=== PATIENT | male | born 1940 | race Caucasian/White ===

== ENCOUNTER 2017-11-07 04:51 | Inpatient (IN) | payer OTHER ==
[~2017-11-07] VITALS: Ht 180.3 cm; Wt 105.3 kg
[~2017-11-07 04:51] MED LIST: AMLO-110 PO; ASPEC325 PO; ASTN; ATV/1 PO; ATV1 PO; CETI10TA84 PO; CRS10 PO; FINA5TAB PO; FLV400 PO; METO25TA4 PO; NTRGSL/4 UT; PANT40TA PO
[2017-11-07] MEDS ORDERED: LORAZEPAM 2 MG/ML 1 ML VIAL IV STA (04:56)
[2017-11-07] MEDS ORDERED: SODIUM CHLORIDE 0.9% 250ML 250 ML IV STA (04:56)
[2017-11-07] MEDS ORDERED: ASPI-113 PO (05:10)
[2017-11-07] MEDS ORDERED: ROSU20TA PO (05:10)
[2017-11-07] MEDS ORDERED: LOSA1TAB38 PO (05:10)
[2017-11-07] MEDS ORDERED: FLV1 PO (05:10)
--- NOTE | 2017-11-07 05:17 | EMERGENCY ROOM VISIT NOTE ---
History First contact with patient: 04:56 Chief Complaint: SYNCOPE Stated Complaint: SYNCOPE Nursing Triage Summary: Patient arrived via EMS. EMS reports patient was sitting on toilet and stood up. Patient states he does not remember what happened after that but woke up laying supine on the floor with EMS around him. Patient reports that he had diarhea today and when he woke up he was very diaphoretic. Patient reports history of 3 FL and multiple stents. History of Present Illness The patient is a 77 year old male who presents to the Emergency Room for evaluation post syncope. Patient notes he awoke this evening with abdominal discomfort which relieved itself with diarrhea when he went to bathroom. Shortly there-after he must have passed out as found him laying on floor after hearing a noise in the bathroom. Per he was unconscious for almost 10 minutes and was just waking up as EMS arrived. EMS notes he was pale, diaphoretic, hypotensive, bradycardic and unwell on arrival. With IV, 750ml IV fluid and Zofran 4mg IV x 2 he has vastly improved. Patient notes he vaguely remembers EMS arriving but nothing prior to that. He notes associated right frontal headache, nausea continues, and fatigue. Denies neck pain, vision changes, vomiting, back pain, chest pain, abdominal pain, shortness of breath nor other symptoms. He has had no recent leg swelling, rashes, fevers, bruising , urinary symptoms nor other symptoms. He does not know if any black or bloody stools but hasn't noticed any. No medications taken extra this evening. Takes Asa 325mg PO daily but denies other blood thinner usage. Notes CAD history with multiple stents. He has previously been on Coumadin due to MIs but notes off this due to large thigh hematoma many years ago. He denies history of PE, DVT, Stroke, Seizures. Denies syncope issues in past. No recent reason to suspect dehydration other than single episode diarrhea this evening. Review of Systems See HPI for pertinent positives & negatives. A total of 10 systems reviewed and were otherwise negative. Past Medical/Surgical History Medical Problems: (1) CVA (cerebral vascular accident) HTN, Prostate enlargement, CAD, Anxiety, Hyperlipidemia Social History Smoking Status: Never Smoker Marital Status: Occupation Status: retired Current/Historical Medications Scheduled Amlodipine (Norvasc), 5 MG PO QPM Aspirin Enteric Coated (Ecotrin Or Generic), 325 MG PO QAM Azelastine Hcl (Astelin Nasal [place]), 200 SPRAYS NA PRN Cetirizine (Zyrtec), 10 MG PO QAM Finasteride (Proscar), 5 MG PO QPM Folic Acid (Folic Acid), 1 MG PO QAM Losartan Potassium (Cozaar), Unknown Dose PO BID Metoprolol Succinate (Toprol Xl), 25 MG PO QAM Nitroglycerin (Nitrostat), 0.4 MG UT PRN Pantoprazole (Protonix), 40 MG PO QAM Rosuvastatin Calcium (Crestor), 20 MG PO QPM Scheduled PRN Lorazepam (Ativan), 1 MG PO BID PRN for Anxiety/Agitation Physical Exam Vital Signs Date Time Temp Pulse Resp B/P (MAP) Pulse Ox O2 Delivery O2 Flow Rate FiO2 11/07/17 06:20 51 14 107/53 96 Room Air 11/07/17 05:08 49 11/07/17 05:01 36.8 52 16 124/72 95 Room Air 11/07/17 05:01 95 Room Air 11/07/17 05:01 52 16 124/72 95 Room Air 51 129/71 53 125/73 Physical Exam GENERAL: Patient is tired appearing and in mild distress. EYES: No scleral icterus, unremarkable pupils. ENT: Mucous membranes moist, no nasal congestion. NECK: No masses appreciated, no meningismus, trachea is midline. RESPIRATORY: No dyspnea. Clear to auscultation and equal bilaterally. No wheeze , no rhonchi. CARDIOVASCULAR: Bradycardic. No murmurs, rubs, gallops appreciated. GASTROINTESTINAL: Abdomen soft, nontender, no peritonitis. Bowel sounds positive. No masses appreciated. BACK: No midline tenderness, no CVA tenderness EXTREMITIES: Normal motion all extremities, no cyanosis, no edema. NEUROLOGIC: Alert and oriented, no acute motor or sensory deficits, no focal weakness, cranial nerves grossly intact. SKIN: No rash, no jaundice, no diaphoresis. Medical Decision & Procedures ER Provider Diagnostic Interpretation: X ray results are stated below per my interpretation: Chest: 1 view: No infiltrate, no effusion, normal cardiac border. KUB: 2 view: non specific bowel gas pattern without obstruction appreciated. Radiology results stated below per my review and radiologist interpretation: CT HEAD: Comparison: CT head 12/24/2008. A 1.7 cm region of hypodensity in the right occipital lobe (series 2, image 15) could represent a recent infarct or volume averaging with a sulcus. Further evaluation with MRI may be performed as clinically indicated. Mild chronic small vessel ischemic changes in the cerebral white matter. No ICH or mass effect. No skull fracture. Visualized sinuses and mastoid air cells are clear. Radiologist: Lakshmi Nava M.D. Laboratory Results 11/07/17 04:29 Red Blood Count 4.78, Mean Corpuscular Volume 92.9, Mean Corpuscular Hemoglobin 31.8, Mean Corpuscular Hemoglobin Concent 34.2, Mean Platelet Volume 9.9, Neutrophils (%) (Auto) 42.5, Lymphocytes (%) (Auto) 44.4, Monocytes (%) (Auto) 9.2, Eosinophils (%) (Auto) 3.0, Basophils (%) (Auto) 0.3, Neutrophils # (Auto) 3.28, Lymphocytes # (Auto) 3.43, Monocytes # (Auto) 0.71, Eosinophils # (Auto) 0.23, Basophils # (Auto) 0.02 11/07/17 04:29 Test 11/07/17 04:29 11/07/17 06:33 White Blood Count 7.72 K/uL (4.8-10.8) Red Blood Count 4.78 M/uL (4.7-6.1) Hemoglobin 15.2 g/dL (14.0-18.0) Hematocrit 44.4 % (42-52) Mean Corpuscular Volume 92.9 fL (80-100) Mean Corpuscular Hemoglobin 31.8 pg (25-34) Mean Corpuscular Hemoglobin Concent 34.2 g/dl (32-36) Platelet Count 195 K/uL (130-400) Mean Platelet Volume 9.9 fL (7.4-10.4) Neutrophils (%) (Auto) 42.5 % Lymphocytes (%) (Auto) 44.4 % Monocytes (%) (Auto) 9.2 % Eosinophils (%) (Auto) 3.0 % Basophils (%) (Auto) 0.3 % Neutrophils # (Auto) 3.28 K/uL (1.4-6.5) Lymphocytes # (Auto) 3.43 K/uL (1.2-3.4) Monocytes # (Auto) 0.71 K/uL (0.11-0.59) Eosinophils # (Auto) 0.23 K/uL (0-0.5) Basophils # (Auto) 0.02 K/uL (0-0.2) RDW Standard Deviation 44.0 fL (36.4-46.3) RDW Coefficient of Variation 13.0 % (11.5-14.5) Immature Granulocyte % (Auto) 0.6 % Immature Granulocyte # (Auto) 0.05 K/uL (0.00-0.02) Prothrombin Time 10.2 SECONDS (9.0-12.0) Prothromb Time International Ratio 1.0 (0.9-1.1) Activated Partial Thromboplast Time 21.9 SECONDS (21.0-31.0) Partial Thromboplastin Ratio 0.8 Anion Gap 5.0 mmol/L (3-11) Est Creatinine Clear Calc Drug Dose 68.6 ml/min Estimated GFR () 74.1 Estimated GFR (Non- 63.9 BUN/Creatinine Ratio 20.0 (10-20) Calcium Level 8.5 mg/dl (8.5-10.1) Phosphorus Level 3.5 mg/dl (2.5-4.9) Magnesium Level 2.2 mg/dl (1.8-2.4) Total Bilirubin 0.7 mg/dl (0.2-1) Direct Bilirubin 0.2 mg/dl (0-0.2) Aspartate Amino Transf (AST/SGOT) 19 U/L (15-37) Alanine Aminotransferase (ALT/SGPT) 26 U/L (12-78) Alkaline Phosphatase 71 U/L (45-117) Total Creatine Kinase 84 U/L (39-308) Creatine Kinase MB 1.6 ng/ml (0.5-3.6) Creatine Kinase MB Ratio 1.9 (0-3.0) Troponin I < 0.015 ng/ml (0-0.045) Total Protein 6.2 gm/dl (6.4-8.2) Albumin 3.4 gm/dl (3.4-5.0) Lipase 84 U/L (73-393) Medications Administered Medications (Trade) Dose Ordered Sig/Francesco Route Start Time Stop Time Status Last Admin Dose Admin Sodium Chloride 250 ml @ 999 mls/hr Q16M STAT IV 11/07/17 04:56 11/07/17 05:11 DC 11/07/17 04:56 999 MLS/HR Lorazepam (Ativan Inj) 0.5 mg NOW STAT IV 11/07/17 04:56 11/07/17 05:03 DC 11/07/17 05:16 0.5 MG Medical Decision Differential: Vaso-vagal, Intracerebral Event, Neurologic, Infectious, Volume Deficiency, Hypoglycemia, Electrolyte Abnormality, Cardiac Source, Toxicologic, amongst other pathologies entertained. 77 yr old male arrives for evaluation following syncopal event. Other than some residual nausea and mild right frontal headache he has no other symptoms and looks well. Chronically bradycardic with prolonged [place] which is unchanged from previous EKG. He has no evidence acute stroke by examination. He has no cp, sob, nor hypoxia to suggest PE. Symptoms not consistent with dissections. No fevers, no wbc elevation and no infectious findings. With getting up in middle of night and having diarrhea seems likely vagal, however felt with his history work-up necessary. CT reveals possible subacute infarct right occipital area. He is not TPA candidate given minimal symptoms and findings on CT, nor does he require Stroke Alert. Work-up otherwise is benign at this time. Will need further work up by hospitalist for MRI, cardiac rule out, etc. Patient stable and feeling improved with fluids and small dose IV ativan for nausea. Discussed with Dr Coughlin who will evaluate patient further. Head Trauma GCS Score: 15 Medication Reconcilliation Current Medication List: was personally reviewed by me Blood Pressure Screening Patient's blood pressure: Normal blood pressure Impression Primary Impression: Syncope Additional Impression: Abnormal CT scan of head Departure Information Referrals Randy Bemrudez D.O. (PCP) Patient Instructions My [facility] Problem Qualifiers
[2017-11-07 05:22] LABS: BASO % 0.3 %; BASO ABS # 0.02 K/uL (0-0.2); EOS ABS # 0.23 K/uL (0-0.5); HEMATOCRIT 44.4 % (42-52); HEMOGLOBIN 15.2 g/dL (14.0-18.0); IG# 0.05 K/uL (0.00-0.02); LYMPH % 44.4 %; LYMPH ABS # 3.43 K/uL (1.2-3.4); MEAN CELL VOLUME 92.9 fL (80-100); MEAN CORPUSCULAR HEMOGLOBIN 31.8 pg (25-34); MEAN CORPUSCULAR HGB CONC 34.2 g/dl (32-36); MEAN PLATELET VOLUME 9.9 fL (7.4-10.4); MONO % 9.2 %; MONO ABS # 0.71 K/uL (0.11-0.59); NEUT % 42.5 %; NEUT ABS # 3.28 K/uL (1.4-6.5); PLATELET COUNT 195 K/uL (130-400); WHITE BLOOD COUNT 7.72 K/uL (4.8-10.8)
[2017-11-07 05:28] LABS: PTT PATIENT 21.9 SECONDS (21.0-31.0)
[2017-11-07 05:39] LABS: ALBUMIN 3.4 gm/dl (3.4-5.0); ALT/SGPT 26 U/L (12-78); AST/SGOT 19 U/L (15-37); BLOOD UREA NITROGEN 22 mg/dl (7-18); CALCIUM 8.5 mg/dl (8.5-10.1); CARBON DIOXIDE 27 mmol/L (21-32); CREATININE 1.12 mg/dl (0.60-1.40); GLUCOSE 170 mg/dl (70-99); LIPASE 84 U/L (73-393); POTASSIUM 3.8 mmol/L (3.5-5.1); SODIUM 138 mmol/L (136-145)
[2017-11-07 05:42] LABS: ALKALINE PHOSPHATASE 71 U/L (45-117); CKMB 1.6 ng/ml (0.5-3.6); PHOSPHORUS 3.5 mg/dl (2.5-4.9); TOTAL PROTEIN 6.2 gm/dl (6.4-8.2)
--- NOTE | 2017-11-07 06:18 | DIAGNOSTIC IMAGING REPORT ---
CHEST ONE VIEW PORTABLE CLINICAL HISTORY: Generalized Weakness dyspnea COMPARISON STUDY: 06/01/2010 FINDINGS: The bones soft tissues and hemidiaphragms are normal. The cardiomediastinal silhouette is normal. The lungs are clear. The pulmonary vasculature is normal. IMPRESSION: Negative chest. The above report was generated using voice recognition software. It may contain grammatical, syntax or spelling errors. Electronically signed by: Perico Smith M.D. 11/07/2017 6:17 AM Dictated Date/Time: 11/07/2017 6:17 AM
--- NOTE | 2017-11-07 06:29 | DIAGNOSTIC IMAGING REPORT ---
KUB CLINICAL HISTORY: persistent vomiting COMPARISON STUDY: No previous studies for comparison. FINDINGS: The soft tissues, psoas shadows, renal outlines and intestinal gas pattern appear normal. There is no evidence for bowel obstruction. No abnormal abdominal calcifications are seen. IMPRESSION: Normal study. The above report was generated using voice recognition software. It may contain grammatical, syntax or spelling errors. Electronically signed by: Perico Smith M.D. 11/07/2017 6:28 AM Dictated Date/Time: 11/07/2017 6:28 AM
--- NOTE | 2017-11-07 06:57 | DIAGNOSTIC IMAGING REPORT ---
CT SCAN OF THE BRAIN WITHOUT IV CONTRAST CLINICAL HISTORY: Generalized weakness. COMPARISON STUDY: CT of the brain dated 12/24/2008. TECHNIQUE: Unenhanced axial CT scan of the brain is performed from the vertex to the skull base. A dose lowering technique was utilized adhering to the principles of ALARA. CT DOSE: 614.27 mGy.cm FINDINGS: Brain parenchyma: There are age-related involutional changes noting mild subcortical and periventricular microangiopathic change. There is no hemorrhage, mass effect, or evidence of acute territorial ischemia by CT criteria. Parks-white matter is preserved. No extra-axial fluid collection is seen. Ventricles, sulci, cisterns: Prominent secondary to involutional change. Intracranial vasculature: There is atherosclerotic calcification of the cavernous carotid and vertebral arteries. Calvarium: Unremarkable. Sinuses and mastoids: The visualized paranasal sinuses are clear. The mastoid air cells are well pneumatized. Orbits: The bony orbits are grossly intact. IMPRESSION: There is no hemorrhage, mass effect, or evidence of acute territorial ischemia by CT criteria. Electronically signed by: Tex Serrano M.D. 11/07/2017 6:56 AM Dictated Date/Time: 11/07/2017 6:55 AM
[2017-11-07] MEDS ORDERED: ATROPINE SO4 1 MG/ML 1ML VIAL IV PRN (07:30)
[2017-11-07] MEDS ORDERED: PROCHLORPERAZINE INJ 5 MG in SYRINGE 4 ML IV PRN (07:30)
[2017-11-07] MEDS ORDERED: TRAMADOL HCL 50 MG TAB PO PRN (07:30)
[2017-11-07] MEDS ORDERED: MoRPHine SULFATE 4 MG/ML 1 ML CARP\\VIAL IV PRN (07:30)
[2017-11-07] MEDS ORDERED: NITROGLYCERIN 0.4 MG SL PER TAB CHARGE SL PRN (07:30)
[2017-11-07] MEDS ORDERED: NITROGLYCERIN 0.4 MG SL PER TAB CHARGE UT SCH (07:30)
[2017-11-07] MEDS ORDERED: LORAZEPAM 1 MG TAB PO PRN (07:30)
[2017-11-07] MEDS ORDERED: POTASSIUM CHLORIDE 10 MEQ TABCR PO STA (07:48)
[2017-11-07 08:15] LABS: HEMOGLOBIN A1C 6.1 % (4.5-5.6)
[2017-11-07] MEDS ORDERED: IV FLUIDS COMPLETED PRN (08:15)
[2017-11-07 08:30] VITALS: BP 136/71; PULSE 54; TEMP 37; O2SAT 96; Ht 180.3 cm; Wt 105.3 kg
[2017-11-07] MEDS ORDERED: NSS + 20MEQ KCL 1000ML 1,000 ML IV ONE (09:00)
--- NOTE | 2017-11-07 09:06 | HISTORY & PHYSICAL EXAMINATION ---
DATE OF ADMISSION: 11/07/2017 PRIMARY CARE DOCTOR: Dr. Bermudez CHIEF COMPLAINT: Syncope. HISTORY OF PRESENT ILLNESS: History obtained from the patient, , and records. Medical history significant for CAD intervention, hypertension, hyperlipidemia, PVD (thoracic aortic aneurysm), hx PE status post Coumadin, sleep apnea, BPH, chronic back pain. Rcent confinement last in November 2011 under Orthopedic service for back surgery. Last few days, the patient not feeling well,. Two days ago, the patient had blurred vision, transient, bilateral. Yesterday abdominal cramping, loose stools, nonbloody. This morning had the urge to go to the bathroom, was feeling lightheaded as he tried to get up from the commode. Subsequently passed out. Patient was out for about 10 minutes on the commode as per . Patient denies chest pain or shortness of breath. MEDICAL HISTORY: As above. Colonoscopy a few weeks ago. 2D echo from February 2017 showed aortic root enlargement, EF 55%, small-sized basal inferior posterior wall motion abnormality. diastolic dysfunction. SURGERIES: He has had back surgery, TURP HOME MEDICATIONS: Include Ativan, Cozaar, Toprol, Nitrostat, Protonix, Crestor, aspirin, Astelin, Norvasc, Zyrtec, Proscar, folic acid. ALLERGIES: OMEPRAZOLE. FAMILY HISTORY: There is a family history of heart disease. PERSONAL AND SOCIAL HISTORY: Nonsmoker, no ETOH intake. 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 REVIEW OF SYSTEMS: As per HPI, all 10 systems reviewed, all other ROS negative. PHYSICAL EXAMINATION: VITAL SIGNS: Blood pressure was noted to be 124/72, pulse rate 52, later 49, RR 16, temperature 36.6, sats 94 on room air. Orthostatic vitals were negative. GENERAL: Obese. Comfortable, no respiratory distress. SKIN: Warm. Normal color. HEENT: Alopecia. Garza-[place] Ii palpebral conjunctivae. No ptosis. rhinophyma. Dry buccal mucosa. NECK: Short neck, supple. CHEST: Decreased effort. No tenderness. HEART: Bradycardic. No murmur. ABDOMEN: Some distention, no tender. EXTREMITIES: No edema, no bruising noted, no tenderness. NEUROLOGIC EXAMINATION: Coherent. No gross focality. LABORATORY DATA: hemoglobin 15.2, hematocrit 35.2, white blood cells 7.7, platelets 195. Sodium 138, potassium 3.8, chloride 106, CO2 27, BUN 30, creatinine 1.2, glucose 170. Troponin negative at 0.015. CT head showed no hemorrhage or mass effect, no ischemia. KUB x-ray, normal study. Chest x-ray showed negative pathology. EKG as per my interpretation, rate 50, first-degree AV block, Q-waves, some flattening in inferior leads. PRWP ASSESSMENT: 1. Syncope possible orthostasis 2 to diarrheal illness, rule out cdiff, recent colonoscopy (orthostatic VS were negative at the ER however) ? symptomatic bradycardia 2. HTN, patient's BP on the lower side 3. CAD, status post intervention 4. PVD 5. hx PE sp Coumadin 6. hyperglycemia, rule out diabetes. PLAN: Observation in PCU 2D echo RE syncope IVF Stool C. difficile hold beta singh for now for bradycardia. Cardio consult RE bradycardia. (Patient known to [facility]). Check Hemoglobin A1c DVT prophylaxis, Lovenox subcutaneously. FULL CODE. MTDD
[2017-11-07] MEDS: PANTOprazole SOD 40 MG TAB PO SCH (09:54)
[2017-11-07] MEDS: LOSARTAN POTASSIUM 50 MG TAB PO SCH ×2 (09:54→20:29)
[2017-11-07] MEDS: CETIRIZINE HCL 10 MG TAB PO SCH (09:54)
[2017-11-07] MEDS: ASPIRIN 325 MG ECTAB PO SCH (09:55)
[2017-11-07] MEDS: ENOXAPARIN 40 MG/0.4 ML SYR SC SCH (09:56)
--- NOTE | 2017-11-07 11:02 | Cardiology Consultation ---
Cardiology Consultation Date of Consultation: Nov 07, 2017 Requesting Physician: Dr. Waqar Coppola re: syncope Attending Financial Services Associate: Dr. Javier Nelson History of Present Illness Patient is a 77 year old male presents to the emergency department after syncopal episode. Patient reports diarrheal illness beginning yesterday afternoon. He woke in the middle night with abdominal discomfort and a significant urge to defecate. He sat on the commode, after he moved his bowels patient apparently lost consciousness. His came in and witnessed him slumped against the wall. There were no tonic-clonic movements. No tongue biting. reports unconscious episode lasted nearly 10 minutes. No post ictal state. Patient reports history of syncope on at least 2 occasions during his adult life. Telemetry reveals sinus bradycardia. Baseline ECG also reveals sinus bradycardia. Beta-singh has been placed on hold. Patient reports some intermittent visual changes he associates with complex migraine headaches. Notes some intermittent flashing which occurred yesterday. Denies focal weakness, slurred speech, dysphagia, falls, or paresthesias. No evidence of acute CVA per CT of the head. Past Medical/Surgical History Problem List: Medical Problems: (1) CVA (cerebral vascular accident) Family History Denies family history of premature coronary artery disease or sudden cardiac . Social History Smoking Status: Never Smoker Marital Status: Housing Status: lives with family Occupation: retired Review Of Systems General: The patient denies weight change, night sweats, fever, chills. Head: The patient denies headache and prior head trauma. Cardiovascular: The patient denies chest pain or chest discomfort, dyspnea on exertion, palpitations, PND, orthopnea, edema, spontaneous shortness of breath, syncope and near syncope. Pulmonary: The patient denies cough, wheeze, pleurisy, hemoptysis, sputum, and excessive snoring. Gastrointestinal: The patient denies nausea, vomiting, diarrhea, constipation, bloating, hematemesis, hematochezia, and abdominal pain. Skin: The patient denies diaphoresis and rash. Musculoskeletal: The patient denies joint pain, joint swelling, myalgia, back pain, neck pain and prior injuries. Neurological: The patient denies prior stroke and seizures Allergies Coded Allergies: Omeprazole (Verified Allergy, Unknown, "SENSITIVITY", 11/07/17) Propoxyphene (Verified Allergy, Unknown, "SENSITIVITY", 11/07/17) Medications Reported Home Medications Medications Dose Route/Sig Max Daily Dose Days Date Category Cozaar (Losartan Potassium) Unknown Strength Tab Unknown Dose PO BID 11/07/17 Reported Folic Acid 1 Mg Tab 1 Mg PO QAM 11/07/17 Reported Ecotrin Or Generic (Aspirin) 325 Mg Ectab 325 Mg PO QAM 11/07/17 Reported Crestor (Rosuvastatin Calcium) 20 Mg Tab 20 Mg PO QPM 11/07/17 Reported Toprol Xl (Metoprolol Succinate) 25 Mg Tabcr 25 Mg PO QAM 11/21/11 Reported Astelin Nasal [place] (Azelastine Hcl) 200 Sprays/30 Ml [place] 200 Sprays NA PRN 11/21/11 Reported Ativan (Lorazepam) 1 Mg Tab 1 Mg PO BID PRN 11/21/11 Reported Zyrtec (Cetirizine HCl) 10 Mg Tab 10 Mg PO QAM 05/27/10 Reported Proscar (Finasteride) 5 Mg Tab 5 Mg PO QPM 05/27/10 Reported Norvasc (Amlodipine Besylate) 5 Mg Tab 5 Mg PO QPM 05/27/10 Reported Protonix (Pantoprazole Sodium) 40 Mg Tab 40 Mg PO QAM 12/24/08 Reported Nitrostat (Nitroglycerin) 0.4 Mg Tab 0.4 Mg UT PRN 12/24/08 Reported Physical Exam Vital Signs (Last 8hrs): Last 8 Hrs Date Time Temp Pulse Resp B/P (MAP) Pulse Ox O2 Delivery O2 Flow Rate FiO2 11/07/17 08:30 37.0 54 16 136/71 96 Room Air 11/07/17 08:15 60 16 117/57 95 11/07/17 06:20 51 14 107/53 96 Room Air 11/07/17 05:08 49 11/07/17 05:01 36.8 52 16 124/72 95 Room Air 11/07/17 05:01 95 Room Air 11/07/17 05:01 52 16 124/72 95 Room Air 51 129/71 53 125/73 General Appearance: Alert and Oriented x3. NAD. Head: Normocephalic Atraumatic. Eyes: PERRLA, EOMI, conjunctiva and sclera clear Neck: Supple. No carotid bruits noted. No JVD. No HJD. Respiratory: Breath sounds clear to auscultation bilaterally. No w/r/r. Cardiovascular: Reg rate and rhythm. S1 and S2 noted. No murmurs, rubs, gallops. PMI non displace. Abdomen: Normal bowel sounds, soft nontender. no abdominal bruits. Extremities: No edema, no clubbing or cyanosis. distal pulses 2/4 bilaterally. Neuro: No focal deficits. Psychiatric: Normal affect. Data Last 24 Hours Test 11/07/17 04:29 11/07/17 09:45 White Blood Count 7.72 K/uL Red Blood Count 4.78 M/uL Hemoglobin 15.2 g/dL Hematocrit 44.4 % Mean Corpuscular Volume 92.9 fL Mean Corpuscular Hemoglobin 31.8 pg Mean Corpuscular Hemoglobin Concent 34.2 g/dl Platelet Count 195 K/uL Mean Platelet Volume 9.9 fL Neutrophils (%) (Auto) 42.5 % Lymphocytes (%) (Auto) 44.4 % Monocytes (%) (Auto) 9.2 % Eosinophils (%) (Auto) 3.0 % Basophils (%) (Auto) 0.3 % Neutrophils # (Auto) 3.28 K/uL Lymphocytes # (Auto) 3.43 K/uL Monocytes # (Auto) 0.71 K/uL Eosinophils # (Auto) 0.23 K/uL Basophils # (Auto) 0.02 K/uL RDW Standard Deviation 44.0 fL RDW Coefficient of Variation 13.0 % Immature Granulocyte % (Auto) 0.6 % Immature Granulocyte # (Auto) 0.05 K/uL Prothrombin Time 10.2 SECONDS Prothromb Time International Ratio 1.0 Activated Partial Thromboplast Time 21.9 SECONDS Partial Thromboplastin Ratio 0.8 Sodium Level 138 mmol/L Potassium Level 3.8 mmol/L Chloride Level 106 mmol/L Carbon Dioxide Level 27 mmol/L Anion Gap 5.0 mmol/L Blood Urea Nitrogen 22 mg/dl Creatinine 1.12 mg/dl Est Creatinine Clear Calc Drug Dose 68.6 ml/min Estimated GFR () 74.1 Estimated GFR (Non- 63.9 BUN/Creatinine Ratio 20.0 Random Glucose 170 mg/dl Estimated Average Glucose 128 mg/dl Hemoglobin A1c 6.1 % Calcium Level 8.5 mg/dl Phosphorus Level 3.5 mg/dl Magnesium Level 2.2 mg/dl Total Bilirubin 0.7 mg/dl Direct Bilirubin 0.2 mg/dl Aspartate Amino Transf (AST/SGOT) 19 U/L Alanine Aminotransferase (ALT/SGPT) 26 U/L Alkaline Phosphatase 71 U/L Total Creatine Kinase 84 U/L Creatine Kinase MB 1.6 ng/ml Creatine Kinase MB Ratio 1.9 Troponin I < 0.015 ng/ml Total Protein 6.2 gm/dl Albumin 3.4 gm/dl Lipase 84 U/L Thyroid Stimulating Hormone (TSH) 4.090 uIu/ml Lyme Disease IgG Antibody NEG Lyme Disease IgM Antibody NEG Urine Color YELLOW Urine Appearance CLEAR Urine pH 5.0 Urine Specific [place] 1.022 Urine Protein NEG Urine Glucose (UA) NEG Urine Ketones NEG Urine Occult Blood NEG Urine Nitrite NEG Urine Bilirubin NEG Urine Urobilinogen NEG Urine Leukocyte Esterase NEG Urine WBC (Auto) 1-5 /hpf Urine RBC (Auto) 0-4 /hpf Urine Hyaline Casts (Auto) 1-5 /lpf Urine Epithelial Cells (Auto) 5-10 /lpf Urine Bacteria (Auto) NEG Imaging: CT of the head negative for acute ischemia EKG: Sinus bradycardia Telemetry reviewed: Sinus rhythm and sinus bradycardia Assessment & Plan Final impression: 1. 77-year-old male admitted with acute syncope - symptoms consistent with vasovagal etiology. History of prior syncope on at least 2 occasions during adult life. Chronic bradycardia in the setting of beta-singh use noted. 2. Chronic CAD with history of remote RCA interventions ultimately leading to RCA occlusion and stable class I-II angina pectoris 3. 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 History of pulmonary embolus previously treated with anticoagulation 5. Transient visual changes previously associated with complex migraine Plan/recommendations: Discontinue Toprol-XL. Recommend 14 days ZIO monitor in the outpatient setting and follow-up with Dr. Poole as scheduled November 22, 2017. Other cardiovascular medications will be continued as listed above which I reviewed and updated today. Consider further ophthalmologic evaluation of 'flashing' reported by patient. Continue to monitor telemetry during hospitalization. Thank you for allowing me to participate in the care of your patient.
[2017-11-07 11:41] VITALS: BP 136/86; PULSE 65; TEMP 36.6; O2SAT 96
[2017-11-07 15:00] VITALS: BP 147/81; PULSE 59; TEMP 36.3; TEMP 36.6; O2SAT 93
--- NOTE | 2017-11-07 16:30 | ECHOCARDIOGRAM REPORT ---
*NOTICE TO RECEIVING [employer]ENCY This information is strictly Confidential and protected under [place] law. [place] law prohibits you from making any further disclosure of this information unless further disclosure is expressly permitted by the written consent of the person to whom it pertains or is authorized by law. A general authorization for the release of medical or other information is not sufficient for this purpose. Hospital accepts no responsibility if the information is made available to any other person, INCLUDING THE PATIENT. Interpretation Summary * Name: JUANY MALONE Study Date: 11/07/2017 08:52 AM BP: 107/53 mmHg * Patient Location: [facility] HR: 51 * : 1940 (M/d/yyyy) Gender: Male Height: 70 in * Age: 77 yrs Ethnicity: [place] Weight: 220 lb * Ordering Physician: Ernesto Webb * Referring Physician: Self, Referred * Performed By: Millie Pierre RDCS * * Reason For Study: Syncope * BSA: 2.2 m2 * The study was technically adequate. * There is no comparison study available. * -- Conclusions -- * Ejection Fraction = 55-60%. * There is mild concentric left ventricular hypertrophy. * There is a small wall motion abnormality involving the base posterior, and base inferior garcia with hypokinesis of the segments. * Mild aortic regurgitation. * The aortic root is severely enlarged, 5.0 cm. * The ascending aorta is moderately enlarged, 4.5 cm. * Grade I diastolic dysfunction, (abnormal relaxation pattern). Procedure Details * A complete two-dimensional transthoracic echocardiogram was performed (2D, M-mode, Doppler and color flow Doppler). Left Ventricle * The left ventricle is normal in size. * There is mild concentric left ventricular hypertrophy. * Ejection Fraction = 55-60%. * Left ventricular systolic function is normal. * There is a small wall motion abnormality involving the base posterior, and base inferior garcia with hypokinesis of the segments. Right Ventricle * The right ventricle is normal size. * The right ventricular systolic function is normal as assessed by tricuspid annular plane systolic excursion (TAPSE) (normal >1.5 cm). Atria * The left atrial size is normal. * Right atrial size is normal. * There is no evidence of atrial septal defect, but resolution does not allow assessment for a patent foramen ovale. Mitral Valve * The mitral valve is normal. * There is no mitral valve stenosis. * There is trace mitral regurgitation. Tricuspid Valve * The tricuspid valve is normal. * There is no tricuspid stenosis. * There is mild tricuspid regurgitation. * Doppler findings do not suggest pulmonary hypertension. Aortic Valve * The aortic valve is trileaflet. * Aortic stenosis is absent. * Mild aortic regurgitation. Pulmonic Valve * The pulmonary valve is inadequately visualized, but the Doppler data is adequate for interpretation. * There is no pulmonic valvular stenosis. * Trace pulmonic valvular regurgitation. Great Vessels * The aortic root is severely enlarged, 5.0 cm. The ascending aorta is moderately enlarged, 4.5 cm. Pericardium/Pleural * There is no pericardial effusion. Great Vessels * Normal inferior vena cava diameter and respiratory variation suggests normal central venous pressure. Left Ventricular Diastolic Function * Grade I diastolic dysfunction, (abnormal relaxation pattern). MMode 2D Measurements and Calculations IVSd 1.4 cm IVSs 1.7 cm LVIDd 3.4 cm LVIDs 2.3 cm LVPWd 0.88 cm LVPWs 1.6 cm IVS/LVPW 1.6 FS 31.1 % EDV(Teich) 46.5 ml ESV(Teich) 18.6 ml EF(Teich) 60.1 % EDV(cubed) 38.4 ml ESV(cubed) 12.5 ml EF(cubed) 67.3 % % IVS thick 16.5 % % LVPW thick 76.5 % LV mass(C)d 121.1 grams LV mass(C)dI 55.7 grams/m\S\2 LV mass(C)s 131.5 grams LV mass(C)sI 60.5 grams/m\S\2 SV(Teich) 28.0 ml SI(Teich) 12.9 ml/m\S\2 SV(cubed) 25.8 ml SI(cubed) 11.9 ml/m\S\2 Ao root diam 4.8 cm Ao root area 17.9 cm\S\2 ACS 3.2 cm LA dimension 3.3 cm LA/Ao 0.68 LVAd ap4 40.8 cm\S\2 LVLd ap4 8.8 cm EDV(MOD-sp4) 156.8 ml EDV(sp4-el) 160.6 ml LVAs ap4 23.4 cm\S\2 LVLs ap4 7.1 cm ESV(MOD-sp4) 65.8 ml ESV(sp4-el) 65.5 ml EF(MOD-sp4) 58.0 % EF(sp4-el) 59.2 % LVAd ap2 39.1 cm\S\2 LVLd ap2 9.5 cm EDV(MOD-sp2) 138.2 ml EDV(sp2-el) 136.8 ml LVAs ap2 22.5 cm\S\2 LVLs ap2 8.6 cm ESV(MOD-sp2) 56.2 ml ESV(sp2-el) 50.3 ml EF(MOD-sp2) 59.3 % EF(sp2-el) 63.2 % LVLd %diff 7.3 % EDV(MOD-bp) 151.9 ml LVLs %diff 16.8 % ESV(MOD-bp) 64.3 ml EF(MOD-bp) 57.7 % SV(MOD-sp4) 91.0 ml SI(MOD-sp4) 41.9 ml/m\S\2 SV(MOD-sp2) 82.0 ml SI(MOD-sp2) 37.7 ml/m\S\2 SV(MOD-bp) 87.6 ml SI(MOD-bp) 40.3 ml/m\S\2 SV(sp4-el) 95.1 ml SI(sp4-el) 43.8 ml/m\S\2 SV(sp2-el) 86.4 ml SI(sp2-el) 39.8 ml/m\S\2 Doppler Measurements and Calculations MV E max deloris 56.6 cm/sec MV A max deloris 99.2 cm/sec MV E/A 0.57 MV dec time 0.24 sec Ao V2 max 111.7 cm/sec Ao max PG 5.0 mmHg Ao max PG (full) 1.3 mmHg AI max deloris 331.5 cm/sec AI max PG 44.0 mmHg AI dec slope 95.1 cm/sec\S\2 AI P1/2t 1021.2 msec LV V1 max PG 3.6 mmHg LV V1 max 95.5 cm/sec PA V2 max 105.3 cm/sec PA max PG 4.4 mmHg PI max deloris 160.5 cm/sec PI max PG 10.3 mmHg PI dec slope 62.1 cm/sec\S\2 PI P1/2t 756.6 msec TR max deloris 214.6 cm/sec
[2017-11-07 19:31] VITALS: BP 153/91; PULSE 76; TEMP 37; O2SAT 91
[2017-11-07] MEDS: AMLODIPINE BESYLATE 5 MG TAB PO SCH (20:30)
[2017-11-07] MEDS: ROSUVASTATIN CALCIUM 20 MG TAB PO SCH (20:30)
[2017-11-07] MEDS: FINASTERIDE 5 MG TAB PO SCH (20:30)
[2017-11-08] VITALS (8 sets, daily range): BP systolic 105–158; BP diastolic 62–90; PULSE 57–71; TEMP 36.6–37.1; O2SAT 93–98
[2017-11-08 07:22] LABS: BASO % 0.1 %; BASO ABS # 0.01 K/uL (0-0.2); EOS % 1.2 %; EOS ABS # 0.08 K/uL (0-0.5); HEMATOCRIT 43.6 % (42-52); IG# 0.02 K/uL (0.00-0.02); LYMPH % 18.5 %; LYMPH ABS # 1.24 K/uL (1.2-3.4); MEAN CELL VOLUME 92.4 fL (80-100); MEAN CORPUSCULAR HEMOGLOBIN 31.8 pg (25-34); MEAN CORPUSCULAR HGB CONC 34.4 g/dl (32-36); MEAN PLATELET VOLUME 9.7 fL (7.4-10.4); MONO % 6.4 %; MONO ABS # 0.43 K/uL (0.11-0.59); NEUT % 73.5 %; NEUT ABS # 4.91 K/uL (1.4-6.5); PLATELET COUNT 170 K/uL (130-400); RED CELL DISTRIBUTION WIDTH CV 12.9 % (11.5-14.5); RED CELL DISTRIBUTION WIDTH SD 43.6 fL (36.4-46.3); WHITE BLOOD COUNT 6.69 K/uL (4.8-10.8)
[2017-11-08] MEDS: CETIRIZINE HCL 10 MG TAB PO SCH (07:49)
[2017-11-08] MEDS: ASPIRIN 325 MG ECTAB PO SCH (07:49)
[2017-11-08] MEDS: PANTOprazole SOD 40 MG TAB PO SCH (07:49)
[2017-11-08] MEDS: LOSARTAN POTASSIUM 50 MG TAB PO SCH ×2 (07:49→20:38)
[2017-11-08] MEDS: ENOXAPARIN 40 MG/0.4 ML SYR SC SCH (07:50)
[2017-11-08 10:47] LABS: CALCIUM 8.4 mg/dl (8.5-10.1); CREATININE 0.96 mg/dl (0.60-1.40); POTASSIUM 3.9 mmol/L (3.5-5.1)
[2017-11-08] MEDS: ACETAMINOPHEN 325 MG TAB PO PRN ×2 (12:33→23:28)
[2017-11-08] MEDS: ROSUVASTATIN CALCIUM 20 MG TAB PO SCH (20:37)
[2017-11-08] MEDS: AMLODIPINE BESYLATE 5 MG TAB PO SCH (20:38)
[2017-11-08] MEDS: FINASTERIDE 5 MG TAB PO SCH (20:38)
--- NOTE | 2017-11-08 20:55 | Progress Note ---
Medicine Progress Note Date & Time of Visit: Nov 08, 2017 at 15:30 . Subjective CC: Follow-up visit for syncope and other problems. HPI: Feels better. No further episodes of syncope or near syncope. No chest pain, palpitations, dyspnea. No headaches. Visual changes improved, but still has some visual distortion. ROS: General- no fever, no chills Resp- no cough; no shortness of breath Cardiac- as noted above in HPI GI- no nausea, no vomiting, no diarrhea, no constipation - no dysuria, no difficulty voiding . Objective Last 8 Hrs Date Time Temp Pulse Resp B/P (MAP) Pulse Ox O2 Delivery O2 Flow Rate FiO2 11/08/17 20:37 137/82 (100) 11/08/17 19:40 Room Air 11/08/17 16:00 Room Air 11/08/17 15:42 36.7 65 18 133/75 (94) 95 Room Air Physical Exam: General- no distress Lungs- clear to auscultation; no respiratory distress Cardiovascular- RRR; no murmur or gallop appreciated; no JVD; no pretibial edema Abdomen- + bowel sounds, soft, nontender Extremities- no cyanosis; no calf tenderness Neuro- alert, oriented; PERRL, EOMI; visual avitia grossly intact; no facial palsy; no dysarthria; no aphasia; motor strength upper and lower extremities 5/5 Skin- warm & dry . Laboratory Results: Last 24 Hours Test 11/08/17 07:01 White Blood Count 6.69 K/uL Red Blood Count 4.72 M/uL Hemoglobin 15.0 g/dL Hematocrit 43.6 % Mean Corpuscular Volume 92.4 fL Mean Corpuscular Hemoglobin 31.8 pg Mean Corpuscular Hemoglobin Concent 34.4 g/dl Platelet Count 170 K/uL Mean Platelet Volume 9.7 fL Neutrophils (%) (Auto) 73.5 % Lymphocytes (%) (Auto) 18.5 % Monocytes (%) (Auto) 6.4 % Eosinophils (%) (Auto) 1.2 % Basophils (%) (Auto) 0.1 % Neutrophils # (Auto) 4.91 K/uL Lymphocytes # (Auto) 1.24 K/uL Monocytes # (Auto) 0.43 K/uL Eosinophils # (Auto) 0.08 K/uL Basophils # (Auto) 0.01 K/uL RDW Standard Deviation 43.6 fL RDW Coefficient of Variation 12.9 % Immature Granulocyte % (Auto) 0.3 % Immature Granulocyte # (Auto) 0.02 K/uL Sodium Level 140 mmol/L Potassium Level 3.9 mmol/L Chloride Level 110 mmol/L Carbon Dioxide Level 29 mmol/L Anion Gap 1.0 mmol/L Blood Urea Nitrogen 11 mg/dl Creatinine 0.96 mg/dl Est Creatinine Clear Calc Drug Dose 82.8 ml/min Estimated GFR () 89.3 Estimated GFR (Non- 77.0 BUN/Creatinine Ratio 11.7 Random Glucose 103 mg/dl Calcium Level 8.4 mg/dl Assessment & Plan SYNCOPE Episode of syncope while sitting on the toilet moving his bowels. Syncope probably combination of vasovagal episode and dehydration. No further symptoms. VISUAL CHANGES Patient describes visual changes the day prior to admission with left homonymous superior quadrantanopia. Field cut has improved, but patient still describes distorted vision. Head CT negative. Check MRI to rule out occipital event. CORONARY ARTERY DISEASE No anginal symptoms. Continue aspirin, metoprolol, statin. HYPERTENSION Follow titrate therapy. ANEURYSM THORACIC AORTA Aortic root measured 5.0 cm and ascending aorta 4.5 cm by echo. Measurements are comparable to CT performed 09/07/15. Ongoing management of hypertension and dyslipidemia. Follow. DYSLIPIDEMIA Continue rosuvastatin. VTE PROPHYLAXIS SQ enoxaparin. Ambulate. DISPOSITION Expected discharge to home. Internal Medicine follow-up with Dr. Bermudez. Cardiology follow-up with Dr. Poole. ADDENDUM: MRI performed this evening demonstrated subacute infarct right occipital lobe. Not candidate for TPA due to onset of symptoms day prior to admission. Already receiving aspirin; add clopidogrel. Initiate stroke protocol. Consult Neurology. . Current Inpatient Medications: Current Inpatient Medications Medications (Trade) Dose Ordered Sig/Francesco Route Start Time Stop Time Status Last Admin Dose Admin Enoxaparin Sodium (Lovenox Inj) 40 mg Q24H SC 11/07/17 09:00 12/07/17 08:59 11/08/17 07:50 40 MG Acetaminophen (Tylenol Tab) 650 mg Q4H PRN PO 11/07/17 07:30 12/07/17 07:29 11/08/17 12:33 650 MG Nitroglycerin (Nitrostat Tab) 0.4 mg UD PRN SL 11/07/17 07:30 12/07/17 07:29 Tramadol HCl (Ultram Tab) 25 mg Q6H PRN PO 11/07/17 07:30 12/07/17 07:29 Morphine Sulfate (MoRPHine SULFATE INJ) 4 mg Q3H PRN IV 11/07/17 07:30 11/21/17 07:29 Amlodipine Besylate (Norvasc Tab) 5 mg QPM PO 11/07/17 21:00 12/07/17 20:59 11/08/17 20:38 5 MG Aspirin (Ecotrin Tab) 325 mg QAM PO 11/07/17 09:00 12/07/17 08:59 11/08/17 07:49 325 MG Cetirizine HCl (zyrTEC TAB) 10 mg QAM PO 11/07/17 09:00 12/07/17 08:59 11/08/17 07:49 10 MG Finasteride (Proscar Tab) 5 mg QPM PO 11/07/17 21:00 12/07/17 20:59 11/08/17 20:38 5 MG Folic Acid (Folvite Tab) 1 mg QAM PO 11/07/17 09:00 12/07/17 08:59 11/08/17 07:49 1 MG Lorazepam (Ativan Tab) 1 mg BID PRN PO 11/07/17 07:30 12/07/17 07:29 Pantoprazole Sodium (Protonix Tab) 40 mg QAM PO 11/07/17 09:00 12/07/17 08:59 11/08/17 07:49 40 MG Rosuvastatin Calcium (Crestor Tab) 20 mg QPM PO 11/07/17 21:00 12/07/17 20:59 11/08/17 20:37 20 MG Miscellaneous Information (Order Awaiting Action) 1 ea QS N/A 11/07/17 16:00 12/07/17 15:59 Losartan Potassium (coZAAR TAB) 50 mg BID PO 11/07/17 09:00 12/07/17 08:59 11/08/17 20:38 50 MG Prochlorperazine Edisylate 5 mg/ Syringe 5 ml @ 5 mls/min Q6H PRN IV 11/07/17 07:30 12/07/17 07:29 Atropine Sulfate (Atropine Sulfate 1MG/Ml Inj) 0.5 mg UD PRN IV 11/07/17 07:30 12/07/17 07:29 Miscellaneous (Iv Fluids Completed) 1 ea PRN PRN N/A 11/07/17 08:15 11/07/18 08:14
--- NOTE | 2017-11-08 20:57 | DIAGNOSTIC IMAGING REPORT ---
BRAIN WITHOUT CONTRAST HISTORY: Mental status change visual changes, r/o stroke TECHNIQUE: Multiplanar multisequence MRI of the brain was performed without the use of contrast. COMPARISON STUDY: None FINDINGS: Acute infarct medial aspect right occipital lobe. Findings of mild to moderate cerebellar as well as cerebral atrophy. Moderate chronic small vessel change. Ventricular system is midline. Globes are symmetric. Moderate chronic small vessel change throughout both cerebral hemispheres. Increased signal within the right occipital region indicates that this is most likely a subacute infarct. IMPRESSION: 1. Subacute infarct right occipital lobe. 2. Atrophy. 3. Moderate chronic small vessel change The above report was generated using voice recognition software. It may contain grammatical, syntax or spelling errors. Electronically signed by: Perico Smith M.D. 11/08/2017 8:56 PM Dictated Date/Time: 11/08/2017 8:44 PM
[2017-11-08] MEDS ORDERED: PHARMACIST DISCHARGE MED REC CONSULT PRN (21:30)
[2017-11-09] VITALS (7 sets, daily range): BP systolic 107–170; BP diastolic 61–92; PULSE 56–73; TEMP 36.5–37.3; O2SAT 93–95
--- NOTE | 2017-11-09 06:50 | DIAGNOSTIC IMAGING REPORT ---
CAROTID DOPPLER NECK ART CLINICAL HISTORY: 77 years-old Male with Stroke. Acute strokelike symptoms COMPARISON: Brain MRI 11/08/2017 TECHNIQUE: Multiple real time sonographic images of the carotid bifurcations were obtained assessing espinoza scale, color Doppler and spectral wave form appearance FINDINGS: RIGHT CAROTID: The peak systolic velocity of the mid internal carotid artery measured 51 cm/sec. The end diastolic velocity measured 19.6 cm/sec. The ICA to CCA ratio measured 1.1 which correlates with a stenosis of 0-50%. Peak systolic velocity of the distal aspect right common carotid artery measured 59 cm/s. Blood pressure on the right measured 153/83. No significant atherosclerotic plaquing on the right. LEFT CAROTID: The peak systolic velocity of the mid internal carotid artery measured 53.5 cm/sec. The end diastolic velocity measured 19.5 cm/sec. The ICA to CCA ratio measured 1.6 which correlates with a stenosis of 0-50%. Peak systolic velocity of the distal left common carotid artery measured 45 cm/s. Blood pressure on the left measured 158/82. No significant atherosclerotic plaquing on the left. There is normal antegrade vertebral flow bilaterally. IMPRESSION: 1. No hemodynamically significant stenosis or significant atherosclerotic plaquing. 2. Normal antegrade vertebral flow bilaterally. The above report was generated using voice recognition software. It may contain grammatical, syntax or spelling errors. Electronically signed by: Abundio Drake M.D. 11/09/2017 6:49 AM Dictated Date/Time: 11/09/2017 6:45 AM
[2017-11-09] MEDS: ASPIRIN 81 MG ECTAB PO SCH (07:39)
[2017-11-09] MEDS: PANTOprazole SOD 40 MG TAB PO SCH (07:40)
[2017-11-09] MEDS: CETIRIZINE HCL 10 MG TAB PO SCH (07:40)
[2017-11-09] MEDS: CLOPIDOGREL BISULFATE 75 MG TAB PO SCH (07:40)
[2017-11-09] MEDS: ENOXAPARIN 40 MG/0.4 ML SYR SC SCH (07:41)
[2017-11-09] MEDS: METOPROLOL SUCC 25MG EXT REL TAB PO SCH (07:43)
--- NOTE | 2017-11-09 13:30 | Neurology Consultation ---
Neurology Consultation Date of Consultation: Nov 09, 2017. Attending Physician: Waqar Coppola M.D. Primary Care Physician: Randy Bermudez D.O. Reason for Consultation: stroke History of Present Illness Source: patient, spouse Arnulfo is a 77 year old male with PMH DC x 3 with 5 stents, hypertension, DL, PVD (thoracic aortic aneurysm), hx PE status post Coumadin, sleep apnea, BPH, chronic back pain. He states several days ago he had a headache with some blurring out of vision which was transient. He states he went fishing and stopped afterward for soda and was having some difficulty with seeing the CC at the self check out and had to have some assistance. He drove home and when sitting at the light he noticed the car traveling in front of him was faded out and then returned to his vision. He woke at 4am with some cramping in his stomach which he thought was going to be a bowel movement. He went to the bathroom was lightheaded with standing and passes out. His called the EMS. He was out for about 10 minutes was not confused after the episode. He was brought to the hospital and had a CT head that was negative. conclusion was he had a vasovagal episode but when he mentioned the graying out of vision Dr Coppola decided to order a MRI and there was a stroke on imaging. He is followed with Dr Poole who wanted to keep him on coumadin for a lifetime but he developed a large hematoma in his right arm. He was then switched to aspirin 325 mg daily. denies CP, SOB, abdominal pain, one sided weakness, numbness tingling, N, V, slurred speech, swallowing issues. Past Medical/Surgical History Medical Problems: (1) Abnormal CT scan of head Status: Acute (2) Syncope Status: Acute Social History Smoking Status: Never smoker Smokeless Tobacco Use: No Alcohol Use: socially Marital Status: Occupation Status: retired Allergies Coded Allergies: Omeprazole (Verified Allergy, Unknown, "SENSITIVITY", 11/07/17) Propoxyphene (Verified Allergy, Unknown, "SENSITIVITY", 11/07/17) Current Inpatient Medications Current Inpatient Medications Medications (Trade) Dose Ordered Sig/Francesco Route Start Time Stop Time Status Last Admin Dose Admin Enoxaparin Sodium (Lovenox Inj) 40 mg Q24H SC 11/07/17 09:00 12/07/17 08:59 11/09/17 07:41 40 MG Acetaminophen (Tylenol Tab) 650 mg Q4H PRN PO 11/07/17 07:30 12/07/17 07:29 11/08/17 23:28 650 MG Nitroglycerin (Nitrostat Tab) 0.4 mg UD PRN SL 11/07/17 07:30 12/07/17 07:29 Tramadol HCl (Ultram Tab) 25 mg Q6H PRN PO 11/07/17 07:30 12/07/17 07:29 Morphine Sulfate (MoRPHine SULFATE INJ) 4 mg Q3H PRN IV 11/07/17 07:30 11/21/17 07:29 Amlodipine Besylate (Norvasc Tab) 5 mg QPM PO 11/07/17 21:00 12/07/17 20:59 11/08/17 20:38 5 MG Cetirizine HCl (zyrTEC TAB) 10 mg QAM PO 11/07/17 09:00 12/07/17 08:59 11/09/17 07:40 10 MG Finasteride (Proscar Tab) 5 mg QPM PO 11/07/17 21:00 12/07/17 20:59 11/08/17 20:38 5 MG Folic Acid (Folvite Tab) 1 mg QAM PO 11/07/17 09:00 12/07/17 08:59 11/09/17 07:40 1 MG Lorazepam (Ativan Tab) 1 mg BID PRN PO 11/07/17 07:30 12/07/17 07:29 Pantoprazole Sodium (Protonix Tab) 40 mg QAM PO 11/07/17 09:00 12/07/17 08:59 11/09/17 07:40 40 MG Rosuvastatin Calcium (Crestor Tab) 20 mg QPM PO 11/07/17 21:00 12/07/17 20:59 11/08/17 20:37 20 MG Miscellaneous Information (Order Awaiting Action) 1 ea QS N/A 11/07/17 16:00 12/07/17 15:59 Prochlorperazine Edisylate 5 mg/ Syringe 5 ml @ 5 mls/min Q6H PRN IV 11/07/17 07:30 12/07/17 07:29 Atropine Sulfate (Atropine Sulfate 1MG/Ml Inj) 0.5 mg UD PRN IV 11/07/17 07:30 12/07/17 07:29 Miscellaneous (Iv Fluids Completed) 1 ea PRN PRN N/A 11/07/17 08:15 11/07/18 08:14 Metoprolol Succinate (Toprol Xl Tab) 25 mg QAM PO 11/09/17 09:00 12/09/17 08:59 11/09/17 07:43 25 MG Aspirin (Ecotrin Tab) 81 mg QAM PO 11/09/17 09:00 12/09/17 08:59 11/09/17 07:39 81 MG Clopidogrel Bisulfate (plAVix TAB) 75 mg QAM PO 11/09/17 09:00 12/09/17 08:59 11/09/17 07:40 75 MG Miscellaneous Information (Pharmacist Discharge Med Rec Consult) 1 ea UD PRN N/A 11/08/17 21:30 12/08/17 21:29 Physical Exam Vital Signs (Past 24 Hrs): Date Time Temp Pulse Resp B/P (MAP) Pulse Ox O2 Delivery O2 Flow Rate FiO2 11/09/17 12:00 Room Air 11/09/17 11:28 37.3 59 18 146/83 (104) 94 Room Air 11/09/17 08:00 Room Air 11/09/17 07:39 36.9 73 18 128/81 (97) 94 Room Air 11/09/17 04:00 Room Air 11/09/17 04:00 36.7 57 18 107/61 (76) 95 Room Air 11/09/17 00:00 Room Air 11/08/17 23:31 36.8 59 20 150/85 (106) 95 Room Air 11/08/17 20:49 36.6 57 20 158/90 (112) 95 Room Air 11/08/17 20:37 137/82 (100) 11/08/17 19:40 Room Air 11/08/17 16:00 Room Air 11/08/17 15:42 36.7 65 18 133/75 (94) 95 Room Air Physical Exam: Constitutional: appearance nourished, healthy and normal Ears, Nose, Mouth and Throat: mucous membranes moist, no injection and skin normal, eyes normal Cardiovascular: normal S-1 and S-2 and regular rate and rhythm Respiratory: clear to auscultation (CTA) and no rales, rhonchi or wheeze Musculoskeletal: no peripheral edema and good distal pulses Skin: no stigmata of neurocutaneous disease noted and normal and intact Eyes: extraocular muscles intact (EOMI) and pupils equal, round and reactive to light (PERRL), no gross field cut. has some type of gold aura with looking down and to the right NEUROLOGIC EXAMINATION: Mental status: Alert and interactive Oriented to full date and location Oriented to person Speech fluent with no evidence of aphasia Cranial Nerves smile eye brow raise symmetric, tongue midline Reflexes: Deep tendon reflexes were symmetrical and graded 2/5. Plantar responses were flexor. Sensory: slight hypersensitive with vibration on right. cool and light touch intact Coordination: Romberg absent, slight but adjusts easily with eyes closed Gait/Stance: Posture normal. Gait normal: with steady with steps, base, turning, tandem gait. Motor: Negative for pronator drift of out stretched arms with eyes closed. Strength: biceps triceps hand boiler attendant intrinsics 5/5 bilaterally, hip flex patellar, plantar flex ext 5/5 bilaterally Laboratory Results Past 24 Hours: Test 11/09/17 07:02 Triglycerides Level 140 mg/dl (0-150) Cholesterol Level 110 mg/dl (0-200) HDL Cholesterol 48 mg/dl LDL Cholesterol, Calculated 34 mg/dl VLDL Cholesterol, Calculated 28 mg/dl Cholesterol/HDL Ratio 2.3 Imaging TTE- There is mild concentric left ventricular hypertrophy. There is a small wall motion abnormality involving the base posterior, and base inferior garcia with hypokinesis of the segments. Mild aortic regurgitation. The aortic root is severely enlarged, 5.0 cm. The ascending aorta is moderately enlarged, 4.5 cm. Grade I diastolic dysfunction, (abnormal relaxation pattern). no ASD Carotid doppler- No hemodynamically significant stenosis or significant atherosclerotic plaquing. Normal antegrade vertebral flow bilaterally. CXR- Negative chest. CT head- : There is no hemorrhage, mass effect, or evidence of acute territorial ischemia by CT criteria. MRI brain with and without- Subacute infarct right occipital lobe. Atrophy. Moderate chronic small vessel change Impression 77 year old with extensive coronary history subacute right occipital lobe ischemia Plan 1. TTE with no ASD 2. MRI - right occipital lobe ischemia 3. carotid doppler- no significant stenosis 4. optimize HTN, DL LDL<70 5. ophthalmology exam as outpatient to clear for driving 6. continue aspirin 81 mg and add plavix 75 mg x 3 months 7. follow up scheduled with Dr Poole as outpatient for heart monitor to r/o irregular heart beat 8. PT/OT/speech-appears to be no needs at this time 9. CTA head and neck 10. bubble study should be complete is not done neurology 2-[address] Eugenia Matos, Eugenia Schumacher PAC schedule I have seen and discussed above patient with Dr Eugenia Matos, neurology Pt seen and examined, no field but at present, query mild clumsiness of L hand. Rec CTA head neck r/o vb stenosis and cardionet as outpt to r/o afib. Asa and Plavix at present, assess and tx risk factors, echo with bubble.
[2017-11-09] MEDS ORDERED: OPTIRAY 320 IV PRN (16:30)
--- NOTE | 2017-11-09 16:54 | DIAGNOSTIC IMAGING REPORT ---
ANGIOGRAPHY HEAD COMBO HISTORY: Mental status change infarct TECHNIQUE: Multiaxial CT images of the head were performed both before and after the intravenous administration of contrast to evaluate the major cerebral vessels. Maximum intensity projection images were also obtained. A dose lowering technique was utilized adhering to the principles of ALARA. COMPARISON: 11/07/2017. MRI brain 11/07/2017 FINDINGS: Subacute right occipital infarct. No acute intracranial hemorrhagic component. Visualized intracranial internal carotid arteries, distal vertebral arteries, and basilar artery are widely patent. There is no significant stenosis, occlusion, or aneurysm seen within the bilateral ACAs, MCAs, or operations administrative assistant. IMPRESSION: No significant stenosis, occlusion, or aneurysm within the [place]. Subacute infarct right occipital lobe. No evidence for acute intracranial hemorrhage. The above report was generated using voice recognition software. It may contain grammatical, syntax or spelling errors. Electronically signed by: Perico Smith M.D. 11/09/2017 4:53 PM Dictated Date/Time: 11/09/2017 4:50 PM
--- NOTE | 2017-11-09 16:58 | DIAGNOSTIC IMAGING REPORT ---
CT ANGIOGRAM OF THE NECK CLINICAL HISTORY: Right occipital infarct. COMPARISON STUDY: Carotid artery ultrasound dated 11/09/2017. CT scan of the cervical spine dated 11/09/2007. TECHNIQUE: Following the IV administration of 94 of Optiray 320, CT angiogram of the neck was performed from the aortic arch to the skull base. Images are reviewed in the axial, sagittal, and coronal planes. 3-D MIPS images are created and assessed. IV contrast was administered without complication. All measurements were calculated based on NASCET criteria. A dose lowering technique was utilized adhering to the principles of ALARA. FINDINGS: Thoracic aorta: Visualized portions of the thoracic aorta are normal in caliber. The aortic arch demonstrates standard 3-vessel anatomy. Right carotid arterial system: The right common carotid artery is widely patent, as are the right internal and external carotid arteries. Minimal atherosclerotic calcification is seen in the carotid bulb. Left carotid arterial system: The left common carotid artery is widely patent, as are the left internal and external carotid arteries. Mild atherosclerotic calcification is seen in the carotid bulb. Vertebral arteries: Patent bilaterally and codominant. Intracranial vasculature: The partially visualized intracranial vessels at the skull base are normal as imaged. Subclavian arteries: Widely patent bilaterally. Jugular veins: Nonopacified. Brain parenchyma: The visualized brain parenchyma the skull base is within normal limits. Lung apices: Partially visualized upper lobe lung parenchyma appears clear. Soft tissues: The visualized pharyngeal soft tissues are normal in appearance noting angiographic phase technique. The oropharyngeal airway appears widely patent. The salivary glands are normal in appearance. A 9 mm low-attenuation nodule is seen in the left thyroid lobe. No cervical lymphadenopathy is seen. Skeletal structures: The skeletal structures are osteopenic. The cervical spine appears intact noting spondylotic change. The visualized calvarium at the skull base is normal in appearance. IMPRESSION: Unremarkable CT angiogram of the neck. Electronically signed by: Tex Serrano M.D. 11/09/2017 4:57 PM Dictated Date/Time: 11/09/2017 4:50 PM
[2017-11-09] MEDS: AMLODIPINE BESYLATE 5 MG TAB PO SCH (21:13)
[2017-11-09] MEDS: FINASTERIDE 5 MG TAB PO SCH (21:13)
[2017-11-09] MEDS: ROSUVASTATIN CALCIUM 20 MG TAB PO SCH (21:13)
[2017-11-09] MEDS: ACETAMINOPHEN 325 MG TAB PO PRN (21:14)
--- NOTE | 2017-11-09 21:16 | Progress Note ---
Medicine Progress Note Date & Time of Visit: Nov 09, 2017 at 11:00 . Subjective CC: Follow-up visit for stroke, syncope and other problems. HPI: Feels better. No new visual changes. No further episodes of syncope or near syncope. No chest pain, palpitations, dyspnea. No headaches. ROS: General- no fever, no chills Resp- no cough; no shortness of breath Cardiac-no chest pain, palpitations GI- no nausea, no vomiting, no diarrhea, no constipation - no dysuria, no difficulty voiding . Objective Last 8 Hrs Date Time Temp Pulse Resp B/P (MAP) Pulse Ox O2 Delivery O2 Flow Rate FiO2 11/09/17 20:00 Room Air 11/09/17 19:32 36.5 60 20 162/92 (115) 95 Room Air 11/09/17 16:07 36.6 56 20 170/77 (108) 94 Room Air 11/09/17 16:00 94 Room Air Physical Exam: General- no distress Lungs- clear to auscultation; no respiratory distress Cardiovascular- RRR; no murmur or gallop appreciated; no JVD; no pretibial edema Abdomen- + bowel sounds, soft, nontender Extremities- no cyanosis; no calf tenderness Neuro- alert, oriented; PERRL, EOMI; visual avitia grossly intact; no facial palsy; no dysarthria; no aphasia; motor strength upper and lower extremities 5/5 Skin- warm & dry . Laboratory Results: Last 24 Hours Test 11/09/17 07:02 Triglycerides Level 140 mg/dl Cholesterol Level 110 mg/dl HDL Cholesterol 48 mg/dl LDL Cholesterol, Calculated 34 mg/dl VLDL Cholesterol, Calculated 28 mg/dl Cholesterol/HDL Ratio 2.3 Assessment & Plan RIGHT OCCIPITAL NONHEMORRHAGIC STROKE Patient describes visual changes the day prior to admission with left homonymous superior quadrantanopia. Field cut has improved, but patient still describes distorted vision. Head CT negative. MRI right occipital nonhemorrhagic infarct. Clopidogrel added to aspirin. LDL-c = 34. 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 SYNCOPE Episode of syncope while sitting on the toilet moving his bowels. Syncope probably combination of vasovagal episode and dehydration. No further symptoms. CORONARY ARTERY DISEASE No anginal symptoms. Continue aspirin, metoprolol, statin. HYPERTENSION Best to allow relatively higher blood pressures in the short-term in light of acute ischemic stroke. Losartan on hold. Continue metoprolol. ANEURYSM THORACIC AORTA Aortic root measured 5.0 cm and ascending aorta 4.5 cm by echo. Measurements are comparable to CT performed 09/07/15. Ongoing management of hypertension and dyslipidemia. Follow. DYSLIPIDEMIA Continue rosuvastatin. VTE PROPHYLAXIS SQ enoxaparin. Ambulate. DISPOSITION Expected discharge to home. Internal Medicine follow-up with Dr. Bermudez. Cardiology follow-up with Dr. Poole. . Current Inpatient Medications: Current Inpatient Medications Medications (Trade) Dose Ordered Sig/Francesco Route Start Time Stop Time Status Last Admin Dose Admin Enoxaparin Sodium (Lovenox Inj) 40 mg Q24H SC 11/07/17 09:00 12/07/17 08:59 11/09/17 07:41 40 MG Acetaminophen (Tylenol Tab) 650 mg Q4H PRN PO 11/07/17 07:30 12/07/17 07:29 11/09/17 21:14 650 MG Nitroglycerin (Nitrostat Tab) 0.4 mg UD PRN SL 11/07/17 07:30 12/07/17 07:29 Tramadol HCl (Ultram Tab) 25 mg Q6H PRN PO 11/07/17 07:30 12/07/17 07:29 Morphine Sulfate (MoRPHine SULFATE INJ) 4 mg Q3H PRN IV 11/07/17 07:30 11/21/17 07:29 Amlodipine Besylate (Norvasc Tab) 5 mg QPM PO 11/07/17 21:00 12/07/17 20:59 11/09/17 21:13 5 MG Cetirizine HCl (zyrTEC TAB) 10 mg QAM PO 11/07/17 09:00 12/07/17 08:59 11/09/17 07:40 10 MG Finasteride (Proscar Tab) 5 mg QPM PO 11/07/17 21:00 12/07/17 20:59 11/09/17 21:13 5 MG Folic Acid (Folvite Tab) 1 mg QAM PO 11/07/17 09:00 12/07/17 08:59 11/09/17 07:40 1 MG Lorazepam (Ativan Tab) 1 mg BID PRN PO 11/07/17 07:30 12/07/17 07:29 Pantoprazole Sodium (Protonix Tab) 40 mg QAM PO 11/07/17 09:00 12/07/17 08:59 11/09/17 07:40 40 MG Rosuvastatin Calcium (Crestor Tab) 20 mg QPM PO 11/07/17 21:00 12/07/17 20:59 11/09/17 21:13 20 MG Miscellaneous Information (Order Awaiting Action) 1 ea QS N/A 11/07/17 16:00 12/07/17 15:59 Prochlorperazine Edisylate 5 mg/ Syringe 5 ml @ 5 mls/min Q6H PRN IV 11/07/17 07:30 12/07/17 07:29 Atropine Sulfate (Atropine Sulfate 1MG/Ml Inj) 0.5 mg UD PRN IV 11/07/17 07:30 12/07/17 07:29 Miscellaneous (Iv Fluids Completed) 1 ea PRN PRN N/A 11/07/17 08:15 11/07/18 08:14 Metoprolol Succinate (Toprol Xl Tab) 25 mg QAM PO 11/09/17 09:00 12/09/17 08:59 11/09/17 07:43 25 MG Aspirin (Ecotrin Tab) 81 mg QAM PO 11/09/17 09:00 12/09/17 08:59 11/09/17 07:39 81 MG Clopidogrel Bisulfate (plAVix TAB) 75 mg QAM PO 11/09/17 09:00 12/09/17 08:59 11/09/17 07:40 75 MG Miscellaneous Information (Pharmacist Discharge Med Rec Consult) 1 ea UD PRN N/A 11/08/17 21:30 12/08/17 21:29 Ioversol (Optiray 320) 100 ml UD PRN IV 11/09/17 16:30 11/13/17 16:29
[2017-11-10 03:33] VITALS: BP 113/69; PULSE 60; TEMP 36.6; O2SAT 94
[2017-11-10 07:04] LABS: CREATININE 0.94 mg/dl (0.60-1.40)
[2017-11-10] MEDS: ASPIRIN 81 MG ECTAB PO SCH (07:45)
[2017-11-10] MEDS: METOPROLOL SUCC 25MG EXT REL TAB PO SCH (07:45)
[2017-11-10] MEDS: CETIRIZINE HCL 10 MG TAB PO SCH (07:45)
[2017-11-10] MEDS: CLOPIDOGREL BISULFATE 75 MG TAB PO SCH (07:45)
[2017-11-10] MEDS: PANTOprazole SOD 40 MG TAB PO SCH (07:45)
[2017-11-10] MEDS: ENOXAPARIN 40 MG/0.4 ML SYR SC SCH (07:46)
[2017-11-10 08:07] VITALS: BP 144/89; PULSE 69; O2SAT 93
--- NOTE | 2017-11-10 11:51 | PROGRESS NOTE ---
DATE: 11/10/2017 I am seeing Mr. 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 A CTA of the head and neck show no significant stenosis in the [place] or in the cervical spine. He has not had any recurrent events, although occasionally will see some flashing in his left visual field. No significant dysrhythmia has been noted. His echo showed a dilated aortic root and a bubble study was not performed. PHYSICAL EXAMINATION: NEUROLOGIC: He is awake and alert. He has no field cut. No visual extinction. Face is symmetric. Strength is symmetric. There is no drift and gait is unremarkable. IMPRESSION: Right posterior cerebral artery infarct in the setting of no significant vascular stenosis. It is very suggestive of an embolic source, although we did not find a clot, left atrial enlargement. I have ordered the addition of a bubble study. The patient and I have discussed empiric anticoagulation with Coumadin. The patient previously took Coumadin after multiple MRIs; I am not entirely sure of the indication, but the patient did eventually go off of it because of a large hematoma in the right upper extremity requiring hospitalization, but not evacuation. The patient elects to see Dr. 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 I think this is reasonable. The patient certainly will need outpatient protracted monitoring to rule out atrial dysrhythmia. I think the risk of the recurrent stroke in the short term while elevated compared to baseline is relatively low and I have no objection to the patient being discharged today on Plavix and aspirin. ZENIA
[2017-11-10 12:29] VITALS: BP 129/68; PULSE 74; TEMP 36.6; O2SAT 96
--- NOTE | 2017-11-10 13:11 | Progress Note ---
Medicine Progress Note Date & Time of Visit: Nov 10, 2017 at 13:11 . Subjective CC: Follow-up visit for stroke, syncope and other problems. HPI: Feels better. Vision field cut resolved. No further episodes of syncope or near syncope. No chest pain, palpitations, dyspnea. No headaches. Ambulating. Would like to go home. ROS: General- no fever, no chills Resp- no cough; no shortness of breath Cardiac- no chest pain, palpitations GI- no nausea, no vomiting, no diarrhea, no constipation - no dysuria, no difficulty voiding . Objective Last 8 Hrs Date Time Temp Pulse Resp B/P (MAP) Pulse Ox O2 Delivery O2 Flow Rate FiO2 11/10/17 12:29 36.6 74 18 129/68 (88) 96 11/10/17 12:00 Room Air 11/10/17 08:07 69 18 144/89 (107) 93 11/10/17 08:00 Room Air Physical Exam: General- no distress Lungs- clear to auscultation; no respiratory distress Cardiovascular- RRR; no murmur or gallop appreciated; no JVD; no pretibial edema Abdomen- + bowel sounds, soft, nontender Extremities- no cyanosis; no calf tenderness Neuro- alert, oriented; PERRL, EOMI; visual avitia grossly intact; no facial palsy; no dysarthria; no aphasia; motor strength upper and lower extremities 5/5 Skin- warm & dry . Laboratory Results: Last 24 Hours Test 11/10/17 06:03 Creatinine 0.94 mg/dl Est Creatinine Clear Calc Drug Dose 83.8 ml/min Estimated GFR () 91.6 Estimated GFR (Non- 79.0 Assessment & Plan RIGHT OCCIPITAL NONHEMORRHAGIC STROKE Patient describes visual changes the day prior to admission with left homonymous superior quadrantanopia. Field cut has improved, but patient still described distorted vision. Head CT negative. MRI right occipital nonhemorrhagic infarct. Carotid duplex did not show any significant stenoses. EKG- NSR. Echo- no thrombi. PT & OT evals requested; no deficits requiring therapies. Neurology consulted. CTA head & neck did not show any stenoses, thromboses, aneurysms. Echo with agitated saline contrast- no interatrial shunt. LDL-c = 34. Rosuvastatin continued. Clopidogrel added to aspirin. Continue aspirin / clopidogrel combination for at least 3 months, then consider antiplatelet monotherapy with clopidogrel. Check outpatient cardiac event monitor. Will need to anticoagulate if event monitor shows any evidence of atrial fib / flutter. Patient to arrange for outpatient optometry appt to assess his visual avitia and driving safety. SYNCOPE Episode of syncope while sitting on the toilet moving his bowels. Syncope probably combination of vasovagal episode and dehydration. No further symptoms. CORONARY ARTERY DISEASE No anginal symptoms. Continue aspirin, metoprolol, statin. HYPERTENSION Best to allow relatively higher blood pressures in the short-term in light of acute ischemic stroke. Losartan held for 24 hours. Discharge on losartan 50 mg daily for 1 week, then resume 50 mg BID. Continue metoprolol. ANEURYSM THORACIC AORTA Aortic root measured 5.0 cm and ascending aorta 4.5 cm by echo. Measurements are comparable to CT performed 09/07/15. Ongoing management of hypertension and dyslipidemia. Follow. DYSLIPIDEMIA LDL-c = 34. Continue rosuvastatin. VTE PROPHYLAXIS SQ enoxaparin. Ambulate. DISPOSITION Discharge to home. Internal Medicine follow-up with Dr. Bermudez. Cardiology follow-up with Dr. Poole. . Current Inpatient Medications: Current Inpatient Medications Medications (Trade) Dose Ordered Sig/Francesco Route Start Time Stop Time Status Last Admin Dose Admin Enoxaparin Sodium (Lovenox Inj) 40 mg Q24H SC 11/07/17 09:00 12/07/17 08:59 11/10/17 07:46 40 MG Acetaminophen (Tylenol Tab) 650 mg Q4H PRN PO 11/07/17 07:30 12/07/17 07:29 11/09/17 21:14 650 MG Nitroglycerin (Nitrostat Tab) 0.4 mg UD PRN SL 11/07/17 07:30 12/07/17 07:29 Tramadol HCl (Ultram Tab) 25 mg Q6H PRN PO 11/07/17 07:30 12/07/17 07:29 Morphine Sulfate (MoRPHine SULFATE INJ) 4 mg Q3H PRN IV 11/07/17 07:30 11/21/17 07:29 Amlodipine Besylate (Norvasc Tab) 5 mg QPM PO 11/07/17 21:00 12/07/17 20:59 11/09/17 21:13 5 MG Cetirizine HCl (zyrTEC TAB) 10 mg QAM PO 11/07/17 09:00 12/07/17 08:59 11/10/17 07:45 10 MG Finasteride (Proscar Tab) 5 mg QPM PO 11/07/17 21:00 12/07/17 20:59 11/09/17 21:13 5 MG Folic Acid (Folvite Tab) 1 mg QAM PO 11/07/17 09:00 12/07/17 08:59 11/10/17 07:45 1 MG Lorazepam (Ativan Tab) 1 mg BID PRN PO 11/07/17 07:30 12/07/17 07:29 Pantoprazole Sodium (Protonix Tab) 40 mg QAM PO 11/07/17 09:00 12/07/17 08:59 11/10/17 07:45 40 MG Rosuvastatin Calcium (Crestor Tab) 20 mg QPM PO 11/07/17 21:00 12/07/17 20:59 11/09/17 21:13 20 MG Miscellaneous Information (Order Awaiting Action) 1 ea QS N/A 11/07/17 16:00 12/07/17 15:59 Prochlorperazine Edisylate 5 mg/ Syringe 5 ml @ 5 mls/min Q6H PRN IV 11/07/17 07:30 12/07/17 07:29 Atropine Sulfate (Atropine Sulfate 1MG/Ml Inj) 0.5 mg UD PRN IV 11/07/17 07:30 12/07/17 07:29 Miscellaneous (Iv Fluids Completed) 1 ea PRN PRN N/A 11/07/17 08:15 11/07/18 08:14 Metoprolol Succinate (Toprol Xl Tab) 25 mg QAM PO 11/09/17 09:00 12/09/17 08:59 11/10/17 07:45 25 MG Aspirin (Ecotrin Tab) 81 mg QAM PO 11/09/17 09:00 12/09/17 08:59 11/10/17 07:45 81 MG Clopidogrel Bisulfate (plAVix TAB) 75 mg QAM PO 11/09/17 09:00 12/09/17 08:59 11/10/17 07:45 75 MG Miscellaneous Information (Pharmacist Discharge Med Rec Consult) 1 ea UD PRN N/A 11/08/17 21:30 12/08/17 21:29 Ioversol (Optiray 320) 100 ml UD PRN IV 11/09/17 16:30 11/13/17 16:29
[2017-11-10] MEDS ORDERED: CZR50 PO (13:17)
[2017-11-10] MEDS ORDERED: PLV75 PO ×2 (13:17→13:18)
--- NOTE | 2017-11-10 13:34 | Discharge Instructions ---
Discharge Instructions Date of Service Nov 10, 2017. Admission Reason for Admission: passed out, visual changes . Discharge Discharge Diagnosis / Problem: stroke Discharge Goals Goal(s): Improve function, Improve disease control Activity Recommendations Activity Limitations: as noted below Lifting Limitations: gradually increase as tolerated Exercise/Sports Limitations: gradually increase as tolerated Shower/Bathe: no limitations Driving or Machine Use: no driving until your gas attendant says "OK" . Instructions / Follow-Up Instructions / Follow-Up APPOINTMENTS: INTERNAL MEDICINE 11/12/2017 11:00 AM Anurag Mora MD (covering for Dr. Bermudez) CARDIOLOGY 11/22/2017 9:30 AM Jagdeep Poole MD OTHER INSTRUCTIONS: You suffered a stroke that affected your vision, but you seem to be recovering. Continue aspirin once a day. Start clopidogrel (Plavix) 75 mg daily, tentatively for at least 3 months. Best to let your blood pressure run a bit high for the next week. Continue metoprolol (Toprol) once a day as before. Take losartan (Cozaar) once daily for 7 days, then resume taking it twice a day. Episode of loosing consciousness may have been related to straining to move your bowels and/or dehydration. Drink plenty of fluids. Don't strain to move your bowels. Consider taking fiber supplement like Metamucil to keep your bowel habits regular. Please ask Dr. Mora or Dr. Poole to schedule the following tests for you: echocardiogram with bubble study heart monitor (ZIO patch) Seek medical attention if you have: * temperature above 101 * chest pain or trouble breathing * abdominal pain, nausea, vomiting * diarrhea, dark stools or bloody stools * severe headache, visual changes, trouble speaking, trouble swallowing, weakness in arms or legs, trouble walking * any unanswered questions or concerns Call 911 if symptoms are severe. Call if you have any questions or problems. My cell # is [phone]. You can also reach a [facility] hospitalist on duty at [facility] 24 hours a day by calling [phone]. Please take good care of yourself. Waqar Coppola Risk Factors for Stroke: You can reduce your chances of stroke by working with your medical provider to adopt a healthy lifestyle. Some specific ways to lower your chance of stroke are: * If you are a smoker, now is the time to stop smoking cigarettes * If you are diabetic, improve the control of your blood sugars * Avoid excessive amounts of alcohol * Control high blood pressure * Lose weight if you are overweight * Be sure to lead an active lifestyle * Eat a healthy diet low in salt, cholesterol and fat You should know about other risk factors for stroke that you are unable to control. These include: * Age 55 years or older * Male gender * Certain racial groups: , or / * Family History of Stroke, Mini stroke or Heart Attack * Sickle Cell Disease Follow Up: It is important for you to keep your follow up appointments with your medical provider. Current Hospital Diet Patient's current hospital diet: AHA Diet (Heart Healthy) Discharge Diet Recommended Diet: AHA Diet (Heart Healthy) Procedures Procedures Performed: CT brain- no apparent stroke MRI brain- stroke in back of brain ultrasound carotid arteries- no blockage in carotid arteries CT angiogram- no blockage in arteries echocardiogram- enlargement of aorta, stable Pending Studies Studies pending at discharge: no Laboratory Results Hemoglobin A1c Test 11/07/17 04:29 Range/Units Estimated Average Glucose 128 mg/dl Hemoglobin A1c 6.1 H 4.5-5.6 % Lipid Panel Test 11/09/17 07:02 Range/Units Triglycerides Level 140 0-150 mg/dl Cholesterol Level 110 0-200 mg/dl HDL Cholesterol 48 mg/dl Cholesterol/HDL Ratio 2.3 LDL Cholesterol, Calculated 34 mg/dl Medical Emergencies . Who to Call and When: Medical Emergencies: Call 911 immediately if you experience any of the following warning signs and symptoms of Stroke: * Sudden numbness or weakness of the face, arm or leg, especially on one side of the body * Sudden confusion, trouble speaking or understanding * Sudden trouble seeing in one or both eyes * Sudden trouble walking, dizziness, loss of balance or coordination * Sudden severe headache with no cause Do not delay calling 911 if you experience any warning signs or symptoms of a stroke. Delay in seeking medical attention may affect what treatments can be given to you. . Non-Emergent Contact Non-Emergency issues call your: Primary Care Provider, Car Dropper . . "Provider Documentation" section prepared by Waqar Coppola. . Stroke Core Measures Reason no t-PA for Stroke: Treatment not indicated Reason no antithrom by day 2: Treatment provided - N/A Reason no antithrom at D/C: Treatment provided - N/A Reason no statin at D/C: Treatment provided - N/A Reason no anticoag w/a fib: Treatment not indicated
[2017-11-10 13:37] VITALS: BP 129/68; PULSE 74; TEMP 36.6; O2SAT 96
--- NOTE | 2017-11-10 16:11 | Pharmacy Progress Note ---
Pharmacist Stroke Counseling Date of Service Nov 10, 2017. Scope Pharmacy has been consulted to provide medication discharge counseling for this patient admitted with ischemic stroke/hemorrhagic stroke/ transient ischemic attack as per the Pharmacist Discharge Counseling for Stroke Patients Protocol. Medications on Discharge New Medications: Clopidogrel Bisulfate (Clopidogrel) 75 Mg Tab 75 MG PO DAILY, #30 TAB 2 Refills Continued Medications: Amlodipine (Norvasc) 5 Mg Tab 5 MG PO QPM, 0 Refills Aspirin Enteric Coated (Ecotrin Or Generic) 325 Mg Ectab 325 MG PO QAM, TAB Azelastine Hcl (Astelin Nasal [place]) 200 Sprays/30 Ml [place] 200 SPRAYS NA PRN, 0 Refills Cetirizine (Zyrtec) 10 Mg Tab 10 MG PO QAM, 0 Refills Finasteride (Proscar) 5 Mg Tab 5 MG PO QPM, 0 Refills Folic Acid (Folic Acid) 1 Mg Tab 1 MG PO QAM Lorazepam (Ativan) 1 Mg Tab 1 MG PO BID PRN for Anxiety/Agitation, 0 Refills Losartan Potassium (Losartan Potassium) 50 Mg Tab 50 MG PO BID Adjustment 11/10/17: take 1 pill daily for 7 days, then resume 1 pill twice a day Metoprolol Succinate (Toprol Xl) 25 Mg Tabcr 25 MG PO QAM, #30 Nitroglycerin (Nitrostat) 0.4 Mg Tab 0.4 MG UT PRN Pantoprazole (Protonix) 40 Mg Tab 40 MG PO QAM Rosuvastatin Calcium (Crestor) 20 Mg Tab 20 MG PO QPM, TAB NOTE: Aspirin dose is actually 81mg daily, NOT 325mg as listed above. New order obtained from Dr. Coppola after discharge orders were finalized. Action The above medications, specifically ones for stroke treatment/prophylaxis, have been reviewed in detail with the patient and/or patient bank representative(s) prior to discharge. This includes indication, common adverse reactions, drug interactions, and medication administration. Medication counseling has been employed using the teach-back method to ensure understanding. Outcome The patient and/or patient bank representative(s) have demonstrated understanding of the medications. Please note, they are aware that the pharmacist will call them within 72 hours post-discharge to confirm that the appropriate medications are being taken and answer any further medication related questions the patient might have at that time. Contact information Individual to be contacted: Arnulfo Morfin (patient) Relationship to patient (if applicable): Self Phone number: [phone] Best time to call: After Sunday afternoon (has appointment in the AM) Additional comments: - Discussed discharge medication list/orders with Dr. Coppola prior to discharge counseling today. He had already finalized the orders and wanted to continue aspirin at the home dose of 325mg daily. Patient was receiving 81mg daily during admission. He has history of large hematoma on warfarin. Discussed lack of incr' efficacy of aspirin 325mg vs. 81mg and incr' risk for bleeding/ bruising. Furthermore, patient now on dual anti-platelet therapy with Plavix and seems to be a higher risk for bleeding with his prior experience on warfarin. Dr. Coppola was in agreement and verbal order given to advise patient to decr' aspirin to [address] Coppola was going to update his documentation/records post-discharge. - Met with patient and prior to discharge today. Advised him of the above. He actually already has aspirin 81mg tablets at home (his takes ASA 81mg). He understands need to decrease dose to decr' bleeding risk. He is aware to monitor for s/sx bleeding/bruising. He reports he was actually on Plavix in the past. - He will discuss with Cardiology, Dr. Poole, need for anticoagulation as stroke possibly embolic. He was on warfarin in the past for unknown indication and D/C'd due to large hematoma. Aware need for Cardiology, Neurology, and PCP f/u. - There was some confusion with his Losartan. Unclear if miscommunication occurred. Patient thought he was supposed to take losartan 50mg BID *today* and then start 50mg once daily *tomorrow* x 7 days. Of note, discharge med list had handwritten instructions with arrow that patient should take losartan "today". Dr. Coppola intended for him to take 50mg once daily x 7 days, then resume his 50mg BID dosing thereafter. Want adequate perfusion, do not want BP too low. Advised home BP monitoring. Clarified dosing. - He reports taking multiple doses of Advil every day for back pain. Advised incr' risk for bleeding with chronic daily NSAID use, especially on DAPT. Advised to discuss with PCP alternatives to pain management. He will do so. - He reports using a weekly pillbox. Seems to be knowledgeable about medications and reports good adherence. Thank you for allowing pharmacy to be involved in the care of this patient. Please call [phone] or [phone] with any additional questions
--- NOTE | 2017-11-11 09:40 | ECHOCARDIOGRAM REPORT ---
*NOTICE TO RECEIVING [employer] This information is strictly Confidential and protected under [place] law. [place] law prohibits you from making any further disclosure of this information unless further disclosure is expressly permitted by the written consent of the person to whom it pertains or is authorized by law. A general authorization for the release of medical or other information is not sufficient for this purpose. Hospital accepts no responsibility if the information is made available to any other person, INCLUDING THE PATIENT. Interpretation Summary * Name: JUANY MALONE Study Date: 11/10/2017 12:43 PM BP: 129/68 mmHg * Patient Location: C.2T\[id number]\S238\S\2 HR: 60 * : 1940 (M/d/yyyy) Gender: Male Height: 70 in * Age: 77 yrs Ethnicity: [place] Weight: 232 lb * Ordering Physician: Eugenia Matos * Referring Physician: Self, Referred * Performed By: Maru Palma RDCS * * Reason For Study: FUP BUBBLE STUDY * BSA: 2.2 m2 * -- Conclusions -- * Injection of contrast documented no interatrial shunt. * Unlikely to have a PFO. Procedure Details * A saline contrast injection was performed to assess for cardiac shunting. * The injection was performed through an intravenous line in the left arm. * The attending nurse who injected the saline contrast was TYRONE LAWRENCE. * A total of 20 cc of agitated saline was given. Atria * Injection of contrast documented no interatrial shunt.
--- NOTE | 2017-11-12 01:46 | Discharge Summary ---
Discharge Summary Date of Service Nov 12, 2017. Discharge Summary Admission Date: Nov 09, 2017 at 05:45 Discharge Date: Nov 10, 2017 Discharge Disposition: Home Principal Diagnosis: right occipital ischemic stroke . Secondary Diagnoses/Problems: Chronic and Resolved Medical Problems: (1) BPH (benign prostatic hyperplasia) Status: Chronic (2) Coronary artery disease Status: Chronic (3) Dyslipidemia Status: Chronic (4) History of pulmonary embolism Status: Chronic (5) Hypertension Status: Chronic (6) Migraine headache Status: Chronic (7) Sleep apnea Status: Chronic (8) Thoracic aortic aneurysm Status: Chronic Surgical Problems: (1) Status post lumbar laminectomy Status: Chronic (2) Status post recent transurethral resection of prostate Status: Chronic . Procedures: CT head MRI brain carotid duplex echo CTA head CTA neck echo with contrast . Consultations: Neurology Pending Studies/Follow-Up: Please arrange for outpatient cardiac event monitor. . Medication Reconciliation New Medications: Clopidogrel Bisulfate (Clopidogrel) 75 Mg Tab 75 MG PO DAILY, #30 TAB 2 Refills Continued Medications: Amlodipine (Norvasc) 5 Mg Tab 5 MG PO QPM, 0 Refills Aspirin Enteric Coated (Ecotrin Or Generic) 325 Mg Ectab 325 MG PO QAM, TAB Azelastine Hcl (Astelin Nasal [place]) 200 Sprays/30 Ml [place] 200 SPRAYS NA PRN, 0 Refills Cetirizine (Zyrtec) 10 Mg Tab 10 MG PO QAM, 0 Refills Finasteride (Proscar) 5 Mg Tab 5 MG PO QPM, 0 Refills Folic Acid (Folic Acid) 1 Mg Tab 1 MG PO QAM Lorazepam (Ativan) 1 Mg Tab 1 MG PO BID PRN for Anxiety/Agitation, 0 Refills Losartan Potassium (Losartan Potassium) 50 Mg Tab 50 MG PO BID Adjustment 11/10/17: take 1 pill daily for 7 days, then resume 1 pill twice a day Metoprolol Succinate (Toprol Xl) 25 Mg Tabcr 25 MG PO QAM, #30 Nitroglycerin (Nitrostat) 0.4 Mg Tab 0.4 MG UT PRN Pantoprazole (Protonix) 40 Mg Tab 40 MG PO QAM Rosuvastatin Calcium (Crestor) 20 Mg Tab 20 MG PO QPM, TAB Admission Information HPI (per Admitting provider): History obtained from the patient, , and records. Medical history significant for CAD intervention, hypertension, hyperlipidemia, PVD (thoracic aortic aneurysm), hx PE status post Coumadin, sleep apnea, BPH, chronic back pain. Rcent confinement last in November 2011 under Orthopedic service for back surgery. Last few days, the patient not feeling well,. Two days ago, the patient had blurred vision, transient, bilateral. Yesterday abdominal cramping, loose stools, nonbloody. This morning had the urge to go to the bathroom, was feeling lightheaded as he tried to get up from the commode. Subsequently passed out. Patient was out for about 10 minutes on the commode as per . Patient denies chest pain or shortness of breath. . Physical Exam (per Admitting): VITAL SIGNS: Blood pressure was noted to be 124/72, pulse rate 52, later 49, RR 16, temperature 36.6, sats 94 on room air. Orthostatic vitals were negative. GENERAL: Obese. Comfortable, no respiratory distress. SKIN: Warm. Normal color. HEENT: Alopecia. [place] palpebral conjunctivae. No ptosis. rhinophyma. Dry buccal mucosa. NECK: Short neck, supple. CHEST: Decreased effort. No tenderness. HEART: Bradycardic. No murmur. ABDOMEN: Some distention, no tender. EXTREMITIES: No edema, no bruising noted, no tenderness. NEUROLOGIC EXAMINATION: Coherent. No gross focality. . Hospital Course RIGHT OCCIPITAL NONHEMORRHAGIC STROKE Patient describes visual changes the day prior to admission with left homonymous superior quadrantanopia. Field cut has improved, but patient still described distorted vision. Head CT negative. MRI right occipital nonhemorrhagic infarct. Carotid duplex did not show any significant stenoses. EKG- NSR. Echo- no thrombi. PT & OT evals requested; no deficits requiring therapies. Neurology consulted. CTA head & neck did not show any stenoses, thromboses, aneurysms. Echo with agitated saline contrast- no interatrial shunt. LDL-c = 34. Rosuvastatin continued. Clopidogrel added to aspirin. Continue aspirin / clopidogrel combination for at least 3 months, then consider antiplatelet monotherapy with clopidogrel. Check outpatient cardiac event monitor. Will need to anticoagulate if event monitor shows any evidence of atrial fib / flutter. Patient to arrange for outpatient optometry appt to assess his visual avitia and driving safety. SYNCOPE Episode of syncope while sitting on the toilet moving his bowels. Syncope probably combination of vasovagal episode and dehydration. No further symptoms. CORONARY ARTERY DISEASE No anginal symptoms. Continue aspirin, metoprolol, statin. HYPERTENSION Best to allow relatively higher blood pressures in the short-term in light of acute ischemic stroke. Losartan held for 24 hours. Discharge on losartan 50 mg daily for 1 week, then resume 50 mg BID. Continue metoprolol. ANEURYSM THORACIC AORTA Aortic root measured 5.0 cm and ascending aorta 4.5 cm by echo. Measurements are comparable to CT performed 09/07/15. Ongoing management of hypertension and dyslipidemia. Follow. DYSLIPIDEMIA LDL-c = 34. Continue rosuvastatin. VTE PROPHYLAXIS SQ enoxaparin. Ambulate. DISPOSITION Discharge to home. Internal Medicine follow-up with Dr. Bermudez. Cardiology follow-up with Dr. Poole. . Total time spent on discharge = 40 min. This includes examination of the patient, discharge planning, medication reconciliation, and communication with other providers. . Discharge Instructions Date of Service Nov 10, 2017. Admission Reason for Admission: passed out, visual changes . Discharge Discharge Diagnosis / Problem: stroke Discharge Goals Goal(s): Improve function, Improve disease control Activity Recommendations Activity Limitations: as noted below Lifting Limitations: gradually increase as tolerated Exercise/Sports Limitations: gradually increase as tolerated Shower/Bathe: no limitations Driving or Machine Use: no driving until your medical claims assistant says "OK" . Instructions / Follow-Up Instructions / Follow-Up APPOINTMENTS: INTERNAL MEDICINE 11/12/2017 11:00 AM Anurag Mora MD (covering for Dr. Bermudez) CARDIOLOGY 11/22/2017 9:30 AM Jagdeep Poole MD OTHER INSTRUCTIONS: You suffered a stroke that affected your vision, but you seem to be recovering. Continue aspirin once a day. Start clopidogrel (Plavix) 75 mg daily, tentatively for at least 3 months. Best to let your blood pressure run a bit high for the next week. Continue metoprolol (Toprol) once a day as before. Take losartan (Cozaar) once daily for 7 days, then resume taking it twice a day. Episode of loosing consciousness may have been related to straining to move your bowels and/or dehydration. Drink plenty of fluids. Don't strain to move your bowels. Consider taking fiber supplement like Metamucil to keep your bowel habits regular. Please ask Dr. Mora or Dr. Poole to schedule the following tests for you: echocardiogram with bubble study heart monitor (ZIO patch) Seek medical attention if you have: * temperature above 101 * chest pain or trouble breathing * abdominal pain, nausea, vomiting * diarrhea, dark stools or bloody stools * severe headache, visual changes, trouble speaking, trouble swallowing, weakness in arms or legs, trouble walking * any unanswered questions or concerns Call 911 if symptoms are severe. Call if you have any questions or problems. My cell # is [phone]. You can also reach a [facility] hospitalist on duty at [facility] 24 hours a day by calling [phone]. Please take good care of yourself. Waqar Coppola Risk Factors for Stroke: You can reduce your chances of stroke by working with your medical provider to adopt a healthy lifestyle. Some specific ways to lower your chance of stroke are: * If you are a smoker, now is the time to stop smoking cigarettes * If you are diabetic, improve the control of your blood sugars * Avoid excessive amounts of alcohol * Control high blood pressure * Lose weight if you are overweight * Be sure to lead an active lifestyle * Eat a healthy diet low in salt, cholesterol and fat You should know about other risk factors for stroke that you are unable to control. These include: * Age 55 years or older * Male gender * Certain racial groups: , or / * Family History of Stroke, Mini stroke or Heart Attack * Sickle Cell Disease Follow Up: It is important for you to keep your follow up appointments with your medical provider. Current Hospital Diet Patient's current hospital diet: AHA Diet (Heart Healthy) Discharge Diet Recommended Diet: AHA Diet (Heart Healthy) Procedures Procedures Performed: CT brain- no apparent stroke MRI brain- stroke in back of brain ultrasound carotid arteries- no blockage in carotid arteries CT angiogram- no blockage in arteries echocardiogram- enlargement of aorta, stable Pending Studies Studies pending at discharge: no Laboratory Results Hemoglobin A1c Test 11/07/17 04:29 Range/Units Estimated Average Glucose 128 mg/dl Hemoglobin A1c 6.1 H 4.5-5.6 % Lipid Panel Test 11/09/17 07:02 Range/Units Triglycerides Level 140 0-150 mg/dl Cholesterol Level 110 0-200 mg/dl HDL Cholesterol 48 mg/dl Cholesterol/HDL Ratio 2.3 LDL Cholesterol, Calculated 34 mg/dl Medical Emergencies . Who to Call and When: Medical Emergencies: Call 911 immediately if you experience any of the following warning signs and symptoms of Stroke: * Sudden numbness or weakness of the face, arm or leg, especially on one side of the body * Sudden confusion, trouble speaking or understanding * Sudden trouble seeing in one or both eyes * Sudden trouble walking, dizziness, loss of balance or coordination * Sudden severe headache with no cause Do not delay calling 911 if you experience any warning signs or symptoms of a stroke. Delay in seeking medical attention may affect what treatments can be given to you. . Non-Emergent Contact Non-Emergency issues call your: Primary Care Provider, Staffing Executive . . "Provider Documentation" section prepared by Waqar Coppola. . Stroke Core Measures Reason no t-PA for Stroke: Treatment not indicated Reason no antithrom by day 2: Treatment provided - N/A Reason no antithrom at D/C: Treatment provided - N/A Reason no statin at D/C: Treatment provided - N/A Reason no anticoag w/a fib: Treatment not indicated . Additional Copies To Jagdeep Poole M.D.; Randy Bermudez D.O.
--- NOTE | 2017-11-12 13:16 | Pharmacy Progress Note ---
Pharmacist Post D/C Phone Note Date of phone call: Nov 12, 2017. Individual with whom pharmacist spoke to: Arnulfo Morfin The following questions were reviewed during the phone call with responses listed below each: Can you tell me the medications that you are currently taking as well as when and how you take each medication? Medications Dose Route/Sig Max Daily Dose Days Date Category Dose Instructions Clopidogrel (Clopidogrel Bisulfate) 75 Mg Tab 75 Mg PO DAILY 11/10/17 Rx Losartan Potassium 50 Mg Tab 50 Mg PO BID 11/10/17 Reported Adjustment 11/10/17: take 1 pill daily for 7 days, then resume 1 pill twice a day Folic Acid 1 Mg Tab 1 Mg PO QAM 11/07/17 Reported Ecotrin Or Generic (Aspirin) 325 Mg Ectab 325 Mg PO QAM 11/07/17 Reported note -> dose decreased to 81 mg Crestor (Rosuvastatin Calcium) 20 Mg Tab 20 Mg PO QPM 11/07/17 Reported Toprol Xl (Metoprolol Succinate) 25 Mg Tabcr 25 Mg PO QAM 11/21/11 Reported Astelin Nasal [place] (Azelastine Hcl) 200 Sprays/30 Ml [place] 200 Sprays NA PRN 11/21/11 Reported Ativan (Lorazepam) 1 Mg Tab 1 Mg PO BID PRN 11/21/11 Reported Zyrtec (Cetirizine HCl) 10 Mg Tab 10 Mg PO QAM 05/27/10 Reported Proscar (Finasteride) 5 Mg Tab 5 Mg PO QPM 05/27/10 Reported Norvasc (Amlodipine Besylate) 5 Mg Tab 5 Mg PO QPM 05/27/10 Reported Protonix (Pantoprazole Sodium) 40 Mg Tab 40 Mg PO QAM 12/24/08 Reported Nitrostat (Nitroglycerin) 0.4 Mg Tab 0.4 Mg UT PRN 12/24/08 Reported When have you missed any doses of your medications? - denies missed doses What side effects are you having from your medications? - denies side effects, no signs/symptoms of bleeding What questions do you have about your medications? - none What problems are you having obtaining your medications? - none When is your next appointment with your primary care doctor? - Arnulfo reports that he had f/u with PCP since discharge. He has appointments set up with ophthalmology (11/12), Cardiology (5/10), and Neurology Additional comments: - I confirmed that Arnulfo remembered to decrease his dose of losartan to once daily. He is aware to increase to BID after 7 days. - He also confirms reducing ASA from 325 mg to 81 mg since starting Plavix . As per the Pharmacist Discharge Counseling for Stroke Patients Protocol, this phone call has been completed within 72 hours of discharge. Thank you for allowing us to be involved in the care of this patient.
== END 2017-11-10 14:43 | disposition home or self-care (01) | DRG 66 ==
LOC: EDBD 04:51 → C.EDB 04:52 → ENRESERV 07:01 → C.2T 07:16 → OBSVTOIN 11-09 05:45
PROVIDERS: ADMIT Hospitalist; ATTEND Hospitalist
DX: I63.8 Other cerebral infarction (principal); R55 Syncope and collapse; H53.462 Homonymous bilateral field defects, left side; R00.1 Bradycardia, unspecified; R19.7 Diarrhea, unspecified; R73.9 Hyperglycemia, unspecified; I25.10 Atherosclerotic heart disease of native coronary artery without angina pectoris; I10 Essential (primary) hypertension; I71.2 Thoracic aortic aneurysm, without rupture; E78.5 Hyperlipidemia, unspecified; I73.9 Peripheral vascular disease, unspecified; N40.0 Benign prostatic hyperplasia without lower urinary tract symptoms; Z86.711 Personal history of pulmonary embolism; I25.2 Old myocardial infarction; Z95.5 Presence of coronary angioplasty implant and graft; Z79.899 Other long term (current) drug therapy; Z88.8 Allergy status to other drugs, medicaments and biological substances; Z90.79 Acquired absence of other genital organ(s); Z98.890 Other specified postprocedural states; Z82.49 Family history of ischemic heart disease and other diseases of the circulatory system

== ENCOUNTER 2020-10-18 07:09 | Inpatient (IN) ==
--- NOTE | 2020-10-18 07:59 | Emergency Department Note ---
Impression & Plan Gross hematuria, Elevated INR, Hematoma of right psoas region to anticoagulant therapy ED Provider Note Provider: Thiago Leonard MD DATE OF SERVICE: 10/18/2020 CHIEF COMPLAINT: Hematuria, right hip and leg pain HISTORY OF PRESENT ILLNESS: Patient is a 80-year-old gentleman past medical history of BPH Ayo retention occasionally self caths with a history of CVA, CAD, atrial fibrillation on Coumadin presenting here today with 2 complaints. States that he noticed approximately 36 hours ago on Sunday evening he began to have hematuria. States he has not self catheterized at home since sometime before this and has noted some bright red blood in his urine. Reports some clots at times. Denies significant feeling of swelling or retention feeling. Denies fever or chills. Denies any trauma. States his INR was slightly elevated 2 weeks ago and he is not due for another recheck until later this week. States the hematuria seems to have worsened some is more bright red now. States he took his blood pressure lying at home and it was in the 90 systolic and thus came here for further evaluation. Denies chest pain or palpitations. No shortness of breath. Denies syncope. Patient denies significant testicular discomfort. Patient reports that he has had issues with neuropathy for some time. Following with his primary doctor and has been started on duloxetine which has helped some with some neuropathic pain in his feet and legs. Reports however he said worsening pain in his right thigh and into his right hip and inguinal area. States is a sharp electric type pain. Denies significant swelling here or new trauma since June when he fell hunting. Patient states when he moves certain ways it hurts and has pain in this hip area prickly when he stands on it. Patient states Tylenol at home does not do very much for the pain. Patient denies significant mid upper back pain at this point however does state the pain does wrap rate down into the lower right SI area. Patient denies any new bulges or masses in the lower abdomen. REVIEW OF SYSTEMS: A total of 10 review of systems was obtained and negative except as stated above in the HPI. PAST MEDICAL HISTORY: As noted above MEDICATIONS: Reviewed home medications which includes Coumadin SOCIAL HISTORY: Lives at home with PHYSICAL EXAM: GENERAL: alert and oriented in no acute distress on stretcher Head: normocephalic and atraumatic EYES: No injection, discharge or icterus. NECK: Trachea midline. LUNGS: Airway patent. No retractions. Breath sounds clear HEART: Regular rate and rhythm. No chest wall tenderness ABDOMEN: Soft and non-tender, without guarding or rebound. SKIN: Acyanotic, warm, dry, without rashes EXTREMITIES: Without swelling, tenderness or deformity except for some pain on flexion of the right hip and inguinal area. NEUROLOGICAL: No aphasia. No facial droop or slurred speech. Able to move all extremities to command. EK bpm sinus rhythm first-degree AV block with PACs. No acute ST segment elevation or depression appreciated with a QTC of 462. Left axis noted with a QRS duration of 142 ms. CONTINUOUS CARDIAC MONITORING: was ordered and showed a heart rate of 98 bpm in normal sinus rhythm with occasional PAC Patient's laboratory studies and imaging reviewed. Differential includes Testicular torsion, mass, infection, hernia, hydrocele, epididymitis, STI, trauma, intra-abdominal process, as well as other pathologies. IMPRESSION/MEDICAL DECISION MAKING: Patient presents onset 30 X hours ago of hematuria he states atraumatic. Does have a history of cathing. Is significantly on Coumadin as well as aspirin for cardiac history. Denies significant abdominal discomfort some pain in the right hip. Gross hematuria noted on urine sample. Laboratory studies show white blood cell count of 10 with a hemoglobin drop of 10.7 today from a baseline of around 15-16. INR is elevated at 4.2 today likely contributing to his hematuria. Given a small IV dose of vitamin K. No signs of significant renal dysfunction. No evidence of cardiac injury and appears to be in a sinus rhythm today. Patient has been following closely with outpatient urology. Does report feeling somewhat weakened and having some hypotension at home but not hypotensive here initially. The leg discomfort and right hip pain seem likely to be more related to underlying neuropathy issues given the chronicity and lack of significant trauma. Low suspicion at this time for acute cauda equina or spinal cord injury. X-rays obtained of the pelvis and hip with arthritic changes. Because mom on fentanyl for pain control. Given his increased INR and pain a CT abdomen pelvis to complete look for other acute intra-abdominal pathology in particular to exclude intrapelvic bleeding of any kind from his elevated INR. CT scan shows blood clots in the bladder with prostamegaly. There is some findings concerning for right iliopsoas hematoma. Given his significant hemoglobin drop and continued gross hematuria while working to reverse the anticoagulation feel that further observation would be prudent for this patient given his symptomatic at home. The patient is in agreement. Rapid Covid testing was ordered and the hospitalist contacted. DIAGNOSIS: Gross hematuria, iliopsoas hematoma, elevated INR DISPOSITION: Hospitalist will evaluate Patient was agreeable with this plan. Past Med/Surg History Medical History Actinic keratosis BPH (benign prostatic hyperplasia) Cataract Coronary artery disease CVA (cerebral vascular accident) Dyslipidemia Eyebrow laceration History of basal cell carcinoma History of pulmonary embolism History of SCC (squamous cell carcinoma) of skin Hypertension Sleep apnea T2DM (type 2 diabetes mellitus) Thoracic aortic aneurysm Surgical History H/O right heart catheterization Hx of tonsillectomy Status post lumbar laminectomy Status post recent transurethral resection of prostate Family History Father Prostate cancer Diabetes Hypertension Heart disease Social History Smoking Status: Never smoker Hx Alcohol Use: Yes Preferred Language: Serbian marital status: current occupational status: retired Feels Safe at Home: Yes Allergies Allergies Allergy/AdvReac Type Severity Reaction Status Date / Time omeprazole Allergy Unknown "SENSITIVIT Verified 10/18/20 08:21 Y" propoxyphene Allergy Unknown "SENSITIVIT Verified 10/18/20 08:21 Y" acetaminophen Allergy Verified 10/18/20 08:21 [From [facility]] Home Meds Home Medications Medication Instructions Recorded Confirmed amlodipine 5 mg PO DAILY 08/14/19 10/18/20 aspirin 81 mg PO DAILY 08/14/19 10/18/20 cetirizine [Zyrtec] 10 mg PO DAILY 08/14/19 10/18/20 folic acid 1 mg PO DAILY 08/14/19 10/18/20 losartan 50 mg PO BID 08/14/19 10/18/20 metoprolol succinate 25 mg PO DAILY 08/14/19 10/18/20 nitroglycerin 0.4 mg SUBLINGUAL UD PRN 08/14/19 10/18/20 pantoprazole 40 mg PO DAILY 08/14/19 10/18/20 polyethylene glycol 3350 [Miralax] 17 g PO DAILY 08/14/19 10/18/20 rosuvastatin 20 mg PO DAILY 08/14/19 10/18/20 tamsulosin 0.4 mg PO DAILY 08/14/19 10/18/20 warfarin 2.5 mg PO QPM 08/14/19 10/18/20 cholecalciferol (vitamin D3) 25 mcg PO DAILY 05/22/20 10/18/20 [Vitamin D3] lorazepam 0.5 mg PO PM PRN 05/22/20 10/18/20 duloxetine 30 mg PO DAILY 10/18/20 10/18/20 methylcellulose (laxative) 500 mg PO DAILY PRN 10/18/20 10/18/20 Previous Rx's Medication Instructions Recorded methenamine hippurate 1 gram tablet 1 gm PO Q12H #60 tab 01/21/20 dutasteride 0.5 mg capsule 0.5 mg PO DAILY #90 cap 09/30/20 Results & Data (ED) Vital Signs Vital Signs - 24 hr 10/18/20 07:21 10/18/20 07:39 10/18/20 08:23 Temperature 36.6 C Temperature Source Oral Pulse Rate 111 H 87 Pulse Rate from SpO2 Sensor 88 Respiratory Rate 18 15 Blood Pressure 139/87 125/76 Blood Pressure Mean 104 92 Pulse Oximetry 98 96 95 Oxygen Delivery Method Room Air Room Air Sepsis Recent Fever Within 48 Hours No Sepsis New/Unexplained Change in Mental Status N/A Sepsis Action Taken by Nursing No Action Required 10/18/20 09:19 10/18/20 10:09 10/18/20 11:20 Temperature Temperature Source Pulse Rate 89 85 Pulse Rate from SpO2 Sensor 89 85 Respiratory Rate 20 18 Blood Pressure 136/77 127/88 139/81 Blood Pressure Mean 96 101 100 Pulse Oximetry 94 96 95 Oxygen Delivery Method Sepsis Recent Fever Within 48 Hours Sepsis New/Unexplained Change in Mental Status Sepsis Action Taken by Nursing 10/18/20 11:30 Temperature Temperature Source Pulse Rate 87 Pulse Rate from SpO2 Sensor 87 Respiratory Rate 17 Blood Pressure 118/73 Blood Pressure Mean 88 Pulse Oximetry 93 Oxygen Delivery Method Sepsis Recent Fever Within 48 Hours Sepsis New/Unexplained Change in Mental Status Sepsis Action Taken by Nursing Laboratory Data Result diagrams: 10/18/20 08:05 10/18/20 08:05 Lab Results 10/18/20 10/18/20 10/18/20 Range/Units 08:05 08:05 08:05 WBC 10.16 (4.8-10.8) K/uL RBC 3.65 L (4.7-6.1) M/uL Hgb 10.7 L (14.0-18.0) g/dL Hct 32.6 L (42-52) % MCV 89.3 (80-100) fL MCH 29.3 (25-34) pg MCHC 32.8 (32-36) g/dL RDW Std Deviation 44.3 (36.4-46.3) fL RDW Coeff of Argelia 13.4 (11.5-14.5) % Plt Count 249 (130-400) K/uL MPV 9.6 (7.4-10.4) fL Immature Gran % (Auto) 0.2 % Neut % (Auto) 81.7 % Lymph % (Auto) 10.7 % Cassia % (Auto) 6.8 % Eos % (Auto) 0.5 % Baso % (Auto) 0.1 % Neut # (Auto) 8.30 H (1.4-6.5) K/uL Lymph # (Auto) 1.09 L (1.2-3.4) K/uL Cassia # (Auto) 0.69 H (0.11-0.59) K/uL Eos # (Auto) 0.05 (0-0.5) K/uL Baso # (Auto) 0.01 (0-0.2) K/uL Immature Gran # (Auto) 0.02 (0.00-0.02) K/uL PT 38.0 H (9.0-12.0) Seconds INR 4.2 H (0.9-1.1) APTT 39.3 H (21.0-31.0) Seconds PTT Ratio 1.5 Sodium 135 L (136-145) mmol/L Potassium 4.1 (3.5-5.1) mmol/L Chloride 104 (98-107) mmol/L Carbon Dioxide 25 (21-32) mmol/L Anion Gap 6.0 (3-11) BUN 17 (7-18) mg/dl Creatinine 1.03 (0.6-1.4) mg/dl Est Cr Clr Drug Dosing 73.6 ml/min Est GFR ( Amer) 80.3 Est GFR (Non-Af Amer) 69.3 BUN/Creatinine Ratio 16.7 (10-20) Glucose 165 H (70-99) mg/dl Calcium 8.2 L (8.5-10.1) mg/dl Total Bilirubin 0.7 (0.2-1) mg/dl AST 16 (15-37) U/L ALT 25 (12-78) U/L Alkaline Phosphatase 68 (45-117) U/L Troponin I < 0.015 (0-0.045) ng/ml Total Protein 5.9 L (6.4-8.2) gm/dl Albumin 3.5 (3.4-5.0) gm/dl Globulin 2.3 L (2.5-4.0) gm/dl Albumin/Globulin Ratio 1.5 (0.9-2) Urine Color Urine Appearance (Clear) Urine pH (4.5-7.5) Ur Specific Gifford (1.000-1.030) Urine Protein (Negative) Urine Glucose (UA) (Negative) Urine Ketones (Negative) Urine Blood (Negative) Urine Nitrite (Negative) Urine Bilirubin (Negative) Urine Urobilinogen (Negative) Ur Leukocyte Esterase (Negative) Urine RBC (0-4) /hpf Urine WBC (0-5) /hpf Ur Epithelial Cells (0-5) /lpf Ur Renal Epithelial Cell (0-5) /lpf Urine Bacteria (Negative) Hyaline Casts (0-5) /lpf Granular Casts (0) /lpf Urine Mucus (None Prsent) COVID-19 Eval Order SARS-CoV-2 (PCR) (Negative) Influenza Type A (PCR) (Neg) Influenza Type B (PCR) (Neg) RSV (RT-PCR) (Neg) Blood Type Antibody Screen Crossmatch 10/18/20 10/18/20 10/18/20 Range/Units 08:20 09:58 09:58 WBC (4.8-10.8) K/uL RBC (4.7-6.1) M/uL Hgb (14.0-18.0) g/dL Hct (42-52) % MCV (80-100) fL MCH (25-34) pg MCHC (32-36) g/dL RDW Std Deviation (36.4-46.3) fL RDW Coeff of Argelia (11.5-14.5) % Plt Count (130-400) K/uL MPV (7.4-10.4) fL Immature Gran % (Auto) % Neut % (Auto) % Lymph % (Auto) % Cassia % (Auto) % Eos % (Auto) % Baso % (Auto) % Neut # (Auto) (1.4-6.5) K/uL Lymph # (Auto) (1.2-3.4) K/uL Cassia # (Auto) (0.11-0.59) K/uL Eos # (Auto) (0-0.5) K/uL Baso # (Auto) (0-0.2) K/uL Immature Gran # (Auto) (0.00-0.02) K/uL PT (9.0-12.0) Seconds INR (0.9-1.1) APTT (21.0-31.0) Seconds PTT Ratio Sodium (136-145) mmol/L Potassium (3.5-5.1) mmol/L Chloride (98-107) mmol/L Carbon Dioxide (21-32) mmol/L Anion Gap (3-11) BUN (7-18) mg/dl Creatinine (0.6-1.4) mg/dl Est Cr Clr Drug Dosing ml/min Est GFR ( Amer) Est GFR (Non-Af Amer) BUN/Creatinine Ratio (10-20) Glucose (70-99) mg/dl Calcium (8.5-10.1) mg/dl Total Bilirubin (0.2-1) mg/dl AST (15-37) U/L ALT (12-78) U/L Alkaline Phosphatase (45-117) U/L Troponin I (0-0.045) ng/ml Total Protein (6.4-8.2) gm/dl Albumin (3.4-5.0) gm/dl Globulin (2.5-4.0) gm/dl Albumin/Globulin Ratio (0.9-2) Urine Color Red Urine Appearance Turbid A (Clear) Urine pH (4.5-7.5) Ur Specific Gifford 1.023 (1.000-1.030) Urine Protein (Negative) Urine Glucose (UA) (Negative) Urine Ketones (Negative) Urine Blood (Negative) Urine Nitrite (Negative) Urine Bilirubin (Negative) Urine Urobilinogen (Negative) Ur Leukocyte Esterase (Negative) Urine RBC >30 H (0-4) /hpf Urine WBC >30 H (0-5) /hpf Ur Epithelial Cells 0-5 (0-5) /lpf Ur Renal Epithelial Cell 0-5 (0-5) /lpf Urine Bacteria 1+ H (Negative) Hyaline Casts 0-5 (0-5) /lpf Granular Casts 1-5 H (0) /lpf Urine Mucus Present A (None Prsent) COVID-19 Eval Order [facility]Rsv at [facility] SARS-CoV-2 (PCR) NEGATIVE (Negative) Influenza Type A (PCR) Negative (Neg) Influenza Type B (PCR) Negative (Neg) RSV (RT-PCR) Negative (Neg) Blood Type Antibody Screen Crossmatch 10/18/20 Range/Units 10:33 WBC (4.8-10.8) K/uL RBC (4.7-6.1) M/uL Hgb (14.0-18.0) g/dL Hct (42-52) % MCV (80-100) fL MCH (25-34) pg MCHC (32-36) g/dL RDW Std Deviation (36.4-46.3) fL RDW Coeff of Argelia (11.5-14.5) % Plt Count (130-400) K/uL MPV (7.4-10.4) fL Immature Gran % (Auto) % Neut % (Auto) % Lymph % (Auto) % Cassia % (Auto) % Eos % (Auto) % Baso % (Auto) % Neut # (Auto) (1.4-6.5) K/uL Lymph # (Auto) (1.2-3.4) K/uL Cassia # (Auto) (0.11-0.59) K/uL Eos # (Auto) (0-0.5) K/uL Baso # (Auto) (0-0.2) K/uL Immature Gran # (Auto) (0.00-0.02) K/uL PT (9.0-12.0) Seconds INR (0.9-1.1) APTT (21.0-31.0) Seconds PTT Ratio Sodium (136-145) mmol/L Potassium (3.5-5.1) mmol/L Chloride (98-107) mmol/L Carbon Dioxide (21-32) mmol/L Anion Gap (3-11) BUN (7-18) mg/dl Creatinine (0.6-1.4) mg/dl Est Cr Clr Drug Dosing ml/min Est GFR ( Amer) Est GFR (Non-Af Amer) BUN/Creatinine Ratio (10-20) Glucose (70-99) mg/dl Calcium (8.5-10.1) mg/dl Total Bilirubin (0.2-1) mg/dl AST (15-37) U/L ALT (12-78) U/L Alkaline Phosphatase (45-117) U/L Troponin I (0-0.045) ng/ml Total Protein (6.4-8.2) gm/dl Albumin (3.4-5.0) gm/dl Globulin (2.5-4.0) gm/dl Albumin/Globulin Ratio (0.9-2) Urine Color Urine Appearance (Clear) Urine pH (4.5-7.5) Ur Specific Gifford (1.000-1.030) Urine Protein (Negative) Urine Glucose (UA) (Negative) Urine Ketones (Negative) Urine Blood (Negative) Urine Nitrite (Negative) Urine Bilirubin (Negative) Urine Urobilinogen (Negative) Ur Leukocyte Esterase (Negative) Urine RBC (0-4) /hpf Urine WBC (0-5) /hpf Ur Epithelial Cells (0-5) /lpf Ur Renal Epithelial Cell (0-5) /lpf Urine Bacteria (Negative) Hyaline Casts (0-5) /lpf Granular Casts (0) /lpf Urine Mucus (None Prsent) COVID-19 Eval Order SARS-CoV-2 (PCR) (Negative) Influenza Type A (PCR) (Neg) Influenza Type B (PCR) (Neg) RSV (RT-PCR) (Neg) Blood Type O Positive Antibody Screen NEGATIVE Crossmatch See Detail Administered Medications Sodium Chloride (Nss 1000ml) 1,000 mls @ 125 mls/hr IV .Q8H MIRANDA Stop: 10/18/20 18:44 Last Admin: 10/18/20 11:26 Dose: 125 mls/hr Documented by: [id number] Discontinued Medications Fentanyl Citrate (Fentanyl Citrate 100 Mcg/2 Ml Vial) 50 mcg IV NOW STA Stop: 10/18/20 09:24 Last Admin: 10/18/20 10:05 Dose: 50 mcg Documented by: [id number] Phytonadione 2.5 mg/ Sodium (Chloride) 50.25 mls @ 100.5 mls/hr IV ONE ONE Stop: 10/18/20 09:53 Last Admin: 10/18/20 10:05 Dose: 100.5 mls/hr Documented by: [id number] Ceftriaxone Sodium (Rocephin) 2,000 mg in 70 mls @ 140 mls/hr IV NOW ONE Stop: 10/18/20 11:14 Last Admin: 10/18/20 11:26 Dose: 140 mls/hr Documented by: [id number] Ioversol (Ioversol 100ml) 93 ml IV ONCE ONE Stop: 10/18/20 11:11 Last Admin: 10/18/20 11:10 Dose: 93 ml Documented by: [id number] Imaging Data Radiologist's Impression: Hip/Pelvis X-Ray 10/18/20 07:47 XR hip RT 2V w pelvis HISTORY: 80 years-old Male pain R hip chronic right hip pain without reported trauma COMPARISON: CT abdomen and pelvis 08/14/2019 TECHNIQUE: AP view of the pelvis with 2 views of the right hip FINDINGS: Mild left with mild to moderate right hip osteoarthritis. No acute fracture, dislocation or avascular necrosis. Vascular calcifications. Surgical clips project over the lumbosacral junction. IMPRESSION: 1. No acute fracture or dislocation. 2. Mild to moderate right hip osteoarthritis. ACT 112: Negative or not required by law. The above report was generated using voice recognition software. It may contain grammatical, syntax or spelling errors. Electronically signed by: Abundio Drake M.D. 10/18/2020 8:55 AM Abdomen/Pelvis CT 10/18/20 09:05 CT SCAN OF THE ABDOMEN AND PELVIS WITH IV CONTRAST CLINICAL HISTORY: Hematuria. Right lower quadrant abdominal pain. COMPARISON STUDY: Abdominal CT dated 08/14/2019. TECHNIQUE: Following the IV administration of 93 cc of Optiray 320, CT scan of the abdomen and pelvis is performed from the lung bases to the proximal femora. Images are reviewed in the axial, sagittal, and coronal planes. IV contrast was administered without complication. A dose lowering technique was utilized adhering to the principles of ALARA. CT DOSE: 932.04 mGy.cm FINDINGS: Lung bases: The heart is enlarged and without pericardial effusion. The coronary arteries are densely calcified. There is aneurysmal dilatation of the ascending thoracic aorta which measures up to 5 cm in diameter. A calcified nodule in the right lower lobe is unchanged. There is mild bibasilar scarring/atelectasis. There is trace right pleural effusion. No airspace consolidation is seen typical for pneumonia. A 7.5 cm lipoma is seen in the left chest wall on image #17. There is a small hiatal hernia. Liver: The contrast-enhanced liver is normal in size, contour, and attenuation. There is no intrahepatic biliary ductal dilatation. The hepatic veins and portal veins are patent. Gallbladder: Unremarkable. Spleen: Normal in size and attenuation. Pancreas: May millimeter IPMN in the pancreatic tail seen on image #159 is un changed. The pancreas is moderately atrophic and otherwise grossly unremarkable. Adrenal glands: A 1.4 cm right adrenal adenoma is unchanged. The left adrenal gland is normal in appearance. Kidneys: The contrast enhanced kidneys demonstrate mild cortical atrophy and are without hydronephrosis. The kidneys enhance symmetrically. A 2 cm cyst is noted in the interpolar left kidney. Additional subcentimeter cortical hypodensities also likely represent cysts but are too small for definitive characterization. Abdominal vasculature: The abdominal aorta is normal in course and caliber noting moderate to advanced atherosclerotic calcification. Bowel: Mild to moderate fecal retention is seen throughout the colon. There is no bowel obstruction. The appendix is well-visualized and normal. Peritoneum: There is no intraperitoneal free air or abdominal ascites. There is a fat-containing umbilical hernia. Lymphadenopathy: None. Pelvic viscera: The prostate gland is enlarged and heterogeneous, measuring 5.2 cm in transverse diameter. There is median lobe hypertrophy. There is hyperdense material within the bladder lumen, likely representing blood clots. The bladder is distended, and the wall appears mildly thickened and trabeculated. There are bilateral fat-containing inguinal hernias, left larger than right. Inflammatory change is identified in the right groin centered around the iliopsoas musculature. There is expansion of the right iliopsoas musculature, greatest anterior to the right hip. Skeletal structures: The skeletal structures are osteopenic. There are chronic compression deformities of T12 and L1. There is advanced multilevel spondylosis with postlumpectomy change throughout the lumbar spine. No lytic or blastic lesions are seen. IMPRESSION: 1. Prostatomegaly with evidence of chronic bladder outlet obstruction. 2. Large blood clots are seen within the bladder lumen. Consider precautionary ultrasound in 1-2 months time to exclude underlying bladder lesion. 3. There is expansion of the right iliopsoas musculature with significant surrounding inflammation. This extends from the bony pelvis into the groin, and likely represents muscular strain with intramuscular hemorrhage. A nonspecific or possibly infectious myositis could appear similar and clinical correlation will be essential. 4. Cardiomegaly and trace right pleural effusion. 5. There is aneurysmal dilatation of the ascending thoracic aorta which measures up to 5 cm. Consider nonemergent vascular surgical follow-up. 6. Additional findings as above. ACT 112: Negative or not required by law. Electronically signed by: Tex Serrano M.D. 10/18/2020 12:19 PM Discharge Plan Visit Data Chief Complaint: Urinary Symptoms Stated Complaint: BLOOD IN URINE,PROBLEM WITH HIPS ED Provider: Thiago Leonard Discharge Problem: Gross hematuria, Elevated INR, Hematoma of right psoas region to anticoagulant therapy Patient Disposition: Admitted As Inpatient Discharge Instructions Interventions: ED Discharge Assessment Last Done: 10/18/20 12:04
[2020-10-18 08:17] LABS: Basophils # (auto) 0.01 K/uL (0-0.2); Basophils % (auto) 0.1 %; Eosinophils # (auto) 0.05 K/uL (0-0.5); Eosinophils % (auto) 0.5 %; Hematocrit (blood only) 32.6 % (42-52); Hemoglobin 10.7 g/dL (14.0-18.0); Immature Granulocytes # (auto) 0.02 K/uL (0.00-0.02); Immature Granulocytes % (auto) 0.2 %; Lymphocytes # (auto) 1.09 K/uL (1.2-3.4); Lymphocytes % (auto) 10.7 %; Mean Corpuscular Hemoglobin 29.3 pg (25-34); Mean Corpuscular Hgb Conc 32.8 g/dL (32-36); Mean Corpuscular Volume 89.3 fL (80-100); Mean Platelet Volume 9.6 fL (7.4-10.4); Monocytes # (auto) 0.69 K/uL (0.11-0.59); Monocytes % (auto) 6.8 %; Neutrophils % (auto) 81.7 %; Platelet Count 249 K/uL (130-400); RDW Coefficient of Variation 13.4 % (11.5-14.5); RDW Standard Deviation 44.3 fL (36.4-46.3); Red Blood Count 3.65 M/uL (4.7-6.1); White Blood Count 10.16 K/uL (4.8-10.8)
[2020-10-18 08:35] LABS: Alanine Aminotransferase 25 U/L (12-78); Albumin Level 3.5 gm/dl (3.4-5.0); Aspartate Aminotransferase 16 U/L (15-37); BUN Creatinine Ratio 16.7 (10-20); Blood Urea Nitrogen 17 mg/dl (7-18); Calcium 8.2 mg/dl (8.5-10.1); Carbon Dioxide 25 mmol/L (21-32); Chloride 104 mmol/L (98-107); Creatinine Clr Calc Pharmacy 73.6 ml/min; Est GFR (African American) 80.3; Est GFR (Non-African American) 69.3; Glucose 165 mg/dl (70-99); Potassium 4.1 mmol/L (3.5-5.1); Sodium 135 mmol/L (136-145)
[2020-10-18 08:38] LABS: INR 4.2 (0.9-1.1); Partial Thromboplastin Ratio 1.5; Partial Thromboplastin Time 39.3 Seconds (21.0-31.0)
[2020-10-18 08:39] LABS: Albumin Globulin Ratio 1.5 (0.9-2); Alkaline Phosphatase 68 U/L (45-117); Bilirubin,Total 0.7 mg/dl (0.2-1); Globulin 2.3 gm/dl (2.5-4.0); Total Protein 5.9 gm/dl (6.4-8.2); Troponin I < 0.015 ng/ml (0-0.045)
--- NOTE | 2020-10-18 08:56 | XRay Report ---
XR hip RT 2V w pelvis HISTORY: 80 years-old Male pain R hip chronic right hip pain without reported trauma COMPARISON: CT abdomen and pelvis 08/14/2019 TECHNIQUE: AP view of the pelvis with 2 views of the right hip FINDINGS: Mild left with mild to moderate right hip osteoarthritis. No acute fracture, dislocation or avascular necrosis. Vascular calcifications. Surgical clips project over the lumbosacral junction. IMPRESSION: 1. No acute fracture or dislocation. 2. Mild to moderate right hip osteoarthritis. ACT 112: Negative or not required by law. The above report was generated using voice recognition software. It may contain grammatical, syntax o r spelling errors. Electronically signed by: Abundio Drake M.D. 10/18/2020 8:55 AM
[2020-10-18 08:57] LABS: Appearance Urine Turbid (Clear); Color Urine Red; Specific Gravity Urine 1.023 (1.000-1.030)
[2020-10-18 09:07] LABS: Bacteria Urine 1+ (Negative); Epithelial Cell Urine 0-5 /lpf (0-5); Hyaline Casts Urine 0-5 /lpf (0-5); Mucus Urine Present (None Prsent); RBC Urine >30 /hpf (0-4); Renal Epithelial Cells Urine 0-5 /lpf (0-5); WBC Urine >30 /hpf (0-5)
[2020-10-18] MEDS ORDERED: fentaNYL citrate 100 MCG/2 ML VIAL IV STA (09:23)
[2020-10-18] MEDS ORDERED: PHYTONADIONE 2.5 MG in SODIUM CHLORIDE 0.9% 50 ML IV ONE (09:24)
--- NOTE | 2020-10-18 09:36 | Electrocardiogram Report ---
Test Reason : Blood Pressure : / mmHG Vent. Rate : 082 BPM Atrial Rate : 082 BPM P-R Int : 226 ms QRS Dur : 142 ms QT Int : 396 ms P-R-T Axes : 014 -47 021 degrees QTc Int : 462 ms Sinus rhythm with 1st degree A-V block with Premature atrial complexes Left anterior fascicular block Non-specific intra-ventricular conduction block Abnormal ECG When compared with ECG of 23-DEC-2017 11:22, Premature atrial complexes are now Present Vent. rate has increased BY 27 BPM T wave inversion no longer evident in Inferior leads Confirmed by Oliver Poole ([id number]) on 10/18/2020 9:36:40 AM Referred By: REFERRED SELF Confirmed By:Oliver Poole
[2020-10-18] MEDS ORDERED: SODIUM CHLORIDE 0.9% 250 ML IV PRN ×2 (10:25→17:24)
--- NOTE | 2020-10-18 10:30 | History & Physical Report ---
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 Pt with gross hematuria in setting of CIC x 2 days. Hgb 16 --> 10.7. INR 4.2. Received 2.5mg IV vit K in ED. Admit to med tele hold warfarin urology consulted, CT a/p pending type/cross and hold 2 units, transfuse hgb < 8 or symptomatic/persistent hematuria in setting of CAD give gentle IVF NPO until ct results repeat INR/H&H @ 1600; then serial h&H q6 Empirically tx with IV rocephin given abn UA, pt with hx of chronic UTI (last culture 10/03 alpha strep, not treated) (4) Chronic urinary tract infection: BPH, Chronic urinary retention, Chronic Intermittent Cath Continue methenamine hippurate, dutasteride, flomax Empirically treat IV Rocephin Await urine culture Urology on board (5) Hematoma of iliopsoas muscle: Ct a/p There is expansion of the right iliopsoas musculature with significant surrounding inflammation. This extends from the bony pelvis into the groin, and likely represents muscular strain with intramuscular hemorrhage. A nonspecific or possibly infectious myositis could appear similar and clinical correlation will be essential. Repeat US in a.m. reverse INR - vit k given monitor and consider ortho eval if worsening (6) Coronary artery disease: (7) Hypertension: Follows [facility] cardiology Continue metoprolol, Crestor hold amlodipine and losartan for now given bp on lower side, resume when able has loop recorder in place (8) CVA (cerebral vascular accident): hx of CVA 07/2017 occipital; 12/2017 L thalamic, embolic on asa, statin, warfarin as outpt hold warfarin in setting of hematuria (9) T2DM (type 2 diabetes mellitus): a1c 6.5 not on any hypoglycemics, BSG 160s in ED a1c in a.m. novolog SS per protocol (10) PAF (paroxysmal atrial fibrillation): continue metoprolol hold warfarin, monitor INR (11) Thoracic aortic aneurysm: follows [facility] cardiology recent echo 08/2020 EF 55%, moderate inferior/posterior wall motion abnormality with hypokinesis, grade 1 diastolic dysfunction, mild AVR, MR and TR, aortic root enlarged 5.0 cm, ascending aorta enlarged 4.8 cm, unchanged from 04/2019 exam (12) Sleep apnea: Cpap at HS Dispo: med tele, will need to stabilize hemoglobin and stop bleeding prior to discharge PCP: Aidan FULL CODE Pt was seen and examined in collaboration with Dr. Tabor, please see addendum History of Present Illness Chief Complaint: Hematuria x2 days. 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 Patient [place] [facility] [place] and was last seen 09/30/20 and intermittently straight caths every evening secondary to BPH with severe urinary urgency and frequency. Of significance in the past he did have elevated PSA of 17 with negative prostate biopsies. He had subsequent greenlight laser prostatectomy but only gave him symptomatic relief of his urinary symptoms. Again follows urology closely. His last straight catheterization was Sunday evening. When he woke up Sunday with urination he developed hematuria. His hematuria has been progressive although did improve slightly yesterday with clearing of urine. When he woke up this morning he was passing bright red blood and clots. He also was lightheaded, dizzy and slightly diaphoretic and therefore presented to ED. He states occasionally he has got hematuria in past secondary to straight catheterization but never lasted this long. He denies any fever, chills, sweats, syncope, change in vision, change in hearing, chest pain, shortness of breath, palpitations, nausea, vomiting, abdominal pain, dysuria, melena or hematochezia. Patient does take Coumadin secondary to history of PAF and history of occipital and left thalamic CVA. He is without residual deficit from CVA. He does have a loop recorder in place. He also has history of ABDULLAHI which he is compliant with CPAP. He has significant history of CAD but is currently without ischemic complaints. He does follow closely with [facility] cardiology. In ED patient remained hemodynamically stable although tachycardic. His hemoglobin was 10.7 today which is significant drop from July 2015 16.3. His INR was 4.2. His WBC was 10.16, sodium 135, K4.1, BUN 17, creatinine 1.03. Urinalysis consistent with red urine with multiple RBCs, WBCs and +1 bacteria. Of significance patient did have urine culture in September which grew alpha strep. CT abdomen pelvis currently pending. He did receive 2.5 mg IV vitamin K. Allergies Allergy/AdvReac Type Severity Reaction Status Date / Time omeprazole Allergy Unknown "SENSITIVIT Verified 10/18/20 08:21 Y" propoxyphene Allergy Unknown "SENSITIVIT Verified 10/18/20 08:21 Y" acetaminophen Allergy Verified 10/18/20 08:21 [From [place]] Home Medications Medication Instructions Recorded Confirmed Type amlodipine 5 mg PO DAILY 08/14/19 10/18/20 History aspirin 81 mg PO DAILY 08/14/19 10/18/20 History cetirizine [Zyrtec] 10 mg PO DAILY 08/14/19 10/18/20 History folic acid 1 mg PO DAILY 08/14/19 10/18/20 History losartan 50 mg PO BID 08/14/19 10/18/20 History metoprolol succinate 25 mg PO DAILY 08/14/19 10/18/20 History nitroglycerin 0.4 mg SUBLINGUAL UD PRN 08/14/19 10/18/20 History pantoprazole 40 mg PO DAILY 08/14/19 10/18/20 History polyethylene glycol 3350 [Miralax] 17 g PO DAILY 08/14/19 10/18/20 History rosuvastatin 20 mg PO DAILY 08/14/19 10/18/20 History tamsulosin 0.4 mg PO DAILY 08/14/19 10/18/20 History warfarin 2.5 mg PO QPM 08/14/19 10/18/20 History methenamine hippurate 1 gram tablet 1 gm PO Q12H #60 tab 01/21/20 10/18/20 Rx cholecalciferol (vitamin D3) 25 mcg PO DAILY 05/22/20 10/18/20 History [Vitamin D3] lorazepam 0.5 mg PO PM PRN 05/22/20 10/18/20 History dutasteride 0.5 mg capsule 0.5 mg PO DAILY #90 cap 09/30/20 10/18/20 Rx duloxetine 30 mg PO DAILY 10/18/20 10/18/20 History methylcellulose (laxative) 500 mg PO DAILY PRN 10/18/20 10/18/20 History Past Med/Surg History Medical History Actinic keratosis BPH (benign prostatic hyperplasia) Cataract Coronary artery disease CVA (cerebral vascular accident) Dyslipidemia Eyebrow laceration History of basal cell carcinoma History of pulmonary embolism History of SCC (squamous cell carcinoma) of skin Hypertension Sleep apnea T2DM (type 2 diabetes mellitus) Thoracic aortic aneurysm Surgical History H/O right heart catheterization Hx of tonsillectomy Status post lumbar laminectomy Status post recent transurethral resection of prostate Family History Father Prostate cancer Diabetes Hypertension Heart disease Social History Smoking Status: Never smoker Hx Alcohol Use: No Hx Substance Use: No Preferred Language: Frisian Communication Ability: Effective Asset Coordinator Required: No Beliefs That Will Affect Care: None marital status: Current Living Situation: Family current occupational status: retired Other Information That Helps Us Care for You: No Feels Safe at Home: Yes Safety Concerns: Feels Safe At This Time Assistive Devices: Glasses Review of Systems Review of Systems: All systems reviewed & are unremarkable except as noted in HPI & below Physical Exam Physical Exam: Constitutional: WD/WN, vitals as above, NAD, sitting up in bed, pleasant, conversing easily, did get lightheaded with leaning forward Head: Normocephalic, Atraumatic Eyes: PERRL, conjunctivae normal, anicteric sclerae ENMT: external ear and nose normal, oropharynx normal Neck: trachea midline, no thyromegaly normal visual inspection Respiratory: normal respiratory effort, lungs clear to auscultation, no wheeze, rales, rhonchi. Normal insp/exp effort, no accessory muscle use Cardiovascular: RRR, no murmur, no edema Vessels: no JVD or carotid bruit Chest: normal inspection of chest Abdomen: normal bowel sounds, soft, nontender, no hepatosplenomegaly Musculoskeletal: no cyanosis or clubbing, extremities motor strength 5/5 Skin: no rashes, warm and dry normal turgor Neurologic: PERRL, EOMI, accommodation nl, no face palsy, no dysarthria CN's II-XI intact bilaterally and moves all extremities Psychiatric: A+Ox3, euthymic affect Lymphatic: no cervical or axillary lymphadenopathy : deferred Results & Data Results & Data ([facility]) Vital Signs (Past 12 Hours) Vital Signs Temp Pulse Resp BP Pulse Ox 10/18/20 08:23 95 10/18/20 07:21 36.6 C 111 H 18 139/87 98 Diagnostic Findings Hip/Pelvis XR: IMPRESSION: 1. No acute fracture or dislocation. 2. Mild to moderate right hip osteoarthritis. Medications Administered Discontinued Medications Fentanyl Citrate (Fentanyl Citrate 100 Mcg/2 Ml Vial) 50 mcg IV NOW STA Stop: 10/18/20 09:24 Last Admin: 10/18/20 10:05 Dose: 50 mcg Documented by: [id number] Phytonadione 2.5 mg/ Sodium (Chloride) 50.25 mls @ 100.5 mls/hr IV ONE ONE Stop: 10/18/20 09:53 Last Admin: 10/18/20 10:05 Dose: 100.5 mls/hr Documented by: [id number] ECG Rate (beats per minute): 82 Rhythm: normal sinus Findings: + 1st degree AV block and + PAC COVID-19 Results Results COVID-19 Adm Lab Results: RBC 3.65 M/uL (4.7-6.1) L 10/18/20 WBC 10.16 K/uL (4.8-10.8) 10/18/20 Hgb 10.0 g/dL (14.0-18.0) L 10/18/20 Hct 30.2 % (42-52) L 10/18/20 Plt Count 249 K/uL (130-400) 10/18/20 Neutrophils (%) (Auto) 81.7 % 10/18/20 Lymphocytes (%) (Auto) 10.7 % 10/18/20 Monocytes # (Auto) 0.69 K/uL (0.11-0.59) H 10/18/20 Eosinophils # (Auto) 0.05 K/uL (0-0.5) 10/18/20 Immature Granulocyte % (Auto) 0.2 % 10/18/20 Neutrophils # (Auto) 8.30 K/uL (1.4-6.5) H 10/18/20 Lymphocytes # (Auto) 1.09 K/uL (1.2-3.4) L 10/18/20 Monocytes # (Auto) 0.69 K/uL (0.11-0.59) H 10/18/20 Eosinophils # (Auto) 0.05 K/uL (0-0.5) 10/18/20 Basophils # (Auto) 0.01 K/uL (0-0.2) 10/18/20 Immature Granulocyte # (Auto) 0.02 K/uL (0.00-0.02) 10/18/20 Na 135 mmol/L (136-145) L 10/18/20 K 4.1 mmol/L (3.5-5.1) 10/18/20 Cl 104 mmol/L (98-107) 10/18/20 CO2 25 mmol/L (21-32) 10/18/20 Anion Gap 6.0 (3-11) 10/18/20 BUN 17 mg/dl (7-18) 10/18/20 Creatinine 1.03 mg/dl (0.6-1.4) 10/18/20 BUN/Creatinine Ratio 16.7 (10-20) 10/18/20 Glucose Level 165 mg/dl (70-99) H 10/18/20 Ca 8.2 mg/dl (8.5-10.1) L 10/18/20 Total Bilirubin 0.7 mg/dl (0.2-1) 10/18/20 AST/SGOT 16 U/L (15-37) 10/18/20 ALT/SGPT 25 U/L (12-78) 10/18/20 Alkaline Phosphatase 68 U/L (45-117) 10/18/20 Total Protein 5.9 gm/dl (6.4-8.2) L 10/18/20 Albumin 3.5 gm/dl (3.4-5.0) 10/18/20 Globulin 2.3 gm/dl (2.5-4.0) L 10/18/20 Albumin/Globulin Ratio 1.5 (0.9-2) 10/18/20 Troponin I < 0.015 ng/ml (0-0.045) 10/18/20 PTT 39.3 Seconds (21.0-31.0) H 10/18/20 INR 4.2 (0.9-1.1) H 10/18/20 COVID-19 PCR NEGATIVE (Negative) 10/18/20 Influenza Virus Type A (PCR) Negative (Neg) 10/18/20 Influenza Virus Type B (PCR) Negative (Neg) 10/18/20 Code Status & VTE Plan Code Status Full Code VTE Prophylaxis Plan VTE Prophylaxis will be ordered: Yes Supervising Physician Co-Signing Physician Notes Patient seen examined by me, care coordinated with Elida Chavarria PA-C, please refer to her note above for further detail. Patient is a 72-year-old male, with history of BPH, urinary retention, self cathing, history of CVA, CAD, A. fib, and other medical problems listed above, who presents with hematuria. In the ED received IV 2.5 mg of vitamin K given his INR was elevated at 4.2. Hemoglobin 10.7, baseline is about 15-16. He also complained of right hip pain/inguinal pain, hip x-ray was obtained and only showed osteoarthritis, however CT was obtained as well later and showed intramuscular psoas inflammation/hematoma. Patient is currently lying in bed, in no acute distress. He denies any chest pain, shortness of breath, dizziness or lightheadedness. He is alert and oriented and answering questions appropriately. Lungs are clear to auscultation bilaterally, without any wheezing rhonchi or crackles noted. Heart sounds regular. Abdomen is soft, obese, mildly distended, nontender to palpation. Patient was extremities spontaneously. There is no erythema or edema of right lower extremity. Skin is warm, dry, well-perfused. Further discussion with urology, Shahid catheter will be placed, for irrigation. Repeat H&H obtained, hemoglobin 10.0 so far stable. Will obtain blood consent. Patient started empirically on IV Rocephin, UA pending. Continue current treatment, and monitor muscle hematoma, follow-up ultrasound to be obtained tomorrow. Randall Tabor MD
--- NOTE | 2020-10-18 10:33 | Urology Consultation ---
Date of Consultation October 18, 2020 Assessment & Plan (1) Gross hematuria: (2) Elevated INR: (3) Acute blood loss anemia: 80 year-old male patient, with multiple comorbidities, admitted with gross hematuria, elevated INR, and anemia. -Plan of care reviewed with Dr. Maxwell. -History of BPH with urinary obstruction, requiring CIC. -Patient afebrile. -Labs reviewed - white count and creatinine stable. Hemoglobin 10.7 (previously 16.3). -Urine culture 09/30 with Alpha Strep not Enterococcus, not treated as outpatient. -Repeat urine culture pending. -CT abd/pelvis reviewed and notable for prostatomegaly with large amount of clot within bladder. -Coumadin on hold per primary team. -Shahid catheter placed, maintain at this time. Irrigate bladder PRN pain/clots/retention. -Continue with supportive care and antibiotic therapy. Continue to monitor H&H closely. -Okay to have diet today. Recommend NPO at midnight. -Will continue to follow closely along with primary team while inpatient. 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 Hematuria started Sunday evening. Does perform chronic CIC, typically once at bedtime. Last performed CIC Sunday evening. Patient reports he did not have any difficulty with catheter insertion at that time. INR noted to be elevated in ER and subsequently admitted for continued observation. Urology consulted for evaluation of gross hematuria. Patient is known to [facility] service, follows with Dr. Al. Does have remote history of Greenlight prostate and chronic retention requiring self-catheterization. Home urinary medications include Dutasteride, Tamsulosin, and Methenamine. Chart review: Afebrile. Blood pressure 139/87, pulse 111 Wbc 10.16 Hgb 10.7 (16.3 in May 2020). Creatinine 1.03 INR 4.2 - Vitamin K given in ED. Urinalysis >30 rbc, >30 wbc, +1 bacteria, +mucus. Urine culture 09/30 with Alpha strep not enterococcus - no treatment at that time. Repeat urine culture pending. IV Ceftriaxone ordered by primary team. Imaging - CT abd/pelvis with IV contrast: IMPRESSION: 1. Prostatomegaly with evidence of chronic bladder outlet obstruction. 2. Large blood clots are seen within the bladder lumen. Consider precautionary ultrasound in 1-2 months time to exclude underlying bladder lesion. 3. There is expansion of the right iliopsoas musculature with significant surrounding inflammation. This extends from the bony pelvis into the groin, and likely represents muscular strain with intramuscular hemorrhage. A nonspecific or possibly infectious myositis could appear similar and clinical correlation will be essential. 4. Cardiomegaly and trace right pleural effusion. 5. There is aneurysmal dilatation of the ascending thoracic aorta which measures up to 5 cm. Consider nonemergent vascular surgical follow-up. Patient examined at bedside. He is alert, awake, and comfortable. Non-toxic in appearance. He reports overall, he does not feel ill. As above, reports gross hematuria that started initially Sunday evening. Sunday into Sunday, hematuria varied in severity. Sunday he noted clots with urination. He denies dysuria. Denies urinary frequency/urgency. He is unsure if he fully empties his bladder but denies bladder pain or pressure. Chart review notes bladder scan of 294 cc around 8:15 this morning. The last time he performed CIC was Sunday evening. No prior history of difficulty with CIC. Denies fevers or chills. Denies nausea or vomiting. Feels weaker than his baseline. Denies significant dizziness but does note feeling "woozy" at times. Does report constipation - last BM was Sunday. He reports he last ate around 4:30 am, ate cereal. Denies additional urologic concerns today. Allergies Allergy/AdvReac Type Severity Reaction Status Date / Time omeprazole Allergy Unknown "SENSITIVIT Verified 10/18/20 08:21 Y" propoxyphene Allergy Unknown "SENSITIVIT Verified 10/18/20 08:21 Y" acetaminophen Allergy Verified 10/18/20 08:21 [From Darvocet-N] Home Medications Medication Instructions Recorded Confirmed Type amlodipine 5 mg PO DAILY 08/14/19 10/18/20 History aspirin 81 mg PO DAILY 08/14/19 10/18/20 History cetirizine [Zyrtec] 10 mg PO DAILY 08/14/19 10/18/20 History folic acid 1 mg PO DAILY 08/14/19 10/18/20 History losartan 50 mg PO BID 08/14/19 10/18/20 History metoprolol succinate 25 mg PO DAILY 08/14/19 10/18/20 History nitroglycerin 0.4 mg SUBLINGUAL UD PRN 08/14/19 10/18/20 History pantoprazole 40 mg PO DAILY 08/14/19 10/18/20 History polyethylene glycol 3350 [Miralax] 17 g PO DAILY 08/14/19 10/18/20 History rosuvastatin 20 mg PO DAILY 08/14/19 10/18/20 History tamsulosin 0.4 mg PO DAILY 08/14/19 10/18/20 History warfarin 2.5 mg PO QPM 08/14/19 10/18/20 History methenamine hippurate 1 gram tablet 1 gm PO Q12H #60 tab 01/21/20 10/18/20 Rx cholecalciferol (vitamin D3) 25 mcg PO DAILY 05/22/20 10/18/20 History [Vitamin D3] lorazepam 0.5 mg PO PM PRN 05/22/20 10/18/20 History dutasteride 0.5 mg capsule 0.5 mg PO DAILY #90 cap 09/30/20 10/18/20 Rx duloxetine 30 mg PO DAILY 10/18/20 10/18/20 History methylcellulose (laxative) 500 mg PO DAILY PRN 10/18/20 10/18/20 History Patient History Medical History Actinic keratosis BPH (benign prostatic hyperplasia) Cataract Coronary artery disease CVA (cerebral vascular accident) Dyslipidemia Eyebrow laceration History of basal cell carcinoma History of pulmonary embolism History of SCC (squamous cell carcinoma) of skin Hypertension Sleep apnea T2DM (type 2 diabetes mellitus) Thoracic aortic aneurysm Surgical History H/O right heart catheterization Hx of tonsillectomy Status post lumbar laminectomy Status post recent transurethral resection of prostate Family History Father Prostate cancer Diabetes Hypertension Heart disease Social History Smoking Status: Never smoker Hx Alcohol Use: No Hx Substance Use: No Preferred Language: Citizen Of [place] Communication Ability: Effective Form Drafter Required: No Beliefs That Will Affect Care: None marital status: Current Living Situation: Family current occupational status: retired Other Information That Helps Us Care for You: No Feels Safe at Home: Yes Safety Concerns: Feels Safe At This Time Assistive Devices: Glasses Review of Systems Constitutional: as per Subjective / HPI; no fever and no chills Eyes: no problem reported Ear, Nose, Mouth, Throat: no hearing loss Respiratory: no cough and no dyspnea Cardiovascular: no chest pain and no edema Gastrointestinal: as per Subjective / HPI Genitourinary: + as per Subjective / HPI Musculoskeletal: as per Subjective / HPI Right hip/right leg pain Neurologic: as per Subjective / HPI Endocrine: as per Subjective / HPI and + fatigue Hematologic / Lymphatic: as per Subjective / HPI Physical Exam Constitutional: well developed and well nourished; no acute distress and not ill appearing ENMT: Ears: no external ear abnormality Neck: normal visual inspection and trachea midline Respiratory: normal respiratory effort and able to speak in complete sentences; no respiratory distress and no audible wheezes Cardiovascular: Extremities: no calf tenderness and no edema Gastrointestinal (Abdomen): Inspection/Auscultation: abdomen normal to inspection and + abdomen distended (Obese) Percussion/Palpation: abdomen soft; abdomen nontender and no guarding Musculoskeletal: Moves all extremities without difficulty. Skin: No visible rashes, lesions, or wounds noted. Neurologic: moves all extremities and awake Psychiatric: Orientation: alert, oriented x 3 and cooperative Affect: euthymic affect Genitourinary: no CVA tenderness 22 F Coude Shahid catheter placed by nursing without difficulty. Urine dark maroon in color. Shahid catheter hand- irrigated with several small clots in return. Patient tolerated well without discomfort. Shahid intact and draining. Results & Data ([facility]) Vital Signs (Past 12 Hours) Vital Signs Temp Pulse Resp BP Pulse Ox 10/18/20 08:23 95 10/18/20 07:21 36.6 C 111 H 18 139/87 98 PG Care Time/CCT Total # of Minutes Spent Total Time Spent with Patient: Total time spent is greater than 50% in coordination of care (as documented) at patient's floor/unit and/or counseling patient: Coding Level of Care Code 47513 Initial Inpt Care Lvl 3 Diagnoses Gross hematuria R31.0 Elevated INR R79.1 Acute blood loss anemia D62
[2020-10-18] MEDS ORDERED: cefTRIAXone SODIUM 2,000 MG/70 ML BAG IV ONE (10:45)
[2020-10-18] MEDS ORDERED: SODIUM CHLORIDE 0.9% 1000ML 1,000 ML IV SCH (10:45)
[2020-10-18 11:00] LABS: Influenza A virus by PCR Negative (Neg); Influenza B virus by PCR Negative (Neg); RSV by PCR Negative (Neg); SARS CoV2 RNA(COVID-19) InHosp NEGATIVE (Negative)
[2020-10-18] MEDS ORDERED: OPTIRAY 320 100ml IV ONE (11:10)
--- NOTE | 2020-10-18 12:20 | CT Scan Report ---
CT SCAN OF THE ABDOMEN AND PELVIS WITH IV CONTRAST CLINICAL HISTORY: Hematuria. Right lower quadrant abdominal pain. COMPARISON STUDY: Abdominal CT dated 08/14/2019. TECHNIQUE: Following the IV administration of 93 cc of Optiray 320, CT scan of the abdomen and pelvi s is performed from the lung bases to the proximal femora. Images are reviewed in the axial, sagittal , and coronal planes. IV contrast was administered without complication. A dose lowering technique wa s utilized adhering to the principles of ALARA. CT DOSE: 932.04 mGy.cm FINDINGS: Lung bases: The heart is enlarged and without pericardial effusion. The coronary arteries are densely calcified. There is aneurysmal dilatation of the ascending thoracic aorta which measures up to 5 cm in diameter. A calcified nodule in the right lower lobe is unchanged. There is mild bibasilar scarrin g/atelectasis. There is trace right pleural effusion. No airspace consolidation is seen typical for p neumonia. A 7.5 cm lipoma is seen in the left chest wall on image #17. There is a small hiatal hernia . Liver: The contrast-enhanced liver is normal in size, contour, and attenuation. There is no intrahepa tic biliary ductal dilatation. The hepatic veins and portal veins are patent. Gallbladder: Unremarkable. Spleen: Normal in size and attenuation. 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 The pancreas is moderately atrophic and otherwise grossly unremarkable. Adrenal glands: A 1.4 cm right adrenal adenoma is unchanged. The left adrenal gland is normal in appe arance. Kidneys: The contrast enhanced kidneys demonstrate mild cortical atrophy and are without hydronephros is. The kidneys enhance symmetrically. A 2 cm cyst is noted in the interpolar left kidney. Additional subcentimeter cortical hypodensities also likely represent cysts but are too small for definitive ch aracterization. Abdominal vasculature: The abdominal aorta is normal in course and caliber noting moderate to advance d atherosclerotic calcification. Bowel: Mild to moderate fecal retention is seen throughout the colon. There is no bowel obstruction. The appendix is well-visualized and normal. Peritoneum: There is no intraperitoneal free air or abdominal ascites. There is a fat-containing umbi lical hernia. Lymphadenopathy: None. Pelvic viscera: The prostate gland is enlarged and heterogeneous, measuring 5.2 cm in transverse diam eter. There is median lobe hypertrophy. There is hyperdense material within the bladder lumen, likely representing blood clots. The bladder is distended, and the wall appears mildly thickened and trabec ulated. There are bilateral fat-containing inguinal hernias, left larger than right. Inflammatory isabel nge is identified in the right groin centered around the iliopsoas musculature. There is expansion of the right iliopsoas musculature, greatest anterior to the right hip. Skeletal structures: The skeletal structures are osteopenic. There are chronic compression deformitie s of T12 and L1. There is advanced multilevel spondylosis with postlumpectomy change throughout the l umbar spine. No lytic or blastic lesions are seen. IMPRESSION: 1. Prostatomegaly with evidence of chronic bladder outlet obstruction. 2. Large blood clots are seen within the bladder lumen. Consider precautionary ultrasound in 1-2 heena hs time to exclude underlying bladder lesion. 3. There is expansion of the right iliopsoas musculature with significant surrounding inflammation. T his extends from the bony pelvis into the groin, and likely represents muscular strain with intramusc ular hemorrhage. A nonspecific or possibly infectious myositis could appear similar and clinical rena elation will be essential. 4. Cardiomegaly and trace right pleural effusion. 5. There is aneurysmal dilatation of the ascending thoracic aorta which measures up to 5 cm. Consider nonemergent vascular surgical follow-up. 6. Additional findings as above. ACT 112: Negative or not required by law. Electronically signed by: Tex Serrano M.D. 10/18/2020 12:19 PM
[2020-10-18] MEDS ORDERED: NITROGLYCERIN SL 0.4 MG/TAB TAB SL PRN (13:08)
[2020-10-18] MEDS ORDERED: POLYETHYLENE (MIRALAX) 17 GM PACK PO PRN (13:08)
[2020-10-18] MEDS ORDERED: DEXTROSE 50% 50 ML SYRINGE IV PRN (13:08)
[2020-10-18] MEDS ORDERED: GLUCOSE 40% GEL 15 GM TUBE PO PRN (13:08)
[2020-10-18] MEDS ORDERED: GLUCOSE 10 TABS/TUBE PO PRN (13:08)
[2020-10-18] MEDS ORDERED: ONDANSETRON INJ 2 MG/ML 2 ML VIAL IV PRN (13:08)
[2020-10-18] MEDS ORDERED: CARBOHYDRATES FOR HYPOGLYCEMIA PO PRN (13:08)
[2020-10-18] MEDS ORDERED: LORazepam 0.5 MG TAB PO PRN (13:08)
[2020-10-18] MEDS ORDERED: ACETAMINOPHEN 325 MG TAB PO PRN (13:08)
[2020-10-18] MEDS ORDERED: GLUCAGON FOR INJ 1 MG VIAL SQ PRN (13:08)
[2020-10-18] MEDS ORDERED: ALUMINUM/MAGNESIUM SUSP 30 ML UDC PO PRN (13:08)
[2020-10-18] MEDS ORDERED: MAGNESIUM HYDROXIDE SUSP 30 ML UDC PO PRN (13:08)
[2020-10-18] MEDS ORDERED: METHYLCELLULOSE 500 MG PO PRN (13:08)
[2020-10-18 13:49] LABS: Hematocrit (blood only) 30.2 % (42-52)
[2020-10-18] MEDS: INSULIN ASPART 100 UNITS/ML 3 ML PEN SC SCH ×3 (13:59→20:17)
[2020-10-18] MEDS: METHENAMINE HIPPURATE 1 GM TAB PO SCH ×2 (14:25→20:35)
[2020-10-18 16:11] LABS: INR 1.9 (0.9-1.1); Prothrombin Time 18.1 Seconds (9.0-12.0)
[2020-10-18] MEDS: DUTASTERIDE: ORDER AWAITING ACTION SCH ×2 (17:06→22:42)
[2020-10-18 17:38] LABS: Hematocrit (blood only) 30.1 % (42-52)
[2020-10-18 19:53] LABS: Hematocrit (blood only) 32.7 % (42-52); Hemoglobin 10.7 g/dL (14.0-18.0)
[2020-10-18 22:36] LABS: Hematocrit (blood only) 28.5 % (42-52); Hemoglobin 9.6 g/dL (14.0-18.0)
[2020-10-19 04:37] LABS: Basophils # (auto) 0.01 K/uL (0-0.2); Basophils % (auto) 0.1 %; Eosinophils # (auto) 0.09 K/uL (0-0.5); Hematocrit (blood only) 28.8 % (42-52); Hemoglobin 9.6 g/dL (14.0-18.0); Immature Granulocytes # (auto) 0.03 K/uL (0.00-0.02); Immature Granulocytes % (auto) 0.3 %; Lymphocytes # (auto) 1.29 K/uL (1.2-3.4); Lymphocytes % (auto) 13.9 %; Mean Corpuscular Hemoglobin 29.6 pg (25-34); Mean Corpuscular Hgb Conc 33.3 g/dL (32-36); Mean Corpuscular Volume 88.9 fL (80-100); Mean Platelet Volume 9.4 fL (7.4-10.4); Monocytes # (auto) 0.98 K/uL (0.11-0.59); Monocytes % (auto) 10.5 %; Neutrophils % (auto) 74.2 %; Platelet Count 215 K/uL (130-400); RDW Coefficient of Variation 13.6 % (11.5-14.5); RDW Standard Deviation 44.1 fL (36.4-46.3); Red Blood Count 3.24 M/uL (4.7-6.1)
[2020-10-19 04:52] LABS: INR 1.2 (0.9-1.1)
[2020-10-19 04:58] LABS: BUN Creatinine Ratio 18.5 (10-20); Creatinine Clr Calc Pharmacy 82.4 ml/min; Est GFR (Non-African American) 79.4; Magnesium 2.2 mg/dl (1.8-2.4); Potassium 4.1 mmol/L (3.5-5.1)
--- NOTE | 2020-10-19 06:52 | Hospitalist Progress Note ---
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 Pt with gross hematuria in setting of CIC x 2 days. Hgb 16 --> 10.7. INR 4.2 on admission, now 1.2 Received 2.5mg IV vit K in ED. Admit to med tele hold warfarin urology on board 22 caude zuniga placed, bladder irrigated with improvement, urine color improving Urology on board, no need for procedure this a.m. and will continue to monitor - spoke with SALUD Hayes this morning Hgb 9.6 at lowest, actually trending up to 10.3 this morning 2 units on hold, transfuse hgb < 8 or symptomatic/persistent hematuria in setting of CAD Continue Empiric tx with IV rocephin, await culture, pt with hx of chronic UTI (last culture 10/03 alpha strep, not treated) Generalized weakness consult PT/OT to prevent deconditioning (4) Chronic urinary tract infection: BPH, Chronic urinary retention, Chronic Intermittent Cath Continue methenamine hippurate, dutasteride, flomax Empirically treat IV Rocephin Await urine culture Urology on board (5) Hematoma of iliopsoas muscle: Ct a/p There is expansion of the right iliopsoas musculature with significant surrounding inflammation. This extends from the bony pelvis into the groin, and likely represents muscular strain with intramuscular hemorrhage. A nonspecific or possibly infectious myositis could appear similar and clinical correlation will be essential. Repeat US in today shows no fluid collection, leg is improving - consult PT INR reversed (6) Coronary artery disease: (7) Hypertension: Follows [facility] cardiology Continue metoprolol, Crestor hold amlodipine and losartan for now given bp on lower side, resume when able has loop recorder in place (8) CVA (cerebral vascular accident): hx of CVA 07/2017 occipital; 12/2017 L thalamic, embolic on asa, statin, warfarin as outpt hold warfarin in setting of hematuria (9) T2DM (type 2 diabetes mellitus): a1c 6.4 not on any hypoglycemics, BSG 128 novolog SS per protocol If BSG remains stable today will d/c novolog and reduce freq of accuchecks (10) PAF (paroxysmal atrial fibrillation): continue metoprolol hold warfarin, monitor INR (11) Thoracic aortic aneurysm: follows [facility] cardiology recent echo 08/2020 EF 55%, moderate inferior/posterior wall motion abnormality with hypokinesis, grade 1 diastolic dysfunction, mild AVR, MR and TR, aortic root enlarged 5.0 cm, ascending aorta enlarged 4.8 cm, unchanged from 04/2019 exam (12) Sleep apnea: Cpap at HS Dvt ppx: SCD/TEDS, no chemical prophylaxis in setting of bleeding Dispo: med tele, will need to stabilize hemoglobin and stop bleeding prior to discharge PCP: Aidan FULL CODE Pt was seen and examined in collaboration with Dr. Tabor, please see addendum Admission and Anticipated Discharge Date Admission Date: October 18, 2020 Supervising Physician Co-Signing Physician Notes Patient seen and examined by me, care coordinated with Elida Chavarria PA-C. I edited the note above. Subjective Patient was seen and examined in room 288-2. Follow up gross hematuria and elevated INR. He feels tired this morning from, "laying around." Reports constipation. No BM i n 4 days, normal for him is 2 days. Nurse gave him miralax this morning. He feels like his urine is clearing up. Also RLE pain is improving, but wishes to move around more. He denies f/c/s, dizziness, lightheaded, chest pain, n/v/d or abd pain. INR normalized today, 1.2. Hemoglobin stable. Review of Systems Review of Systems: All systems reviewed & are unremarkable except as noted in HPI & below Constitutional: no fever and no chills Respiratory: no cough and no dyspnea Cardiovascular: no chest pain and no palpitations Gastrointestinal: no abdominal pain, no nausea and no vomiting Physical Exam Physical Exam: Gen: WD/WN, M, lying in bed, NAD, A&O x3 HEENT: Normocephalic, atraumatic, EOMI, conjunctivae moist, sclerae anicteric, mucous membranes moist. Lung: Clear to Auscultation bilaterally, no wheezes/rales/rhonchi Heart: Regular rate, regular rhythm, no murmurs, rubs, or gallops Abdomen: Soft, NT, ND +BS x 4 Extremities: No edema Skin: Warm, no rash, negative turgor. : loren colored urine in zuniga bag, clear urine draining in cath tube Results & Data Results & Data ([facility]) Vital Signs (Past 12 Hours) Vital Signs Temp Pulse Pulse Resp BP Pulse Ox 10/19/20 03:34 37.1 C 83 18 105/55 L 96 10/19/20 00:38 81 10/18/20 23:43 37.1 C 80 18 124/70 94 10/18/20 21:00 77 16 94 Laboratory Results Short CBC 10/18/20 10/18/20 10/18/20 Range/Units 13:25 15:45 17:29 WBC (4.8-10.8) K/uL Hgb 10.0 L 10.7 L 10.0 L (14.0-18.0) g/dL Hct 30.2 L 32.7 L 30.1 L (42-52) % Plt Count (130-400) K/uL 10/18/20 10/19/20 10/19/20 Range/Units 22:20 04:25 09:52 WBC 9.30 (4.8-10.8) K/uL Hgb 9.6 L 9.6 L 10.3 L (14.0-18.0) g/dL Hct 28.5 L 28.8 L 30.8 L (42-52) % Plt Count 215 (130-400) K/uL BMP 10/19/20 04:25 Sodium 139 Potassium 4.1 Chloride 107 Carbon Dioxide 29 BUN 17 Creatinine 0.92 Glucose 118 H Calcium 8.0 L Diagnostic Findings non vascular RLE US: COMPARISON STUDY: Pelvic CT dated 10/18/2020. FINDINGS: Real-time grayscale sonography of the right groin is performed. The inflammatory stranding and presumed intramuscular hemorrhage in the right iliopsoas muscle seen by CT is not apparent by ultrasound. No organized fluid collection/hematoma is identified. IMPRESSION: There is no organized fluid collection/hematoma identified in the right groin by ultrasound. See above. Medications Administered Current Inpatient Medications Acetaminophen (Acetaminophen 325 Mg Tab) 650 mg PO Q4H PRN PRN Reason: Pain or Fever Stop: 11/17/20 13:07 Al Hydrox/Mg Hydrox/Simethicone (Aluminum/Magnesium Susp 30 Ml Udc) 15 ml PO Q4H PRN PRN Reason: Dyspepsia Stop: 11/17/20 13:07 Aspirin (Aspirin 81 Mg Ectab) 81 mg PO DAILY MIRANDA Stop: 11/18/20 08:59 Last Admin: 10/19/20 08:11 Dose: 81 mg Documented by: Cetirizine HCl (Cetirizine Hcl 10 Mg Tablet) 10 mg PO DAILY MIRANDA Stop: 11/18/20 08:59 Last Admin: 10/19/20 08:11 Dose: 10 mg Documented by: Dextrose (Dextrose 50% 50 Ml Syringe) 25 - 50 ml IV UD PRN; Protocol PRN Reason: Hypoglycemia Protocol Stop: 11/17/20 13:07 Duloxetine HCl (Duloxetine Hcl 30 Mg Cap) 30 mg PO DAILY MIRANDA Stop: 11/18/20 08:59 Last Admin: 10/19/20 08:11 Dose: 30 mg Documented by: Folic Acid (Folic Acid 1 Mg Tab) 1 mg PO DAILY MIRANDA Stop: 11/18/20 08:59 Last Admin: 10/19/20 08:10 Dose: 1 mg Documented by: Glucagon (Glucagon For Inj 1 Mg Vial) 1 mg SQ UD PRN; Protocol PRN Reason: Hypoglycemia Protocol Stop: 11/17/20 13:07 Glucose (Glucose 10 Tabs/Tube) 4 - 8 tabs PO UD PRN; Protocol PRN Reason: Hypoglycemia Protocol Stop: 11/17/20 13:07 Glucose (Glucose 40% Gel 15 Gm Tube) 15 - 30 gm PO UD PRN; Protocol PRN Reason: Hypoglycemia Protocol Stop: 11/17/20 13:07 Ceftriaxone Sodium 2,000 mg/ (Dextrose) 70 mls @ 100 mls/hr IV Q24H MIRANDA; Protocol Stop: 10/20/20 11:59 Insulin Aspart (Insulin Aspart 100 Units/Ml 3 Ml Pen) 0 units SC ACHS MIRANDA Stop: 11/17/20 13:07 Last Admin: 10/19/20 08:25 Dose: Not Given Documented by: Lorazepam (Lorazepam 0.5 Mg Tab) 0.5 mg PO PM PRN PRN Reason: Insomnia Stop: 11/17/20 13:07 Magnesium Hydroxide (Magnesium Hydroxide Susp 30 Ml Udc) 30 ml PO Q12H PRN PRN Reason: Constipation Stop: 11/17/20 13:07 Methenamine Hippurate (Methenamine Hippurate 1 Gm Tab) 1 gm PO Q12 MIRANDA Stop: 11/17/20 13:07 Last Admin: 10/19/20 08:12 Dose: 1 gm Documented by: Metoprolol Succinate (Metoprolol Succ 25mg Ext Rel Tab) 25 mg PO DAILY MIRANDA Stop: 11/18/20 08:59 Last Admin: 10/19/20 08:11 Dose: 25 mg Documented by: Miscellaneous (Carbohydrates For Hypoglycemia ) 15 - 30 gm PO UD PRN PRN Reason: Hypoglycemia Protocol Stop: 11/17/20 13:07 Miscellaneous (Dutasteride: Order Awaiting Action) 1 ea N/A QS [facility] Stop: 11/17/20 15:59 Last Admin: 10/19/20 08:12 Dose: Not Given Documented by: Nitroglycerin (Nitroglycerin Sl 0.4 Mg/Tab Tab) 0.4 mg SL UD PRN PRN Reason: Chest Pain Stop: 11/17/20 13:07 Ondansetron HCl (Ondansetron Inj 2 Mg/Ml 2 Ml Vial) 4 mg IV Q6H PRN PRN Reason: Nausea Stop: 11/17/20 13:07 Pantoprazole Sodium (Pantoprazole 40 Mg Tab) 40 mg PO DAILY [facility] Stop: 11/18/20 08:59 Last Admin: 10/19/20 08:11 Dose: 40 mg Documented by: Polyethylene Glycol (Polyethylene (Miralax) 17 Gm Pack) 17 gm PO DAILY PRN PRN Reason: Constipation Stop: 11/17/20 13:07 Polyethylene Glycol (Polyethylene (Miralax) 17 Gm Pack) 17 gm PO DAILY [facility] Stop: 11/18/20 08:59 Last Admin: 10/19/20 08:11 Dose: 17 gm Documented by: Rosuvastatin Calcium (Rosuvastatin Calcium 20 Mg Tab) 20 mg PO DAILY [facility] Stop: 11/18/20 08:59 Last Admin: 10/19/20 08:11 Dose: 20 mg Documented by: Tamsulosin HCl (Tamsulosin Hcl 0.4 Mg Cap) 0.4 mg PO DAILY MIRANDA Stop: 11/18/20 08:59 Last Admin: 10/19/20 08:12 Dose: 0.4 mg Documented by: Vitamin D (Cholecalciferol 1,000 Units 25 Mcg Tab) 1,000 units PO DAILY MIRANDA Stop: 11/18/20 08:59 Last Admin: 10/19/20 08:12 Dose: 1,000 units Documented by:
[2020-10-19 06:53] LABS: Estimated Average Glucose 137 mg/dl; Hemoglobin A1C 6.4 % (4.5-5.6)
[2020-10-19] MEDS: FOLIC ACID 1 MG TAB PO SCH (08:10)
[2020-10-19] MEDS: DULoxetine HCL 30 MG CAP PO SCH (08:11)
[2020-10-19] MEDS: METOPROLOL SUCC 25MG EXT REL TAB PO SCH (08:11)
[2020-10-19] MEDS: ASPIRIN 81 MG ECTAB PO SCH (08:11)
[2020-10-19] MEDS: ROSUVASTATIN CALCIUM 20 MG TAB PO SCH (08:11)
[2020-10-19] MEDS: PANTOprazole 40 MG TAB PO SCH (08:11)
[2020-10-19] MEDS: POLYETHYLENE (MIRALAX) 17 GM PACK PO SCH (08:11)
[2020-10-19] MEDS: CETIRIZINE HCL 10 MG TABLET PO SCH (08:11)
[2020-10-19] MEDS: METHENAMINE HIPPURATE 1 GM TAB PO SCH ×2 (08:12→20:29)
[2020-10-19] MEDS: CHOLECALCIFEROL 1,000 UNITS 25 MCG TAB PO SCH (08:12)
[2020-10-19] MEDS: TAMSULOSIN HCL 0.4 MG CAP PO SCH (08:12)
[2020-10-19] MEDS: DUTASTERIDE: ORDER AWAITING ACTION SCH ×3 (08:12→23:05)
[2020-10-19] MEDS: INSULIN ASPART 100 UNITS/ML 3 ML PEN SC SCH ×4 (08:25→20:36)
[2020-10-19] MEDS ORDERED: ASPIRIN 81 MG ECTAB PO SCH (09:00)
--- NOTE | 2020-10-19 09:56 | Ultrasound Report ---
ULTRASOUND RIGHT GROIN NONVASCULAR CLINICAL HISTORY: Right iliopsoas hemorrhage. COMPARISON STUDY: Pelvic CT dated 10/18/2020. FINDINGS: Real-time grayscale sonography of the right groin is performed. The inflammatory stranding and presumed intramuscular hemorrhage in the right iliopsoas muscle seen by CT is not apparent by ult rasound. No organized fluid collection/hematoma is identified. IMPRESSION: There is no organized fluid collection/hematoma identified in the right groin by ultrasou nd. See above. Electronically signed by: Tex Serrano M.D. 10/19/2020 9:55 AM
[2020-10-19 10:06] LABS: Hematocrit (blood only) 30.8 % (42-52); Hemoglobin 10.3 g/dL (14.0-18.0)
[2020-10-19] MEDS ORDERED: DOCUSATE SODIUM/SENNA 50/8.6MG TAB PO STA (10:43)
--- NOTE | 2020-10-19 10:46 | Urology Progress Note ---
Date of Service October 19, 2020 Assessment & Plan (1) Gross hematuria: 80 year-old male patient, with multiple comorbidities, admitted with gross hematuria, elevated INR, and anemia. -History of BPH with urinary obstruction, requiring CIC. -Patient afebrile. -Labs reviewed - white count and creatinine stable. Hemoglobin 10.3 (previous 9.6 ). -Hematuria has improved - Clear, yellow urine noted in tubing this morning -Urine culture pending -Plan of care reviewed with Dr. Haywood. -No acute intervention warranted at this time -Maintain Shahid catheter, can irrigate bladder PRN pain/clots/retention. -Continue with supportive care and antibiotic therapy. Continue to monitor H&H closely. -Okay to have diet today. -Will continue to follow Admission and Anticipated Discharge Date Admission Date: October 19, 2020 Subjective Pt examined at bedside this AM. Awake, resting comfortably in bed on arrival. He denies back, flank, and suprapubic pain at this time. Shahid catheter intact/patent, draining clear, yellow urine in tubing. No fevers or chills. No nausea or vomiting. Denies dysuria. Has been OOB without dizziness/lightheadedness. He does report constipation, LBM was Sunday. NPO since midnight. Chart review: Afebrile Wbc 9.30 Hgb 10.3 (previous 9.6) Cr 0.92 Urine culture pending On IV Ceftriaxone Shahid catheter irrigated overnight with x 2 large clots removed Review of Systems Constitutional: as per Subjective / HPI Gastrointestinal: as per Subjective / HPI Genitourinary: + as per Subjective / HPI Physical Exam Constitutional: well developed and well nourished; no acute distress Respiratory: no respiratory distress and no labored breathing Cardiovascular: Extremities: no calf tenderness Gastrointestinal (Abdomen): Percussion/Palpation: abdomen soft; abdomen nontender and no guarding Musculoskeletal: Head/Neck/Chest: normocephalic Skin: Warm and dry. No visible rashes or lesions. Neurologic: awake Psychiatric: A+Ox3, euthymic affect Genitourinary: no CVA tenderness Shahid catheter intact, draining clear, yellow urine in tubing Results & Data ([facility]) Vital Signs (Past 12 Hours) Vital Signs Temp Pulse Pulse Resp BP Pulse Ox 10/19/20 07:02 36.9 C 75 18 110/61 97 04/06/21 03:34 37.1 C 83 18 105/55 L 96 10/19/20 00:38 81 10/18/20 23:43 37.1 C 80 18 124/70 94 PG Care Time/CCT Total # of Minutes Spent Total Time Spent with Patient: Total time spent is greater than 50% in coordination of care (as documented) at patient's floor/unit and/or counseling patient: Coding Level of Care Code 18961 Subseq Hosp Care Lvl 2 Diagnoses Gross hematuria R31.0
[2020-10-19] MEDS ORDERED: cefTRIAXone SODIUM 2,000 MG in DEXTROSE 5% 50 ML IV SCH (12:00)
[2020-10-20 06:27] LABS: Basophils # (auto) 0.01 K/uL (0-0.2); Basophils % (auto) 0.1 %; Eosinophils # (auto) 0.16 K/uL (0-0.5); Eosinophils % (auto) 2.1 %; Hematocrit (blood only) 28.8 % (42-52); Hemoglobin 9.4 g/dL (14.0-18.0); Immature Granulocytes # (auto) 0.02 K/uL (0.00-0.02); Immature Granulocytes % (auto) 0.3 %; Lymphocytes # (auto) 1.28 K/uL (1.2-3.4); Lymphocytes % (auto) 16.4 %; Mean Corpuscular Hemoglobin 29.4 pg (25-34); Mean Corpuscular Hgb Conc 32.6 g/dL (32-36); Mean Platelet Volume 9.6 fL (7.4-10.4); Monocytes # (auto) 0.82 K/uL (0.11-0.59); Monocytes % (auto) 10.5 %; Neutrophils % (auto) 70.6 %; Platelet Count 232 K/uL (130-400); RDW Coefficient of Variation 13.7 % (11.5-14.5); RDW Standard Deviation 45.1 fL (36.4-46.3); White Blood Count 7.79 K/uL (4.8-10.8)
[2020-10-20 06:47] LABS: Prothrombin Time 10.6 Seconds (9.0-12.0)
[2020-10-20 06:59] LABS: BUN Creatinine Ratio 20.8 (10-20); Calcium 8.4 mg/dl (8.5-10.1); Creatinine Clr Calc Pharmacy 78.4 ml/min; Est GFR (African American) 87.4; Est GFR (Non-African American) 75.4; Potassium 4.1 mmol/L (3.5-5.1)
--- NOTE | 2020-10-20 07:55 | Urology Progress Note ---
Date of Service October 20, 2020 Assessment & Plan (1) Gross hematuria: 80 year-old male patient, with multiple comorbidities, admitted with gross hematuria, elevated INR, and anemia. -History of BPH with urinary obstruction, requiring CIC. -Plan of care reviewed with Dr. Ken. -Patient remains afebrile. -Labs reviewed - white count normal, hemoglobin this morning 9.4 (previously 10.3). -Shahid catheter intact, now draining clear yellow urine. -Urine culture pin-point growth, re-incubating, await final. -Maintain Shahid catheter for now, can irrigate bladder PRN pain/clots/retention. -Continue with supportive care and antibiotic therapy. Continue to monitor H&H closely. -Presuming his urine remains clear, okay to offer voiding trial prior to discharge. Resume home CIC once catheter removed as previously directed. -Will continue to follow while inpatient. Admission and Anticipated Discharge Date Admission Date: October 19, 2020 Subjective Pt examined at bedside. He is awake, alert, and comfortable. Reports he did not sleep well overnight due to room distractions. Currently denies pain. Denies bladder pain/pressure. Shahid catheter intact/patent, draining clear, yellow urine. Shahid did not require irrigation yesterday or overnight. No fevers or chills. No nausea or vomiting. Has been OOB without dizziness/lightheadedness. He does report continued constipation, LBM was Sunday. Chart review: Afebrile Wbc 7.79 Hgb 9.4 (previously 10.3) Creatinine 0.96 Urine culture with pin-point growth, re-incubating. On IV Ceftriaxone Denies additional urologic concerns today. Review of Systems Constitutional: as per Subjective / HPI; no fever and no chills Gastrointestinal: as per Subjective / HPI; no nausea and no vomiting Genitourinary: + as per Subjective / HPI Physical Exam Constitutional: well developed and well nourished; no acute distress and not ill appearing Respiratory: normal respiratory effort and able to speak in complete sentences; no respiratory distress and no audible wheezes Gastrointestinal (Abdomen): Inspection/Auscultation: abdomen normal to inspection; abdomen not distended Percussion/Palpation: abdomen soft; abdomen nontender and no guarding Psychiatric: Orientation: alert, oriented x 3 and cooperative Affect: euthymic affect Genitourinary: no CVA tenderness Shahid catheter patent/intact, draining clear yellow urine without clots. Results & Data ([facility]) Vital Signs (Past 12 Hours) Vital Signs Temp Pulse Pulse Resp BP Pulse Ox 10/20/20 04:33 36.8 C 70 18 119/71 94 10/20/20 03:52 70 18 93 10/20/20 00:23 80 10/20/20 00:06 77 20 110/63 96 10/19/20 23:03 76 95 PG Care Time/CCT Total # of Minutes Spent Total Time Spent with Patient: Total time spent is greater than 50% in coordination of care (as documented) at patient's floor/unit and/or counseling patient: Coding Level of Care Code 59445 Subseq Hosp Care Lvl 2 Diagnoses Gross hematuria R31.0
[2020-10-20] MEDS: DULoxetine HCL 30 MG CAP PO SCH (08:21)
[2020-10-20] MEDS: PANTOprazole 40 MG TAB PO SCH (08:22)
[2020-10-20] MEDS: CHOLECALCIFEROL 1,000 UNITS 25 MCG TAB PO SCH (08:22)
[2020-10-20] MEDS: METOPROLOL SUCC 25MG EXT REL TAB PO SCH (08:22)
[2020-10-20] MEDS: ASPIRIN 81 MG ECTAB PO SCH (08:22)
[2020-10-20] MEDS: POLYETHYLENE (MIRALAX) 17 GM PACK PO SCH (08:22)
[2020-10-20] MEDS: FOLIC ACID 1 MG TAB PO SCH (08:23)
[2020-10-20] MEDS: CETIRIZINE HCL 10 MG TABLET PO SCH (08:23)
[2020-10-20] MEDS: ROSUVASTATIN CALCIUM 20 MG TAB PO SCH (08:23)
[2020-10-20] MEDS: DUTASTERIDE: ORDER AWAITING ACTION SCH ×3 (08:23→23:31)
[2020-10-20] MEDS: TAMSULOSIN HCL 0.4 MG CAP PO SCH (08:23)
[2020-10-20] MEDS: INSULIN ASPART 100 UNITS/ML 3 ML PEN SC SCH ×4 (08:26→20:54)
[2020-10-20] MEDS: METHENAMINE HIPPURATE 1 GM TAB PO SCH ×2 (08:29→21:09)
[2020-10-20] MEDS ORDERED: WARFARIN SOD 2.5 MG TAB PO ONE (17:15)
--- NOTE | 2020-10-20 17:18 | Hospitalist Progress Note ---
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 Hematuria and chronic UTI due to Chronic Intermittent Straight Catheterizations in the setting of elevated INR Hgb 16 --> 10.7. INR 4.2 on admission Received 2.5mg IV vit K in ED. urology on board 22 caude zuniga placed, bladder irrigated with improvement, urine color improving Case discussed with urology, No plan for any surgical intervention Hgb stable at 9.4 Urine cx grew multiple organisms mostly contamination Rocephin was discontinued Generalized weakness Continue PT/OT Fall precaution (3) Elevated INR: INR 4.2 on admission Received 2.5mg IV vit K in ED. Hematuria resolved Will resume Coumadin today Follow up with the Coumadin clinic (4) Chronic urinary tract infection: BPH, Chronic urinary retention, Chronic Intermittent Cath Urine cx grew multiple organisms mostly contamination Rocephin was discontinued (5) Hematoma of iliopsoas muscle: CT abd/pelvis showed expansion of the right iliopsoas musculature with significant surrounding inflammation. This extends from the bony pelvis into the groin, and likely represents muscular strain with intramuscular hemorrhage. A nonspecific or possibly infectious myositis could appear similar and clinical correlation will be essential. Repeat US in today shows no fluid collection, leg is improving - consult PT Hgb stable (6) Coronary artery disease: Continue metoprolol, Crestor Stable (7) Hypertension: Continue metoprolol Amlodipine and Losartan have been on hold due to low BP Continue monitor BP (8) CVA (cerebral vascular accident): hx of CVA 07/2017 occipital; 12/2017 L thalamic, embolic An asa, statin Will resume coumadin today (9) T2DM (type 2 diabetes mellitus): a1c 6.4 not on any hypoglycemics, BSG 128 novolog SS per protocol If BSG remains stable today will d/c novolog and reduce freq of accuchecks (10) PAF (paroxysmal atrial fibrillation): continue metoprolol resume warfarin, monitor INR (11) Thoracic aortic aneurysm: follows [facility] cardiology recent echo 08/2020 EF 55%, moderate inferior/posterior wall motion abnormality with hypokinesis, grade 1 diastolic dysfunction, mild AVR, MR and TR, aortic root enlarged 5.0 cm, ascending aorta enlarged 4.8 cm, unchanged from 04/2019 exam (12) Sleep apnea: Cpap at HS Dvt ppx: SCD/TEDS, no chemical prophylaxis in setting of hematuria Dispo: Possible discharge tomorrow PCP: Aidan FULL CODE Admission and Anticipated Discharge Date Admission Date: October 19, 2020 Subjective Pt was seen and examined for follow up of hematuria Lying in bed with no distress Pt said that he feels much better He said that his urine is cleared He said that the pain in his right thigh improves Pt said that he hopes that he does not have to go home with the zuniga catheter Denies any chest pain, palpitation, dizziness and SOB Review of Systems Review of Systems: All systems reviewed & are unremarkable except as noted in Subjective Physical Exam Physical Exam: General- No acute distress Head- atraumatic Eyes- PERRL, EOMI, ENT- oropharynx clear Neck- supple, no JVD Lungs- clear to auscultation Heart- regular rhythm; no murmur Abdomen- normal bowel sounds, soft, nontender Extremities- no calf tenderness Neuro- alert, oriented x 3; PERRL, EOMI; no facial palsy; no dysarthria Skin- warm & dry Results & Data Results & Data ([facility]) Vital Signs (Past 12 Hours) Vital Signs Temp Pulse Resp BP Pulse Ox 10/20/20 15:51 36.9 C 86 18 123/70 92 10/20/20 11:49 36.7 C 82 18 133/79 93 10/20/20 07:55 36.9 C 71 18 94/56 L 93
[2020-10-21 07:40] LABS: Basophils # (auto) 0.01 K/uL (0-0.2); Basophils % (auto) 0.1 %; Eosinophils # (auto) 0.22 K/uL (0-0.5); Eosinophils % (auto) 2.8 %; Hematocrit (blood only) 30.3 % (42-52); Hemoglobin 9.9 g/dL (14.0-18.0); Immature Granulocytes # (auto) 0.03 K/uL (0.00-0.02); Immature Granulocytes % (auto) 0.4 %; Lymphocytes # (auto) 1.17 K/uL (1.2-3.4); Lymphocytes % (auto) 14.7 %; Mean Corpuscular Hemoglobin 29.6 pg (25-34); Mean Corpuscular Hgb Conc 32.7 g/dL (32-36); Mean Corpuscular Volume 90.7 fL (80-100); Mean Platelet Volume 9.8 fL (7.4-10.4); Monocytes # (auto) 0.66 K/uL (0.11-0.59); Monocytes % (auto) 8.3 %; Neutrophils # (auto) 5.89 K/uL (1.4-6.5); Neutrophils % (auto) 73.7 %; Platelet Count 258 K/uL (130-400); RDW Coefficient of Variation 13.8 % (11.5-14.5); RDW Standard Deviation 45.4 fL (36.4-46.3); Red Blood Count 3.34 M/uL (4.7-6.1); White Blood Count 7.98 K/uL (4.8-10.8)
[2020-10-21 07:54] LABS: Prothrombin Time 10.3 Seconds (9.0-12.0)
[2020-10-21 08:12] LABS: BUN Creatinine Ratio 21.9 (10-20); Calcium 8.3 mg/dl (8.5-10.1); Creatinine Clr Calc Pharmacy 83.3 ml/min; Est GFR (African American) 94.5; Est GFR (Non-African American) 81.5
--- NOTE | 2020-10-21 08:58 | Urology Progress Note ---
Date of Service October 21, 2020 Assessment & Plan (1) Gross hematuria: 80 year-old male patient, with multiple comorbidities, admitted with gross hematuria, elevated INR, and anemia. -History of BPH with urinary obstruction, requiring CIC. -Plan of care reviewed with Dr. Haywood. -Patient remains afebrile. -Labs reviewed - white count normal, hemoglobin this morning 9.9 (previously 9.4). -Zuniga catheter intact, draining clear yellow urine. -Urine culture with low counts mixed probable skin roro -Maintain Zuniga catheter, can irrigate bladder PRN pain/clots/retention. -Recommend continue zuniga catheter on discharge until follow-up with urology -Will arrange outpatient follow-up with urology for possible voiding trial next week presuming urine remains clear -Continue with supportive care and antibiotic therapy. Continue to monitor H&H closely. -Thank you for allowing us to participate in the acute care of Mr. Morfin. Please reconsult us with additional questions, concerns or changes in patient status. Admission and Anticipated Discharge Date Admission Date: October 19, 2020 Subjective Pt examined at bedside. He is awake, alert, and comfortable. Currently denies pain. Denies bladder pain/pressure. Zuniga catheter intact/patent, draining clear, yellow urine. No fevers or chills. No nausea or vomiting. Has been OOB without dizziness/lightheadedness. Chart review: Afebrile Wbc 7.98 Hgb 9.9 (previously 9.4 ) Creatinine 0.90 Urine culture with low counts mixed probable skin roro Denies additional urologic concerns today. Review of Systems Constitutional: as per Subjective / HPI Gastrointestinal: as per Subjective / HPI Genitourinary: + as per Subjective / HPI Physical Exam Constitutional: well developed and well nourished; no acute distress and not ill appearing Respiratory: no respiratory distress and no labored breathing Cardiovascular: Extremities: no calf tenderness Gastrointestinal (Abdomen): Percussion/Palpation: abdomen soft; abdomen nontender and no guarding Neurologic: awake Psychiatric: A+Ox3, euthymic affect Orientation: cooperative Genitourinary: no CVA tenderness Zuniga catheter patent/intact, draining clear yellow urine. Results & Data ([facility]) Vital Signs (Past 12 Hours) Vital Signs Temp Pulse Pulse Resp BP Pulse Ox 10/21/20 08:00 36.8 C 73 18 123/74 93 10/21/20 03:21 36.9 C 88 18 106/62 93 10/21/20 01:55 75 18 91 10/21/20 00:04 69 10/20/20 23:51 37.1 C 69 18 125/73 95 10/20/20 22:44 71 18 90 PG Care Time/CCT Total # of Minutes Spent Total Time Spent with Patient: Total time spent is greater than 50% in coordination of care (as documented) at patient's floor/unit and/or counseling patient: Coding Level of Care Code 49817 Subseq Hosp Care Lvl 2 Diagnoses Gross hematuria R31.0
[2020-10-21] MEDS: METHENAMINE HIPPURATE 1 GM TAB PO SCH (09:17)
[2020-10-21] MEDS: DUTASTERIDE: ORDER AWAITING ACTION SCH (09:17)
[2020-10-21] MEDS: ROSUVASTATIN CALCIUM 20 MG TAB PO SCH (09:17)
[2020-10-21] MEDS: METOPROLOL SUCC 25MG EXT REL TAB PO SCH (09:19)
[2020-10-21] MEDS: FOLIC ACID 1 MG TAB PO SCH (09:20)
[2020-10-21] MEDS: PANTOprazole 40 MG TAB PO SCH (09:20)
[2020-10-21] MEDS: TAMSULOSIN HCL 0.4 MG CAP PO SCH (09:20)
[2020-10-21] MEDS: ASPIRIN 81 MG ECTAB PO SCH (09:20)
[2020-10-21] MEDS: CETIRIZINE HCL 10 MG TABLET PO SCH (09:20)
[2020-10-21] MEDS: CHOLECALCIFEROL 1,000 UNITS 25 MCG TAB PO SCH (09:21)
[2020-10-21] MEDS: DULoxetine HCL 30 MG CAP PO SCH (09:22)
[2020-10-21] MEDS: POLYETHYLENE (MIRALAX) 17 GM PACK PO SCH (09:24)
[2020-10-21] MEDS: INSULIN ASPART 100 UNITS/ML 3 ML PEN SC SCH ×2 (09:26→14:26)
--- NOTE | 2020-10-21 14:06 | Hospitalist Progress Note ---
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 Hematuria and chronic UTI due to Chronic Intermittent Straight Catheterizations in the setting of elevated INR Hgb 16 --> 10.7. INR 4.2 on admission Received 2.5mg IV vit K in ED. urology on board 22 caude zuniga placed, bladder irrigated with improvement Case discussed with urology, No plan for any surgical intervention urine color has been cleared Hgb stable at 9.9 Pt does not want to go home with the zuniga cath, will do voiding trial If fails will place zuniga cath and discharge home with it Urology will arrange outpatient follow-up with urology for possible voiding trial next week presuming urine remains clear If pt discharge without the zuniga cath, will recommended to seek medical help in the ER if develops any urinary retention (ER can place a zuniga, then discharge him) Urine cx grew multiple organisms mostly contamination Rocephin was discontinued Generalized weakness Continue PT/OT Fall precaution (3) Elevated INR: INR 4.2 on admission Received 2.5mg IV vit K in ED. Hematuria resolved Continue Coumadin daily Follow up with the [facility] (4) Chronic urinary tract infection: BPH, Chronic urinary retention, Chronic Intermittent Cath Urine cx grew multiple organisms mostly contamination Rocephin was discontinued (5) Hematoma of iliopsoas muscle: CT abd/pelvis showed expansion of the right iliopsoas musculature with significant surrounding inflammation. This extends from the bony pelvis into the groin, and likely represents muscular strain with intramuscular hemorrhage. A nonspecific or possibly infectious myositis could appear similar and clinical correlation will be essential. Repeat US in today shows no fluid collection, leg is improving - consult PT Hgb stable (6) Coronary artery disease: Continue metoprolol, Crestor Stable (7) Hypertension: Continue metoprolol Amlodipine and Losartan have been on hold due to low BP Continue monitor BP (8) CVA (cerebral vascular accident): hx of CVA 07/2017 occipital; 12/2017 L thalamic, embolic An asa, statin Will resume coumadin today (9) T2DM (type 2 diabetes mellitus): a1c 6.4 not on any hypoglycemics, BSG 128 novolog SS per protocol If BSG remains stable today will d/c novolog and reduce freq of accuchecks (10) PAF (paroxysmal atrial fibrillation): continue metoprolol Continue warfarin, monitor INR (11) Thoracic aortic aneurysm: follows [facility] cardiology recent echo 08/2020 EF 55%, moderate inferior/posterior wall motion abnormality with hypokinesis, grade 1 diastolic dysfunction, mild AVR, MR and TR, aortic root enlarged 5.0 cm, ascending aorta enlarged 4.8 cm, unchanged from 04/2019 exam (12) Sleep apnea: Cpap at HS Dvt ppx: SCD/TEDS, no chemical prophylaxis in setting of hematuria Dispo: Possible discharge today PCP: Aidan FULL CODE Admission and Anticipated Discharge Date Admission Date: October 19, 2020 Subjective Pt was was seen and examined for follow up of hematuria Lying in bed with no distress Urine is clear through the zuniga cath Pt said that he feels fine He does not want to go home with zuniga Zuniga removed and will do a void trial Pt would like to go home today Denies any chest pain, palpitation, dizziness and SOB Review of Systems Review of Systems: All systems reviewed & are unremarkable except as noted in Subjective Physical Exam Physical Exam: General- No acute distress Head- atraumatic Eyes- PERRL, EOMI, ENT- oropharynx clear Neck- supple, no JVD Lungs- clear to auscultation Heart- regular rhythm; no murmur Abdomen- normal bowel sounds, soft, nontender Extremities- no calf tenderness Neuro- alert, oriented x 3; PERRL, EOMI; no facial palsy; no dysarthria Skin- warm & dry Results & Data Results & Data ([facility]) Vital Signs (Past 12 Hours) Vital Signs Temp Pulse Resp BP Pulse Ox 10/21/20 11:16 36.7 C 73 18 143/84 H 96 10/21/20 08:00 36.8 C 73 18 123/74 93 10/21/20 03:21 36.9 C 88 18 106/62 93
[2020-10-21] MEDS ORDERED: WARFARIN SOD 2.5 MG TAB PO SCH (16:00)
--- NOTE | 2020-10-25 00:50 | Discharge Summary ---
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 Patient follows with [facility] urology and was last seen 09/30/20 and intermittently straight caths every evening secondary to BPH with severe urinary urgency and frequency. Of significance in the past he did have elevated PSA of 17 with negative prostate biopsies. He had subsequent greenlight laser prostatectomy but only gave him symptomatic relief of his urinary symptoms. Again follows urology closely. His last straight catheterization was Sunday evening. When he woke up Sunday with urination he developed hematuria. His hematuria has been progressive although did improve slightly yesterday with clearing of urine. When he woke up this morning he was passing bright red blood and clots. He also was lightheaded, dizzy and slightly diaphoretic and therefore presented to ED. He states occasionally he has got hematuria in past secondary to straight catheterization but never lasted this long. He denies any fever, chills, sweats, syncope, change in vision, change in hearing, chest pain, shortness of breath, palpitations, nausea, vomiting, abdominal pain, dysuria, melena or he matochezia. Patient does take Coumadin secondary to history of PAF and history of occipital and left thalamic CVA. He is without residual deficit from CVA. He does have a loop recorder in place. He also has history of ABDULLAHI which he is compliant with CPAP. He has significant history of CAD but is currently without ischemic complaints. He does follow closely with [facility] cardiology. In ED patient remained hemodynamically stable although tachycardic. His hemoglobin was 10.7 today which is significant drop from July 2015 16.3. His INR was 4.2. His WBC was 10.16, sodium 135, K4.1, BUN 17, creatinine 1.03. Urinalysis consistent with red urine with multiple RBCs, WBCs and +1 bacteria. Of significance patient did have urine culture in September which grew alpha strep. CT abdomen pelvis currently pending. He did receive 2.5 mg IV vitamin K. Admission Exam Per Admitting Provider Constitutional: WD/WN, vitals as above, NAD, sitting up in bed, pleasant, conversing easily, did get lightheaded with leaning forward Head: Normocephalic, Atraumatic Eyes: PERRL, conjunctivae normal, anicteric sclerae ENMT: external ear and nose normal, oropharynx normal Neck: trachea midline, no thyromegaly normal visual inspection Respiratory: normal respiratory effort, lungs clear to auscultation, no wheeze, rales, rhonchi. Normal insp/exp effort, no accessory muscle use Cardiovascular: RRR, no murmur, no edema Vessels: no JVD or carotid bruit Chest: normal inspection of chest Abdomen: normal bowel sounds, soft, nontender, no hepatosplenomegaly Musculoskeletal: no cyanosis or clubbing, extremities motor strength 5/5 Skin: no rashes, warm and dry normal turgor Neurologic: PERRL, EOMI, accommodation nl, no face palsy, no dysarthria CN's II-XI intact bilaterally and moves all extremities Psychiatric: A+Ox3, euthymic affect Lymphatic: no cervical or axillary lymphadenopathy : deferred Principal Diagnosis Gross hematuria Acute blood loss anemia Generalized weakness Elevated INR: Chronic urinary tract infection: Chronic urinary retention Coronary artery disease: Hypertension: CVA (cerebral vascular accident): T2DM (type 2 diabetes mellitus): PAF (paroxysmal atrial fibrillation): Thoracic aortic aneurysm: Sleep apnea: Discharge Exam Gross hematuria Acute blood loss anemia Generalized weakness Elevated INR: Chronic urinary tract infection: Chronic urinary retention Coronary artery disease: Hypertension: CVA (cerebral vascular accident): T2DM (type 2 diabetes mellitus): PAF (paroxysmal atrial fibrillation): Thoracic aortic aneurysm: Sleep apnea: Discharge Data Allergies Allergy/AdvReac Type Severity Reaction Status Date / Time omeprazole Allergy Unknown "SENSITIVIT Verified 10/18/20 08:21 Y" propoxyphene Allergy Unknown "SENSITIVIT Verified 10/18/20 08:21 Y" acetaminophen Allergy Verified 10/18/20 08:21 [From Joni] Consultations 10/18/20 09:37 ED Decision to Admit Stat 10/18/20 09:51 Consult Urology Routine Ordered Studies 10/18/20 09:05 CT abd pelvis IV con only Stat 10/19/20 09:30 US soft tissue groin Routine ULTRASOUND RIGHT GROIN NONVASCULAR CLINICAL HISTORY: Right iliopsoas hemorrhage. COMPARISON STUDY: Pelvic CT dated 10/18/2020. FINDINGS: Real-time grayscale sonography of the right groin is performed. The inflammatory stranding and presumed intramuscular hemorrhage in the right iliopsoas muscle seen by CT is not apparent by ultrasound. No organized fluid collection/hematoma is identified. IMPRESSION: There is no organized fluid collection/hematoma identified in the right groin by ultrasound. See above. Electronically signed by: Tex Serrano M.D. 10/19/2020 9:55 AM Dictated: 10/19/20952Transcribed: 10/19/20952 CT SCAN OF THE ABDOMEN AND PELVIS WITH IV CONTRAST CLINICAL HISTORY: Hematuria. Right lower quadrant abdominal pain. COMPARISON STUDY: Abdominal CT dated 08/14/2019. TECHNIQUE: Following the IV administration of 93 cc of Optiray 320, CT scan of the abdomen and pelvis is performed from the lung bases to the proximal femora. Images are reviewed in the axial, sagittal, and coronal planes. IV contrast was administered without complication. A dose lowering technique was utilized adh ering to the principles of ALARA. CT DOSE: 932.04 mGy.cm FINDINGS: Lung bases: The heart is enlarged and without pericardial effusion. The coronary arteries are densely calcified. There is aneurysmal dilatation of the ascending thoracic aorta which measures up to 5 cm in diameter. A calcified nodule in the right lower lobe is unchanged. There is mild bibasilar scarring/atelectasis. There is trace right pleural effusion. No airspace consolidation is seen typical for pneumonia. A 7.5 cm lipoma is seen in the left chest wall on image #17. There is a small hiatal hernia. Liver: The contrast-enhanced liver is normal in size, contour, and attenuation. There is no intrahepatic biliary ductal dilatation. The hepatic veins and portal veins are patent. Gallbladder: Unremarkable. Spleen: Normal in size and attenuation. 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 The pancreas is moderately atrophic and otherwise grossly unremarkable. Adrenal glands: A 1.4 cm right adrenal adenoma is unchanged. The left adrenal gland is normal in appearance. Kidneys: The contrast enhanced kidneys demonstrate mild cortical atrophy and are without hydronephrosis. The kidneys enhance symmetrically. A 2 cm cyst is noted in the interpolar left kidney. Additional subcentimeter cortical hypodensities also likely represent cysts but are too small for definitive characterization. Abdominal vasculature: The abdominal aorta is normal in course and caliber noting moderate to advanced atherosclerotic calcification. Bowel: Mild to moderate fecal retention is seen throughout the colon. There is no bowel obstruction. The appendix is well-visualized and normal. Peritoneum: There is no intraperitoneal free air or abdominal ascites. There is a fat-containing umbilical hernia. Lymphadenopathy: None. Pelvic viscera: The prostate gland is enlarged and heterogeneous, measuring 5.2 cm in transverse diameter. There is median lobe hypertrophy. There is hyperdense material within the bladder lumen, likely representing blood clots. The bladder is distended, and the wall appears mildly thickened and trabeculated. There are bilateral fat-containing inguinal hernias, left larger than right. Inflammatory change is identified in the right groin centered around the iliopsoas musculature. There is expansion of the right iliopsoas musculature, greatest anterior to the right hip. Skeletal structures: The skeletal structures are osteopenic. There are chronic compression deformities of T12 and L1. There is advanced multilevel spondylosis with postlumpectomy change throughout the lumbar spine. No lytic or blastic lesions are seen. IMPRESSION: 1. Prostatomegaly with evidence of chronic bladder outlet obstruction. 2. Large blood clots are seen within the bladder lumen. Consider precautionary ultrasound in 1-2 months time to exclude underlying bladder lesion. 3. There is expansion of the right iliopsoas musculature with significant surrounding inflammation. This extends from the bony pelvis into the groin, and likely represents muscular strain with intramuscular hemorrhage. A nonspecific or possibly infectious myositis could appear similar and clinical correlation will be essential. 4. Cardiomegaly and trace right pleural effusion. 5. There is aneurysmal dilatation of the ascending thoracic aorta which measures up to 5 cm. Consider nonemergent vascular surgical follow-up. 6. Additional findings as above. ACT 112: Negative or not required by law. Electronically signed by: Tex Serrano M.D. 10/18/2020 12:19 PM Dictated: 10/18/20 1205Transcribed: 10/18/20 1205 XR hip RT 2V w pelvis HISTORY: 80 years-old Male pain R hip chronic right hip pain without reported trauma COMPARISON: CT abdomen and pelvis 08/14/2019 TECHNIQUE: AP view of the pelvis with 2 views of the right hip FINDINGS: Mild left with mild to moderate right hip osteoarthritis. No acute fracture, dislocation or avascular necrosis. Vascular calcifications. Surgical clips project over the lumbosacral junction. IMPRESSION: 1. No acute fracture or dislocation. 2. Mild to moderate right hip osteoarthritis. ACT 112: Negative or not required by law. The above report was generated using voice recognition software. It may contain grammatical, syntax or spelling errors. Electronically signed by: Abundio Drake M.D. 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 Hematuria and chronic UTI due to Chronic Intermittent Straight Catheterizations in the setting of elevated INR Hgb 16 --> 10.7. INR 4.2 on admission Received 2.5mg IV vit K in ED. urology on board 22 caude zuniga placed, bladder irrigated with improvement Case discussed with urology, No plan for any surgical intervention urine color has been cleared Hgb stable at 9.9 Pt does not want to go home with the zuniga cath, will do voiding trial If fails will place zuniga cath and discharge home with it Urology will arrange outpatient follow-up with urology for possible voiding trial next week presuming urine remains clear If pt discharge without the zuniga cath, will recommended to seek medical help in the ER if develops any urinary retention (ER can place a zuniga, then discharge him) Urine cx grew multiple organisms mostly contamination Rocephin was discontinued Generalized weakness Continue PT/OT Fall precaution (3) Elevated INR: INR 4.2 on admission Received 2.5mg IV vit K in ED. Hematuria resolved Continue Coumadin daily Follow up with the [facility] (4) Chronic urinary tract infection: BPH, Chronic urinary retention, Chronic Intermittent Cath Urine cx grew multiple organisms mostly contamination Rocephin was discontinued (5) Hematoma of iliopsoas muscle: CT abd/pelvis showed expansion of the right iliopsoas musculature with significant surrounding inflammation. This extends from the bony pelvis into the groin, and likely represents muscular strain with intramuscular hemorrhage. A nonspecific or possibly infectious myositis could appear similar and clinical correlation will be essential. Repeat US in today shows no fluid collection, leg is improving - consult PT Hgb stable (6) Coronary artery disease: Continue metoprolol, Crestor Stable (7) Hypertension: Continue metoprolol Amlodipine and Losartan have been on hold due to low BP Continue monitor BP (8) CVA (cerebral vascular accident): hx of CVA 07/2017 occipital; 12/2017 L thalamic, embolic An asa, statin Will resume coumadin today (9) T2DM (type 2 diabetes mellitus): a1c 6.4 not on any hypoglycemics, BSG 128 novolog SS per protocol If BSG remains stable today will d/c novolog and reduce freq of accuchecks (10) PAF (paroxysmal atrial fibrillation): continue metoprolol Continue warfarin, monitor INR (11) Thoracic aortic aneurysm: follows [facility] cardiology recent echo 08/2020 EF 55%, moderate inferior/posterior wall motion abnormality with hypokinesis, grade 1 diastolic dysfunction, mild AVR, MR and TR, aortic root enlarged 5.0 cm, ascending aorta enlarged 4.8 cm, unchanged from 04/2019 exam (12) Sleep apnea: Cpap at HS Dvt ppx: SCD/TEDS, no chemical prophylaxis in setting of hematuria Dispo: Possible discharge today PCP: Aidan FULL CODE Total Time Total Time Spent Total Time Spent (In Minutes): 50 minutes Total Time Includes: Examination of the Patient, Discharge Planning, Medication Reconciliation, Communication With Other Providers and Other Discharge Plan Discharge Items Patient Disposition: Home - Self-Care Reason For Visit: GROSS HEMATURIA,ANEMIA,SUPRATHERAPEUTIC INR Discharge Diagnosis: Gross hematuria Acute blood loss anemia Generalized weakness Elevated INR: Chronic urinary tract infection: Chronic urinary retention Coronary artery disease: Hypertension: CVA (cerebral vascular accident): T2DM (type 2 diabetes mellitus): PAF (paroxysmal atrial fibrillation): Thoracic aortic aneurysm: Sleep apnea: Activity: Resume your previous activity Non-emergency contact: Primary Care Provider and Urologist Call non-emergency contact if: you have any medication questions and your temperature is above 101 Follow-up/Referrals: Randy Bermudez DO [Primary Care Provider] - (Date & Time 10/25/2020 3:00 PM Provider Randy Bermudez DO Department General Internal Medicine [facility] ) Diet: Heart Healthy Addtl Attending Provider Instructions: Follow up with your primary care provider Dr. Bermudez on 10/25/2020 at3:00 PM Follow up with your urology next week (please call for the appointment) Follow up with the coumadin clinic Advised to seek medical attention if develops any urinary retention ( ER can place a zuniga if he has urinary retention, then discharge him) Pending Studies at Discharge: No Stand-Alone Forms: My [employer], Smoking Cessation Medications and DC Order Prescriptions: Continued dutasteride 0.5 mg capsule 0.5 mg PO DAILY Qty: 90 RF: 3 methenamine hippurate 1 gram tablet 1 gm PO Q12H Qty: 60 RF: 8 amlodipine 5 mg tablet 5 mg PO DAILY RF: 0 losartan 50 mg tablet 50 mg PO BID RF: 0 pantoprazole 40 mg tablet,delayed release (DR/EC) 40 mg PO DAILY RF: 0 metoprolol succinate 25 mg tablet extended release 24 hr 25 mg PO DAILY RF: 0 rosuvastatin 20 mg tablet 20 mg PO DAILY RF: 0 warfarin 2.5 mg tablet 2.5 mg PO QPM RF: 0 tamsulosin 0.4 mg capsule 0.4 mg PO DAILY RF: 0 nitroglycerin 0.4 mg Tablet, Sublingual 0.4 mg sublingual UD PRN (Reason: Chest Pain) RF: 0 cetirizine [Zyrtec] 10 mg Tablet 10 mg PO DAILY RF: 0 aspirin 81 mg Tablet,Delayed Release (Dr/Ec) 81 mg PO DAILY RF: 0 folic acid 1 mg Tablet 1 mg PO DAILY RF: 0 polyethylene glycol 3350 [Miralax] 17 gram/dose Powder 17 g PO DAILY RF: 0 lorazepam 1 mg tablet 0.5 mg PO PM PRN (Reason: Insomnia) RF: 0 cholecalciferol (vitamin D3) [Vitamin D3] 25 mcg (1,000 unit) Tablet 25 mcg PO DAILY RF: 0 methylcellulose (laxative) 500 mg Tablet 500 mg PO DAILY PRN (Reason: Constipation) RF: 0 duloxetine 30 mg Capsule,Delayed Release(Dr/Ec) 30 mg PO DAILY RF: 0 Discharge Orders: Discharge Order (Routine); Ordered 10/21/20 Ordered By: Silvio Griggs/Other Patient Handouts: High Blood Sugar (Hyperglycemia), Hypoglycemia (Low Blood Sugar), Managing Type 2 Diabetes, Managing Diabetes: The A1C Test Admission Data Admit Date/Time: 10/19/20 07:26 Attending Provider: Silvio Strauss Admit Provider: Chriss Tabor Primary Care Provider: Randy Bermudez Other Providers: Sandro Maxwell ; Chriss Tabor Other Interventions: Discharge Summary Assessment (RN) Last Done: 10/21/20 14:51
--- NOTE | 2020-10-28 08:03 | Coding Query ---
CODING QUERY To promote full compliance with coding requirements relating to patient care, provider participation is requested in all cases of cardroom supervisor uncertainty. Please assist us with the question(s) below: Coding Question(s): This patient was admitted with gross hematuria, CIC, and supratherapeutic INR on coumadin. Please indicate below in your clinical opinion the etiology of the patient's gross hematura. Thank you. Physician's Response(s): Possible related to intermittent cath in the seeting of elevated INR Thank you Tawnya Watkins Principal Diagnosis: "that condition established after study, to be chiefly responsible for occasioning the admission of the patient to the hospital for care." Co-Existing Principal Diagnosis: "when two or more diagnoses equally meet the criteria for principal diagnosis as determined by the circumstances of admission, diagnostic work up, and/or therapy provided, and the Alphabetic Index, Tabular List, or another coding guideline does not provide sequencing direction, any one of the diagnoses may be sequenced first." "When the physician has documented what appears to be a current diagnosis in the body of the record, but has not included the diagnosis in the final diagnostic statement, the physician should be asked whether the diagnosis should be added." (Source Coding [facility] 2 QTR90. p3-4) ZENIA
== END 2020-10-21 18:09 | disposition home or self-care (01) | DRG 813 ==
LOC: 2N 07:09 → ED 07:09 → 2N 12:04 → SUATTDRO 10-19 07:26

== ENCOUNTER 2022-04-07 19:54 | Inpatient (IN) ==
[2022-04-07 22:15] LABS: Basophils # (auto) 0.03 K/uL (0-0.2); Basophils % (auto) 0.4 %; Eosinophils # (auto) 0.12 K/uL (0-0.50); Eosinophils % (auto) 1.7 %; Hematocrit (blood only) 37.5 % (40.1-51.0); Hemoglobin 12.7 g/dl (14.0-18.0); Immature Granulocytes # (auto) 0.04 K/uL (0.00-0.02); Immature Granulocytes % (auto) 0.6 %; Lymphocytes # (auto) 0.97 K/uL (1.2-3.4); Lymphocytes % (auto) 13.5 %; Mean Corpuscular Hemoglobin 31.7 pg (25.0-34.0); Mean Corpuscular Hgb Conc 33.9 g/dL (32.0-36.0); Mean Corpuscular Volume 93.5 fL (80.0-100.0); Monocytes # (auto) 0.57 K/uL (0.24-0.82); Monocytes % (auto) 7.9 %; Neutrophils # (auto) 5.48 K/uL (1.4-6.5); Neutrophils % (auto) 75.9 %; Platelet Count 202 K/uL (130-400); RDW Coefficient of Variation 13.6 % (11.5-14.5); RDW Standard Deviation 46.7 fL (36.4-46.3); Red Blood Count 4.01 M/uL (4.63-6.08); White Blood Count 7.21 K/ul (4.8-10.8)
[2022-04-07 22:34] LABS: INR 2.6 (0.9-1.1); Partial Thromboplastin Ratio 1.4; Partial Thromboplastin Time 38.5 Seconds (21.0-31.0); Prothrombin Time 26.5 Seconds (9.0-12.0)
[2022-04-07 22:42] LABS: Albumin Globulin Ratio 2.1 (0.9-2); BUN Creatinine Ratio 33.3 (10-20); Bilirubin,Total 1.4 mg/dl (0.2-1.0); Calcium 8.9 mg/dl (8.5-10.1); Creatinine Clr Calc Pharmacy 97.4 ml/min; Est GFR (African American) 102.8 ml/min; Est GFR (Non-African American) 88.7 ml/min; Globulin 1.9 gm/dl (2.5-4.0); Total Protein 5.9 gm/dl (6.0-8.3)
--- NOTE | 2022-04-07 23:04 | Ultrasound Report ---
ULTRASOUND LEFT THIGH NONVASCULAR CLINICAL HISTORY: Contusion. Hematoma. COMPARISON STUDY: No priors. FINDINGS: Real-time grayscale and color flow sonography of the soft tissues of the left thigh is perf ormed. There is a complex fluid collection in the left groin which measures 12.3 x 4.6 x 5.4 cm in di mension. There is minimal internal flow on color imaging. No additional fluid collection or lesion is seen within the left thigh. IMPRESSION: 1. There is a 12.3 cm complex fluid collection in the left thigh as above. There is a small amount of internal flow which could represent active extravasation. Underlying mass lesion is considered much less likely. Clinical follow-up to resolution is recommended. 2. No additional fluid collection is identified throughout the left thigh. Electronically signed by: Tex Serrano M.D. 04/07/2022 11:00 PM
--- NOTE | 2022-04-07 23:31 | Emergency Department Note ---
History of Present Illness General Chief complaint: Leg Injury/Pain Stated complaint: left leg pain Time Seen by Provider: 04/07/22 21:28 History of Present Illness Maximum Pain Intensity: 3 This 81 yo on coumadin for PE presents to the ER complaining of left thigh hematoma Location: left thigh Quality: bruised Severity: moderate Duration: the other day Timing: Patient twisted the wrong way while cutting the grass and felt a tearing sensation Context: Patient was concerned of the large hematoma and came in. Modifying factors: better with rest; worse with activity Patient denies chest pain, dyspnea, numbness, tingling, localized weakness, hip pain. Home Medications Medication Instructions Recorded Confirmed Type aspirin 81 mg tablet,delayed 81 mg PO QAM 08/14/19 12/09/21 History release cetirizine 10 mg tablet (Zyrtec) 10 mg PO PM 08/14/19 12/09/21 History folic acid 1 mg tablet 1 mg PO QAM 08/14/19 12/09/21 History losartan 50 mg tablet 50 mg PO PM 08/14/19 12/09/21 History metoprolol succinate 25 mg 25 mg PO QAM 08/14/19 12/09/21 History tablet,extended release 24 hr nitroglycerin 0.4 mg sublingual 0.4 mg sublingual UD PRN Chest Pain 08/14/19 12/08/21 History tablet pantoprazole 40 mg tablet,delayed 40 mg PO QAM 08/14/19 12/09/21 History release polyethylene glycol 3350 17 17 g PO DAILY PRN Constipation 08/14/19 12/09/21 History gram/dose oral powder (Miralax) rosuvastatin 20 mg tablet 20 mg PO PM 08/14/19 12/09/21 History tamsulosin 0.4 mg capsule 0.4 mg PO QAM 08/14/19 12/09/21 History warfarin 2.5 mg tablet 2.5 mg PO 6XWK 08/14/19 12/09/21 History cholecalciferol (vitamin D3) 25 25 mcg PO PM 05/22/20 12/09/21 History mcg (1,000 unit) tablet (Vitamin D3) lorazepam 1 mg tablet 0.5 mg PO PM PRN Insomnia 05/22/20 12/08/21 History duloxetine 30 mg capsule,delayed 30 mg PO PM 10/18/20 12/09/21 History release ropinirole 0.25 mg tablet 0.25 mg PO HS 03/11/21 12/09/21 History dutasteride 0.5 mg capsule 0.5 mg PO PM #90 caps 04/20/21 12/09/21 Rx methenamine hippurate 1 gram tablet 1 g PO BID #180 tabs 04/20/21 12/09/21 Rx ferrous sulfate 325 mg (65 mg 325 mg PO QPM 12/05/21 12/09/21 History iron) tablet (Iron (ferrous sulfate)) psyllium husk 3.4 gram/5.4 gram 1 tsp PO DAILY PRN Constipation 12/05/21 12/09/21 History oral powder (Metamucil) warfarin 2.5 mg tablet 5 mg PO WK 12/05/21 12/09/21 History metformin 1,000 mg tablet 1,000 mg PO BID 04/08/22 04/08/22 History Allergies Allergy/AdvReac Type Severity Reaction Status Date / Time propoxyphene Allergy Intermediate Hallucinati Verified 12/09/21 13:33 ng omeprazole Allergy Unknown Unknown Verified 12/09/21 13:33 Past Med/Surg History Medical History Actinic keratosis BPH (benign prostatic hyperplasia) Coronary artery disease follows with Dyslipidemia Hard of hearing History of basal cell carcinoma removed History of pulmonary embolism early , post op complication > Warfarin 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 Poole with [employer]> last checked around October 2020 > unsure of size Urinary retention on occasion, meds help per pt Surgical History History of cardiac cath several > late 1989's early 1999's, last one 2007> no stents any time History of cataract surgery right History of colonoscopy History of esophagogastroduodenoscopy (EGD) last 03/23/21 @ [facility] History of tooth extraction Hx of tonsillectomy Status post lumbar laminectomy Status post recent transurethral resection of prostate Family History Father Prostate cancer Diabetes Heart disease Hypertension Other No family history of adverse response to anesthesia Social History Smoking Status: Never smoker Second Hand Exposure: No; Hx Alcohol Use: No Hx Substance Use: No Preferred Language: Lithuanian Communication Ability: Effective Soil Technologist Required: No Beliefs That Will Affect Care: None marital status: Current Living Situation: Spouse and Family Current Living Situation Comment: Lives with and son current occupational status: retired Feels Safe at Home: Yes Assistive Devices: CPAP and Glasses Review of Systems A total of 10 systems reviewed and were otherwise negative Physical Exam Vital Signs Vital Signs - 24 hr 04/07/22 19:57 04/07/22 21:32 04/08/22 00:41 Temperature 36.7 C Temperature Source Oral Pulse Rate 94 H Pulse Rate [Finger] 66 Pulse Rhythm [Finger] Regular Pulse Strength [Finger] Normal Respiratory Rate 18 18 Respiratory Effort / Characteristics Non-Labored Non-Labored Spontaneous Respiratory Depth Normal Normal Respiratory Pattern Regular Regular Blood Pressure 179/95 H Blood Pressure [Right Arm] 150/88 H Blood Pressure Mean 123 Blood Pressure Mean [Right Arm] 108 Blood Pressure Position [Right Arm] Lying Pulse Oximetry 98 96 Oxygen Delivery Method Room Air Room Air Sepsis Recent Fever Within 48 Hours No Sepsis New/Unexplained Change in Mental Status N/A Sepsis Action Taken by Nursing No Action Required VITALS: Vitals are noted on the nurse's note and reviewed by myself. Vital signs stable. GENERAL: Pleasant gentleman, in no acute distress, nondiaphoretic, well- developed well-nourished. SKIN: Left thigh with very large hematoma, the rest of the skin was without rashes, erythema, edema, or bruising. There is no tenting of the skin. Capil shawn reflex less than 2 seconds. HEAD: Normocephalic atraumatic. EARS: External auditory canals clear, EYES: Pupils equal round and reactive to light and accommodation. Conjunctivae without injection, sclerae without icterus. Extraocular movements intact. NOSE: Patent, turbinates without inflammation or discharge. MOUTH: Mucous membranes moist. Pharynx without erythema or exudate. Uvula midline. Airway patent. Tongue does not deviate. NECK: Supple without nuchal rigidity. No lymphadenopathy. No thyromegaly. Cervical spine is nontender. No JVD. HEART: Regular rate and rhythm LUNGS: Clear to auscultation bilaterally without wheezes, rales or rhonchi. No retractions or accessory muscle use. ABDOMEN: Positive bowel sounds x 4. Normal tympanic percussion. Soft, nontende r, without masses or organomegaly. Villa sign negative. No guarding or rebound tenderness. No CVA tenderness MUSCULOSKELETAL: No muscle atrophy noted. Left thigh tender to palpation, pelvis stable, femur and knee nontender to palpation. Pedal pulses +2 equal present bilateral. NEURO: Patient was alert and oriented to person place and time. Normal sensation to light and sharp touch. No focal neurological deficits. Course Administered Medications Discontinued Medications Phytonadione 10 mg/ Sodium (Chloride) 51 mls @ 102 mls/hr IV ONE STA Stop: 04/08/22 00:36 Last Infusion: 04/08/22 01:10 Dose: 0 mls/hr Documented By: Admin: 04/08/22 00:40 Dose: 102 mls/hr Documented By: DELGADO Losartan Potassium (Losartan Potassium 50 Mg Tab) 50 mg PO NOW STA Stop: 04/08/22 00:01 Last Admin: 04/08/22 00:40 Dose: 50 mg Documented By: DELGADO Phytonadione (Phytonadione 5 Mg Tab) 5 mg PO NOW STA Stop: 04/07/22 23:49 Last Admin: 04/08/22 00:37 Dose: Not Given Documented By: DELGADO Medical Decision Making Medical Records Attestation: I reviewed the patient's medical records. Home Medications Current Medication List: was personally reviewed by me Laboratory Data Attestation: I reviewed the patient's lab results. Result diagrams: 04/07/22 21:55 04/07/22 21:55 Lab Results 04/07/22 04/07/22 04/07/22 Range/Units 21:55 21:55 21:55 WBC 7.21 (4.8-10.8) K/ul RBC 4.01 L (4.63-6.08) M/uL Hgb 12.7 L (14.0-18.0) g/dl Hct 37.5 L (40.1-51.0) % MCV 93.5 (80.0-100.0) fL MCH 31.7 (25.0-34.0) pg MCHC 33.9 (32.0-36.0) g/dL RDW Std Deviation 46.7 H (36.4-46.3) fL RDW Coeff of Argelia 13.6 (11.5-14.5) % Plt Count 202 (130-400) K/uL MPV 10.0 (9.4-12.4) fL Immature Gran % (Auto) 0.6 % Neut % (Auto) 75.9 % Lymph % (Auto) 13.5 % [place] % (Auto) 7.9 % Eos % (Auto) 1.7 % Baso % (Auto) 0.4 % Neut # (Auto) 5.48 (1.4-6.5) K/uL Lymph # (Auto) 0.97 L (1.2-3.4) K/uL [place] # (Auto) 0.57 (0.24-0.82) K/uL Eos # (Auto) 0.12 (0-0.50) K/uL Baso # (Auto) 0.03 (0-0.2) K/uL Immature Gran # (Auto) 0.04 H (0.00-0.02) K/uL PT 26.5 H (9.0-12.0) Seconds INR 2.6 H (0.9-1.1) APTT 38.5 H (21.0-31.0) Seconds PTT Ratio 1.4 Sodium 136 (136-145) mmol/L Potassium 4.0 (3.5-5.1) mmol/L Chloride 104 (98-107) mmol/L Carbon Dioxide 25 (21-32) mmol/L Anion Gap 7 (3-11) BUN 24 H (6-23) mg/dl Creatinine 0.72 (0.6-1.4) mg/dl Est Cr Clr Drug Dosing 97.4 ml/min Est GFR ( Amer) 102.8 ml/min Est GFR (Non-Af Amer) 88.7 ml/min BUN/Creatinine Ratio 33.3 H (10-20) Glucose 104 H (70-99(Fasting)) mg/dl Calcium 8.9 (8.5-10.1) mg/dl Total Bilirubin 1.4 H (0.2-1.0) mg/dl AST 17 (13-39) U/L ALT 16 (7-52) U/L Alkaline Phosphatase 52 (34-104) U/L Total Protein 5.9 L (6.0-8.3) gm/dl Albumin 4.0 (3.4-5.0) gm/dl Globulin 1.9 L (2.5-4.0) gm/dl Albumin/Globulin Ratio 2.1 H (0.9-2) SARS-CoV-2, RNA, NAAT (NEGATIVE) 04/07/22 Range/Units 23:36 WBC (4.8-10.8) K/ul RBC (4.63-6.08) M/uL Hgb (14.0-18.0) g/dl Hct (40.1-51.0) % MCV (80.0-100.0) fL MCH (25.0-34.0) pg MCHC (32.0-36.0) g/dL RDW Std Deviation (36.4-46.3) fL RDW Coeff of Argelia (11.5-14.5) % Plt Count (130-400) K/uL MPV (9.4-12.4) fL Immature Gran % (Auto) % Neut % (Auto) % Lymph % (Auto) % [place] % (Auto) % Eos % (Auto) % Baso % (Auto) % Neut # (Auto) (1.4-6.5) K/uL Lymph # (Auto) (1.2-3.4) K/uL [place] # (Auto) (0.24-0.82) K/uL Eos # (Auto) (0-0.50) K/uL Baso # (Auto) (0-0.2) K/uL Immature Gran # (Auto) (0.00-0.02) K/uL PT (9.0-12.0) Seconds INR (0.9-1.1) APTT (21.0-31.0) Seconds PTT Ratio Sodium (136-145) mmol/L Potassium (3.5-5.1) mmol/L Chloride (98-107) mmol/L Carbon Dioxide (21-32) mmol/L Anion Gap (3-11) BUN (6-23) mg/dl Creatinine (0.6-1.4) mg/dl Est Cr Clr Drug Dosing ml/min Est GFR ( Amer) ml/min Est GFR (Non-Af Amer) ml/min BUN/Creatinine Ratio (10-20) Glucose (70-99(Fasting)) mg/dl Calcium (8.5-10.1) mg/dl Total Bilirubin (0.2-1.0) mg/dl AST (13-39) U/L ALT (7-52) U/L Alkaline Phosphatase (34-104) U/L Total Protein (6.0-8.3) gm/dl Albumin (3.4-5.0) gm/dl Globulin (2.5-4.0) gm/dl Albumin/Globulin Ratio (0.9-2) SARS-CoV-2, RNA, NAAT NEGATIVE (NEGATIVE) Imaging Data Attestation: I personally reviewed and interpreted this imaging study as follows: Radiologist's Impression: Extremity Ultrasound 04/07/22 21:51 ULTRASOUND LEFT THIGH NONVASCULAR CLINICAL HISTORY: Contusion. Hematoma. COMPARISON STUDY: No priors. FINDINGS: Real-time grayscale and color flow sonography of the soft tissues of the left thigh is performed. There is a complex fluid collection in the left groin which measures 12.3 x 4.6 x 5.4 cm in dimension. There is minimal internal flow on color imaging. No additional fluid collection or lesion is seen within the left thigh. IMPRESSION: 1. There is a 12.3 cm complex fluid collection in the left thigh as above. There is a small amount of internal flow which could represent active extravasation. Underlying mass lesion is considered much less likely. Clinical follow-up to resolution is recommended. 2. No additional fluid collection is identified throughout the left thigh. Electronically signed by: Tex Serrano M.D. 04/07/2022 11:00 PM [facility] Narrative Prior records/ancillary studies reviewed. Triage Nursing notes reviewed. Additional history obtained from family. The patient's history was concerning for 5 pain. Differential diagnosis: Etiologies such as musculoskeletal, hematoma, tear, active bleed, dislocation as well as others were entertained. Physical findings: As above. No focal neurologic findings noted. ER treatment provided: Vitamin K On reassessment the patient felt better. Diagnostics interpreted by me: The labs revealed therapeutic INR Mild stable anemia Imaging studies: As above Consultation: A consultation was placed with hospitalist. The case was discussed and diagnostics were reviewed. Patient was admitted to their service. This appears to be consistent with large right thigh hematoma that was still bleeding possibly. Deandre wrap was placed and neurovascular status was checked after placement as intact. Patient is given vitamin K. Medicine is consulted and they will evaluate for admission. By the evaluation outlined above emergent etiologies such as fracture, dislocation, tear, bleed, hematoma, as well as others were deemed relatively unlikely. The pt informed about the findings as listed above. All questions were answered and pleased with the treatment. The chart was completed utilizing Global Active Speech voice recognition software. Grammatical errors, random word insertions, pronoun errors, and incomplete sentences are an occassional consequence of this system due to software limitat ions, ambient noise, and hardware issues. Any formal questions or concerns about the content, text, or information contained within the body of this dictation should be directly addressed to the physician engineering assistant for clarification. Impression & Plan Hematoma of left thigh, Anemia Discharge Plan Visit Data Chief Complaint: Leg Injury/Pain Stated Complaint: left leg pain ED Provider: Norm Cavanaugh ED Midlevel Provider: Alina Cohen Discharge Problem: Hematoma of left thigh, Anemia Patient Disposition: Admitted As Inpatient Condition: Good Forms Stand Alone Forms: My [facility] [place] [employer] Prescriptions Prescriptions: No Action amoxicillin 875 mg tablet 875 mg PO BID 10 Days Qty: 20 0RF methenamine hippurate 1 gram tablet 1 g PO BID Qty: 180 3RF dutasteride 0.5 mg capsule 0.5 mg PO PM Qty: 90 3RF losartan 50 mg tablet 50 mg PO PM pantoprazole 40 mg tablet,delayed release (DR/EC) 40 mg PO QAM metoprolol succinate 25 mg tablet extended release 24 hr 25 mg PO QAM rosuvastatin 20 mg tablet 20 mg PO PM warfarin 2.5 mg tablet 2.5 mg PO 6XWK Label Comments: takes in the am tamsulosin 0.4 mg capsule 0.4 mg PO QAM nitroglycerin 0.4 mg Tablet, Sublingual 0.4 mg sublingual UD PRN (Reason: Chest Pain) cetirizine [Zyrtec] 10 mg Tablet 10 mg PO PM aspirin 81 mg Tablet,Delayed Release (Dr/Ec) 81 mg PO QAM folic acid 1 mg Tablet 1 mg PO QAM polyethylene glycol 3350 [Miralax] 17 gram/dose Powder 17 g PO DAILY PRN (Reason: Constipation) lorazepam 1 mg tablet 0.5 mg PO PM PRN (Reason: Insomnia) cholecalciferol (vitamin D3) [Vitamin D3] 25 mcg (1,000 unit) Tablet 25 mcg PO PM duloxetine 30 mg Capsule,Delayed Release(Dr/Ec) 30 mg PO PM ropinirole 0.25 mg Tablet 0.25 mg PO HS warfarin 2.5 mg Tablet 5 mg PO WK Label Comments: on am ferrous sulfate [Iron (ferrous sulfate)] 325 mg (65 mg iron) Tablet 325 mg PO QPM Metamucil 3.4 gram/5.4 gram Powder 1 tsp PO DAILY PRN (Reason: Constipation) Referrals Referrals: Anurag Mora MD [Primary Care Provider] -
[2022-04-07] MEDS ORDERED: PHYTONADIONE 5 MG TAB PO STA (23:48)
[2022-04-08] MEDS ORDERED: LOSARTAN POTASSIUM 50 MG TAB PO STA
[2022-04-08] MEDS ORDERED: PHYTONADIONE 10 MG in SODIUM CHLORIDE 0.9% 50 ML IV STA (00:07)
--- NOTE | 2022-04-08 02:17 | Emergency Department Note ---
ED Visit Note I have personally evaluated this patient examined him and reviewed the pertinent labs and data. I have discussed the case with Linsey Cohen, the physician assistant store leader and agree with the plan. Please refer to the PA note. This patoient Injured his right leg. On my exam, he has a large hematoma on the calf on ultrasound there is a hematoma there is a small active extravasation. he is on anticoagulation with Coumadin, he was given vitamin K. He is neurologically intact. He will be admitted for observation. . : Hematoma of left thigh Qualifiers: Encounter type: initial encounter Qualified Code(s): S70.12XA - Contusion of left thigh, initial encounter
--- NOTE | 2022-04-08 02:23 | History & Physical Report ---
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 until patient seen by Orthopedics in anticipation of procedural intervention ISS BG goal 1 10-1 40 DVT prophylaxis. SCDs if INR less than 2 while Coumadin on hold Full code Text document was generated using [employer] voice recognition software. It may contain grammatical or spelling errors. Kindly contact undersigned for clarification of any documentation item in question. History of Present Illness Chief Complaint: Left thigh swelling Primary Care Provider: Anurag Mora MD History obtained from the patient, and records. Medical history significant for CAD status post stent, hypertension, hyperlipidemia, hx PAF/hx PE/recurrent CVA/cryptogenic stroke on Coumadin, PVD (thoracic aortic aneurysm),ABDULLAHI on CPAP, BPH/chronic UTI on chronic methenamine Rx, DM2 on oral medications, chronic back pain. Last confinement October 2020 for hematuria. 4 days ago, patient noted left leg discomfort worse on walking after cutting grass the other day. Painful left thigh swelling noted 2 days ago. No recollection of trauma. Usual back pain. Patient denies chest pain, SOB, lightheadedness. Patient consulted ER for evaluation. MEDICAL HISTORY: As above. SURGERIES: back surgery, TURP, cataract surgery FAMILY HISTORY:Dementia, breast cancer, colon cancer, DM, heart disease, skin cancer PERSONAL AND SOCIAL HISTORY: Nonsmoker, no ETOH intake. 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 Allergies Allergy/AdvReac Type Severity Reaction Status Date / Time propoxyphene Allergy Intermediate Hallucinati Verified 12/09/21 13:33 ng omeprazole Allergy Unknown Unknown Verified 12/09/21 13:33 ELINOR Inhibitors AdvReac Cough Verified 04/08/22 02:03 gabapentin AdvReac Nausea Verified 04/08/22 02:03 Home Medications Medication Instructions Recorded Confirmed Type aspirin 81 mg tablet,delayed 81 mg PO QAM 08/14/19 04/08/22 History release cetirizine 10 mg tablet (Zyrtec) 10 mg PO PM 08/14/19 04/08/22 History folic acid 1 mg tablet 1 mg PO QAM 08/14/19 04/08/22 History losartan 50 mg tablet 50 mg PO PM 08/14/19 04/08/22 History metoprolol succinate 25 mg 25 mg PO QAM 08/14/19 04/08/22 History tablet,extended release 24 hr nitroglycerin 0.4 mg sublingual 0.4 mg sublingual UD PRN Chest Pain 08/14/19 04/08/22 History tablet pantoprazole 40 mg tablet,delayed 40 mg PO QAM 08/14/19 04/08/22 History release polyethylene glycol 3350 17 17 g PO DAILY PRN Constipation 08/14/19 04/08/22 History gram/dose oral powder (Miralax) rosuvastatin 20 mg tablet 20 mg PO PM 08/14/19 04/08/22 History tamsulosin 0.4 mg capsule 0.4 mg PO QAM 08/14/19 04/08/22 History warfarin 2.5 mg tablet 2.5 mg PO 6XWK 08/14/19 04/08/22 History cholecalciferol (vitamin D3) 25 25 mcg PO PM 05/22/20 04/08/22 History mcg (1,000 unit) tablet (Vitamin D3) lorazepam 1 mg tablet 0.5 mg PO PM PRN Insomnia 05/22/20 04/08/22 History duloxetine 30 mg capsule,delayed 30 mg PO PM 10/18/20 04/08/22 History release ropinirole 0.25 mg tablet 0.25 mg PO HS 03/11/21 04/08/22 History dutasteride 0.5 mg capsule 0.5 mg PO PM #90 caps 04/20/21 04/08/22 Rx methenamine hippurate 1 gram tablet 1 g PO BID #180 tabs 04/20/21 04/08/22 Rx ferrous sulfate 325 mg (65 mg 325 mg PO QPM 12/05/21 04/08/22 History iron) tablet (Iron (ferrous sulfate)) psyllium husk 3.4 gram/5.4 gram 1 tsp PO DAILY PRN Constipation 12/05/21 04/08/22 History oral powder (Metamucil) warfarin 2.5 mg tablet 5 mg PO WK 12/05/21 04/08/22 History metformin 1,000 mg tablet 1,000 mg PO BID 04/08/22 04/08/22 History Past Med/Surg History Medical History Actinic keratosis BPH (benign prostatic hyperplasia) Coronary artery disease follows with Dyslipidemia Hard of hearing History of basal cell carcinoma removed History of pulmonary embolism early , post op complication > Warfarin History of SCC (squamous cell carcinoma) of skin removed Hypertension Myocardial Infarction early On anticoagulant therapy warfarin daily Pancreatic cyst just monitoring Peripheral neuropathy bilat legs Restless leg syndrome Sleep apnea cpap Stroke 2017 > no residual effects > [facility] > was in therapy for reading for a while, all better now > doesn't see neuro anymore Thoracic aortic aneurysm follows with Dr. Poole with [facility]> last checked around October 2020 > unsure of size Urinary retention on occasion, meds help per pt Surgical History History of cardiac cath several > late 1989's early s, last one 2007> no stents any time History of cataract surgery right History of colonoscopy History of esophagogastroduodenoscopy (EGD) last 03/23/21 @ [facility] History of tooth extraction Hx of tonsillectomy Status post lumbar laminectomy Status post recent transurethral resection of prostate Family History Father Prostate cancer Diabetes Heart disease Hypertension Other No family history of adverse response to anesthesia Social History Smoking Status: Never smoker Second Hand Exposure: No; Hx Alcohol Use: Yes Hx Substance Use: No Preferred Language: Libyan Communication Ability: Effective Multi Punch Operator Required: No Beliefs That Will Affect Care: None marital status: Current Living Situation: Spouse Current Living Situation Comment: Lives with and son current occupational status: retired Feels Safe at Home: Yes Safety Concerns: Feels Safe At This Time Assistive Devices: None Review of Systems Review of Systems: As per HPI, all other systems reviewed and negative Physical Exam Physical Exam: GENERAL: Comfortable, pleasant, slightly hard of hearing, no respiratory distress SKIN: Pallor, warm HEENT: Alopecia, pale palpebral conjunctivae, no ptosis, moist buccal mucosa NECK : Supple, no tenderness CHEST : CTA, no tenderness HEART : RRR, no obvious murmurs ABDOMEN: Some distention, nontender EXTREMITIES : Tender left thigh ecchymotic swelling with surrounding bandage wrap, no other conspicuous deformities noted NEUROLOGIC : Coherent, no facial asymmetry, slightly hard of hearing, gait and stance not assessed Results & Data Results & Data ([facility]) Vital Signs (Past 12 Hours) Vital Signs Temp Pulse Pulse Resp BP BP Pulse Ox 04/08/22 00:41 66 18 150/88 H 96 04/07/22 19:57 36.7 C 94 H 18 179/95 H 98 O2 Del Method 04/08/22 00:41 Room Air 04/07/22 19:57 Room Air Laboratory Results Laboratory Results WBC 7.21 K/ul (4.8-10.8) 04/07/22 21:55 RBC 4.01 M/uL (4.63-6.08) L 04/07/22 21:55 Hgb 12.7 g/dl (14.0-18.0) L 04/07/22 21:55 Hct 37.5 % (40.1-51.0) L 04/07/22 21:55 MCV 93.5 fL (80.0-100.0) 04/07/22 21:55 MCH 31.7 pg (25.0-34.0) 04/07/22 21:55 MCHC 33.9 g/dL (32.0-36.0) 04/07/22 21:55 RDW Std Deviation 46.7 fL (36.4-46.3) H 04/07/22 21:55 RDW Coeff of Argelia 13.6 % (11.5-14.5) 04/07/22 21:55 Plt Count 202 K/uL (130-400) 04/07/22 21:55 MPV 10.0 fL (9.4-12.4) 04/07/22 21:55 Immature Gran % (Auto) 0.6 % 04/07/22 21:55 Neut % (Auto) 75.9 % 04/07/22 21:55 Lymph % (Auto) 13.5 % 04/07/22 21:55 [place] % (Auto) 7.9 % 04/07/22 21:55 Eos % (Auto) 1.7 % 04/07/22 21:55 Baso % (Auto) 0.4 % 04/07/22 21:55 Neut # (Auto) 5.48 K/uL (1.4-6.5) 04/07/22 21:55 Lymph # (Auto) 0.97 K/uL (1.2-3.4) L 04/07/22 21:55 [place] # (Auto) 0.57 K/uL (0.24-0.82) 04/07/22 21:55 Eos # (Auto) 0.12 K/uL (0-0.50) 04/07/22 21:55 Baso # (Auto) 0.03 K/uL (0-0.2) 04/07/22 21:55 Immature Gran # (Auto) 0.04 K/uL (0.00-0.02) H 04/07/22 21:55 PT 26.5 Seconds (9.0-12.0) H 04/07/22 21:55 INR 2.6 (0.9-1.1) H 04/07/22 21:55 APTT 38.5 Seconds (21.0-31.0) H 04/07/22 21:55 PTT Ratio 1.4 04/07/22 21:55 Sodium 136 mmol/L (136-145) 04/07/22 21:55 Potassium 4.0 mmol/L (3.5-5.1) 04/07/22 21:55 Chloride 104 mmol/L (98-107) 04/07/22 21:55 Carbon Dioxide 25 mmol/L (21-32) 04/07/22 21:55 Anion Gap 7 (3-11) 04/07/22 21:55 BUN 24 mg/dl (6-23) H 04/07/22 21:55 Creatinine 0.72 mg/dl (0.6-1.4) 04/07/22 21:55 Est Cr Clr Drug Dosing 97.4 ml/min 04/07/22 21:55 Est GFR ( Amer) 102.8 ml/min 04/07/22 21:55 Est GFR (Non-Af Amer) 88.7 ml/min 04/07/22 21:55 BUN/Creatinine Ratio 33.3 (10-20) H 04/07/22 21:55 Glucose 104 mg/dl (70-99(Fasting)) H 04/07/22 21:55 Calcium 8.9 mg/dl (8.5-10.1) 04/07/22 21:55 Total Bilirubin 1.4 mg/dl (0.2-1.0) H 04/07/22 21:55 AST 17 U/L (13-39) 04/07/22 21:55 ALT 16 U/L (7-52) 04/07/22 21:55 Alkaline Phosphatase 52 U/L (34-104) 04/07/22 21:55 Total Protein 5.9 gm/dl (6.0-8.3) L 04/07/22 21:55 Albumin 4.0 gm/dl (3.4-5.0) 04/07/22 21:55 Globulin 1.9 gm/dl (2.5-4.0) L 04/07/22 21:55 Albumin/Globulin Ratio 2.1 (0.9-2) H 04/07/22 21:55 SARS-CoV-2, RNA, NAAT NEGATIVE (NEGATIVE) 04/07/22 23:36 Impressions Extremity Ultrasound 04/07/22 21:51 ULTRASOUND LEFT THIGH NONVASCULAR CLINICAL HISTORY: Contusion. Hematoma. COMPARISON STUDY: No priors. FINDINGS: Real-time grayscale and color flow sonography of the soft tissues of the left thigh is performed. There is a complex fluid collection in the left groin which measures 12.3 x 4.6 x 5.4 cm in dimension. There is minimal internal flow on color imaging. No additional fluid collection or lesion is seen within the left thigh. IMPRESSION: 1. There is a 12.3 cm complex fluid collection in the left thigh as above. There is a small amount of internal flow which could represent active extravasation. Underlying mass lesion is considered much less likely. Clinical follow-up to resolution is recommended. 2. No additional fluid collection is identified throughout the left thigh. Electronically signed by: Tex Serrano M.D. 04/07/2022 11:00 PM
[2022-04-08] MEDS ORDERED: PROMETHAZINE HCL 12.5 MG in SODIUM CHLORIDE 0.9% 50 ML IV PRN (02:56)
[2022-04-08] MEDS ORDERED: MoRPHine SULFATE 2 MG/ML CARP IV PRN (02:56)
[2022-04-08] MEDS ORDERED: traMADol HCL 50 MG TABLET PO PRN (02:56)
[2022-04-08] MEDS ORDERED: DEXTROSE 50% 50 ML SYRINGE IV PRN (04:15)
[2022-04-08] MEDS ORDERED: POLYETHYLENE (MIRALAX) 17 GM PACK PO PRN (04:15)
[2022-04-08] MEDS ORDERED: GLUCAGON FOR INJ 1 MG VIAL SQ PRN (04:15)
[2022-04-08] MEDS ORDERED: INSULIN ASPART PER UNIT SC SCH (04:15)
[2022-04-08] MEDS ORDERED: CARBOHYDRATES FOR HYPOGLYCEMIA PO PRN (04:15)
[2022-04-08] MEDS ORDERED: GLUCOSE 40% GEL 15 GM TUBE PO PRN (04:15)
[2022-04-08] MEDS ORDERED: GLUCOSE 10 TAB/TUBE PO PRN (04:15)
[2022-04-08] MEDS ORDERED: LORazepam 0.5 MG TAB PO PRN (04:15)
[2022-04-08] MEDS ORDERED: ACETAMINOPHEN 325 MG TAB PO PRN (04:15)
[2022-04-08] MEDS: rOPINIRole HCL 0.25 MG TABLET PO SCH ×2 (05:06→21:29)
[2022-04-08] MEDS ORDERED: SODIUM CHLORIDE 0.9% 500 ML IV ONE (05:48)
[2022-04-08] MEDS ORDERED: Nursing to Pharmacy Communication SCH ×2 (06:15→08:00)
[2022-04-08 06:42] LABS: Basophils # (auto) 0.02 K/uL (0-0.2); Basophils % (auto) 0.3 %; Eosinophils # (auto) 0.12 K/uL (0-0.50); Eosinophils % (auto) 2.1 %; Hematocrit (blood only) 37.7 % (40.1-51.0); Hemoglobin 12.6 g/dl (14.0-18.0); Immature Granulocytes # (auto) 0.02 K/uL (0.00-0.02); Immature Granulocytes % (auto) 0.3 %; Lymphocytes # (auto) 1.05 K/uL (1.2-3.4); Lymphocytes % (auto) 18.2 %; Mean Corpuscular Hemoglobin 31.5 pg (25.0-34.0); Mean Corpuscular Hgb Conc 33.4 g/dL (32.0-36.0); Mean Corpuscular Volume 94.3 fL (80.0-100.0); Mean Platelet Volume 9.8 fL (9.4-12.4); Monocytes # (auto) 0.49 K/uL (0.24-0.82); Monocytes % (auto) 8.5 %; Neutrophils # (auto) 4.07 K/uL (1.4-6.5); Neutrophils % (auto) 70.6 %; Platelet Count 202 K/uL (130-400); RDW Coefficient of Variation 13.7 % (11.5-14.5); RDW Standard Deviation 47.7 fL (36.4-46.3); White Blood Count 5.77 K/ul (4.8-10.8)
[2022-04-08 06:55] LABS: INR 1.6 (0.9-1.1); Prothrombin Time 17.1 Seconds (9.0-12.0)
[2022-04-08 07:20] LABS: Calcium 8.7 mg/dl (8.5-10.1); Creatinine Clr Calc Pharmacy 99.4 ml/min; Est GFR (Non-African American) 89.8 ml/min; Potassium 3.8 mmol/L (3.5-5.1)
[2022-04-08] MEDS: METHENAMINE HIPPURATE 1 GM TAB PO SCH ×2 (08:00→21:29)
[2022-04-08] MEDS: PANTOprazole 40 MG TAB PO SCH (08:01)
[2022-04-08] MEDS: FOLIC ACID 1 MG TAB PO SCH (08:01)
[2022-04-08] MEDS: METOPROLOL SUCC 25MG EXT REL TAB PO SCH (08:01)
[2022-04-08] MEDS: TAMSULOSIN HCL 0.4 MG CAP PO SCH (08:01)
[2022-04-08] MEDS: INSULIN ASPART PER UNIT SC SCH ×4 (08:25→20:35)
[2022-04-08] MEDS ORDERED: PNEUMOCOCCAL Polysaccharide Vaccine 25mcg/0.5mL vial/Syr IM ONE (09:00)
--- NOTE | 2022-04-08 09:05 | Orthopedic Consultation ---
Date of Consultation April 08, 2022 Assessment & Plan (1) Hematoma of left thigh: The patient is to continue the Deandre bandage for approximately 24 to 48 hours. He may weight-bear as tolerated on the left lower extremity. We discussed the improvement in his INR after vitamin K which in turn should help stop any worsening of the hematoma of the left thigh. At this time, surgical intervention will not be necessary. Orthopedics will sign off at this time. You may reconsult if there is a change in his exam. Thank you for the opportunity for the consultation. History of Present Illness Reason for Consultation: Left thigh hematoma Attending Physician: Dustin Velazquez MD History of Present Illness This is a patient who was mowing his lawn approximately 2 to 3 days ago. He states he did not have any injury to the left leg. However, the following day he had weakness within his left leg and inability to bear weight. The day after that, the bruising started to show up and he continued to have difficulty bearing weight. He came to [facility] ER where an ultrasound was performed and he was noted to have a hematoma at the medial aspect of the proximal thigh and his INR was 2.6. He has not had any worsening of the hematoma since his admission. Overall, he feels he is doing well. Allergies Allergy/AdvReac Type Severity Reaction Status Date / Time propoxyphene Allergy Intermediate Hallucinati Verified 12/09/21 13:33 ng omeprazole Allergy Unknown Unknown Verified 12/09/21 13:33 DEANDRE Inhibitors AdvReac Cough Verified 04/08/22 02:03 gabapentin AdvReac Nausea Verified 04/08/22 02:03 Home Medications Medication Instructions Recorded Confirmed Type aspirin 81 mg tablet,delayed 81 mg PO QAM 08/14/19 04/08/22 History release cetirizine 10 mg tablet (Zyrtec) 10 mg PO PM 08/14/19 04/08/22 History folic acid 1 mg tablet 1 mg PO QAM 08/14/19 04/08/22 History losartan 50 mg tablet 50 mg PO PM 08/14/19 04/08/22 History metoprolol succinate 25 mg 25 mg PO QAM 08/14/19 04/08/22 History tablet,extended release 24 hr nitroglycerin 0.4 mg sublingual 0.4 mg sublingual UD PRN Chest Pain 08/14/19 04/08/22 History tablet pantoprazole 40 mg tablet,delayed 40 mg PO QAM 08/14/19 04/08/22 History release polyethylene glycol 3350 17 17 g PO DAILY PRN Constipation 08/14/19 04/08/22 History gram/dose oral powder (Miralax) rosuvastatin 20 mg tablet 20 mg PO PM 08/14/19 04/08/22 History tamsulosin 0.4 mg capsule 0.4 mg PO QAM 08/14/19 04/08/22 History warfarin 2.5 mg tablet 2.5 mg PO 6XWK 08/14/19 04/08/22 History cholecalciferol (vitamin D3) 25 25 mcg PO PM 05/22/20 04/08/22 History mcg (1,000 unit) tablet (Vitamin D3) lorazepam 1 mg tablet 0.5 mg PO PM PRN Insomnia 05/22/20 04/08/22 History duloxetine 30 mg capsule,delayed 30 mg PO PM 10/18/20 04/08/22 History release ropinirole 0.25 mg tablet 0.25 mg PO HS 03/11/21 04/08/22 History dutasteride 0.5 mg capsule 0.5 mg PO PM #90 caps 04/20/21 04/08/22 Rx methenamine hippurate 1 gram tablet 1 g PO BID #180 tabs 04/20/21 04/08/22 Rx ferrous sulfate 325 mg (65 mg 325 mg PO QPM 12/05/21 04/08/22 History iron) tablet (Iron (ferrous sulfate)) psyllium husk 3.4 gram/5.4 gram 1 tsp PO DAILY PRN Constipation 12/05/21 04/08/22 History oral powder (Metamucil) warfarin 2.5 mg tablet 5 mg PO WK 12/05/21 04/08/22 History metformin 1,000 mg tablet 1,000 mg PO BID 04/08/22 04/08/22 History Patient History Medical History Actinic keratosis BPH (benign prostatic hyperplasia) Coronary artery disease follows with Dyslipidemia Hard of hearing History of basal cell carcinoma removed History of pulmonary embolism early , post op complication > Warfarin History of SCC (squamous cell carcinoma) of skin removed Hypertension Myocardial Infarction early On anticoagulant therapy warfarin daily Pancreatic cyst just monitoring Peripheral neuropathy bilat legs Restless leg syndrome Sleep apnea cpap Stroke 2018 > no residual effects > [facility] > was in therapy for reading for a while, all better now > doesn't see neuro anymore Thoracic aortic aneurysm follows [facility]> last checked around October 2020 > unsure of size Urinary retention on occasion, meds help per pt Surgical History History of cardiac cath several > late 1989's early , last one 2007> no stents any time History of cataract surgery right History of colonoscopy History of esophagogastroduodenoscopy (EGD) last 03/23/21 @ [facility] History of tooth extraction Hx of tonsillectomy Status post lumbar laminectomy Status post recent transurethral resection of prostate Family History Father Prostate cancer Diabetes Heart disease Hypertension Other No family history of adverse response to anesthesia Social History Smoking Status: Never smoker Second Hand Exposure: No; Hx Alcohol Use: Yes Hx Substance Use: No Preferred Language: Lao Communication Ability: Effective Loader Operator/Ground Leader Required: No Beliefs That Will Affect Care: None marital status: Current Living Situation: Spouse Current Living Situation Comment: Lives with and son current occupational status: retired Feels Safe at Home: Yes Safety Concerns: Feels Safe At This Time Assistive Devices: None Physical Exam Constitutional: WD/WN, vitals as above no acute distress Neck: trachea midline Musculoskeletal: Hip: + ecchymosis (Moderate medial left thigh); no skin erythema Left thigh: There is moderate ecchymosis extending from the groin to the distal one third of the medial thigh. The thigh is soft. There are no open areas. No erythema. Some tenderness along the ecchymotic areas. Left lower extremity is neurovascularly intact. Dorsiflexion and plantarflexion are intact of the left ankle. Sensation to light touch is intact of the left lower extremity. Skin: no rashes, warm and dry Neurologic: normal touch/pain/proprioception Psychiatric: A+Ox3, euthymic affect Speech: normal rate/rhythm/volume of speech Results & Data ([facility]) Vital Signs (Past 12 Hours) Vital Signs Temp Pulse Pulse Resp BP Pulse Ox O2 Del Method 04/08/22 07:28 37 C 69 18 134/80 98 Room Air 04/08/22 04:35 64 04/08/22 04:04 36.4 C L 72 17 163/82 H 98 Room Air 04/08/22 02:34 70 19 147/91 H 97 Room Air 04/08/22 00:41 66 18 150/88 H 96 Room Air Diagnostic Findings Ultrasound of the left thigh demonstrates a 12.3 cm x 4.6 cm x 5.4 cm hematoma. (1) Hematoma of left thigh Encounter type: initial encounter Qualified Code(s): S70.12XA - Contusion of left thigh, initial encounter
[2022-04-08 11:55] LABS: Hematocrit (blood only) 38.4 % (40.1-51.0); Hemoglobin 12.9 g/dl (14.0-18.0)
--- NOTE | 2022-04-08 13:24 | Hospitalist Progress Note ---
Date of Service April 08, 2022 Assessment & Plan (1) Hematoma of left thigh: (2) Anemia: Plan 81-year-old gentleman with PMH of [place] x3/CAD status post stents x5, HTN, CVA x2, PAF, PE, PVD [thoracic aortic aneurysm], ABDULLAHI on CPAP, BPH/chronic UTI on chronic methenamine treatment, DM2, chronic back pain presented to our ED 04/07 with LLE pain with weightbearing 6 days HEAD TRIMMER and progressive dark reddish discoloration of left thigh since 4 days HEAD TRIMMER. Patient denies any trauma to the thigh or any fall, patient states that he had mowed his lawn the day prior to LLE pain started. Of note, patient had hematuria in October 2020. He is being managed for the following: Acute blood loss anemia in the setting of Coumadin coagulopathy: Hemoglobin of 15 in October 2021 as outpatient, presenting hemoglobin of 12.7, anemia secondary to blood loss from left thigh hematoma [see below], Coumadin on hold/monitor H&H. Patient denies chest pain/shortness of breath/lightheadedness. Continue telemetry monitoring. Transfuse for H&H less than 7 or symptomatic anemia. Fall precaution. Left thigh hematoma: Progressive since 4 days HEAD TRIMMER, no history of trauma or fall per patient. Patient is on Coumadin and was therapeutic at 2.6 at presentation. Coumadin held and is status post 10 Mg IV vitamin K in ED, INR trending down. Admitting left thigh ultrasound with 12.3 cm complex fluid collection in the left thigh with small amount of internal flow suggestive of active extravasation . Continue to monitor hematoma. Ortho evaluated/weightbearing on LLE as tolerated/no acute intervention indicated. History of PAF/PE/stroke/TN/CAD: Patient states that he had 3 heart attack and 5 stents and was put on Coumadin 18 years ago, and then at some point he developed left upper extremity hematoma and was off of Coumadin for 5-year. He then had 2 stroke in short span of time, thought to be due to A. fib, was put on loop recorder which detected PAF, patient was started on Coumadin again after the stroke event. He had hematuria last year in October 2020. Coumadin again was resumed. Now he presents with left thigh hematoma on the background of no trauma or fall. We will continue to monitor off of Coumadin due to active hematoma. Patient will likely need outpatient hematological evaluation. Other chronic medical conditions: HTN, DM2 [A1c of 5.22 October 2021] -->> continue with/resume home meds as and when able. DVT prophylaxis: SCDs Full code Admission and Anticipated Discharge Date Admission Date: April 08, 2022 Subjective Patient seen and examined at bedside as a follow-up of acute blood loss anemia and left thigh hematoma. Patient was lying in bed, on room air, NAD, denies any new acute events overnight, reports eating okay and moving bowels okay, reports pain in the left lower extremity with ambulation, denies fever/headache/chills/blood loss from anywhere else in the body [no hemoptysis/no blood in the stool/no blood in urine/no hematemesis/no skin wounds]. Physical Exam Physical Exam: GENERAL: Alert and oriented x3. NAD, on RA. HEENT: No pallor, no icterus. Pupils equal, round and reactive to light. Oral mucosa moist. NECK: No JVD, no neck masses. HEART: S1 and S2 heard. Regular rate and rhythm. No murmur, no gallop. RESPIRATORY SYSTEM: Normal AP diameter. No accessory muscle use. No wheezing, no crackles. ABDOMEN: Soft, bowel sounds present, nontender, no distention. CENTRAL NERVOUS SYSTEM: No facial droop. Speech is clear. Obeys simple commands. Moves extremities. EXTREMITIES: No edema, left thigh with anteromedial hematoma throughout, mild tenderness. Results & Data Results & Data ([facility]) Vital Signs (Past 12 Hours) Vital Signs Temp Pulse Pulse Resp BP Pulse Ox O2 Del Method 04/08/22 12:48 56 L 04/08/22 12:08 37.0 C 58 L 20 161/80 H 96 Room Air 04/08/22 07:28 37 C 69 18 134/80 98 Room Air 04/08/22 04:35 64 04/08/22 04:04 36.4 C L 72 17 163/82 H 98 Room Air 04/08/22 02:34 70 19 147/91 H 97 Room Air (1) Hematoma of left thigh Encounter type: initial encounter Qualified Code(s): S70.12XA - Contusion of left thigh, initial encounter
--- NOTE | 2022-04-08 14:59 | Orthopedic Progress Note ---
Date of Service April 08, 2022 Assessment & Plan (1) Hematoma of left thigh: Plan: At this point in time there are no surgical indications. We will recommend continued medical management of anticoagulation status. Orthopedics will sign off. Please call if any questions No outpatient follow-up needed. However if he does have issues, he can follow- up with [facility] in 10 to 14 days Admission and Anticipated Discharge Date Admission Date: April 08, 2022 Subjective Doing well has complaints of minimal pain Physical Exam Musculoskeletal: Left thigh shows diffuse ecchymosis. No focal hematoma. Compartments are very soft he is grossly neurovascularly intact. No evidence of infection Results & Data ([facility]) Vital Signs (Past 12 Hours) Vital Signs Temp Pulse Pulse Resp BP Pulse Ox O2 Del Method 04/08/22 12:48 56 L 04/08/22 12:08 37.0 C 58 L 20 161/80 H 96 Room Air 04/08/22 07:28 37 C 69 18 134/80 98 Room Air 04/08/22 04:35 64 04/08/22 04:04 36.4 C L 72 17 163/82 H 98 Room Air (1) Hematoma of left thigh Encounter type: initial encounter Qualified Code(s): S70.12XA - Contusion of left thigh, initial encounter
[2022-04-08] MEDS: FERROUS SULFATE 325 MG TAB PO SCH (21:28)
[2022-04-08] MEDS: DULoxetine HCL 30 MG CAP PO SCH (21:28)
[2022-04-08] MEDS: CETIRIZINE HCL 10 MG TABLET PO SCH (21:28)
[2022-04-08] MEDS: LOSARTAN POTASSIUM 50 MG TAB PO SCH (21:29)
[2022-04-08] MEDS: ROSUVASTATIN CALCIUM 20 MG TAB PO SCH (21:30)
[2022-04-09 06:10] LABS: Hematocrit (blood only) 38.5 % (40.1-51.0); Hemoglobin 12.9 g/dl (14.0-18.0); Mean Corpuscular Hemoglobin 31.7 pg (25.0-34.0); Mean Corpuscular Hgb Conc 33.5 g/dL (32.0-36.0); Mean Corpuscular Volume 94.6 fL (80.0-100.0); Mean Platelet Volume 9.9 fL (9.4-12.4); Platelet Count 207 K/uL (130-400); RDW Coefficient of Variation 13.9 % (11.5-14.5); RDW Standard Deviation 47.8 fL (36.4-46.3); Red Blood Count 4.07 M/uL (4.63-6.08)
[2022-04-09 06:28] LABS: INR 1.1 (0.9-1.1); Prothrombin Time 11.7 Seconds (9.0-12.0)
[2022-04-09 07:02] LABS: BUN Creatinine Ratio 21.7 (10-20); Calcium 8.8 mg/dl (8.5-10.1); Creatinine Clr Calc Pharmacy 83.4 ml/min; Est GFR (Non-African American) 83.7 ml/min; Magnesium 1.9 mg/dl (1.7-2.4); Phosphorus 3.3 mg/dl (2.5-4.9); Potassium 3.8 mmol/L (3.5-5.1)
[2022-04-09] MEDS: INSULIN ASPART PER UNIT SC SCH ×4 (08:22→21:20)
[2022-04-09] MEDS: PANTOprazole 40 MG TAB PO SCH (09:05)
[2022-04-09] MEDS: METHENAMINE HIPPURATE 1 GM TAB PO SCH ×2 (09:05→21:17)
[2022-04-09] MEDS: METOPROLOL SUCC 25MG EXT REL TAB PO SCH (09:05)
[2022-04-09] MEDS: FOLIC ACID 1 MG TAB PO SCH (09:05)
[2022-04-09] MEDS: TAMSULOSIN HCL 0.4 MG CAP PO SCH (09:05)
--- NOTE | 2022-04-09 16:45 | Hospitalist Progress Note ---
Date of Service April 09, 2022 Assessment & Plan (1) Hematoma of left thigh: (2) Anemia: Plan 81-year-old gentleman with PMH of [place] x3/CAD status post stents x5, HTN, CVA x2, PAF, PE, PVD [thoracic aortic aneurysm], ABDULLAHI on CPAP, BPH/chronic UTI on chronic methenamine treatment, DM2, chronic back pain presented to our ED 04/07 with LLE pain with weightbearing 6 days [employer] and progressive dark reddish discoloration of left thigh since 4 days [employer]. Patient denies any trauma to the thigh or any fall, patient states that he had mowed his lawn the day prior to LLE pain started. Of note, patient had hematuria in October 2020. He is being managed for the following: Acute blood loss anemia in the setting of Coumadin coagulopathy: Hemoglobin of 15 in October 2021 as outpatient, presenting hemoglobin of 12.7, anemia secondary to blood loss from left thigh hematoma [see below], Coumadin on hold/monitor H&H. Patient denies chest pain/shortness of breath/lightheadedness. Continue telemetry monitoring. Transfuse for H&H less than 7 or symptomatic anemia. Fall precaution. PT/OT. Left thigh hematoma: Progressive since 4 days [employer], no history of trauma or fall per patient. Patient is on Coumadin and was therapeutic at 2.6 at presentation. Coumadin held and is status post 10 Mg IV vitamin K in ED, INR trended down. Admitting left thigh ultrasound with 12.3 cm complex fluid collection in the left thigh with small amount of internal flow suggestive of active extravasation . Continue to monitor hematoma. Ortho evaluated/weightbearing on LLE as tolerated/no acute intervention indicated/continue with Deandre bandage for approximately 24 to 48 hours. Hematoma appears to stable, patient reports improvement in pain with LLE weightbearing, minimal tenderness on palpation. History of PAF/PE/stroke/MO/CAD: Patient states that he had 3 heart attack and 5 stents and was put on Coumadin around 18 years ago, and then at some point he developed left upper extremity hematoma and was off of Coumadin for 5-year with no issues. He then had 2 stroke in short span of time, thought to be due to A. fib, was put on loop recorder which detected PAF, patient was started on Coumadin again after the stroke event. He had hematuria last year in October 2020. Coumadin again was resumed. Now he presents with left thigh hematoma on the background of no trauma or fall. We will continue to monitor off of Coumadin due to active hematoma. Patient will likely need outpatient hematological evaluation. We will likely stop his Coumadin upon discharge until seen by PCP and/or hematology. Other chronic medical conditions: HTN, DM2 [A1c of 5.22 October 2021] -->> continue with/resume home meds as and when able. DVT prophylaxis: SCDs Full code Disposition: Likely DC tomorrow with PT/OT recommendation, if hemoglobin stays stable and no expansion of hematoma and no other issues. Patient will have to see his PCP within a week time upon discharge. Patient will need to establish hematology. Admission and Anticipated Discharge Date Admission Date: April 08, 2022 Subjective Patient seen and examined at bedside as a follow-up of acute blood loss anemia and left thigh hematoma. Patient was lying in bed, on room air, NAD, denies any new acute events overnight, reports eating okay and moving bowels okay, reports pain in the left lower extremity with ambulation is getting better, tenderness remains with palpation on exam, denies fever/headache/chills/blood loss from anywhere else in the body [no hemoptysis/no blood in the stool/no blood in urine/no hematemesis/no skin wounds]. Physical Exam Physical Exam: GENERAL: Alert and oriented x3. NAD, on RA. HEENT: No pallor, no icterus. Pupils equal, round and reactive to light. Oral mucosa moist. NECK: No JVD, no neck masses. HEART: S1 and S2 heard. Regular rate and rhythm. No murmur, no gallop. RESPIRATORY SYSTEM: Normal AP diameter. No accessory muscle use. No wheezing, no crackles. ABDOMEN: Soft, bowel sounds present, nontender, no distention. CENTRAL NERVOUS SYSTEM: No facial droop. Speech is clear. Obeys simple commands. Moves extremities. EXTREMITIES: No edema, left thigh with anteromedial hematoma throughout, mild tenderness. Appears stable in size. Results & Data Results & Data ([facility]) Vital Signs (Past 12 Hours) Vital Signs Temp Pulse Pulse Resp BP Pulse Ox O2 Del Method 04/09/22 15:24 37.2 C 56 L 17 126/70 95 Room Air 04/09/22 15:08 55 L 04/09/22 11:24 36.7 C 64 17 139/83 99 Room Air 04/09/22 07:16 36.9 C 66 18 151/82 H 95 Room Air (1) Hematoma of left thigh Encounter type: initial encounter Qualified Code(s): S70.12XA - Contusion of left thigh, initial encounter
[2022-04-09] MEDS: DULoxetine HCL 30 MG CAP PO SCH (21:16)
[2022-04-09] MEDS: CETIRIZINE HCL 10 MG TABLET PO SCH (21:16)
[2022-04-09] MEDS: ROSUVASTATIN CALCIUM 20 MG TAB PO SCH (21:17)
[2022-04-09] MEDS: LOSARTAN POTASSIUM 50 MG TAB PO SCH (21:17)
[2022-04-09] MEDS: FERROUS SULFATE 325 MG TAB PO SCH (21:17)
[2022-04-09] MEDS: rOPINIRole HCL 0.25 MG TABLET PO SCH (21:17)
[2022-04-10 06:25] LABS: Hematocrit (blood only) 37.3 % (40.1-51.0); Hemoglobin 12.7 g/dl (14.0-18.0); Mean Corpuscular Hemoglobin 31.6 pg (25.0-34.0); Mean Corpuscular Volume 92.8 fL (80.0-100.0); Mean Platelet Volume 10.2 fL (9.4-12.4); Platelet Count 222 K/uL (130-400); RDW Coefficient of Variation 13.9 % (11.5-14.5); Red Blood Count 4.02 M/uL (4.63-6.08); White Blood Count 6.41 K/ul (4.8-10.8)
[2022-04-10] MEDS: INSULIN ASPART PER UNIT SC SCH (08:56)
[2022-04-10] MEDS: METHENAMINE HIPPURATE 1 GM TAB PO SCH (09:18)
[2022-04-10] MEDS: TAMSULOSIN HCL 0.4 MG CAP PO SCH (09:18)
[2022-04-10] MEDS: FOLIC ACID 1 MG TAB PO SCH (09:18)
[2022-04-10] MEDS: METOPROLOL SUCC 25MG EXT REL TAB PO SCH (09:19)
[2022-04-10] MEDS: PANTOprazole 40 MG TAB PO SCH (09:19)
--- NOTE | 2022-04-10 15:10 | Discharge Summary ---
Date of Service April 10, 2022 Admission HPI Per Admitting Provider History obtained from the patient, and records. Medical history significant for CAD status post stent, hypertension, hyperlipidemia, hx PAF/hx PE/recurrent CVA/cryptogenic stroke on Coumadin, PVD (thoracic aortic aneurysm),ABDULLAHI on CPAP, BPH/chronic UTI on chronic methenamine Rx, DM2 on oral medications, chronic back pain. Last confinement October 2020 for hematuria. 4 days ago, patient noted left leg discomfort worse on walking after cutting grass the other day. Painful left thigh swelling noted 2 days ago. No recollection of trauma. Usual back pain. Patient denies chest pain, SOB, lightheadedness. Patient consulted ER for evaluation. MEDICAL HISTORY: As above. SURGERIES: back surgery, TURP, cataract surgery FAMILY HISTORY:Dementia, breast cancer, colon cancer, DM, heart disease, skin cancer PERSONAL AND SOCIAL HISTORY: Nonsmoker, no ETOH intake. 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 Admission Exam Per Admitting Provider GENERAL: Comfortable, pleasant, slightly hard of hearing, no respiratory distress SKIN: Pallor, warm HEENT: Alopecia, pale palpebral conjunctivae, no ptosis, moist buccal mucosa NECK : Supple, no tenderness CHEST : CTA, no tenderness HEART : RRR, no obvious murmurs ABDOMEN: Some distention, nontender EXTREMITIES : Tender left thigh ecchymotic swelling with surrounding bandage wrap, no other conspicuous deformities noted NEUROLOGIC : Coherent, no facial asymmetry, slightly hard of hearing, gait and stance not assessed Principal Diagnosis Left thigh hematoma on warfarin Discharge Exam GENERAL: Alert and oriented x3. NAD, on RA. HEENT: No pallor, no icterus. Pupils equal, round and reactive to light. Oral mucosa moist. NECK: No JVD, no neck masses. HEART: S1 and S2 heard. Regular rate and rhythm. No murmur, no gallop. RESPIRATORY SYSTEM: Normal AP diameter. No accessory muscle use. No wheezing, no crackles. ABDOMEN: Soft, bowel sounds present, nontender, no distention. CENTRAL NERVOUS SYSTEM: No facial droop. Speech is clear. Obeys simple commands. Moves extremities. EXTREMITIES: No edema, bluish discoloration on anterior medial thigh extending down to the calf. Mild tenderness. Appears stable in size. Discharge Data Allergies Allergy/AdvReac Type Severity Reaction Status Date / Time propoxyphene Allergy Intermediate Hallucinati Verified 12/09/21 13:33 ng omeprazole Allergy Unknown Unknown Verified 12/09/21 13:33 ELINOR Inhibitors AdvReac Cough Verified 04/08/22 02:03 gabapentin AdvReac Nausea Verified 04/08/22 02:03 Consultations 04/07/22 23:35 ED Decision to Admit Stat 04/08/22 02:56 Consult Orthopedic Surgery Routine Ordered Studies 04/07/22 21:51 soft tissue ext ltd Stat Hospital Course (1) Hematoma of left thigh: (2) Anemia: Plan 81-year-old gentleman with PMH of [place] x3/CAD status post stents x5, HTN, CVA x2, PAF, PE, PVD [thoracic aortic aneurysm], ABDULLAHI on CPAP, BPH/chronic UTI on chronic methenamine treatment, DM2, chronic back pain presented to our ED 04/07 with LLE pain with weightbearing 6 days [employer]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 Patient denies any trauma to the thigh or any fall, patient states that he had mowed his lawn the day prior to LLE pain started. Of note, patient had hematuria in October 2020. Patient underwent left thigh ultrasound which revealed 12.3 cm complex fluid collection with a small amount of internal flow which could represent active extravasation. Patient was given 10 mg of IV vitamin K in ED. INR trended down and patient was monitored in telemetry floor. His hemoglobin was in the range of 12.7 which is lower from his baseline of 15 in October. His hemoglobin remained stable throughout the hospitalization. Clinically, patient's hematoma remained stable. He was instructed to follow up with his PCP to discuss regarding resumption of warfarin in future. Total Time Total Time Spent Total Time Spent (In Minutes): 35 Total Time Includes: Examination of the Patient, Discharge Planning, Medication Reconciliation, Communication With Other Providers and Other Discharge Plan Discharge Items Patient Disposition: Home - Self-Care Reason For Visit: ANEMIA, L THIGH HEMATOMA Discharge Diagnosis: Left thigh hematoma on Coumadin Condition on Discharge: Good Activity: Resume your previous activity Non-emergency contact: Primary Care Provider Call non-emergency contact if: you have any medication questions and your symptoms worsen Follow-up/Referrals: Anurag Mora MD [Primary Care Provider] - Diet: Regular Addtl Attending Provider Instructions: You were admitted to the hospital with blood collection in your left thigh. Your hemoglobin was stable throughout the hospitalization in the range of 12.5- 12.9g/dl. Please continue to hold warfarin for now. Follow-up with your primary care doctor within a week. Please discuss with your primary care doctor regarding the timing of resumption of warfarin. Please continue to take all your other medication as before. Pending Studies at Discharge: No Stand-Alone Forms: My [facility] [employer], Smoking Cessation Medications and DC Order Prescriptions: Continued methenamine hippurate 1 gram tablet 1 g PO BID Qty: 180 3RF dutasteride 0.5 mg capsule 0.5 mg PO PM Qty: 90 3RF losartan 50 mg tablet 50 mg PO PM Rx Instructions: Patient states this dose pantoprazole 40 mg tablet,delayed release (DR/EC) 40 mg PO QAM metoprolol succinate 25 mg tablet extended release 24 hr 25 mg PO QAM rosuvastatin 20 mg tablet 20 mg PO PM tamsulosin 0.4 mg capsule 0.4 mg PO QAM nitroglycerin 0.4 mg Tablet, Sublingual 0.4 mg sublingual UD PRN (Reason: Chest Pain) cetirizine [Zyrtec] 10 mg Tablet 10 mg PO PM aspirin 81 mg Tablet,Delayed Release (Dr/Ec) 81 mg PO QAM folic acid 1 mg Tablet 1 mg PO QAM polyethylene glycol 3350 [Miralax] 17 gram/dose Powder 17 g PO DAILY PRN (Reason: Constipation) lorazepam 1 mg tablet 0.5 mg PO PM PRN (Reason: Insomnia) cholecalciferol (vitamin D3) [Vitamin D3] 25 mcg (1,000 unit) Tablet 25 mcg PO PM duloxetine 30 mg Capsule,Delayed Release(Dr/Ec) 30 mg PO PM ropinirole 0.25 mg Tablet 0.25 mg PO HS ferrous sulfate [Iron (ferrous sulfate)] 325 mg (65 mg iron) Tablet 325 mg PO QPM Metamucil 3.4 gram/5.4 gram Powder 1 tsp PO DAILY PRN (Reason: Constipation) metformin 1,000 mg tablet 1,000 mg PO BID Discontinued warfarin 2.5 mg tablet 2.5 mg PO [id number] Label Comments: takes in the am warfarin 2.5 mg Tablet 5 mg PO WK Label Comments: on am Discharge Orders: Discharge Order (Routine); Ordered 04/10/22 Ordered By: Rashaun Montana Admission Data Admit Date/Time: 04/08/22 02:54 Attending Provider: Rashaun Montana Admit Provider: Ernesto Webb Primary Care Provider: Anurag Mora Other Providers: Ernesto Webb ; Will Bro ; Franki Campbell ; Can Robison ; Morena Moore ; Juancho Cobb ; Kaitlyn Nair ; Rip Alcaraz ; Antony Burns ; Perico Pearce Andrew J. ; Antony Simeon ; Irwin Faulkner ; Jesse Naht ; Krishna Pulido ; Kaitlyn Mcwilliams ; Randy Hartman ; Ayesha Reece ; Waqar Bishop ; Abigail Kelly ; Juan Gutiérrez Other Interventions: Discharge Summary Assessment (RN) Last Done: 04/10/22 10:47
== END 2022-04-10 12:12 | disposition home or self-care (01) | DRG 556 ==
LOC: ED 19:54 → SUATTDRO 04-08 02:54 → 2E 04-08 02:54

== ENCOUNTER 2024-01-26 19:51 | Inpatient (IN) ==
--- OUTSIDE RECORDS SUMMARY | 2024-01-26 19:58 | External Medical Summary | Summary of Care ---
Author Name Unknown Organization [facility] Address [address] [place] [address] Phone [phone] Care Team Providers Care Strategic Account Manager Name Role Phone Anurag Mora MD Primary Care Provider + Reason for Visit * Reason Comments Return Neuro Encounter Details Date Type Department Care Team (Late st Contact Info) Description 01/10/2024 1:30 PM EDT Office Visit Neurology [facility] [address] [place] [address] Evelyn Mcgill PA-C [address] [facility] [place] [address] Diabetic peripheral neuropathy (HCC)*; Cord compression (HCC) Allergies Active Allergy Reactions Criticality Noted Date Comments Deandre Inhibitors Cough Medium 05/25/2008 Propoxyphene N-Acetaminophen Nausea/vomiting Low 04/26/2010 Gabapentin Nausea/vomiting Low 04/10/2011 Omeprazole 12/05/2002 bad side effects documented as of this encounter (statuses as of 01/10/2024) Medications Medication Sig Dispensed Refills Start Date End Date Status FOLIC ACID TABS 1 MG ORIndications:Acute IA, anterior wall (HCC) 1 TABLET DAILY 30 0 10/17/2000 Active ZYRTEC 10 MG PO TABSIndications:Nikko rgic rhinitis due to other allergen One pill by mouth once a day for allergies 90 3 05/10/2009 Active Polyethylene Glycol 3350 17 GM/SCOOP Oral PowderIndications:as needed Take 17 g by mouth daily as needed for Constipation. Dissolve one heaping tablespoon in 8 ounces of water or juice. 1 Bottle 2 03/05/2019 Active dutasteride (AVODART) 0.5 MG Capsule Take 1 Capsule by mouth in the morning. Active Cholecalciferol (VITAMIN D3) 25 MCG (1000 UT) CAPS Take 1 Capsule by mouth at bedtime. Active Methenamine Hippurate 1 g TABS Take 1 Tablet by mouth in the morning and 1 Tablet before bedtime. 02/28/2020 Active CPAP 10 cm every night at bedtime. Active OneTouch Verio Flex System w/Device KitIndications:High blood sugar,Type 2 diabetes mellitus with hemoglobin A1c goal of less than 7.0% ([facility]) Use as directed. Use to test blood glucose once daily. DX: E11.9 1 Kit 05/30/2021 Active Iron 325 (65 Fe) MG Oral Tablet Take 1 Tablet by mouth in the morning. 11/28/2021 Active Nitroglycerin 0.4 MG Sublingual Tablet Sublingual (Nitrostat) Place 1 Tablet under the tongue every 5 minutes as needed for Pain, Chest. Active LORazepam 1 MG Oral Tablet (Ativan) TAKE 1 TABLET BY MOUTH NEEDED BEFORE BEDTIME FOR SLEEP 90 Tablet 05/18/2022 Active Tamsulosin HCl 0.4 MG Oral Capsule (Flomax)Indications: BPH without obstruction/lower urinary tract symptoms TAKE 1 CAPSULE BY MOUTH DAILY 90 Capsule 3 05/18/2022 Active Zoster Vac Recomb Adjuvanted 50 MCG/0.5ML Intramuscular Suspension Reconstituted (Shingrix)Indication s:Need for shingles vaccine Inject 0.5 mL into a large muscle now and repeat dose in 60 to 180 days 1 Each 1 05/26/2022 Active Additional Information Patient not taking.Reported on 02/02/2023 Fluorouracil 5 % External Cream (Efudex) Apply topically to affected area 2 times a day. apply to affected area scalp, ears, temples, nose as directed 40 g 10/18/2022 Active Calcipotriene 0.005 % External Cream (Calcitrene) Apply topically to affected area 2 times a day. Apply to scalp, ears, temples and nose as directed (mix with 5% 5-fluorouracil cream) 60 g 10/18/2022 Active amLODIPine Besylate 2.5 MG Oral Tablet (Norvasc)Indications :HTN, goal below 140/90 TAKE 1 TABLET BY MOUTH DAILY 90 Tablet 3 05/02/2023 Active rOPINIRole HCl 0.25 MG Oral Tablet (Requip)Indications: Restless legs syndrome TAKE 1 TABLET BY MOUTH AT BEDTIME WITH FOOD 90 Tablet 3 06/20/2023 Active DULoxetine HCl 60 MG Oral Capsule Delayed Release Particles (Cymbalta) TAKE 1 CAPSULE BY MOUTH AT NIGHT 90 Capsule 2 07/10/2023 Active Vitamin B-12 1000 MCG Oral Tablet (Cyanocobalamin) Take 1 Tablet by mouth in the morning. Active OneTouch Delica Plus [id number] :Type 2 diabetes mellitus with hemoglobin A1c goal of less than 7.0% ([facility]),High blood sugar USE TO CHECK GLUCOSE ONCE DAILY 100 Each 3 08/22/2023 Active OneTouch Verio In Vitro Strip (Glucose Blood)Indications:Ty pe 2 diabetes mellitus with hemoglobin A1c goal of less than 7.0% ([facility]),High blood sugar USE 1 STRIP TO CHECK GLUCOSE ONCE DAILY 100 Strip 3 08/22/2023 Active Pantoprazole Sodium 40 MG Oral Tablet Delayed Release (Protonix)Indication s:Gastroesophageal reflux disease without esophagitis TAKE 1 TABLET BY MOUTH DAILY 90 Tablet 3 09/05/2023 Active Rosuvastatin Calcium 20 MG Oral Tablet (Crestor)Indications :Dyslipidemia, goal LDL below 100 TAKE 1 TABLET BY MOUTH DAILY 90 Tablet 3 09/05/2023 Active Metoprolol Succinate ER 25 MG Oral Tablet Extended Release 24 Hour (toPROL XL)Indications:Old myocardial infarct,HTN, goal below 140/90 TAKE 1 TABLET BY MOUTH ONCE DAILY 90 Tablet 3 09/05/2023 Active Warfarin Sodium 2.5 MG Oral Tablet (Coumadin)Indication s:PAF (paroxysmal atrial fibrillation) ([facility]) TAKE 2 TABLETS BY MOUTH ON SUNDAY AND 1 TABLET ON OTHER DAYS OF THE WEEK OR DIRECTED BY COAG CLINIC 104 Tablet 2 11/22/2023 Active metFORMIN HCl 1000 MG Oral Tablet (Glucophage)Indicati ons:High blood sugar,Type 2 diabetes mellitus with hemoglobin A1c goal of less than 7.0% ([facility]) TAKE 1 TABLET BY MOUTH WITH BREAKFAST AND DINNER 180 Tablet 2 11/22/2023 Active Losartan Potassium 50 MG Oral Tablet (Cozaar)Indications: HTN, goal below 140/90,ASCVD (arteriosclerotic cardiovascular disease) TAKE 1 TABLET BY MOUTH TWICE DAILY 180 Tablet 3 11/22/2023 Active Additional Information Patient taking differently: QHS, Reported on 11/29/2023 documented as of this encounter (statuses as of 01/10/2024) Active Problems Problem Noted Date Diagnosed Date Myelopathy 07/26/2022 Ascending aorta enlargement 07/26/2022 Type 2 diabetes mellitus with diabetic polyneuro rosie 07/26/2022 Restless legs syndrome (RLS) 08/05/2021 Type 2 diabetes mellitus wit h hemoglobin A1c goal of less than 7.0% 05/30/2021 HTN, goal below 140/90 01/25/2021 Pancreatic cyst 04/16/2020 PAF (paroxysmal atrial fibrillation) 10/16/2018 Bradycardia, sinus 07/26/2018 1st degree AV block 07/26/2018 History of DVT (deep vein thrombosis) 01/21/2018 Obesity, Class I, BMI 30.0-34.9 (see actual BMI) 01/21/2018 S/P coronary artery stent placement 01/21/2018 H/O ischemic multifocal posterior circulation [facility] 12/17/2017 Dermatochalasis, bilateral 09/20/2015 ABDULLAHI (obstructive sleep apnea) 09/29/2014 History of elevated PSA 02/08/2014 S/P lumbar spinal fusion 09/07/2011 Hereditary and idiopathic peripheral neuropathy 05/04/2011 Dyslipidemia, goal LDL below 70 06/24/2009 Overview: Per Lipid Taxonomy. Thoracic aortic aneurysm 08/24/2008 Spinal stenosis of lumbar re gion without neurogenic claudication 08/23/2007 Old myocardial infarct 05/02/2007 Overview: inferior/posterior wall motion abnormalities on ECHO BPH without obstruction/lower urinary tract symp toms 05/14/2006 Other allergic rhinitis 10/15/2002 Overview: ICD-10 update of inactive term GERD (gastroesophageal reflux disease) Overview: 08/20 EGD: - Hiatus hernia. - Intraesophageal pH probe attached to mucosa. - Non-bleeding erythematous gastropathy. - Papulous gastropathy. - Normal examined duodenum. Anticoagulation management encounter 05/30/2002 ATHEROSCLEROTIC CORONARY DISEASE Overview: angioplasties -stent multiple Cath 03/19:1. 100% mid RCA stenosis, in the middle of an extraordinarily long stented section. The distal RCA fills faintly by antegrade collaterals and collaterals from the left system. 2. No other severe coronary lesions. 3. Wall motion suggests myocardial infraction or hibernating myocardium in the inferior Displacement of lumbar inter vertebral disc without myelopathy Overview: MRI lumbar spine 01/14/07 --Central canal narrowing at T12-L1 --Posterior and leftward eccentric disc protrusion at L5-S1 --Multiple old compression deformities at the thoracolumbar junction --Moderately severe spondylosis in the lumbar spine --Severe faxcet osteoarthropathy in the mid and lower lumbar spine with osteophytic narrowing of multiple neural foramina. This is most severe at L4-L5 and on the left at L5-S1 History of pulmonary embolism Overview: 2002 secondary to DVT L S/p anticoagulation >12 months documented as of this encounter (statuses as of 01/10/2024) Resolved Problems Problem Noted Date Diagnosed Date Resolved Date Sinus pause 07/26/2018 10/16/2018 History of malignant neoplasm of skin 05/02/2018 04/08/2019 History of migraine 05/02/2018 04/08/20 Cryptogenic stroke 01/21/2018 04 9 Anticoagulated on warfarin 01/21/2018 0 08/05/2021 Prediabetes 08/28/2017 06/30/2021 Overview: Per Prediabetes protocol #1 RLL 1.4 cm nodule 05/04/2011 12/01/2017 Overview: 08/2009 CT -- [id number] 11/2012 CT -- 11x8mm, f/u in 18 months OSTEOARTHRITIS HIP- RIGHT 02/03/2011 ADVANCE DIRECTIVE INFORMATION 11/30/2009 08/05/2021 Overview: No, Advance Directive brochure given to patient at prior appointment. RLL 1.4 cm nodule 09/03/2009 05/04/2011 Chronic pharyngitis 02/02/2008 03/30/20 17 FAMILY HX-GI MALIGNANCY 05/14/200607/17 Overview: Mother colon ca Colonoscopy:06/20 Impression: - One 2 mm polyp in the proximal ascending colon. Resected and retrieved. - Circumscribed focal area of erythematous mucosa in the cecum. - Internal, non bleeding, small hemorrhoids were found. - The exam was otherwise normal to the cecum. Recommendation: - Repeat colonoscopy in 5 years for surveillance.- tubular adenoma Migraine without aura 05/15/20052017 retirement current use of ant icoagulant therapy 07/08/2003 03/12/2012 Overview: ICD-10 update of inactive term HYPERTENSIVE HRT DIS NOS 10/15/200202/2008 CRESCENDO ANGINA 06/09/2002 03/23/2010 Mixed dyslipidemia 06/09/2002 9 Overview: Per Lipid Taxonomy. Rosacea 04/11/2002 03/30/2017 Malignant neoplasm of skin of parts of face 01/07/2002 05/02/2018 Overview: ICD-10 update of inactive term HTN, goal below 130/80 01/25 Esophagitis 03/30/2017 Overview: ICD-10 update of inactive term Allergic rhinitis 08/23/2007 documented as of this encounter (statuses as of 01/10/2024) Immunizations Name Administration Dates Next Due COVID-19 mRNA, LNP-s, No Pre serve, 2-Dose Series (Light Harmonic) 04/13/2021,09/11/2020,08/21/2020 COVID-19, LNP-s, No Preserve , [place]-sucrose, Ages 12+ (Pfizer) 10/20/2021 Covid-19, Mrna, Lnp-s, Pf, B ivalent, 30 Mcg, IM, 12 yrs and above (Light Harmonic) 03/29/2022 H1N1 2009 Influenza, IM 07/02/2009 Pneumococcal Conjugate Vacc, 13 Valent (Prevnar) 10/06/2015 Pneumococcal Polysaccharide PPV23 (Pneumovax) 06/08/2008 Season Influenza, Quad, PF, Adjuvanted, 65+ Yrs, IM (FLUAD) 03/19/2020 Seasonal Influenza, PF, 6 M & above, IM , (FluLaval or Fluzone) 04/17/2018 Seasonal Influenza, Quadriva lent Hd (Fluzone Hd) 04/11/2023,03/23/2022 Seasonal Influenza, Quadriva lent Hd, 65+ Yrs 03/15/2021 Seasonal Influenza, Quadriva lent, No Preserve, IM 03/30/2017,03/28/2016 Seasonal Influenza, Split, I IV3, With Preserve, Inj 04/01/2015,03/18/2014,03/29/2013,03/16,05/04/2011,05/05/2010,05/10/20,05/25/2008,05/09/2007,05/14/2006 03/18/2015 Seasonal Influenza, Trivalen t, Adjuvanted, 65+ yrs 04/08/2019 TD, Preservative Free 05/25/2008 TDAP (age 10 and older)(Boostrix) 03/28/2016 Varicella Zoster Vaccine (Adult) 05/04/2011 documented as of this encounter Social History Tobacco Use Types Packs/Day Years Used Date Smoking Tobacco: Never Smokeless Tobacco: Never Alcohol Use Standard Drinks/Week Comments Not Currently 0 (1 standard drink = 0.6 oz pur e alcohol) PHQ-2 Answer Date Recorded PHQ Adult Total Score 1 05/26/2022 Hunger Vital Sign Answer Date Recorded Within the past 12 months, y ou worried that your food would run out before you got the money to buy more. Never true 05/26/20 22 Within the past 12 months, t he food you bought just didn't last and you didn't have money to get more. Never true 05/26/2022 Utilities Answer Date Recorded Do you have trouble paying y our heating, water, or electric bill? (Adult - for ages 18 years and over) Not on file 01/01/2024 Is your family able to pay t he heat, water, or electric bill? (Household - for ages 0-17 years) Not on file 01/01/2024 Does your family have access to good internet? (Household - for ages 0-17 years) Not on file 01/01/2024 Social Connections Answer Date Recorded How often do you feel lonely or isolated from those around you? (Adult - for ages 18 years and over) Not on file 01/01/2024 Sex and Gender Information Value Date Recorded Sex Assigned at Male 12/13/2018 11:49 AM EDT Gender Identity Male 12/13/2018 11:49 AM EDT Sexual Orientation Straight 12/13/2018 11 :49 AM EDT Job Start Date Occupation Industry Not on file Not on file Not on file documented as of this encounter Last Filed Vital Signs Vital Sign Reading Time Taken Comments Blood Pressure 136/82 01/10/2024 1:29 PM EDT Pulse 84 01/10/2024 1:29 PM EDT Temperature 36.2 C (97.2 F) 01/10/2024 1:29 PM ED T Respiratory Rate - - Oxygen Saturation 96% 01/10/2024 1:29 PM EDT Inhaled Oxygen Concentration - - Weight 98.5 kg (217 lb 1.6 oz) 01/10/2024 1:29 P M EDT Height - - Body Mass Index 31.15 08/15/2023 3:02 PM EST documented in this encounter Functional Status Functional Status Response Date of Assess ment Are you deaf or do you have serious difficulty h earing? No 01/21/2018 Are you blind or do you have serious difficulty seeing, even when wearing glasses? No 01/21/2018 Do you have serious difficul ty walking or climbing stairs? (5 years old or older) No 01/21/2018 Do you have difficulty dress ing or bathing? (5 years old or older) No 01/21/2018 Because of a physical, menta l, or emotional condition, do you have difficulty doing errands alone such as visiting a doctor s office or shopping? (15 years old or older) No 01/22/20 Cognitive Status Response Date of Assessm ent Because of a physical, menta l, or emotional condition, do you have serious difficulty concentrating, remembering, or making decisions? 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 Previously evaluated by [facility] and determined to be a high risk candidate for surgical intervention due to Coumadin. He was offered conservative treatment and referral to [facility] which hedeclined. He was last seen on 07/10/23. Declined referral to [facility] or [facility]. Today states he is overall well. He is interested in finding more supportive shoes. Finishing an antibiotic today for UTI. Pain is well managed. Denies bowel/bladder incontinence, recent falls, new onset weakness. 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 There is a superimposedsevere chronic right L5 radiculopathy and a mild right L4 radiculopathy. There is a right median neuropathy at the level the wrist causing mild chronic denervation and poorly localize right ulnar neuropathy. There is additionally a right C6 and right C7 radiculopathy MRI cervical spine: IMPRESSION 1. Multilevel spondylotic changes of cervical spine, including moderate spinal canal stenosis at C5-C6, severe left neural foraminal narrowing from C3-C4 through C5-C6, and moderate to severe right neural foraminal narrowing at C3-C4 and C5-C6. See above for detailed level by level assessment. MRI Thoracic Spine IMPRESSION: 1. Transitional thoracolumbar anatomy with 13 rib-bearing thoracic-type vertebral bodies. 2. Multilevel degenerative changes superimposed with congenital pedicle foreshortening, most pronounced at T11-T12 with severe spinal canal stenosis and impingement of the cord at this level associated with cord myelomalacia. MRI lumbar spine: IMPRESSION 1. Transitional thoracolumbar anatomy with 13 rib-bearing thoracic-type vertebral bodies. Correlation of this numbering scheme with radiographs is recommended prior to any surgical intervention. 2. Postsurgical changes of L2-L5 laminectomies, L1-L3 instrumented posterior spinal fusion, and placement of interbody spacers/interbody fusion L2-L3, L3-L4, and L5-S1. 3. Multilevel spondylotic changes of the lumbar spine, including moderate to severe degrees of bilateral neural foraminal narrowing from L2-L3 through L5-S1. See above for detailed level by level assessment. 4. Mild chronic compression fractures of T13 and L1. Allergies: Deandre inhibitors, Omeprazole, Darvocet [propoxyphene n-acetaminophen], and Neurontin [gabapentin] Problem list: Patient Active Problem List Diagnosis Anticoagulation management encounter GERD (gastroesophageal reflux disease) Other allergic rhinitis ATHEROSCLEROTIC CORONARY DISEASE Displacement of lumbar intervertebral disc without myelopathy History of pulmonary embolism BPH without obstruction/lower urinary tract symptoms Old myocardial infarct Spinal stenosis of lumbar region without neurogenic claudication Thoracic aortic aneurysm (HCC) Dyslipidemia, goal LDL below 70 Hereditary and idiopathic peripheral neuropathy S/P lumbar spinal fusion History of elevated PSA ABDULLAHI (obstructive sleep apnea) Dermatochalasis, bilateral H/O ischemic multifocal posterior circulation stroke History of DVT (deep vein thrombosis) Obesity, Class I, BMI 30.0-34.9 (see actual BMI) S/P coronary artery stent placement Bradycardia, sinus 1st degree AV block PAF (paroxysmal atrial fibrillation) (HCC) Pancreatic cyst HTN, goal below 140/90 Type 2 diabetes mellitus with hemoglobin A1c goal of less than 7.0% (HCC) Restless legs syndrome (RLS) Myelopathy (HCC) Ascending aorta enlargement (HCC) Type 2 diabetes mellitus with diabetic polyneuropathy (HCC) Past Medical History: Past Medical History: Diagnosis Date ASCVD (arteriosclerotic cardiovascular disease) INF IA , PTCA + STENT RCA Benign neoplasm of colon 06/13/11 hamartomatous polyp--rpt c-scope 1 yr Benign neoplasm of colon 07/2012 adenomatous polyp f/u in 5 yrs Displacement of lumbar intervertebral disc without myelopathy Herniated Nucleus Pulposis, HNP Displacement of lumbar intervertebral disc without myelopathy Dyslipidemia, goal to be determined Esophagitis, unspecified Family history of malignant neoplasm MOTHER COLON CA FAMILY HX-GI MALIGNANCY 05/14/2006 Mother colon ca Colonoscopy:06/20 Impression: - One 2 mm polyp in the proximal ascending colon. Resected and retrieved. - Circumscribed focal area of erythematous mucosa in the cecum. - Internal, non bleeding, small hemorrhoids were found. - The exam was otherwise normal to the cecum. Recommendation: - Repeat colo Gastroparesis 07/20 mildly delayed gastric emptying on nuclear medicine scan. H/O ischemic multifocal posterior circulation stroke 12/17/2017 HTN, goal below 140/90 Hyperplasia of prostate Pancreatic cyst 04/16/2020 Current Outpatient Medications: Current Outpatient Medications Medication Sig Dispense Refill FOLIC ACID TABS 1 MG OR 1 TABLET DAILY 30 0 ZYRTEC 10 MG PO TABS One pill by mouth once a day for allergies 90 3 Polyethylene Glycol 3350 17 GM/SCOOP Oral Powder Take 17 g by mouth daily as needed for Constipation. Dissolve one heaping tablespoon in 8 ounces of water or juice. 1 Bottle 2 dutasteride (AVODART) 0.5 MG Capsule Take 1 Capsule by mouth in the morning. Cholecalciferol (VITAMIN D3) 25 MCG (1000 UT) CAPS Take 1 Capsule by mouth at bedtime. Methenamine Hippurate 1 g TABS Take 1 Tablet by mouth in the morning and 1 Tablet before bedtime. CPAP 10 cm every night at bedtime. NPTV Flex System w/Device Kit Use as directed. Use to test blood glucose once daily. DX: E11.9 1 Kit 0 Iron 325 (65 Fe) MG Oral Tablet Take 1 Tablet by mouth in the morning. Nitroglycerin 0.4 MG Sublingual Tablet Sublingual (Nitrostat) Place 1 Tablet under the tongue every5 minutes as needed for Pain, Chest. LORazepam 1 MG Oral Tablet (Ativan) TAKE 1 TABLET BY MOUTH NEEDED BEFORE BEDTIME FOR SLEEP 90 Tablet 0 Tamsulosin HCl 0.4 MG Oral Capsule (Flomax) TAKE 1 CAPSULE BY MOUTH DAILY 90 Capsule 3 Fluorouracil 5 % External Cream (Efudex) Apply topically to affected area 2 times a day. apply to affected area scalp, ears, temples, nose as directed 40 g 0 Calcipotriene 0.005 % External Cream (Calcitrene) Apply topically to affected area 2 times a day. Apply to scalp, ears, temples and nose as directed (mix with 5% 5-fluorouracil cream) 60 g 0 amLODIPine Besylate 2.5 MG Oral Tablet (Norvasc) TAKE 1 TABLET BY MOUTH DAILY 90 Tablet 3 rOPINIRole HCl 0.25 MG Oral Tablet (Requip) TAKE 1 TABLET BY MOUTH AT BEDTIME WITH FOOD 90 Tablet 3 DULoxetine HCl 60 MG Oral Capsule Delayed Release Particles (Cymbalta) TAKE 1 CAPSULE BY MOUTH AT NIGHT 90 Capsule 2 Vitamin B-12 1000 MCG Oral Tablet (Cyanocobalamin) Take 1 Tablet by mouth in the morning. [employer] Delica Plus [id number] USE TO CHECK GLUCOSE ONCE DAILY 100 Each 3 OneTouch Verio In Vitro Strip (Glucose Blood) USE 1 STRIP TO CHECK GLUCOSE ONCE DAILY 100 Strip 3 Pantoprazole Sodium 40 MG Oral Tablet Delayed Release (Protonix) TAKE 1 TABLET BY MOUTH DAILY 90 Tablet 3 Rosuvastatin Calcium 20 MG Oral Tablet (Crestor) TAKE 1 TABLET BY MOUTH DAILY 90 Tablet 3 Metoprolol Succinate ER 25 MG Oral Tablet Extended Release 24 Hour (toPROL XL) TAKE 1 TABLET BY MOUTH ONCE DAILY 90 Tablet 3 Warfarin Sodium 2.5 MG Oral Tablet (Coumadin) TAKE 2 TABLETS BY MOUTH ON SUNDAY AND 1 TABLET ON OTHER DAYS OF THE WEEK OR DIRECTED BY COAG CLINIC 104 Tablet 2 metFORMIN HCl 1000 MG Oral Tablet (Glucophage) TAKE 1 TABLET BY MOUTH WITH BREAKFAST AND DINNER 180Tablet 2 Losartan Potassium 50 MG Oral Tablet (Cozaar) TAKE 1 TABLET BY MOUTH TWICE DAILY (Patient taking differently: every night at bedtime.) 180 Tablet 3 Zoster Vac Recomb Adjuvanted 50 MCG/0.5ML Intramuscular Suspension Reconstituted (Shingrix) Inject 0.5 mL into a large muscle now and repeat dose in 60 to 180 days (Patient not taking: Reported on 02/02/2023) 1 Each 1 No current facility-administered medications for this visit. Family History: Family History Problem Relation Name Age of Onset Breast Cancer Mother Colon cancer Mother Heart attack Father 65 Diabetes Father Alzheimer's disease Father Skin cancer Father Other (OK) Sister Heart Disorder Brother Heart attack Brother Other (OA) Brother Other (OK) Brother SOCIAL HISTORY: Social History Tobacco Use Smoking status: Never Smokeless tobacco: Never Vaping Use Vaping status: Never Used Substance Use Topics Alcohol use: Not Currently Drug use: No REVIEW OF SYSTEMS: As above OBJECTIVE: Physical Examination: BP 136/82 (BP Site: Right Arm, BP Position: Sitting, BP Cuff Size: Regular) | Pulse 84 | Temp 36.2 C (97.2 F) (Tympanic) | Wt 98.5 kg (217 lb 1.6 oz) | SpO2 96% | BMI 31.15 kg/m | BSA 2.21 m General appearance: healthy, alert, no distress Physical Exam: Constitutional: Appearance normally developed,well nourished,no deformities,well groomed Head and face: normocephalic,atraumatic Respiratory: normal effort,clear to auscultation Cardiovascular: normal heart sounds and regular rhythm Psychiatric: normal judgement and insight,normal mood,normal affect NEUROLOGIC EXAMINATION: Mental Status Exam: alert,oriented to time, place, person,normal recent memory,normal remote memory,normal attention span,normal concentration,normal language,normal fund of knowledge Cranial Nerves: CN 5 - Facial sensation intact and equal bilaterally CN 7 - no facial assymetry CN 8 - hearing grossly intact Gait/station: Wide based orthopedic gait Muscle exam: Arm Right Left Leg Right Left Deltoid 5/5 5/5 Iliopsoas 5/5 5/5 Biceps 5/5 5/5 Triceps 5/5 5/5 Reflexes: Biceps BR Patellar Achilles Plantars Right 2+ 2+ 3 2+ Flexor Left 2+ 2+ 3 2+ Flexor LABORATORY: Results for orders placed or performed in visit on 08/17/23 CBC Result Value Ref Range WBC 6.17 4.00 - 10.80 K/uL RBC 5.21 4.50 - 5.25 M/uL HGB 16.2 14.0 - 16.8 g/dL HCT 48.8 (H) 40.0 - 48.4 % MCV 93.7 82.0 - 99.5 fL MCH 31.1 27.0 - 34.0 pg MCHC 33.2 32.0 - 36.0 g/dL RDW 14.1 11.5 - 15.5 % PLT 201 140 - 400 K/uL MPV 9.8 6.6 - 11.1 fL Results for orders placed or performed in visit on 04/13/22 BASIC METABOLIC PANEL Result Value Ref Range BUN 21 (H) 6 - 20 mg/dL Creatinine 0.8 0.6 - 1.2 mg/dL Estimated Glomerular Filtration Rate 89 >=60 mL/min Sodium 141 135 - 146 mmol/L Potassium 4.8 3.5 - 5.1 mmol/L Chloride 102 98 - 107 mmol/L CO2 30 22 - 32 mmol/L Anion Gap 9 7 - 15 mmol/L Glucose 99 70 - 120 mg/dL Calcium 9.5 8.4 - 10.2 mg/dL Results for orders placed or performed in visit on 08/17/23 LIPID PANEL WITH DIRECT LDL IF TG IS HIGH Result Value Ref Range Triglycerides 128 <=174 mg/dL Cholesterol 117 <200 mg/dL HDL Cholesterol 64 >39 mg/dL Non-HDL Cholesterol 53 <=159 mg/dL LDL Cholesterol 27 <=129 mg/dL Lab Results Component Value Date/Time HEMOGLOBIN A1C - [facility] 6.2 (H) 08/17/2023 09:05 AM HEMOGLOBIN A1C - [facility] 6.1 (H) 07/27/2022 08:41 AM HEMOGLOBIN A1C - [facility] 6.0 (H) 04/13/2022 03:07 PM HEMOGLOBIN A1C - [facility] 6.5 (H) 07/27/2020 01:20 PM HEMOGLOBIN A1C - [facility] 6.5 (H) 08/11/2019 12:44 PM HEMOGLOBIN A1C - [facility] 6.3 (H) 04/15/2019 08:43 AM HEMOGLOBIN A1C POCT - [facility] 5.7 (H) 02/01/2023 08:40 AM HEMOGLOBIN A1C POCT - [facility] 5.9 (H) 11/09/2021 08:23 AM Lab Results Component Value Date/Time TSH - [facility] 1.89 07/27/2020 01:20 PM TSH - [facility] 1.44 08/11/2019 12:44 PM TSH - [facility] 1.28 09/28/2016 08:44 AM DREW CELIO SCREEN Date Value Ref Range Status 02/02/2009 NEGATIVE Final Results for orders placed or performed in visit on 08/17/23 VITAMIN B12 Result Value Ref Range Vitamin B12 300 232 - 1,245 pg/mL Results for orders placed or performed in visit on 11/21/21 FOLIC ACID Result Value Ref Range Folic Acid >20.0 >4.5 ng/mL No results found for: "[id number]" No results found for: "[id number]" No results found for: "[id number]" 25-Hydroxy Vitamin D (ng/mL) Date Value 07/27/2022 41 08/17/2021 38 Vitamin D Level Interpretation deficient: <20 ng/ml insufficient: 20-30 ng/ml normal: 31-100 ng/ml Review of prior Studies: ASSESSMENT/PLAN: Arnulfo Morfin is a 83 year old male who returns today for follow up of 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 Indications to present to ED reviewed including bowel/bladder incontinence, new weakness/numbness, and severe back pain. Continue Cymbalta. Follow up in 12 months or sooner if needed. I spent a total of 30 minutes on the date of service inpreparation, delivery, and documentation of the care provided to Arnulfo Morfin. Eugenia Matos MD available for direct consultation. Evelyn Mcgill PA-C, Neurology [facility] [place] [address] [place] [address] 01/10/2024 2:02 PM documented in this encounter Nursing Notes * Supriya Ruiz LPN - 01/10/2024 1:29 PM EDT Chief Complaint Patient presents with Return Neuro documented in this encounter Plan of Treatment Upcoming Encounters Date Type Department Care Team (Late st Contact Info) Description 01/30/2024 9:40 AM EDT Anticoagulation Pharmacy, [facility] [place] [address] [place] [address] Pharmacist1, [facility] [address] [place] [address] 02/13/2024 3:30 PM EDT Cardiac Studies Cardiac Studies, [facility] [place] [address] [facility] [place] [address] 02/19/2024 2:40 PM EDT Office Visit General Internal Medicine [facility] [address] [place] [address] Anurag Mora MD [address] [facility] [place] [address] 03/04/2024 9:30 AM EDT Office Visit [facility] [address] [facility] [place] [phone] Elena Cuevas CRNP [address] [facility] [address] 05/27/2024 8:15 AM EST Office Visit MOHS Surgery [facility] [address] [place] [address] Jewell Pastor MD [address] [facility] [address] 06/23/2024 2:30 PM EST Office Visit Cardiology, [facility] [address] [facility] [place] [address] [facility]ancho Nelson, [facility] [place] [address] 01/15/2025 1:30 PM EDT Office Visit [facility] [address] [facility] [address] Evelyn Mcgill PA-C [address] [place] [address] Scheduled Procedures Name Priority Associated Diagnoses Date/Ti me COLONOSCOPY FLEXIBLE PROXIMA L DIAGNOSTIC Recall History of colonic polyps Health Maintenance Due Date Last Done Comments Zoster Vaccines (2 of 3) 06/29/2011 05/04/2011 Depression Screening 05/26/2023 05/26/2022 Albumin/Creatinine Ratio 07/27/2023 07/27/2022, 08/2021 COVID-19 Vaccine ( season) 2023 04/30/2023, 03/29/2022, 10/20/2021, Additional history exists HbA1c 02/15/2024 08/17/2023, 01/14, 07/27/2022, Additional history exists Diabetic Foot Exam 08/15/2024 08/15/2023, 0 07/26/2022, 08/05/2021 GFR 08/17/2024 08/17/2023, 07/16, 04/13/2022, Additional history exists Diabetic Eye Exam 12/17/2024 12/18/2023, , 08/29/2021, Additional history exists DTaP,Tdap,and Td Vaccines (2 - Td or Tdap) 03/28/2026 03/28/2016, 05/25/2008, 02/04/1996 Colonoscopy 12/15/2027 12/14/2022, 11/14, 12/09/2021, Additional history exists Pneumococcal Vaccine: 65+ Years Completed 10/06/2015, 06/08/2008, 08/06/1998 RETIRED - COLONOSCOPY-EVERY 5 YRS AGES 18-100 Discontinued 12/14/2022, 12/09/2021, 12/09/2021, Additional history exists Influenza Vaccine (FLU shot) Completed 04/11/2023, 03/23/2022, 03/15/2021, Additional history exists GARDASIL-HPV IMMUNIZATION SERIES Aged Out No longer eligible based on patient's age to complete this topic Hepatitis B Aged Out No longer eligi ble based on patient's age to complete this topic MENINGOCOCCAL (MENACTRA/MENVEO) Aged Out No longer eligible based on patient's age to complete this topic documented as of this encounter Medical Devices Implanted Type Area Rn Anesthesiology Device Identifier Shelf Expiration Date Model / Serial / Lot Lens Intraoc 18.0 - [id number] - [id number] Implanted:Qty: 1 on 12/11/2017 by Bryan Alfaro MD at OR [facility] Right: Eye [employer] 07/15/2021 [id number] / [id number] / [id number] Clip Quick 2.8mm 230cm - [id number] Implanted:Qty: 1 on 08/11/2020 by Anaid Powell DO at ENDOSCOPY [facility] [employer] 09/15/2022 HX-202UR.A / / [id number] Clip Quick 2.8mm 230cm - [id number] Implanted:Qty: 1 on 08/11/2020 by Anaid Powell, DO at ENDOSCOPY [facility] [employer] 09/15/2022 HX-202UR.A / / [id number] Clip Quick 2.8mm 230cm - [id number] Implanted:Qty: 1 on 08/11/2020 by Anaid Powell, DO at ENDOSCOPY [facility] [employer] 09/15/2022 HX-202UR.A / / [id number] Clip Quick 2.8mm 230cm - [id number] Implanted:Qty: 1 on 08/11/2020 by Anaid Powell, DO at ENDOSCOPY [facility] [employer] 09/15/2022 HX-202UR.A / / [id number] documented as of this encounter Visit Diagnoses Diagnosis Diabetic peripheral neuropathy (HCC)- Primary Type II or unspecified type diabetes mellitus with neurological manifestations, not stated as uncontrolled Cord compression (HCC) Unspecified disease of spinal cord documented in this encounter Advance Directives * Full Code (Latest Code Status on File) Date Activated Date Inactivated Comments 12/11/2017 12:38 PM 12/11/2017 7:16 PM This order reflects the patients wishes and were consensually agreed upon. Care Teams Strategic Account Manager Relationship Specialty Start Date End Date Anurag Mora MD [address] [place] [address] PCP - General Internal Medicine 05/06/21 documented as of this encounter
--- NOTE | 2024-01-26 20:14 | Emergency Department Note ---
Impression & Plan Supratherapeutic INR, Contusion of leg, right, Hematuria ED Provider Note Provider: Thiago Leonard MD DATE OF SERVICE: 01/26/2024 CHIEF COMPLAINT: Hematuria, bruising on leg, incomplete urinary emptying HISTORY OF PRESENT ILLNESS: Patient is a 83-year-old gentleman significant past medical history including VTE on Coumadin as well as paroxysmal atrial fibrillation, stroke, recurrent UTIs and incomplete bladder emptying occasionally straight caths and follows with urology presenting here today with family reporting over the past 2 days has noted a small area of bruising on the right upper thigh that is expanded and become larger. Some slight tenderness area and states he started to use his leg some. Denies extreme pain. Denies any significant trauma to this. Denies headache or head injury or loss of consciousness. Denies any significant chest pain or shortness of breath. Denies significant abdominal pain but states he feels like is not emptying his bladder as well. Follows with urology and has a history of recurrent UTIs in the past. On Cipro last month. Has not had an INR checked since before then. Has noted some hematuria prickly with a straight cath that he did this afternoon as he like he was not urinating so much and there was blood in this. Normally to straight caths at night. States he has not really felt weak and got down to the floor but did not really fall. PAST MEDICAL HISTORY: As noted above MEDICATIONS: Reviewed home medications includes Coumadin and aspirin SOCIAL HISTORY: Non-smoker PHYSICAL EXAM: GENERAL: alert and oriented in no acute distress on stretcher Head: normocephalic and atraumatic EYES: No injection, discharge or icterus. EOMI NECK: Trachea midline. ENT: Mucous membranes pink and moist. LUNGS: Airway patent. No retractions. Breath sounds clear HEART: Regular rate and rhythm. No chest wall tenderness ABDOMEN: Soft and non-tender, without guarding or rebound. SKIN: Acyanotic, warm, dry, without rashes EXTREMITIES: Without swelling, tenderness or deformity except for a large approximately 15 x 22 cm area of ecchymosis and contusion without fluctuance or firmness to the right proximal anterior thigh. 1+ bilateral DP pulses NEUROLOGICAL: No focal deficits. No aphasia. No facial droop or slurred speech. Normal strength and tone in the extremities. Sensation to gross touch normal. EK bpm sinus rhythm first-degree AV block with PVC noted. Left axis. Some LVH changes without clear acute ST segment elevation and QTc of 472. CONTINUOUS CARDIAC MONITORING: was ordered and showed a heart rate of 70s to 90s bpm in sinus and first-degree heart block occasional PVCs Patient's laboratory studies and imaging reviewed. Differential includes hematoma, supratherapeutic INR, UTI, kidney stone, urinary retention, intracranial bleeding, abdominal bleeding, compartment syndrome, vascular occlusion, DVT, sepsis, among others were considered. IMPRESSION/MEDICAL DECISION MAKING: Patient well-appearing in no distress. Blood pressure slightly low from triage. Patient on anticoagulation was recently on Cipro. May have affected his underlying INR she does note some immaturity as well as more significantly a large hematoma to the right anterior thigh. No evidence of compartment syndrome. No significant trauma reported. Seems neurovascular intact distally. Benign abdomen. Does occasionally straight cath but had due to some retention concerns this afternoon blood in this. Will check for UTI as well given history of this. Basic blood work obtained including blood counts. Will want to exclude significant anemia as well as any signs of renal dysfunction or again supratherapeutic INR. No believe this represents DVT no bleeding ultrasound of the area. No head injury or syncope or headache reported and no believe any head imaging. Benign abdomen. Blood work here without significant leukocytosis although the high end of normal at 10.2. Stable hemoglobin 12. Normal platelet count. No severe electrolyte abnormalities creatinine 1.25 from baseline around 0.8. Normal LFTs. INR is elevated at 5.5 today likely explaining the increased hematuria as well as some of the bruising to the right anterior leg. Doubt acute intracranial head bleed, internal bleeding or retroperitoneal hemorrhage given lack of symptoms for this or trauma. Given a dose of IV vitamin K. Will hold off antibiotics as the urine does not appear infected at this time. Shahid placement without complication and illness. Blood returned without clots notable but not a large amount. Given the status of a blue dysfunction due to the bruising of his legs with the elevated INR and hematuria with Shahid placement at this time we will is not obstructed, will in shared decision-making of the hospitalist observe. Hospitalist was contacted. DIAGNOSIS: Hematuria, supratherapeutic INR, leg contusion DISPOSITION: Hospitalist will evaluate Patient was agreeable with this plan. Past Med/Surg History Problem List (Updated 01/26/24 @ 21:40 by Thiago Leonard M.D.) Hematuria (Acute) Contusion of leg, right (Acute) Supratherapeutic INR (Acute) Recurrent UTI (urinary tract infection) Heme positive stool Stroke Migraine headache (Chronic) Urinary retention Incomplete emptying of bladder Elevated prostate specific antigen (PSA) Gastric polyp Encounter for pre-operative examination Encounter for pre-operative examination Colon polyp Anemia Anemia (Acute) Anemia Encounter for pre-operative examination Status post recent transurethral resection of prostate (Chronic) Status post lumbar laminectomy (Chronic) BPH (benign prostatic hyperplasia) (Chronic) History of pulmonary embolism (Chronic) early , post op complication > Warfarin Dyslipidemia (Chronic) Medical History Actinic keratosis BPH (benign prostatic hyperplasia) Chronic urinary tract infection Coronary artery disease follows with CVA (cerebral vascular accident) Diabetes mellitus, type 2 Dyslipidemia Elevated INR Hard of hearing History of basal cell carcinoma removed History of pulmonary embolism early , post op complication > Warfarin History of SCC (squamous cell carcinoma) of skin removed Hypertension Myocardial Infarction early On anticoagulant therapy warfarin daily PAF (paroxysmal atrial fibrillation) Pancreatic cyst just monitoring Peripheral neuropathy bilat legs Restless leg syndrome Sleep apnea cpap Stroke 2017 > no residual effects > [facility] > was in therapy for reading for a while, all better now > doesn't see neuro anymore T2DM (type 2 diabetes mellitus) Thoracic aortic aneurysm follows with Dr. Poole with [email or web address]> last checked around October 2020 > unsure of size Urinary retention on occasion, meds help per pt Surgical History History of cardiac cath several > late 1989's early s, last one 2007> no stents any time History of cataract surgery right History of colonoscopy last 12/09/21 @ [facility] History of esophagogastroduodenoscopy (EGD) History of tooth extraction Hx of tonsillectomy Status post lumbar laminectomy Status post recent transurethral resection of prostate Family History Father Prostate cancer Diabetes Heart disease Hypertension Other No family history of adverse response to anesthesia Social History Smoking Status: Never smoker Second Hand Exposure: No; Do You Dip or Chew Tobacco: No; Hx Alcohol Use: No Hx Substance Use: No Preferred Language: Latvian Communication Ability: Effective Hand Bander Required: No Beliefs That Will Affect Care: None marital status: Current Living Situation: Spouse and Family Current Living Situation Comment: Lives with and son current occupational status: retired Feels Safe at Home: Yes Diet: regular Assistive Devices: Cane, CPAP, Glasses and Hearing Aid - Bilateral Allergies Allergies Allergy/AdvReac Type Severity Reaction Status Date / Time propoxyphene Allergy Intermediate Hallucinati Verified 12/26/23 10:53 ng omeprazole Allergy Unknown Unknown Verified 12/26/23 10:53 ELINOR Inhibitors AdvReac Mild Cough Verified 12/26/23 10:53 gabapentin AdvReac Mild Nausea Verified 12/26/23 10:53 Home Meds Home Medications Medication Instructions Recorded Confirmed cetirizine 10 mg tablet (Zyrtec) 10 mg PO PM 08/14/19 01/26/24 folic acid 1 mg tablet 1 mg PO QAM 08/14/19 01/26/24 losartan 50 mg tablet 50 mg PO PM 08/14/19 01/26/24 metoprolol succinate 25 mg 25 mg PO QAM 08/14/19 01/26/24 tablet,extended release 24 hr nitroglycerin 0.4 mg sublingual 0.4 mg sublingual UD PRN Chest Pain 08/14/19 01/26/24 tablet pantoprazole 40 mg tablet,delayed 40 mg PO QAM 08/14/19 01/26/24 release polyethylene glycol 3350 17 17 g PO DAILY PRN Constipation 08/14/19 01/26/24 gram/dose oral powder (Miralax) rosuvastatin 20 mg tablet 20 mg PO PM 08/14/19 01/26/24 cholecalciferol (vitamin D3) 25 25 mcg PO PM 05/22/20 01/26/24 mcg (1,000 unit) tablet (Vitamin D3) lorazepam 1 mg tablet 0.5 mg PO PM PRN Insomnia 05/22/20 01/26/24 ropinirole 0.25 mg tablet 0.25 mg PO HS 03/11/21 01/26/24 ferrous sulfate 325 mg (65 mg 325 mg PO QPM 12/05/21 01/26/24 iron) tablet (Iron (ferrous sulfate)) psyllium husk 3.4 gram/5.4 gram 1 tsp PO DAILY PRN Constipation 12/05/21 01/26/24 oral powder (Metamucil) metformin 1,000 mg tablet 1,000 mg PO BID 04/08/22 01/26/24 warfarin 2.5 mg tablet 2.5 mg PO UD 06/21/22 01/26/24 amlodipine 2.5 mg tablet 2.5 mg PO QAM 01/26/24 01/26/24 calcipotriene 0.005 % topical cream 1 applic topical .BID UD 01/26/24 01/26/24 cyanocobalamin (vitamin B-12) 1,000 mcg PO DAILY 01/26/24 01/26/24 1,000 mcg tablet (Vitamin B-12) duloxetine 60 mg capsule,delayed 60 mg PO QPM 01/26/24 01/26/24 release dutasteride 0.5 mg capsule 0.5 mg PO HS 01/26/24 01/26/24 Previous Rx's Medication Instructions Recorded methenamine hippurate 1 gram tablet 1 g PO BID #180 tabs 12/20/22 tamsulosin 0.4 mg capsule See Rx Instructions .Route 11/21/23 .COMPLEX #90 caps Results & Data (ED) Vital Signs Vital Signs - 24 hr 01/26/24 19:56 01/26/24 20:20 01/26/24 20:36 Temperature 36.9 C Temperature Source Temporal Artery Scan Pulse Rate 55 L 98 H 93 H Pulse Rate from SpO2 Sensor 89 Respiratory Rate 18 20 Blood Pressure 92/50 L 97/61 L Blood Pressure Mean 64 73 Pulse Oximetry 95 90 Oxygen Delivery Method Room Air Room Air Sepsis Recent Fever Within 48 Hours No Sepsis New/Unexplained Change in Mental Status N/A Sepsis Action Taken by Nursing No Action Required 01/26/24 20:36 01/26/24 20:36 01/26/24 20:45 Temperature Temperature Source Pulse Rate 90 Pulse Rate from SpO2 Sensor 91 H Respiratory Rate 21 Blood Pressure 97/61 L 97/61 L Blood Pressure Mean 68 68 Pulse Oximetry 91 Oxygen Delivery Method Sepsis Recent Fever Within 48 Hours Sepsis New/Unexplained Change in Mental Status Sepsis Action Taken by Nursing 01/26/24 21:00 01/26/24 21:06 01/26/24 21:30 Temperature Temperature Source Pulse Rate 88 84 Pulse Rate from SpO2 Sensor 88 83 Respiratory Rate 25 H 16 Blood Pressure 115/69 122/65 Blood Pressure Mean 86 76 Pulse Oximetry 92 92 Oxygen Delivery Method Sepsis Recent Fever Within 48 Hours Sepsis New/Unexplained Change in Mental Status Sepsis Action Taken by Nursing 01/26/24 22:00 01/26/24 22:00 01/26/24 22:27 Temperature Temperature Source Pulse Rate 90 88 Pulse Rate from SpO2 Sensor 89 89 Respiratory Rate 24 16 Blood Pressure 133/82 133/82 Blood Pressure Mean 98 98 Pulse Oximetry 99 95 Oxygen Delivery Method Sepsis Recent Fever Within 48 Hours Sepsis New/Unexplained Change in Mental Status Sepsis Action Taken by Nursing Laboratory Data 01/26/24 22:28 01/26/24 20:22 Lab Results 01/26/24 01/26/24 01/26/24 Range/Units 20:22 20:40 22:28 WBC 10.29 (4.8-10.8) K/ul RBC 3.89 L (4.70-6.10) M/uL Hgb 12.0 L 11.1 L (14.0-18.0) g/dl Hct 36.0 L 34.5 L (42.0-52.0) % MCV 92.5 (80.0-100.0) fL MCH 30.8 (25.0-34.0) pg MCHC 33.3 (32.0-36.0) g/dL RDW Std Deviation 48.1 H (36.4-46.3) fL RDW Coeff of Argelia 14.1 (11.5-14.5) % Plt Count 208 (130-400) K/uL MPV 10.1 (9.4-12.4) fL Immature Gran % (Auto) 0.4 % Neut % (Auto) 75.9 % Lymph % (Auto) 13.6 % [place] % (Auto) 9.1 % Eos % (Auto) 0.8 % Baso % (Auto) 0.2 % Neut # (Auto) 7.81 H (1.40-6.50) K/uL Lymph # (Auto) 1.40 (1.20-3.40) K/uL [place] # (Auto) 0.94 H (0.11-0.59) K/uL Eos # (Auto) 0.08 (0.00-0.50) K/uL Baso # (Auto) 0.02 (0.00-0.20) K/uL Immature Gran # (Auto) 0.04 (0.01-0.20) K/uL PT 51.3 H (9.0-12.0) Seconds INR 5.5 H (0.9-1.1) APTT 46 H (21-31) Seconds PTT Ratio 1.7 Sodium 137 (136-145) mmol/L Potassium 3.9 (3.5-5.1) mmol/L Chloride 104 (98-107) mmol/L Carbon Dioxide 22 (21-32) mmol/L Anion Gap 11 (3-11) BUN 44 H (6-23) mg/dl Creatinine 1.25 (0.6-1.4) mg/dl Est Cr Clr Drug Dosing 55.9 ml/min Est GFR ( Amer) 62.2 ml/min Est GFR (Non-Af Amer) 53.7 ml/min BUN/Creatinine Ratio 35.2 H (10-20) Glucose 164 H (70-99(Fasting)) mg/dl Lactate 1.8 (0.4-2.0) mmol/L Calcium 9.6 (8.6-10.3) mg/dl Magnesium 1.8 (1.7-2.4) mg/dl Total Bilirubin 1.3 H (0.2-1.0) mg/dl AST 19 (13-39) U/L ALT 10 (7-52) U/L Alkaline Phosphatase 46 (34-104) U/L Total Creatine Kinase 309 H (30-223) U/L Troponin I High Sens 17.6 (0-20) pg/ml Total Protein 6.2 (6.0-8.3) gm/dl Albumin 4.0 (3.4-5.0) gm/dl Globulin 2.2 L (2.5-4.0) gm/dl Albumin/Globulin Ratio 1.8 (0.9-2) TSH 4.513 H (0.300-4.500) uIu/ml Free T4 0.82 (0.61-1.60) ng/dl Urine Color See Comment Urine Appearance Turbid A (Clear) Urine pH Not Reportable Ur Specific [place] 1.025 (1.000-1.030) Urine Protein Not Reportable Urine Glucose (UA) Not Reportable Urine Ketones Not Reportable Urine Blood Not Reportable Urine Nitrite Not Reportable Urine Bilirubin Not Reportable Urine Urobilinogen Not Reportable Ur Leukocyte Esterase Not Reportable Urine RBC >20 H (0-2) /hpf Urine WBC 0-5 (0-5) /hpf Ur Epithelial Cells 0-2 (0-2) /hpf Urine Bacteria None Seen (None Seen) Blood Type O Positive Antibody Screen NEGATIVE Administered Medications Sodium Chloride (Nss) 1,000 mls @ 80 mls/hr IV .[id number] ONE Stop: 01/27/24 11:08 Last Admin: 01/26/24 23:04 Dose: 80 mls/hr Documented By: JOSE Insulin Aspart (Insulin Aspart Per Unit Charge) 0 units SC ACHS MIRANDA Stop: 02/26/24 00:18 Last Admin: 01/27/24 00:32 Dose: Not Given Documented By: OSEI Discontinued Medications Sodium Chloride (Nss) 500 mls @ 999 mls/hr IV .Q31M MIRANDA Stop: 01/26/24 20:45 Last Infusion: 01/26/24 21:38 Dose: Infused Documented By: Admin: 01/26/24 20:22 Dose: 999 mls/hr Documented By: DELGADO Phytonadione 2.5 mg/ Dextrose 50.25 mls @ 100.5 mls/hr IV ONE ONE Stop: 01/26/24 21:49 Last Admin: 01/26/24 22:24 Dose: Not Given Documented By: DELGADO Sodium Chloride (Nss) 500 mls @ 999 mls/hr IV .Q31M ONE Stop: 01/26/24 21:59 Last Infusion: 01/26/24 22:22 Dose: Infused Documented By: Admin: 01/26/24 21:34 Dose: 999 mls/hr Documented By: JOSE Magnesium Sulfate/Dextrose (Magnesium Sulfate / D5w) 1 gm in 100 mls @ 50 mls/hr IV ONE ONE Stop: 01/26/24 23:42 Last Admin: 01/26/24 23:03 Dose: 50 mls/hr Documented By: JOSE Phytonadione 10 mg/ Dextrose 51 mls @ 102 mls/hr IV ONE ONE Stop: 01/26/24 22:21 Last Infusion: 01/26/24 22:53 Dose: Infused Documented By: Admin: 01/26/24 22:13 Dose: 102 mls/hr Documented By: JOSE Discharge Plan Visit Data Chief Complaint: Urinary Symptoms Stated Complaint: URINARY TRACT SYMPTOMS, HEMATOMA ON LEG ED Provider: Thiago Leonard Discharge Problem: Supratherapeutic INR, Contusion of leg, right, Hematuria Patient Disposition: Admitted As Inpatient Discharge Instructions Interventions: ED Discharge Assessment Last Done: 01/26/24 23:48 Discharge Problem: Contusion of leg, right Qualifiers: Encounter type: initial encounter Qualified Code(s): S80.11XA - Contusion of right lower leg, initial encounter Hematuria Qualifiers: Hematuria type: gross Qualified Code(s): R31.0 - Gross hematuria
[2024-01-26] MEDS: SODIUM CHLORIDE 0.9% 500 ML IV SCH (20:22)
[2024-01-26 20:37] LABS: Basophils # (auto) 0.02 K/uL (0.00-0.20); Basophils % (auto) 0.2 %; Eosinophils # (auto) 0.08 K/uL (0.00-0.50); Eosinophils % (auto) 0.8 %; Immature Granulocytes # (auto) 0.04 K/uL (0.01-0.20); Immature Granulocytes % (auto) 0.4 %; Lymphocytes % (auto) 13.6 %; Mean Corpuscular Hemoglobin 30.8 pg (25.0-34.0); Mean Corpuscular Hgb Conc 33.3 g/dL (32.0-36.0); Mean Corpuscular Volume 92.5 fL (80.0-100.0); Mean Platelet Volume 10.1 fL (9.4-12.4); Monocytes # (auto) 0.94 K/uL (0.11-0.59); Monocytes % (auto) 9.1 %; Neutrophils # (auto) 7.81 K/uL (1.40-6.50); Neutrophils % (auto) 75.9 %; Platelet Count 208 K/uL (130-400); RDW Coefficient of Variation 14.1 % (11.5-14.5); RDW Standard Deviation 48.1 fL (36.4-46.3); Red Blood Count 3.89 M/uL (4.70-6.10); White Blood Count 10.29 K/ul (4.8-10.8)
[2024-01-26 20:53] LABS: Albumin Globulin Ratio 1.8 (0.9-2); BUN Creatinine Ratio 35.2 (10-20); Bilirubin,Total 1.3 mg/dl (0.2-1.0); Calcium 9.6 mg/dl (8.6-10.3); Creatinine Clr Calc Pharmacy 55.9 ml/min; Est GFR (African American) 62.2 ml/min; Est GFR (Non-African American) 53.7 ml/min; Globulin 2.2 gm/dl (2.5-4.0); Magnesium 1.8 mg/dl (1.7-2.4); Potassium 3.9 mmol/L (3.5-5.1); Total Protein 6.2 gm/dl (6.0-8.3)
[2024-01-26 21:00] LABS: Troponin I High Sensitivity 17.6 pg/ml (0-20)
[2024-01-26 21:02] LABS: INR 5.5 (0.9-1.1); Partial Thromboplastin Ratio 1.7; Partial Thromboplastin Time 46 Seconds (21-31); Prothrombin Time 51.3 Seconds (9.0-12.0)
[2024-01-26 21:08] LABS: Appearance Urine Turbid (Clear); Specific Gravity Urine 1.025 (1.000-1.030)
[2024-01-26 21:09] LABS: Thyroid Stimulating Hormone 4.513 uIu/ml (0.300-4.500)
[2024-01-26 21:11] LABS: Epithelial Cell Urine 0-2 /hpf (0-2); RBC Urine >20 /hpf (0-2)
[2024-01-26 21:12] LABS: Bacteria Urine None Seen (None Seen); WBC Urine 0-5 /hpf (0-5)
[2024-01-26] MEDS: SODIUM CHLORIDE 0.9% 500 ML IV ONE (21:34)
[2024-01-26 21:44] LABS: T4 Free Thyroxine 0.82 ng/dl (0.61-1.60)
[2024-01-26] MEDS: PHYTONADIONE 10 MG in DEXTROSE 5% 50 ML IV ONE (22:13)
[2024-01-26] MEDS: PHYTONADIONE 2.5 MG in DEXTROSE 5% 50 ML IV ONE (22:24)
--- NOTE | 2024-01-26 22:27 | History & Physical Report ---
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 DM2 on oral medications, well-controlled as of recent hemoglobin A1c of 6.2 last August 2023 Medical telemetry IVF, appropriate to hold home BP meds for now Appropriate to hold home aspirin and Coumadin for now Consider inpatient Hematology input RE NOAC Rx in place of Coumadin prior to discharge given recurrent episodes of bleeding from Coumadin coagulopathy Vitamin K to reverse coagulopathy given significant hemoglobin drop Follow H&H, transfuse PRBC to maintain hemoglobin above 8 and or for symptomatic anemia CT right femur re: ecchymosis rule out muscular bleed Monitor CPK response to IVF, hold statin for now given mild rhabdomyolysis ISS BG goal 1 10-1 40, carb count coverage DVT prophylaxis. SCDs if INR less than 2 while Coumadin on hold Full code Patient requesting updates providers. Ms. Hoa Morfin, contact #[phone]. Text document was generated using [employer] voice recognition software. It may contain grammatical or spelling errors. Kindly contact undersigned for clarification of any documentation item in question. ADDENDUM 01/26 CT R femur result noted Retroperitoneal hematoma incompletely evaluated on this exam. Hemorrhage extends into the right thigh. Retroperitoneal bleed Case discussed with Dr. Stephens of General Surgery. She recommends CT angio abdomen pelvis study for further evaluation of retroperitoneal bleed. History of Present Illness Chief Complaint: Right thigh bruising Primary Care Provider: Anurag Mora MD History obtained from the patient,, family, and records. 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 Last confinement March 2022 for left thigh hematoma secondary to Coumadin coagulopathy. No operative intervention. 1 day history of bruising right thigh with progression. No unusual back pain. No headache, no chest pain, no SOB. Unable to move right leg because of pain. Recent outpatient Cipro course for UTI prescribed by urologist. Patient brought by son to ER for evaluation. SBP 90s upon arrival at the ER. MEDICAL HISTORY: As above. SURGERIES: back surgery, TURP, cataract surgery FAMILY HISTORY:Dementia, breast cancer, colon cancer, DM, heart disease, skin cancer PERSONAL AND SOCIAL HISTORY: Nonsmoker, no ETOH intake. 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 Allergies Allergy/AdvReac Type Severity Reaction Status Date / Time propoxyphene Allergy Intermediate Hallucinati Verified 12/26/23 10:53 ng omeprazole Allergy Unknown Unknown Verified 12/26/23 10:53 ELINOR Inhibitors AdvReac Mild Cough Verified 12/26/23 10:53 gabapentin AdvReac Mild Nausea Verified 12/26/23 10:53 Home Medications Medication Instructions Recorded Confirmed Type cetirizine 10 mg tablet (Zyrtec) 10 mg PO PM 08/14/19 01/26/24 History folic acid 1 mg tablet 1 mg PO QAM 08/14/19 01/26/24 History losartan 50 mg tablet 50 mg PO PM 08/14/19 01/26/24 History metoprolol succinate 25 mg 25 mg PO QAM 08/14/19 01/26/24 History tablet,extended release 24 hr nitroglycerin 0.4 mg sublingual 0.4 mg sublingual UD PRN Chest Pain 08/14/19 01/26/24 History tablet pantoprazole 40 mg tablet,delayed 40 mg PO QAM 08/14/19 01/26/24 History release polyethylene glycol 3350 17 17 g PO DAILY PRN Constipation 08/14/19 01/26/24 History gram/dose oral powder (Miralax) rosuvastatin 20 mg tablet 20 mg PO PM 08/14/19 01/26/24 History cholecalciferol (vitamin D3) 25 25 mcg PO PM 05/22/20 01/26/24 History mcg (1,000 unit) tablet (Vitamin D3) lorazepam 1 mg tablet 0.5 mg PO PM PRN Insomnia 05/22/20 01/26/24 History ropinirole 0.25 mg tablet 0.25 mg PO HS 03/11/21 01/26/24 History ferrous sulfate 325 mg (65 mg 325 mg PO QPM 12/05/21 01/26/24 History iron) tablet (Iron (ferrous sulfate)) psyllium husk 3.4 gram/5.4 gram 1 tsp PO DAILY PRN Constipation 12/05/21 01/26/24 History oral powder (Metamucil) metformin 1,000 mg tablet 1,000 mg PO BID 04/08/22 01/26/24 History warfarin 2.5 mg tablet 2.5 mg PO UD 06/21/22 01/26/24 History methenamine hippurate 1 gram tablet 1 g PO BID #180 tabs 12/20/22 01/26/24 Rx tamsulosin 0.4 mg capsule See Rx Instructions .Route 11/21/23 01/26/24 Rx .COMPLEX #90 caps amlodipine 2.5 mg tablet 2.5 mg PO QAM 01/26/24 01/26/24 History calcipotriene 0.005 % topical cream 1 applic topical .BID UD 01/26/24 01/26/24 History cyanocobalamin (vitamin B-12) 1,000 mcg PO DAILY 01/26/24 01/26/24 History 1,000 mcg tablet (Vitamin B-12) duloxetine 60 mg capsule,delayed 60 mg PO QPM 01/26/24 01/26/24 History release dutasteride 0.5 mg capsule 0.5 mg PO HS 01/26/24 01/26/24 History Past Med/Surg History Problem List (Updated 01/27/24 @ 11:12 by Yumiko Abbott DO) Hematoma Hypotension Hematuria (Acute) Contusion of leg, right (Acute) Supratherapeutic INR (Acute) Recurrent UTI (urinary tract infection) Heme positive stool Stroke Migraine headache (Chronic) Urinary retention Incomplete emptying of bladder Elevated prostate specific antigen (PSA) Gastric polyp Encounter for pre-operative examination Encounter for pre-operative examination Colon polyp Anemia Anemia (Acute) Anemia Encounter for pre-operative examination Status post recent transurethral resection of prostate (Chronic) Status post lumbar laminectomy (Chronic) BPH (benign prostatic hyperplasia) (Chronic) History of pulmonary embolism (Chronic) early , post op complication > Warfarin Dyslipidemia (Chronic) Medical History Actinic keratosis BPH (benign prostatic hyperplasia) Chronic urinary tract infection Coronary artery disease follows with CVA (cerebral vascular accident) Diabetes mellitus, type 2 Dyslipidemia Elevated INR Hard of hearing History of basal cell carcinoma removed History of pulmonary embolism early , post op complication > Warfarin History of SCC (squamous cell carcinoma) of skin removed Hypertension Myocardial Infarction early On anticoagulant therapy warfarin daily PAF (paroxysmal atrial fibrillation) Pancreatic cyst just monitoring Peripheral neuropathy bilat legs Restless leg syndrome Sleep apnea cpap Stroke 2017 > no residual effects > [facility] > was in therapy for reading for a while, all better now > doesn't see neuro anymore T2DM (type 2 diabetes mellitus) Thoracic aortic aneurysm follows with Dr. Poole with [facility]> last checked around October 2020 > unsure of size Urinary retention on occasion, meds help per pt Surgical History History of cardiac cath several > late 1989's early , last one 2007> no stents any time History of cataract surgery right History of colonoscopy last 12/09/21 @ [facility] History of esophagogastroduodenoscopy (EGD) History of tooth extraction Hx of tonsillectomy Status post lumbar laminectomy Status post recent transurethral resection of prostate Family History Father Prostate cancer Diabetes Heart disease Hypertension Other No family history of adverse response to anesthesia Social History Smoking Status: Never smoker Second Hand Exposure: No; Do You Dip or Chew Tobacco: No; Hx Alcohol Use: No Hx Substance Use: No Preferred Language: Chinese Communication Ability: Effective Airport Operations Supervisor Required: No Beliefs That Will Affect Care: None marital status: Current Living Situation: Spouse Current Living Situation Comment: Lives with and son current occupational status: retired Other Information That Helps Us Care for You: No Feels Safe at Home: Yes Safety Concerns: Feels Safe At This Time Diet: regular Assistive Devices: CPAP, Denture - Upper, Glasses, Hearing Aid - Bilateral and Walker Review of Systems Review of Systems: As per HPI, all other systems reviewed and negative Physical Exam Physical Exam: GENERAL: Comfortable, pleasant, slightly hard of hearing, no respiratory distress SKIN: Pallor, warm HEENT: Alopecia, pale palpebral conjunctivae, no ptosis, moist buccal mucosa NECK : Supple, no tenderness CHEST : CTA, no tenderness HEART : RRR, no obvious murmurs ABDOMEN: Some distention, nontender BACK : Mid back tenderness EXTREMITIES : Tender right thigh ecchymotic swelling, no other conspicuous deformities noted NEUROLOGIC : Coherent, no facial asymmetry, slightly hard of hearing, gait and stance not assessed Results & Data Results & Data Vital Signs (Past 12 Hours) Vital Signs Temp Pulse Resp BP Pulse Ox O2 Del Method 01/26/24 22:00 90 24 133/82 99 01/26/24 21:30 84 16 122/65 92 01/26/24 21:06 88 25 H 92 01/26/24 21:00 115/69 01/26/24 20:45 90 21 91 01/26/24 20:36 97/61 L 01/26/24 20:36 97/61 L 01/26/24 20:36 93 H 20 97/61 L 90 Room Air 01/26/24 20:20 98 H 01/26/24 19:56 36.9 C 55 L 18 92/50 L 95 Room Air Laboratory Results Laboratory Results WBC 10.29 K/ul (4.8-10.8) 01/26/24 20:22 RBC 3.89 M/uL (4.70-6.10) L 01/26/24 20:22 Hgb 12.0 g/dl (14.0-18.0) L 01/26/24 20:22 Hct 36.0 % (42.0-52.0) L 01/26/24 20:22 MCV 92.5 fL (80.0-100.0) 01/26/24 20:22 MCH 30.8 pg (25.0-34.0) 01/26/24 20:22 MCHC 33.3 g/dL (32.0-36.0) 01/26/24 20:22 RDW Std Deviation 48.1 fL (36.4-46.3) H 01/26/24 20:22 RDW Coeff of Argelia 14.1 % (11.5-14.5) 01/26/24 20:22 Plt Count 208 K/uL (130-400) 01/26/24 20:22 MPV 10.1 fL (9.4-12.4) 01/26/24 20:22 Immature Gran % (Auto) 0.4 % 01/26/24 20:22 Neut % (Auto) 75.9 % 01/26/24 20:22 Lymph % (Auto) 13.6 % 01/26/24 20:22 Duchesne % (Auto) 9.1 % 01/26/24 20:22 Eos % (Auto) 0.8 % 01/26/24 20:22 Baso % (Auto) 0.2 % 01/26/24 20:22 Neut # (Auto) 7.81 K/uL (1.40-6.50) H 01/26/24 20:22 Lymph # (Auto) 1.40 K/uL (1.20-3.40) 01/26/24 20:22 Duchesne # (Auto) 0.94 K/uL (0.11-0.59) H 01/26/24 20:22 Eos # (Auto) 0.08 K/uL (0.00-0.50) 01/26/24 20:22 Baso # (Auto) 0.02 K/uL (0.00-0.20) 01/26/24 20:22 Immature Gran # (Auto) 0.04 K/uL (0.01-0.20) 01/26/24 20:22 PT 51.3 Seconds (9.0-12.0) H 01/26/24 20:22 INR 5.5 (0.9-1.1) H 01/26/24 20:22 APTT 46 Seconds (21-31) H 01/26/24 20:22 PTT Ratio 1.7 01/26/24 20:22 Sodium 137 mmol/L (136-145) 01/26/24 20:22 Potassium 3.9 mmol/L (3.5-5.1) 01/26/24 20:22 Chloride 104 mmol/L (98-107) 01/26/24 20:22 Carbon Dioxide 22 mmol/L (21-32) 01/26/24 20:22 Anion Gap 11 (3-11) 01/26/24 20:22 BUN 44 mg/dl (6-23) H 01/26/24 20:22 Creatinine 1.25 mg/dl (0.6-1.4) 01/26/24 20:22 Est Cr Clr Drug Dosing 55.9 ml/min 01/26/24 20:22 Est GFR ( Amer) 62.2 ml/min 01/26/24 20:22 Est GFR (Non-Af Amer) 53.7 ml/min 01/26/24 20:22 BUN/Creatinine Ratio 35.2 (10-20) H 01/26/24 20:22 Glucose 164 mg/dl (70-99(Fasting)) H 01/26/24 20:22 Calcium 9.6 mg/dl (8.6-10.3) 01/26/24 20:22 Magnesium 1.8 mg/dl (1.7-2.4) 01/26/24 20:22 Total Bilirubin 1.3 mg/dl (0.2-1.0) H 01/26/24 20:22 AST 19 U/L (13-39) 01/26/24 20:22 ALT 10 U/L (7-52) 01/26/24 20:22 Alkaline Phosphatase 46 U/L (34-104) 01/26/24 20:22 Total Creatine Kinase 309 U/L (30-223) H 01/26/24 20:22 Troponin I High Sens 17.6 pg/ml (0-20) 01/26/24 20:22 Total Protein 6.2 gm/dl (6.0-8.3) 01/26/24 20:22 Albumin 4.0 gm/dl (3.4-5.0) 01/26/24 20:22 Globulin 2.2 gm/dl (2.5-4.0) L 01/26/24 20:22 Albumin/Globulin Ratio 1.8 (0.9-2) 01/26/24 20:22 TSH 4.513 uIu/ml (0.300-4.500) H 01/26/24 20:22 Free T4 0.82 ng/dl (0.61-1.60) 01/26/24 20:22 Urine Color See Comment 01/26/24 20:40 Urine Appearance Turbid (Clear) A 01/26/24 20:40 Urine pH Not Reportable 01/26/24 20:40 Ur Specific [place] 1.025 (1.000-1.030) 01/26/24 20:40 Urine Protein Not Reportable 01/26/24 20:40 Urine Glucose (UA) Not Reportable 01/26/24 20:40 Urine Ketones Not Reportable 01/26/24 20:40 Urine Blood Not Reportable 01/26/24 20:40 Urine Nitrite Not Reportable 01/26/24 20:40 Urine Bilirubin Not Reportable 01/26/24 20:40 Urine Urobilinogen Not Reportable 01/26/24 20:40 Ur Leukocyte Esterase Not Reportable 01/26/24 20:40 Urine RBC >20 /hpf (0-2) H 01/26/24 20:40 Urine WBC 0-5 /hpf (0-5) 01/26/24 20:40 Ur Epithelial Cells 0-2 /hpf (0-2) 01/26/24 20:40 Urine Bacteria None Seen (None Seen) 01/26/24 20:40 Blood Type O Positive 01/26/24 20:22 Antibody Screen NEGATIVE 01/26/24 20:22 Diagnostic Findings EKG as per my interpretation : Rate 95, NSR, LAD, LAFB, LVH, T wave abnormalities lateral leads, PVCs
[2024-01-26] MEDS ORDERED: PROMETHAZINE HCL 6.25 MG in SODIUM CHLORIDE 0.9% 50 ML IV PRN (22:35)
[2024-01-26] MEDS ORDERED: ACETAMINOPHEN 325 MG TAB PO PRN (22:35)
[2024-01-26 22:58] LABS: Hematocrit (blood only) 34.5 % (42.0-52.0); Hemoglobin 11.1 g/dl (14.0-18.0)
[2024-01-26] MEDS: MAGNESIUM SULFATE / D5W 1 GM/100 ML BAG IV ONE (23:03)
[2024-01-26] MEDS: SODIUM CHLORIDE 0.9% 1,000 ML IV ONE (23:04)
[2024-01-27] MEDS ORDERED: DEXTROSE 50% 50 ML SYRINGE IV PRN (00:19)
[2024-01-27] MEDS ORDERED: GLUCAGON FOR INJ 1 MG VIAL SQ PRN (00:19)
[2024-01-27] MEDS ORDERED: GLUCOSE 40% GEL 15 GM TUBE PO PRN (00:19)
[2024-01-27] MEDS ORDERED: GLUCOSE 10 TAB/TUBE PO PRN (00:19)
[2024-01-27] MEDS ORDERED: CARBOHYDRATES FOR HYPOGLYCEMIA PO PRN (00:19)
[2024-01-27] MEDS: INSULIN ASPART PER UNIT CHARGE SC SCH (00:32)
[2024-01-27] MEDS: LORazepam 0.5 MG TAB PO PRN (00:53)
--- NOTE | 2024-01-27 02:58 | CT Scan Report ---
Exam(s): CT EXTREMITY RIGHT LOWER Without Contrast EXAM: CT Right Lower Extremity Without Intravenous Contrast CLINICAL HISTORY: Reason for exam: pain/swelling. TECHNIQUE: Axial computed tomography images of the right lower extremity without intravenous contrast. CTDI is 24.91 mGy and DLP is 1536.83 mGy-cm. Automated exposure control was utilized for the study. A dose lowering technique was utilized adhering to the principles of ALARA. COMPARISON: No relevant prior studies available. FINDINGS: Bones/joints: Incidental note is made of a large exostosis projecting off of the proximal femoral diaphysis. No acute fracture. No dislocation. Soft tissues: Unremarkable. Vasculature: Laboratory changes about the common femoral artery with a moderate size retroperitoneal hematoma. Hemorrhage is also seen extending into the right thigh musculature. IMPRESSION: Retroperitoneal hematoma incompletely evaluated on this exam. Hemorrhage extends into the right thigh. Electronically signed by: Alex Warner MD 01/27/24 02:57 AM
[2024-01-27 05:25] LABS: Basophils # (auto) 0.03 K/uL (0.00-0.20); Basophils % (auto) 0.4 %; Eosinophils # (auto) 0.13 K/uL (0.00-0.50); Eosinophils % (auto) 1.6 %; Hematocrit (blood only) 32.2 % (42.0-52.0); Hemoglobin 10.7 g/dl (14.0-18.0); Immature Granulocytes # (auto) 0.04 K/uL (0.01-0.20); Immature Granulocytes % (auto) 0.5 %; Lymphocytes # (auto) 1.13 K/uL (1.20-3.40); Lymphocytes % (auto) 13.5 %; Mean Corpuscular Hemoglobin 31.2 pg (25.0-34.0); Mean Corpuscular Hgb Conc 33.2 g/dL (32.0-36.0); Mean Corpuscular Volume 93.9 fL (80.0-100.0); Mean Platelet Volume 10.7 fL (9.4-12.4); Monocytes # (auto) 0.85 K/uL (0.11-0.59); Monocytes % (auto) 10.1 %; Neutrophils % (auto) 73.9 %; Platelet Count 176 K/uL (130-400); RDW Coefficient of Variation 14.1 % (11.5-14.5); RDW Standard Deviation 48.6 fL (36.4-46.3); Red Blood Count 3.43 M/uL (4.70-6.10); White Blood Count 8.38 K/ul (4.8-10.8)
[2024-01-27 05:44] LABS: Calcium 8.1 mg/dl (8.6-10.3); Creatinine Clr Calc Pharmacy 75.9 ml/min; Est GFR (African American) 90.1 ml/min; Est GFR (Non-African American) 77.7 ml/min; Potassium 3.8 mmol/L (3.5-5.1)
[2024-01-27 05:52] LABS: INR 1.6 (0.9-1.1); Prothrombin Time 16.8 Seconds (9.0-12.0)
[2024-01-27] MEDS: oxyCODONE HCL IR 5 MG TAB (IMMEDIATE RELEASE) PO PRN (06:29)
[2024-01-27] MEDS: LACTATED RINGER'S 1,000 ML IV SCH (06:42)
--- NOTE | 2024-01-27 07:51 | Hospitalist Progress Note ---
Date of Service January 27, 2024 Assessment & Plan (1) Hypotension: Plan Pt is an 83yoM with PMHx significant for CAD status post stent, hypertension, hyperlipidemia, hx PAF/hx PE/recurrent CVA/cryptogenic stroke on Coumadin, PVD (thoracic aortic aneurysm),ABDULLAHI on CPAP, BPH/chronic UTI on chronic methenamine Rx, DM2 on oral medications, chronic back pain presenting with hematuria and expanding thigh hematoma. R iliopsoas Hematoma Retroperitoneal Bleed Supratherapeutic INR Chronic Anemia Pt presenting with bruising and expanding thigh hematoma, hematuria INR 5.5 on admission, s/p Vit K, INR now 1.6 hgb of 12 on admission, down to 10.7 Hemoglobin drop from outpatient baseline of [address] femur noting "Retroperitoneal hematoma incompletely evaluated on this exam. Hemorrhage extends into the right thigh." CTA abd/pelvis noting "Right iliopsoas intramuscular hematoma with extension of hemorrhage into the right retroperitoneal space. Overall, there is a moderate amount of intramuscular/retroperitoneal hemorrhage.No evidence for active arterial extravasation." Admitting provider discussed with General Surgery, appreciate recs -cta abd/pelvis -q6h h/h checks Hold home warfarin and aspirin at this time Follow H&H, transfuse PRBC to maintain hemoglobin above 8 and or for symptomatic anemia Consider inpatient Hematology input RE NOAC Rx in place of Coumadin prior to discharge given recurrent episodes of bleeding from Coumadin coagulopathy Vitamin K to reverse coagulopathy given significant hemoglobin drop AM anemia panel Continue home folate, iron and b12 supplements Pt currently hemodynamically stable Continue to monitor Hypotension Secondary to hypovolemia secondary to RLE bleed secondary to Coumadin coagulopathy Receive IV fluids Holding home antihypertensive meds Continue to monitor, resume as able UTI Pt with indwelling cath recent Cipro Rx for UTI repeat urine Cx pending Continue to follow Cx Rhabdomyolysis CK elevated on admission at 309- 341 Mild rhabdomyolysis possibly from R thigh bleed IV fluids Hold home statin Continue to monitor with AM labs hx PAF hx PE recurrent CVA cryptogenic stroke on Coumadin INR 5.5 on admission, s/p Vit K, INR now 1.6 hx CAD status post stent/PVD Stable hyperlipidemia on statin Rx, holding as above BPH/chronic UTI on chronic methenamine Rx 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 Diet: HH/DMII DVT prophylaxis: warfarin on hold, INR reversed with Vit K. SCDs if INR less than 2 while Coumadin on hold Dispo: PT/OT for further recs once medically stable Admission and Anticipated Discharge Date Admission Date: January 26, 2024 Subjective pt was seen laying in bed. Hard of hearing. States right thigh without pain. Denies dizziness, SOB Review of Systems Review of Systems: All systems reviewed & are unremarkable except as noted in Subjective Physical Exam Physical Exam: General: Alert, orientedx3. No acute distress Skin: bruising over right thigh and hip noted Psych: Appropriate mood and affect Neuro: hard of hearing HEENT: NC/AT CV: RRR Resp: Breath sounds clear bilaterally, no increased effort of breathing. Abdomen: Soft, nontender, nondistended : zuniga in place Extremities: bruising over right thigh and hip noted Results & Data Results & Data Vital Signs (Past 12 Hours) Vital Signs Temp Pulse Pulse Pulse Resp BP BP 01/27/24 07:35 66 01/27/24 06:26 91 H 121/73 01/27/24 02:35 36.9 C 85 16 92/53 L 01/27/24 00:36 01/27/24 00:36 36.9 C 90 18 129/80 01/27/24 00:19 36.9 C 90 18 129/80 01/27/24 00:19 01/27/24 00:15 93 H 01/26/24 23:48 01/26/24 23:33 95 H 21 129/98 01/26/24 23:15 83 19 105/78 01/26/24 22:39 95 H 23 01/26/24 22:30 88 16 150/92 H 01/26/24 22:27 88 16 01/26/24 22:00 133/82 01/26/24 22:00 90 24 133/82 01/26/24 21:30 84 16 122/65 01/26/24 21:06 88 25 H 01/26/24 21:00 115/69 01/26/24 20:45 90 21 01/26/24 20:36 97/61 L 01/26/24 20:36 97/61 L 01/26/24 20:36 93 H 20 97/61 L 01/26/24 20:20 98 H 01/26/24 19:56 36.9 C 55 L 18 92/50 L Pulse Ox Pulse Ox O2 Del Method O2 Del Method 01/27/24 07:35 01/27/24 06:26 01/27/24 02:35 95 Room Air 01/27/24 00:36 Room Air 01/27/24 00:36 94 Room Air 01/27/24 00:19 94 Room Air 01/27/24 00:19 94 Room Air 01/27/24 00:15 01/26/24 23:48 Room Air 01/26/24 23:33 95 Room Air 01/26/24 23:15 94 01/26/24 22:39 96 01/26/24 22:30 95 Room Air 01/26/24 22:27 95 01/26/24 22:00 01/26/24 22:00 99 01/26/24 21:30 92 01/26/24 21:06 92 01/26/24 21:00 01/26/24 20:45 91 01/26/24 20:36 01/26/24 20:36 01/26/24 20:36 90 Room Air 01/26/24 20:20 01/26/24 19:56 95 Room Air Diagnostic Findings Femur CT 01/26/24 22:34 Exam(s): CT EXTREMITY RIGHT LOWER Without Contrast EXAM: CT Right Lower Extremity Without Intravenous Contrast CLINICAL HISTORY: Reason for exam: pain/swelling. TECHNIQUE: Axial computed tomography images of the right lower extremity without intravenous contrast. CTDI is 24.91 mGy and DLP is 1536.83 mGy-cm. Automated exposure control was utilized for the study. A dose lowering technique was utilized adhering to the principles of ALARA. COMPARISON: No relevant prior studies available. FINDINGS: Bones/joints: Incidental note is made of a large exostosis projecting off of the proximal femoral diaphysis. No acute fracture. No dislocation. Soft tissues: Unremarkable. Vasculature: Laboratory changes about the common femoral artery with a moderate size retroperitoneal hematoma. Hemorrhage is also seen extending into the right thigh musculature. IMPRESSION: Retroperitoneal hematoma incompletely evaluated on this exam. Hemorrhage extends into the right thigh. Electronically signed by: Alex Warner MD 01/27/24 02:57 AM Abdomen/Pelvis CTA 01/27/24 06:57 CT angio abdomen pelvis w con CT DOSE: 1491.32 mGy.cm CLINICAL HISTORY: Follow-up retroperitoneal bleed. TECHNIQUE: Multiaxial CT images of the abdomen and pelvis were performed following the intravenous administration of contrast. 3-D/maximum intensity proj ection images in the sagittal and coronal planes were also obtained for the CTA portion of the examination. A dose lowering technique was utilized adhering to the principles of ALARA. COMPARISON STUDY: Right femur CT 01/28/2024. Abdomen and pelvis CT 10/18/2020. FINDINGS: Small right and trace left pleural effusions. Small amount of consolidation within the right lower lobe posteriorly. The aortic root measures approximately 4.9 cm in diameter. Ascending thoracic aorta measures up to 4.6 cm in diameter. This is similar to the prior study. There is a calcified granuloma within the right lower lobe. No pneumoperitoneum. No pneumatosis. Posterior decompression fusion within the lumbar spine. No acute fractures. Cholelithiasis. No gallbladder wall thickening. The liver, spleen, and adrenal glands unremarkable. There are are a few subcentimeter hypodense lesions within the pancreas. 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 There are few left renal cysts. No hydronephrosis. Moderate calcified plaque within the normal caliber abdominal aorta. 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 Mild aneurysmal dilatation of the distal right common iliac artery measuring 1.9 cm. This remains unchanged. There is a Zuniga catheter within the bladder. The prostate gland is enlarged. Moderate fecal retention. No bowel wall thickening or obstruction. Normal appendix. There is a small left inguinal hernia containing a knuckle small bowel. There is also a small fat-containing right inguinal hernia. There is a right iliopsoas intramuscular hematoma with extension of the hemorrhage into the right retroperitoneal space. Overall, there is a moderate amount of intramuscular/retroperitoneal hemorrhage. Subcutaneous edema within the right p roximal thigh. Mild presacral edema/hemorrhage is noted. No evidence for active arterial extravasation. IMPRESSION: 1. Right iliopsoas intramuscular hematoma with extension of hemorrhage into the right retroperitoneal space. Overall, there is a moderate amount of intramuscular/retroperitoneal hemorrhage. 2. No evidence for active arterial extravasation. 3. Small right and trace left pleural effusions. 4. Cholelithiasis. 5. No bowel wall thickening or obstruction. 6. Small left inguinal hernia containing a knuckle small bowel. 7. Additional findings as described above. ACT 112: Negative or not required by law. Electronically signed by: Tonio Underwood M.D. 01/27/2024 9:52 AM
[2024-01-27] MEDS: PANTOprazole 40 MG TAB PO SCH (08:30)
[2024-01-27] MEDS: TAMSULOSIN HCL 0.4 MG CAP PO SCH (08:30)
[2024-01-27] MEDS: CYANOCOBALAMIN (B-12) 500 MCG TABLET PO SCH (08:30)
[2024-01-27] MEDS: FOLIC ACID 1 MG TAB PO SCH (08:31)
[2024-01-27] MEDS: OPTIRAY 320 125ml IV ONE (08:59)
--- NOTE | 2024-01-27 09:55 | CT Scan Report ---
CT angio abdomen pelvis w con CT DOSE: 1491.32 mGy.cm CLINICAL HISTORY: Follow-up retroperitoneal bleed. TECHNIQUE: Multiaxial CT images of the abdomen and pelvis were performed following the intravenous ad ministration of contrast. 3-D/maximum intensity projection images in the sagittal and coronal planes were also obtained for the CTA portion of the examination. A dose lowering technique was utilized ad loly to the principles of ALARA. COMPARISON STUDY: Right femur CT 01/28/2024. Abdomen and pelvis CT 10/18/2020. FINDINGS: Small right and trace left pleural effusions. Small amount of consolidation within the righ t lower lobe posteriorly. The aortic root measures approximately 4.9 cm in diameter. Ascending thorac ic aorta measures up to 4.6 cm in diameter. This is similar to the prior study. There is a calcified granuloma within the right lower lobe. No pneumoperitoneum. No pneumatosis. Posterior decompression f usion within the lumbar spine. No acute fractures. Cholelithiasis. No gallbladder wall thickening. Th e liver, spleen, and adrenal glands unremarkable. There are are a few subcentimeter hypodense lesions within the pancreas. 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 There are f ew left renal cysts. No hydronephrosis. Moderate calcified plaque within the normal caliber abdominal aorta. 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 This remains unchanged. There is a Shahid catheter within the bladder. The prostate gland is enlarged. Moderate fecal retention. No bow el wall thickening or obstruction. Normal appendix. There is a small left inguinal hernia containing a knuckle small bowel. There is also a small fat-containing right inguinal hernia. There is a right i liopsoas intramuscular hematoma with extension of the hemorrhage into the right retroperitoneal space . Overall, there is a moderate amount of intramuscular/retroperitoneal hemorrhage. Subcutaneous edema within the right proximal thigh. Mild presacral edema/hemorrhage is noted. No evidence for active ar terial extravasation. IMPRESSION: 1. Right iliopsoas intramuscular hematoma with extension of hemorrhage into the right retroperitoneal space. Overall, there is a moderate amount of intramuscular/retroperitoneal hemorrhage. 2. No evidence for active arterial extravasation. 3. Small right and trace left pleural effusions. 4. Cholelithiasis. 5. No bowel wall thickening or obstruction. 6. Small left inguinal hernia containing a knuckle small bowel. 7. Additional findings as described above. ACT 112: Negative or not required by law. Electronically signed by: Tonio Underwood M.D. 01/27/2024 9:52 AM
[2024-01-27 10:23] LABS: Hematocrit (blood only) 29.6 % (42.0-52.0); Hemoglobin 9.9 g/dl (14.0-18.0)
--- NOTE | 2024-01-27 10:58 | Surgery Consultation ---
Date of Consultation January 27, 2024 Assessment & Plan (1) Hematoma: Iliopsoas hematoma without evidence for active extravasation. H/H drifted from 12 to 9.9, on q6 hour checks. BP is stable from hypotension at admission. HR WNL. Recommend to continue q6 H/H. From a cardiac standpoint, patient will become a ppropriate for transfusion if his H/H decreases to below 8. Transfuse as needed. If his H/H does not stablize and the patient begins to require multiple transfusions, may need to repeat the CTA and if active bleeding, consideration for transfer to a center with IR capability for vessel embolization. Will follow up in the am. Other medical management per the medicine team. History of Present Illness Reason for Consultation: Hematoma Attending Physician: Armida Walters MD History of Present Illness Mr. 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 INR was elevated over [address] at [address] and a CT performed at that time revealed an incompletely evaluated retroperitoneal hematoma with extension into the right thigh. The patient's Coumadin was reversed and he was admitted to medicine, surgery was consulted. CTA A/P was suggested that was completed this am revealing an iliopsoas hematoma extending into the retroperitoneum with right thigh extension and no evidence for active extravasation. This am he continues to c/o right thigh pain. He denies abdominal pain. Allergies Allergy/AdvReac Type Severity Reaction Status Date / Time propoxyphene Allergy Intermediate Hallucinati Verified 12/26/23 10:53 ng omeprazole Allergy Unknown Unknown Verified 12/26/23 10:53 ELINOR Inhibitors AdvReac Mild Cough Verified 12/26/23 10:53 gabapentin AdvReac Mild Nausea Verified 12/26/23 10:53 Home Medications Medication Instructions Recorded Confirmed Type cetirizine 10 mg tablet (Zyrtec) 10 mg PO PM 08/14/19 01/26/24 History folic acid 1 mg tablet 1 mg PO QAM 08/14/19 01/26/24 History losartan 50 mg tablet 50 mg PO PM 08/14/19 01/26/24 History metoprolol succinate 25 mg 25 mg PO QAM 08/14/19 01/26/24 History tablet,extended release 24 hr nitroglycerin 0.4 mg sublingual 0.4 mg sublingual UD PRN Chest Pain 08/14/19 01/26/24 History tablet pantoprazole 40 mg tablet,delayed 40 mg PO QAM 08/14/19 01/26/24 History release polyethylene glycol 3350 17 17 g PO DAILY PRN Constipation 08/14/19 01/26/24 History gram/dose oral powder (Miralax) rosuvastatin 20 mg tablet 20 mg PO PM 08/14/19 01/26/24 History cholecalciferol (vitamin D3) 25 25 mcg PO PM 05/22/20 01/26/24 History mcg (1,000 unit) tablet (Vitamin D3) lorazepam 1 mg tablet 0.5 mg PO PM PRN Insomnia 05/22/20 01/26/24 History ropinirole 0.25 mg tablet 0.25 mg PO HS 03/11/21 01/26/24 History ferrous sulfate 325 mg (65 mg 325 mg PO QPM 12/05/21 01/26/24 History iron) tablet (Iron (ferrous sulfate)) psyllium husk 3.4 gram/5.4 gram 1 tsp PO DAILY PRN Constipation 12/05/21 01/26/24 History oral powder (Metamucil) metformin 1,000 mg tablet 1,000 mg PO BID 04/08/22 01/26/24 History warfarin 2.5 mg tablet 2.5 mg PO UD 06/21/22 01/26/24 History methenamine hippurate 1 gram tablet 1 g PO BID #180 tabs 12/20/22 01/26/24 Rx tamsulosin 0.4 mg capsule See Rx Instructions .Route 11/21/23 01/26/24 Rx .COMPLEX #90 caps amlodipine 2.5 mg tablet 2.5 mg PO QAM 01/26/24 01/26/24 History calcipotriene 0.005 % topical cream 1 applic topical .BID UD 01/26/24 01/26/24 History cyanocobalamin (vitamin B-12) 1,000 mcg PO DAILY 01/26/24 01/26/24 History 1,000 mcg tablet (Vitamin B-12) duloxetine 60 mg capsule,delayed 60 mg PO QPM 01/26/24 01/26/24 History release dutasteride 0.5 mg capsule 0.5 mg PO HS 01/26/24 01/26/24 History Patient History Medical History Actinic keratosis BPH (benign prostatic hyperplasia) Chronic urinary tract infection Coronary artery disease follows with CVA (cerebral vascular accident) Diabetes mellitus, type 2 Dyslipidemia Elevated INR Hard of hearing History of basal cell carcinoma removed History of pulmonary embolism early , post op complication > Warfarin History of SCC (squamous cell carcinoma) of skin removed Hypertension Myocardial Infarction early On anticoagulant therapy warfarin daily PAF (paroxysmal atrial fibrillation) Pancreatic cyst just monitoring Peripheral neuropathy bilat legs Restless leg syndrome Sleep apnea cpap Stroke 2017 > no residual effects > [facility] > was in therapy for reading for a while, all better now > doesn't see neuro anymore T2DM (type 2 diabetes mellitus) Thoracic aortic aneurysm follows with Dr. Poole with [facility]> last checked around October 2020 > unsure of size Urinary retention on occasion, meds help per pt Surgical History History of cardiac cath several > late 1989's early , last one 2007> no stents any time History of cataract surgery right History of colonoscopy last 12/09/21 @ [facility] History of esophagogastroduodenoscopy (EGD) History of tooth extraction Hx of tonsillectomy Status post lumbar laminectomy Status post recent transurethral resection of prostate Family History Father Prostate cancer Diabetes Heart disease Hypertension Other No family history of adverse response to anesthesia Social History Smoking Status: Never smoker Second Hand Exposure: No; Do You Dip or Chew Tobacco: No; Hx Alcohol Use: No Hx Substance Use: No Preferred Language: Trinidadian Communication Ability: Effective Reception Manager Required: No Beliefs That Will Affect Care: None marital status: Current Living Situation: Spouse Current Living Situation Comment: Lives with and son current occupational status: retired Other Information That Helps Us Care for You: No Feels Safe at Home: Yes Safety Concerns: Feels Safe At This Time Diet: regular Assistive Devices: CPAP, Denture - Upper, Glasses, Hearing Aid - Bilateral and Walker Review of Systems Constitutional: no fever, no chills and no sweats Respiratory: no cough, no chest congestion, no pain on inspiration and no wheezing Cardiovascular: no chest pain, no dyspnea and no syncope Gastrointestinal: no abdominal pain, no bloating, no nausea and no vomiting Physical Exam Constitutional: average body habitus; not ill appearing, not in distress and not diaphoretic Respiratory: + abnormal respiratory effort, no respir atory distress, no labored breathing and does not use accessory muscles Gastrointestinal (Abdomen): Inspection/Auscultation: abdomen normal to inspection; abdomen not distended Percussion/Palpation: abdomen soft; abdomen nontender, no guarding and abdomen not rigid Skin: Moderate purple blue bruising at the right upper thigh Results & Data Vital Signs (Past 12 Hours) Vital Signs Temp Pulse Pulse Pulse Resp BP BP 01/27/24 07:45 36.8 C 64 16 120/71 01/27/24 07:35 66 01/27/24 06:26 91 H 121/73 01/27/24 02:35 36.9 C 85 16 92/53 L 01/27/24 00:36 01/27/24 00:36 36.9 C 90 18 129/80 01/27/24 00:19 36.9 C 90 18 129/80 01/27/24 00:19 01/27/24 00:15 93 H 01/26/24 23:48 01/26/24 23:33 95 H 21 129/98 01/26/24 23:15 83 19 105/78 Pulse Ox Pulse Ox O2 Del Method O2 Del Method 01/27/24 07:45 94 Room Air 01/27/24 07:35 01/27/24 06:26 01/27/24 02:35 95 Room Air 01/27/24 00:36 Room Air 01/27/24 00:36 94 Room Air 01/27/24 00:19 94 Room Air 01/27/24 00:19 94 Room Air 01/27/24 00:15 01/26/24 23:48 Room Air 01/26/24 23:33 95 Room Air 01/26/24 23:15 94 Diagnostic Findings CTA AP this am: IMPRESSION: 1. Right iliopsoas intramuscular hematoma with extension of hemorrhage into the right retroperitoneal space. Overall, there is a moderate amount of intramuscular/retroperitoneal hemorrhage. 2. No evidence for active arterial extravasation. 3. Small right and trace left pleural effusions. 4. Cholelithiasis. 5. No bowel wall thickening or obstruction. 6. Small left inguinal hernia containing a knuckle small bowel. 7. Additional findings as described above. PG Care Time/CCT Total # of Minutes Spent Total Time Spent with Patient: Total time spent is greater than 50% in coordination of care (as documented) at patient's floor/unit and/or counseling patient: Coding Level of Care Code 99975 INT INP/OBS CARE 1/40MIN Diagnoses Hematoma T14.8XXA
[2024-01-27] MEDS: METHENAMINE HIPPURATE 1 GM TAB PO SCH (12:41)
--- NOTE | 2024-01-27 12:54 | Electrocardiogram Report ---
Test Reason : Blood Pressure : / mmHG Vent. Rate : 095 BPM Atrial Rate : 095 BPM P-R Int : 232 ms QRS Dur : 154 ms QT Int : 376 ms P-R-T Axes : 001 -47 080 degrees QTc Int : 472 ms Sinus rhythm with 1st degree A-V block with occasional , and consecutive Premature ventricular comple xes Left axis deviation Left ventricular hypertrophy with QRS widening ( R in aVL ) Abnormal ECG When compared with ECG of 18-OCT-2020 07:57, Premature ventricular complexes are now Present Premature atrial complexes are no longer Present Inverted T waves have replaced nonspecific T wave abnormality in Lateral leads Confirmed by Jairo Rubin ([id number]) on 01/27/2024 12:54:14 PM Referred By: REFERRED SELF Confirmed By:Jairo Rubin
[2024-01-27 15:47] LABS: Hematocrit (blood only) 31.1 % (42.0-52.0); Hemoglobin 10.2 g/dl (14.0-18.0)
[2024-01-27] MEDS: POLYETHYLENE (MIRALAX) 17 GM PACK PO PRN (20:38)
[2024-01-27] MEDS: CETIRIZINE HCL 10 MG TABLET PO SCH (20:41)
[2024-01-27] MEDS: FINASTERIDE 5 MG TAB PO SCH (20:41)
[2024-01-27] MEDS: FERROUS SULFATE 325 MG TAB PO SCH (20:41)
[2024-01-27] MEDS: DULoxetine HCL 60 MG CAP PO SCH (20:41)
[2024-01-27] MEDS: rOPINIRole HCL 0.25 MG TABLET PO SCH (20:41)
[2024-01-27 23:47] LABS: Hematocrit (blood only) 30.9 % (42.0-52.0); Hemoglobin 10.3 g/dl (14.0-18.0)
[2024-01-28 07:36] LABS: Basophils # (auto) 0.03 K/uL (0.00-0.20); Basophils % (auto) 0.4 %; Eosinophils % (auto) 2.9 %; Hemoglobin 10.4 g/dl (14.0-18.0); Immature Granulocytes # (auto) 0.04 K/uL (0.01-0.20); Immature Granulocytes % (auto) 0.6 %; Lymphocytes # (auto) 1.14 K/uL (1.20-3.40); Lymphocytes % (auto) 16.7 %; Mean Corpuscular Hemoglobin 30.6 pg (25.0-34.0); Mean Corpuscular Hgb Conc 32.5 g/dL (32.0-36.0); Mean Corpuscular Volume 94.1 fL (80.0-100.0); Monocytes # (auto) 0.63 K/uL (0.11-0.59); Monocytes % (auto) 9.2 %; Neutrophils # (auto) 4.79 K/uL (1.40-6.50); Neutrophils % (auto) 70.2 %; Platelet Count 164 K/uL (130-400); RDW Coefficient of Variation 13.8 % (11.5-14.5); RDW Standard Deviation 47.3 fL (36.4-46.3); White Blood Count 6.83 K/ul (4.8-10.8)
[2024-01-28 07:45] LABS: Albumin Globulin Ratio 1.7 (0.9-2); Albumin Level 3.2 gm/dl (3.4-5.0); BUN Creatinine Ratio 24.1 (10-20); Bilirubin,Total 1.3 mg/dl (0.2-1.0); Calcium 8.5 mg/dl (8.6-10.3); Creatinine Clr Calc Pharmacy 79.9 ml/min; Est GFR (African American) 93.8 ml/min; Est GFR (Non-African American) 80.9 ml/min; Globulin 1.9 gm/dl (2.5-4.0); Magnesium 1.8 mg/dl (1.7-2.4); Phosphorus 3.1 mg/dl (2.5-4.9); Potassium 4.3 mmol/L (3.5-5.1); Total Protein 5.1 gm/dl (6.0-8.3)
[2024-01-28 07:49] LABS: INR 1.1 (0.9-1.1); Prothrombin Time 11.4 Seconds (9.0-12.0)
[2024-01-28 08:04] LABS: Ferritin 95.5 ng/ml (8-388)
[2024-01-28 08:09] LABS: Folate (Folic Acid),Ser orPlas 16.15 ng/ml (>5.38)
--- NOTE | 2024-01-28 10:06 | Surgery Progress Note ---
Date of Service January 28, 2024 Assessment & Plan (1) Retroperitoneal bleed: Plan: Pt here w/ retroperitoneal & intramuscular hematoma extending into the R thigh No concern for active extravasation on CTA yesterday Hbg stable at 10.4. Vitals stable Pt reports feeling a bit better. he denies any abdominal discomfort recommend warm compresses to R lateral thigh at dependant aspect where there is the interval development of edema and skin thickening can consider resuming blood thinners, start with hep gtt to ensure stability in hbg prior to resuming coumadin if any issues with ongoing bleeding would need to be transferred to tertiary center with IR capabilities for embolization No indication for surgical intervention reports + constipation. continue daily miralax until BMs. Had one dose yesterday. Admission and Anticipated Discharge Date Admission Date: January 26, 2024 Supervising Physician Co-Signing Physician Notes I have seen and examined this patient with the surgical PA, I agree with this plan. Subjective Pt reports feeling a bit better. was able to ambulate today with improved hip/leg pain with which he can now ambulate. Still with no abdominal discomfort. Physical Exam Physical Exam: awake/alert, no distress Respiratory: normal respiratory effort Gastrointestinal (Abdomen): Inspection/Auscultation: abdomen not distended Percussion/Palpation: abdomen soft; abdomen nontender Musculoskeletal: R anterior thigh bruising and swelling Results & Data Vital Signs (Past 12 Hours) Vital Signs Temp Pulse Resp BP Pulse Ox O2 Del Method O2 Del Method 01/28/24 07:20 98.6 F 73 16 151/72 H 94 Room Air 01/28/24 03:34 98.4 F 82 16 111/67 95 Room Air 01/28/24 00:12 Room Air 01/28/24 00:12 Room Air 01/27/24 23:28 98.6 F 90 16 108/67 96 Room Air PG Care Time/CCT Total # of Minutes Spent Total Time Spent with Patient: Total time spent is greater than 50% in coordination of care (as documented) at patient's floor/unit and/or counseling patient: Coding Level of Care Code 49115 SUB INP/OBS CARE 1/25MIN Diagnoses Retroperitoneal bleed R58
[2024-01-28] MEDS ORDERED: Heparin IV Adult Wt-Based Low-Dose *NO* INITIAL Bolus Protocol IV SCH (11:00)
[2024-01-28] MEDS: CYANOCOBALAMIN (B-12) 500 MCG TABLET PO SCH (13:03)
[2024-01-28] MEDS: POLYETHYLENE (MIRALAX) 17 GM PACK PO SCH (13:04)
[2024-01-28] MEDS: HEPARIN SODIUM/DEXTROSE 25,000 UNITS/500 ML BAG IV SCH (13:05)
--- NOTE | 2024-01-28 13:41 | Hospitalist Progress Note ---
Date of Service January 28, 2024 Assessment & Plan (1) Hypotension: Plan Pt is an 83yoM with PMHx significant for CAD status post stent, hypertension, hyperlipidemia, hx PAF/hx PE/recurrent CVA/cryptogenic stroke on Coumadin, PVD (thoracic aortic aneurysm),ABDULLAHI on CPAP, BPH/chronic UTI on chronic methenamine Rx, DM2 on oral medications, chronic back pain presenting with hematuria and expanding thigh hematoma. R iliopsoas Hematoma Retroperitoneal Bleed Supratherapeutic INR Chronic Anemia b12 deficiency Pt presenting with bruising and expanding thigh hematoma, hematuria INR 5.5 on admission, s/p Vit K, INR now 1.6 hgb of 12 on admission, went down to 10.7 Hemoglobin drop from outpatient baseline of [address] femur noting "Retroperitoneal hematoma incompletely evaluated on this exam. Hemorrhage extends into the right thigh." CTA abd/pelvis noting "Right iliopsoas intramuscular hematoma with extension of hemorrhage into the right retroperitoneal space. Overall, there is a moderate amount of intramuscular/retroperitoneal hemorrhage.No evidence for active arterial extravasation." General Surgery consulted, appreciate recs -recommend warm compresses to R lateral thigh at dependant aspect where there is the interval development of edema and skin thickening -can consider resuming blood thinners, start with hep gtt to ensure stability in hbg prior to resuming coumadin -if any issues with ongoing bleeding would need to be transferred to tertiary center with IR capabilities for embolization -No indication for surgical intervention -reports + constipation. continue daily miralax until BMs. Had one dose yesterday. Held home warfarin and aspirin Follow H&H, transfuse PRBC to maintain hemoglobin above 8 and or for symptomatic anemia Hematology consulted RE NOAC Rx in place of Coumadin given recurrent episodes of bleeding from Coumadin coagulopathy Vitamin K to reverse coagulopathy given significant hemoglobin drop AM anemia panel noting b12 deficiency Continue home folate, iron and b12 supplements- b2 supplement increased to 2000mcg daily Pt currently hemodynamically stable H/H stable IV heparin started per Gen Surg recs Continue to monitor Hypotension Secondary to hypovolemia secondary to RLE bleed secondary to Coumadin coagulopathy Received IV fluids Holding home antihypertensive meds Continue to monitor, resume as able Stable UTI Pt with indwelling cath recent Cipro Rx for UTI repeat urine Cx with growth of gram positive cocci, small amt Likely contaminant Rhabdomyolysis CK elevated on admission at 309- 341 Mild rhabdomyolysis possibly from R thigh bleed IV fluids Hold home statin Continue to monitor with AM labs hx PAF hx PE recurrent CVA cryptogenic stroke on Coumadin INR 5.5 on admission, s/p Vit K, INR now 1.6 hx CAD status post stent/PVD Stable hyperlipidemia on statin Rx, holding as above BPH/chronic UTI on chronic methenamine Rx 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 Diet: HH/DMII DVT prophylaxis: warfarin on hold, INR reversed with Vit K. SCDs if INR less than 2 while Coumadin on hold Dispo: PT/OT recommending return home Admission and Anticipated Discharge Date Admission Date: January 26, 2024 Subjective pt was seen laying in bed. Hard of hearing, no hearing aids in. Denies acute concerns. Review of Systems Review of Systems: All systems reviewed & are unremarkable except as noted in Subjective Physical Exam Physical Exam: General: Alert, orientedx3. No acute distress Skin: bruising over right thigh and hip noted Psych: Appropriate mood and affect Neuro: hard of hearing HEENT: NC/AT CV: RRR Resp: Breath sounds clear bilaterally, no increased effort of breathing. Abdomen: Soft, nontender, nondistended : zuniga in place Extremities: bruising over right thigh and hip noted Results & Data Results & Data Vital Signs (Past 12 Hours) Vital Signs Temp Pulse Pulse Resp BP BP Pulse Ox 01/28/24 11:17 36.7 C 100 H 16 162/80 H 94 01/28/24 10:23 88 01/28/24 07:20 37.0 C 73 16 151/72 H 94 01/28/24 03:34 36.9 C 82 16 111/67 95 O2 Del Method 01/28/24 11:17 Room Air 01/28/24 10:23 01/28/24 07:20 Room Air 01/28/24 03:34 Room Air
[2024-01-28 21:11] LABS: ANTI-Xa, UFH(UnfractionatedHep 0.19 IU/ml (0.3-0.7)
[2024-01-28] MEDS: HEPARIN SOD (PORCINE) 1000 UNIT/ML IV ONE (22:09)
[2024-01-29 04:24] LABS: Basophils # (auto) 0.03 K/uL (0.00-0.20); Basophils % (auto) 0.4 %; Eosinophils # (auto) 0.23 K/uL (0.00-0.50); Eosinophils % (auto) 3.3 %; Hematocrit (blood only) 30.8 % (42.0-52.0); Hemoglobin 10.4 g/dl (14.0-18.0); Immature Granulocytes # (auto) 0.04 K/uL (0.01-0.20); Immature Granulocytes % (auto) 0.6 %; Lymphocytes # (auto) 1.14 K/uL (1.20-3.40); Lymphocytes % (auto) 16.3 %; Mean Corpuscular Hemoglobin 31.2 pg (25.0-34.0); Mean Corpuscular Hgb Conc 33.8 g/dL (32.0-36.0); Mean Corpuscular Volume 92.5 fL (80.0-100.0); Mean Platelet Volume 10.2 fL (9.4-12.4); Monocytes # (auto) 0.64 K/uL (0.11-0.59); Monocytes % (auto) 9.2 %; Neutrophils # (auto) 4.91 K/uL (1.40-6.50); Neutrophils % (auto) 70.2 %; Platelet Count 180 K/uL (130-400); RDW Coefficient of Variation 13.7 % (11.5-14.5); RDW Standard Deviation 46.5 fL (36.4-46.3); Red Blood Count 3.33 M/uL (4.70-6.10); White Blood Count 6.99 K/ul (4.8-10.8)
[2024-01-29 04:33] LABS: Albumin Globulin Ratio 1.6 (0.9-2); Albumin Level 3.2 gm/dl (3.4-5.0); BUN Creatinine Ratio 23.7 (10-20); Bilirubin,Total 1.5 mg/dl (0.2-1.0); Calcium 8.5 mg/dl (8.6-10.3); Creatinine Clr Calc Pharmacy 91.5 ml/min; Est GFR (African American) 99.2 ml/min; Est GFR (Non-African American) 85.6 ml/min; Magnesium 1.7 mg/dl (1.7-2.4); Potassium 3.9 mmol/L (3.5-5.1); Total Protein 5.2 gm/dl (6.0-8.3)
[2024-01-29 04:39] LABS: ANTI-Xa, UFH(UnfractionatedHep 0.42 IU/ml (0.3-0.7)
[2024-01-29 04:42] LABS: Prothrombin Time 11.3 Seconds (9.0-12.0)
--- NOTE | 2024-01-29 06:57 | Oncology Consultation ---
Date of Consultation January 29, 2024 Assessment & Plan (1) Retroperitoneal bleed: (2) Supratherapeutic INR: Plan Patient high risk for recurrent VTE/cryptogenic CVA admitted with retroperitoneal bleeding due to supratherapeutic INR. Bleeding appears to have subsided with stable hemoglobin/hematocrit. Currently on heparin. -Since patient indicates that he has recurrent UTIs for which he requires antibiotics regularly, he would benefit from switching to a DOAC such as Eliquis which usually does not have any major interactions with antibiotics.Patient reluctant to switch to DOAC until his distribution systems serviceperson agrees with this. I will reach out to his outpatient distribution systems serviceperson to see if he is okay with patient switching to DOAC. If patient's declines DOAC, would need close monitoring of INR whenever he is on antibiotics. Thank you for this consult. Hematology follow peripherally while patient is in the hospital. Please feel free to call if you have any further questions. History of Present Illness Reason for Consultation: Anticoagulation recommendations in the setting of recurrent bleeding. 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 Patient presented to [facility] with bruising involving the right thigh. CT femur on 01/26/2024 revealed retroperitoneal hematoma extending to the right thigh. CTA abdomen and pelvis on 01/27/2024 revealed right iliopsoas intramuscular hematoma with extension of hemorrhage into the right retroperitoneal space with moderate amount of intramuscular/retroperitoneal hemorrhage and no evidence of active arterial extravasation. CTA chest on 01/29/2024 revealed no PE. Labs obtained on admission revealed INR of 5.5 for which he received vitamin K. Of note, he states that he had been recently started on ciprofloxacin for recurrent UTI. Of note, patient was admitted in March, for left thigh hematoma with INR that time was 2.6. He was admitted to [facility] in October, for gross hematuria with INR at the time of 4.2. He is currently on therapeutic unfractionated heparin with stable hemoglobin and hematocrit. Allergies Allergy/AdvReac Type Severity Reaction Status Date / Time propoxyphene Allergy Intermediate Hallucinati Verified 12/26/23 10:53 ng omeprazole Allergy Unknown Unknown Verified 12/26/23 10:53 ELINOR Inhibitors AdvReac Mild Cough Verified 12/26/23 10:53 gabapentin AdvReac Mild Nausea Verified 12/26/23 10:53 Home Medications Medication Instructions Recorded Confirmed Type cetirizine 10 mg tablet (Zyrtec) 10 mg PO PM 08/14/19 01/26/24 History folic acid 1 mg tablet 1 mg PO QAM 08/14/19 01/26/24 History losartan 50 mg tablet 50 mg PO PM 08/14/19 01/26/24 History metoprolol succinate 25 mg 25 mg PO QAM 08/14/19 01/26/24 History tablet,extended release 24 hr nitroglycerin 0.4 mg sublingual 0.4 mg sublingual UD PRN Chest Pain 08/14/19 01/26/24 History tablet pantoprazole 40 mg tablet,delayed 40 mg PO QAM 08/14/19 01/26/24 History release polyethylene glycol 3350 17 17 g PO DAILY PRN Constipation 08/14/19 01/26/24 History gram/dose oral powder (Miralax) rosuvastatin 20 mg tablet 20 mg PO PM 08/14/19 01/26/24 History cholecalciferol (vitamin D3) 25 25 mcg PO PM 05/22/20 01/26/24 History mcg (1,000 unit) tablet (Vitamin D3) lorazepam 1 mg tablet 0.5 mg PO PM PRN Insomnia 05/22/20 01/26/24 History ropinirole 0.25 mg tablet 0.25 mg PO HS 03/11/21 01/26/24 History ferrous sulfate 325 mg (65 mg 325 mg PO QPM 12/05/21 01/26/24 History iron) tablet (Iron (ferrous sulfate)) psyllium husk 3.4 gram/5.4 gram 1 tsp PO DAILY PRN Constipation 12/05/21 01/26/24 History oral powder (Metamucil) metformin 1,000 mg tablet 1,000 mg PO BID 04/08/22 01/26/24 History warfarin 2.5 mg tablet 2.5 mg PO UD 06/21/22 01/26/24 History methenamine hippurate 1 gram tablet 1 g PO BID #180 tabs 12/20/22 01/26/24 Rx tamsulosin 0.4 mg capsule See Rx Instructions .Route 11/21/23 01/26/24 Rx .COMPLEX #90 caps amlodipine 2.5 mg tablet 2.5 mg PO QAM 01/26/24 01/26/24 History calcipotriene 0.005 % topical cream 1 applic topical .BID UD 01/26/24 01/26/24 History cyanocobalamin (vitamin B-12) 1,000 mcg PO DAILY 01/26/24 01/26/24 History 1,000 mcg tablet (Vitamin B-12) duloxetine 60 mg capsule,delayed 60 mg PO QPM 01/26/24 01/26/24 History release dutasteride 0.5 mg capsule 0.5 mg PO HS 01/26/24 01/26/24 History apixaban 5 mg tablet (Eliquis) 5 mg PO BID #60 tabs 01/30/24 Rx Patient History Medical History Diabetes mellitus, type 2 On anticoagulant therapy warfarin daily Hard of hearing Peripheral neuropathy bilat legs Restless leg syndrome Urinary retention on occasion, meds help per pt Stroke 2017 > no residual effects > [facility] > was in therapy for reading for a while, all better now > doesn't see neuro anymore Myocardial Infarction early Pancreatic cyst just monitoring PAF (paroxysmal atrial fibrillation) Elevated INR T2DM (type 2 diabetes mellitus) Actinic keratosis 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 Poole [facility]> last checked around October 2020 > unsure of size Hypertension Coronary artery disease follows with CVA (cerebral vascular accident) Surgical History History of cardiac cath several > late 1989's early 1999's, last one 2007> no stents any time History of tooth extraction History of esophagogastroduodenoscopy (EGD) History of colonoscopy last 12/09/21 @ [facility] History of cataract surgery right Hx of tonsillectomy Family History Father Prostate cancer Diabetes Heart disease Hypertension Other No family history of adverse response to anesthesia Social History Smoking Status: Never smoker Second Hand Exposure: No; Do You Dip or Chew Tobacco: No; Hx Alcohol Use: No Hx Substance Use: No Preferred Language: Grenadian Communication Ability: Effective Nurse Transition Required: No Beliefs That Will Affect Care: None marital status: Current Living Situation: Spouse Current Living Situation Comment: Lives with and son current occupational status: retired Other Information That Helps Us Care for You: No Feels Safe at Home: Yes Safety Concerns: Feels Safe At This Time Diet: regular Assistive Devices: Cane, CPAP, Denture - Upper, Glasses and Hearing Aid - Bilateral Results & Data Vital Signs (Past 12 Hours) Vital Signs Temp Pulse Pulse Resp BP BP Pulse Ox 01/29/24 02:01 36.7 C 84 18 150/65 H 96 01/28/24 23:50 01/28/24 23:49 01/28/24 22:48 36.9 C 91 H 18 126/79 94 01/28/24 22:00 97 H 01/28/24 20:03 36.9 C 86 18 141/83 H 94 O2 Del Method O2 Del Method 01/29/24 02:01 Room Air 01/28/24 23:50 Room Air 01/28/24 23:49 Room Air 01/28/24 22:48 Room Air 01/28/24 22:00 01/28/24 20:03 Room Air
--- NOTE | 2024-01-29 08:07 | Surgery Progress Note ---
Date of Service January 29, 2024 Assessment & Plan (1) Retroperitoneal bleed: Plan: No concern for active extravasation on imaging yest. Hbg 10.4 (10.4) VSS Continue warm compresses to R lateral thigh On heparin GTT currently, may resume coumadin per hospitalist recs if any issues with ongoing bleeding would need to be transferred to tertiary center with IR capabilities for embolization reports constipation continue daily miralax until bm Admission and Anticipated Discharge Date Admission Date: January 26, 2024 Subjective Denies n/v , f/c discomfort to right thigh Review of Systems Constitutional: no fever and no chills Respiratory: no dyspnea Cardiovascular: no chest pain Gastrointestinal: no nausea and no vomiting Physical Exam Physical Exam: alert oriented Constitutional: cooperative and comfortable; no acute distress Respiratory: normal respiratory effort and able to speak in complete sentences; no respiratory distress Cardiovascular: Rate/Rhythm: regular rate Gastrointestinal (Abdomen): Percussion/Palpation: abdomen soft; no guarding Skin: + ecchymosis (right upper thigh) Results & Data Vital Signs (Past 12 Hours) Vital Signs Temp Pulse Pulse Resp BP BP Pulse Ox 01/29/24 02:01 98.1 F 84 18 150/65 H 96 01/28/24 23:50 01/28/24 23:49 01/28/24 22:48 98.4 F 91 H 18 126/79 94 01/28/24 22:00 97 H 01/28/24 20:03 98.4 F 86 18 141/83 H 94 O2 Del Method O2 Del Method 01/29/24 02:01 Room Air 01/28/24 23:50 Room Air 01/28/24 23:49 Room Air 01/28/24 22:48 Room Air 01/28/24 22:00 01/28/24 20:03 Room Air Results CBC w Diff Results: RBC 3.33 M/uL (4.70-6.10) L 01/29/24 WBC 6.99 K/ul (4.8-10.8) 01/29/24 Hgb 10.4 g/dl (14.0-18.0) L 01/29/24 Hct 30.8 % (42.0-52.0) L 01/29/24 MCV 92.5 fL (80.0-100.0) 01/29/24 MCH 31.2 pg (25.0-34.0) 01/29/24 MCHC 33.8 g/dL (32.0-36.0) 01/29/24 RDW Standard Deviation 46.5 fL (36.4-46.3) H 01/29/24 RDW Coefficient of Variation 13.7 % (11.5-14.5) 01/29/24 Plt Count 180 K/uL (130-400) 01/29/24 MPV 10.2 fL (9.4-12.4) 01/29/24 Neutrophils (%) (Auto) 70.2 % 01/29/24 Lymphocytes (%) (Auto) 16.3 % 01/29/24 Monocytes # (Auto) 0.64 K/uL (0.11-0.59) H 01/29/24 Eosinophils # (Auto) 0.23 K/uL (0.00-0.50) 01/29/24 Immature Granulocyte % (Auto) 0.6 % 01/29/24 Neutrophils # (Auto) 4.91 K/uL (1.40-6.50) 01/29/24 Lymphocytes # (Auto) 1.14 K/uL (1.20-3.40) L 01/29/24 Monocytes # (Auto) 0.64 K/uL (0.11-0.59) H 01/29/24 Eosinophils # (Auto) 0.23 K/uL (0.00-0.50) 01/29/24 Basophils # (Auto) 0.03 K/uL (0.00-0.20) 01/29/24 Immature Granulocyte # (Auto) 0.04 K/uL (0.01-0.20) 4 PG Care Time/CCT Total # of Minutes Spent Total Time Spent with Patient: Total time spent is greater than 50% in coordination of care (as documented) at patient's floor/unit and/or counseling patient: Coding Level of Care Code 08312 SUB INP/OBS CARE 08/09MIN Diagnoses Retroperitoneal bleed R58
--- NOTE | 2024-01-29 17:53 | Hospitalist Progress Note ---
Date of Service January 29, 2024 Assessment & Plan (1) Hypotension: Plan Pt is an 83yoM with PMHx significant for CAD status post stent, hypertension, hyperlipidemia, hx PAF/hx PE/recurrent CVA/cryptogenic stroke on Coumadin, PVD (thoracic aortic aneurysm),ABDULLAHI on CPAP, BPH/chronic UTI on chronic methenamine Rx, DM2 on oral medications, chronic back pain presenting with hematuria and expanding thigh hematoma. R iliopsoas Hematoma Retroperitoneal Bleed Supratherapeutic INR Chronic Anemia b12 deficiency Pt presenting with bruising and expanding thigh hematoma, hematuria INR 5.5 on admission, s/p Vit K, INR now 1.6 hgb of 12 on admission, went down to 10.7 Hemoglobin drop from outpatient baseline of [address] femur noting "Retroperitoneal hematoma incompletely evaluated on this exam. Hemorrhage extends into the right thigh." CTA abd/pelvis noting "Right iliopsoas intramuscular hematoma with extension of hemorrhage into the right retroperitoneal space. Overall, there is a moderate amount of intramuscular/retroperitoneal hemorrhage.No evidence for active arterial extravasation." General Surgery consulted, appreciate recs -recommend warm compresses to R lateral thigh at dependant aspect where there is the interval development of edema and skin thickening -can consider resuming blood thinners, start with hep gtt to ensure stability in hbg prior to resuming coumadin -if any issues with ongoing bleeding would need to be transferred to tertiary center with IR capabilities for embolization -No indication for surgical intervention -reports + constipation. continue daily miralax until BMs. Had one dose yesterday. Held home warfarin and aspirin Follow H&H, transfuse PRBC to maintain hemoglobin above 8 and or for symptomatic anemia Hematology consulted RE NOAC Rx in place of Coumadin given recurrent episodes of bleeding from Coumadin coagulopathy Vitamin K to reverse coagulopathy given significant hemoglobin drop AM anemia panel noting b12 deficiency Continue home folate, iron and b12 supplements- b2 supplement increased to 2000mcg daily Pt currently hemodynamically stable H/H stable IV heparin started per Gen Surg recs Continue to monitor Sinus Tachycardia Pt with occasional spikes of HR into 130s and 140s on 01/28 EKG sinus with first degree AV block CTA chest ordered to rule out PE- follow Echo routine ordered Cardiology consulted, appreciate recs -IV metoprolol with initiation of pi metoprolol Continue to monitor on telemetry Hypotension Secondary to hypovolemia secondary to RLE bleed secondary to Coumadin coagulopathy Received IV fluids Holding home antihypertensive meds Continue to monitor, resume as able Resolved UTI Pt with indwelling cath recent Cipro Rx for UTI repeat urine Cx with growth of gram positive cocci, small amt Likely contaminant Rhabdomyolysis CK elevated on admission at [phone] Mild rhabdomyolysis possibly from R thigh bleed IV fluids Hold home statin Continue to monitor with AM labs hx PAF hx PE recurrent CVA cryptogenic stroke on Coumadin INR 5.5 on admission, s/p Vit K Currently on IV heparin hx CAD status post stent/PVD Stable hyperlipidemia on statin Rx, holding as above BPH/chronic UTI on chronic methenamine Rx 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 Diet: HH/DMII DVT prophylaxis: warfarin on hold, INR reversed with Vit K. SCDs if INR less than 2 while Coumadin on hold Dispo: PT/OT recommending return home Admission and Anticipated Discharge Date Admission Date: January 26, 2024 Subjective pt seen multiple times during the day. In the AM denied SOB, chest pain, N/V, palps. Later notified by nursing pt with occasional spikes of HR to 130s-140s Review of Systems Review of Systems: All systems reviewed & are unremarkable except as noted in Subjective Physical Exam Physical Exam: General: Alert, orientedx3. No acute distress Skin: bruising over right thigh and hip noted Psych: Appropriate mood and affect Neuro: hard of hearing HEENT: NC/AT CV: RRR Resp: Breath sounds clear bilaterally, no increased effort of breathing. Abdomen: Soft, nontender, nondistended Extremities: bruising over right thigh and hip Results & Data Results & Data Vital Signs (Past 12 Hours) Vital Signs Temp Pulse Pulse Resp BP Pulse Ox O2 Del Method 01/29/24 16:04 36.8 C 88 18 156/94 H 94 Room Air 01/29/24 16:00 96 H 01/29/24 11:19 37.0 C 100 H 18 157/100 H 92 Room Air 01/29/24 10:13 76 01/29/24 08:08 36.8 C 94 H 20 144/95 H 94 Room Air
[2024-01-29] MEDS: OPTIRAY 320 125ml IV ONE (18:19)
--- NOTE | 2024-01-29 18:27 | Cardiology Consultation ---
Date of Consultation January 29, 2024 Assessment & Plan (1) Sinus tachycardia: (2) First degree AV block: (3) Retroperitoneal bleed: Plan 83-year-old male with a history of coronary heart disease, recurrent stroke, pulmonary embolism. He is on chronic treatment with aspirin 81 mg daily (confirmed per my conversation with patient ) and coumadin, goal INR 2-3. The patient presented with a spontaneous right thigh and retroperitoneal hematoma in the setting of coagulopathy, INR 5.5, with recent UTI and antibiotic treatment. Has history of past labile INR measurements. At time presentation the emergency room he was hypotensive, systolic blood pressures in the 90s, and therefore his home antihypertensive medications including amlodipine, losartan, and metoprolol succinate 25 mg oral held. Blood pressure has improved, most recent measurement up to 154/84. Progressive tachycardia noted. Question if this is just related to his blood pressure normalizing and having been off of his chronic metoprolol for 3 days at this point. Per review of telemetry, a brief episode of atrial fibrillation with rates up to 130 bpm cannot be excluded. A CT angiogram has been performed to exclude pulmonary embolism with patient having been off of anticoagulation for about 2 days and having received reversal which I think is reasonable. Hemoglobin was stable this morning and at this point given lack of hypotension I think it is reasonable to maintain plan of repeating his next hemoglobin in the morning. --Proceed with metoprolol 5 mg IV x 1 now, to be followed by metoprolol tartrate 25 mg twice daily. --Outpatient chart reviewed. He has been on anticoagulation with Coumadin plus aspirin due to back to 2018 after having had multiple stroke episodes including a recurrent stroke while on dual antiplatelet therapy with aspirin and clopidogrel. He has had a longstanding history of complications with Coumadin. Given this event, transitioning To a direct oral anticoagulant such as Eliquis may be prudent. History of Present Illness Attending Physician: Armida Walters MD History of Present Illness Mr Morfin is an 83-year-old male seen in cardiology consultation per the request of Dr Walters For the evaluation of tachycardia. The patient is on chronic anticoagulation due to his history of paroxysmal atrial fibrillation, recurrent stroke, and pulmonary embolism. The patient presented to the emergency department on 01/26/2024 with bruising of the right hip and thigh and hematuria. He had recently been on a course of ciprofloxacin as an outpatient for urinary tract infection. INR on presentation, 01/26/2024 was 5.5.Hemoglobin on presentation at the time was 12 and subsequently has trended down to 9.9 as of 01/27/2024 and was 10.4 today. Systolic blood pressures were in the 90s on presentation. Coumadin and aspirin were held and the patient received IV vitamin K. CT of the abdomen pelvis performed 01/27/2024 revealed a right iliopsoas intramuscular hematoma with extension of hemorrhage into the right retroperitoneal space. Small right and trace left pleural effusions noted. Heparin infusion reinitiated as of 01/28/2024. Patient noted to have sinus tachycardia, rate for the most part around 100 bpm at around 3 PM today. Had just after 5:00, an abrupt increase in heart rate was noted. Repeat EKG performed at the bedside while I was seeing the patient at 1758 today reveals sinus tachycardia at 110 bpm with first-degree AV block, NH interval 248 ms, and frequent PVCs. Patient denies any acute complaints. Denies chest discomfort, shortness of breath, worsening thigh or abdominal pain. Outpatient Problem list: 1. Atherosclerotic coronary disease with prior remote coronary interventions to the right coronary, ultimately resulting in right coronary occlusion, 2003. 2. Class II angina pectoris. 3. Dilated aortic root and thoracic aorta , (5.1/4.9 cm) 4. History of past pulmonary embolus. 5. Obstructive sleep apnea. 6. Labile hypertension. 7. Hyperlipidemia. 8. Occipital stroke in October 2017. 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 9. Paroxysmal atrial fibrillation, on chronic anticoagulation 10. Chronic back pain. 11. Chronic urinary retention, intermittent straight catheterization Allergies Allergy/AdvReac Type Severity Reaction Status Date / Time propoxyphene Allergy Intermediate Hallucinati Verified 12/26/23 10:53 ng omeprazole Allergy Unknown Unknown Verified 12/26/23 10:53 ELINOR Inhibitors AdvReac Mild Cough Verified 12/26/23 10:53 gabapentin AdvReac Mild Nausea Verified 12/26/23 10:53 Home Medications Medication Instructions Recorded Confirmed Type cetirizine 10 mg tablet (Zyrtec) 10 mg PO PM 08/14/19 01/26/24 History folic acid 1 mg tablet 1 mg PO QAM 08/14/19 01/26/24 History losartan 50 mg tablet 50 mg PO PM 08/14/19 01/26/24 History metoprolol succinate 25 mg 25 mg PO QAM 08/14/19 01/26/24 History tablet,extended release 24 hr nitroglycerin 0.4 mg sublingual 0.4 mg sublingual UD PRN Chest Pain 08/14/19 01/26/24 History tablet pantoprazole 40 mg tablet,delayed 40 mg PO QAM 08/14/19 01/26/24 History release polyethylene glycol 3350 17 17 g PO DAILY PRN Constipation 08/14/19 01/26/24 History gram/dose oral powder (Miralax) rosuvastatin 20 mg tablet 20 mg PO PM 08/14/19 01/26/24 History cholecalciferol (vitamin D3) 25 25 mcg PO PM 05/22/20 01/26/24 History mcg (1,000 unit) tablet (Vitamin D3) lorazepam 1 mg tablet 0.5 mg PO PM PRN Insomnia 05/22/20 01/26/24 History ropinirole 0.25 mg tablet 0.25 mg PO HS 03/11/21 01/26/24 History ferrous sulfate 325 mg (65 mg 325 mg PO QPM 12/05/21 01/26/24 History iron) tablet (Iron (ferrous sulfate)) psyllium husk 3.4 gram/5.4 gram 1 tsp PO DAILY PRN Constipation 12/05/21 01/26/24 History oral powder (Metamucil) metformin 1,000 mg tablet 1,000 mg PO BID 04/08/22 01/26/24 History warfarin 2.5 mg tablet 2.5 mg PO UD 06/21/22 01/26/24 History methenamine hippurate 1 gram tablet 1 g PO BID #180 tabs 12/20/22 01/26/24 Rx tamsulosin 0.4 mg capsule See Rx Instructions .Route 11/21/23 01/26/24 Rx .COMPLEX #90 caps amlodipine 2.5 mg tablet 2.5 mg PO QAM 01/26/24 01/26/24 History calcipotriene 0.005 % topical cream 1 applic topical .BID UD 01/26/24 01/26/24 History cyanocobalamin (vitamin B-12) 1,000 mcg PO DAILY 01/26/24 01/26/24 History 1,000 mcg tablet (Vitamin B-12) duloxetine 60 mg capsule,delayed 60 mg PO QPM 01/26/24 01/26/24 History release dutasteride 0.5 mg capsule 0.5 mg PO HS 01/26/24 01/26/24 History Patient History Medical History Diabetes mellitus, type 2 On anticoagulant therapy warfarin daily Hard of hearing Peripheral neuropathy bilat legs Restless leg syndrome Urinary retention on occasion, meds help per pt Stroke 2017 > no residual effects > [facility] > was in therapy for reading for a while, all better now > doesn't see neuro anymore Myocardial Infarction early Pancreatic cyst just monitoring PAF (paroxysmal atrial fibrillation) Elevated INR T2DM (type 2 diabetes mellitus) Actinic keratosis 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 Poole with [facility]> last checked around October 2020 > unsure of size Hypertension Coronary artery disease follows with CVA (cerebral vascular accident) Surgical History History of cardiac cath several > late 1989's early , last one 2007> no stents any time History of tooth extraction History of esophagogastroduodenoscopy (EGD) History of colonoscopy last 12/09/21 @ [facility] History of cataract surgery right Hx of tonsillectomy Family History Father Prostate cancer Diabetes Heart disease Hypertension Other No family history of adverse response to anesthesia Social History Smoking Status: Never smoker Second Hand Exposure: No; Do You Dip or Chew Tobacco: No; Hx Alcohol Use: No Hx Substance Use: No Preferred Language: Albanian Communication Ability: Effective Cost Reduction Engineer Required: No Beliefs That Will Affect Care: None marital status: Current Living Situation: Spouse Current Living Situation Comment: Lives with and son current occupational status: retired Other Information That Helps Us Care for You: No Feels Safe at Home: Yes Safety Concerns: Feels Safe At This Time Diet: regular Assistive Devices: Cane, CPAP, Denture - Upper, Glasses and Hearing Aid - Bilateral Review of Systems Review of Systems: All systems reviewed & are unremarkable except as noted in HPI & below Physical Exam Physical Exam: General: no acute distress and stated age Eyes: conjunctiva are pink and non-injected, sclera clear Neck: normal jugular venous pulse, no hepatojugular reflux Chest: normal shape and normal respiratory effort Lungs: clear to auscultation and percussion Cardiac Exam: - regular heart sounds, no murmurs, rubs, or gallops, no jugular venous distention Abdomen: abdomen soft, non-tender, no abnormal masses and no hepatosplenomegaly Musculoskeletal: no gait disturbance, no weakness Extremities: Ecchymosis noted over right thigh Neuro:awake, conversant, follows commands, no focal motor deficits Psych: appropriate affect and insight. Results & Data Vital Signs (Past 12 Hours) Vital Signs Temp Pulse Pulse Resp BP Pulse Ox O2 Del Method 01/29/24 16:04 36.8 C 88 18 156/94 H 94 Room Air 01/29/24 16:00 96 H 01/29/24 11:19 37.0 C 100 H 18 157/100 H 92 Room Air 01/29/24 10:13 76 01/29/24 08:08 36.8 C 94 H 20 144/95 H 94 Room Air Laboratory Results Cardiac Enzymes 01/29/24 Range/Units 03:54 AST 20 (13-39) U/L Coagulation 01/29/24 Range/Units 03:54 PT 11.3 (9.0-12.0) Seconds CBC 01/29/24 Range/Units 03:54 WBC 6.99 (4.8-10.8) K/ul RBC 3.33 L (4.70-6.10) M/uL Hgb 10.4 L (14.0-18.0) g/dl Hct 30.8 L (42.0-52.0) % Plt Count 180 (130-400) K/uL Neut # (Auto) 4.91 (1.40-6.50) K/uL Lymph # (Auto) 1.14 L (1.20-3.40) K/uL [place] # (Auto) 0.64 H (0.11-0.59) K/uL Eos # (Auto) 0.23 (0.00-0.50) K/uL Baso # (Auto) 0.03 (0.00-0.20) K/uL Comprehensive Metabolic Panel 07/16/24 Range/Units 03:54 Sodium 137 (136-145) mmol/L Potassium 3.9 (3.5-5.1) mmol/L Chloride 104 (98-107) mmol/L Carbon Dioxide 28 (21-32) mmol/L BUN 18 (6-23) mg/dl Creatinine 0.76 (0.6-1.4) mg/dl Glucose 117 H (70-99(Fasting)) mg/dl Calcium 8.5 L (8.6-10.3) mg/dl AST 20 (13-39) U/L ALT 10 (7-52) U/L Alkaline Phosphatase 40 (34-104) U/L Total Protein 5.2 L (6.0-8.3) gm/dl Albumin 3.2 L (3.4-5.0) gm/dl Intake and Output 01/29/24 01/29/24 01/29/24 06:59 14:59 22:59 Intake Total 200 / 2440.000 293.633 / 1133.633 840 / 1133.633 Output Total 600 / 2300 1600 / 1600 Balance -400 / 140.000 293.633 / -466.367 -760 / -466.367 Intake: IV 293.633 / 293.633 Heparin Sodium/Dextrose 25,000 293.633 / 293.633 units In 500 ml @ 1,150 UNITS/ HR 23 mls/hr IV .[id number] [facility] Rx #:[id number] Oral 200 / 1270 840 / 840 Output: Urine Amount (Catheter) 600 / 2300 1600 / 1600 Shahid/Indwelling 600 / 2300 1600 / 1600 Other: Weight 98.6 kg
[2024-01-29] MEDS: METOPROLOL TARTRATE 1 MG/ML VIAL IV STA (18:31)
--- NOTE | 2024-01-29 19:07 | CT Scan Report ---
CT angio chest PE protocol CLINICAL HISTORY: PE TECHNIQUE: Multidetector row helical CT of the chest was performed with angiographic protocol. Orta l and sagittal reformations were obtained. Coronal and sagittal MIPS were obtained from the axial davion a set and were submitted for review. Automated dose lowering techniques and/or adjustment according to patient size were utilized for this exam. CT DOSE: 869.53 mGy.cm Comparison: Comparison is made to chest radiograph 11/07/2017 FINDINGS: Lungs and pleura: Trace bilateral pleural effusions are seen with underlying atelectasis. A few calci fied granulomata are seen. Heart and pericardium: Heart size is normal. No pericardial effusion. Vessels: No evidence of pulmonary embolism. Moderate atherosclerosis is seen. Mediastinum and nai: Unremarkable. Chest wall and lower neck: Unremarkable. Abdomen: Unremarkable. Bones: Degenerative changes in the thoracic spine. IMPRESSION: 1. No pulmonary embolus. 2. Trace bilateral pleural effusions with underlying atelectasis. ACT 112: Negative or not required by law. Electronically signed by: Sarmad Calloway M.D. 01/29/2024 7:05 PM
[2024-01-29] MEDS: METOPROLOL TARTRATE 25 MG TAB PO SCH (20:23)
[2024-01-30 06:29] LABS: Basophils # (auto) 0.02 K/uL (0.00-0.20); Basophils % (auto) 0.3 %; Eosinophils # (auto) 0.28 K/uL (0.00-0.50); Hematocrit (blood only) 33.3 % (42.0-52.0); Hemoglobin 11.1 g/dl (14.0-18.0); Immature Granulocytes # (auto) 0.05 K/uL (0.01-0.20); Immature Granulocytes % (auto) 0.7 %; Lymphocytes # (auto) 1.25 K/uL (1.20-3.40); Lymphocytes % (auto) 17.9 %; Mean Corpuscular Hgb Conc 33.3 g/dL (32.0-36.0); Mean Platelet Volume 10.4 fL (9.4-12.4); Monocytes # (auto) 0.53 K/uL (0.11-0.59); Monocytes % (auto) 7.6 %; Neutrophils # (auto) 4.84 K/uL (1.40-6.50); Neutrophils % (auto) 69.5 %; Platelet Count 214 K/uL (130-400); RDW Coefficient of Variation 13.9 % (11.5-14.5); RDW Standard Deviation 47.2 fL (36.4-46.3); Red Blood Count 3.58 M/uL (4.70-6.10); White Blood Count 6.97 K/ul (4.8-10.8)
[2024-01-30 06:50] LABS: ANTI-Xa, UFH(UnfractionatedHep 0.28 IU/ml (0.3-0.7); Prothrombin Time 11.1 Seconds (9.0-12.0)
[2024-01-30 07:05] LABS: Albumin Level 3.3 gm/dl (3.4-5.0); Bilirubin,Total 1.6 mg/dl (0.2-1.0); Calcium 8.7 mg/dl (8.6-10.3); Potassium 4.2 mmol/L (3.5-5.1)
[2024-01-30 07:11] LABS: Est GFR (African American) 95.6 ml/min; Est GFR (Non-African American) 82.5 ml/min
[2024-01-30] MEDS: FUROSEMIDE INJ 20 MG/2 ML VIAL IV ONE (08:26)
[2024-01-30] MEDS: POTASSIUM CHLORIDE 10 MEQ TABCR PO STA (08:26)
[2024-01-30 08:55] LABS: Albumin Globulin Ratio 1.5 (0.9-2); BUN Creatinine Ratio 24.1 (10-20); Globulin 2.2 gm/dl (2.5-4.0); Total Protein 5.5 gm/dl (6.0-8.3)
--- NOTE | 2024-01-30 11:10 | Electrocardiogram Report ---
Test Reason : Blood Pressure : / mmHG Vent. Rate : 089 BPM Atrial Rate : 089 BPM P-R Int : 240 ms QRS Dur : 154 ms QT Int : 390 ms P-R-T Axes : 030 -46 114 degrees QTc Int : 474 ms Poor data quality, interpretation may be adversely affected Sinus rhythm with 1st degree A-V block with occasional Premature ventricular complexes Left axis deviation Non-specific intra-ventricular conduction block Abnormal ECG When compared with ECG of 26-JAN-2024 20:11, No significant change was found Confirmed by Jairo Rubin ([id number]) on 01/30/2024 11:10:07 AM Referred By: REFERRED SELF Confirmed By:Jairo Rubin
--- NOTE | 2024-01-30 11:14 | Cardiology Progress Note ---
Date of Service January 30, 2024 Assessment & Plan (1) Sinus tachycardia: (2) First degree AV block: (3) Retroperitoneal bleed: Plan 83-year-old male with a history of coronary heart disease, recurrent stroke, pulmonary embolism. He is on chronic treatment with aspirin 81 mg daily (confirmed per my conversation with patient ) and coumadin, goal INR 2-3. The patient presented with a spontaneous right thigh and retroperitoneal hematoma in the setting of coagulopathy, INR 5.5, with recent UTI and antibiotic treatment. Has history of past labile INR measurements. At time presentation the emergency room he was hypotensive, systolic blood pressures in the 90s, and therefore his home antihypertensive medications including amlodipine, losartan, and metoprolol succinate 25 mg oral held. Blood pressure has improved, now trending toward hypertension. A CT angiogram has been performed to exclude pulmonary embolism on 01/29/24 which was negative for pulmonary embolism. Trace bilateral pleural effusions noted. --Heart rate much improved after receiving 5 mg of IV metoprolol on 01/29/2024, followed by metoprolol tartrate 25 mg twice daily. Will resume prior to hospital treatment with metoprolol succinate 25 mg daily on 01/31/2024. Resume prior to hospital treatment with amlodipine 2.5 mg in a.m. and losartan 50 mg at bedtime. --Outpatient chart reviewed. He has been on anticoagulation with Coumadin, goal INR 23, plus aspirin due to back to 2017 after having had multiple stroke episodes including a recurrent stroke while on dual antiplatelet therapy with aspirin and clopidogrel. He has had a longstanding history of complications with Coumadin. Discussed options of transitioning to a direct oral anticoagulant or remaining on Coumadin with patient. At present, patient favors Coumadin. Admission and Anticipated Discharge Date Admission Date: January 26, 2024 Subjective Patient seen in cardiology follow-up. Subjectively feeling well. Denies any chest discomfort or shortness of breath. Denies back pain, denies right hip/thigh pain. Telemetry reveals sinus rhythm in the 80s with first-degree AV block. Heart rate trend has improved significantly over the last 24 hours since addition of metoprolol. Review of Systems Review of Systems: All systems reviewed & are unremarkable except as noted in HPI & below Physical Exam Physical Exam: General: no acute distress and stated age Eyes: conjunctiva are pink and non-injected, sclera clear Neck: normal jugular venous pulse, no hepatojugular reflux Chest: normal shape and normal respiratory effort Lungs: clear to auscultation and percussion Cardiac Exam: - regular heart sounds, no murmurs, rubs, or gallops, no jugular venous distention Abdomen: abdomen soft, non-tender, no abnormal masses and no hepatosplenomegaly Musculoskeletal: no gait disturbance, no weakness Extremities: Ecchymosis noted over right thigh Neuro:awake, conversant, follows commands, no focal motor deficits Psych: appropriate affect and insight. Results & Data Vital Signs (Past 12 Hours) Vital Signs Temp Pulse Pulse Resp BP Pulse Ox O2 Del Method 01/30/24 07:38 36.8 C 84 18 160/83 H 95 Room Air 01/30/24 07:25 67 01/30/24 04:21 36.8 C 70 18 132/81 93 Room Air 01/30/24 01:33 Room Air 01/30/24 00:00 O2 Del Method 01/30/24 07:38 01/30/24 07:25 01/30/24 04:21 01/30/24 01:33 01/30/24 00:00 Room Air Laboratory Results Cardiac Enzymes 01/30/24 Range/Units 05:50 AST 15 (13-39) U/L Coagulation 01/30/24 Range/Units 05:50 PT 11.1 (9.0-12.0) Seconds CBC 01/30/24 Range/Units 05:50 WBC 6.97 (4.8-10.8) K/ul RBC 3.58 L (4.70-6.10) M/uL Hgb 11.1 L (14.0-18.0) g/dl Hct 33.3 L (42.0-52.0) % Plt Count 214 (130-400) K/uL Neut # (Auto) 4.84 (1.40-6.50) K/uL Lymph # (Auto) 1.25 (1.20-3.40) K/uL [place] # (Auto) 0.53 (0.11-0.59) K/uL Eos # (Auto) 0.28 (0.00-0.50) K/uL Baso # (Auto) 0.02 (0.00-0.20) K/uL Comprehensive Metabolic Panel 01/30/24 Range/Units 05:50 Sodium 139 (136-145) mmol/L Potassium 4.2 (3.5-5.1) mmol/L Chloride 105 (98-107) mmol/L Carbon Dioxide 28 (21-32) mmol/L BUN 20 (6-23) mg/dl Creatinine 0.83 (0.6-1.4) mg/dl Glucose 103 H (70-99(Fasting)) mg/dl Calcium 8.7 (8.6-10.3) mg/dl AST 15 (13-39) U/L ALT 10 (7-52) U/L Alkaline Phosphatase 42 (34-104) U/L Total Protein 5.5 L (6.0-8.3) gm/dl Albumin 3.3 L (3.4-5.0) gm/dl Intake and Output 01/29/24 01/30/24 01/30/24 22:59 06:59 14:59 Intake Total 1090 / 1483.633 100 / 1483.633 511.167 / 511.167 Output Total 2450 / 2950 500 / 2950 Balance -1360 / -1466.367 -400 / -1466.367 511.167 / 511.167 Intake: IV 511.167 / 511.167 Heparin Sodium/Dextrose 25,000 511.167 / 511.167 units In 500 ml @ 1,150 UNITS/ HR 23 mls/hr IV .[id number] [facility] Rx #:[id number] Oral 1090 / 1190 100 / 1190 Output: Urine Amount (Catheter) 2450 / 2950 500 / 2950 Shahid/Indwelling 2450 / 2950 500 / 2950 Other: Weight 99.7 kg Weight Measurement Method [facility]
--- NOTE | 2024-01-30 11:17 | Electrocardiogram Report ---
Test Reason : Blood Pressure : / mmHG Vent. Rate : 110 BPM Atrial Rate : 110 BPM P-R Int : 248 ms QRS Dur : 140 ms QT Int : 324 ms P-R-T Axes : 007 -47 090 degrees QTc Int : 438 ms Sinus tachycardia with 1st degree A-V block with frequent Premature ventricular complexes Left axis deviation Non-specific intra-ventricular conduction block Abnormal ECG When compared with ECG of 29-JAN-2024 16:07, (unconfirmed) No significant change was found Confirmed by Jairo Rubin ([id number]) on 01/30/2024 11:17:50 AM Referred By: REFERRED SELF Confirmed By:Jairo Rubin
[2024-01-30] MEDS: amLODIPine BESYLATE 5 MG TAB PO ONE (12:19)
[2024-01-30 14:58] LABS: ANTI-Xa, UFH(UnfractionatedHep 0.28 IU/ml (0.3-0.7)
--- NOTE | 2024-01-30 16:53 | Hospitalist Progress Note ---
Date of Service January 30, 2024 Assessment & Plan (1) Hypotension: Plan Mr. 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 Patient high risk for recurrent VTE/cryptogenic CVA admitted with retroperitoneal bleeding due to supratherapeutic INR. Bleeding appears to have subsided with stable hemoglobin/hematocrit. Currently on heparin and with stable hgb. Evaluated by Heme/once: "Since patient indicates that he has recurrent UTIs for which he requires antibiotics regularly, he would benefit from switching to a DOAC such as Eliquis which usually does not have any major interactions with antibiotics. Patient reluctant to switch to DOAC until his mobile lounge driver or operator agrees with this. I will reach out to his outpatient mobile lounge driver or operator to see if he is okay with patient switching to DOAC. If patient's declines DOAC, would need close monitoring of INR whenever he is on antibiotics." #Retroperitoneal Bleed c/b R iliopsoas Hematoma #Supratherapeutic INR #Acute on Chronic Anemia, iso RPB #b12 deficiency Pt presenting with bruising and expanding thigh hematoma, hematuria INR 5.5 on admission, s/p Vit K, INR now 1.6 Hemoglobin drop from outpatient baseline of [address] femur noting "Retroperitoneal hematoma incompletely evaluated on this exam. Hemorrhage extends into the right thigh." CTA abd/pelvis noting "Right iliopsoas intramuscular hematoma with extension of hemorrhage into the right retroperitoneal space. Overall, there is a moderate amount of intramuscular/retroperitoneal hemorrhage.No evidence for active arterial extravasation." General Surgery consulted, appreciate recs -recommend warm compresses to R lateral thigh at dependant aspect where there is the interval development of edema and skin thickening -can consider resuming blood thinners, start with hep gtt to ensure stability in hbg prior to resuming coumadin -if any issues with ongoing bleeding would need to be transferred to tertiary center with IR capabilities for embolization -No indication for surgical intervention Follow H&H, transfuse PRBC to maintain hemoglobin above 8 and or for symptomatic anemia Hematology consulted Recommends DOAC, eliquis with Cop[employer] 244$ (unclear if deductible or not) Vitamin K to reverse coagulopathy given significant hemoglobin drop Continue home folate, iron and b12 supplements- b2 supplement increased to 2000mcg daily Pt currently hemodynamically stable IV heparin for now -Will discuss DOAC v warfarin given persistent issues #Sinus Tachycardia Pt with occasional spikes of HR into 130s and 140s on 01/28 EKG sinus with first degree AV block CTA chest ordered to rule out PE- follow Echo routine ordered Cardiology consulted, appreciate recs -s/p IV metoprolol -Continue po home metoprolol Continue to monitor on telemetry #Hypotension Secondary to hypovolemia secondary to RLE bleed secondary to Coumadin coagulopathy Received IV fluids Holding home antihypertensive meds Continue to monitor, resume as able Resolved #Recent UTI POA #CIC recent Cipro Rx for UTI repeat urine Cx with growth of gram positive cocci, small amt No symptoms, encouraged removal of zuniga -D/C tomorrow #Rhabdomyolysis resolved * CK elevated on admission at 309- 341 Mild rhabdomyolysis possibly from R thigh bleed Repeat in am Resume Statin # PAF #hx PE #recurrent CVA #cryptogenic stroke on Coumadin INR 5.5 on admission, s/p Vit K Currently on IV heparin Pending decision of DOAC v coumadin #hx CAD status post stent/PVD Stable #hyperlipidemia on statin Rx, holding as above #BPH/chronic UTI on chronic methenamine Rx #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 Diet: HH/DMII DVT prophylaxis: warfarin on hold, INR reversed with Vit K. SCDs if INR less than 2 while Coumadin on hold Dispo: PT/OT recommending return home Admission and Anticipated Discharge Date Admission Date: January 26, 2024 Subjective NAEO Reports concerns over transitioning to DOAC unless Dr Poole agrees Denies any new concerns, including chest pain, palpitations or other acute concerns Physical Exam Constitutional: WD/WN, vitals as above Respiratory: normal respiratory effort, lungs clear to auscultation Cardiovascular: regular, tachycardic Results & Data Results & Data Vital Signs (Past 12 Hours) Vital Signs Temp Pulse Pulse Resp BP Pulse Ox O2 Del Method 01/30/24 15:07 95 H 01/30/24 11:14 36.5 C 59 L 18 142/71 H 94 Room Air 01/30/24 07:38 36.8 C 84 18 160/83 H 95 Room Air 01/30/24 07:25 67 Laboratory Results Short CBC 01/30/24 Range/Units 05:50 WBC 6.97 (4.8-10.8) K/ul Hgb 11.1 L (14.0-18.0) g/dl Hct 33.3 L (42.0-52.0) % Plt Count 214 (130-400) K/uL BMP 01/30/24 05:50 Sodium 139 Potassium 4.2 Chloride 105 Carbon Dioxide 28 BUN 20 Creatinine 0.83 Glucose 103 H Calcium 8.7 Liver Function 01/30/24 Range/Units 05:50 Total Bilirubin 1.6 H (0.2-1.0) mg/dl AST 15 (13-39) U/L ALT 10 (7-52) U/L Alkaline Phosphatase 42 (34-104) U/L Albumin 3.3 L (3.4-5.0) gm/dl Medications Administered Home Medications Medication Instructions Recorded Confirmed Last Taken cetirizine 10 mg tablet (Zyrtec) 10 mg PO PM 08/14/19 01/26/24 12/13/22 folic acid 1 mg tablet 1 mg PO [facility] 08/14/19 01/26/24 12/14/22 06:00 losartan 50 mg tablet 50 mg PO PM 08/14/19 01/26/24 12/13/22 metoprolol succinate 25 mg 25 mg PO [facility] 08/14/19 01/26/24 12/14/22 06:00 tablet,extended release 24 hr nitroglycerin 0.4 mg sublingual 0.4 mg sublingual UD PRN Chest Pain 08/14/19 01/26/24 Unknown tablet pantoprazole 40 mg tablet,delayed 40 mg PO [facility] 08/14/19 01/26/24 12/14/22 06:00 release polyethylene glycol 3350 17 17 g PO DAILY PRN Constipation 08/14/19 01/26/24 12/09/21 gram/dose oral powder (Miralax) rosuvastatin 20 mg tablet 20 mg PO PM 08/14/19 01/26/24 12/13/22 cholecalciferol (vitamin D3) 25 25 mcg PO PM 05/22/20 01/26/24 12/13/22 mcg (1,000 unit) tablet (Vitamin D3) lorazepam 1 mg tablet 0.5 mg PO PM PRN Insomnia 05/22/20 01/26/24 03/21/21 ropinirole 0.25 mg tablet 0.25 mg PO HS 03/11/21 01/26/24 12/13/22 ferrous sulfate 325 mg (65 mg 325 mg PO QPM 12/05/21 01/26/24 12/11/22 iron) tablet (Iron (ferrous sulfate)) psyllium husk 3.4 gram/5.4 gram 1 tsp PO DAILY PRN Constipation 12/05/21 01/26/24 12/01/21 oral powder (Metamucil) metformin 1,000 mg tablet 1,000 mg PO BID 04/08/22 01/26/24 12/14/22 06:00 warfarin 2.5 mg tablet 2.5 mg PO UD 06/21/22 01/26/24 12/08/22 methenamine hippurate 1 gram tablet 1 g PO BID #180 tabs 12/20/22 01/26/24 Unknown tamsulosin 0.4 mg capsule See Rx Instructions .Route 11/21/23 01/26/24 Unknown .COMPLEX #90 caps amlodipine 2.5 mg tablet 2.5 mg PO QAM 01/26/24 01/26/24 Unknown calcipotriene 0.005 % topical cream 1 applic topical .BID UD 01/26/24 01/26/24 Unknown cyanocobalamin (vitamin B-12) 1,000 mcg PO DAILY 01/26/24 01/26/24 Unknown 1,000 mcg tablet (Vitamin B-12) duloxetine 60 mg capsule,delayed 60 mg PO QPM 01/26/24 01/26/24 Unknown release dutasteride 0.5 mg capsule 0.5 mg PO HS 01/26/24 01/26/24 Unknown apixaban 5 mg tablet (Eliquis) 5 mg PO BID #60 tabs 01/30/24 Unknown Active Medications Generic Name Dose Route Start Last Admin Trade Name Freq PRN Reason Stop Dose Admin Cetirizine HCl 10 mg 01/27/24 21:00 07/16/24 20:23 Cetirizine Hcl 10 Mg Tablet PO 02/26/24 20:59 10 mg PM MIRANDA Administration Cyanocobalamin 2,000 mcg 01/28/24 09:00 01/30/24 08:27 Cyanocobalamin (B-12) 500 Mcg Tablet PO 02/27/24 08:59 2,000 mcg DAILY MIRANDA Administration Duloxetine HCl 60 mg 01/27/24 21:00 01/29/24 20:22 Duloxetine Hcl 60 Mg Cap PO 02/26/24 20:59 60 mg QPM MIRANDA Administration Ferrous Sulfate 325 mg 01/27/24 21:00 01/29/24 20:22 Ferrous Sulfate 325 Mg Tab PO 02/26/24 20:59 325 mg QPM MIRANDA Administration Finasteride 5 mg 01/27/24 21:00 01/29/24 20:24 Finasteride 5 Mg Tab PO 02/26/24 20:59 5 mg HS MIRANDA Administration Folic Acid 1 mg 01/27/24 09:00 01/30/24 08:27 Folic Acid 1 Mg Tab PO 02/26/24 08:59 1 mg QAM MIRANDA Administration Heparin Sodium/Dextrose 25,000 units in 500 mls @ 27 mls/hr 01/28/24 11:15 01/30/24 16:07 Heparin Sodium/Dextrose IV 02/27/24 11:14 1,350 units/hr .[id number] MIRANDA 27 mls/hr Administration Protocol 1,350 UNITS/HR Insulin Aspart 0 units 01/27/24 00:19 01/30/24 17:55 Insulin Aspart Per Unit Charge SC 02/26/24 00:18 4 units ACHS MIRANDA Administration Lorazepam 0.5 mg 01/27/24 00:19 01/29/24 20:22 Lorazepam 0.5 Mg Tab PO 02/26/24 00:18 0.5 mg PM PRN Administration Insomnia Methenamine Hippurate 1 gm 01/27/24 09:00 01/30/24 08:26 Methenamine Hippurate 1 Gm Tab PO 02/26/24 08:59 1 gm BID MIRANDA Administration Metoprolol Tartrate 25 mg 01/29/24 21:00 01/30/24 08:26 Metoprolol Tartrate 25 Mg Tab PO 01/30/24 23:59 25 mg BID MIRANDA Administration Oxycodone HCl 5 mg 01/26/24 22:35 01/29/24 20:22 Oxycodone Hcl Ir 5 Mg Tab (Immediate Release) PO 02/09/24 22:34 5 mg Q4H PRN Administration Pain Pantoprazole Sodium 40 mg 01/27/24 09:00 01/30/24 08:26 Pantoprazole 40 Mg Tab PO 02/26/24 08:59 40 mg QAM MIRANDA Administration Polyethylene Glycol 17 gm 01/28/24 11:00 01/30/24 08:26 Polyethylene (Miralax) 17 Gm Pack PO 02/27/24 10:59 17 gm DAILY MIRANDA Administration Ropinirole HCl 0.25 mg 01/27/24 21:00 01/29/24 20:22 Ropinirole Hcl 0.25 Mg Tablet PO 02/26/24 20:59 0.25 mg HS MIRANDA Administration Tamsulosin HCl 0.4 mg 01/27/24 09:00 01/30/24 08:26 Tamsulosin Hcl 0.4 Mg Cap PO 02/26/24 08:59 0.4 mg QAM MIRANDA Administration
[2024-01-30] MEDS: LOSARTAN POTASSIUM 50 MG TAB PO SCH (20:21)
[2024-01-30 20:58] LABS: ANTI-Xa, UFH(UnfractionatedHep 0.32 IU/ml (0.3-0.7)
[2024-01-31 07:03] LABS: Hematocrit (blood only) 34.3 % (42.0-52.0); Hemoglobin 11.4 g/dl (14.0-18.0); Mean Corpuscular Hemoglobin 30.8 pg (25.0-34.0); Mean Corpuscular Hgb Conc 33.2 g/dL (32.0-36.0); Mean Corpuscular Volume 92.7 fL (80.0-100.0); Mean Platelet Volume 10.2 fL (9.4-12.4); Platelet Count 234 K/uL (130-400); RDW Coefficient of Variation 14.3 % (11.5-14.5); RDW Standard Deviation 47.5 fL (36.4-46.3)
[2024-01-31 07:15] LABS: BUN Creatinine Ratio 30.1 (10-20); Calcium 8.8 mg/dl (8.6-10.3); Creatinine Clr Calc Pharmacy 83.3 ml/min; Est GFR (African American) 95.6 ml/min; Est GFR (Non-African American) 82.5 ml/min; Magnesium 1.8 mg/dl (1.7-2.4); Phosphorus 3.5 mg/dl (2.5-4.9); Potassium 3.9 mmol/L (3.5-5.1)
[2024-01-31] MEDS: METOPROLOL SUCC 25MG EXT REL TAB PO SCH (08:20)
[2024-01-31] MEDS: amLODIPine BESYLATE 5 MG TAB PO SCH (08:20)
[2024-01-31] MEDS: ASPIRIN 81 MG ECTAB PO SCH (08:22)
[2024-01-31] MEDS ORDERED: ENOXAPARIN 1 MG/KG SQ SCH (10:45)
[2024-01-31] MEDS: ENOXAPARIN 100 MG/1ML SYR SQ SCH (12:49)
--- NOTE | 2024-01-31 13:44 | Cardiology Progress Note ---
Date of Service January 31, 2024 Assessment & Plan (1) Sinus tachycardia: (2) First degree AV block: (3) Retroperitoneal bleed: Plan 83-year-old male with a history of coronary heart disease, recurrent stroke, pulmonary embolism. He is on chronic treatment with aspirin 81 mg daily (confirmed per my conversation with patient ) and coumadin, goal INR 2-3. * Overall heart rate trend improved, and patient had 1 prior to hospital cardiac dose of Toprol succinate 25 mg daily. * HypertensionContinue metoprolol, amlodipine, losartan, prehospital doses * Prior to hospital treatment aspirin 81 mg daily already started. * Agree with transitioning back to Coumadin, with plans for vigilant anticoagulation clinic follow-up if patient has a change in his medication such as going on a course of antibiotics. * As noted, patient with multiple recurrent stroke episodes in 2018, with recent current events on varying antiplatelet regimens and was therefore treated with Coumadin. * Irregular anticoagulant would be reasonable alternative however cost has been found to be prohibitively high and per my discussion with the patient before we looked into the co-pay for Eliquis, his preference was to remain on Coumadin. * Heparin discontinued today and patient has been started on a Lovenox bridge. This is a complex situation, certainly an approach of avoiding bridge therapy and allowing INR on Coumadin to come up slowly as an outpatient without bridge would be reasonable albeit with increased risk of thrombotic complication (I would be more worried about stroke than DVT PE). Lovenox bridge in setting of recent thigh and retroperitoneal hematoma does of course. Increased risk of b leeding with noted findings that his spontaneous bleeding problem took place in the setting of an elevated INR, 5.5. Admission and Anticipated Discharge Date Admission Date: January 26, 2024 Subjective Patient seen in cardiology follow up. Denies chest pain or shortness of breath. Telemetry reveals sinus rhythm in the 80s. Brief episode of sinus tachycardia. Review of Systems Review of Systems: All systems reviewed & are unremarkable except as noted in HPI & below Physical Exam Physical Exam: General: no acute distress and stated age Eyes: conjunctiva are pink and non-injected, sclera clear Neck: normal jugular venous pulse, no hepatojugular reflux Chest: normal shape and normal respiratory effort Lungs: clear to auscultation and percussion Cardiac Exam: - regular heart sounds, no murmurs, rubs, or gallops, no jugular venous distention Abdomen: abdomen soft, non-tender, no abnormal masses and no hepatosplenomegaly Musculoskeletal: no gait disturbance, no weakness Extremities: Ecchymosis noted over right thigh Neuro:awake, conversant, follows commands, no focal motor deficits Psych: appropriate affect and insight. Results & Data Vital Signs (Past 12 Hours) Vital Signs Temp Pulse Pulse Resp BP Pulse Ox O2 Del Method 01/31/24 11:24 36.7 C 57 L 18 118/70 91 Room Air 01/31/24 07:34 36.8 C 106 H 18 135/85 93 Room Air 01/31/24 07:17 100 H 01/31/24 03:16 36.6 C 85 18 119/68 92 Room Air Laboratory Results Coagulation 01/31/24 Range/Units 07:37 PT 11.0 (9.0-12.0) Seconds CBC 01/31/24 Range/Units 06:36 WBC 8.00 (4.8-10.8) K/ul RBC 3.70 L (4.70-6.10) M/uL Hgb 11.4 L (14.0-18.0) g/dl Hct 34.3 L (42.0-52.0) % Plt Count 234 (130-400) K/uL Comprehensive Metabolic Panel 01/31/24 Range/Units 06:36 Sodium 137 (136-145) mmol/L Potassium 3.9 (3.5-5.1) mmol/L Chloride 103 (98-107) mmol/L Carbon Dioxide 25 (21-32) mmol/L BUN 25 H (6-23) mg/dl Creatinine 0.83 (0.6-1.4) mg/dl Glucose 131 H (70-99(Fasting)) mg/dl Calcium 8.8 (8.6-10.3) mg/dl Intake and Output 01/30/24 01/31/24 01/31/24 22:59 06:59 14:59 Intake Total 973.183 / 1634.350 150 / 1634.350 Output Total 2150 / 2550 400 / 2550 Balance -1176.817 / -915.650 -250 / -915.650 Intake: IV 313.183 / 824.350 Heparin Sodium/Dextrose 25,000 313.183 / 824.350 units In 500 ml @ 1,250 UNITS/ HR 25 mls/hr IV .Q20H [facility] Rx#: [id number] Oral 660 / 810 150 / 810 Output: Urine Amount (Catheter) 2150 / 2550 400 / 2550 Shahid/Indwelling 2150 / 2550 400 / 2550 Other: Weight 98.1 kg Weight Measurement Method [facility]
--- NOTE | 2024-01-31 14:53 | Hospitalist Progress Note ---
Date of Service January 31, 2024 Assessment & Plan (1) Hypotension: Plan Mr. 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 Patient high risk for recurrent VTE/cryptogenic CVA admitted with retroperitoneal bleeding due to supratherapeutic INR. Bleeding appears to have subsided with stable hemoglobin/hematocrit. Currently on heparin and with stable hgb. Evaluated by Heme/once: "Since patient indicates that he has recurrent UTIs for which he requires antibiotics regularly, he would benefit from switching to a DOAC such as Eliquis which usually does not have any major interactions with antibiotics. Patient reluctant to switch to DOAC until his online marketing analyst agrees with this. I will reach out to his outpatient online marketing analyst to see if he is okay with patient switching to DOAC. If patient's declines DOAC, would need close monitoring of INR whenever he is on antibiotics." Discussion today revealed that eliquis copay would cause financial strain, therefore warfarin will be resumed with close follow up as an outpatient and communication with Urology and AC clinic if started on antibiotics. Patient notable weak and rehab recommended with PT. Discussed with patient, who agrees that he would feel safer at rehab given some unsteadiness with ambulation and stairs. Plan for placement #Retroperitoneal Bleed c/b R iliopsoas Hematoma #Supratherapeutic INR #Acute on Chronic Anemia, iso RPB #b12 deficiency Pt presenting with bruising and expanding thigh hematoma, hematuria INR 5.5 on admission, s/p Vit K, INR now 1.6 Hemoglobin drop from outpatient baseline of [address] femur noting "Retroperitoneal hematoma incompletely evaluated on this exam. Hemorrhage extends into the right thigh." CTA abd/pelvis noting "Right iliopsoas intramuscular hematoma with extension of hemorrhage into the right retroperitoneal space. Overall, there is a moderate amount of intramuscular/retroperitoneal hemorrhage.No evidence for active arterial extravasation." General Surgery consulted, appreciate recs -recommend warm compresses to R lateral thigh at dependant aspect where there is the interval development of edema and skin thickening -can consider resuming blood thinners, start with hep gtt to ensure stability in hbg prior to resuming coumadin -if any issues with ongoing bleeding would need to be transferred to tertiary center with IR capabilities for embolization -No indication for surgical intervention Follow H&H, transfuse PRBC to maintain hemoglobin above 8 and or for symptomatic anemia Hematology consulted Recommends DOAC, eliquis with Copay 244$ (unclear if deductible or not) Vitamin K to reverse coagulopathy given significant hemoglobin drop Continue home folate, iron and b12 supplements- b2 supplement increased to 2000mcg daily Pt currently hemodynamically stable Discontinue heparin Out of pocket cost too expensive for eliquis Start lovenox bridge, warfarin 2.5mg #Sinus Tachycardia Pt with occasional spikes of HR into 130s and 140s on 01/28 EKG sinus with first degree AV block CTA chest ordered to rule out PE- follow Echo routine ordered Cardiology consulted, appreciate recs -s/p IV metoprolol -Continue po home metoprolol Continue to monitor on telemetry #Hypotension Secondary to hypovolemia secondary to RLE bleed secondary to Coumadin coagulopathy Received IV fluids Holding home antihypertensive meds Continue to monitor, resume as able Resolved #Recent UTI POA #CIC recent Cipro Rx for UTI repeat urine Cx with growth of gram positive cocci, small amt Accidental removal of zuniga--encouraged to straight cath -reports only utilizing at bedtime -Will continue to monitor #Rhabdomyolysis resolved * CK elevated on admission at [phone] 341 Mild rhabdomyolysis possibly from R thigh bleed Repeat 116 Resume Statin #hx PE #recurrent CVA #cryptogenic stroke No history of a fib noted on Coumadin INR 5.5 on admission, s/p Vit K INR 1.0 thius am Transition to Lovenox BID with warfarin 2.5mg to start this afternoon INR in am #hx CAD status post stent/PVD Stable #hyperlipidemia on statin Rx, holding as above #BPH/chronic UTI on chronic methenamine Rx #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 Diet: HH/DMII DVT prophylaxis: lovenox, warfarin Dispo: PT/OT:rehab Admission and Anticipated Discharge Date Admission Date: January 26, 2024 Subjective Episode of disorientation in the evening with accidental removal of zuniga Patient reports feeling weak and not safe to go home He states he overall feels better, but is concerned about stability on his feet. He notes that the straight cath here does not work for him, and is attempting to get his son to bring the supply from home to help cath himself If he is unable to he will agree to replacement of zuniga Physical Exam Constitutional: WD/WN, vitals as above Respiratory: normal respiratory effort, lungs clear to auscultation Cardiovascular: RRR, no murmur, no edema Gastrointestinal (Abdomen): normal bowel sounds, soft, nontender, no hepatosplenomegaly Musculoskeletal: no cyanosis or clubbing, extremities motor strength 5/5 Results & Data Results & Data Vital Signs (Past 12 Hours) Vital Signs Temp Pulse Pulse Resp BP Pulse Ox O2 Del Method 01/31/24 11:24 36.7 C 57 L 18 118/70 91 Room Air 01/31/24 07:34 36.8 C 106 H 18 135/85 93 Room Air 01/31/24 07:17 100 H 01/31/24 03:16 36.6 C 85 18 119/68 92 Room Air Laboratory Results Short CBC 01/31/24 Range/Units 06:36 WBC 8.00 (4.8-10.8) K/ul Hgb 11.4 L (14.0-18.0) g/dl Hct 34.3 L (42.0-52.0) % Plt Count 234 (130-400) K/uL BMP 01/31/24 06:36 Sodium 137 Potassium 3.9 Chloride 103 Carbon Dioxide 25 BUN 25 H Creatinine 0.83 Glucose 131 H Calcium 8.8 Cardiac Enzymes 01/31/24 Range/Units 06:36 Total Creatine Kinase 116 (30-223) U/L Medications Administered Home Medications Medication Instructions Recorded Confirmed Last Taken cetirizine 10 mg tablet (Zyrtec) 10 mg PO PM 08/14/19 01/26/24 12/13/22 folic acid 1 mg tablet 1 mg PO QAM 08/14/19 01/26/24 12/14/22 06:00 losartan 50 mg tablet 50 mg PO PM 08/14/19 01/26/24 12/13/22 metoprolol succinate 25 mg 25 mg PO QAM 08/14/19 01/26/24 12/14/22 06:00 tablet,extended release 24 hr nitroglycerin 0.4 mg sublingual 0.4 mg sublingual UD PRN Chest Pain 08/14/19 01/26/24 Unknown tablet pantoprazole 40 mg tablet,delayed 40 mg PO QAM 08/14/19 01/26/24 12/14/22 06:00 release polyethylene glycol 3350 17 17 g PO DAILY PRN Constipation 08/14/19 01/26/24 12/09/21 gram/dose oral powder (Miralax) rosuvastatin 20 mg tablet 20 mg PO PM 08/14/19 01/26/24 12/13/22 cholecalciferol (vitamin D3) 25 25 mcg PO PM 05/22/20 01/26/24 12/13/22 mcg (1,000 unit) tablet (Vitamin D3) lorazepam 1 mg tablet 0.5 mg PO PM PRN Insomnia 05/22/20 01/26/24 03/21/21 ropinirole 0.25 mg tablet 0.25 mg PO HS 03/11/21 01/26/24 12/13/22 ferrous sulfate 325 mg (65 mg 325 mg PO QPM 12/05/21 01/26/24 12/11/22 iron) tablet (Iron (ferrous sulfate)) psyllium husk 3.4 gram/5.4 gram 1 tsp PO DAILY PRN Constipation 12/05/21 01/26/24 12/01/21 oral powder (Metamucil) metformin 1,000 mg tablet 1,000 mg PO BID 04/08/22 01/26/24 12/14/22 06:00 warfarin 2.5 mg tablet 2.5 mg PO UD 06/21/22 01/26/24 12/08/22 methenamine hippurate 1 gram tablet 1 g PO BID #180 tabs 12/20/22 01/26/24 Unknown tamsulosin 0.4 mg capsule See Rx Instructions .Route 11/21/23 01/26/24 Unknown .COMPLEX #90 caps amlodipine 2.5 mg tablet 2.5 mg PO QAM 01/26/24 01/26/24 Unknown calcipotriene 0.005 % topical cream 1 applic topical .BID UD 01/26/24 01/26/24 Unknown cyanocobalamin (vitamin B-12) 1,000 mcg PO DAILY 01/26/24 01/26/24 Unknown 1,000 mcg tablet (Vitamin B-12) duloxetine 60 mg capsule,delayed 60 mg PO QPM 01/26/24 01/26/24 Unknown release dutasteride 0.5 mg capsule 0.5 mg PO HS 01/26/24 01/26/24 Unknown enoxaparin 100 mg/mL subcutaneous 100 mg subcut Q12H 5 days #10 mL 01/31/24 Unknown syringe Active Medications Generic Name Dose Route Start Last Admin Trade Name Martin PRN Reason Stop Dose Admin Amlodipine Besylate 2.5 mg 01/31/24 09:00 01/31/24 08:20 Amlodipine Besylate 5 Mg Tab PO 03/01/24 08:59 2.5 mg QAM MIRANDA Administration Aspirin 81 mg 01/31/24 09:00 01/31/24 08:22 Aspirin 81 Mg Ectab PO 03/01/24 08:59 81 mg QAM MIRANDA Administration Cetirizine HCl 10 mg 01/27/24 21:00 01/30/24 20:21 Cetirizine Hcl 10 Mg Tablet PO 02/26/24 20:59 10 mg PM MIRANDA Administration Cyanocobalamin 2,000 mcg 01/28/24 09:00 01/31/24 08:20 Cyanocobalamin (B-12) 500 Mcg Tablet PO 02/27/24 08:59 2,000 mcg DAILY MIRANDA Administration Duloxetine HCl 60 mg 01/27/24 21:00 01/30/24 20:22 Duloxetine Hcl 60 Mg Cap PO 02/26/24 20:59 60 mg QPM MIRANDA Administration Enoxaparin Sodium 100 mg 01/31/24 11:30 01/31/24 12:49 Enoxaparin 100 Mg/1ml Syr SQ 03/01/24 11:29 100 mg Q12H MIRANDA Administration Ferrous Sulfate 325 mg 01/27/24 21:00 01/30/24 20:22 Ferrous Sulfate 325 Mg Tab PO 02/26/24 20:59 325 mg QPM MIRANDA Administration Finasteride 5 mg 01/27/24 21:00 01/30/24 20:21 Finasteride 5 Mg Tab PO 02/26/24 20:59 5 mg HS MIRANDA Administration Folic Acid 1 mg 01/27/24 09:00 01/31/24 08:20 Folic Acid 1 Mg Tab PO 02/26/24 08:59 1 mg QAM MIRANDA Administration Heparin Sodium/Dextrose 25,000 units in 500 mls @ 0 mls/hr 01/28/24 11:15 01/30/24 20:36 Heparin Sodium/Dextrose IV 02/27/24 11:14 0 units/hr .Q0M MIRANDA 0 mls/hr Titration Protocol 0 UNITS/HR Insulin Aspart 0 units 01/27/24 00:19 01/31/24 12:50 Insulin Aspart Per Unit Charge SC 02/26/24 00:18 2 units ACHS MIRANDA Administration Lorazepam 0.5 mg 01/27/24 00:19 01/29/24 20:22 Lorazepam 0.5 Mg Tab PO 02/26/24 00:18 0.5 mg PM PRN Administration Insomnia Losartan Potassium 50 mg 01/30/24 21:00 01/30/24 20:21 Losartan Potassium 50 Mg Tab PO 02/29/24 20:59 50 mg PM MIRANDA Administration Methenamine Hippurate 1 gm 01/27/24 09:00 01/31/24 08:22 Methenamine Hippurate 1 Gm Tab PO 02/26/24 08:59 1 gm BID MIRANDA Administration Metoprolol Succinate 25 mg 01/31/24 09:00 01/31/24 08:20 Metoprolol Succ 25mg Ext Rel Tab PO 03/01/24 08:59 25 mg QAM MIRANDA Administration Oxycodone HCl 5 mg 01/26/24 22:35 01/30/24 22:38 Oxycodone Hcl Ir 5 Mg Tab (Immediate Release) PO 02/09/24 22:34 5 mg Q4H PRN Administration Pain Pantoprazole Sodium 40 mg 01/27/24 09:00 01/31/24 08:21 Pantoprazole 40 Mg Tab PO 02/26/24 08:59 40 mg QAM MIRANDA Administration Polyethylene Glycol 17 gm 01/28/24 11:00 01/31/24 08:19 Polyethylene (Miralax) 17 Gm Pack PO 02/27/24 10:59 17 gm DAILY MIRANDA Administration Ropinirole HCl 0.25 mg 01/27/24 21:00 01/30/24 20:22 Ropinirole Hcl 0.25 Mg Tablet PO 02/26/24 20:59 0.25 mg HS MIRANDA Administration Tamsulosin HCl 0.4 mg 01/27/24 09:00 01/31/24 08:20 Tamsulosin Hcl 0.4 Mg Cap PO 02/26/24 08:59 0.4 mg QAM MIRANDA Administration
[2024-01-31] MEDS: WARFARIN SOD 2.5 MG TAB PO SCH (17:45)
[2024-01-31] MEDS: ROSUVASTATIN CALCIUM 20 MG TAB PO SCH (20:06)
[2024-01-31] MEDS: CHOLECALCIFEROL 25 MCG (1000 UNITS) TAB PO SCH (20:06)
[2024-02-01 16:48] LABS: INR 1.1 (0.9-1.1); Prothrombin Time 11.4 Seconds (9.0-12.0)
[2024-02-01 23:34] LABS: Hematocrit (blood only) 32.7 % (42.0-52.0); Hemoglobin 10.7 g/dl (14.0-18.0); Mean Corpuscular Hemoglobin 31.1 pg (25.0-34.0); Mean Corpuscular Hgb Conc 32.7 g/dL (32.0-36.0); Mean Corpuscular Volume 95.1 fL (80.0-100.0); Mean Platelet Volume 10.1 fL (9.4-12.4); Platelet Count 259 K/uL (130-400); RDW Coefficient of Variation 14.8 % (11.5-14.5); Red Blood Count 3.44 M/uL (4.70-6.10); White Blood Count 7.11 K/ul (4.8-10.8)
== END 2024-02-01 15:41 | DRG 813 ==
LOC: ED 19:51 → 2W 22:30 → SUATTDRO 22:30 → 2W 23:48

== ENCOUNTER 2024-02-27 20:18 | Observation (INO) ==
[2024-02-27 21:25] LABS: Calcium 9.6 mg/dl (8.6-10.3); Potassium 4.1 mmol/L (3.5-5.1)
[2024-02-27 21:29] LABS: Basophils # (auto) 0.03 K/uL (0.00-0.20); Basophils % (auto) 0.4 %; Eosinophils # (auto) 0.19 K/uL (0.00-0.50); Eosinophils % (auto) 2.4 %; Hematocrit (blood only) 42.2 % (42.0-52.0); Immature Granulocytes # (auto) 0.02 K/uL (0.01-0.20); Immature Granulocytes % (auto) 0.3 %; Lymphocytes # (auto) 0.93 K/uL (1.20-3.40); Lymphocytes % (auto) 11.8 %; Mean Corpuscular Hgb Conc 33.2 g/dL (32.0-36.0); Mean Corpuscular Volume 93.4 fL (80.0-100.0); Mean Platelet Volume 10.5 fL (9.4-12.4); Monocytes # (auto) 0.66 K/uL (0.11-0.59); Monocytes % (auto) 8.4 %; Neutrophils # (auto) 6.05 K/uL (1.40-6.50); Neutrophils % (auto) 76.7 %; Platelet Count 221 K/uL (130-400); RDW Coefficient of Variation 14.4 % (11.5-14.5); RDW Standard Deviation 49.7 fL (36.4-46.3); Red Blood Count 4.52 M/uL (4.70-6.10); White Blood Count 7.88 K/ul (4.8-10.8)
[2024-02-27 21:30] LABS: Creatinine Clr Calc Pharmacy 91.4 ml/min; Est GFR (African American) 99.7 ml/min
[2024-02-27 21:31] LABS: INR 2.1 (0.9-1.1); Prothrombin Time 20.9 Seconds (9.0-12.0)
--- NOTE | 2024-02-27 22:14 | Emergency Department Note ---
Impression & Plan Acute hip pain ED Provider Note NAME: JUANY MALONE AGE: 83 SEX: M : 1940 ARRIVES VIA: Ambulance INFORMANT: Patient, ED PROVIDER(S): Duane Mendez MD CHIEF COMPLAINT: Fall, hip pain HPI: This is an 83-year-old male presenting after a fall. Patient made a trauma alert on arrival due to his warfarin use. Patient had a fall onto his right hip. He notes pain to his right hip. He notes no pain to the rest of the body including abdomen, chest, head, neck. He did not hit his head or have LOC. ROS: See above HPI for pertinent positives & negatives. A total of 10 systems reviewed and were otherwise negative. PAST MEDICAL HISTORY: See Below PAST SURGICAL HISTORY: See Below FAMILY HISTORY: See Below SOCIAL HISTORY: See Below HOME MEDICATIONS: See Below ALLERGIES: See Below VITALS: See Below PHYSICAL EXAMINATION: General: resting comfortably in no acute distress Head: Normocephalic and atraumatic Eyes: Normal inspection, extraocular muscles intact Ear, nose, throat: Normal external exam Neck: Normal range of motion Respiratory: lungs clear to auscultation bilaterally Cardiovascular: Regular rate/rhythm, no murmur GI: soft, nontender, no guarding or rebound Extremities: 2+ pulses bilateral extremities, pain to right hip with movement Neuro: The patient awake and alert, appropriately conversive, no focal deficits, symmetric faces Skin: Warm, dry, and intact MEDICAL DECISION MAKING: This is a an 83-year-old male presenting after a fall. Patient is a trauma alert based on mechanism and warfarin. - blood work is reviewed showing no leukocytosis or anemia. INR 2.1. Lipase within normal limits. -X-ray of the right hip does not reveal acute osseous fracture or dislocation upon independent interpretation, does show possible right sided osteophyte -Chest Xray independently interpreted by me showing no pneumothorax, focal opacity, or pleural effusions. -Patient cannot walk at this time due to pain. Will admission due to persistent pain. Differential diagnosis: Hip fracture, pubic rami fracture, open book fracture, ER treatment provided: See below Independent History obtained from: Son/ Diagnostics interpreted by me Cardiac Monitoring: An order was placed for continuous cardiac monitoring. The monitor shows a rate of 62 with sinus rhythm. Laboratory studies: As stated above and show below. Imaging studies: See below. Past Med/Surg History Problem List (Updated 02/27/24 @ 23:57 by Duane Mendez MD) Acute hip pain (Acute) First degree AV block Sinus tachycardia Retroperitoneal bleed Hematoma Hypotension Hematuria (Acute) Contusion of leg, right (Acute) Supratherapeutic INR (Acute) Recurrent UTI (urinary tract infection) Heme positive stool Stroke Migraine headache (Chronic) Urinary retention Incomplete emptying of bladder Elevated prostate specific antigen (PSA) Gastric polyp Encounter for pre-operative examination Encounter for pre-operative examination Colon polyp Anemia Anemia (Acute) Anemia Encounter for pre-operative examination Status post recent transurethral resection of prostate (Chronic) Status post lumbar laminectomy (Chronic) BPH (benign prostatic hyperplasia) (Chronic) History of pulmonary embolism (Chronic) early , post op complication > Warfarin Dyslipidemia (Chronic) Medical History Diabetes mellitus, type 2 On anticoagulant therapy warfarin daily Hard of hearing Peripheral neuropathy bilat legs Restless leg syndrome Urinary retention on occasion, meds help per pt Stroke 2018 > no residual effects > [facility] > was in therapy for reading for a while, all better now > doesn't see neuro anymore Myocardial Infarction early Pancreatic cyst just monitoring PAF (paroxysmal atrial fibrillation) Elevated INR T2DM (type 2 diabetes mellitus) Actinic keratosis 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 Poole with [facility]> last checked around October 2020 > unsure of size Hypertension Coronary artery disease follows with CVA (cerebral vascular accident) Surgical History History of cardiac cath several > late 1989's early , last one 2007> no stents any time History of tooth extraction History of esophagogastroduodenoscopy (EGD) History of colonoscopy last 12/09/21 @ [facility] History of cataract surgery right Hx of tonsillectomy Family History Father Prostate cancer Diabetes Heart disease Hypertension Other No family history of adverse response to anesthesia Social History Smoking Status: Never smoker Second Hand Exposure: No; Do You Dip or Chew Tobacco: No; Hx Alcohol Use: No Hx Substance Use: No Preferred Language: Chinese Communication Ability: Effective Materials And Processes Manager Required: No Beliefs That Will Affect Care: None marital status: Current Living Situation: Spouse Current Living Situation Comment: Lives with and son current occupational status: retired Feels Safe at Home: Yes Diet: regular Assistive Devices: Cane, CPAP, Denture - Upper, Glasses and Hearing Aid - Bilateral Allergies Allergies Allergy/AdvReac Type Severity Reaction Status Date / Time propoxyphene Allergy Intermediate Hallucinati Verified 02/27/24 23:05 ng omeprazole Allergy Unknown Unknown Verified 02/27/24 23:05 ELINOR Inhibitors AdvReac Mild Cough Verified 02/27/24 23:05 gabapentin AdvReac Mild Nausea Verified 02/27/24 23:05 Home Meds Home Medications Medication Instructions Recorded Confirmed cetirizine 10 mg tablet (Zyrtec) 10 mg PO PM 08/14/19 02/27/24 folic acid 1 mg tablet 1 mg PO QAM 08/14/19 02/27/24 losartan 50 mg tablet 50 mg PO PM 08/14/19 02/27/24 metoprolol succinate 25 mg 25 mg PO QAM 08/14/19 02/27/24 tablet,extended release 24 hr nitroglycerin 0.4 mg sublingual 0.4 mg sublingual UD PRN Chest Pain 08/14/19 02/27/24 tablet pantoprazole 40 mg tablet,delayed 40 mg PO QAM 08/14/19 02/27/24 release polyethylene glycol 3350 17 17 g PO DAILY PRN Constipation 08/14/19 02/27/24 gram/dose oral powder (Miralax) rosuvastatin 20 mg tablet 20 mg PO PM 08/14/19 02/27/24 cholecalciferol (vitamin D3) 25 25 mcg PO PM 05/22/20 02/27/24 mcg (1,000 unit) tablet (Vitamin D3) lorazepam 1 mg tablet 0.5 mg PO ONCE HS PRN Insomnia 05/22/20 02/27/24 ropinirole 0.25 mg tablet 0.25 mg PO HS 03/11/21 02/27/24 ferrous sulfate 325 mg (65 mg 325 mg PO QPM 12/05/21 02/27/24 iron) tablet (Iron (ferrous sulfate)) psyllium husk 3.4 gram/5.4 gram 1 tsp PO DAILY PRN Constipation 12/05/21 02/27/24 oral powder (Metamucil) metformin 1,000 mg tablet 1,000 mg PO BID 04/08/22 02/27/24 warfarin 2.5 mg tablet 5 mg PO 2XWK 06/21/22 02/27/24 amlodipine 2.5 mg tablet 2.5 mg PO QAM 01/26/24 02/27/24 calcipotriene 0.005 % topical cream 1 applic topical .BID UD 01/26/24 02/27/24 cyanocobalamin (vitamin B-12) 1,000 mcg PO DAILY 01/26/24 02/27/24 1,000 mcg tablet (Vitamin B-12) duloxetine 60 mg capsule,delayed 60 mg PO QPM 01/26/24 02/27/24 release dutasteride 0.5 mg capsule 0.5 mg PO HS 01/26/24 02/27/24 tamsulosin 0.4 mg capsule 0.4 mg PO DAILY 02/27/24 02/27/24 warfarin 2.5 mg tablet 2.5 mg PO [id number] 02/27/24 02/27/24 Previous Rx's Medication Instructions Recorded methenamine hippurate 1 gram tablet 1 g PO BID #180 tabs 12/20/22 Results & Data (ED) Vital Signs Vital Signs - 24 hr 02/27/24 20:21 02/27/24 20:26 02/27/24 20:40 Temperature 36.6 C Temperature Source Oral Pulse Rate 76 80 Pulse Rate [Apical] Pulse Rhythm Regular Pulse Strength Normal Pulse Strength [Bilateral] Normal Respiratory Rate 18 Respiratory Effort / Characteristics Non-Labored Spontaneous Respiratory Depth Normal Respiratory Pattern Regular Blood Pressure 160/89 H Blood Pressure [Right Arm] Blood Pressure Mean 112 Blood Pressure Mean [Right Arm] Pulse Oximetry 97 Oxygen Delivery Method Room Air Room Air Oxygen Flow Rate 97 Sepsis Recent Fever Within 48 Hours No Sepsis New/Unexplained Change in Mental Status No Sepsis Action Taken by Nursing No Action Required 02/27/24 21:00 02/27/24 22:00 Temperature Temperature Source Pulse Rate Pulse Rate [Apical] 72 75 Pulse Rhythm Pulse Strength Pulse Strength [Bilateral] Respiratory Rate 18 18 Respiratory Effort / Characteristics Non-Labored Spontaneous Non-Labored Spontaneous Respiratory Depth Normal Normal Respiratory Pattern Regular Regular Blood Pressure Blood Pressure [Right Arm] 166/94 H 149/70 H Blood Pressure Mean Blood Pressure Mean [Right Arm] 118 96 Pulse Oximetry 97 96 Oxygen Delivery Method Room Air Room Air Oxygen Flow Rate Sepsis Recent Fever Within 48 Hours Sepsis New/Unexplained Change in Mental Status Sepsis Action Taken by Nursing Laboratory Data 02/27/24 20:24 02/27/24 20:24 Lab Results 02/27/24 Range/Units 20:24 WBC 7.88 (4.8-10.8) K/ul RBC 4.52 L (4.70-6.10) M/uL Hgb 14.0 (14.0-18.0) g/dl Hct 42.2 (42.0-52.0) % MCV 93.4 (80.0-100.0) fL MCH 31.0 (25.0-34.0) pg MCHC 33.2 (32.0-36.0) g/dL RDW Std Deviation 49.7 H (36.4-46.3) fL RDW Coeff of Argelia 14.4 (11.5-14.5) % Plt Count 221 (130-400) K/uL MPV 10.5 (9.4-12.4) fL Immature Gran % (Auto) 0.3 % Neut % (Auto) 76.7 % Lymph % (Auto) 11.8 % Clark % (Auto) 8.4 % Eos % (Auto) 2.4 % Baso % (Auto) 0.4 % Neut # (Auto) 6.05 (1.40-6.50) K/uL Lymph # (Auto) 0.93 L (1.20-3.40) K/uL Clark # (Auto) 0.66 H (0.11-0.59) K/uL Eos # (Auto) 0.19 (0.00-0.50) K/uL Baso # (Auto) 0.03 (0.00-0.20) K/uL Immature Gran # (Auto) 0.02 (0.01-0.20) K/uL PT 20.9 H (9.0-12.0) Seconds INR 2.1 H (0.9-1.1) Sodium 137 (136-145) mmol/L Potassium 4.1 (3.5-5.1) mmol/L Chloride 102 (98-107) mmol/L Carbon Dioxide 27 (21-32) mmol/L Anion Gap 8 (3-11) BUN 12 (6-23) mg/dl Creatinine 0.75 (0.6-1.4) mg/dl Est Cr Clr Drug Dosing 91.4 ml/min Est GFR ( Amer) 99.7 ml/min Est GFR (Non-Af Amer) 86.0 ml/min BUN/Creatinine Ratio 16.0 (10-20) Glucose 106 H (70-99(Fasting)) mg/dl Calcium 9.6 (8.6-10.3) mg/dl Total Creatine Kinase 38 (30-223) U/L Discharge Plan Visit Data Chief Complaint: Trauma Stated Complaint: GLF, HIP PAIN ED Provider: Duane Mendez Discharge Problem: Acute hip pain Patient Disposition: Admitted As Inpatient Discharge Instructions Interventions: ED Discharge Assessment Last Done: 02/27/24 23:14
--- NOTE | 2024-02-27 22:33 | History & Physical Report ---
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 DM2 on oral medications, well-controlled as of recent hemoglobin A1c of 6.2 last August 2023 History of retroperitoneal bleed History of ambulatory dysfunction/recurrent falls OBS GMF CT right femur/right hip re: traumatic pain in the setting of Coumadin Rx Hold Coumadin for now until CT results available Analgesia, extra amlodipine 1 dose now ISS BG goal 1 10-1 40, carb count coverage PT OT eval contingent on CT results DVT prophylaxis. SCDs if INR less than 2 while Coumadin on hold Full code Patient requesting updates providers. Hoa Morfin, contact #[phone]. Text document was generated using [employer] voice recognition software. It may contain grammatical or spelling errors. Kindly contact undersigned for clarification of any documentation item in question. History of Present Illness Chief Complaint: Right hip pain, fall Primary Care Provider: Anurag Mora MD History obtained from the patient and records. 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 Patient Coumadin resumed on discharge due to history of cryptogenic strokes. Hematology recommended DOAC Rx (over Coumadin) given absence of interaction with antibiotics. Patient declined recommendation due to prohibitive cost of DOAC Rx. Hemoglobin 10.7 at time of discharge. Patient leg gave out while walking in his garage this afternoon. No head trauma, no chest pain, no SOB, no LOC. Able to get up despite achy right hip pain. Worsening right hip pain after fall. MEDICAL HISTORY: As above. SURGERIES: back surgery, TURP, cataract surgery FAMILY HISTORY:Dementia, breast cancer, colon cancer, DM, heart disease, skin cancer PERSONAL AND SOCIAL HISTORY: Nonsmoker, no ETOH intake. 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 Allergies Allergy/AdvReac Type Severity Reaction Status Date / Time propoxyphene Allergy Intermediate Hallucinati Verified 02/27/24 23:05 ng omeprazole Allergy Unknown Unknown Verified 02/27/24 23:05 ELINOR Inhibitors AdvReac Mild Cough Verified 02/27/24 23:05 gabapentin AdvReac Mild Nausea Verified 02/27/24 23:05 Home Medications Medication Instructions Recorded Confirmed Type cetirizine 10 mg tablet (Zyrtec) 10 mg PO PM 08/14/19 02/27/24 History folic acid 1 mg tablet 1 mg PO QAM 08/14/19 02/27/24 History losartan 50 mg tablet 50 mg PO PM 08/14/19 02/27/24 History metoprolol succinate 25 mg 25 mg PO QAM 08/14/19 02/27/24 History tablet,extended release 24 hr nitroglycerin 0.4 mg sublingual 0.4 mg sublingual UD PRN Chest Pain 08/14/19 02/27/24 History tablet pantoprazole 40 mg tablet,delayed 40 mg PO QAM 08/14/19 02/27/24 History release polyethylene glycol 3350 17 17 g PO DAILY PRN Constipation 08/14/19 02/27/24 History gram/dose oral powder (Miralax) rosuvastatin 20 mg tablet 20 mg PO PM 08/14/19 02/27/24 History cholecalciferol (vitamin D3) 25 25 mcg PO PM 05/22/20 02/27/24 History mcg (1,000 unit) tablet (Vitamin D3) lorazepam 1 mg tablet 0.5 mg PO ONCE HS PRN Insomnia 05/22/20 02/27/24 History ropinirole 0.25 mg tablet 0.25 mg PO HS 03/11/21 02/27/24 History ferrous sulfate 325 mg (65 mg 325 mg PO QPM 12/05/21 02/27/24 History iron) tablet (Iron (ferrous sulfate)) psyllium husk 3.4 gram/5.4 gram 1 tsp PO DAILY PRN Constipation 12/05/21 02/27/24 History oral powder (Metamucil) metformin 1,000 mg tablet 1,000 mg PO BID 04/08/22 02/27/24 History warfarin 2.5 mg tablet 5 mg PO 2XWK 06/21/22 02/27/24 History methenamine hippurate 1 gram tablet 1 g PO BID #180 tabs 12/20/22 02/27/24 Rx amlodipine 2.5 mg tablet 2.5 mg PO QAM 01/26/24 02/27/24 History calcipotriene 0.005 % topical cream 1 applic topical .BID UD 01/26/24 02/27/24 History cyanocobalamin (vitamin B-12) 1,000 mcg PO DAILY 01/26/24 02/27/24 History 1,000 mcg tablet (Vitamin B-12) duloxetine 60 mg capsule,delayed 60 mg PO QPM 01/26/24 02/27/24 History release dutasteride 0.5 mg capsule 0.5 mg PO HS 01/26/24 02/27/24 History tamsulosin 0.4 mg capsule 0.4 mg PO DAILY 02/27/24 02/27/24 History warfarin 2.5 mg tablet 2.5 mg PO 5XWK 02/27/24 02/27/24 History Past Med/Surg History Problem List Acute hip pain (Acute) First degree AV block Sinus tachycardia Retroperitoneal bleed Hematoma Hypotension Hematuria (Acute) Contusion of leg, right (Acute) Supratherapeutic INR (Acute) Recurrent UTI (urinary tract infection) Heme positive stool Stroke Migraine headache (Chronic) Urinary retention Incomplete emptying of bladder Elevated prostate specific antigen (PSA) Gastric polyp Encounter for pre-operative examination Encounter for pre-operative examination Colon polyp Anemia Anemia (Acute) Anemia Encounter for pre-operative examination Status post recent transurethral resection of prostate (Chronic) Status post lumbar laminectomy (Chronic) BPH (benign prostatic hyperplasia) (Chronic) History of pulmonary embolism (Chronic) early s, post op complication > Warfarin Dyslipidemia (Chronic) Medical History Diabetes mellitus, type 2 On anticoagulant therapy warfarin daily Hard of hearing Peripheral neuropathy bilat legs Restless leg syndrome Urinary retention on occasion, meds help per pt Stroke 2018 > no residual effects > [facility] > was in therapy for reading for a while, all better now > doesn't see neuro anymore Myocardial Infarction early Pancreatic cyst just monitoring PAF (paroxysmal atrial fibrillation) Elevated INR T2DM (type 2 diabetes mellitus) Actinic keratosis 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 Poole with [facility]> last checked around October 2020 > unsure of size Hypertension Coronary artery disease follows with CVA (cerebral vascular accident) Surgical History History of cardiac cath several > late 1989's early , last one 2007> no stents any time History of tooth extraction History of esophagogastroduodenoscopy (EGD) History of colonoscopy last 12/09/21 @ [facility] History of cataract surgery right Hx of tonsillectomy Family History Father Prostate cancer Diabetes Heart disease Hypertension Other No family history of adverse response to anesthesia Social History Smoking Status: Never smoker Second Hand Exposure: No; Do You Dip or Chew Tobacco: No; Hx Alcohol Use: No Hx Substance Use: No Preferred Language: Austrian Communication Ability: Effective Hospice Massage Therapist Required: No Beliefs That Will Affect Care: None marital status: Current Living Situation: Spouse Current Living Situation Comment: Lives with and son current occupational status: retired Other Information That Helps Us Care for You: No Feels Safe at Home: Yes Safety Concerns: Feels Safe At This Time Diet: regular Assistive Devices: CPAP, Denture - Upper, Glasses and Hearing Aid - Bilateral Review of Systems Review of Systems: As per HPI, all other systems reviewed and negative Physical Exam Physical Exam: GENERAL: Comfortable, pleasant, slightly hard of hearing, no respiratory distress SKIN: Pallor, warm HEENT: Alopecia, pale palpebral conjunctivae, no ptosis, moist buccal mucosa NECK : Supple, no tenderness CHEST : CTA, no tenderness HEART : RRR, no obvious murmurs ABDOMEN: Some distention, nontender EXTREMITIES : Right hip/right thigh tenderness, no other conspicuous deformities noted NEUROLOGIC : Coherent, no facial asymmetry, slightly hard of hearing, gait and stance not assessed Results & Data Results & Data Vital Signs (Past 12 Hours) Vital Signs Temp Pulse Pulse Resp BP BP Pulse Ox 02/27/24 21:00 72 18 166/94 H 97 02/27/24 20:40 80 02/27/24 20:26 02/27/24 20:21 36.6 C 76 18 160/89 H 97 O2 Del Method O2 Flow Rate 02/27/24 21:00 Room Air 02/27/24 20:40 02/27/24 20:26 Room Air 97 02/27/24 20:21 Room Air Laboratory Results Laboratory Results WBC 7.88 K/ul (4.8-10.8) 02/27/24 20: RBC 4.52 M/uL (4.70-6.10) L 02/27/24 20:24 Hgb 14.0 g/dl (14.0-18.0) 02/27/24 20:24 Hct 42.2 % (42.0-52.0) 02/27/24 20:24 MCV 93.4 fL (80.0-100.0) 02/27/24 20:24 MCH 31.0 pg (25.0-34.0) 02/27/24 20:24 MCHC 33.2 g/dL (32.0-36.0) 02/27/24 20:24 RDW Std Deviation 49.7 fL (36.4-46.3) H 02/27/24 20:24 RDW Coeff of Argelia 14.4 % (11.5-14.5) 02/27/24 20: Plt Count 221 K/uL (130-400) 02/27/24 20:24 MPV 10.5 fL (9.4-12.4) 02/27/24 20:24 Immature Gran % (Auto) 0.3 % 02/27/24 20:24 Neut % (Auto) 76.7 % 02/27/24 20:24 Lymph % (Auto) 11.8 % 02/27/24 20:24 [place] % (Auto) 8.4 % 02/27/24 20:24 Eos % (Auto) 2.4 % 02/27/24 20:24 Baso % (Auto) 0.4 % 02/27/24 20:24 Neut # (Auto) 6.05 K/uL (1.40-6.50) 02/27/24 20:24 Lymph # (Auto) 0.93 K/uL (1.20-3.40) L 02/27/24 20:24 [place] # (Auto) 0.66 K/uL (0.11-0.59) H 02/27/24 20:24 Eos # (Auto) 0.19 K/uL (0.00-0.50) 02/27/24 20:24 Baso # (Auto) 0.03 K/uL (0.00-0.20) 02/27/24 20:24 Immature Gran # (Auto) 0.02 K/uL (0.01-0.20) 02/27/24 20:24 PT 20.9 Seconds (9.0-12.0) H 02/27/24 20:24 INR 2.1 (0.9-1.1) H 02/27/24 20:24 Sodium 137 mmol/L (136-145) 02/27/24 20:24 Potassium 4.1 mmol/L (3.5-5.1) 02/27/24 20:24 Chloride 102 mmol/L (98-107) 02/27/24 20:24 Carbon Dioxide 27 mmol/L (21-32) 02/27/24 20:24 Anion Gap 8 (3-11) 02/27/24 20:24 BUN 12 mg/dl (6-23) 02/27/24 20:24 Creatinine 0.75 mg/dl (0.6-1.4) 02/27/24 20:24 Est Cr Clr Drug Dosing 91.4 ml/min 02/27/24 20:24 Est GFR ( Amer) 99.7 ml/min 02/27/24 20:24 Est GFR (Non-Af Amer) 86.0 ml/min 02/27/24 20:24 BUN/Creatinine Ratio 16.0 (10-20) 02/27/24 20:24 Glucose 106 mg/dl (70-99(Fasting)) H 02/27/24 20:24 Calcium 9.6 mg/dl (8.6-10.3) 02/27/24 20:24 Diagnostic Findings Chest x-ray as per my interpretation cardiomegaly
[2024-02-27] MEDS ORDERED: PROMETHAZINE 6.25 MG/50.25 ML BAG IV PRN (22:35)
[2024-02-27] MEDS ORDERED: CARBOHYDRATES FOR HYPOGLYCEMIA PO PRN (22:36)
[2024-02-27] MEDS ORDERED: ACETAMINOPHEN 325 MG TAB PO PRN (22:36)
[2024-02-27] MEDS ORDERED: DEXTROSE 50% 50 ML SYRINGE IV PRN (22:36)
[2024-02-27] MEDS ORDERED: GLUCOSE 10 TAB/TUBE PO PRN (22:36)
[2024-02-27] MEDS ORDERED: GLUCAGON FOR INJ 1 MG VIAL SQ PRN (22:36)
[2024-02-27] MEDS ORDERED: GLUCOSE 40% GEL 15 GM TUBE PO PRN (22:36)
[2024-02-28] MEDS: INSULIN ASPART PER UNIT CHARGE SC SCH (00:10)
[2024-02-28] MEDS: ACETAMINOPHEN 325 MG TAB PO STA (00:15)
[2024-02-28] MEDS: amLODIPine BESYLATE 5 MG TAB PO ONE (00:57)
[2024-02-28] MEDS ORDERED: POLYETHYLENE (MIRALAX) 17 GM PACK PO PRN (01:37)
[2024-02-28] MEDS ORDERED: LORazepam 0.5 MG TAB PO PRN (01:37)
[2024-02-28] MEDS: LOSARTAN POTASSIUM 50 MG TAB PO STA (02:10)
[2024-02-28] MEDS: traMADol HCL 50 MG TABLET PO PRN (02:16)
--- NOTE | 2024-02-28 02:30 | CT Scan Report ---
Exam(s): CT EXTREMITY RIGHT LOWER Without Contrast EXAM: CT Right Lower Extremity Without Intravenous Contrast CLINICAL HISTORY: Reason for exam: pain, coumadin. TECHNIQUE: Axial computed tomography images of the right lower extremity without intravenous contrast. CTDI is 16.49 mGy and DLP is 1324.74 mGy-cm. Automated exposure control was utilized for the study. A dose lowering technique was utilized adhering to the principles of ALARA. COMPARISON: No relevant prior studies available. FINDINGS: Bones/joints: Unremarkable. No acute fracture. No dislocation. Soft tissues: Unremarkable. IMPRESSION: No femur fracture. Refer to the concomitant hip CT scan, where additional findings are described. Electronically signed by: Ranjith Lara MD 02/28/24 02:30 AM
--- NOTE | 2024-02-28 02:36 | CT Scan Report ---
Exam(s): CT RIGHT HIP Without Contrast EXAM: CT Right Lower Extremity Without Intravenous Contrast, Hip CLINICAL HISTORY: Reason for exam: pain, coumadin. TECHNIQUE: Axial computed tomography images of the right hip without intravenous contrast. CTDI is 16.49 mGy and DLP is 1324.74 mGy-cm. Automated exposure control was utilized for the study. A dose lowering technique was utilized adhering to the principles of ALARA. COMPARISON: No relevant prior studies available. FINDINGS: Bones/joints: Diffuse osseous demineralization. No acute fracture or subluxation. Soft tissues: Masslike calcification throughout the iliopsoas, concerning for severe, chronic iliopsoas bursitis. Heterotopic ossification at the lesser trochanter. IMPRESSION: 1. No acute fracture or subluxation. 2. 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 Recommend MRI for further evaluation. Electronically signed by: Ranjith Lara MD 02/28/24 02:34 AM
--- OUTSIDE RECORDS SUMMARY | 2024-02-28 04:39 | External Medical Summary | Summary of Care ---
Author Name Unknown Organization [facility] Address [address] [place] [address] Phone [phone] Care Team Providers Care Climatology Professor Name Role Phone Anurag Mora MD Primary Care Provider + Reason for Visit * Reason Comments Appointment Encounter Details Date Type Department Care Team (Late st Contact Info) Description 02/08/2024 6:10 PM EDT Pharmacy Pharmacy, [facility] [address] [address] Pharmacist1, [facility] [address] [facility] [place] [address] H/O ischemic multifocal posterior circulation stroke*; History of pulmonary embolism Allergies Active Allergy Reactions Criticality Noted Date Comments Deandre Inhibitors Cough Medium 05/25/2008 Propoxyphene N-Acetaminophen Nausea/vomiting Low 04/26/2010 Gabapentin Nausea/vomiting Low 04/10/2011 Omeprazole 12/05/2002 bad side effects documented as of this encounter (statuses as of 02/14/2024) Medications Medication Sig Dispensed Refills Start Date End Date Status FOLIC ACID TABS 1 MG ORIndications:Acute NE, anterior wall (HCC) 1 TABLET DAILY 30 [...] 10 cm every night at bedtime. Active WiserTogetherTouch Verio Flex System w/Device KitIndications:High blood sugar,Type 2 diabetes mellitus with hemoglobin A1c goal of less than 7.0% ([facility]) Use as directed. Use to test blood [...] 5% 5-fluorouracil cream) 60 g 10/18/2022 Active rOPINIRole HCl 0.25 MG Oral Tablet (Requip)Indications: Restless legs syndrome TAKE 1 TABLET BY MOUTH AT BEDTIME WITH FOOD 90 Tablet 3 06/20/2023 Active Vitamin B-12 1000 MCG Oral Tablet (Cyanocobalamin) Take 1 Tablet by mouth in the morning. Active OneTouch Delica Plus [id number] :Type 2 diabetes mellitus with hemoglobin A1c goal of less than 7.0% ([facility]),High blood sugar USE TO CHECK GLUCOSE ONCE DAILY 100 Each 3 08/22/2023 Active OneTouch Verio In Vitro Strip (Glucose Blood)Indications:Ty pe 2 diabetes mellitus with hemoglobin A1c goal of less than 7.0% ([facility]),High blood sugar USE 1 STRIP TO CHECK [...] Oral Tablet (Coumadin)Indication s:PAF (paroxysmal atrial fibrillation) ([facility]) TAKE 2 TABLETS BY MOUTH ON SUNDAY AND 1 TABLET ON OTHER DAYS OF THE WEEK OR DIRECTED BY COAG CLINIC 104 Tablet 2 11/22/2023 Active metFORMIN HCl 1000 MG Oral Tablet (Glucophage)Indicati ons:High blood sugar,Type 2 diabetes mellitus with hemoglobin A1c goal of less than 7.0% ([facility]) TAKE 1 TABLET BY MOUTH WITH BREAKFAST AND DINNER 180 Tablet 2 11/22/2023 Active Losartan Potassium 50 MG Oral Tablet (Cozaar)Indications: HTN, goal below 140/90,ASCVD (arteriosclerotic cardiovascular disease) TAKE 1 TABLET BY MOUTH TWICE DAILY 180 Tablet 3 11/22/2023 Active Additional Information Patient taking differently: QHS, Reported on 11/29/2023 amLODIPine Besylate 2.5 MG Oral Tablet (Norvasc)Indications :HTN, goal below 140/90 TAKE 1 TABLET BY MOUTH DAILY 90 Tablet 3 02/06/2024 Active documented as of this encounter (statuses as of 02/14/2024) Active Problems Problem Noted Date Diagnosed Date [...] of inactive term GERD (gastroesophageal reflux disease) 2 Overview: 08/20 EGD: - Hiatus hernia. - [...] as of this encounter (statuses as of 02/14/2024) Resolved Problems Problem Noted Date Diagnosed Date Resolved Date Sinus pause 07/26/2018 10/16/2018 History of malignant neoplasm of skin 05/02/2018 04/08/2019 History of migraine 05/02/2018 04/08/20 19 Cryptogenic stroke 01/21/2018 9 Anticoagulated on warfarin 01/21/2018 0 08/05/2021 Prediabetes 08/28/2017 06/30/2021 Overview: Per Prediabetes protocol #1 RLL 1.4 cm nodule 05/04/2011 12/01/2017 Overview: 08/2009 CT -- 34p05za 11/2012 CT -- 11x8mm, f/u in 18 months OSTEOARTHRITIS HIP- RIGHT 02/03/2011 ADVANCE DIRECTIVE INFORMATION 11/30/2009 08/05/2021 Overview: No, Advance Directive brochure given to patient at prior appointment. RLL 1.4 cm nodule 09/03/2009 05/04/2011 Chronic pharyngitis 02/02/2008 03/30/20 17 FAMILY HX-GI MALIGNANCY 05/14/200607/17 Overview: Mother colon ca Colonoscopy:12/06 Impression: - One 2 mm polyp in the proximal ascending colon. Resected and retrieved. - Circumscribed focal area of erythematous mucosa in the cecum. - Internal, non bleeding, small hemorrhoids were found. - The exam was otherwise normal to the cecum. Recommendation: - Repeat colonoscopy in 5 years for surveillance.- tubular adenoma Migraine without aura 05/15/20052017 FDC current use of ant icoagulant therapy 07/08/2003 03/12/2012 Overview: ICD-10 update of inactive term HYPERTENSIVE HRT DIS NOS 10/15/200202/2008 CRESCENDO ANGINA 06/09/2002 03/23/2010 Mixed dyslipidemia 06/09/2002 Overview: Per Lipid Taxonomy. Rosacea 04/11/2002 03/30/2017 Malignant neoplasm of skin of parts of face 01/07/2002 05/02/2018 Overview: ICD-10 update of inactive term HTN, goal below 130/80 01/25 Esophagitis 03/30/2017 Overview: ICD-10 update of inactive term Allergic rhinitis 08/23/2007 documented as of this encounter (statuses as of 02/14/2024) Immunizations Name Administration Dates Next Due COVID-19 mRNA, LNP-s, No Pre serve, 2-Dose Series ([employer] 04/13/2021,09/11/2020,08/21/2020 COVID-19, LNP-s, No Preserve , Cholo-sucrose, Ages 12+ ([employer]izer) 10/20/2021 Covid-19, Mrna, Lnp-s, Pf, B ivalent, 30 Mcg, IM, 12 yrs and above (Pfizer) 03/29/2022 H1N1 2009 Influenza, IM 07/02/2009 Pneumococcal [...] Influenza, Split, I IV3, With Preserve, Inj 04/01/2015,03/18/2014,03/29/2013,03/16,05/04/2011,05/05/2010,05/10/20 09,05/25/2008,05/09/2007,05/14/2006 03/18/2015 Seasonal Influenza, Trivalen t, Adjuvanted, 65+ [...] on file documented as of this encounter Functional Status Functional Status Response [...] (15 years old or older) No 01/22/20 18 Cognitive Status Response Date of Assessm ent Because of a physical, menta l, or emotional condition, do you have serious difficulty concentrating, remembering, or making decisions? (5 years old or older) No 01/21/2018 documented as of this encounter Progress Notes * Antony Nelson RPh - 02/14/2024 2:50 PM EDT Warfarin was managed in facility by provider when this inr was drawn. Pt now dischaged with [facility]. MTDM assisting in mangement currently. Antony Nelson PharmD, BCACP, [facility] Clinical Pharmacist 02/14/2024, 2:50 PM * Phoebe Pandya handbag operator - 02/08/2024 8:29 AM EDT Looks like pt is currently in a mcc. INR was drawn today, please advise. Thank you, Phoebe Pandya It Systems Analyst Consultant [facility] [phone] 02/08/2024,8:30 AM documented in this encounter Plan of Treatment Upcoming Encounters Date Type Department Care Team (Late st Contact Info) Description 02/18/2024 5:30 PM EDT Anticoagulation Pharmacy, [facility] [address] [facility] [facility] [place] [address] Pharmacist1, [facility] [address] [facility] [place] [address] 02/19/2024 2:40 PM EDT Office Visit General Internal Medicine [facility] [address] [facility] [facility] [place] [address] Anurag Mora MD [address] [facility] [place] [address] 03/04/2024 9:30 AM EDT Office Visit Sleep Disorders Ctr [facility] [address] [facility] [place] [id number] Elena Cuevas CRNP [address] [place] [address] 05/27/2024 8:15 AM EST Office Visit MO[facility] Surgery [facility] [address] [facility] [address] Jewell Pastor MD [address] [facility] [place] [address] 06/23/2024 2:30 PM EST Office Visit Cardiology, [facility] [address] [place] [address] Juancho Nelson, [address] [place] [address] 01/15/2025 1:30 PM EDT Office Visit Neurology [facility] [address] [facility] [address] [place] [address] Evelyn Mcgill PA-C [address] [facility] [place] [address] Scheduled Procedures Name Priority Associated Diagnoses Date/Ti me COLONOSCOPY FLEXIBLE PROXIMA L DIAGNOSTIC Recall History of colonic polyps Health Maintenance Due Date Last Done Comments Zoster Vaccines (2 of 3) 06/29/2011 05/04/2011 Depression Screening 05/26/2023 05/26/2022 Albumin/Creatinine Ratio 07/27/2023 07/27/2022, 02/0 08/2021 COVID-19 Vaccine ( season) 2023 04/30/2023, 03/29/2022, 10/20/2021, Additional history exists HbA1c 02/15/2024 08/17/2023, 01/14, 07/27/2022, Additional history exists Influenza Vaccine (FLU shot) (#1) 2024 04/11/2023, 03/23/2022, 03/15/2021, Additional history exists Diabetic Foot Exam 08/15/2024 08/15/2023, 0 07/26/2022, 08/05/2021 Diabetic Eye Exam 12/17/2024 12/18/2023, , 08/29/2021, Additional history exists GFR 02/07/2025 02/08/2024, 01/14, 08/17/2023, Additional history exists DTaP,Tdap,and Td Vaccines (2 - Td or Tdap) 03/28/2026 03/28/2016, 05/25/2008, 02/04/1996 Colonoscopy 12/15/2027 12/14/2022, 11/14, 12/09/2021, Additional history exists Pneumococcal Vaccine: 65+ Years Completed 10/06/2015, 06/08/2008, 08/06/1998 RETIRED - COLONOSCOPY-EVERY 5 YRS AGES 18-100 Discontinued 12/14/2022, 12/09/2021, 12/09/2021, Additional history exists HPV (Gardasil) Vaccine Aged Out No lo nger eligible based on patient's age to complete this topic Hepatitis B Vaccine Aged Out No longe r eligible based on patient's age to complete this topic MENINGOCOCCAL (MENACTRA/MENVEO) Aged Out No longer eligible based on patient's age to complete this topic documented as of this encounter Medical Devices Implanted Type Area Wool Washing Machine Operator Device Identifier Shelf Expiration Date Model / Serial / Lot Lens Intraoc 18.0 - [id number] - [id number] Implanted:Qty: 1 on 12/11/2017 by Bryan Alfaro MD at OR [facility] Right: Eye [employer] 07/15/2021 [id number] / [id number] / [id number] Clip Quick 2.8mm 230cm - [id number] Implanted:Qty: 1 on 08/11/2020 by Anaid Powell, DO at ENDOSCOPY [facility] [employer] 09/15/2022 [id number]-202UR.A / / [id number] Clip Quick 2.8mm 230cm - [id number] Implanted:Qty: 1 on 08/11/2020 by Anaid Powell, DO at ENDOSCOPY [facility] [employer] 09/15/2022 [id number]-202UR.A / / [id number] Clip Quick 2.8mm 230cm - [id number] Implanted:Qty: 1 on 08/11/2020 by Anaid Powell, DO at ENDOSCOPY [facility] [employer] 09/15/2022 [id number]-202UR.A / / [id number] Clip Quick 2.8mm 230cm - [id number] Implanted:Qty: 1 on 08/11/2020 by Anaid Powell, DO at ENDOSCOPY [facility] [employer] 09/15/2022 [id number]-[id number].A / / [id number] documented as of this encounter Visit Diagnoses Diagnosis H/O ischemic multifocal posterior circulation stroke- Primary Transient ischemic attack (TIA), and cerebral infarction without residual deficits History of pulmonary embolism Personal history of pulmonary embolism documented in this encounter Advance Directives * Full Code (Latest Code Status on File) Date Activated Date Inactivated Comments 12/11/2017 12:38 PM 12/11/2017 7:16 PM This order reflects the patients wishes and were consensually agreed upon. Care Teams Climatology Professor Relationship Specialty Start Date End Date Anurag Mora MD [address] [facility] [place], [place] [address] PCP - General Internal Medicine 05/06/21 documented as of this encounter
--- OUTSIDE RECORDS SUMMARY | 2024-02-28 04:39 | External Medical Summary | Summary of Care ---
Author Name Unknown Organization [facility] Address [address] [facility] [address] Phone [phone] Care Team Providers Care Civil Engineering Design Draftsperson Name Role Phone Anurag Mora MD Primary Care Provider + Reason for Referral * Precert (Within 10 days (routine)) - Authorized Specialty Diagnoses / Procedures Referred By Contac t Referred To Contact Radiology Diagnoses Aortic root enlargement (HCC) Procedures CTA CHEST NON-CORONARY W CONTRAST Juancho Nelson DO [address] [place] [address] Referral ID Status Reason Start Date Expiration Date V isits Requested Visits Authorized [id number] Authorized 02/19/2024 999 999 Reason for Visit * Reason Onset Date Comments Test Results 02/18/2024 Encounter Details Date Type Department Care Team (Late st Contact Info) Description 02/18/2024 Telephone Cardiology, [facility] [address] [place] [id number] Juancho Nelson DO [address] [place] [id number] Test Results Allergies Active Allergy Reactions Criticality Noted Date Comments Deandre Inhibitors Cough Medium 05/25/2008 Propoxyphene N-Acetaminophen Nausea/vomiting Low 04/26/2010 Gabapentin Nausea/vomiting Low 04/10/2011 Omeprazole 12/05/2002 bad side effects documented as of this encounter (statuses as of 02/20/2024) Medications Medication Sig Dispensed Refills Start Date [...] hemoglobin A1c goal of less than 7.0% ([facility]) Use as directed. Use to test blood [...] in the morning. Active OneTouch Delica Plus [id number] :Type 2 diabetes mellitus with hemoglobin A1c goal of less than 7.0% ([facility]),High blood sugar USE TO CHECK GLUCOSE ONCE DAILY 100 Each 3 08/22/2023 Active OneTouch Verio In Vitro Strip (Glucose Blood)Indications:Ty pe 2 diabetes mellitus with hemoglobin A1c goal of less than 7.0% ([facility]),High blood sugar USE 1 STRIP TO CHECK [...] Oral Tablet (Coumadin)Indication s:PAF (paroxysmal atrial fibrillation) ([facility]) TAKE 2 TABLETS BY MOUTH ON SUNDAY AND 1 TABLET ON OTHER DAYS OF THE WEEK OR DIRECTED BY [facility] 104 Tablet 2 11/22/2023 Active metFORMIN HCl 1000 MG Oral Tablet (Glucophage)Indicati ons:High blood sugar,Type 2 diabetes mellitus with hemoglobin A1c goal of less than 7.0% ([facility]) TAKE 1 TABLET BY MOUTH WITH BREAKFAST [...] MOUTH DAILY 90 Tablet 3 02/06/2024 Active DULoxetine HCl 60 MG Oral Capsule Delayed Release Particles (Cymbalta) TAKE 1 CAPSULE BY MOUTH AT NIGHT 90 Capsule 3 02/14/2024 Active documented as of this encounter (statuses as of 02/20/2024) Active Problems Problem Noted Date Diagnosed Date [...] at L5-S1 History of pulmonary embolism Overview: 2001 secondary to DVT L S/p anticoagulation >12 months documented as of this encounter (statuses as of 02/20/2024) Resolved Problems Problem Noted Date Diagnosed Date Resolved Date Sinus pause 07/26/2018 10/16/2018 History of malignant neoplasm of skin 05/02/2018 04/08/2019 History of migraine 05/02/2018 04/08/20 19 Cryptogenic stroke 01/21/2018 9 Anticoagulated on warfarin 01/21/2018 0 08/05/2021 Prediabetes 08/28/2017 06/30/2021 Overview: Per Prediabetes protocol #1 RLL 1.4 cm nodule 05/04/2011 12/01/2017 Overview: 08/2009 CT -- [id number] 11/2012 CT -- 11x8mm, f/u in 18 [...] surveillance.- tubular adenoma Migraine without aura 05/15/20052017 long term care pharmacist current use of ant icoagulant therapy 07/08/2003 [...] as of this encounter (statuses as of 02/20/2024) Immunizations Name Administration Dates Next Due COVID-19 mRNA, LNP-s, No Pre serve, 2-Dose Series (Learnerator) 04/13/2021,09/11/2020,08/21/2020 COVID-19, LNP-s, No Preserve , Cholo-sucrose, [...] No 01/21/2018 documented as of this encounter Miscellaneous Notes * Telephone Encounter - Juancho Nelson DO - 02/18/2024 4:10 PM EDT CTA chest with contrast. * Telephone Encounter - Radha Ashby LPN - 02/18/2024 12:54 PM EDT Called pt, sleeping. Spoke to , she will give pt message. * Telephone Encounter - Radha Ashby LPN - 02/18/2024 12:50 PM EDT ----- Message from Juancho Nelson DO sent at 02/15/2024 1:53 PM EDT ----- Echocardiogram appears similar to prior study with minimal increase in aortic root diameter measuring 5.3 cm on the current study. Previously measuring 5.[address] of the chest for further evaluation. documented in this encounter Plan of Treatment Upcoming Encounters Date Type Department Care Team (Late st Contact Info) Description 02/25/2024 5:40 PM EDT Anticoagulation Pharmacy, [facility] [address] [facility] [place] [address] Pharmacist1, [facility] [address] [facility] [place] [address] 03/04/2024 9:30 AM EDT Office Visit Sleep Disorders Ctr [facility] [address] [facility] [place] [phone] Elena Cuevas CRNP [address] [place] [address] 05/27/2024 8:15 AM EST Office Visit [facility] Surgery [facility] [address] [place], [place] [address] Jewell Patsor MD [address] [facility] [place] [address] 06/23/2024 2:30 PM EST Office Visit Cardiology, [facility] [address] [place] [address] Juancho Nelson DO [address] [place] [address] 01/15/2025 1:30 PM EDT Office Visit Neurology [facility] [address] [place] [address] Evelyn Mcgill PA-C [address] [facility] [place] [address] Scheduled Orders Name Type Priority Associated Diagnoses Orde r Schedule CTA CHEST NON-CORONARY W CONTRAST Medical Imaging Routine Aortic root enlargement (HCC) Expected: 02/19/2024 (Approximate), Expires: 03/20/2025 Scheduled Procedures Name Priority Associated Diagnoses Date/Ti me COLONOSCOPY FLEXIBLE PROXIMA L DIAGNOSTIC Recall History of colonic polyps Health Maintenance Due Date Last Done Comments Zoster Vaccines (2 of 3) 06/29/2011 05/04/2011 Adult Wellness Visit 05/26/2023 05/26/2022 Depression Screening 05/26/2023 05/26/2022 Albumin/Creatinine Ratio 07/27/2023 07/27/2022, 08/2021 COVID-19 Vaccine ( season) 2023 04/30/2023, 03/29/2022, 10/20/2021, Additional history exists HbA1c 02/15/2024 08/17/2023, 01/14, 07/27/2022, Additional history exists Influenza Vaccine (FLU shot) (#1) 2024 04/11/2023, 03/23/2022, 03/15/2021, Additional history exists Diabetic Foot Exam 08/15/2024 08/15/2023, 0 07/26/2022, 08/05/2021 Diabetic Eye Exam 12/17/2024 12/18/2023, , 12/18/2023, Additional history exists GFR 02/07/2025 02/08/2024, 01/14, [...] this encounter Medical Devices Implanted Type Area Ranch Hand Supervisor Device Identifier Shelf Expiration Date Model / Serial / Lot Lens Intraoc 18.0 - [id number] - [id number] Implanted:Qty: 1 on 12/11/2017 by Bryan Alfaro MD at OR [facility] Right: Eye [employer] 07/15/2021 [id number] / [id number] / [id number] Clip Quick 2.8mm 230cm - [id number] Implanted:Qty: 1 on 08/11/2020 by Anaid Powell DO at ENDOSCOPY [facility] [employer] 09/15/2022 HX-202UR.A / / [id number] Clip Quick 2.8mm 230cm - [id number] Implanted:Qty: 1 on 08/11/2020 by Anaid Powell DO at ENDOSCOPY [facility] [employer] 09/15/2022 HX-202UR.A / / [id number] Clip Quick 2.8mm 230cm - [id number] Implanted:Qty: 1 on 08/11/2020 by Anaid Powell DO at ENDOSCOPY [facility] [employer] 09/15/2022 HX-202UR.A / / [id number] Clip Quick 2.8mm 230cm - [id number] Implanted:Qty: 1 on 08/11/2020 by Anaid Powell DO at ENDOSCOPY [facility] [employer] 09/15/2022 HX-202UR.A / / [id number] documented as of this encounter Visit Diagnoses Diagnosis Aortic root enlargement (HCC)- Primary Other specified disorders of arteries and arterioles documented in this encounter Advance Directives * Full Code (Latest Code Status on File) Date Activated Date Inactivated Comments 12/11/2017 12:38 PM 12/11/2017 7:16 PM This order reflects the patients wishes and were consensually agreed upon. Care Teams Civil Engineering Design Draftsperson Relationship Specialty Start Date End Date Anurag Mora MD [address] [place] [address] PCP - General Internal Medicine 05/06/21 documented as of this encounter
--- OUTSIDE RECORDS SUMMARY | 2024-02-28 04:39 | External Medical Summary | Summary of Care ---
Author Name Unknown Organization [facility] Address [address] [place] [address] Phone [phone] Care Team Providers Care Cook Camp Name Role Phone Anurag Mora MD Primary Care Provider + Reason for Visit * Reason Onset Date Comments Hospital Follow-Up Patient disch arged from [facility] rehab on 02/11. [facility] has been coming to his home since then. Patient reports he is still working on getting balance back and has a dull ache on right side of groin. 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); Type 2 diabetes mellitus with hemoglobin A1c goal of less than 7.0% ([facility]); HTN, goal below 140/90; Dyslipidemia, goal LDL below 70; Need for vaccination for zoster Allergies Active Allergy Reactions Criticality Noted Date Comments Deandre Inhibitors Cough Medium 05/25/2008 Propoxyphene N-Acetaminophen Nausea/vomiting Low 04/26/2010 Gabapentin Nausea/vomiting Low 04/10/2011 Omeprazole 12/05/2002 bad side effects documented as of this encounter (statuses as of 02/26/2024) Medications Medication Sig Dispensed Refills Start Date End Date Status FOLIC ACID TABS 1 MG ORIndications:Acut e PA, anterior wall (HCC) 1 TABLET DAILY 30 0 1 Active ZYRTEC 10 MG PO TABSIndications:Al lergic rhinitis due to other allergen One pill by mouth once a day for allergies 90 3 9 Active Polyethylene Glycol 3350 17 GM/SCOOP Oral PowderIndications: as needed Take 17 g by mouth daily as needed for Constipation. Dissolve one heaping tablespoon in 8 ounces of water or juice. 1 Bottle 2 9 Active dutasteride (AVODART) 0.5 MG Capsule Take 1 Capsule by mouth in the morning. Active Cholecalciferol (VITAMIN D3) 25 MCG (1000 UT) CAPS Take 1 Capsule by mouth at bedtime. Active Methenamine Hippurate 1 g TABS Take 1 Tablet by mouth in the morning and 1 Tablet before bedtime. 0 Active CPAP 10 cm every night at bedtime. Active OneTouch Verio Flex System w/Device KitIndications:Hig h blood sugar,Type 2 diabetes mellitus with hemoglobin A1c goal of less than 7.0% ([facility]) Use as directed. Use to test blood glucose once daily. DX: E11.9 1 Kit 1 Active Iron 325 (65 Fe) MG Oral Tablet Take 1 Tablet by mouth in the morning. 2 Active Nitroglycerin 0.4 MG Sublingual Tablet Sublingual (Nitrostat) Place 1 Tablet under the tongue every 5 minutes as needed for Pain, Chest. Active LORazepam 1 MG Oral Tablet (Ativan) TAKE 1 TABLET BY MOUTH NEEDED BEFORE BEDTIME FOR SLEEP 90 Tablet 2 Active Tamsulosin HCl 0.4 MG Oral Capsule (Flomax)Indication s:BPH without obstruction/lower urinary tract symptoms TAKE 1 CAPSULE BY MOUTH DAILY 90 Capsule 3 2 Active Calcipotriene 0.005 % External Cream (Calcitrene) Apply topically to affected area 2 times a day. Apply to scalp, ears, temples and nose as directed (mix with 5% 5-fluorouracil cream) 60 g 3 Active rOPINIRole HCl 0.25 MG Oral Tablet (Requip)Indication s:Restless legs syndrome TAKE 1 TABLET BY MOUTH AT BEDTIME WITH FOOD 90 Tablet 3 3 Active Vitamin B-12 1000 MCG Oral Tablet (Cyanocobalamin) Take 1 Tablet by mouth in the morning. Active OneTouch Delica Plus [id number] ns:Type 2 diabetes mellitus with hemoglobin A1c goal of less than 7.0% ([facility]),High blood sugar USE TO CHECK GLUCOSE ONCE DAILY 100 Each 3 4 Active OneTouch Verio In Vitro Strip (Glucose Blood)Indications: Type 2 diabetes mellitus with hemoglobin A1c goal of less than 7.0% ([facility]),High blood sugar USE 1 STRIP TO CHECK GLUCOSE ONCE DAILY 100 Strip 3 4 Active Pantoprazole Sodium 40 MG Oral Tablet Delayed Release (Protonix)Indicati ons:Gastroesophage al reflux disease without esophagitis TAKE 1 TABLET BY MOUTH DAILY 90 Tablet 3 4 Active Rosuvastatin Calcium 20 MG Oral Tablet (Crestor)Indicatio ns:Dyslipidemia, goal LDL below 100 TAKE 1 TABLET BY MOUTH DAILY 90 Tablet 3 4 Active Metoprolol Succinate ER 25 MG Oral Tablet Extended Release 24 Hour (toPROL XL)Indications:Old myocardial infarct,HTN, goal below 140/90 TAKE 1 TABLET BY MOUTH ONCE DAILY 90 Tablet 3 4 Active Warfarin Sodium 2.5 MG Oral Tablet (Coumadin)Indicati ons:PAF (paroxysmal atrial fibrillation) ([facility]) TAKE 2 TABLETS BY MOUTH ON SUNDAY AND 1 TABLET ON OTHER DAYS OF THE WEEK OR DIRECTED BY COAG CLINIC 104 Tablet 2 4 Active metFORMIN HCl 1000 MG Oral Tablet (Glucophage)Indica tions:High blood sugar,Type 2 diabetes mellitus with hemoglobin A1c goal of less than 7.0% ([facility]) TAKE 1 TABLET BY MOUTH WITH BREAKFAST AND DINNER 180 Tablet 2 4 Active Losartan Potassium 50 MG Oral Tablet (Cozaar)Indication s:HTN, goal below 140/90,ASCVD (arteriosclerotic cardiovascular disease) TAKE 1 TABLET BY MOUTH TWICE DAILY 180 Tablet 3 4 Active Additional Information Patient taking differently: QHS, Reported on 11/29/2023 amLODIPine Besylate 2.5 MG Oral Tablet (Norvasc)Indicatio ns:HTN, goal below 140/90 TAKE 1 TABLET BY MOUTH DAILY 90 Tablet 3 4 Active DULoxetine HCl 60 MG Oral Capsule Delayed Release Particles (Cymbalta) TAKE 1 CAPSULE BY MOUTH AT NIGHT 90 Capsule 3 4 Active Zoster Vac Recomb Adjuvanted 50 MCG/0.5ML Intramuscular Suspension Reconstituted (Shingrix)Indicati ons:Need for vaccination for zoster Inject 0.5 mL into a large muscle now and repeat dose in 60 to 180 days 1 Each 4 Active Zoster Vac Recomb Adjuvanted 50 MCG/0.5ML Intramuscular Suspension Reconstituted (Shingrix)Indicati ons:Need for shingles vaccine Inject 0.5 mL into a large muscle now and repeat dose in 60 to 180 days 1 Each 1 2 024 Discontinued Fluorouracil 5 % External Cream (Efudex) Apply topically to affected area 2 times a day. apply to affected area scalp, ears, temples, nose as directed 40 g 3 024 Discontinued(Sc dication List Clean Up) documented as of this encounter (statuses as of 02/26/2024) Active Problems Problem Noted Date Diagnosed Date [...] as of this encounter (statuses as of 02/26/2024) Resolved Problems Problem Noted Date Diagnosed Date Resolved Date Sinus pause 07/26/2018 10/16/2018 History of malignant neoplasm of skin 05/02/2018 04/08/2019 History of migraine 05/02/2018 04/08/20 19 Cryptogenic stroke 01/21/2018 9 Anticoagulated on warfarin 01/21/2018 0 08/05/2021 Prediabetes 08/28/2017 06/30/2021 Overview: Per Prediabetes protocol #1 RLL 1.4 cm nodule 05/04/2011 12/01/2017 Overview: 08/2009 CT -- [id number] 11/2012 CT -- 11x8mm, f/u in 18 [...] surveillance.- tubular adenoma Migraine without aura 05/15/20052017 group home current use of ant icoagulant therapy 07/08/2003 [...] as of this encounter (statuses as of 02/26/2024) Immunizations Name Administration Dates Next Due COVID-19 mRNA, LNP-s, No Pre serve, 2-Dose Series (Pfizer) 04/13/2021,09/11/2020,08/21/2020 COVID-19, LNP-s, No Preserve , Cholo-sucrose, [...] older)(Boostrix) 03/28/2016 Varicella Zoster Vaccine (Adult) 05/04/2011 Zoster Vaccine Recombinant (Shingrix) 02/26/2024 documented as of this encounter Social History [...] Sign Reading Time Taken Comments Blood Pressure 124/66 02/26/2024 3:39 PM EDT Pulse 77 02/26/2024 3:39 PM EDT Temperature 36.3 C (97.4 F) 02/26/2024 3:39 PM ED T Respiratory Rate 16 02/26/2024 3:39 PM EDT Oxygen Saturation 97% 02/26/2024 3:39 PM EDT Inhaled Oxygen Concentration - - Weight 97 kg (213 lb 12.8 oz) 02/26/2024 3:39 PM EDT Height - - Body Mass Index 30.68 08/15/2023 3:02 PM EST documented in this [...] No 01/21/2018 documented as of this encounter Patient Instructions * Patient Instructions* Sveta Lopez MED ASSIST - 02/26/2024 3:45 PM EDT ~~PATIENT INSTRUCTIONS FOR SHINGRIX VACCINE~~ Possible side effects of Shingrix vaccine, (shingles), are usually mild and can include: 1. Soreness or redness at injection site 2. Low grade fever 3. Body aches You may use a fever / pain reducing medication as needed for these symptoms. LET YOUR DOCTOR KNOW IMMEDIATELY IF YOU HAVE DIFFICULTY BREATHING OR SWALLOWING, EXPERIENCE ITCHINGOF FEET OR HANDS, HAVE SWELLING OF EYES, FACE OR INSIDE OF NOSE. documented in this encounter Progress Notes * Marbella Rubio PA-C - 02/26/2024 3:47 PM EDT SUBJECTIVE: Arnulfo Morfin is a 83 year old male. Chief Complaint Patient presents with Hospital Follow-Up Patient discharged from [facility] rehab on 02/11. [facility] has been coming to his home since then. Patient reports he is still working on getting balance back and has a dull ache on right side of groin. Immunizations Shingrix Hospital Follow-Up Recent Admission: Patient was recently admitted to [facility]. The date of discharge was 02/01/24. Discharge report receivedand reviewed. HPI: Pt presented to the ER on 01/25 with progressive bruising of right thigh. Pt is chronically on Coumadin due to hx of PAF, PE, recurrent CVA. Was taking Cipro the week prior to the hematoma forming for a UTI. Pt with hx of recurrent UTIs due to chronic urinary retention which requires self-cathing. INR was over 5 on initial presentation and required Coumadin reversal. Pt with acute anemia due to hematoma formation and blood loss. No transfusion was required. Hgb stabilized and Coumadin was restarted prior to discharge. Pt then went to [facility] for rehab from 01/31-02/11. Stay there was relatively unremarkable. He is now back at home with [facility]. Patient Active Problem List Diagnosis Anticoagulation management [...] degree AV block PAF (paroxysmal atrial fibrillation) ([facility]) Pancreatic cyst HTN, goal below 140/90 Type 2 diabetes mellitus with hemoglobin A1c goal of less than 7.0% ([facility]) Restless legs syndrome (RLS) Myelopathy ([facility]) Ascending aorta enlargement ([facility]) Type 2 diabetes mellitus with diabetic polyneuropathy ([facility]) Current Outpatient Medications Medication Sig Dispense Refill [...] CPAP 10 cm every night at bedtime. Innometrix Incio Flex System w/Device Kit Use as directed. Use to test blood glucose once daily. DX: E11.9 1 Kit 0 Iron 325 (65 Fe) MG Oral Tablet Take 1 Tablet by mouth in the morning. LORazepam 1 MG Oral Tablet (Ativan) TAKE 1 TABLET BY MOUTH NEEDED BEFORE BEDTIME FOR SLEEP 90 Tablet 0 Tamsulosin HCl 0.4 MG Oral Capsule (Flomax) TAKE 1 CAPSULE BY MOUTH DAILY 90 Capsule 3 Calcipotriene 0.005 % External Cream (Calcitrene) Apply topically to affected area 2 times a day. Apply to scalp, ears, temples and nose as directed (mix with 5% 5-fluorouracil cream) 60 g 0 rOPINIRole HCl 0.25 MG Oral Tablet (Requip) TAKE 1 TABLET BY MOUTH AT BEDTIME WITH FOOD 90 Tablet 3 Vitamin B-12 1000 MCG Oral Tablet (Cyanocobalamin) Take 1 Tablet by mouth in the morning. [employer] Delica Plus [id number] USE TO CHECK GLUCOSE ONCE DAILY 100 Each 3 Innometrix Incio In Vitro Strip (Glucose Blood) USE 1 [...] every night at bedtime.) 180 Tablet 3 amLODIPine Besylate 2.5 MG Oral Tablet (Norvasc) TAKE 1 TABLET BY MOUTH DAILY 90 Tablet 3 DULoxetine HCl 60 MG Oral Capsule Delayed Release Particles (Cymbalta) TAKE 1 CAPSULE BY MOUTH AT NIGHT 90 Capsule 3 Zoster Vac Recomb Adjuvanted 50 MCG/0.5ML Intramuscular Suspension Reconstituted (Shingrix) Inject 0.5 mL into a large muscle now and repeat dose in 60 to 180 days 1 Each 0 Nitroglycerin 0.4 MG Sublingual Tablet Sublingual (Nitrostat) Place 1 Tablet under the tongue every5 minutes as needed for Pain, Chest. (Patient not taking: Reported on 02/26/2024) No current facility-administered medications for this visit. Current and discharge medications have been reconciled. Review of patient's allergies indicates: Allergen Reactions Deandre Inhibitors Cough Omeprazole bad side effects Darvocet [Propoxyphene N-Acetaminophen] Nausea/vomiting Neurontin [Gabapentin] Nausea/vomiting OBJECTIVE: BP 124/66 | Pulse 77 | Temp 36.3 C (97.4 F) (Tympanic) | Resp 16 | Wt 97 kg (213 lb 12.8 oz) | SpO2 97% | BMI 30.68 kg/m | BSA 2.19 m REVIEW OF SYSTEMS: Review of Systems Constitutional: Negative for chills and fever. Respiratory: Negative for shortness of breath. Cardiovascular: Negative for chest pain. Gastrointestinal: Negative for constipation and diarrhea. Genitourinary: Negative for hematuria. Neurological: Negative for dizziness and headaches. PHYSICAL EXAM: BP 124/66 | Pulse 77 | Temp 36.3 C (97.4 F) (Tympanic) | Resp 16 | Wt 97 kg (213 lb 12.8 oz) | SpO2 97% | BMI 30.68 kg/m | BSA 2.19 m Physical Exam Constitutional: General: He is not in acute distress. Appearance: He is not diaphoretic. HENT: Right Ear: Tympanic membrane, ear canal and external ear normal. Left Ear: Tympanic membrane, ear canal and external ear normal. Mouth/Throat: Mouth: Mucous membranes are moist. Pharynx: Oropharynx is clear. Cardiovascular: Rate and Rhythm: Normal rate and regular rhythm. Pulmonary: Effort: Pulmonary effort is normal. Breath sounds: Normal breath sounds. Abdominal: General: Bowel sounds are normal. Palpations: Abdomen is soft. Musculoskeletal: Cervical back: Normal range of motion and neck supple. Skin: General: Skin is warm and dry. Neurological: General: No focal deficit present. Mental Status: He is alert. Mental status is at baseline. 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) Type 2 diabetes mellitus with hemoglobin A1c goal of less than 7.0% ([facility]) - BASIC METABOLIC PANEL; Future; Expected date: 02/26/2024 HTN, goal below 140/90 Dyslipidemia, goal LDL below 70 Need for vaccination for zoster - ZOSTER VACCINE RECOMB, 2 DOSE, IM (SHINGRIX) - ZOSTER VACCINE RECOMB, 2 DOSE, IM (SHINGRIX); Future; Expected date: 04/27/2024 - Zoster Vac Recomb Adjuvanted 50 MCG/0.5ML Intramuscular Suspension Reconstituted (Shingrix); Inject 0.5 mL into a large muscle now and repeat dose in 60 to 180 days Follow Up: Return in about 2 months (around 04/27/2024) for Return with Physician. | For: Return with Physician | Check-out note: F/up with Dr. Mora in the fall for routine. PLAN: Continue present medication(s): Immunization(s) ordered: Shingrix vac given today Schedule labs: BMP and CBC today. Follow up in 2 month(s). I spent a total of Greater than 55 mins (exact time 50 mins) minutes on the date of service in preparation, delivery, and documentation of the care provided to Arnulfo Morfin excluding any time spent inperformance of separately billed services. Marbella Rubio PA-C * Sveta Lopez, MED ASSIST - 02/26/2024 3:43 PM EDT Does the patient have active shingles? No If, yes, patient must wait to receive vaccine till after rash is gone. Does the patient have an illness today with a fever more than 101?F? No Has the patient ever had a serious allergic reaction after receiving a vaccination? No Has the patient had a blood test showing they are not immune to Chicken Pox (rare)? No If yes, should get Chicken pox vaccine instead of shingrix. Verified patient has prescription/drug coverage. Patient has been informed that [employer] copays are close to $0. In most cases copays will be around $10. The maximum co-pay patients may get could as high as $200. yes Shingrix Vaccine Information Sheet has been provided. JENNIFER Mcghee 02/26/2024 3:43 PM IMMUNIZATION ADMINISTRATION DOCUMENTATION Time Out Procedure Performed: Yes Patient Identified (Ask Name/Date of ): Yes Patient allergic to latex?No VFC Stock? No Immunization(s) verified: Yes, Immunization Name: Shingrix, VIS Sheet(s) given: Yes Verified Side and Site: Yes Verified Shot(s) with Parent(s)/Patient: Yes Shingrix was administered per clinic protocol. Patient received the Shingrix VIS (Vaccine Information Sheet). JENNIFER Mcghee, 02/26/2024, 3:43 PM documented in this encounter Nursing Notes * Sveta Lopez MED ASSIST - 02/26/2024 3:41 PM EDT Chief Complaint Patient presents with Hospital Follow-Up Patient discharged from [facility] rehab on 02/11. [facility] has been coming to his home since then. Patient reports he is still working on getting balance back and has a dull ache on right side of groin. documented in this encounter Plan of Treatment Upcoming Encounters Date Type Department Care Team (Late st Contact Info) Description 03/03/2024 3:30 PM EDT Imaging Radiology [facility] [facility] [address] [place] [address] 03/03/2024 5:40 PM EDT Anticoagulation Pharmacy, [facility] [place] [address] [place] [address] Pharmacist1, [facility] [address] [facility] [place] [address] 03/04/2024 9:30 AM EDT Office Visit Sleep Disorders Ctr [facility] [address] [place] [phone] Elena Cuevas CRNP [address] [place] [address] 05/27/2024 8:15 AM EST Office Visit [facility] [address] [address] Jewell Pastor MD [address] [facility] [place] [address] 06/23/2024 2:30 PM EST Office Visit Cardiology, [facility] [address] [facility] [place] [address] Juancho Nelson DO [address] [place] [address] 10/28/2024 2:40 PM EDT Office Visit General Internal Medicine [facility] [address] [facility] [place] [address] Anurag Mora MD [address] [facility] [place] [address] 01/15/2025 1:30 PM EDT Office Visit Neurology [facility] [address] [facility] [place] [address] Evelyn Mcgill PA-C [address] [place] [address] Pending Results Name Type Priority Associated Diagnoses Date /Time CBC Lab Routine Acute blood loss anemia 02/26/2024 4:33 PM EDT BASIC METABOLIC PANEL Lab Routine Type 2 diabetes mellitus with hemoglobin A1c goal of less than 7.0% (HCC) 02/26/2024 4:33 PM EDT Scheduled Orders Name Type Priority Associated Diagnoses Orde r Schedule CBC Lab Routine Acute blood loss anemia Expected: 02/26/2024 (Approximate), Expires: 02/25/2025 BASIC METABOLIC PANEL Lab Routine Type 2 diabetes mellitus with hemoglobin A1c goal of less than 7.0% (HCC) Expected: 02/26/2024 (Approximate), Expires: 02/25/2025 Scheduled Procedures Name Priority Associated Diagnoses Date/Ti me COLONOSCOPY FLEXIBLE PROXIMA L DIAGNOSTIC Recall History of colonic polyps Health Maintenance Due Date Last Done Comments Adult Wellness Visit 05/26/2023 05/26/2022, 05/25/20 21 Depression Screening 05/26/2023 05/26/2022 Albumin/Creatinine Ratio 07/27/2023 07/27/2022, 0208/2021 COVID-19 Vaccine ( season) 2023 04/30/2023, 03/29/2022, 10/20/2021, Additional history exists HbA1c 02/15/2024 08/17/2023, 01/14, 07/27/2022, Additional history exists Influenza Vaccine (FLU shot) (#1) 2024 04/11/2023, 03/23/2022, 03/15/2021, Additional history exists Zoster Vaccines (3 of 3) 04/22/2024 02/26/2024, 04/16 Diabetic Foot Exam 08/15/2024 08/15/2023, 0 07/26/2022, [...] this encounter Medical Devices Implanted Type Area Mold Cutting Machine Operator Device Identifier Shelf Expiration Date Model / Serial / Lot Lens Intraoc 18.0 - [id number] - [id number] Implanted:Qty: 1 on 12/11/2017 by Bryan Alfaro MD at OR [facility] Right: Eye [employer] 07/15/2021 [id number] / [id number] / [id number] Clip Quick 2.8mm 230cm - [id number] Implanted:Qty: 1 on 08/11/2020 by Anaid Powell DO at ENDOSCOPY [facility] [employer] 09/15/2022 HX-202UR.A / / [id number] Clip Quick 2.8mm 230cm - [id number] Implanted:Qty: 1 on 08/11/2020 by Anaid Powell DO at ENDOSCOPY [facility] [employer] 09/15/2022 HX-202UR.A / / [id number] Clip Quick 2.8mm 230cm - [id number] Implanted:Qty: 1 on 08/11/2020 by Anaid Powell DO at ENDOSCOPY [facility] [employer] 09/15/2022 HX-202UR.A / / [id number] Clip Quick 2.8mm 230cm - [id number] Implanted:Qty: 1 on 08/11/2020 by Anaid Powell DO at ENDOSCOPY [facility] [employer] 09/15/2022 [id number]-202UR.A / / [id number] documented as of this encounter Visit Diagnoses Diagnosis Hospital discharge follow-up- Primary Other follow-up examination Retroperitoneal hematoma Hemorrhage, unspecified Acute blood loss anemia Acute posthemorrhagic anemia 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 Urinary retention Retention of urine, unspecified History of CVA (cerebrovascular accident) Transient ischemic attack (TIA), and cerebral infarction without residual deficits PAF (paroxysmal atrial fibrillation) (HCC) Atrial fibrillation Type 2 diabetes mellitus with hemoglobin A1c goal of less than 7.0% (HCC) HTN, goal below 140/90 Unspecified essential hypertension Dyslipidemia, goal LDL below 70 Other and unspecified hyperlipidemia Need for vaccination for zoster Need for prophylactic vaccination and inoculation against other viral diseases documented in this encounter Advance Directives * Full Code (Latest Code Status on File) Date Activated Date Inactivated Comments 12/11/2017 12:38 PM 12/11/2017 7:16 PM This order reflects the patients wishes and were consensually agreed upon. Care Teams Cook Camp Relationship Specialty Start Date End Date Anurag Mora MD [address] [place] [address] PCP - General Internal Medicine 05/06/21 documented as of this encounter"
--- OUTSIDE RECORDS SUMMARY | 2024-02-28 04:39 | External Medical Summary | Summary of Care ---
Author Name Unknown Organization [facility] Address [address] [place] [address] Phone [phone] Care Team Providers Care Nurse Discharge Name Role Phone Anurag Mora MD Primary Care Provider + Reason for Visit * Reason Comments Outpatient Testing Encounter Details Date Type Department Care Team (Late st Contact Info) Description 02/21/2024 2:20 PM EDT Laboratory Laboratory Scenery [facility] [address] [place] [phone] [place], Lab Scenery [address] [place] [address] Allergies Active Allergy Reactions Criticality Noted Date Comments Deandre Inhibitors Cough Medium 05/25/2008 Propoxyphene N-Acetaminophen Nausea/vomiting Low 04/26/2010 Gabapentin Nausea/vomiting Low 04/10/2011 Omeprazole 12/05/2002 bad side effects documented as of this encounter (statuses as of 02/21/2024) Medications Medication Sig Dispensed Refills Start Date End Date Status FOLIC ACID TABS 1 MG ORIndications:Acute [place], anterior wall (HCC) 1 TABLET DAILY 30 [...] 10 cm every night at bedtime. Active [email or web address] Verio Flex System w/Device KitIndications:High blood sugar,Type 2 diabetes mellitus with hemoglobin A1c goal of less than 7.0% ([facility]) Use as directed. Use to test [...] in the morning. Active OneTouch Delica Plus [id number] :Type 2 diabetes mellitus with hemoglobin A1c goal of less than 7.0% ([facility]),High blood sugar USE TO CHECK GLUCOSE ONCE DAILY 100 Each 3 08/22/2023 Active OneTouch Verio In Vitro Strip (Glucose Blood)Indications:Ty pe 2 diabetes mellitus with hemoglobin A1c goal of less than 7.0% ([facility]),High blood sugar USE 1 STRIP TO [...] Oral Tablet (Coumadin)Indication s:PAF (paroxysmal atrial fibrillation) ([facility]) TAKE 2 TABLETS BY MOUTH ON SUNDAY AND 1 TABLET ON OTHER DAYS OF THE WEEK OR DIRECTED BY [facility] CLINIC 104 Tablet 2 11/22/2023 Active metFORMIN HCl 1000 MG Oral Tablet (Glucophage)Indicati ons:High blood sugar,Type 2 diabetes mellitus with hemoglobin A1c goal of less than 7.0% ([facility]) TAKE 1 TABLET BY MOUTH WITH [...] as of this encounter (statuses as of 02/21/2024) Active Problems Problem Noted Date Diagnosed Date [...] as of this encounter (statuses as of 02/21/2024) Resolved Problems Problem Noted Date Diagnosed Date Resolved Date Sinus pause 07/26/2018 10/16/2018 History of malignant neoplasm of skin 05/02/2018 04/08/2019 History of migraine 05/02/2018 04/08/20 19 Cryptogenic stroke 01/21/2018 9 Anticoagulated on warfarin 01/21/2018 0 08/05/2021 Prediabetes 08/28/2017 06/30/2021 Overview: Per Prediabetes protocol #1 RLL 1.4 cm nodule 05/04/2011 12/01/2017 Overview: 08/2009 CT -- [id number] 11/2012 CT -- 11x8mm, f/u in 18 months OSTEOARTHRITIS HIP- RIGHT 02/03/2011 ADVANCE DIRECTIVE INFORMATION 11/30/2009 08/05/2021 Overview: No, Advance Directive brochure given to patient at prior appointment. 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 current use of ant icoagulant therapy 07/08/2003 [...] as of this encounter (statuses as of 02/21/2024) Immunizations Name Administration Dates Next Due COVID-19 mRNA, LNP-s, No Pre serve, 2-Dose Series ([employer]) 04/13/2021,09/11/2020,08/21/2020 COVID-19, LNP-s, No Preserve , Cholo-sucrose, Ages 12+ (Pfizer) 10/20/2021 Covid-19, Mrna, Lnp-s, Pf, B ivalent, 30 Mcg, IM, 12 yrs and above ([employer]) 03/29/2022 H1N1 2009 Influenza, IM 07/02/2009 Pneumococcal [...] No 01/21/2018 documented as of this encounter Plan of Treatment Upcoming Encounters Date Type Department Care Team (Late st Contact Info) Description 02/25/2024 5:40 PM EDT Antico[facility] Pharm[place], [facility] [place] [address] [place] [address] Pharmacist1, [facility] [address] [place] [address] 02/26/2024 3:20 PM EDT Office Visit General Internal Medicine [facility] [place] [address] [place] [address] Marbella Rubio PA-C [address] [place] [address] [address] 03/03/2024 3:30 PM EDT Imaging Radiology [address], [address] [place] [address] 03/04/2024 9:30 AM EDT Office Visit Sleep Disorders Ctr [facility] [address] [place] [phone] Elena Cuevas CRNP [address] [place] [address] 05/27/2024 8:15 AM EST Office Visit MOHS Surgery [facility] [address] [place] [address] Jewell Pastor MD [address] [place] [address] 06/23/2024 2:30 PM EST Office Visit Cardiology, [facility] [address] [facility] [place] [address] Juancho Nelson, [address] [place] [address] 01/15/2025 1:30 PM EDT Office Visit Neurology [facility] [address] [place] [address] Evelyn Mcgill PA-C [address] [place] [address] Scheduled Procedures Name Priority Associated Diagnoses Date/Ti me COLONOSCOPY FLEXIBLE PROXIMA L DIAGNOSTIC Recall History of colonic polyps Health Maintenance Due Date Last Done Comments Zoster Vaccines (2 of 3) 06/29/2011 05/04/2011 Adult Wellness Visit 05/26/2023 05/26/2022, 05/25/20 21 [...] this encounter Medical Devices Implanted Type Area Director Financial Analysis Device Identifier Shelf Expiration Date Model / Serial / Lot Lens Intraoc 18.0 - [id number] - [id number] Implanted:Qty: 1 on 12/11/2017 by Bryan Alfaro MD at OR [facility] Right: Eye [employer] 07/15/2021 [id number] / [id number] / [id number] Clip Quick 2.8mm 230cm - [id number] Implanted:Qty: 1 on 08/11/2020 by Anaid [place] DO at ENDOSCOPY [facility] [employer] 09/15/2022 HX-202UR.A / / [id number] Clip Quick 2.8mm 230cm - [id number] Implanted:Qty: 1 on 08/11/2020 by Anaid [place], DO at ENDOSCOPY [facility] [employer] 09/15/2022 HX-UR.A / / [id number] Clip Quick 2.8mm 230cm - [id number] Implanted:Qty: 1 on 08/11/2020 by Anaid [place], DO at ENDOSCOPY [facility] [employer] 09/15/2022 HX-UR.A / / [id number] Clip Quick 2.8mm 230cm - [id number] Implanted:Qty: 1 on 08/11/2020 by Anaid [place], at ENDOSCOPY [facility] [employer] 09/15/2022 HX-UR.A / / [id number] documented as of this encounter Advance Directives * Full Code (Latest Code Status on File) Date Activated Date Inactivated Comments 12/11/2017 12:38 PM 12/11/2017 7:16 PM This order reflects the patients wishes and were consensually agreed upon. Care Teams Nurse Discharge Relationship Specialty Start Date End Date Anurag Mora MD [address] [facility] [address] PCP - General Internal Medicine 05/06/21 documented as of this encounter
--- OUTSIDE RECORDS SUMMARY | 2024-02-28 04:39 | External Medical Summary ---
Author Name Unknown Address Unknown Organization [id number]:LABORATORY [facility] [place] - [facility] [address] [facility] [address] Laboratory Report Ordering Provider Test Date Status RENATA MORA 02/26/2024 16:33:26 Final Observation Date Value Abnormality Reference (Units ) Status WBC, Total 02/26/2024 16:33:26 5.97 4.00-10.80 (K/uL) Final RBC 02/26/2024 16:33:26 4.22 4.50-5.25 (M/uL) Final Hemoglobin 02/26/2024 16:33:26 13.4 Below low normal 14.0-16.8 (g/dL) Final HCT 02/26/2024 16:33:26 41.8 40.0-48.4 (%) Final MCV 02/26/2024 16:33:26 99.1 82.0-99.5 (fL) Final MCH 02/26/2024 16:33:26 31.8 27.0-34.0 (pg) Final MCHC 02/26/2024 16:33:26 32.1 32.0-36.0 (g/dL) Final RDW 02/26/2024 16:33:26 14.7 11.5-15.5 (%) Final Platelets 02/26/2024 16:33:26 210 140-400 (K/uL) Final MPV 02/26/2024 16:33:26 10.6 6.6-11.1 (fL) Final Nucleated erythrocytes/100 leukocytes [Ratio] in Blood by Automated count 02/26/2024 16:33:26 0 <=0 (/100 WBCs) Final Performing Location LABORATORY [facility] [place] - [address] [facility] [address]
--- OUTSIDE RECORDS SUMMARY | 2024-02-28 04:39 | External Medical Summary ---
Author Name Unknown Address Unknown Organization [id number]:LABORATORY [facility] [place] - [address] [facility] [address] Laboratory Report Ordering Provider Test Date Status RENATA MORA 02/26/2024 16:33:26 Final Observation Date Value Abnormality Reference (Units ) Status BUN 02/26/2024 16:33:26 15 6-20 (mg/dL) Final Creatinine 02/26/2024 16:33:26 0.9 0.6-1.2 (mg/dL) Final Glomerular filtration rate/1.73 sq M.predicted [Volume Rate/Area] in Serum, Plasma or Blood by Creatinine-based formula (CKD-EPI) 02/26/2024 16:33:26 86 >=60 (mL/min) Final eGFR is calculated based on the CKD-EPI 2020 equation. Sodium 02/26/2024 16:33:26 139 135-146 (m mol/L) Final Potassium 02/26/2024 16:33:26 4.8 3.5-5.1 (m mol/L) Final Cl 02/26/2024 16:33:26 102 98-107 (mm ol/L) Final CO2 02/26/2024 16:33:26 29 22-32 (mmo l/L) Final Anion gap 02/26/2024 16:33:26 8 7-15 (mmol /L) Final Glucose 02/26/2024 16:33:26 105 70-120 (mg /dL) Final Calcium 02/26/2024 16:33:26 9.3 8.4-10.2 ( mg/dL) Final Performing Location LABORATORY [facility] - [address] [place] [address]
--- OUTSIDE RECORDS SUMMARY | 2024-02-28 04:39 | External Medical Summary | Summary of Care ---
Author Name Unknown Organization [facility] Address [address] [place] [address] Phone [phone] Care Team Providers Care Planetarium Sky Show Technician Name Role Phone Anurag Mora MD Primary Care Provider + Reason for Visit * Reason Comments Dosage Adjustment Via Phone (anticoag Cl inic) Encounter Details Date Type Department Care Team (Latest Contact Info) Description 02/18/2024 5:30 PM EDT Anticoagulation Pharmacy, [facility] [address] [facility] [place] [address] Pharmacist1, [facility] [address] [facility] [address] Anticoagulation management encounter*; H/O ischemic multifocal posterior circulation stroke; History of pulmonary embolism Allergies Active Allergy Reactions Criticality Noted Date Comments Deandre Inhibitors Cough Medium 05/25/2008 Propoxyphene N-Acetaminophen Nausea/vomiting Low 04/26/2010 Gabapentin Nausea/vomiting Low 04/10/2011 Omeprazole 12/05/2002 bad side effects documented as of this encounter (statuses as of 02/18/2024) Medications Medication Sig Dispensed Refills Start Date End Date Status FOLIC ACID TABS [address]:Acute CT, anterior wall (HCC) 1 TABLET DAILY 30 [...] hemoglobin A1c goal of less than 7.0% ([facility]) Use as directed. Use to test blood [...] in the morning. Active OneTouch Delica Plus [id number] :Type 2 diabetes mellitus with hemoglobin A1c goal of less than 7.0% ([facility]),High blood sugar USE TO CHECK GLUCOSE ONCE DAILY 100 Each 3 08/22/2023 Active OneTouch Verio In Vitro Strip (Glucose Blood)Indications:Ty pe 2 diabetes mellitus with hemoglobin A1c goal of less than 7.0% ([facility]),High blood sugar USE 1 STRIP TO CHECK [...] Oral Tablet (Coumadin)Indication s:PAF (paroxysmal atrial fibrillation) ([facility]) TAKE 2 TABLETS BY MOUTH ON SUNDAY AND 1 TABLET ON OTHER DAYS OF THE WEEK OR DIRECTED BY [facility]AG CLINIC 104 Tablet 2 11/22/2023 Active metFORMIN HCl 1000 MG Oral Tablet (Glucophage)Indicati ons:High blood sugar,Type 2 diabetes mellitus with hemoglobin A1c goal of less than 7.0% ([facility]) TAKE 1 TABLET BY MOUTH WITH BREAKFAST [...] as of this encounter (statuses as of 02/18/2024) Active Problems Problem Noted Date Diagnosed Date [...] as of this encounter (statuses as of 02/18/2024) Resolved Problems Problem Noted Date Diagnosed Date Resolved Date Sinus pause 07/26/2018 10/16/2018 History of malignant neoplasm of skin 05/02/2018 04/08/2019 History of migraine 05/02/2018 04/08/20 Cryptogenic stroke 01/21/2018 9 Anticoagulated on warfarin 01/21/2018 0 08/05/2021 Prediabetes 08/28/2017 06/30/2021 Overview: Per Prediabetes protocol #1 RLL 1.4 cm nodule 05/04/2011 12/01/2017 Overview: 08/2009 CT -- [id number] 11/2012 CT -- 11x8mm, f/u in 18 [...] surveillance.- tubular adenoma Migraine without aura 05/15/20052017 [facility] current use of ant icoagulant therapy 07/08/2003 [...] as of this encounter (statuses as of 02/18/2024) Immunizations Name Administration Dates Next Due COVID-19 mRNA, LNP-s, No Pre serve, 2-Dose Series ([employer]) 04/13/2021,09/11/2020,08/21/2020 COVID-19, LNP-s, No Preserve , Cholo-sucrose, Ages 12+ (Pfizer) 10/20/2021 Covid-19, Mrna, Lnp-s, Pf, B ivalent, 30 Mcg, IM, 12 yrs and above ([employer]) 03/29/2022 H1N1 2009 Influenza, IM 07/02/2009 Pneumococcal Conjugate Vacc, 13 Valent (Prevnar) 10/06/2015 Pneumococcal Polysaccharide PPV23 (Pneumovax) 06/08/2008,08/06/1998 Season Influenza, Quad, PF, Adjuvanted, 65+ Yrs, IM (FLUAD) 03/19/2020 Seasonal Influenza, PF, 6 M & above, IM , (FluLaval or Fluzone) 04/17/2018 Seasonal Influenza, Quadriva lent Hd (Fluzone Hd) 04/11/2023,03/23/2022 Seasonal Influenza, Quadriva lent Hd, 65+ Yrs 03/15/2021 Seasonal Influenza, Quadriva lent, No Preserve, IM 03/30/2017,03/28/2016 Seasonal Influenza, Split, I IV3, With Preserve, Inj 04/01/2015,03/18/2014,03/29/2013,03/16,05/04/2011,05/05/2010,05/10/20 09,05/25/2008,05/09/2007,05/14/2006,1 03/18/2015 Seasonal Influenza, Trivalen t, Adjuvanted, 65+ yrs 04/08/2019 TD - Tetanus/Diptheria (ADULT) 02/04/1996 TD, Preservative Free 05/25/2008 TDAP (age 10 [...] as of this encounter Progress Notes * Alina Casey PHARM Tech - 02/18/2024 10:17 AM EDT Caller's name: [facility] call back number(OFFICE NUMBER FOR ): [phone] Reason for call: nursing facility, [facility] , calling with INR results. Result is 2.5 which was drawnon 02/18/24. Patient is not being discharged. Thank you, Alina Casey Billiard Table Repairer [facility] 02/18/2024,10:17 AM documented in this encounter Miscellaneous Notes * Addendum Note - Dunia Barrow RPh - 02/18/2024 1:52 PM EDTAddended by: DUNIA ANTUNEZ V on: 02/18/2024 01:52 PM Modules accepted: Level of Service documented in this encounter Plan of Treatment Upcoming Encounters Date Type Department Care Team (Late st Contact Info) Description 02/19/2024 2:40 PM EDT Office Visit General Internal Medicine [facility] [address] [place] [address] Anurag Mora MD [address] [place] [address] 03/04/2024 9:30 AM EDT Office Visit Sleep Disorders Ctr [facility] [address] [place] [phone] Elena Cuevas CRNP [address] [place] [address] 05/27/2024 8:15 AM EST Office Visit [facility] [address] Jewell Pastor MD [address] [place] [address] [place] [address] 06/23/2024 2:30 PM EST Office Visit Cardiology, [facility] [address] [place] [address] Juancho Nelson DO [address] [place] [address] 01/15/2025 1:30 PM EDT Office Visit Neurology [facility] [address] [place] [address] Evelyn Mcgill PA-C [address] [place] [address] Scheduled Procedures Name Priority Associated Diagnoses Date/Ti me COLONOSCOPY FLEXIBLE PROXIMA L DIAGNOSTIC Recall History of colonic polyps Health Maintenance Due Date Last Done Comments Zoster Vaccines (2 of 3) 06/29/2011 05/04/2011 Depression Screening 05/26/2023 05/26/2022 Albumin/Creatinine Ratio 07/27/2023 07/27/2022, 0208/2021 COVID-19 Vaccine (2022- season) 2023 04/30/2023, 03/29/2022, 10/20/2021, Additional history [...] encounter Medical Devices Implanted Type Area Director Of Enterprise Applications Device Identifier Shelf Expiration Date Model / Serial / Lot Lens Intraoc 18.0 - [id number] - [id number] Implanted:Qty: 1 on 12/11/2017 by Bryan Alfaro MD at OR [facility] Right: Eye [employer] 07/15/2021 [id number] / [id number] / [id number] Clip Quick 2.8mm 230cm - [id number] Implanted:Qty: 1 on 08/11/2020 by Anaid [place], DO at ENDOSCOPY [facility] [employer] [facility] 09/15/2022 HX-202UR.A / / [id number] Clip Quick 2.8mm 230cm - [id number] Implanted:Qty: 1 on 08/11/2020 by Anaid [place], DO at ENDOSCOPY [facility] [employer] [facility] 09/15/2022 HX-202UR.A / / [id number] Clip Quick 2.8mm 230cm - [id number] Implanted:Qty: 1 on 08/11/2020 by Anaid [place], DO at ENDOSCOPY [facility] [employer] [facility] 09/15/2022 HX-202UR.A / / [id number] Clip Quick 2.8mm 230cm - [id number] Implanted:Qty: 1 on 08/11/2020 by Anaid [place], DO at ENDOSCOPY [facility] [employer] 09/15/2022 HX-202UR.A / / [id number] documented as of this encounter Procedures Procedure Name Priority Date/Time Associated Diagnosis Comments OUTSIDE LAB-PT/INR Routine 02/18/2024 documented in this encounter Results * OUTSIDE LAB-PT/INR (02/18/2024) INR-OUTSIDE LAB 2.5 History Per Patient LABORATORY documented in this encounter Visit Diagnoses Diagnosis Anticoagulation management encounter- Primary Encounter for therapeutic drug monitoring H/O ischemic multifocal posterior circulation stroke Transient ischemic attack (TIA), and cerebral infarction without residual deficits History of pulmonary embolism Personal history of pulmonary embolism documented in this encounter Advance Directives * Full Code (Latest Code Status on File) Date Activated Date Inactivated Comments 12/11/2017 12:38 PM 12/11/2017 7:16 PM This order reflects the patients wishes and were consensually agreed upon. Care Teams Planetarium Sky Show Technician Relationship Specialty Start Date End Date Anurag Mora MD [address] [place] [address] PCP - General Internal Medicine 05/06/21 documented as of this encounter
--- OUTSIDE RECORDS SUMMARY | 2024-02-28 04:39 | External Medical Summary | Summary of Care ---
Author Name Unknown Organization [facility] Address [address] [place] [address] Phone [phone] Care Team Providers Care Blockmason Name Role Phone Anurag Mora MD Primary Care Provider + Reason for Visit * Reason Comments Dosage Adjustment Via Phone (anticoag Cl inic) Encounter Details Date Type Department Care Team (Latest Contact Info) Description 02/18/2024 5:30 PM EDT Anticoagulation Pharmacy, [facility] 200 [place] [address] Pharmacist1, [facility] 200 [facility] [address] Anticoagulation management encounter*; H/O ischemic multifocal posterior [...] Status FOLIC ACID TABS 1 MG ORIndications:Acute [place], anterior wall (HCC) 1 TABLET DAILY 30 [...] A1c goal of less than 7.0% ([facility]) Use as directed. Use to test blood [...] in the morning. Active OneTouch Delica Plus [id number] :Type 2 diabetes mellitus with hemoglobin A1c goal of less than 7.0% ([facility]),High blood sugar USE TO CHECK GLUCOSE ONCE DAILY 100 Each 3 08/22/2023 Active OneTouch Verio In Vitro Strip (Glucose Blood)Indications:Ty pe 2 diabetes mellitus with hemoglobin A1c goal of less than 7.0% ([facility]),High blood sugar USE 1 STRIP TO CHECK [...] Tablet (Coumadin)Indication s:PAF (paroxysmal atrial fibrillation) ([facility]) TAKE 2 TABLETS BY MOUTH ON SUNDAY AND 1 TABLET ON OTHER DAYS OF THE WEEK OR DIRECTED BY [facility]AG CLINIC 104 Tablet 2 11/22/2023 Active metFORMIN HCl 1000 MG Oral Tablet (Glucophage)Indicati ons:High blood sugar,Type 2 diabetes mellitus with hemoglobin A1c goal of less than 7.0% ([facility]) TAKE 1 TABLET BY MOUTH WITH BREAKFAST [...] nodule 05/04/2011 12/01/2017 Overview: 08/2009 CT -- [id number] 11/2012 CT -- 11x8mm, f/u in 18 [...] surveillance.- tubular adenoma Migraine without aura 05/15/20052017 USP current use of ant icoagulant therapy 07/08/2003 [...] mRNA, LNP-s, No Pre serve, 2-Dose Series (BA Insight) 04/13/2021,09/11/2020,08/21/2020 COVID-19, LNP-s, No Preserve , Cholo-sucrose, Ages 12+ (Pfizer) 10/20/2021 Covid-19, Mrna, Lnp-s, Pf, B ivalent, 30 Mcg, IM, 12 yrs and above (BA Insight) 03/29/2022 H1N1 2009 Influenza, IM 07/02/2009 Pneumococcal [...] as of this encounter Progress Notes * Florian Light [facility] - 02/18/2024 1:16 PM EDT Medication Therapy Disease Management - Anticoagulation Patient: Arnulfo Cortez Navjot | : 1940 Subjective Contacts Type Contact Phone/Fax 02/18/2024 10:16 AM EDT Phone (Incoming) Donnell MORELOS~Carmel (Other) [phone] 02/18/2024 01:17 PM EDT Phone (Outgoing) Arnulfo Morfin (Self) [phone] (H) Spoke to Patient - Continuing this past week's dosing and will f/u in a week. Patient-Reported Symptoms: Patient Findings Negatives: Signs/symptoms of thrombosis, Signs/symptoms of bleeding, Change in health, Change in alcohol use, Change in activity, Upcoming invasive procedure, Missed doses, Extra doses, Change in medications, Change in diet/appetite, Bruising Objective Current Warfarin Dose As of 02/18/2024 Warfarin maintenance plan: 5 mg (2.5 mg x 2) every Shara; 2.5 mg (2.5 mg x 1) all other days INR Result As of 02/18/2024 INR goal: 2.0-3.0 INR used for dosin.5 (02/18/2024) Assessment & Plan Warfarin Plan As of 02/18/2024 Full warfarin instructions: 5 mg every Shara, Sat; 2.5 mg all other days Next INR check: 02/25/2024 Repeat PT/INR in 1 week(s) Weekly dose: continuing last week's dosing. [facility] (FAXED note). Additional Dosing Information: Description (Takes in AM) 1.25mg MWF, 2.5mg all other days - Bactrim DS I spent a total of 10-19 minutes (exact time 12 mins) on the date of service in preparation, delivery, and documentation of the care provided to Arnulfo Morfin excluding any time spent in the performance of separately billed services or time spent by another provider/QHP. Florian Light PharmD (Tina), [facility] PGY1 Mold Yarn Supervisor Medication Therapy Management Clinic 02/18/2024 1:49 PM * Alina Casey agronomy internship - 02/18/2024 10:17 AM EDT Caller's name: Carmel Estefania call back number(OFFICE NUMBER FOR ): [phone] Reason for call: nursing facility, [facility], calling with INR results. Result is 2.5 which was drawnon 02/18/24. Patient is not being discharged. Thank you, Alina Casey Community Action Worker Centralized Clinical Pharmacy Services 02/18/2024,10:17 AM documented in this encounter Miscellaneous Notes * Addendum Note - Dunia Barrow RPh - 02/18/2024 1:52 PM EDTAddended by: DUNIA NATUNEZ V on: 02/18/2024 01:52 PM Modules accepted: Level of Service documented in this encounter Plan of Treatment Upcoming Encounters Date Type Department Care Team (Late st Contact Info) Description 02/19/2024 2:40 PM EDT Office Visit General Internal Medicine [address] [place] [address] Anurag Mora MD [address] [place], [place] [address] [address] 03/04/2024 9:30 AM EDT Office Visit [facility] Disorders [facility]tr [facility] [address] [facility] [place] [address] Elena Cuevas CRNP [address] [facility] [place] [address] 05/27/2024 8:15 AM EST Office Visit MOHS Surgery [facility] [address] [facility] [place] [address] Jewell Pastor MD [address] [place] [address] [place] [address] 06/23/2024 2:30 PM EST Office Visit Cardiology, [facility] [address] [place] [address] Juancho Nelson DO [address] [place] [address] 01/15/2025 1:30 PM EDT Office Visit Neurology [facility] [address] Evelyn Mcgill PA-C [address] [place] [address] Scheduled Procedures Name Priority Associated Diagnoses Date/Ti me COLONOSCOPY FLEXIBLE PROXIMA L DIAGNOSTIC Recall History of colonic polyps Health Maintenance Due Date Last Done Comments Zoster Vaccines (2 of 3) 06/29/2011 05/04/2011 Depression Screening 05/26/2023 05/26/2022 Albumin/Creatinine Ratio 07/27/2023 07/27/2022, 02/08/2021 COVID-19 Vaccine (2022- season) 2023 04/30/2023, 03/29/2022, [...] this encounter Medical Devices Implanted Type Area Superintendent Pressure Device Identifier Shelf Expiration Date Model / Serial / Lot Lens Intraoc 18.0 - [id number] - [id number] Implanted:Qty: 1 on 12/11/2017 by Bryan Alfaro MD at [facility] Right: Eye [employer] 07/15/2021 [id number] / [id number] / [id number] Clip Quick 2.8mm 230cm - [id number] Implanted:Qty: 1 on 08/11/2020 by Anaid Powell DO at [facility] [employer] 09/15/2022 HX-202UR.A / / [id number] Clip Quick 2.8mm 230cm - [id number] Implanted:Qty: 1 on 08/11/2020 by Anaid Powell DO at [facility] [employer] 09/15/2022 HX-202UR.A / / [id number] Clip Quick 2.8mm 230cm - [id number] Implanted:Qty: 1 on 08/11/2020 by Anaid Powell DO at [facility] [employer] 09/15/2022 HX-202UR.A / / [id number] Clip Quick 2.8mm 230cm - [id number] Implanted:Qty: 1 on 08/11/2020 by Anaid Powell DO at [facility] [employer] 09/15/2022 HX-UR.A / / [id number] documented as of this encounter Procedures Procedure [...] and were consensually agreed upon. Care Teams Blockmason Relationship Specialty Start Date End Date Anurag Mora MD [address] [place] [address] PCP - General Internal Medicine 05/06/21 documented as of this encounter"
--- OUTSIDE RECORDS SUMMARY | 2024-02-28 04:39 | External Medical Summary | Summary of Care ---
Author Name Unknown Organization [facility] Address [address] [place] [address] Phone [phone] Care Team Providers Care Manager College Name Role Phone Anurag Mora MD Primary Care Provider + Reason for Visit * Reason Comments Dosage Adjustment Via Phone (anticoag Cl inic) Encounter Details Date Type Department Care Team (Latest Contact Info) Description 02/18/2024 5:30 PM EDT Anticoagulation Pharmacy, [facility] 200 [place] [address] Pharmacist1, [facility] 200 [facility] [place] [address] Anticoagulation management encounter*; H/O ischemic multifocal posterior [...] goal of less than 7.0% ([facility]) Use as directed. Use to test [...] in the morning. Active OneTouch Delica Plus [id number] :Type 2 diabetes mellitus with hemoglobin A1c goal of less than 7.0% ([facility]),High blood sugar USE TO CHECK GLUCOSE ONCE DAILY 100 Each 3 08/22/2023 Active OneTouch Verio In Vitro Strip (Glucose Blood)Indications:Ty pe 2 diabetes mellitus with hemoglobin A1c goal of less than 7.0% ([facility]),High blood sugar USE 1 STRIP TO [...] (Coumadin)Indication s:PAF (paroxysmal atrial fibrillation) ([facility]) TAKE 2 TABLETS BY MOUTH ON SUNDAY AND 1 TABLET ON OTHER DAYS OF THE WEEK OR DIRECTED BY COAG CLINIC 104 Tablet 2 11/22/2023 Active metFORMIN HCl 1000 MG Oral Tablet (Glucophage)Indicati ons:High blood sugar,Type 2 diabetes mellitus with hemoglobin A1c goal of less than 7.0% ([facility]) TAKE 1 TABLET BY MOUTH WITH [...] nodule 05/04/2011 12/01/2017 Overview: 08/2009 CT -- 75p04hm 11/2012 CT -- 11x8mm, f/u in 18 [...] surveillance.- tubular adenoma Migraine without aura 05/15/20052017 half-way current use of ant icoagulant therapy 07/08/2003 [...] mRNA, LNP-s, No Pre serve, 2-Dose Series (EnGene[employer]) 04/13/2021,09/11/2020,08/21/2020 COVID-19, LNP-s, No Preserve , Cholo-sucrose, Ages 12+ (Pfizer) 10/20/2021 Covid-19, Mrna, Lnp-s, Pf, B ivalent, 30 Mcg, IM, 12 yrs and above (EnGeneIC) 03/29/2022 H1N1 2009 Influenza, IM 07/02/2009 Pneumococcal [...] this encounter Progress Notes * Florian Light [facility] - 02/18/2024 1:16 PM EDT Medication Therapy Disease Management - Anticoagulation Patient: Arnulfo Cortez Navjot | : 1940 Subjective Contacts Type Contact Phone/Fax 02/18/2024 10:16 AM EDT Phone (Incoming) Donnell MORELOS~Carmel (Other) [phone] 02/18/2024 01:17 PM EDT Phone (Outgoing) Arnulfo Morfin (Self) [phone] (H) Spoke to Patient - Continuing this [...] week(s) Weekly dose: continuing last week's dosing. [facility] (FAXED note). Additional Dosing Information: Description (Takes [...] by another provider/QHP. Florian Light PharmD (Tina), [facility] PGY1 Apparel Sales Leader Medication Therapy Management Clinic 02/18/2024 1:49 PM * Alina Casey slubber operator - 02/18/2024 10:17 AM EDT Caller's name: Carmel Estefania call back number(OFFICE NUMBER FOR ): [phone] Reason for call: nursing facility, [facility], calling with INR results. Result is 2.5 which was drawnon 02/18/24. Patient is not being discharged. Thank you, Alina Casey Osha Inspector Centralized Clinical Pharmacy Services 02/18/2024,10:17 AM documented [...] PM EDT Office Visit General Internal Medicine [address] [place] [address] Anurag Mora MD [address] [place], [place] [address] [address] 03/04/2024 9:30 AM EDT Office Visit [facility] Disorders Ctr [facility] [address] [facility] [place] [address] Elena Cuevas CRNP [address] [facility] [place] [address] 05/27/2024 8:15 AM EST Office Visit MOHS Surgery [facility] [address] [facility] [address] [place] [address] Jewell Pastor MD [address] [place] [address] [place] [address] 06/23/2024 2:30 PM EST Office Visit Cardiology, [facility] [address] [place] [address] Juancho Nelson DO [address] [place] [address] 01/15/2025 1:30 PM EDT Office Visit Neurology [facility] [address] Evelyn Mcgill PA-C [address] [place] [address] Scheduled Procedures Name Priority Associated Diagnoses Date/Ti [...] this encounter Medical Devices Implanted Type Area Adjuster And Inspector Device Identifier Shelf Expiration Date Model / Serial / Lot Lens Intraoc 18.0 - [id number] - [id number] Implanted:Qty: 1 on 12/11/2017 by Bryan Alfaro MD at [facility] Right: Eye [employer] 07/15/2021 [id number] / [id number] / [id number] Clip Quick 2.8mm 230cm - [id number] Implanted:Qty: 1 on 08/11/2020 by Anaid Powell DO at [facility] [employer] 09/15/2022 HX-202UR.A / / [id number] Clip Quick 2.8mm 230cm - [id number] Implanted:Qty: 1 on 08/11/2020 by Anaid Powell DO at [facility] [employer] 09/15/2022 HX-202UR.A / / [id number] Clip Quick 2.8mm 230cm - [id number] Implanted:Qty: 1 on 08/11/2020 by Anaid Powell DO at [facility] [employer] 09/15/2022 HX-202UR.A / / [id number] Clip Quick 2.8mm 230cm - [id number] Implanted:Qty: 1 on 08/11/2020 by Anaid Powell DO at [facility] [employer] 09/15/2022 HX-UR.A / / [id number] documented as of this encounter Procedures Procedure [...] and were consensually agreed upon. Care Teams Manager College Relationship Specialty Start Date End Date Anurag Mora MD [address] [place] [address] PCP - General Internal Medicine 05/06/21 documented as of this encounter"
--- OUTSIDE RECORDS SUMMARY | 2024-02-28 04:39 | External Medical Summary | Summary of Care ---
Author Name Unknown Organization [facility] Address [address] [place] [address] Phone [phone] Care Team Providers Care Interviewing Clerk Name Role Phone Anurag Mora MD Primary Care Provider + Reason for Visit * Reason Comments Dosage Adjustment Via Phone (anticoag Cl inic) Encounter Details Date Type Department Care Team (Latest Contact Info) Description 02/25/2024 5:40 PM EDT Anticoagulation Pharmacy, [facility] [address] [facility] [place] [address] Pharmacist1, [facility] 200 [facility] [place] [address] H/O ischemic multifocal posterior circulation stroke*; History of pulmonary embolism Allergies Active Allergy Reactions Criticality Noted Date Comments Deandre Inhibitors Cough Medium 05/25/2008 Propoxyphene N-Acetaminophen Nausea/vomiting Low 04/26/2010 Gabapentin Nausea/vomiting Low 04/10/2011 Omeprazole 12/05/2002 bad side effects documented as of this encounter (statuses as of 02/25/2024) Medications Medication Sig Dispensed Refills Start Date End Date Status FOLIC ACID TABS 1 MG ORIndications:Acute [place], anterior wall (HCC) 1 TABLET DAILY 30 [...] of less than 7.0% ([facility]) Use as directed. Use to test [...] in the morning. Active OneTouch Delica Plus [id number] :Type 2 diabetes mellitus with hemoglobin A1c goal of less than 7.0% ([facility]),High blood sugar USE TO CHECK GLUCOSE ONCE DAILY 100 Each 3 08/22/2023 Active OneTouch Verio In Vitro Strip (Glucose Blood)Indications:Ty pe 2 diabetes mellitus with hemoglobin A1c goal of less than 7.0% ([facility]),High blood sugar USE 1 STRIP TO [...] s:PAF (paroxysmal atrial fibrillation) ([facility]) TAKE 2 TABLETS BY MOUTH ON SUNDAY AND 1 TABLET ON OTHER DAYS OF THE WEEK OR DIRECTED BY COAG CLINIC 104 Tablet 2 11/22/2023 Active metFORMIN HCl 1000 MG Oral Tablet (Glucophage)Indicati ons:High blood sugar,Type 2 diabetes mellitus with hemoglobin A1c goal of less than 7.0% ([facility]) TAKE 1 TABLET BY MOUTH WITH [...] as of this encounter (statuses as of 02/25/2024) Active Problems Problem Noted Date Diagnosed Date [...] as of this encounter (statuses as of 02/25/2024) Resolved Problems Problem Noted Date Diagnosed Date Resolved Date Sinus pause 07/26/2018 10/16/2018 History of malignant neoplasm of skin 05/02/2018 04/08/2019 History of migraine 05/02/2018 04/08/20 19 Cryptogenic stroke 01/21/2018 9 Anticoagulated on warfarin 01/21/2018 0 08/05/2021 Prediabetes 08/28/2017 06/30/2021 Overview: Per Prediabetes protocol #1 RLL 1.4 cm nodule 05/04/2011 12/01/2017 Overview: 08/2009 CT -- 33y19jl 11/2012 CT -- 11x8mm, f/u in 18 [...] surveillance.- tubular adenoma 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 07/08/2003 [...] as of this encounter (statuses as of 02/25/2024) Immunizations Name Administration Dates Next Due COVID-19 mRNA, LNP-s, No Pre serve, 2-Dose Series (Moblication) 04/13/2021,09/11/2020,08/21/2020 COVID-19, LNP-s, No Preserve , Cholo-sucrose, Ages 12+ (Moblication) 10/20/2021 Covid-19, Mrna, Lnp-s, Pf, B ivalent, 30 Mcg, IM, 12 yrs and above (Moblication) 03/29/2022 H1N1 2009 Influenza, IM 07/02/2009 Pneumococcal [...] as of this encounter Progress Notes * Rocky Barrow RPh - 02/25/2024 12:44 PM EDT Patient Phone Numbers [email or web address] [phone] Order faxed to [email or web address] ([phone]) Description (Takes in AM) 1.25mg MWF, 2.5mg all other days - Bactrim DS INR Result As of 02/25/2024 INR goal: 2.0-3.0 INR used for dosin.5 (02/25/2024) Patient Findings Negatives: Signs/symptoms of thrombosis, Signs/symptoms of bleeding, Change in health, Change in alcohol use, Change in activity, Upcoming invasive procedure, Missed doses, Extra doses, Change in medications, Change in diet/appetite, Bruising Warfarin Plan As of 02/25/2024 Full warfarin instructions: 5 mg every Shara, Sat; 2.5 mg all other days No change documented: Rocky Barrow RPh Next INR check: 03/03/2024 Repeat PT/INR in 1 week(s) Weekly dose: not changed Rocky Dawn RPh, CACP, CDE Clinical Pharmacist Medication Therapy Management Clinic 02/25/2024, 12:44 PM * Patrick Guerin CPhT - 02/25/2024 10:48 AM EDT Verbal results from Ad[facility] at [facility]: 2.5/ -- will fax hard copy. documented in this encounter Plan of Treatment Upcoming Encounters Date Type Department Care Team (Late st Contact Info) Description 02/26/2024 3:20 PM EDT Office Visit General Internal Medicine [facility] [address] [place] [address] Marbella Rubio PA-C [address] [place] [address] 03/03/2024 3:30 PM EDT Imaging Radiology [address] 132 [facility] [place] [address] 03/03/2024 5:40 PM EDT Anticoagulation Pharmacy, [facility] [address] [place] [address] Pharmacist1, [facility] [address] [facility] [place] [address] 03/04/2024 9:30 AM EDT Office Visit Sleep Disorders Ctr [facility] [address] [place] [phone] Elena Cuevas CRNP 132 [facility] [place] [address] 05/27/2024 8:15 AM EST Office Visit MOHS Surgery [facility] [address] [place] [address] Jewell Pastor MD [address] [facility] [address] 06/23/2024 2:30 PM EST Office Visit Cardiology, [facility] [address] [place] [address] Juancho Nelson, [address] [place] [address] 01/15/2025 1:30 PM EDT Office Visit Neurology [facility] [address] [place] [address] Evelyn Mcgill PA-C [address] [place] [address] Scheduled Procedures Name Priority Associated Diagnoses Date/Ti me COLONOSCOPY FLEXIBLE PROXIMA L DIAGNOSTIC Recall History of colonic polyps Health Maintenance Due Date Last Done Comments Zoster Vaccines (2 of 3) 06/29/2011 05/04/2011 Adult Wellness Visit 05/26/2023 05/26/2022, 05/25/20 21 Depression Screening 05/26/2023 05/26/2022 Albumin/Creatinine Ratio 07/27/2023 07/27/2022, 02/08/2021 COVID-19 Vaccine ( season) 2023 04/30/2023, 03/29/2022, [...] this encounter Medical Devices Implanted Type Area Lead C Developer Device Identifier Shelf Expiration Date Model / Serial / Lot Lens Intraoc 18.0 - [id number] - [id number] Implanted:Qty: 1 on 12/11/2017 by Bryan Alfaro MD at [facility] Right: Eye [employer] 07/15/2021 [id number] / [id number] / [id number] Clip Quick 2.8mm 230cm - [id number] Implanted:Qty: 1 on 08/11/2020 by Anaid Powell DO at ENDOSCOPY [facility] [employer] 09/15/2022 HX-202UR.A / / [id number] Clip Quick 2.8mm 230cm - [id number] Implanted:Qty: 1 on 08/11/2020 by Anaid Powell DO at ENDOSCOPY [facility] [employer] 09/15/2022 HX-202UR.A / / [id number] Clip Quick 2.8mm 230cm - [id number] Implanted:Qty: 1 on 08/11/2020 by Anaid Powell, DO at [facility] [employer] 09/15/2022 HX-202UR.A / / [id number] Clip Quick 2.8mm 230cm - [id number] Implanted:Qty: 1 on 08/11/2020 by Anaid Powell, DO at [facility]COPY [facility] [employer] 09/15/2022 HX-202UR.A / / [id number] documented as of this encounter Procedures Procedure Name Priority Date/Time Associated Diagnosis Comments OUTSIDE LAB-PT/INR Routine 02/25/2024 documented in this encounter Results * OUTSIDE LAB-PT/INR (02/25/2024) INR-OUTSIDE LAB 2.5 History Per Patient LABORATORY documented in this encounter Visit Diagnoses Diagnosis H/O ischemic [...] and were consensually agreed upon. Care Teams Interviewing Clerk Relationship Specialty Start Date End Date Anurag Mora MD [address] [place] [address] PCP - General Internal Medicine 05/06/21 documented as of this encounter
--- OUTSIDE RECORDS SUMMARY | 2024-02-28 04:39 | External Medical Summary | Summary of Care ---
Author Name Unknown Organization [facility] Address [address] [place] [address] Phone [phone] Care Team Providers Care Breakfast And Room Attendant Name Role Phone Anurag Mora MD Primary Care Provider + Reason for Visit * Reason Comments Outpatient Testing Encounter Details Date Type Department Care Team (Late st Contact Info) Description 02/26/2024 4:30 PM EDT Laboratory Laboratory Scenery [facility] [address] [place] [id number] [place], Lab Scenery [address] [place] [address] Acute blood loss anemia; Type 2 diabetes mellitus with hemoglobin A1c goal of less than 7.0% ([facility]) Allergies Active Allergy Reactions Criticality Noted Date Comments Deandre Inhibitors Cough Medium 05/25/2008 Propoxyphene N-Acetaminophen Nausea/vomiting Low 04/26/2010 Gabapentin Nausea/vomiting Low 04/10/2011 Omeprazole 12/05/2002 bad side effects documented as of this encounter (statuses as of 02/26/2024) Medications Medication Sig Dispensed Refills Start Date End Date Status FOLIC ACID TABS 1 MG ORIndications:Acute PR, anterior wall (HCC) 1 TABLET DAILY 30 [...] 10 cm every night at bedtime. Active [employer] Verio Flex System w/Device KitIndications:High blood sugar,Type 2 diabetes mellitus with hemoglobin A1c goal of less than 7.0% ([facility]) Use as directed. Use to test [...] MOUTH DAILY 90 Capsule 3 05/18/2022 Active Calcipotriene 0.005 % External Cream (Calcitrene) [...] in the morning. Active OneTouch Delica Plus [id number] :Type 2 diabetes mellitus with hemoglobin A1c goal of less than 7.0% (HCC),High blood sugar USE TO CHECK GLUCOSE ONCE DAILY 100 Each 3 08/22/2023 Active [employer] Verio In Vitro Strip (Glucose Blood)Indications:Ty pe 2 diabetes mellitus with hemoglobin A1c goal of less than 7.0% (HCC),High blood sugar USE 1 STRIP TO CHECK [...] (Coumadin)Indication s:PAF (paroxysmal atrial fibrillation) ([facility]) TAKE 2 TABLETS BY MOUTH ON SUNDAY AND 1 TABLET ON OTHER DAYS OF THE WEEK OR DIRECTED BY COAG CLINIC 104 Tablet 2 11/22/2023 Active metFORMIN HCl 1000 MG Oral Tablet (Glucophage)Indicati ons:High blood sugar,Type 2 diabetes mellitus with hemoglobin A1c goal of less than 7.0% ([facility]) TAKE 1 TABLET BY MOUTH WITH BREAKFAST AND DINNER 180 Tablet 2 11/22/2023 Active Losartan Potassium 50 MG Oral Tablet (Cozaar)Indications: HTN, goal below 140/90,ASCVD (arteriosclerotic cardiovascular disease) TAKE 1 TABLET BY MOUTH TWICE DAILY 180 Tablet 3 11/22/2023 Active Additional Information Patient taking differently: Q, Reported on 11/29/2023 amLODIPine Besylate 2.5 MG Oral Tablet (Norvasc)Indications :HTN, goal below 140/90 TAKE 1 TABLET BY MOUTH DAILY 90 Tablet 3 02/06/2024 Active DULoxetine HCl 60 MG Oral Capsule Delayed Release Particles (Cymbalta) TAKE 1 CAPSULE BY MOUTH AT NIGHT 90 Capsule 3 02/14/2024 Active Zoster Vac Recomb Adjuvanted 50 MCG/0.5ML Intramuscular Suspension Reconstituted (Shingrix)Indication s:Need for vaccination for zoster Inject 0.5 mL into a large muscle now and repeat dose in 60 to 180 days 1 Each 02/26/2024 Active documented as of this encounter (statuses [...] nodule 05/04/2011 12/01/2017 Overview: 08/2009 CT -- [id number] 11/2012 CT -- 11x8mm, f/u in 18 [...] surveillance.- tubular adenoma 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 07/08/2003 [...] mRNA, LNP-s, No Pre serve, 2-Dose Series ([employer]) 04/13/2021,09/11/2020,08/21/2020 COVID-19, LNP-s, No Preserve , Cholo-sucrose, [...] Description 03/03/2024 3:30 PM EDT Imaging Radiology [address] 132 [facility] [place] [address] 03/03/2024 5:40 PM EDT Anticoagulation Pharmacy, [facility] [address] [place] [address] Pharmacist1, [facility] [address] [place] [address] 03/04/2024 9:30 AM EDT Office Visit Sleep Disorders Ctr [facility] 132 [facility] [place] [phone] Elena Cuevas CRNP 132 [facility] [place] [address] 05/27/2024 8:15 AM EST Office Visit MOHS Surgery [facility] [address] [place], [place] [address] Jewell Pastor MD 200 [facility] [place] [address] 06/23/2024 2:30 PM EST Office Visit Cardiology, [facility] [address] [facility] [place] [address] Juancho Nelson, [address] [place] [address] 10/28/2024 2:40 PM EDT Office Visit General Internal Medicine [facility] 200 [facility] [place] [address] Anurag Mora MD 200 [facility] [place] [address] 01/15/2025 1:30 PM EDT Office Visit Neurology [address] [place] [address] Evelyn Mcgill PA-C [address] [place] [address] Pending Results Name Type Priority Associated Diagnoses Date /Time CBC Lab Routine Acute blood loss anemia 02/26/2024 4:33 PM EDT BASIC METABOLIC PANEL Lab Routine Type 2 diabetes mellitus with hemoglobin A1c goal of less than 7.0% ([facility]) 02/26/2024 4:33 PM EDT Scheduled Procedures Name Priority Associated Diagnoses Date/Ti [...] this encounter Medical Devices Implanted Type Area Photographer News Device Identifier Shelf Expiration Date Model / Serial / Lot Lens Intraoc 18.0 - [id number] - [id number] Implanted:Qty: 1 on 12/11/2017 by Bryan Alfaro MD at OR [facility] Right: Eye [employer] 07/15/2021 [id number] / [id number] / [id number] Clip Quick 2.8mm 230cm - [id number] Implanted:Qty: 1 on 08/11/2020 by Anaid Powell, DO at ENDOSCOPY [facility] [employer] 09/15/2022 HX-202UR.A / / [id number] Clip Quick 2.8mm 230cm - [id number] Implanted:Qty: 1 on 08/11/2020 by Anaid Powell, DO at ENDOSCOPY [facility] [employer] 09/15/2022 HX-202UR.A / / [id number] Clip Quick 2.8mm 230cm - [id number] Implanted:Qty: 1 on 08/11/2020 by Anaid Powell, DO at [facility]COPY [facility] [employer] 09/15/2022 HX-202UR.A / / [id number] Clip Quick 2.8mm 230cm - [id number] Implanted:Qty: 1 on 08/11/2020 by Anaid Powell, DO at ENDOSCOPY [facility] [employer] 09/15/2022 HX-202UR.A / / [id number] documented as of this encounter Visit Diagnoses Diagnosis Acute blood loss anemia Acute posthemorrhagic anemia Type 2 diabetes mellitus with hemoglobin A1c goal of less than 7.0% (HCC) documented in this encounter Advance Directives * Full Code (Latest Code Status on File) Date Activated Date Inactivated Comments 12/11/2017 12:38 PM 12/11/2017 7:16 PM This order reflects the patients wishes and were consensually agreed upon. Care Teams Breakfast And Room Attendant Relationship Specialty Start Date End Date Anurag Mora MD 200 [place] [address] PCP - General Internal Medicine 05/06/21 documented as of this encounter
--- OUTSIDE RECORDS SUMMARY | 2024-02-28 04:40 | External Medical Summary | Summary of Care ---
Author Name Unknown Organization [facility] Address [address] [place] [address] Phone [phone] Care Team Providers Care Business Support Administrator Name Role Phone Anurag Mora MD Primary Care Provider + Reason for Visit * Reason Comments eRx-Medication Refill Encounter Details Date Type Department Care Team (Late st Contact Info) Description 02/14/2024 Refill Neurology [facility] [address] [facility] [address] [address] [place] [address] Evelyn Mcgill PA-C [facility] [place] [phone] Allergies Active Allergy Reactions Criticality Noted Date Comments Deandre Inhibitors Cough Medium 05/25/2008 Propoxyphene N-Acetaminophen Nausea/vomiting Low 04/26/2010 Gabapentin Nausea/vomiting Low 04/10/2011 Omeprazole 12/05/2002 bad side effects documented as of this encounter (statuses as of 02/14/2024) Medications Medication Sig Dispensed Refills Start Date End Date Status FOLIC ACID TABS 1 MG ORIndications:Acute RI, anterior wall (HCC) 1 TABLET DAILY 30 0 1 Active ZYRTEC 10 MG PO TABSIndications:All ergic rhinitis due to other allergen One pill by mouth once a day for allergies 90 3 9 Active Polyethylene Glycol 3350 17 GM/SCOOP Oral PowderIndications:a s needed Take 17 g by mouth daily [...] goal of less than 7.0% ([facility]) Use as directed. Use to test blood [...] Active Tamsulosin HCl 0.4 MG Oral Capsule (Flomax)Indications :BPH without obstruction/lower urinary tract symptoms TAKE 1 CAPSULE BY MOUTH DAILY 90 Capsule 3 2 Active Zoster Vac Recomb Adjuvanted 50 MCG/0.5ML Intramuscular Suspension Reconstituted (Shingrix)Indicatio ns:Need for shingles vaccine Inject 0.5 mL into a large muscle now and repeat dose in 60 to 180 days 1 Each 1 2 Active Additional Information Patient not taking.Reported on 02/02/2023 Fluorouracil 5 % External Cream (Efudex) Apply topically to affected area 2 times a day. apply to affected area scalp, ears, temples, nose as directed 40 g 3 Active Calcipotriene 0.005 % External Cream (Calcitrene) Apply topically to affected area 2 times a day. Apply to scalp, ears, temples and nose as directed (mix with 5% 5-fluorouracil cream) 60 g 3 Active rOPINIRole HCl 0.25 MG Oral Tablet (Requip)Indications :Restless legs syndrome TAKE 1 TABLET BY MOUTH AT BEDTIME WITH FOOD 90 Tablet 3 3 Active Vitamin B-12 1000 MCG Oral Tablet (Cyanocobalamin) Take 1 Tablet by mouth in the morning. Active OneTouch Delica Plus [id number] s:Type 2 diabetes mellitus with hemoglobin A1c goal of less than 7.0% ([facility]),High blood sugar USE TO CHECK GLUCOSE ONCE DAILY 100 Each 3 4 Active OneTouch Verio In Vitro Strip (Glucose Blood)Indications:T ype 2 diabetes mellitus with hemoglobin A1c goal of less than 7.0% ([facility]),High blood sugar USE 1 STRIP TO CHECK GLUCOSE ONCE DAILY 100 Strip 3 4 Active Pantoprazole Sodium 40 MG Oral Tablet Delayed Release (Protonix)Indicatio ns:Gastroesophageal reflux disease without esophagitis TAKE 1 TABLET BY MOUTH DAILY 90 Tablet 3 4 Active Rosuvastatin Calcium 20 MG Oral Tablet (Crestor)Indication s:Dyslipidemia, goal LDL below 100 TAKE 1 TABLET BY MOUTH DAILY 90 Tablet 3 4 Active Metoprolol Succinate ER 25 MG Oral Tablet Extended Release 24 Hour (toPROL XL)Indications:Old myocardial infarct,HTN, goal below 140/90 TAKE 1 TABLET BY MOUTH ONCE DAILY 90 Tablet 3 4 Active Warfarin Sodium 2.5 MG Oral Tablet (Coumadin)Indicatio ns:PAF (paroxysmal atrial fibrillation) ([facility]) TAKE 2 TABLETS BY MOUTH ON SUNDAY AND 1 TABLET ON OTHER DAYS OF THE WEEK OR DIRECTED BY COAG CLINIC 104 Tablet 2 4 Active metFORMIN HCl 1000 MG Oral Tablet (Glucophage)Indicat ions:High blood sugar,Type 2 diabetes mellitus with hemoglobin A1c goal of less than 7.0% ([facility]) TAKE 1 TABLET BY MOUTH WITH BREAKFAST AND DINNER 180 Tablet 2 4 Active Losartan Potassium 50 MG Oral Tablet (Cozaar)Indications :HTN, goal below 140/90,ASCVD (arteriosclerotic cardiovascular disease) TAKE 1 TABLET BY MOUTH TWICE DAILY 180 Tablet 3 4 Active Additional Information Patient taking differently: [facility], Reported on 11/29/2023 amLODIPine Besylate 2.5 MG Oral Tablet (Norvasc)Indication s:HTN, goal below 140/90 TAKE 1 TABLET BY MOUTH DAILY 90 Tablet 3 4 Active DULoxetine HCl 60 MG Oral Capsule Delayed Release Particles (Cymbalta) TAKE 1 CAPSULE BY MOUTH AT NIGHT 90 Capsule 3 4 Active DULoxetine HCl 60 MG Oral Capsule Delayed Release Particles (Cymbalta) TAKE 1 CAPSULE BY MOUTH AT NIGHT 90 Capsule 2 3 02/14/20 24 Discontinued documented as of this encounter (statuses as [...] nodule 05/04/2011 12/01/2017 Overview: 08/2009 CT -- [id number] 11/2012 CT -- 11x8mm, f/u in 18 [...] surveillance.- tubular adenoma Migraine without aura 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 07/08/2003 [...] mRNA, LNP-s, No Pre serve, 2-Dose Series ([employer]) 04/13/2021,09/11/2020,08/21/2020 COVID-19, LNP-s, No Preserve , Cholo-sucrose, Ages 12+ ([employer]) 10/20/2021 Covid-19, Mrna, Lnp-s, Pf, B ivalent, 30 Mcg, IM, 12 yrs and above ([employer]) 03/29/2022 H1N1 2009 Influenza, IM 07/02/2009 Pneumococcal [...] encounter Miscellaneous Notes * Telephone Encounter - Chente Almonte [facility] - 02/14/2024 12:07 PM EDTSigned Prescriptions: Disp Refills DULoxetine HCl 60 MG Oral Capsule Delayed *90 Cap*3 Sig: TAKE 1 CAPSULE BY MOUTH AT NIGHTAuthorizing Provider: Callie MCGILL User: CHENTE ALMONTE-- documented in this encounter Plan of Treatment Upcoming Encounters Date Type Department Care Team (Late st Contact Info) Description 02/19/2024 2:40 PM EDT Office Visit General Internal Medicine [facility] 200 [facility] [place] [address] Anurag Mora MD [address] [facility] [place] [address] 03/04/2024 9:30 AM EDT Office Visit Sleep Disorders Ctr [facility] [address] [place] [phone] Elena Cuevas CRNP [address] [place] [address] 05/27/2024 8:15 AM EST Office Visit MOHS Surgery [facility] [address] Jewell Pastor MD 200 [facility] [place] [address] 06/23/2024 2:30 PM EST Office Visit Cardiology, [facility] 132 [facility] [place] [address] Juancho Nelson DO [address] [place] [address] 01/15/2025 1:30 PM EDT Office Visit Neurology [facility] [address] [facility] [place] [address] Evelyn Mcgill PA-C [address] [place] [address] Scheduled Procedures Name Priority Associated Diagnoses Date/Ti [...] this encounter Medical Devices Implanted Type Area Sack Department Supervisor Device Identifier Shelf Expiration Date Model / Serial / Lot Lens Intraoc 18.0 - [id number] - [id number] Implanted:Qty: 1 on 12/11/2017 by Bryan Alfaro MD at OR [facility] Right: Eye [employer] 07/15/2021 [id number] / [id number] / [id number] Clip Quick 2.8mm 230cm - [id number] Implanted:Qty: 1 on 08/11/2020 by Anaid Powell, DO at ENDOSCOPY [facility] [employer] 09/15/2022 HX-202UR.A / / [id number] Clip Quick 2.8mm 230cm - [id number] Implanted:Qty: 1 on 08/11/2020 by Anaid Powell, DO at ENDOSCOPY [facility] [employer] 09/15/2022 HX-202UR.A / / [id number] Clip Quick 2.8mm 230cm - [id number] Implanted:Qty: 1 on 08/11/2020 by Anaid Powell, DO at ENDOSCOPY [facility] [employer] 09/15/2022 HX-202UR.A / / [id number] Clip Quick 2.8mm 230cm - [id number] Implanted:Qty: 1 on 08/11/2020 by Anaid Powell, DO at ENDOSCOPY [facility] [employer] 09/15/2022 HX-UR.A / / [id number] documented as of this encounter Advance Directives * Full Code (Latest Code Status on File) Date Activated Date Inactivated Comments 12/11/2017 12:38 PM 12/11/2017 7:16 PM This order reflects the patients wishes and were consensually agreed upon. Care Teams Business Support Administrator Relationship Specialty Start Date End Date Anurag Mora MD [address] [place] [address] PCP - General Internal Medicine 05/06/21 documented as of this encounter
--- OUTSIDE RECORDS SUMMARY | 2024-02-28 04:40 | External Medical Summary | Summary of Care ---
Author Name Unknown Organization [facility] Address [address] [facility] [address] Phone [phone] Care Team Providers Care Electrical Inspector Name Role Phone Anurag Mora MD Primary Care Provider + Reason for Visit * Reason Comments eRx-Medication Refill Encounter Details Date Type Department Care Team (Late st Contact Info) Description 02/06/2024 Refill Cardiology, [facility] [address] [place] [address] Perico Reed PA-C [address] [place] [address] HTN, goal below 140/90 Allergies Active Allergy Reactions Criticality Noted Date Comments Deandre Inhibitors Cough Medium 05/25/2008 Propoxyphene N-Acetaminophen Nausea/vomiting Low 04/26/2010 Gabapentin Nausea/vomiting Low 04/10/2011 Omeprazole 12/05/2002 bad side effects documented as of this encounter (statuses as of 02/06/2024) Medications Medication Sig Dispensed Refills Start Date End Date Status FOLIC ACID TABS 1 MG ORIndications:Acute AL, anterior wall (HCC) 1 TABLET DAILY 30 [...] hemoglobin A1c goal of less than 7.0% ([facility]) Use as directed. Use to [...] WITH FOOD 90 Tablet 3 3 Active DULoxetine HCl 60 MG Oral Capsule Delayed Release Particles (Cymbalta) TAKE 1 CAPSULE BY MOUTH AT NIGHT 90 Capsule 2 3 Active Vitamin B-12 1000 MCG Oral Tablet (Cyanocobalamin) Take 1 Tablet by mouth in the morning. Active OneTouch Delica Plus [id number] s:Type 2 diabetes mellitus with hemoglobin A1c goal of less than 7.0% ([facility]),High blood sugar USE TO CHECK GLUCOSE ONCE DAILY 100 Each 3 4 Active OneTouch Verio In Vitro Strip (Glucose Blood)Indications:T ype 2 diabetes mellitus with hemoglobin A1c goal of less than 7.0% ([facility]),High blood sugar USE 1 STRIP [...] Oral Tablet (Coumadin)Indicatio ns:PAF (paroxysmal atrial fibrillation) ([facility]) TAKE 2 TABLETS BY MOUTH ON SUNDAY AND 1 TABLET ON OTHER DAYS OF THE WEEK OR DIRECTED BY COAG CLINIC 104 Tablet 2 4 Active metFORMIN HCl 1000 MG Oral Tablet (Glucophage)Indicat ions:High blood sugar,Type 2 diabetes mellitus with hemoglobin A1c goal of less than 7.0% ([facility]) TAKE 1 TABLET BY MOUTH [...] MOUTH DAILY 90 Tablet 3 4 Active amLODIPine Besylate 2.5 MG Oral Tablet (Norvasc)Indication s:HTN, goal below 140/90 TAKE 1 TABLET BY MOUTH DAILY 90 Tablet 3 3 02/06/20 24 Discontinued documented as of this encounter (statuses as of 02/06/2024) Active Problems Problem Noted Date Diagnosed Date [...] as of this encounter (statuses as of 02/06/2024) Resolved Problems Problem Noted Date Diagnosed Date Resolved Date Sinus pause 07/26/2018 10/16/2018 History of malignant neoplasm of skin 05/02/2018 04/08/2019 History of migraine 05/02/2018 04/08/20 19 Cryptogenic stroke 01/21/2018 9 Anticoagulated on warfarin 01/21/2018 0 08/05/2021 Prediabetes 08/28/2017 06/30/2021 Overview: Per Prediabetes protocol #1 RLL 1.4 cm nodule 05/04/2011 12/01/2017 Overview: 08/2009 CT -- [id number] 11/2012 CT -- 11x8mm, f/u in 18 [...] surveillance.- tubular adenoma Migraine without aura 05/15/20052017 penitentiary current use of ant icoagulant therapy 07/08/2003 [...] as of this encounter (statuses as of 02/06/2024) Immunizations Name Administration Dates Next Due COVID-19 mRNA, LNP-s, No Pre serve, 2-Dose Series ([facility]) 04/13/2021,09/11/2020,08/21/2020 COVID-19, LNP-s, No Preserve , Cholo-sucrose, Ages 12+ ([facility]) 10/20/2021 Covid-19, Mrna, Lnp-s, Pf, B ivalent, [...] encounter Miscellaneous Notes * Telephone Encounter - Esvin Castro PA-C - 02/06/2024 4:41 PM EDT Signed Prescriptions: Disp Refills amLODIPine Besylate 2.5 MG Oral Tablet (No*90 Tab*3 Sig: TAKE 1 TABLET BY MOUTH DAILY Authorizing Provider: ESVIN CASTRO * Telephone Encounter - Aisha Palm CMA - 02/06/2024 1:52 PM EDTPending Prescriptions: Disp Refills amLODIPine Besylate 2.5 MG Oral Tablet 90 Tab*3 Sig: TAKE 1 TABLET BY MOUTH DAILY * Telephone Encounter - Aisha Palm CMA - 02/06/2024 1:48 PM EDT Did you pend patient's preferred pharmacy and medication before forwarding?yes Pharmacy: [facility] Pending Prescriptions: Disp Refills amLODIPine Besylate 2.5 MG Oral Tablet (N*90 Tab*3 Sig: TAKE 1 TABLET BY MOUTH DAILY Last Visit: 11/29/2023 (in office), 10/22/2019 (telemedicine) Next Visit: 06/23/2024 If no future appointments scheduled, and last appointment is greater than a year ago, please schedule patient for a follow-up appointment Last date the medication was ordered: 05/02/23 Is this request for a controlled substance?No Urine Drug Screen:No results found. However, due to the size of the patient record, not all encounters were searched. Please check Results Review for a complete set of results. Patient Phone Numbers Labs: Lab Results Component Value Date/Time CREAT 1.0 02/02/2024 05:35 AM CREAT 1.1 07/27/2020 01:20 PM POTASSIUM 4.8 02/02/2024 05:35 AM POTASSIUM 4.8 07/27/2020 01:20 PM TSH 1.89 07/27/2020 01:20 PM TSH 2.17 05/21/1996 04:15 PM LDLCALC 27 08/17/2023 09:05 AM LDLCALC 54 10/16/2018 10:05 AM LDLDIRECT 57 07/27/2020 01:20 PM LDLDIRECT 57 2009 09:09 AM ALT 19 08/17/2023 09:05 AM ALT 34 07/27/2020 01:20 PM HGBA1C 6.2 (H) 08/17/2023 09:05 AM HGBA1C 5.7 (H) 02/01/2023 08:40 AM HGBA1C 6.5 (H) 07/27/2020 01:20 PM documented in this encounter Plan of Treatment Upcoming Encounters Date Type Department Care Team (Late st Contact Info) Description 02/08/2024 6:10 PM EDT Pharmacy Pharmacy, [facility] 200 [facility] [place] [address] Pharmacist1, [facility] 200 [facility] [place] [address] 02/13/2024 3:30 PM EDT Cardiac Studies Cardiac Studies, [facility] [address] [place] [address] 02/19/2024 2:40 PM EDT Office Visit General Internal Medicine [facility] 200 [facility] [place] [address] Anurag Mora MD 200 [facility] [place] [address] 03/04/2024 9:30 AM EDT Office Visit Sleep Disorders Ctr [facility] [place] [address] [place] [phone] Elena Cuevas CRNP [address] [place] [address] 05/27/2024 8:15 AM EST Office Visit MOHS Surgery [facility] 200 [facility] [place] [address] Jewell Pastor MD 200 [facility] [place] [address] 06/23/2024 2:30 PM EST Office Visit Cardiology, [facility] [address] [place] [address] Juancho Nelson, [address] [place] [address] 01/15/2025 1:30 PM EDT Office Visit Neurology [facility] 200 [facility] [place] [address] Evelyn Mcgill PA-C [address] [place] [address] Scheduled Procedures Name Priority Associated Diagnoses Date/Ti [...] 12/18/2023, , 08/29/2021, Additional history exists GFR 02/01/2025 02/02/2024, 08/2023, 07/27/2022, Additional history exists DTaP,Tdap,and Td Vaccines (2 [...] this encounter Medical Devices Implanted Type Area Associate Professor Of Education Device Identifier Shelf Expiration Date Model / Serial / Lot Lens Intraoc 18.0 - [id number] - [id number] Implanted:Qty: 1 on 12/11/2017 by Bryan Alfaro MD at OR [facility] Right: Eye [employer] 07/15/2021 [id number] / [id number] / [id number] Clip Quick 2.8mm 230cm - [id number] Implanted:Qty: 1 on 08/11/2020 by Anaid Powell DO at ENDOSCOPY [facility] [employer] 09/15/2022 HX-202UR.A / / [id number] Clip Quick 2.8mm 230cm - [id number] Implanted:Qty: 1 on 08/11/2020 by Anaid Powell DO at ENDOSCOPY [facility] [employer] 09/15/2022 HX-202UR.A / / [id number] Clip Quick 2.8mm 230cm - [id number] Implanted:Qty: 1 on 08/11/2020 by Anaid Powell DO at ENDOSCOPY [facility] [employer] 09/15/2022 HX-202UR.A / / [id number] Clip Quick 2.8mm 230cm - [id number] Implanted:Qty: 1 on 08/11/2020 by Anaid Powell DO at ENDOSCOPY [facility] [employer] 09/15/2022 HX-202UR.A / / [id number] documented as of this encounter Visit Diagnoses Diagnosis HTN, goal below 140/90 Unspecified essential hypertension documented in this encounter Advance Directives * Full Code (Latest Code Status on File) Date Activated Date Inactivated Comments 12/11/2017 12:38 PM 12/11/2017 7:16 PM This order reflects the patients wishes and were consensually agreed upon. Care Teams Electrical Inspector Relationship Specialty Start Date End Date Anurag Mora MD 200 [facility] [place] [place] [address] PCP - General Internal Medicine 05/06/21 documented as of this encounter
--- OUTSIDE RECORDS SUMMARY | 2024-02-28 04:40 | External Medical Summary ---
Author Name Unknown Address Unknown Organization K09:[facility] [place] [address] Laboratory Report Ordering Provider Test Date Status PHILIP SANTILLAN 02/06/2024 05:52:10 Final Warfarin Therapy
INR: 2 .0-3.0 conventional anticoagulation
INR: 2.5- 3.5 high intensity anticoagulation Observation Date Value Abnormality Reference (Units ) Status PT 02/06/2024 05:52:10 19.4 Above high normal 11 .6-15.2 (seconds) Final INR 02/06/2024 05:52:10 1.6 Above high normal 0. 8-1.2 Final Performing Location [facility] [place] [place] [address]
--- OUTSIDE RECORDS SUMMARY | 2024-02-28 04:40 | External Medical Summary ---
Author Name Unknown Address Unknown Organization K0G:[facility] [address] [place] [address] Laboratory Report Ordering Provider Test Date Status PHILIP SANTILLAN 02/03/2024 05:10:00 Final Warfarin Therapy
INR: 2 .0-3.0 conventional anticoagulation
INR: 2.5- 3.5 high intensity anticoagulation Observation Date Value Abnormality Reference (Units ) Status PT 02/03/2024 05:10:00 14.3 11.6-15.2 (seconds) Final INR 02/03/2024 05:10:00 1.1 0.8-1.2 Final Performing Location [facility] [address] [place] [address]
--- OUTSIDE RECORDS SUMMARY | 2024-02-28 04:40 | External Medical Summary ---
Author Name Unknown Address Unknown Organization K0G:LABORATORY [facility] [address] [place] [address] Laboratory Report Ordering Provider Test Date Status PHILIP SANTILLAN 02/09/2024 06:49:33 Final Warfarin Therapy
INR: 2 .0-3.0 conventional anticoagulation
INR: 2.5- 3.5 high intensity anticoagulation Observation Date Value Abnormality Reference (Units ) Status PT 02/09/2024 06:49:33 26.1 Above high normal 11 .6-15.2 (seconds) Final INR 02/09/2024 06:49:33 2.4 Above high normal 0. 8-1.2 Final Performing Location LAB[facility]ATORY [facility] [address] [place] [address]
--- OUTSIDE RECORDS SUMMARY | 2024-02-28 04:40 | External Medical Summary ---
Author Name Unknown Address Unknown Organization K0G:LABORATORY [facility] [address] [place] [address] Laboratory Report Ordering Provider Test Date Status PHILIP SANTILLAN 02/02/2024 05:35:00 Final Observation Date Value Abnormality Reference (Units ) Status WBC, Total 02/02/2024 05:35:00 7.62 4.00-10.8 0 (K/uL) Final RBC 02/02/2024 05:35:00 3.58 4.50-5.25 (M/uL) Final Hemoglobin 02/02/2024 05:35:00 11.2 Below low normal 14 .0-16.8 (g/dL) Final HCT 02/02/2024 05:35:00 35.6 Below low normal 40. 0-48.4 (%) Final MCV 02/02/2024 05:35:00 99.4 82.0-99.5 (fL) Final MCH 02/02/2024 05:35:00 31.3 27.0-34.0 (pg) Final MCHC 02/02/2024 05:35:00 31.5 32.0-36.0 (g/dL) Final RDW 02/02/2024 05:35:00 15.1 11.5-15.5 (%) Final Platelets 02/02/2024 05:35:00 289 140-400 (K /uL) Final MPV 02/02/2024 05:35:00 10.6 6.6-11.1 ( fL) Final Performing Location LABORATORY [facility] [address] [place] [address]
--- OUTSIDE RECORDS SUMMARY | 2024-02-28 04:40 | External Medical Summary ---
Author Name Unknown Address Unknown Organization K09:[facility]ATORY [place] [address] Laboratory Report Ordering Provider Test Date Status PHILIP SANTILLAN 02/08/2024 05:49:11 Final Observation Date Value Abnormality Reference (Units ) Status WBC, Total 02/08/2024 05:49:11 6.40 4.00-10.8 0 (K/uL) Final RBC 02/08/2024 05:49:11 3.64 4.50-5.25 (M/uL) Final Hemoglobin 02/08/2024 05:49:11 11.5 Below low normal 14 .0-16.8 (g/dL) Final HCT 02/08/2024 05:49:11 36.5 Below low normal 40. 0-48.4 (%) Final MCV 02/08/2024 05:49:11 100.3 82.0-99.5 (fL) Final MCH 02/08/2024 05:49:11 31.6 27.0-34.0 (pg) Final MCHC 02/08/2024 05:49:11 31.5 32.0-36.0 (g/dL) Final RDW 02/08/2024 05:49:11 16.3 11.5-15.5 (%) Final Platelets 02/08/2024 05:49:11 324 140-400 (K /uL) Final MPV 02/08/2024 05:49:11 10.2 6.6-11.1 ( fL) Final Performing Location [facility] [place] [address]
--- OUTSIDE RECORDS SUMMARY | 2024-02-28 04:40 | External Medical Summary ---
Author Name Unknown Address Unknown Organization K0G:LABORATORY [facility] [address] [place] [address] Laboratory Report Ordering Provider Test Date Status PHILIP SANTILLAN 02/02/2024 05:35:00 Final Observation Date Value Abnormality Reference (Units ) Status BUN 02/02/2024 05:35:00 28 Above high normal 6-20 (mg/dL) Final Creatinine 02/02/2024 05:35:00 1.0 0.6-1.2 (mg/dL) Final Glomerular filtration rate/1.73 sq M.predicted [Volume Rate/Area] in Serum, Plasma or Blood by Creatinine-based formula (CKD-EPI) 02/02/2024 05:35:00 79 >=60 (mL/min) Final eGFR is calculated based on the CKD-EPI 2020 equation. Sodium 02/02/2024 05:35:00 139 135-146 (m mol/L) Final Potassium 02/02/2024 05:35:00 4.8 3.5-5.1 (m mol/L) Final Cl 02/02/2024 05:35:00 104 98-107 (mm ol/L) Final CO2 02/02/2024 05:35:00 26 22-32 (mmo l/L) Final Anion gap 02/02/2024 05:35:00 9 7-15 (mmol /L) Final Glucose 02/02/2024 05:35:00 107 70-120 (mg /dL) Final Calcium 02/02/2024 05:35:00 9.3 8.4-10.2 ( mg/dL) Final Performing Location LABORATORY [facility] [address] [place] [address]
--- OUTSIDE RECORDS SUMMARY | 2024-02-28 04:40 | External Medical Summary ---
Author Name Unknown Address Unknown Organization K09:[facility] [place] [address] Laboratory Report Ordering Provider Test Date Status PHILIP SANTILLAN 02/04/2024 05:47:01 Final Warfarin Therapy
INR: 2 .0-3.0 conventional anticoagulation
INR: 2.5- 3.5 high intensity anticoagulation Observation Date Value Abnormality Reference (Units ) Status PT 02/04/2024 05:47:01 15.4 Above high normal 11 .6-15.2 (seconds) Final INR 02/04/2024 05:47:01 1.2 0.8-1.2 Final Performing Location [facility] [place] [address]
--- OUTSIDE RECORDS SUMMARY | 2024-02-28 04:40 | External Medical Summary ---
Author Name Unknown Address Unknown Organization K09:[facility] [place] [address] Laboratory Report Ordering Provider Test Date Status PHILIP SANTILLAN 02/07/2024 06:02:51 Final Warfarin Therapy
INR: 2 .0-3.0 conventional anticoagulation
INR: 2.5- 3.5 high intensity anticoagulation Observation Date Value Abnormality Reference (Units ) Status PT 02/07/2024 06:02:51 22.1 Above high normal 11 .6-15.2 (seconds) Final INR 02/07/2024 06:02:51 1.9 Above high normal 0. 8-1.2 Final Performing Location [facility] [place] [address]
--- OUTSIDE RECORDS SUMMARY | 2024-02-28 04:40 | External Medical Summary ---
Author Name Unknown Address Unknown Organization K09:[facility] [place] [address] Laboratory Report Ordering Provider Test Date Status PHILIP SANTILLAN 02/05/2024 05:21:24 Final Warfarin Therapy
INR: 2 .0-3.0 conventional anticoagulation
INR: 2.5- 3.5 high intensity anticoagulation Observation Date Value Abnormality Reference (Units ) Status PT 02/05/2024 05:21:24 16.9 Above high normal 11 .6-15.2 (seconds) Final INR 02/05/2024 05:21:24 1.4 Above high normal 0. 8-1.2 Final Performing Location [facility] [place] [address]
--- OUTSIDE RECORDS SUMMARY | 2024-02-28 04:40 | External Medical Summary | Summary of Care ---
Author Name Unknown Organization [facility] Address [address] [place] [address] Phone [phone] Care Team Providers Care [facility] Tray Service Worker Name Role Phone Anurag Mora MD Primary Care Provider + Reason for Visit * Reason Onset Date Comments Medication Question 02/14/2024 Encounter Details Date Type Department Care Team (Late st Contact Info) Description 02/14/2024 Telephone Centralized Clinical Pharmacy Services, Ney Castañeda [address] [place] [address] [place] [address] Pharmacist1, [facility] [address] [facility] [place] [address] Medication Question Allergies Active Allergy Reactions Criticality Noted Date Comments Deandre Inhibitors Cough Medium 05/25/2008 Propoxyphene N-Acetaminophen Nausea/vomiting Low 04/26/2010 Gabapentin Nausea/vomiting Low 04/10/2011 Omeprazole 12/05/2002 bad side effects documented as of this encounter (statuses as of 02/14/2024) Medications Medication Sig Dispensed Refills Start Date End Date Status FOLIC ACID TABS 1 MG ORIndications:Acute [place], anterior wall (HCC) 1 TABLET DAILY 30 [...] 10 cm every night at bedtime. Active TabTaleTouch Verio Flex System w/Device KitIndications:High blood sugar,Type 2 diabetes mellitus with hemoglobin A1c goal of less than 7.0% ([facility]) Use as directed. Use to test blood [...] in the morning. Active OneTouch Delica Plus [id number] :Type 2 diabetes mellitus with hemoglobin A1c goal of less than 7.0% ([facility]),High blood sugar USE TO CHECK GLUCOSE ONCE DAILY 100 Each 3 08/22/2023 Active OneTouch Verio In Vitro Strip (Glucose Blood)Indications:Ty pe 2 diabetes mellitus with hemoglobin A1c goal of less than 7.0% ([facility]),High blood sugar USE 1 STRIP TO CHECK [...] (Coumadin)Indication s:PAF (paroxysmal atrial fibrillation) ([facility]) TAKE 2 TABLETS BY MOUTH ON SUNDAY AND 1 TABLET ON OTHER DAYS OF THE WEEK OR DIRECTED BY [facility] CLINIC 104 Tablet 2 11/22/2023 Active metFORMIN HCl 1000 MG Oral Tablet (Glucophage)Indicati ons:High blood sugar,Type 2 diabetes mellitus with hemoglobin A1c goal of less than 7.0% ([facility]) TAKE 1 TABLET BY MOUTH WITH BREAKFAST [...] nodule 05/04/2011 12/01/2017 Overview: 08/2009 CT -- [id number] 11/2012 CT -- 11x8mm, f/u in 18 [...] surveillance.- tubular adenoma Migraine without aura 05/15/20052017 [facility] current use of ant icoagulant therapy 07/08/2003 [...] mRNA, LNP-s, No Pre serve, 2-Dose Series (LiveClips) 04/13/2021,09/11/2020,08/21/2020 COVID-19, LNP-s, No Preserve , Cholo-sucrose, [...] encounter Miscellaneous Notes * Telephone Encounter - Antony Nelson, [facility] - 02/14/2024 2:38 PM EDT Images from the original note were not included. Medication Therapy Disease Management - Anticoagulation Patient: Arnulfo Morfin | : 1940 Subjective Contacts Type Contact Phone/Fax 02/14/2024 02:15 PM EDT Phone (Incoming) Sugey Lama [phone] 02/14/2024 02:44 PM EDT Phone (Outgoing) Sugey Lama Spoke to Patient 02/14/2024 02:44 PM EDT Fax (Outgoing) [facility] [phone] Patient-Reported Symptoms: Objective Current Warfarin Dose As of 02/14/2024 Warfarin maintenance plan: 5 mg (2.5 mg x 2) every Shara; 2.5 mg (2.5 mg x 1) all other days INR Result As of 02/14/2024 INR goal: 2.0-3.0 INR used for dosin.6 (02/14/2024) Assessment & Plan Warfarin Plan As of 02/14/2024 Full warfarin instructions: 82: 5 mg; Otherwise 5 mg every Shara; 2.5 mg all other days Next INR check: 02/18/2024 Repeat PT/INR in 4 day(s) Weekly dose: not changed Additional Dosing Information: Description (Takes in AM) 1.25mg MWF, 2.5mg all other days - Bactrim DS Reported pt's dose of warfarin was significantly higher while admitted previously but has since [facility]ni (faxed orders and note) I spent a total of 10-19 minutes (exact time 15 mins) on the date of service in preparation, delivery, and documentation of the care provided to Arnulfo Morfin excluding any time spent in the performance of separately billed services or time spent by another provider/QHP. Antony Nelson [facility] Clinical Pharmacist 02/14/2024, 2:38 PM * Telephone Encounter - Kelly Pollard PHARM Tech - 02/14/2024 2:15 PM EDT Caller's name: Sugey Preferred call back number(OFFICE NUMBER FOR ): [phone] Reason for call: Charles Lama calling with questions in regards to patients dosing instructions for his Coumadin. Would like a call back from [facility] to go over them. Kelly Pollard [employer] Central[facility] Pharm[facility] Services [address] [place] [address] [address] [place] [phone] 02/14/2024,2:15 PM documented in this encounter Plan of Treatment Upcoming Encounters Date Type Department Care Team (Late st Contact Info) Description 02/18/2024 5:30 PM EDT Anticoagulation Pharmacy, [facility] [place] [place] [address] [place] [address] Pharmacist1, [facility] [address] [facility] [place] [address] 02/19/2024 2:40 PM EDT Office Visit General Internal Medicine [facility] [address] [facility] [place] [address] Anurag Mora MD [address] [facility] [place] [address] 03/04/2024 9:30 AM EDT Office Visit Sleep Disorders Ctr [facility] [address] [facility] [place] [phone] Elena Cuevas CRNP [address] [facility] [place] [address] 05/27/2024 8:15 AM EST Office Visit [facility] [address] Jewell Pastor MD [address] [facility] [place] [address] 06/23/2024 2:30 PM EST Office Visit Cardiology, [facility] [address] [facility] [place] [address] Juancho Nelson O, DO [address] [facility] [place] [address] 01/15/2025 1:30 PM EDT Office Visit Neurology [facility] [address] [facility] [place] [address] Evelyn Mcgill PA-C [address] [place] [address] Scheduled Orders Name Type Priority Associated Diagnoses Orde r Schedule PT INR Lab Routine H/O ischemic multifocal posterior circulation stroke Anticoagulation management encounter 26 Occurrences starting 02/14/2024 until 02/13/2025 Scheduled Procedures Name Priority Associated Diagnoses Date/Ti [...] this encounter Medical Devices Implanted Type Area Traffic Manager Device Identifier Shelf Expiration Date Model / Serial / Lot Lens Intraoc 18.0 - [id number] - [id number] Implanted:Qty: 1 on 12/11/2017 by Bryan Alfaro MD at OR [facility] Right: Eye [employer] 07/15/2021 [id number] / [id number] / [id number] Clip Quick 2.8mm 230cm - [id number] Implanted:Qty: 1 on 08/11/2020 by Anaid Powell, DO at ENDOSCOPY [facility] [employer] 09/15/2022 HX-202UR.A / / [id number] Clip Quick 2.8mm 230cm - [id number] Implanted:Qty: 1 on 08/11/2020 by Anaid Powell, DO at ENDOSCOPY [facility] [employer] 09/15/2022 HX-202UR.A / / [id number] Clip Quick 2.8mm 230cm - [id number] Implanted:Qty: 1 on 08/11/2020 by Anaid Powell DO at ENDOSCOPY [facility] [employer] 09/15/2022 HX-202UR.A / / [id number] Clip Quick 2.8mm 230cm - [id number] Implanted:Qty: 1 on 08/11/2020 by Anaid Powell DO at ENDOSCOPY [facility] [employer] 09/15/2022 HX-202UR.A / / [id number] documented as of this encounter Procedures Procedure Name Priority Date/Time Associated Diagnosis Comments OUTSIDE LAB-PT/INR Routine 02/14/2024 documented in this encounter Results * OUTSIDE LAB-PT/INR (02/14/2024) INR-OUTSIDE LAB 1.6 History Per Patient LABORATORY documented in this [...] and were consensually agreed upon. Care Teams Hospital Tray Service Worker Relationship Specialty Start Date End Date Anurag Mora MD [address] [place] [address], [place] [address] PCP - General Internal Medicine 05/06/21 documented as of this encounter"
--- OUTSIDE RECORDS SUMMARY | 2024-02-28 04:40 | External Medical Summary ---
Author Name Unknown Address Unknown Organization K09:[facility]ORY [facility] [place] [address] Laboratory Report Ordering Provider Test Date Status PHILIP SANTILLAN 02/11/2024 05:46:40 Final Warfarin Therapy
INR: 2 .0-3.0 conventional anticoagulation
INR: 2.5- 3.5 high intensity anticoagulation Observation Date Value Abnormality Reference (Units ) Status PT 02/11/2024 05:46:40 28.3 Above high normal 11 .6-15.2 (seconds) Final INR 02/11/2024 05:46:40 2.6 Above high normal 0. 8-1.2 Final Performing Location [facility] [place] [address]
--- OUTSIDE RECORDS SUMMARY | 2024-02-28 04:40 | External Medical Summary ---
Author Name Unknown Address Unknown Organization K09:LABORATORY [place] [address] Laboratory Report Ordering Provider Test Date Status PHILIP SANTILLAN 02/08/2024 05:49:11 Final Observation Date Value Abnormality Reference (Units ) Status BUN 02/08/2024 05:49:11 26 Above high normal 6-20 (mg/dL) Final Creatinine 02/08/2024 05:49:11 1.0 0.6-1.2 (mg/dL) Final Glomerular filtration rate/1.73 sq M.predicted [Volume Rate/Area] in Serum, Plasma or Blood by Creatinine-based formula (CKD-EPI) 02/08/2024 05:49:11 74 >=60 (mL/min) Final eGFR is calculated based on the CKD-EPI 2020 equation. Sodium 02/08/2024 05:49:11 140 135-146 (m mol/L) Final Potassium 02/08/2024 05:49:11 4.6 3.5-5.1 (m mol/L) Final Cl 02/08/2024 05:49:11 104 98-107 (mm ol/L) Final CO2 02/08/2024 05:49:11 27 22-32 (mmo l/L) Final Anion gap 02/08/2024 05:49:11 9 7-15 (mmol /L) Final Glucose 02/08/2024 05:49:11 102 70-120 (mg /dL) Final Calcium 02/08/2024 05:49:11 9.0 8.4-10.2 ( mg/dL) Final Performing Location LAB[facility]ATORY [place] [address]
--- OUTSIDE RECORDS SUMMARY | 2024-02-28 04:40 | External Medical Summary ---
Author Name Unknown Address Unknown Organization K0G:[facility]AT[facility] [address] [place] [address] Laboratory Report Ordering Provider Test Date Status PHILIP SANTILLAN 02/02/2024 05:35:00 Final Warfarin Therapy
INR: 2 .0-3.0 conventional anticoagulation
INR: 2.5- 3.5 high intensity anticoagulation Observation Date Value Abnormality Reference (Units ) Status PT 02/02/2024 05:35:00 14.9 11.6-15.2 (seconds) Final INR 02/02/2024 05:35:00 1.2 0.8-1.2 Final Performing Location LABORATORY [facility] [address] [place] [address]
--- OUTSIDE RECORDS SUMMARY | 2024-02-28 04:40 | External Medical Summary ---
Author Name Unknown Address Unknown Organization K09:[facility]ATORY [place] [address] Laboratory Report Ordering Provider Test Date Status PHILIP SANTILLAN 02/08/2024 05:49:11 Final Warfarin Therapy
INR: 2 .0-3.0 conventional anticoagulation
INR: 2.5- 3.5 high intensity anticoagulation Observation Date Value Abnormality Reference (Units ) Status PT 02/08/2024 05:49:11 25.5 Above high normal 11 .6-15.2 (seconds) Final INR 02/08/2024 05:49:11 2.3 Above high normal 0. 8-1.2 Final Performing Location [facility]ORY [place] [address]
--- OUTSIDE RECORDS SUMMARY | 2024-02-28 04:41 | External Medical Summary | Summary of Care ---
Author Name Unknown Organization [facility] Address [address] [place] [address] Phone [phone] Care Team Providers Care Safety Companion Name Role Phone Anurag Mora MD Primary Care Provider + Reason for Visit * Reason Comments Appointment Encounter Details Date Type Department Care Team (Late st Contact Info) Description 02/01/2024 6:10 PM EDT Pharmacy Pharmacy, [facility] [address] [address] Pharmacist1, [facility] [address] [facility] [place] [address] H/O ischemic multifocal posterior circulation stroke*; History of pulmonary embolism Allergies Active Allergy Reactions Criticality Noted Date Comments Deandre Inhibitors Cough Medium 05/25/2008 Propoxyphene N-Acetaminophen Nausea/vomiting Low 04/26/2010 Gabapentin Nausea/vomiting Low 04/10/2011 Omeprazole 12/05/2002 bad side effects documented as of this encounter (statuses as of 02/01/2024) Medications Medication Sig Dispensed Refills Start Date End Date Status FOLIC ACID TABS 1 MG ORIndications:Acute MA, anterior wall (HCC) 1 TABLET DAILY 30 [...] 10 cm every night at bedtime. Active Wing-Wheel Angel Culture CommunicationTouch Verio Flex System w/Device KitIndications:High blood sugar,Type 2 diabetes mellitus with hemoglobin A1c goal of less than 7.0% ([facility]) Use as directed. Use to test blood [...] in the morning. Active OneTouch Delica Plus [id number] :Type 2 diabetes mellitus with hemoglobin A1c goal of less than 7.0% ([facility]),High blood sugar USE TO CHECK GLUCOSE ONCE DAILY 100 Each 3 08/22/2023 Active OneTouch Verio In Vitro Strip (Glucose Blood)Indications:Ty pe 2 diabetes mellitus with hemoglobin A1c goal of less than 7.0% ([facility]),High blood sugar USE 1 STRIP TO CHECK [...] Oral Tablet (Coumadin)Indication s:PAF (paroxysmal atrial fibrillation) (HCC) TAKE 2 TABLETS BY MOUTH ON SUNDAY AND 1 TABLET ON OTHER DAYS OF THE WEEK OR DIRECTED BY [facility] 104 Tablet 2 11/22/2023 Active metFORMIN HCl 1000 MG Oral Tablet (Glucophage)Indicati ons:High blood sugar,Type 2 diabetes mellitus with hemoglobin A1c goal of less than 7.0% ([facility]) TAKE 1 TABLET BY MOUTH WITH BREAKFAST AND DINNER 180 Tablet 2 11/22/2023 Active Losartan Potassium 50 MG Oral Tablet (Cozaar)Indications: HTN, goal below 140/90,ASCVD (arteriosclerotic cardiovascular disease) TAKE 1 TABLET BY MOUTH TWICE DAILY 180 Tablet 3 11/22/2023 Active Additional Information Patient taking differently: QHS, Reported on 11/29/2023 documented as of this encounter (statuses as of 02/01/2024) Active Problems Problem Noted Date Diagnosed Date [...] as of this encounter (statuses as of 02/01/2024) Resolved Problems Problem Noted Date Diagnosed Date Resolved Date Sinus pause 07/26/2018 10/16/2018 History of malignant neoplasm of skin 05/02/2018 04/08/2019 History of migraine 05/02/2018 04/08/20 19 Cryptogenic stroke 01/21/2018 9 Anticoagulated on warfarin 01/21/2018 0 08/05/2021 Prediabetes 08/28/2017 06/30/2021 Overview: Per Prediabetes protocol #1 RLL 1.4 cm nodule 05/04/2011 12/01/2017 Overview: 08/2009 CT -- [id number] 11/2012 CT -- 11x8mm, f/u in 18 [...] surveillance.- tubular adenoma Migraine without aura 05/15/20052017 longterm current use of ant icoagulant therapy 07/08/2003 [...] as of this encounter (statuses as of 02/01/2024) Immunizations Name Administration Dates Next Due COVID-19 mRNA, LNP-s, No Pre serve, 2-Dose Series (Flooved) 04/13/2021,09/11/2020,08/21/2020 COVID-19, LNP-s, No Preserve , Cholo-sucrose, Ages 12+ (Flooved) 10/20/2021 Covid-19, Mrna, Lnp-s, Pf, B ivalent, 30 Mcg, IM, 12 yrs and above (Flooved) 03/29/2022 H1N1 2009 Influenza, IM 07/02/2009 Pneumococcal [...] as of this encounter Progress Notes * Jennifer Horan CPhT - 02/01/2024 9:59 AM EDT Patient Phone Numbers Left message on patients answering machine to schedule MTDM appointment for anticoagulation management. Clinic will follow up again in 1 week(s). Thank you, Jennifer Horan [place] Records Management Officer [facility] ([facility] 02/01/2024,9:59 AM documented in this encounter Plan of Treatment Upcoming Encounters Date Type Department Care Team (Late st Contact Info) Description 02/04/2024 10:40 AM EDT Office Visit General Internal Medicine [facility] [address] [place], [place] [address] Ernesto Orourke, DO [address] [place] [address] 02/08/2024 6:10 PM EDT Pharmacy Pharmacy, [facility] [address] [place] [address] Pharmacist1, [facility] [address] [facility] [place], [place] [address] 02/13/2024 3:30 PM EDT Cardiac Studies Card[facility] [address] [facility] [address] 02/19/2024 2:40 PM EDT Office Visit General Internal Medicine [facility] [address] [facility] [place] [address] Anurag Mora MD [address] [facility] [place], [place] [address] 03/04/2024 9:30 AM EDT Office Visit [facility] [address] [facility] [phone] Elena Cuevas CRNP [address] [facility] [address] 05/27/2024 8:15 AM EST Office Visit MOHS Surgery [facility] [address] [place], [place] [address] Jewell Pastor MD [address] [facility] [place], [place] [address] 06/23/2024 2:30 PM EST Office Visit Cardiology, [facility] [address] [facility] [place] [address] Juancho Nelson DO [address] [place] [address] 01/15/2025 1:30 PM EDT Office Visit Neurology [facility] [address] [facility] [place] [address] Evelyn Mcgill PA-C [address] [place] [address] Scheduled Procedures Name Priority Associated Diagnoses Date/Ti [...] this encounter Medical Devices Implanted Type Area Wired Music Operator Device Identifier Shelf Expiration Date Model / Serial / Lot Lens Intraoc 18.0 - [id number] - [id number] Implanted:Qty: 1 on 12/11/2017 by Bryan Alfaro MD at OR [facility] Right: Eye [employer] 07/15/2021 [id number] / [id number] / [id number] Clip Quick 2.8mm 230cm - [id number] Implanted:Qty: 1 on 08/11/2020 by Anaid Powell DO at ENDOSCOPY [facility] [employer] 09/15/2022 HX-202UR.A / / [id number] Clip Quick 2.8mm 230cm - [id number] Implanted:Qty: 1 on 08/11/2020 by Anaid Powell DO at ENDOSCOPY [facility] [employer] 09/15/2022 HX-202UR.A / / [id number] Clip Quick 2.8mm 230cm - [id number] Implanted:Qty: 1 on 08/11/2020 by Anaid Powell DO at ENDOSCOPY [facility] [employer] 09/15/2022 HX-202UR.A / / [id number] Clip Quick 2.8mm 230cm - [id number] Implanted:Qty: 1 on 08/11/2020 by Anaid Powell DO at ENDOSCOPY [facility] [employer] 09/15/2022 HX-202UR.A / / [id number] documented as of this encounter Visit Diagnoses [...] and were consensually agreed upon. Care Teams Safety Companion Relationship Specialty Start Date End Date Anurag Mora MD [address] [facility] [place] [address] PCP - General Internal Medicine 05/06/21 documented as of this encounter
[2024-02-28 06:29] LABS: Basophils # (auto) 0.02 K/uL (0.00-0.20); Basophils % (auto) 0.3 %; Eosinophils # (auto) 0.19 K/uL (0.00-0.50); Eosinophils % (auto) 2.9 %; Hematocrit (blood only) 38.6 % (42.0-52.0); Hemoglobin 12.6 g/dl (14.0-18.0); Immature Granulocytes # (auto) 0.02 K/uL (0.01-0.20); Immature Granulocytes % (auto) 0.3 %; Lymphocytes # (auto) 0.99 K/uL (1.20-3.40); Lymphocytes % (auto) 15.2 %; Mean Corpuscular Hemoglobin 30.9 pg (25.0-34.0); Mean Corpuscular Hgb Conc 32.6 g/dL (32.0-36.0); Mean Corpuscular Volume 94.6 fL (80.0-100.0); Mean Platelet Volume 10.3 fL (9.4-12.4); Monocytes % (auto) 10.7 %; Neutrophils % (auto) 70.6 %; Platelet Count 194 K/uL (130-400); RDW Coefficient of Variation 14.5 % (11.5-14.5); RDW Standard Deviation 50.1 fL (36.4-46.3); Red Blood Count 4.08 M/uL (4.70-6.10); White Blood Count 6.52 K/ul (4.8-10.8)
--- NOTE | 2024-02-28 06:44 | XRay Report ---
XR hip RT 2V w pelvis CLINICAL HISTORY: Right hip pain following fall. COMPARISON: Pelvis and right hip radiographs October 18, 2020. CTA of the abdomen and pelvis January 26. FINDINGS: Sacroiliac joints and symphysis pubis are intact. There are no acute fractures within the pelvis or hips. A bony excrescence arising from the lesser trochanter of the right femur indicates ol d avulsion injury. This is unchanged in appearance from CT of January 27, 2024. Moderate vascular calcif ication is incidentally noted. There is moderate right hip joint space narrowing with osteophytosis. IMPRESSION: 1. No acute fractures within the pelvis or hips. 2. Old avulsion injury of the lesser trochanter of the right femur, unchanged appearance since prior CT. 3. Moderate right hip osteoarthritis. ACT 112: Negative or not required by law. Electronically signed by: Osiel Gabriel M.D. 02/28/2024 6:43 AM
[2024-02-28 06:59] LABS: Prothrombin Time 20.4 Seconds (9.0-12.0)
--- NOTE | 2024-02-28 07:27 | XRay Report ---
XR chest 1V portable HISTORY: 83 years-old Male Fall, trauma acute chest pain status post trauma COMPARISON: CTA chest 01/29/2024 TECHNIQUE: AP view of the chest FINDINGS: A loop recorder device is noted. Cardiomegaly. The lungs appear generally clear. No pneumothorax or p leural effusion identified. The bones appear grossly intact. IMPRESSION: No acute process. ACT 112: Negative or not required by law. The above report was generated using voice recognition software. It may contain grammatical, syntax o r spelling errors. Electronically signed by: Juan Drake M.D. 02/28/2024 7:26 AM
[2024-02-28] MEDS: amLODIPine BESYLATE 5 MG TAB PO SCH (08:28)
[2024-02-28] MEDS: TAMSULOSIN HCL 0.4 MG CAP PO SCH (08:28)
[2024-02-28] MEDS: FOLIC ACID 1 MG TAB PO SCH (08:29)
[2024-02-28] MEDS: PANTOprazole 40 MG TAB PO SCH (08:29)
[2024-02-28] MEDS: METOPROLOL SUCC 25MG EXT REL TAB PO SCH (08:29)
[2024-02-28] MEDS: CYANOCOBALAMIN (B-12) 500 MCG TABLET PO SCH (08:29)
[2024-02-28] MEDS: METHENAMINE HIPPURATE 1 GM TAB PO SCH (08:29)
--- NOTE | 2024-02-28 08:43 | Orthopedic Consultation ---
Date of Consultation February 28, 2024 Assessment & Plan (1) Acute hip pain: X-ray and CT scan of the right hip obtained in the emergency department showed no sign of any acute fracture. There is an old fracture of the lesser trochanter. An MRI scan of the right hip is pending due to a mass of the iliops oas seen on CT. 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 He states that this has been an issue for several years. He states that previously he saw a surgeon in [place] but elected not to proceed with intervention. I advised the patient that he may benefit from an ultrasound- guided corticosteroid injection into his right hip joint, that can be done as outpatient at our office. Supervising Physician Co-Signing Physician Notes I, Dr. Mcdonough, saw and examined the patient. I discussed the management with my PA. I reviewed my PAs note and agree with the documented findings and attest to completing the substantive portion of medical decision making and plan of care I developed. Will continue to follow. Awaiting MRI. History of Present Illness Reason for Consultation: Right hip pain Requesting Physician: Wilbert Mcdonough MD Attending Physician: Rosita Moreland MD History of Present Illness This is an 83-year-old male seen in consultation after a fall. Patient states that he lost his balance and fell onto his right hip yesterday. He states that initially he was able to get up and ambulate but after sitting down for a period of time he was unable to bear weight on the right lower extremity. Patient states that a little over a month ago he was admitted for hematoma in the same leg which has since resolved. Patient localizes most of his pain to the groin area with any type of movement of his hip. He denies pain in any other areas of his body. He also denies chest pain, shortness of breath, fever, chills, sweats, numbness or tingling the right lower extremity. He denies nausea, vomiting, diarrhea or difficulty voiding. Patient made a trauma alert on arrival due to his warfarin use. Allergies Allergy/AdvReac Type Severity Reaction Status Date / Time propoxyphene Allergy Intermediate Hallucinati Verified 02/27/24 23:05 ng omeprazole Allergy Unknown Unknown Verified 02/27/24 23:05 ELINOR Inhibitors AdvReac Mild Cough Verified 02/27/24 23:05 gabapentin AdvReac Mild Nausea Verified 02/27/24 23:05 Home Medications Medication Instructions Recorded Confirmed Type cetirizine 10 mg tablet (Zyrtec) 10 mg PO PM 08/14/19 02/27/24 History folic acid 1 mg tablet 1 mg PO QAM 08/14/19 02/27/24 History losartan 50 mg tablet 50 mg PO PM 08/14/19 02/27/24 History metoprolol succinate 25 mg 25 mg PO QAM 08/14/19 02/27/24 History tablet,extended release 24 hr nitroglycerin 0.4 mg sublingual 0.4 mg sublingual UD PRN Chest Pain 08/14/19 02/27/24 History tablet pantoprazole 40 mg tablet,delayed 40 mg PO QAM 08/14/19 02/27/24 History release polyethylene glycol 3350 17 17 g PO DAILY PRN Constipation 08/14/19 02/27/24 History gram/dose oral powder (Miralax) rosuvastatin 20 mg tablet 20 mg PO PM 08/14/19 02/27/24 History cholecalciferol (vitamin D3) 25 25 mcg PO PM 05/22/20 02/27/24 History mcg (1,000 unit) tablet (Vitamin D3) lorazepam 1 mg tablet 0.5 mg PO ONCE HS PRN Insomnia 05/22/20 02/27/24 History ropinirole 0.25 mg tablet 0.25 mg PO HS 03/11/21 02/27/24 History ferrous sulfate 325 mg (65 mg 325 mg PO QPM 12/05/21 02/27/24 History iron) tablet (Iron (ferrous sulfate)) psyllium husk 3.4 gram/5.4 gram 1 tsp PO DAILY PRN Constipation 12/05/21 02/27/24 History oral powder (Metamucil) metformin 1,000 mg tablet 1,000 mg PO BID 04/08/22 02/27/24 History warfarin 2.5 mg tablet 5 mg PO 2XWK 06/21/22 02/27/24 History methenamine hippurate 1 gram tablet 1 g PO BID #180 tabs 12/20/22 02/27/24 Rx amlodipine 2.5 mg tablet 2.5 mg PO QAM 01/26/24 02/27/24 History calcipotriene 0.005 % topical cream 1 applic topical .BID UD 01/26/24 02/27/24 History cyanocobalamin (vitamin B-12) 1,000 mcg PO DAILY 01/26/24 02/27/24 History 1,000 mcg tablet (Vitamin B-12) duloxetine 60 mg capsule,delayed 60 mg PO QPM 01/26/24 02/27/24 History release dutasteride 0.5 mg capsule 0.5 mg PO HS 01/26/24 02/27/24 History tamsulosin 0.4 mg capsule 0.4 mg PO DAILY 02/27/24 02/27/24 History warfarin 2.5 mg tablet 2.5 mg PO 5XWK 02/27/24 02/27/24 History Patient History Medical History Diabetes mellitus, type 2 On anticoagulant therapy warfarin daily Hard of hearing Peripheral neuropathy bilat legs Restless leg syndrome Urinary retention on occasion, meds help per pt Stroke 2017 > no residual effects > [facility] > was in therapy for reading for a while, all better now > doesn't see neuro anymore Myocardial Infarction early Pancreatic cyst just monitoring PAF (paroxysmal atrial fibrillation) Elevated INR T2DM (type 2 diabetes mellitus) Actinic keratosis 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 last checked around October 2020 > unsure of size Hypertension Coronary artery disease follows with CVA (cerebral vascular accident) Surgical History History of cardiac cath several > late 1989's early , last one 2007> no stents any time History of tooth extraction History of esophagogastroduodenoscopy (EGD) History of colonoscopy last 12/09/21 @ [facility] History of cataract surgery right Hx of tonsillectomy Family History Father Prostate cancer Diabetes Heart disease Hypertension Other No family history of adverse response to anesthesia Social History Smoking Status: Never smoker Second Hand Exposure: No; Do You Dip or Chew Tobacco: No; Hx Alcohol Use: No Hx Substance Use: No Preferred Language: Italian Communication Ability: Effective Public Relations Coordinator Required: No Beliefs That Will Affect Care: None marital status: Current Living Situation: Spouse Current Living Situation Comment: Lives with and son current occupational status: retired Other Information That Helps Us Care for You: No Feels Safe at Home: Yes Safety Concerns: Feels Safe At This Time Diet: regular Assistive Devices: Cane and CPAP Review of Systems Review of Systems: All systems reviewed & are unremarkable except as noted in Subjective Physical Exam Physical Exam: Right hip: Patient experiences tenderness to palpation in the groin area. He has referred pain to this area with a log roll testing, flexion to 75 degrees, internal rotation to 0 degrees and external rotation to 30 degrees. Patient is able to perform an active straight leg raise test and actively dorsi and plantarflex his foot with some referred pain to the groin. There is no edema, erythema, ecchymosis or palpable deformity appreciated. Patient's peripheral pulses are 2+. He is neurovascularly intact in the right lower extremity. Results & Data Vital Signs (Past 12 Hours) Vital Signs Temp Pulse Pulse Pulse Resp BP BP 02/28/24 07:15 02/28/24 07:10 37.0 C 56 L 16 120/67 02/27/24 23:40 02/27/24 23:40 36.6 C 62 18 165/79 H 02/27/24 23:37 36.6 C 62 18 165/79 H 02/27/24 23:14 63 18 131/90 02/27/24 23:00 71 18 145/93 H 02/27/24 22:00 75 18 149/70 H 02/27/24 21:00 72 18 166/94 H 02/27/24 20:40 80 Pulse Ox O2 Del Method 02/28/24 07:15 Room Air 02/28/24 07:10 93 Room Air 02/27/24 23:40 Room Air 02/27/24 23:40 98 Room Air 02/27/24 23:37 98 Room Air 02/27/24 23:14 96 Room Air 02/27/24 23:00 96 Room Air 02/27/24 22:00 96 Room Air 02/27/24 21:00 97 Room Air 02/27/24 20:40 Diagnostic Findings Laboratory Results WBC 6.52 K/ul (4.8-10.8) 02/28/24 05:46 RBC 4.08 M/uL (4.70-6.10) L 02/28/24 05:46 Hgb 12.6 g/dl (14.0-18.0) L 02/28/24 05:46 Hct 38.6 % (42.0-52.0) L 02/28/24 05:46 MCV 94.6 fL (80.0-100.0) 02/28/24 05:46 MCH 30.9 pg (25.0-34.0) 02/28/24 05:46 MCHC 32.6 g/dL (32.0-36.0) 02/28/24 05:46 RDW Std Deviation 50.1 fL (36.4-46.3) H 02/28/24 05:46 RDW Coeff of Argelia 14.5 % (11.5-14.5) 02/28/24 05:46 Plt Count 194 K/uL (130-400) 02/28/24 05:46 MPV 10.3 fL (9.4-12.4) 02/28/24 05:46 Immature Gran % (Auto) 0.3 % 02/28/24 05:46 Neut % (Auto) 70.6 % 02/28/24 05:46 Lymph % (Auto) 15.2 % 02/28/24 05:46 [place] % (Auto) 10.7 % 02/28/24 05:46 Eos % (Auto) 2.9 % 02/28/24 05:46 Baso % (Auto) 0.3 % 02/28/24 05:46 Neut # (Auto) 4.60 K/uL (1.40-6.50) 02/28/24 05:46 Lymph # (Auto) 0.99 K/uL (1.20-3.40) L 02/28/24 05:46 [place]y # (Auto) 0.70 K/uL (0.11-0.59) H 02/28/24 05:46 Eos # (Auto) 0.19 K/uL (0.00-0.50) 02/28/24 05:46 Baso # (Auto) 0.02 K/uL (0.00-0.20) 02/28/24 05:46 Immature Gran # (Auto) 0.02 K/uL (0.01-0.20) 02/28/24 05:46 PT 20.4 Seconds (9.0-12.0) H 02/28/24 05:46 INR 2.0 (0.9-1.1) H 02/28/24 05:46 Sodium 137 mmol/L (136-145) 02/27/24 20:24 Potassium 4.1 mmol/L (3.5-5.1) 02/27/24 20:24 Chloride 102 mmol/L (98-107) 02/27/24 20:24 Carbon Dioxide 27 mmol/L (21-32) 02/27/24 20:24 Anion Gap 8 (3-11) 02/27/24 20:24 BUN 12 mg/dl (6-23) 02/27/24 20:24 Creatinine 0.75 mg/dl (0.6-1.4) 02/27/24 20:24 Est Cr Clr Drug Dosing 91.4 ml/min 02/27/24 20:24 Est GFR ( Amer) 99.7 ml/min 02/27/24 20:24 Est GFR (Non-Af Amer) 86.0 ml/min 02/27/24 20:24 BUN/Creatinine Ratio 16.0 (10-20) 02/27/24 20:24 Glucose 106 mg/dl (70-99(Fasting)) H 02/27/24 20:24 POC Glucose 90 mg/dl (70-99) 02/28/24 07:32 Calcium 9.6 mg/dl (8.6-10.3) 02/27/24 20:24 Total Creatine Kinase 38 U/L (30-223) 02/27/24 20:24 Impressions Chest X-Ray 02/27/24 20:34 XR chest 1V portable HISTORY: 83 years-old Male Fall, trauma acute chest pain status post trauma COMPARISON: CTA chest 01/29/2024 TECHNIQUE: AP view of the chest FINDINGS: A loop recorder device is noted. Cardiomegaly. The lungs appear generally clear. No pneumothorax or pleural effusion identified. The bones appear grossly intact. IMPRESSION: No acute process. ACT 112: Negative or not required by law. The above report was generated using voice recognition software. It may contain grammatical, syntax or spelling errors. Electronically signed by: Juan Drake M.D. 02/28/2024 7:26 AM Hip/Pelvis X-Ray 02/27/24 20:34 XR hip RT 2V w pelvis CLINICAL HISTORY: Right hip pain following fall. COMPARISON: Pelvis and right hip radiographs October 18, 2020. CTA of the abdomen and pelvis January 27, 2024. FINDINGS: Sacroiliac joints and symphysis pubis are intact. There are no acute fractures within the pelvis or hips. A bony excrescence arising from the lesser trochanter of the right femur indicates old avulsion injury. This is unchanged in appearance from CT of January 27, 2024. Moderate vascular calcification is incidentally noted. There is moderate right hip joint space narrowing with osteophytosis. IMPRESSION: 1. No acute fractures within the pelvis or hips. 2. Old avulsion injury of the lesser trochanter of the right femur, unchanged appearance since prior CT. 3. Moderate right hip osteoarthritis. ACT 112: Negative or not required by law. Electronically signed by: Osiel Gabriel M.D. 02/28/2024 6:[address] 02/27/24 22:32 Exam(s): CT EXTREMITY RIGHT LOWER Without Contrast EXAM: CT Right Lower Extremity Without Intravenous Contrast CLINICAL HISTORY: Reason for exam: pain, coumadin. TECHNIQUE: Axial computed tomography images of the right lower extremity without intravenous contrast. CTDI is 16.49 mGy and DLP is 1324.74 mGy-cm. Automated exposure control was utilized for the study. A dose lowering technique was utilized adhering to the principles of ALARA. COMPARISON: No relevant prior studies available. FINDINGS: Bones/joints: Unremarkable. No acute fracture. No dislocation. Soft tissues: Unremarkable. IMPRESSION: No femur fracture. Refer to the concomitant hip CT scan, where additional findings are described. Electronically signed by: Ranjith Lara MD 02/28/24 02:[address] 02/27/24 22:32 Exam(s): CT RIGHT HIP Without Contrast EXAM: CT Right Lower Extremity Without Intravenous Contrast, Hip CLINICAL HISTORY: Reason for exam: pain, coumadin. TECHNIQUE: Axial computed tomography images of the right hip without intravenous contrast. CTDI is 16.49 mGy and DLP is 1324.74 mGy-cm. Automated exposure control was utilized for the study. A dose lowering technique was utilized adhering to the principles of ALARA. COMPARISON: No relevant prior studies available. FINDINGS: Bones/joints: Diffuse osseous demineralization. No acute fracture or subluxation. Soft tissues: Masslike calcification throughout the iliopsoas, concerning for severe, chronic iliopsoas bursitis. Heterotopic ossification at the lesser trochanter. IMPRESSION: 1. No acute fracture or subluxation. 2. 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 Recommend MRI for further evaluation. Electronically signed by: Ranjith Lara MD 02/28/24 02:34 AM
--- NOTE | 2024-02-28 14:51 | Hospitalist Progress Note ---
Date of Service February 28, 2024 Assessment & Plan (1) Acute hip pain: Plan: Mr. Morfin is an 83yoM with PMHx significant for CAD status post stent, hypertension, hyperlipidemia, hx PAF/hx PE/recurrent CVA/cryptogenic stroke on Coumadin, PVD (thoracic aortic aneurysm),ABDULLAHI on CPAP, BPH/chronic UTI on chronic methenamine Rx, DM2 on oral medications, chronic back pain and recent retroperitoneal bleed who is now admitted s/p fall on right hip. Patient high risk for recurrent VTE/cryptogenic CVA therefore warfarin was continued last admission (02/02/2024) after hgb stabilized. Patient at rehab when fall sustained. Pain progressed limiting weightbearing ability. Awaiting final PT/OT and ortho recs, will reassess ability to weightbear in am and disucss with Ortho if no improvement. #Mechanical Fall #Acute right hip pain #Abnormal CT hip No fracture noted on imaging, severe pain limiting ambulation CT results reviewed: noed severe chronic iliopsoas burstitis MRI ordered, delayed 2/2 technical issue Ortho consulted: recommended OP follow up for injection PT/OT Pain management #Sinus Tachycardia EKG sinus with first degree AV block -Continue po home metoprolol Continue to monitor on telemetry #HTN #hx CAD status post stent/PVD Stable Continue losartan 40mg qpm #hyperlipidemia on statin Rx #CIC zuniga in place 2/2 pain #Chronic anticoagulation #hx PE #recurrent CVA #cryptogenic stroke continue coumadin INR in am #Chronic normocytic Anemia #History of Retroperitoneal Bleed c/b R iliopsoas Hematoma #b12 deficiency Continue home folate, iron and b12 supplements- b2 supplement increased to 2000mcg daily Pt currently hemodynamically stable #BPH/chronic UTI on chronic methenamine Rx continue tamsulosin/finasteride #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 Diet: HH/DMII DVT prophylaxis: warfarin Dispo: PT/OT:rehab Admission and Anticipated Discharge Date Admission Date: February 27, 2024 Subjective Admitted overnight Report pain limiting ability to bear weight on RLE, in hip/groin Denies any other acute concerns, states fall was an "accident" and denies any precipitating factors No chest pain, nausea, vomiting or other concerns Physical Exam Constitutional: WD/WN, vitals as above Respiratory: normal respiratory effort, lungs clear to auscultation Cardiovascular: RRR, no murmur, no edema Musculoskeletal: pain with PROM on manipulation/movement of right hip joint Results & Data Results & Data Vital Signs (Past 12 Hours) Vital Signs Temp Pulse Resp BP Pulse Ox O2 Del Method 02/28/24 14:48 36.8 C 105 H 16 118/63 96 Room Air 02/28/24 07:15 Room Air 02/28/24 07:10 37.0 C 56 L 16 120/67 93 Room Air Laboratory Results Short CBC 02/27/24 02/28/24 Range/Units 20:24 05:46 WBC 7.88 6.52 (4.8-10.8) K/ul Hgb 14.0 12.6 L (14.0-18.0) g/dl Hct 42.2 38.6 L (42.0-52.0) % Plt Count 221 194 (130-400) K/uL BMP 02/27/24 20:24 Sodium 137 Potassium 4.1 Chloride 102 Carbon Dioxide 27 BUN 12 Creatinine 0.75 Glucose 106 H Calcium 9.6 Cardiac Enzymes 02/27/24 Range/Units 20:24 Total Creatine Kinase 38 (30-223) U/L Medications Administered Home Medications Medication Instructions Recorded Confirmed Last Taken cetirizine 10 mg tablet (Zyrtec) 10 mg PO PM 08/14/19 02/27/24 12/13/22 folic acid 1 mg tablet 1 mg PO QAM 08/14/19 02/27/24 12/14/22 06:00 losartan 50 mg tablet 50 mg PO PM 08/14/19 02/27/24 12/13/22 metoprolol succinate 25 mg 25 mg PO QAM 08/14/19 02/27/24 12/14/22 06:00 tablet,extended release 24 hr nitroglycerin 0.4 mg sublingual 0.4 mg sublingual UD PRN Chest Pain 08/14/19 02/27/24 Unknown tablet pantoprazole 40 mg tablet,delayed 40 mg PO QAM 08/14/19 02/27/24 12/14/22 06:00 release polyethylene glycol 3350 17 17 g PO DAILY PRN Constipation 08/14/19 02/27/24 12/09/21 gram/dose oral powder (Miralax) rosuvastatin 20 mg tablet 20 mg PO PM 08/14/19 02/27/24 12/13/22 cholecalciferol (vitamin D3) 25 25 mcg PO PM 05/22/20 02/27/24 12/13/22 mcg (1,000 unit) tablet (Vitamin D3) lorazepam 1 mg tablet 0.5 mg PO ONCE HS PRN Insomnia 05/22/20 02/27/24 03/21/21 ropinirole 0.25 mg tablet 0.25 mg PO HS 03/11/21 02/27/24 12/13/22 ferrous sulfate 325 mg (65 mg 325 mg PO QPM 12/05/21 02/27/24 12/11/22 iron) tablet (Iron (ferrous sulfate)) psyllium husk 3.4 gram/5.4 gram 1 tsp PO DAILY PRN Constipation 12/05/21 02/27/24 12/01/21 oral powder (Metamucil) metformin 1,000 mg tablet 1,000 mg PO BID 04/08/22 02/27/24 12/14/22 06:00 warfarin 2.5 mg tablet 5 mg PO 2XWK 06/21/22 02/27/24 12/08/22 methenamine hippurate 1 gram tablet 1 g PO BID #180 tabs 12/20/22 02/27/24 Unknown amlodipine 2.5 mg tablet 2.5 mg PO QAM 01/26/24 02/27/24 Unknown calcipotriene 0.005 % topical cream 1 applic topical .BID UD 01/26/24 02/27/24 Unknown cyanocobalamin (vitamin B-12) 1,000 mcg PO DAILY 01/26/24 02/27/24 Unknown 1,000 mcg tablet (Vitamin B-12) duloxetine 60 mg capsule,delayed 60 mg PO QPM 01/26/24 02/27/24 Unknown release dutasteride 0.5 mg capsule 0.5 mg PO HS 01/26/24 02/27/24 Unknown tamsulosin 0.4 mg capsule 0.4 mg PO DAILY 02/27/24 02/27/24 Unknown warfarin 2.5 mg tablet 2.5 mg PO 5XWK 02/27/24 02/27/24 Unknown Active Medications Generic Name Dose Route Start Last Admin Trade Name Martni PRN Reason Stop Dose Admin Amlodipine Besylate 2.5 mg 02/28/24 09:00 02/28/24 08:28 Amlodipine Besylate 5 Mg Tab PO 03/29/24 08:59 2.5 mg QAM MIRANDA Administration Cyanocobalamin 1,000 mcg 02/28/24 09:00 02/28/24 08:29 Cyanocobalamin (B-12) 500 Mcg Tablet PO 03/29/24 08:59 1,000 mcg DAILY MIRANDA Administration Folic Acid 1 mg 02/28/24 09:00 02/28/24 08:29 Folic Acid 1 Mg Tab PO 03/29/24 08:59 1 mg QAM MIRANDA Administration Insulin Aspart 0 units 02/28/24 00:00 02/28/24 12:19 Insulin Aspart Per Unit Charge SC 03/29/24 00:00 2 units ACHS MIRANDA Administration Methenamine Hippurate 1 gm 02/28/24 09:00 02/28/24 08:29 Methenamine Hippurate 1 Gm Tab PO 03/29/24 08:59 1 gm BID MIRANDA Administration Metoprolol Succinate 25 mg 02/28/24 09:00 02/28/24 08:29 Metoprolol Succ 25mg Ext Rel Tab PO 03/29/24 08:59 Not Given QAM MIRANDA Pantoprazole Sodium 40 mg 02/28/24 09:00 02/28/24 08:29 Pantoprazole 40 Mg Tab PO 03/29/24 08:59 40 mg QAM MIRANDA Administration Tamsulosin HCl 0.4 mg 02/28/24 09:00 02/28/24 08:28 Tamsulosin Hcl 0.4 Mg Cap PO 03/29/24 08:59 0.4 mg DAILY MIRANDA Administration Tramadol HCl 25 - 50 mg 02/27/24 22:36 02/28/24 11:31 Tramadol Hcl 50 Mg Tablet PO 03/28/24 22:35 25 mg Q4H PRN Administration Pain
[2024-02-28] MEDS: WARFARIN SOD 5 MG TAB PO SCH (16:43)
[2024-02-28] MEDS: DICLOFENAC SOD 1% GEL 100 GM TUBE EXT SCH (16:44)
[2024-02-28] MEDS: FERROUS SULFATE 325 MG TAB PO SCH (21:19)
[2024-02-28] MEDS: DULoxetine HCL 60 MG CAP PO SCH (21:19)
[2024-02-28] MEDS: LOSARTAN POTASSIUM 50 MG TAB PO SCH (21:19)
[2024-02-28] MEDS: CETIRIZINE HCL 10 MG TABLET PO SCH (21:19)
[2024-02-28] MEDS: rOPINIRole HCL 0.25 MG TABLET PO SCH (21:19)
[2024-02-28] MEDS: ROSUVASTATIN CALCIUM 20 MG TAB PO SCH (21:19)
[2024-02-28] MEDS: FINASTERIDE 5 MG TAB PO SCH (21:20)
[2024-02-29 07:03] LABS: Hematocrit (blood only) 39.6 % (42.0-52.0); Hemoglobin 13.1 g/dl (14.0-18.0); Mean Corpuscular Hemoglobin 31.3 pg (25.0-34.0); Mean Corpuscular Hgb Conc 33.1 g/dL (32.0-36.0); Mean Corpuscular Volume 94.7 fL (80.0-100.0); Mean Platelet Volume 9.8 fL (9.4-12.4); Platelet Count 187 K/uL (130-400); RDW Coefficient of Variation 14.6 % (11.5-14.5); RDW Standard Deviation 51.5 fL (36.4-46.3); Red Blood Count 4.18 M/uL (4.70-6.10)
[2024-02-29 07:31] VITALS: TEMP 98.1
[2024-02-29 07:33] LABS: BUN Creatinine Ratio 22.6 (10-20); Calcium 8.6 mg/dl (8.6-10.3); Creatinine Clr Calc Pharmacy 80.9 ml/min; Est GFR (African American) 95.2 ml/min; Est GFR (Non-African American) 82.1 ml/min
[2024-02-29 07:37] LABS: INR 1.8 (0.9-1.1); Prothrombin Time 18.8 Seconds (9.0-12.0)
--- NOTE | 2024-02-29 10:43 | Orthopedic Progress Note ---
Date of Service February 29, 2024 Assessment & Plan (1) Acute hip pain: Plan: Patient has osteoarthritis of his right hip. This has most likely advanced over the last few years. He states that he has seen Dr. Israel in the past for this. At that time is just mild. He also has iliopsoas bursitis confirmed on a CT scan. No evidence of fractures. He can be out of bed, weight-bear as tolerated with the assistance of a walker if needed. He can also transition to a cane, which ever he is safest with. I explained to him that he will continue to have physical therapy while he is here. They are helpful in determining whether he can go home or would need an inpatient rehab or [facility] facility for short period of time. He states that he would be willing to go home with [facility] and PT is arranged for them to come to his home. He can follow-up as an outpatient with [facility] orthopedics or Dr. Israel. He may benefit from an ultrasound-guided right hip intra-articular injection of cortisone but that would be need to be done as an outpatient. If his symptoms persist we could also have him see Dr. Jackson or Dr. Mckinney to discuss total hip arthroplasty. He is in agreement and understands with the plan. Will sign off for now. Admission and Anticipated Discharge Date Admission Date: February 27, 2024 Supervising Physician Co-Signing Physician Notes I, Dr. Mcdonough, saw and examined the patient. I discussed the management with my PA. I reviewed my PAs note and agree with the documented findings and attest to completing the substantive portion of medical decision making and plan of care I developed. Subjective Patient states that they are talking about sending him home. He is little concerned about being able to do that on his own. Has not been able to walk well here. He is only had a couple sessions with physical therapy. He is using a walker and is able to walk a little bit down the [place]. He states that his hip pain has continued. Most of his pain is in his groin and down into the anterior aspect of his thigh. Physical Exam Musculoskeletal: Exam of his right lower extremity: He has no edema. No erythema. He is nontender the foot, ankle, lower leg or thigh or knee. He has pain with attempting to straight leg raise or even with logrolling of his right hip. Mild ecchymosis on the anterior medial aspect of his thigh which is nontender. No knee effusion. Tolerates full range of motion normal strength of the knee and ankle. Distal pulses are 1+. Sensation is normal throughout the right lower extremity. Results & Data Vital Signs (Past 12 Hours) Vital Signs Temp Pulse Resp BP Pulse Ox O2 Del Method 02/29/24 07:30 Room Air 02/29/24 07:30 36.7 C 73 18 145/89 H 94 Room Air
--- NOTE | 2024-02-29 12:25 | Discharge Summary ---
Discharge Summary Date of Service February 29, 2024 Principal Dx & Hospital Course #1 = Principal Diagnosis (1) Acute hip pain: Mr. Morfin is an 83yoM with PMHx significant for CAD status post stent, hypertension, hyperlipidemia, hx PAF/hx PE/recurrent CVA/cryptogenic stroke on Coumadin, PVD (thoracic aortic aneurysm),ABDULLAHI on CPAP, BPH/chronic UTI on chronic methenamine Rx, DM2 on oral medications, chronic back pain and recent retroperitoneal bleed who is now admitted s/p fall on right hip. Patient high risk for recurrent VTE/cryptogenic CVA therefore warfarin was continued last admission (02/02/2024) after hgb stabilized. Patient at rehab when fall sustained. Pain progressed limiting weightbearing ability. Patient able to finally bear weigh on RLE the evening of 02/27 and able to work with PT. Determined that MRI can await for OP follow up with Ortho. Plan for discharge to rehab. Patient verbalized understanding and eager to establish follow up with Ortho for further hip intervention if necessary as OP. #Mechanical Fall #Acute right hip pain #Abnormal CT hip No fracture noted on imaging, severe pain limiting ambulation CT results reviewed: noed severe chronic iliopsoas burstitis MRI ordered, delayed 2/2 technical issue Ortho consulted: recommended OP follow up for injection PT/OT Pain management: topical voltaren, tylenol and tramadol D/C to Rehab #Sinus Tachycardia EKG sinus with first degree AV block -Continue po home metoprolol #HTN #hx CAD status post stent/PVD Stable Continue losartan 40mg qpm #hyperlipidemia on statin Rx #CIC continue home CIC #Chronic anticoagulation #hx PE #recurrent CVA #cryptogenic stroke continue coumadin #Chronic normocytic Anemia #History of Retroperitoneal Bleed c/b R iliopsoas Hematoma #b12 deficiency Continue home folate, iron and b12 supplements Pt currently hemodynamically stable #BPH/chronic UTI on chronic methenamine Rx continue tamsulosin/finasteride #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 Notes For Next Care Provider Recommend OP MRI of right hip Medication Changes From Visit None Admission HPI Per Admitting Provider History obtained from the patient and records. 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 Patient Coumadin resumed on discharge due to history of cryptogenic strokes. Hematology recommended DOAC Rx (over Coumadin) given absence of interaction with antibiotics. Patient declined recommendation due to prohibitive cost of DOAC Rx. Hemoglobin 10.7 at time of discharge. Patient leg gave out while walking in his garage this afternoon. No head trauma, no chest pain, no SOB, no LOC. Able to get up despite achy right hip pain. Worsening right hip pain after fall. MEDICAL HISTORY: As above. SURGERIES: back surgery, TURP, cataract surgery FAMILY HISTORY:Dementia, breast cancer, colon cancer, DM, heart disease, skin cancer PERSONAL AND SOCIAL HISTORY: Nonsmoker, no ETOH intake. 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 Admission Exam Per Admitting Provider GENERAL: Comfortable, pleasant, slightly hard of hearing, no respiratory distress SKIN: Pallor, warm HEENT: Alopecia, pale palpebral conjunctivae, no ptosis, moist buccal mucosa NECK : Supple, no tenderness CHEST : CTA, no tenderness HEART : RRR, no obvious murmurs ABDOMEN: Some distention, nontender EXTREMITIES : Right hip/right thigh tenderness, no other conspicuous deformities noted NEUROLOGIC : Coherent, no facial asymmetry, slightly hard of hearing, gait and stance not assessed Discharge Exam Constitutional WD/WN, vitals as above Respiratory normal respiratory effort, lungs clear to auscultation Cardiovascular RRR, no murmur, no edema Updated Medication List Medication Instructions Recorded Confirmed Type cetirizine 10 mg tablet (Zyrtec) 10 mg PO PM 08/14/19 02/27/24 History folic acid 1 mg tablet 1 mg PO QAM 08/14/19 02/27/24 History losartan 50 mg tablet 50 mg PO PM 08/14/19 02/27/24 History metoprolol succinate 25 mg 25 mg PO QAM 08/14/19 02/27/24 History tablet,extended release 24 hr nitroglycerin 0.4 mg sublingual 0.4 mg sublingual UD PRN Chest Pain 08/14/19 02/27/24 History tablet pantoprazole 40 mg tablet,delayed 40 mg PO QAM 08/14/19 02/27/24 History release polyethylene glycol 3350 17 17 g PO DAILY PRN Constipation 08/14/19 02/27/24 History gram/dose oral powder (Miralax) rosuvastatin 20 mg tablet 20 mg PO PM 08/14/19 02/27/24 History cholecalciferol (vitamin D3) 25 25 mcg PO PM 05/22/20 02/27/24 History mcg (1,000 unit) tablet (Vitamin D3) lorazepam 1 mg tablet 0.5 mg PO ONCE HS PRN Insomnia 05/22/20 02/27/24 History ropinirole 0.25 mg tablet 0.25 mg PO HS 03/11/21 02/27/24 History ferrous sulfate 325 mg (65 mg 325 mg PO QPM 12/05/21 02/27/24 History iron) tablet (Iron (ferrous sulfate)) psyllium husk 3.4 gram/5.4 gram 1 tsp PO DAILY PRN Constipation 12/05/21 02/27/24 History oral powder (Metamucil) metformin 1,000 mg tablet 1,000 mg PO BID 04/08/22 02/27/24 History warfarin 2.5 mg tablet 5 mg PO 2XWK 06/21/22 02/27/24 History methenamine hippurate 1 gram tablet 1 g PO BID #180 tabs 12/20/22 02/27/24 Rx amlodipine 2.5 mg tablet 2.5 mg PO QAM 01/26/24 02/27/24 History calcipotriene 0.005 % topical cream 1 applic topical .BID UD 01/26/24 02/27/24 History cyanocobalamin (vitamin B-12) 1,000 mcg PO DAILY 01/26/24 02/27/24 History 1,000 mcg tablet (Vitamin B-12) duloxetine 60 mg capsule,delayed 60 mg PO QPM 01/26/24 02/27/24 History release dutasteride 0.5 mg capsule 0.5 mg PO HS 01/26/24 02/27/24 History tamsulosin 0.4 mg capsule 0.4 mg PO DAILY 02/27/24 02/27/24 History warfarin 2.5 mg tablet 2.5 mg PO 5XWK 02/27/24 02/27/24 History acetaminophen 325 mg tablet 650 mg (2 x 325 mg) PO QID PRN 02/29/24 Rx mild pain (scale score 1-4) #0 tabs diclofenac sodium 1 % topical gel 4 g EXT Q8H #0 grams 02/29/24 Rx (Voltaren Arthritis Pain) tramadol 50 mg tablet 25 - 50 mg (0.5 - 1 x 50 mg) PO 02/29/24 Rx Q4H PRN #0 tabs Hospital Stay Data Consultations 02/28/24 07:34 Consult Orthopedic Surgery Routine Diagnostic Imagining Performed 02/27/24 22:32 CT femur RT wo con Stat CT hip RT wo con Stat Discharge Instructions Given to Patient (Per Discharging Provider) You were admitted for fall and noted to have worsening pain. Ortho evaluated you and felt this was likely an exacerbation of severe osetoarthritis. You will need to continue with rehab and follow up as an outpatient with Orthopedics. It is recommended you undergo MRI of hip as an outpatient Please continue the use of the following: Acetaminophen 650mg every 6-8 hours for mild pain Tramadol 25 to 50mg every 4 hours for moderate to severe pain Please use topical Voltaren gel on right hip every 8 hours for additional analgesia Total Time Total Time Spent Total Time Spent (In Minutes): 35
[2024-02-29 12:51] VITALS: BP 146/78; PULSE 72; RESP 20; O2SAT 96
--- NOTE | 2024-02-29 15:20 | Electrocardiogram Report ---
Test Reason : Blood Pressure : */* mmHG Vent. Rate : 69 BPM Atrial Rate : 69 BPM P-R Int : 244 ms QRS Dur : 138 ms QT Int : 402 ms P-R-T Axes : 67 -44 -36 degrees QTcB Int : 430 ms Sinus rhythm with 1st degree A-V block Left axis deviation Non-specific intra-ventricular conduction block Minimal voltage criteria for LVH, may be normal variant Abnormal ECG When compared with ECG of 29-Jan-2024 17:58, Premature ventricular complexes are no longer Present Vent. rate has decreased by 41 bpm T wave inversion now evident in Inferior leads Nonspecific T wave abnormality, improved in Lateral leads Confirmed by Jairo Rubin ([id number]) on 02/29/2024 3:20:23 PM Referred By: REFERRED SELF Confirmed By: Jairo Rubin
[2024-02-29] MEDS ORDERED: WARFARIN SOD 2.5 MG TAB PO SCH (16:00)
== END 2024-02-29 17:06 ==
LOC: 3N 20:18 → ED 20:18 → 3N 23:14

== ENCOUNTER 2024-04-11 11:39 | Inpatient (IN) ==
[2024-04-11 12:27] LABS: Basophils # (auto) 0.02 K/uL (0.00-0.20); Basophils % (auto) 0.3 %; Eosinophils # (auto) 0.09 K/uL (0.00-0.50); Eosinophils % (auto) 1.2 %; Hematocrit (blood only) 41.9 % (42.0-52.0); Hemoglobin 13.8 g/dl (14.0-18.0); Immature Granulocytes # (auto) 0.05 K/uL (0.01-0.20); Immature Granulocytes % (auto) 0.7 %; Lymphocytes # (auto) 0.97 K/uL (1.20-3.40); Lymphocytes % (auto) 12.8 %; Mean Corpuscular Hemoglobin 30.3 pg (25.0-34.0); Mean Corpuscular Hgb Conc 32.9 g/dL (32.0-36.0); Mean Corpuscular Volume 91.9 fL (80.0-100.0); Mean Platelet Volume 9.6 fL (9.4-12.4); Monocytes # (auto) 0.56 K/uL (0.11-0.59); Monocytes % (auto) 7.4 %; Neutrophils % (auto) 77.6 %; Platelet Count 247 K/uL (130-400); RDW Coefficient of Variation 13.8 % (11.5-14.5); Red Blood Count 4.56 M/uL (4.70-6.10); White Blood Count 7.59 K/ul (4.8-10.8)
--- NOTE | 2024-04-11 12:44 | Emergency Department Note ---
Impression & Plan Gross hematuria, Acute UTI (urinary tract infection), Supratherapeutic INR, Intramuscular hematoma ED Provider Note HISTORY OF PRESENT ILLNESS: Patient is an 83-year-old male presenting with gross hematuria. Reports he started having argenis bloody urine last night. His bloody urine continued into this morning. He does report passing some blood clots. He has a history of recurrent strokes and is on Coumadin. He had an INR checked with home health today and his INR was 3.2. Given his argenis hematuria and supratherapeutic INR, he was referred to the emergency department. Patient denies any abdominal pain, lightheadedness or dizziness. Denies any nausea or vomiting. Denies any dysuria. Denies any recent fevers. Patient does have a urine sample at bedside that is a dark red in color. ROS: as above PHYSICAL EXAM: Constitutional: Patient appears in no acute distress. HENT: Head: Normocephalic and atraumatic. Eyes: EOMI, PERRL Mouth/Throat: Mucous membranes moist. Neck: Trachea midline. Neck supple. Cardiovascular: RRR, No murmurs, rubs or gallops. Intact distal pulses. Pulmonary/Chest: No respiratory distress. Breath sounds clear and equal bilaterally. No wheezes or rales. Abdominal: Abdomen soft, no tenderness, rebound or guarding. Musculoskeletal: No edema, tenderness or deformity noted. Skin: Warm and dry. No rash, erythema, pallor or cyanosis Psychiatric: Appropriate mood and affect for situation. Neurological: Alert and keenly responsive. CN II-XII grossly intact, moving all extremities equally and fully. MDM: - Vitals signs stable. - History obtained via patient. History as above. - Chronic conditions affecting care: hx of PE; BPH; HLD - Differential diagnoses include, but are not limited to: Bladder cancer; UTI; coagulopathy; ureteral stone - Order placed for continuous cardiac monitoring. At this time, monitor showed rate of 62 bpm with normal sinus rhythm, per my interpretation. - External medical records reviewed. Discharge summary dated 02/29/2024 was reviewed. Patient was admitted the hospital at that time for acute right hip pain after a mechanical fall. - Laboratory workup interpreted by myself showed normal WBC; stable hemoglobin; supratherapeutic INR (3.3); stable electrolytes; normal creatinine - UA showed bacteria and blood - CT abdomen/pelvis with IV contrast showed a hyperdense focus within the dependent aspect of the bladder concerning for a clot. Also noted to have a subacute intramuscular hemorrhage of his right adductor muscle. - Given 2g IV rocephin for UTI. A three-way Shahid catheter was placed for continuous bladder irrigation. Will admit to hospital service given his supratherapeutic INR in the setting of his continued urinary hemorrhage. - Discussion was had with director of casework services about patient's case and need for admission - Hospitalist consulted for admission - [facility] ASSESSMENT AND PLAN: Diagnosis: gross hematuria; acute UTI; supratherapeutic INR; intramuscular hematoma Plan: Admit Past Med/Surg History Problem List (Updated 04/11/24 @ 15:41 by Kelsea Spears MD) Intramuscular hematoma (Acute) Supratherapeutic INR (Acute) Acute UTI (urinary tract infection) (Acute) Gross hematuria (Acute) Acute UTI (urinary tract infection) (Acute) Fall (Acute) Contusion of hip, right (Acute) Acute hip pain (Acute) First degree AV block Sinus tachycardia Retroperitoneal bleed Hematoma Contusion of leg, right (Acute) Recurrent UTI (urinary tract infection) Heme positive stool Stroke Migraine headache (Chronic) Urinary retention Incomplete emptying of bladder Elevated prostate specific antigen (PSA) Gastric polyp Encounter for pre-operative examination Encounter for pre-operative examination Colon polyp Anemia Anemia (Acute) Anemia Encounter for pre-operative examination Status post recent transurethral resection of prostate (Chronic) Status post lumbar laminectomy (Chronic) BPH (benign prostatic hyperplasia) (Chronic) History of pulmonary embolism (Chronic) early , post op complication > Warfarin Dyslipidemia (Chronic) Medical History Hypotension Hematuria Supratherapeutic INR Diabetes mellitus, type 2 On anticoagulant therapy warfarin daily Hard of hearing Peripheral neuropathy bilat legs Restless leg syndrome Urinary retention on occasion, meds help per pt Stroke 2018 > no residual effects > [facility] > was in therapy for reading for a while, all better now > doesn't see neuro anymore Myocardial Infarction early Pancreatic cyst just monitoring PAF (paroxysmal atrial fibrillation) Elevated INR T2DM (type 2 diabetes mellitus) Actinic keratosis 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 Poole with [place]> last checked around October 2020 > unsure of size Hypertension Coronary artery disease follows with CVA (cerebral vascular accident) Surgical History History of cardiac cath several > late 1989's early 1999's, last one 2007> no stents any time History of tooth extraction History of esophagogastroduodenoscopy (EGD) History of colonoscopy last 12/09/21 @ [facility] History of cataract surgery right Hx of tonsillectomy Family History Father Prostate cancer Diabetes Heart disease Hypertension Other No family history of adverse response to anesthesia Social History Smoking Status: Never smoker Second Hand Exposure: No; Do You Dip or Chew Tobacco: No; Hx Alcohol Use: No Hx Substance Use: No Preferred Language: Amharic Communication Ability: Effective Postal Mail Carrier Required: No Beliefs That Will Affect Care: None marital status: Current Living Situation: Spouse Current Living Situation Comment: Lives with and son current occupational status: retired Feels Safe at Home: Yes Diet: regular Assistive Devices: Cane and CPAP Allergies Allergies Allergy/AdvReac Type Severity Reaction Status Date / Time propoxyphene Allergy Intermediate Hallucinati Verified 02/27/24 23:05 ng omeprazole Allergy Unknown Unknown Verified 02/27/24 23:05 ELINOR Inhibitors AdvReac Mild Cough Verified 02/27/24 23:05 gabapentin AdvReac Mild Nausea Verified 02/27/24 23:05 Home Meds Home Medications Medication Instructions Recorded Confirmed cetirizine 10 mg tablet (Zyrtec) 10 mg PO PM 08/14/19 04/11/24 folic acid 1 mg tablet 1 mg PO QAM 08/14/19 04/11/24 losartan 50 mg tablet 50 mg PO PM 08/14/19 04/11/24 metoprolol succinate 25 mg 25 mg PO QAM 08/14/19 04/11/24 tablet,extended release 24 hr nitroglycerin 0.4 mg sublingual 0.4 mg sublingual UD PRN Chest Pain 08/14/19 04/11/24 tablet pantoprazole 40 mg tablet,delayed 40 mg PO QAM 08/14/19 04/11/24 release polyethylene glycol 3350 17 17 g PO DAILY PRN Constipation 08/14/19 04/11/24 gram/dose oral powder (Miralax) rosuvastatin 20 mg tablet 20 mg PO PM 08/14/19 04/11/24 cholecalciferol (vitamin D3) 25 25 mcg PO PM 05/22/20 04/11/24 mcg (1,000 unit) tablet (Vitamin D3) lorazepam 1 mg tablet 0.5 mg PO ONCE HS PRN Insomnia 05/22/20 04/11/24 ropinirole 0.25 mg tablet 0.25 mg PO HS 03/11/21 04/11/24 ferrous sulfate 325 mg (65 mg 325 mg PO QPM 12/05/21 04/11/24 iron) tablet (Iron (ferrous sulfate)) psyllium husk 3.4 gram/5.4 gram 1 tsp PO DAILY PRN Constipation 12/05/21 04/11/24 oral powder (Metamucil) metformin 1,000 mg tablet 1,000 mg PO BID 04/08/22 04/11/24 warfarin 2.5 mg tablet 5 mg PO 2XWK 06/21/22 02/27/24 amlodipine 2.5 mg tablet 2.5 mg PO QAM 01/26/24 04/11/24 calcipotriene 0.005 % topical cream 1 applic topical .BID UD 01/26/24 04/11/24 cyanocobalamin (vitamin B-12) 1,000 mcg PO DAILY 01/26/24 04/11/24 1,000 mcg tablet (Vitamin B-12) duloxetine 60 mg capsule,delayed 60 mg PO QPM 01/26/24 04/11/24 release dutasteride 0.5 mg capsule 0.5 mg PO HS 01/26/24 04/11/24 tamsulosin 0.4 mg capsule 0.4 mg PO DAILY 02/27/24 04/11/24 warfarin 2.5 mg tablet 2.5 mg PO 5XWK 02/27/24 02/27/24 Previous Rx's Medication Instructions Recorded acetaminophen 325 mg tablet 650 mg (2 x 325 mg) PO QID PRN 02/29/24 mild pain (scale score 1-4) #0 tabs diclofenac sodium 1 % topical gel 4 g EXT Q8H #0 grams 08/16/24 (Voltaren Arthritis Pain) tramadol 50 mg tablet 25 - 50 mg (0.5 - 1 x 50 mg) PO 02/29/24 Q4H PRN #0 tabs methenamine hippurate 1 gram tablet 1 g PO BID #180 tabs 03/21/24 Results & Data (ED) Vital Signs Vital Signs - 24 hr 04/11/24 11:45 04/11/24 12:22 04/11/24 12:37 Temperature 36.1 C L Temperature Source Skin Pulse Rate 60 62 62 Pulse Rate [Apical] Pulse Rhythm Regular Pulse Strength Normal Respiratory Rate 18 16 Respiratory Effort / Characteristics Non-Labored Spontaneous Respiratory Depth Normal Respiratory Pattern Regular Blood Pressure 130/80 Blood Pressure [Left Arm] Blood Pressure Mean 96 Blood Pressure Mean [Left Arm] Blood Pressure Position Sitting Pulse Oximetry 97 96 Oxygen Delivery Method Room Air Room Air Sepsis Recent Fever Within 48 Hours No Sepsis New/Unexplained Change in Mental Status N/A Sepsis Action Taken by Nursing No Action Required 04/11/24 14:46 Temperature Temperature Source Pulse Rate Pulse Rate [Apical] 62 Pulse Rhythm Pulse Strength Respiratory Rate 19 Respiratory Effort / Characteristics Non-Labored Respiratory Depth Normal Respiratory Pattern Blood Pressure Blood Pressure [Left Arm] 146/83 H Blood Pressure Mean Blood Pressure Mean [Left Arm] 104 Blood Pressure Position Pulse Oximetry 97 Oxygen Delivery Method Room Air Sepsis Recent Fever Within 48 Hours Sepsis New/Unexplained Change in Mental Status Sepsis Action Taken by Nursing Laboratory Data 04/11/24 12:10 04/11/24 12:10 Lab Results 04/11/24 04/11/24 Range/Units 12:10 Unknown WBC 7.59 (4.8-10.8) K/ul RBC 4.56 L (4.70-6.10) M/uL Hgb 13.8 L (14.0-18.0) g/dl Hct 41.9 L (42.0-52.0) % MCV 91.9 (80.0-100.0) fL MCH 30.3 (25.0-34.0) pg MCHC 32.9 (32.0-36.0) g/dL RDW Std Deviation 47.0 H (36.4-46.3) fL RDW Coeff of [place]gelia 13.8 (11.5-14.5) % Plt Count 247 (130-400) K/uL MPV 9.6 (9.4-12.4) fL Immature Gran % (Auto) 0.7 % Neut % (Auto) 77.6 % Lymph % (Auto) 12.8 % [place] % (Auto) 7.4 % Eos % (Auto) 1.2 % Baso % (Auto) 0.3 % Neut # (Auto) 5.90 (1.40-6.50) K/uL Lymph # (Auto) 0.97 L (1.20-3.40) K/uL [place]erry # (Auto) 0.56 (0.11-0.59) K/uL Eos # (Auto) 0.09 (0.00-0.50) K/uL Baso # (Auto) 0.02 (0.00-0.20) K/uL Immature Gran # (Auto) 0.05 (0.01-0.20) K/uL PT 31.8 H (9.0-12.0) Seconds INR 3.3 H (0.9-1.1) Sodium 137 (136-145) mmol/L Potassium 4.2 (3.5-5.1) mmol/L Chloride 103 (98-107) mmol/L Carbon Dioxide 29 (21-32) mmol/L Anion Gap 5 (3-11) BUN 17 (6-23) mg/dl Creatinine 0.74 (0.6-1.4) mg/dl Est Cr Clr Drug Dosing 90.6 ml/min Est GFR ( Amer) 100.3 ml/min Est GFR (Non-Af Amer) 86.5 ml/min BUN/Creatinine Ratio 23.0 H (10-20) Glucose 118 H (70-99(Fasting)) mg/dl Lactate 1.8 (0.4-2.0) mmol/L Calcium 9.3 (8.6-10.3) mg/dl Total Bilirubin 0.7 (0.2-1.0) mg/dl AST 13 (13-39) U/L ALT 12 (7-52) U/L Alkaline Phosphatase 123 H (34-104) U/L Total Protein 6.1 (6.0-8.3) gm/dl Albumin 4.0 (3.4-5.0) gm/dl Globulin 2.1 L (2.5-4.0) gm/dl Albumin/Globulin Ratio 1.9 (0.9-2) Lipase 11 (11-82) U/L Urine Color See Comment Urine Appearance Turbid A (Clear) Urine pH Not Reportable Ur Specific [place] 1.020 (1.000-1.030) Urine Protein Not Reportable Urine Glucose (UA) Not Reportable Urine Ketones Not Reportable Urine Blood Not Reportable Urine Nitrite Not Reportable Urine Bilirubin Not Reportable Urine Urobilinogen Not Reportable Ur Leukocyte Esterase Not Reportable Urine RBC >20 H (0-2) /hpf Urine WBC >50 H (0-5) /hpf Ur Epithelial Cells 3-5 H (0-2) /hpf Urine Bacteria 2+ H (None Seen) Administered Medications Discontinued Medications Ioversol (Optiray 320 100ml) 94 ml IV ONCE ONE Stop: 04/11/24 14:21 Last Admin: 04/11/24 14:21 Dose: 94 ml Documented By: AYLIN Imaging Data Radiologist's Impression: Abdomen/Pelvis CT 04/11/24 11:52 CT OF THE ABDOMEN AND PELVIS WITH CONTRAST CLINICAL HISTORY: Gross hematuria. COMPARISON STUDY: CTA of the abdomen and pelvis January 27, 2024. Right femur CT February 27, 2024. TECHNIQUE: Following IV administration of 94 mL of Optiray, axial images of the abdomen and pelvis were obtained from the lung bases to the proximal femurs. Images were reviewed in the axial, sagittal, and coronal planes. IV contrast was administered without complication. Automated exposure control was utilized for the study. A dose lowering technique was utilized adhering to the principles of ALARA. CT DOSE: 1250.79 mGy.cm FINDINGS: The aorta measures approximately 5 cm at the level the sinuses of Valsalva, suboptimally assessed on this exam. There are trace bilateral pleural effusions. No pneumatosis, free air or portal venous gas is present. The liver, spleen, adrenal glands and pancreas are unremarkable. Low-attenuation bilateral renal lesions likely reflect cysts although subcentimeter renal lesions are too small to characterize. There is no hydronephrosis. There are no urinary calculi. The prostate is enlarged, measuring 5.1 cm in transverse diameter. The bladder is moderately distended. A 3.8 x 2.6 cm hyperdense focus within the dependent aspect of the bladder is present. This is new since prior CT of February 26, 2014. There is no evidence for a bowel obstruction. The caliber and wall thickness of small and large bowel are normal. There is no abdominal or pelvic lymphadenopathy. There has been evolution of the previously described right iliopsoas intramuscular hematoma. Interval enlargement of a right adductor muscle is noted on image 308. There is adjacent stranding. There are gallstones within the gallbladder. IMPRESSION: 1. 3.8 x 2.6 cm hyperdense focus within the dependent aspect of the bladder suggestive of clot. A coexistent urothelial lesion be difficult to completely exclude but is not identified. Moderately distended bladder. No hydronephrosis. No urinary calculi. 2. Expected evolution of the previously described right iliopsoas intramuscular hematoma. Interval enlargement of an adjacent right adductor muscle suggestive of subacute intramuscular hemorrhage. 3. No bowel obstruction. No bowel wall thickening. ACT 112: Negative or not required by law. Electronically signed by: Osiel Gabriel M.D. 04/11/2024 2:59 PM Discharge Plan Visit Data Chief Complaint: Hematuria Stated Complaint: HEMATURIA ED Provider: Kelsea Spears Discharge Problem: Gross hematuria, Acute UTI (urinary tract infection), Supratherapeutic INR, Intramuscular hematoma Forms Stand Alone Forms: [facility] [employer] Prescriptions Prescriptions: No Action methenamine hippurate 1 gram tablet 1 g PO BID Qty: 180 3RF losartan 50 mg tablet 50 mg PO PM Rx Instructions: Patient states this dose pantoprazole 40 mg tablet,delayed release (DR/EC) 40 mg PO QAM metoprolol succinate 25 mg tablet extended release 24 hr 25 mg PO QAM rosuvastatin 20 mg tablet 20 mg PO PM nitroglycerin 0.4 mg Tablet, Sublingual 0.4 mg sublingual UD PRN (Reason: Chest Pain) cetirizine [Zyrtec] 10 mg Tablet 10 mg PO PM folic acid 1 mg Tablet 1 mg PO QAM polyethylene glycol 3350 [Miralax] 17 gram/dose Powder 17 g PO DAILY PRN (Reason: Constipation) lorazepam 1 mg tablet 0.5 mg PO ONCE HS PRN (Reason: Insomnia) cholecalciferol (vitamin D3) [Vitamin D3] 25 mcg (1,000 unit) Tablet 25 mcg PO PM ropinirole 0.25 mg Tablet 0.25 mg PO HS Rx Instructions: take this med with food ferrous sulfate [Iron (ferrous sulfate)] 325 mg (65 mg iron) Tablet 325 mg PO QPM Metamucil 3.4 gram/5.4 gram Powder 1 tsp PO DAILY PRN (Reason: Constipation) metformin 1,000 mg tablet 1,000 mg PO BID warfarin 2.5 mg Tablet 5 mg PO 2XWK Rx Instructions: TAKE 5MG ( 2.5MG X TWO TABS) EVERY SUNDAY AND SUNDAY. duloxetine 60 mg capsule,delayed release(DR/EC) 60 mg PO QPM amlodipine 2.5 mg tablet 2.5 mg PO QAM calcipotriene 0.005 % Cream 1 applic TOPICAL .BID UD Rx Instructions: rub in gently and completely dutasteride 0.5 mg capsule 0.5 mg PO HS Rx Instructions: TAKE 1 CAPSULE BY MOUTH AT BEDTIME cyanocobalamin (vitamin B-12) [Vitamin B-12] 1,000 mcg Tablet 1,000 mcg PO DAILY tamsulosin 0.4 mg capsule 0.4 mg PO DAILY warfarin 2.5 mg tablet 2.5 mg PO 5XWK Rx Instructions: TAKE 2.5MG EVERY SUNDAY/SUNDAY/SUNDAY/SUNDAY/SUNDAY acetaminophen 325 mg Tablet 650 mg PO QID PRN (Reason: mild pain (scale score 1-4)) Qty: 0 0RF tramadol 50 mg Tablet 25 - 50 mg PO Q4H PRNQty: 0 0RF diclofenac sodium [Voltaren Arthritis Pain] 1 % Gel 4 g EXT Q8H Qty: 0 0RF Referrals Referrals: Anurag Mora MD [Primary Care Provider] -
[2024-04-11 12:47] LABS: Albumin Globulin Ratio 1.9 (0.9-2); Bilirubin,Total 0.7 mg/dl (0.2-1.0); Calcium 9.3 mg/dl (8.6-10.3); Creatinine Clr Calc Pharmacy 90.6 ml/min; Est GFR (African American) 100.3 ml/min; Est GFR (Non-African American) 86.5 ml/min; Globulin 2.1 gm/dl (2.5-4.0); Potassium 4.2 mmol/L (3.5-5.1); Total Protein 6.1 gm/dl (6.0-8.3)
[2024-04-11 12:54] LABS: INR 3.3 (0.9-1.1); Prothrombin Time 31.8 Seconds (9.0-12.0)
[2024-04-11 13:09] LABS: Appearance Urine Turbid (Clear)
[2024-04-11 13:22] LABS: Bacteria Urine 2+ (None Seen); RBC Urine >20 /hpf (0-2); WBC Urine >50 /hpf (0-5)
[2024-04-11] MEDS: OPTIRAY 320 100ml IV ONE (14:21)
--- NOTE | 2024-04-11 15:00 | CT Scan Report ---
CT OF THE ABDOMEN AND PELVIS WITH CONTRAST CLINICAL HISTORY: Gross hematuria. COMPARISON STUDY: CTA of the abdomen and pelvis January 27, 2024. Right femur CT February 27, 2024. TECHNIQUE: Following IV administration of 94 mL of Optiray, axial images of the abdomen and pelvis we re obtained from the lung bases to the proximal femurs. Images were reviewed in the axial, sagittal, and coronal planes. IV contrast was administered without complication. Automated exposure control wa s utilized for the study. A dose lowering technique was utilized adhering to the principles of ALARA . CT DOSE: 1250.79 mGy.cm FINDINGS: The aorta measures approximately 5 cm at the level the sinuses of Valsalva, suboptimally as sessed on this exam. There are trace bilateral pleural effusions. No pneumatosis, free air or portal venous gas is present. The liver, spleen, adrenal glands and pancreas are unremarkable. Low-attenuati on bilateral renal lesions likely reflect cysts although subcentimeter renal lesions are too small to characterize. There is no hydronephrosis. There are no urinary calculi. The prostate is enlarged, me asuring 5.1 cm in transverse diameter. The bladder is moderately distended. A 3.8 x 2.6 cm hyperdense focus within the dependent aspect of the bladder is present. This is new since prior CT of February. There is no evidence for a bowel obstruction. The caliber and wall thickness of small and lar ge bowel are normal. There is no abdominal or pelvic lymphadenopathy. There has been evolution of the previously described right iliopsoas intramuscular hematoma. Interval enlargement of a right adducto r muscle is noted on image 308. There is adjacent stranding. There are gallstones within the gallblad [place]. IMPRESSION: 1. 3.8 x 2.6 cm hyperdense focus within the dependent aspect of the bladder suggestive of clot. A aminata xistent urothelial lesion be difficult to completely exclude but is not identified. Moderately disten ded bladder. No hydronephrosis. No urinary calculi. 2. Expected evolution of the previously described right iliopsoas intramuscular hematoma. Interval en largement of an adjacent right adductor muscle suggestive of subacute intramuscular hemorrhage. 3. No bowel obstruction. No bowel wall thickening. ACT 112: Negative or not required by law. Electronically signed by: Osiel Gabriel M.D. 04/11/2024 2:59 PM
[2024-04-11] MEDS: cefTRIAXone SODIUM 2,000 MG/50 ML BAG IV STA (16:08)
[2024-04-11] MEDS ORDERED: ONDANSETRON INJ 2 MG/ML 2 ML VIAL IV PRN (16:29)
[2024-04-11] MEDS ORDERED: ACETAMINOPHEN 325 MG TAB PO PRN (16:29)
[2024-04-11] MEDS ORDERED: ALUMINUM/MAGNESIUM SUSP 30 ML UDC PO PRN (16:29)
[2024-04-11] MEDS ORDERED: MAGNESIUM HYDROXIDE SUSP 30 ML UDC PO PRN (16:29)
--- NOTE | 2024-04-11 16:33 | History & Physical Report ---
<Statement entered by Wallace Messina MD - 04/11/24 18:32> Attending Addendum: Case reviewed with the advanced practitioner. I have personally performed a history and physical examination on the patient. I have reviewed the advanced practitioner's documentation on the date of service referenced in note, and I agree with, and take responsibility for the plan of care. Presents with hematuria likely 2/2 coumadin supratherapeutic, history of similar presentation though at that time retroperitoneal bleed. Discussed with heme, vitamin K and Kcentra given. Will consult uro given potential bladder clot vs. urothelial cancer. Also R gluteal hematoma previously seen on CT now enlarged, though asymptomatic, will consult orthopedics to confirm no surgical managent given worsening. Date of Service April 11, 2024 Assessment & Plan (1) Complicated UTI (urinary tract infection): (2) Supratherapeutic INR: (3) Gross hematuria: (4) History of pulmonary embolism: (5) BPH (benign prostatic hyperplasia): (6) Dyslipidemia: (7) Sleep apnea: (8) Coronary artery disease: Plan Mr. Morfin is an 83-year-old male past medical history significant for CAD status post stent, HTN, HLD, history of PAF/PE/recurrent cryptogenic stroke on chronic Coumadin, history of retroperitoneal bleed, PVD with a history of thoracic aortic aneurysm, ABDULLAHI on CPAP at night, BPH with chronic UTI, [id number] diabetic. Presented to the ED with argenis hematuria. Patient is compliant with his Coumadin. INR found to be 3.3. Abdominal pelvis CT results: 3.8 x 2.6 cm hyperdense focus within the dependent aspect of the bladder suggestive of clot. A coexistent urothelial lesion be difficult to completely exclude but is not identified. Moderately distended bladder. No hydronephrosis. No urinary calculi. Expected evolution of the previously described right iliopsoas intramuscular hematoma. Interval enlargement of an adjacent right adductor muscle suggestive of subacute intramuscular hemorrhage. No leukocytosis and otherwise hemodynamically stable, does not appear toxic and lactic acid was normal. Kidney function normal. Patient was started on ceftriaxone in ED and a three-way Shahid CBI was inserted. Discussed on the phone with Dr. Frances who recommended vitamin K 10 mg IV once now and followed by Sree with the orders that she has calculated. Given the history of retroperitoneal bleed. Patient with numerous urine cultures over the past few months 12/26/2023 enterobacte cloacae, 01/25 GPC, 04/03 E. coli. Patient will be admitted for further evaluation of supratherapeutic INR with urology consult and continued continuous bladder irrigation, continue with cefepime due to MDR, await further recommendations with urology. On examination no signs of active bleeding. Complicated UTI: Hematuria: Chronic no leukocytosis, does not appear toxic Ceftriaxone started in ED; continue Cefepime due to MDR Previous urine cultures: 04/03/24 E.Coli, 01/26/24: GPC, 12/26/23 Enterobacte loacae Urine culture pending three way CBI inserted in ED; dark red blood noted Urology consult placed Supratherapeutic INR: History of Retroperitoneal Bleed c/b R iliopsoas Hematoma: Acute Takes Coumadin 2.5 mg daily; 5 mg and Satu Takes Coumadin for pAF, H/O CVA and PE INR 3.[address] Frances on the phone; Vitamin K 10 mg IV and she placed order for KCentra (2500units) Recheck INR at midnight Ortho consult placed given Abdomen.Pelvis CT: 3.8 x 2.6 cm hyperdense focus within the dependent aspect of the bladder suggestive of clot. A coexistent urothelial lesion be difficult to completely exclude but is not identified. Moderately distended bladder. No hydronephrosis. No urinary calculi. Expected evolution of the previously described right iliopsoas intramuscular hematoma. Interval enlargement of an adjacent right adductor muscle suggestive of subacute intramuscular hemorrhage. No active signs of hematoma on examination. HTN hx CAD Chronic status post stent/PVD Takes Metoprolol and Losartan; continue hold parameters HLD: Chronic Takes rosuvastatin;continue BPH: chronic on chronic methenamine Rx; continue continue tamsulosin/finasteride DM2: Chronic on oral medications well-controlled as of recent hemoglobin A1c of 6.2 last August 2023 Repeat A1C in AM Hold Metformin and place on [facility] ACHS Diabetic/Heart healthy diet Disposition: PCP: Dr. Mora Code Status: Full Code DVT prophylaxis: warfarin; teds and SCDS while Coumadin on hold I spent a total of 82 minutes coordinating, documenting, and providing care for this patient excluding time spent in the performance of separately billed services. All of the aforementioned completed while collaborating with the assigned attending physician for a full treatment plan. Please see their addendum for further details. History of Present Illness Chief Complaint: hematuria;supratherapeutic INR Primary Care Provider: Anurag Mora MD Mr. Morfin is an 83-year-old male past medical history significant for CAD status post stent, HTN, HLD, history of PAF/PE/recurrent cryptogenic stroke on chronic Coumadin, history of retroperitoneal bleed, PVD with a history of thoracic aortic aneurysm, ABDULLAHI on CPAP at night, BPH with chronic UTI, [id number] diabetic. Presented to the ED with argenis hematuria. Patient is compliant with his Coumadin. INR found to be 3.3. Abdominal pelvis CT results: 3.8 x 2.6 cm hyperdense focus within the dependent aspect of the bladder suggestive of clot. A coexistent urothelial lesion be difficult to completely exclude but is not identified. Moderately distended blad [place]. No hydronephrosis. No urinary calculi. Expected evolution of the previously described right iliopsoas intramuscular hematoma. Interval enlargement of an adjacent right adductor muscle suggestive of subacute intramuscular hemorrhage. No leukocytosis and otherwise hemodynamically stable, does not appear toxic and lactic acid was normal. Kidney function normal. Patient was started on ceftriaxone in ED and a three-way Shahid CBI was inserted. Discussed on the phone with Dr. Frances who recommended vitamin K 10 mg IV once now and followed by [facility] with the orders that she has calculated. Given the history of retroperitoneal bleed. Patient with numerous urine cultures over the past few months 12/26/2023 enterobacte cloacae, 01/25 GPC, 04/03 E. coli. Patient will be admitted for further evaluation of supratherapeutic INR with urology consult and continued continuous bladder irrigation, continue with cefepime due to MDR, await further recommendations with urology. On examination no signs of active bleeding. Please see A/P for further details. Allergies Allergy/AdvReac Type Severity Reaction Status Date / Time propoxyphene Allergy Intermediate Hallucinati Verified 02/27/24 23:05 ng omeprazole Allergy Unknown Unknown Verified 02/27/24 23:05 ELINOR Inhibitors AdvReac Mild Cough Verified 02/27/24 23:05 gabapentin AdvReac Mild Nausea Verified 02/27/24 23:05 Home Medications Medication Instructions Recorded Confirmed Type cetirizine 10 mg tablet (Zyrtec) 10 mg PO PM 08/14/19 04/11/24 History folic acid 1 mg tablet 1 mg PO QAM 08/14/19 04/11/24 History losartan 50 mg tablet 50 mg PO PM 08/14/19 04/11/24 History metoprolol succinate 25 mg 25 mg PO QAM 08/14/19 04/11/24 History tablet,extended release 24 hr nitroglycerin 0.4 mg sublingual 0.4 mg sublingual UD PRN Chest Pain 08/14/19 04/11/24 History tablet pantoprazole 40 mg tablet,delayed 40 mg PO QAM 08/14/19 04/11/24 History release polyethylene glycol 3350 17 17 g PO DAILY PRN Constipation 08/14/19 04/11/24 History gram/dose oral powder (Miralax) rosuvastatin 20 mg tablet 20 mg PO PM 08/14/19 04/11/24 History cholecalciferol (vitamin D3) 25 25 mcg PO PM 05/22/20 04/11/24 History mcg (1,000 unit) tablet (Vitamin D3) lorazepam 1 mg tablet 0.5 mg PO ONCE HS PRN Insomnia 05/22/20 04/11/24 History ropinirole 0.25 mg tablet 0.25 mg PO HS 03/11/21 04/11/24 History ferrous sulfate 325 mg (65 mg 325 mg PO QPM 12/05/21 04/11/24 History iron) tablet (Iron (ferrous sulfate)) psyllium husk 3.4 gram/5.4 gram 1 tsp PO DAILY PRN Constipation 12/05/21 04/11/24 History oral powder (Metamucil) metformin 1,000 mg tablet 1,000 mg PO BID 04/08/22 04/11/24 History warfarin 2.5 mg tablet 5 mg PO 2XWK 06/21/22 04/11/24 History amlodipine 2.5 mg tablet 2.5 mg PO QAM 01/26/24 04/11/24 History calcipotriene 0.005 % topical cream 1 applic topical .BID UD 01/26/24 04/11/24 History cyanocobalamin (vitamin B-12) 1,000 mcg PO DAILY 01/26/24 04/11/24 History 1,000 mcg tablet (Vitamin B-12) duloxetine 60 mg capsule,delayed 60 mg PO QPM 01/26/24 04/11/24 History release dutasteride 0.5 mg capsule 0.5 mg PO HS 01/26/24 04/11/24 History tamsulosin 0.4 mg capsule 0.4 mg PO DAILY 02/27/24 04/11/24 History warfarin 2.5 mg tablet 2.5 mg PO 5XWK 02/27/24 04/11/24 History acetaminophen 325 mg tablet 650 mg (2 x 325 mg) PO QID PRN 02/29/24 04/11/24 Rx mild pain (scale score 1-4) #0 tabs diclofenac sodium 1 % topical gel 4 g EXT Q8H #0 grams 02/29/24 04/11/24 Rx (Voltaren Arthritis Pain) tramadol 50 mg tablet 25 - 50 mg (0.5 - 1 x 50 mg) PO 02/29/24 04/11/24 Rx Q4H PRN #0 tabs methenamine hippurate 1 gram tablet 1 g PO BID #180 tabs 03/21/24 04/11/24 Rx Past Med/Surg History Problem List (Updated 04/11/24 @ 17:35 by MARY Cutler) Complicated UTI (urinary tract infection) Coronary artery disease follows with Sleep apnea cpap Intramuscular hematoma (Acute) Supratherapeutic INR (Acute) Acute UTI (urinary tract infection) (Acute) Gross hematuria (Acute) Acute UTI (urinary tract infection) (Acute) Fall (Acute) Contusion of hip, right (Acute) Acute hip pain (Acute) First degree AV block Sinus tachycardia Retroperitoneal bleed Hematoma Contusion of leg, right (Acute) Recurrent UTI (urinary tract infection) Heme positive stool Stroke Migraine headache (Chronic) Urinary retention Incomplete emptying of bladder Elevated prostate specific antigen (PSA) Gastric polyp Encounter for pre-operative examination Encounter for pre-operative examination Colon polyp Anemia Anemia (Acute) Anemia Encounter for pre-operative examination Status post recent transurethral resection of prostate (Chronic) Status post lumbar laminectomy (Chronic) BPH (benign prostatic hyperplasia) (Chronic) History of pulmonary embolism (Chronic) early , post op complication > Warfarin Dyslipidemia (Chronic) Medical History Hypotension Hematuria Supratherapeutic INR Diabetes mellitus, type 2 On anticoagulant therapy warfarin daily Hard of hearing Peripheral neuropathy bilat legs Restless leg syndrome Urinary retention on occasion, meds help per pt Stroke 2018 > no residual effects > [facility] > was in therapy for reading for a while, all better now > doesn't see neuro anymore Myocardial Infarction early Pancreatic cyst just monitoring PAF (paroxysmal atrial fibrillation) Elevated INR T2DM (type 2 diabetes mellitus) Actinic keratosis 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 Poole with [facility]> last checked around October 2020 > unsure of size Hypertension Coronary artery disease follows with CVA (cerebral vascular accident) Surgical History History of cardiac cath several > late 1989's early , last one 2007> no stents any time History of tooth extraction History of esophagogastroduodenoscopy (EGD) History of colonoscopy last 12/09/21 @ [facility] History of cataract surgery right Hx of tonsillectomy Family History Father Prostate cancer Diabetes Heart disease Hypertension Other No family history of adverse response to anesthesia Social History Smoking Status: Never smoker Second Hand Exposure: No; Do You Dip or Chew Tobacco: No; Hx Alcohol Use: No Hx Substance Use: No Preferred Language: German Communication Ability: Effective Leg Assembler Required: No Beliefs That Will Affect Care: None marital status: Current Living Situation: Spouse Current Living Situation Comment: Lives with and son current occupational status: retired Feels Safe at Home: Yes Diet: regular Assistive Devices: Cane and CPAP Review of Systems Review of Systems: Neuro: (-) Falls, trauma, slurred speech HEENT: (-) SABA, dizziness, dysphagia, visual or auditory changes CV: (-) CP, palpitations, swelling Resp: (-) SOB GI: (-) appetite changes, N/V/D, bowel changes : (-) urinary changes Skin: (-) rashes Psych: (-) anxiety, depression Physical Exam Physical Exam: Neuro: AAOx4, PERRLA, no aphagia, memory changes, CNII-XII grossly intact HEENT: head normocephalic, moist mucus membranes CV: S1/S2, (-) M/G/R, (-) edema, cap refill < 3 seconds Resp: Lungs CTA in all avitia. On RA GI: Abdomen S/NT/ND, Ax4 bowel sounds, (-) CVA tenderness Musculoskeletal: 5/5 B/L UE strength, 5/5 B/L LE strength. No gait disturbance Skin: (-) rashes , (-) erythema. Psych: euthymic mood Results & Data Results & Data Vital Signs (Past 12 Hours) Vital Signs Temp Pulse Pulse Resp BP BP Pulse Ox 04/11/24 16:00 60 16 143/71 H 97 04/11/24 14:46 62 19 146/83 H 97 04/11/24 12:37 62 04/11/24 12:22 62 16 96 04/11/24 11:45 36.1 C L 60 18 130/80 97 O2 Del Method 04/11/24 16:00 Room Air 04/11/24 14:46 Room Air 04/11/24 12:37 04/11/24 12:22 Room Air 04/11/24 11:45 Room Air Laboratory Results Short CBC 04/11/24 Range/Units 12:10 WBC 7.59 (4.8-10.8) K/ul Hgb 13.8 L (14.0-18.0) g/dl Hct 41.9 L (42.0-52.0) % Plt Count 247 (130-400) K/uL BMP 04/11/24 12:10 Sodium 137 Potassium 4.2 Chloride 103 Carbon Dioxide 29 BUN 17 Creatinine 0.74 Glucose 118 H Calcium 9.3 Liver Function 04/11/24 Range/Units 12:10 Total Bilirubin 0.7 (0.2-1.0) mg/dl AST 13 (13-39) U/L ALT 12 (7-52) U/L Alkaline Phosphatase 123 H (34-104) U/L Albumin 4.0 (3.4-5.0) gm/dl Urine 04/11/24 Range/Units Unknown Urine Color See Comment Urine Appearance Turbid A (Clear) Urine pH Not Reportable Ur Specific [place] 1.020 (1.000-1.030) Urine Protein Not Reportable Urine Glucose (UA) Not Reportable Diagnostic Findings Abdomen/Pelvis CT 04/11/24 11:52 CT OF THE ABDOMEN AND PELVIS WITH CONTRAST CLINICAL HISTORY: Gross hematuria. COMPARISON STUDY: CTA of the abdomen and pelvis January 27, 2024. Right femur CT February 27, 2024. TECHNIQUE: Following IV administration of 94 mL of Optiray, axial images of the abdomen and pelvis were obtained from the lung bases to the proximal femurs. Images were reviewed in the axial, sagittal, and coronal planes. IV contrast was administered without complication. Automated exposure control was utilized for the study. A dose lowering technique was utilized adhering to the principles of ALARA. CT DOSE: 1250.79 mGy.cm FINDINGS: The aorta measures approximately 5 cm at the level the sinuses of Valsalva, suboptimally assessed on this exam. There are trace bilateral pleural effusions. No pneumatosis, free air or portal venous gas is present. The liver, spleen, adrenal glands and pancreas are unremarkable. Low-attenuation bilateral renal lesions likely reflect cysts although subcentimeter renal lesions are too small to characterize. There is no hydronephrosis. There are no urinary calculi. The prostate is enlarged, measuring 5.1 cm in transverse diameter. The bladder is moderately distended. A 3.8 x 2.6 cm hyperdense focus within the dependent aspect of the bladder is present. This is new since prior CT of February 26, 2014. There is no evidence for a bowel obstruction. The caliber and wall thickness of small and large bowel are normal. There is no abdominal or pelvic lymphadenopathy. There has been evolution of the previously described right iliopsoas intramuscular hematoma. Interval enlargement of a right adductor muscle is noted on image 308. There is adjacent stranding. There are gallstones within the gallbladder. IMPRESSION: 1. 3.8 x 2.6 cm hyperdense focus within the dependent aspect of the bladder suggestive of clot. A coexistent urothelial lesion be difficult to completely exclude but is not identified. Moderately distended bladder. No hydronephrosis. No urinary calculi. 2. Expected evolution of the previously described right iliopsoas intramuscular hematoma. Interval enlargement of an adjacent right adductor muscle suggestive o f subacute intramuscular hemorrhage. 3. No bowel obstruction. No bowel wall thickening. ACT 112: Negative or not required by law. Electronically signed by: Osiel Gabriel M.D. 04/11/2024 2:59 PM Code Status & VTE Plan Code Status Full Code in the event of cardiac or respiratory arrest VTE Prophylaxis Plan VTE Prophylaxis will be ordered: Yes
[2024-04-11] MEDS: PHYTONADIONE 10 MG in DEXTROSE 5% 50 ML IV ONE (16:41)
[2024-04-11] MEDS: PROTHROMBIN COMP CONC- KCENTRA 2,500 UNITS in SYRINGE 0 ML IV ONE (16:41)
[2024-04-11] MEDS ORDERED: DEXTROSE 50% 50 ML SYRINGE IV PRN (18:07)
[2024-04-11] MEDS ORDERED: CARBOHYDRATES FOR HYPOGLYCEMIA PO PRN (18:07)
[2024-04-11] MEDS ORDERED: GLUCOSE 40% GEL 15 GM TUBE PO PRN (18:07)
[2024-04-11] MEDS ORDERED: GLUCOSE 10 TAB/TUBE PO PRN (18:07)
[2024-04-11] MEDS ORDERED: GLUCAGON FOR INJ 1 MG VIAL SQ PRN (18:07)
[2024-04-11] MEDS ORDERED: PHARMACY GLYCEMIC MGMT CONSULT PRN (18:07)
--- NOTE | 2024-04-11 19:26 | Urology Consultation ---
Date of Consultation April 11, 2024 Assessment & Plan (1) Gross hematuria: The patient has been admitted on the hospital service. From a urologic perspective we recommend the following: It appears that the patient may have a urinary tract infection. This along with the supratherapeutic INR could explain his underlying hematuria Would recommend holding patient's antiplatelets and anticoagulant. Of note, the patient has received 10 mg of vitamin K intravenously as well as prothrombin complex concentrate to reverse his supratherapeutic INR He has been initiated on antibiotics in form of Rocephin for urinary tract infection. Urine culture has been sent and as culture results become available his antibiotics to be further tailored Would recommend maintaining the patient's Shahid catheter for the present time. If the catheter does become clogged manual flushing and irrigation to be a pplied by the nursing staff Will monitor the patient's clinical progress and determination will be made if patient will require any cystoscopic intervention during this hospitalization Supervising Physician Co-Signing Physician Notes Discussed patient with BILL. Agree with plan. History of Present Illness Reason for Consultation: Hematuria History of Present Illness This is a 83-year-old male who presented to the emergency department secondary to hematuria. Patient says that he has had hematuria in the past but he was unable to provide any other specific details and is unsure if he has ever had a cystoscopy in the past. He did note some intermittent dysuria along with gross hematuria. He did not feel as though he was passing any blood clots. He denies any fevers, shakes, or chills. He denies any back or flank pain. He denies any abdominal pain. With his hematuria he felt as though he could urinate and did not have any suprapubic discomfort. Since arrival to the emergency department the patient has had labs and imaging which I independently reviewed. A CT scan of the abdomen pelvis showed the patient had a 3.8 x 2.6 cm area of focus in the bladder suggestive of a blood clot. A urothelial lesion could not be excluded by the radiologist. Labs included a CBC were white blood cell count platelet count were normal. His hemoglobin and hematocrit were 13.8 and 41.9. Coagulation studies showed an INR of 3.3. Chemistry profile showed sodium and potassium as well as the BUN and creatinine were normal. Urinalysis showed pyuria with greater than 50 white blood cells per high-power field along with 2+ bacteria. Since arrival to the emergency department the patient has had a Shahid catheter placed. He does note some symptomatic relief with this modality. At the time of my interview he was resting comfortably in bed he was in no distress. Allergies Allergy/AdvReac Type Severity Reaction Status Date / Time propoxyphene Allergy Intermediate Hallucinati Verified 02/27/24 23:05 ng omeprazole Allergy Unknown Unknown Verified 02/27/24 23:05 ELINOR Inhibitors AdvReac Mild Cough Verified 02/27/24 23:05 gabapentin AdvReac Mild Nausea Verified 02/27/24 23:05 Home Medications Medication Instructions Recorded Confirmed Type cetirizine 10 mg tablet (Zyrtec) 10 mg PO PM 08/14/19 04/11/24 History folic acid 1 mg tablet 1 mg PO QAM 08/14/19 04/11/24 History losartan 50 mg tablet 50 mg PO PM 08/14/19 04/11/24 History metoprolol succinate 25 mg 25 mg PO QAM 08/14/19 04/11/24 History tablet,extended release 24 hr nitroglycerin 0.4 mg sublingual 0.4 mg sublingual UD PRN Chest Pain 08/14/19 04/11/24 History tablet pantoprazole 40 mg tablet,delayed 40 mg PO QAM 08/14/19 04/11/24 History release polyethylene glycol 3350 17 17 g PO DAILY PRN Constipation 08/14/19 04/11/24 History gram/dose oral powder (Miralax) rosuvastatin 20 mg tablet 20 mg PO PM 08/14/19 04/11/24 History cholecalciferol (vitamin D3) 25 25 mcg PO PM 05/22/20 04/11/24 History mcg (1,000 unit) tablet (Vitamin D3) lorazepam 1 mg tablet 0.5 mg PO ONCE HS PRN Insomnia 05/22/20 04/11/24 History ropinirole 0.25 mg tablet 0.25 mg PO HS 03/11/21 04/11/24 History ferrous sulfate 325 mg (65 mg 325 mg PO QPM 12/05/21 04/11/24 History iron) tablet (Iron (ferrous sulfate)) psyllium husk 3.4 gram/5.4 gram 1 tsp PO DAILY PRN Constipation 12/05/21 04/11/24 History oral powder (Metamucil) metformin 1,000 mg tablet 1,000 mg PO BID 04/08/22 04/11/24 History warfarin 2.5 mg tablet 5 mg PO 2XWK 06/21/22 04/11/24 History amlodipine 2.5 mg tablet 2.5 mg PO QAM 01/26/24 04/11/24 History calcipotriene 0.005 % topical cream 1 applic topical .BID UD 01/26/24 04/11/24 History cyanocobalamin (vitamin B-12) 1,000 mcg PO DAILY 01/26/24 04/11/24 History 1,000 mcg tablet (Vitamin B-12) duloxetine 60 mg capsule,delayed 60 mg PO QPM 01/26/24 04/11/24 History release dutasteride 0.5 mg capsule 0.5 mg PO HS 01/26/24 04/11/24 History tamsulosin 0.4 mg capsule 0.4 mg PO DAILY 02/27/24 04/11/24 History warfarin 2.5 mg tablet 2.5 mg PO 5XWK 02/27/24 04/11/24 History acetaminophen 325 mg tablet 650 mg (2 x 325 mg) PO QID PRN 02/29/24 04/11/24 Rx mild pain (scale score 1-4) #0 tabs diclofenac sodium 1 % topical gel 4 g EXT Q8H #0 grams 02/29/24 04/11/24 Rx (Voltaren Arthritis Pain) tramadol 50 mg tablet 25 - 50 mg (0.5 - 1 x 50 mg) PO 02/29/24 04/11/24 Rx Q4H PRN #0 tabs methenamine hippurate 1 gram tablet 1 g PO BID #180 tabs 03/21/24 04/11/24 Rx Patient History Medical History Hypotension Hematuria Supratherapeutic INR Diabetes mellitus, type 2 On anticoagulant therapy warfarin daily Hard of hearing Peripheral neuropathy bilat legs Restless leg syndrome Urinary retention on occasion, meds help per pt Stroke 2017 > no residual effects > [facility] > was in therapy for reading for a while, all better now > doesn't see neuro anymore Myocardial Infarction early 1999's Pancreatic cyst just monitoring PAF (paroxysmal atrial fibrillation) Elevated INR T2DM (type 2 diabetes mellitus) Actinic keratosis History of SCC (squamous cell carcinoma) of skin removed History of basal cell carcinoma removed Chronic urinary tract infection Thoracic aortic aneurysm follows with Dr. Poole with [facility]> last checked around October 2020 > unsure of size Hypertension CVA (cerebral vascular accident) Surgical History History of cardiac cath several > late 1989's early 1999's, last one 2007> no stents any time History of tooth extraction History of esophagogastroduodenoscopy (EGD) History of colonoscopy last 12/09/21 @ [facility] History of cataract surgery right Hx of tonsillectomy Family History Father Prostate cancer Diabetes Heart disease Hypertension Other No family history of adverse response to anesthesia Social History Smoking Status: Never smoker Second Hand Exposure: No; Do You Dip or Chew Tobacco: No; Tobacco Cessation Education Requested by Patient: No Hx Alcohol Use: No Hx Substance Use: No Preferred Language: Telugu Communication Ability: Effective Director Of Email Marketing Required: No Beliefs That Will Affect Care: None marital status: Current Living Situation: Spouse and Family Current Living Situation Comment: Lives with and son current occupational status: retired Other Information That Helps Us Care for You: No Feels Safe at Home: Yes Safety Concerns: Feels Safe At This Time Diet: regular Assistive Devices: Cane, Glasses and Hearing Aid - Bilateral Review of Systems Review of Systems: All systems reviewed & are unremarkable except as noted in HPI & below Physical Exam Constitutional: WD/WN, vitals as above Eyes: no conjunctival abnormality ENMT: Ears: + hearing impairment Mouth: no oropharynx abnormality Neck: trachea midline Respiratory: normal respiratory effort; no respiratory distress and no labored breathing Cardiovascular: Rate/Rhythm: regular rate and regular rhythm Gastrointestinal (Abdomen): Abdomen is soft and nondistended. There is no pain with palpation Musculoskeletal: No calf tenderness Skin: no rashes Neurologic: moves all extremities Genitourinary: A Shahid catheter is noted to be in place. There is draining bloody urine. I did not see any clots in the collection tubing. Catheter did appear patent and was draining appropriately. The patient did not have any suprapubic discomfort with palpation of his abdomen Results & Data Vital Signs (Past 12 Hours) Vital Signs Temp Pulse Pulse Resp BP BP Pulse Ox 04/11/24 18:14 54 L 18 142/86 H 96 04/11/24 18:07 54 L 22 142/86 H 97 04/11/24 16:57 56 L 04/11/24 16:00 60 16 143/71 H 97 04/11/24 14:46 62 19 146/83 H 97 04/11/24 12:37 62 04/11/24 12:22 62 16 96 04/11/24 11:45 36.1 C L 60 18 130/80 97 O2 Del Method 04/11/24 18:14 Room Air 04/11/24 18:07 Room Air 04/11/24 16:57 04/11/24 16:00 Room Air 04/11/24 14:46 Room Air 04/11/24 12:37 04/11/24 12:22 Room Air 04/11/24 11:45 Room Air PG Care Time/CCT Total # of Minutes Spent Total Time Spent with Patient: Total time spent is greater than 50% in coordination of care (as documented) at patient's floor/unit and/or counseling patient: Coding Level of Care Code 74593 INT INP/OBS CARE 3/75MIN Diagnoses Gross hematuria R31.0
--- NOTE | 2024-04-11 20:53 | Orthopedic Consultation ---
Date of Service April 11, 2024 Assessment & Plan (1) Intramuscular hematoma: The iliopsoas and adductor group hematoma appear to be subacute. And stable. His hematocrit is certainly stable since his last admission and consultation with orthopedics. He is set to follow-up and continue to work on the groin discomfort and iliopsoas bursal mass as an outpatient. I recommend continuing at this plan. There is no urgency for further workup or concern on this admission. Recommend that he follows up with a plan that he had established with [facility] and [facility] orthopedics History of Present Illness Reason for Consultation: Right hip pain, hematoma Requesting Physician: . Attending Physician: Wallace Messina MD 83-year-old male admitted with supratherapeutic warfarin and a bladder clot. Orthopedics was consulted after a CT of the abdomen and pelvis demonstrated iliopsoas hematoma and adductor hematoma. Patient was seen just last month by [facility] orthopedics for the right hip pain and developed after a fall. He was scheduled to follow-up with them as an outpatient for further care. Patient also states he has an MRI scheduled on April 17, he believes. This was to evaluate for an iliopsoas calcification that was seen on workup of his right hip pain. He reports no new symptoms about his hip. He still has some mild pain in his groin. Is worse when he is weightbearing and walking. No new issues with this since of admission. He is concerned about being discharged in time to get his MRI of his hip on April 17. Allergies Allergy/AdvReac Type Severity Reaction Status Date / Time propoxyphene Allergy Intermediate Hallucinati Verified 02/27/24 23:05 ng omeprazole Allergy Unknown Unknown Verified 02/27/24 23:05 ELINOR Inhibitors AdvReac Mild Cough Verified 02/27/24 23:05 gabapentin AdvReac Mild Nausea Verified 02/27/24 23:05 Home Medications Medication Instructions Recorded Confirmed Type cetirizine 10 mg tablet (Zyrtec) 10 mg PO PM 08/14/19 04/11/24 History folic acid 1 mg tablet 1 mg PO QAM 08/14/19 04/11/24 History losartan 50 mg tablet 50 mg PO PM 08/14/19 04/11/24 History metoprolol succinate 25 mg 25 mg PO QAM 08/14/19 04/11/24 History tablet,extended release 24 hr nitroglycerin 0.4 mg sublingual 0.4 mg sublingual UD PRN Chest Pain 08/14/19 04/11/24 History tablet pantoprazole 40 mg tablet,delayed 40 mg PO QAM 08/14/19 04/11/24 History release polyethylene glycol 3350 17 17 g PO DAILY PRN Constipation 08/14/19 04/11/24 History gram/dose oral powder (Miralax) rosuvastatin 20 mg tablet 20 mg PO PM 08/14/19 04/11/24 History cholecalciferol (vitamin D3) 25 25 mcg PO PM 05/22/20 04/11/24 History mcg (1,000 unit) tablet (Vitamin D3) lorazepam 1 mg tablet 0.5 mg PO ONCE HS PRN Insomnia 05/22/20 04/11/24 History ropinirole 0.25 mg tablet 0.25 mg PO HS 03/11/21 04/11/24 History ferrous sulfate 325 mg (65 mg 325 mg PO QPM 12/05/21 04/11/24 History iron) tablet (Iron (ferrous sulfate)) psyllium husk 3.4 gram/5.4 gram 1 tsp PO DAILY PRN Constipation 12/05/21 04/11/24 History oral powder (Metamucil) metformin 1,000 mg tablet 1,000 mg PO BID 04/08/22 04/11/24 History warfarin 2.5 mg tablet 5 mg PO 2XWK 06/21/22 04/11/24 History amlodipine 2.5 mg tablet 2.5 mg PO QAM 01/26/24 04/11/24 History calcipotriene 0.005 % topical cream 1 applic topical .BID UD 01/26/24 04/11/24 History cyanocobalamin (vitamin B-12) 1,000 mcg PO DAILY 01/26/24 04/11/24 History 1,000 mcg tablet (Vitamin B-12) duloxetine 60 mg capsule,delayed 60 mg PO QPM 01/26/24 04/11/24 History release dutasteride 0.5 mg capsule 0.5 mg PO HS 01/26/24 04/11/24 History tamsulosin 0.4 mg capsule 0.4 mg PO DAILY 02/27/24 04/11/24 History warfarin 2.5 mg tablet 2.5 mg PO 5XWK 02/27/24 04/11/24 History acetaminophen 325 mg tablet 650 mg (2 x 325 mg) PO QID PRN 02/29/24 04/11/24 Rx mild pain (scale score 1-4) #0 tabs diclofenac sodium 1 % topical gel 4 g EXT Q8H #0 grams 02/29/24 04/11/24 Rx (Voltaren Arthritis Pain) tramadol 50 mg tablet 25 - 50 mg (0.5 - 1 x 50 mg) PO 02/29/24 04/11/24 Rx Q4H PRN #0 tabs methenamine hippurate 1 gram tablet 1 g PO BID #180 tabs 03/21/24 04/11/24 Rx Past Med/Surg History Problem List Complicated UTI (urinary tract infection) Coronary artery disease follows with Sleep apnea cpap Intramuscular hematoma (Acute) Supratherapeutic INR (Acute) Acute UTI (urinary tract infection) (Acute) Gross hematuria (Acute) Acute UTI (urinary tract infection) (Acute) Fall (Acute) Contusion of hip, right (Acute) Acute hip pain (Acute) First degree AV block Sinus tachycardia Retroperitoneal bleed Hematoma Contusion of leg, right (Acute) Recurrent UTI (urinary tract infection) Heme positive stool Stroke Migraine headache (Chronic) Urinary retention Incomplete emptying of bladder Elevated prostate specific antigen (PSA) Gastric polyp Encounter for pre-operative examination Encounter for pre-operative examination Colon polyp Anemia Anemia (Acute) Anemia Encounter for pre-operative examination Status post recent transurethral resection of prostate (Chronic) Status post lumbar laminectomy (Chronic) BPH (benign prostatic hyperplasia) (Chronic) History of pulmonary embolism (Chronic) early , post op complication > Warfarin Dyslipidemia (Chronic) Medical History Hypotension Hematuria Supratherapeutic INR Diabetes mellitus, type 2 On anticoagulant therapy warfarin daily Hard of hearing Peripheral neuropathy bilat legs Restless leg syndrome Urinary retention on occasion, meds help per pt Stroke 2018 > no residual effects > [facility] > was in therapy for reading for a while, all better now > doesn't see neuro anymore Myocardial Infarction early Pancreatic cyst just monitoring PAF (paroxysmal atrial fibrillation) Elevated INR T2DM (type 2 diabetes mellitus) Actinic keratosis History of SCC (squamous cell carcinoma) of skin removed History of basal cell carcinoma removed Chronic urinary tract infection Thoracic aortic aneurysm follows with Dr. Poole [facility]> last checked around October 2020 > unsure of size Hypertension CVA (cerebral vascular accident) Surgical History History of cardiac cath several > late 1989's early 1999's, last one 2007> no stents any time History of tooth extraction History of esophagogastroduodenoscopy (EGD) History of colonoscopy last 12/09/21 @ [facility] History of cataract surgery right Hx of tonsillectomy Family History Father Prostate cancer Diabetes Heart disease Hypertension Other No family history of adverse response to anesthesia Social History Smoking Status: Never smoker Second Hand Exposure: No; Do You Dip or Chew Tobacco: No; Tobacco Cessation Education Requested by Patient: No Hx Alcohol Use: No Hx Substance Use: No Preferred Language: Guyanese Communication Ability: Effective Director Cardiac Required: No Beliefs That Will Affect Care: None marital status: Current Living Situation: Spouse and Family Current Living Situation Comment: Lives with and son current occupational status: retired Other Information That Helps Us Care for You: No Feels Safe at Home: Yes Safety Concerns: Feels Safe At This Time Diet: regular Assistive Devices: Cane, Glasses and Hearing Aid - Bilateral Review of Systems All systems reviewed & are unremarkable except as noted in HPI & below. Physical Exam Right hip: No overlying skin changes nor signs of trauma. There is no hematoma or ecchymosis formation is visible on inspection. He is able to form a straight leg raise easily can internally externally rotate through the hip. He has no pain on logroll. He is mildly tender to the groin area with palpation. He is nontender through the gluteal and adductor region. Distally vastly intact. No distal extremity edema. Constitutional WD/WN, vitals as above no acute distress and not intoxicated appearing Respiratory normal respiratory effort; no labored breathing Cardiovascular Extremities: normal capillary refill Results & Data Results & Data Laboratory Results Laboratory Tests 04/03/24 04/03/24 04/03/24 11:53 11:53 11:53 Hct 44.1 PT 32.4 H INR 3.3 H 04/11/24 04/11/24 04/11/24 12:10 12:10 12:10 Hct 41.9 L PT 31.8 H INR 3.[address] of the abdomen pelvis report was reviewed. There is small subacute hematoma formation in the iliopsoas and adductor group. There is no acute bleeding of concern. PG Care Time/CCT Total # of Minutes Spent Total Time Spent with Patient: Total time spent is greater than 50% in coordination of care (as documented) at patient's floor/unit and/or counseling patient: Coding Level of Care Code 88758 IN/OBS CONSULT LVL 4,60M Diagnoses Intramuscular hematoma T14.8XXA
[2024-04-11] MEDS ORDERED: LANTUS PER UNIT CHARGE SQ SCH (21:00)
[2024-04-11] MEDS: CEFEPIME 2,000 MG in SYRINGE 0 ML IV SCH (21:30)
[2024-04-11] MEDS: INSULIN ASPART PER UNIT CHARGE SC SCH (21:30)
[2024-04-12 01:51] LABS: INR 1.1 (0.9-1.1); Prothrombin Time 12.3 Seconds (9.0-12.0)
--- OUTSIDE RECORDS SUMMARY | 2024-04-12 06:31 | External Medical Summary | Summary of Care ---
Author Name Unknown Organization [facility] Address [address] [facility] [facility] [address] Phone [phone] Care Team Providers Care Electrical Manufacturing Engineer Name Role Phone Anurag Mora MD Primary Care Provider + Reason for Visit * Reason Comments Dosage Adjustment Via Phone (anticoag Cl inic) Encounter Details Date Type Department Care Team (Late st Contact Info) Description 04/11/2024 6:15 PM EDT Anticoagulation [facility], Ney Castañeda [address] [place] [address] [place] [phone] [facility], [address] [place] [address] H/O ischemic multifocal posterior circulation stroke*; History of pulmonary embolism Allergies Active Allergy Reactions Criticality Noted Date Comments Deandre Inhibitors Cough Medium 05/25/2008 Propoxyphene N-Acetaminophen Nausea/vomiting Low 04/26/2010 Gabapentin Nausea/vomiting Low 04/10/2011 Omeprazole 12/05/2002 bad side effects documented as of this encounter (statuses as of 04/11/2024) Medications Medication Sig Dispensed Refills Start Date End Date Status FOLIC ACID TABS 1 MG ORIndications:Acute ID, anterior wall (HCC) 1 TABLET DAILY 30 [...] 10 cm every night at bedtime. Active Any+Times Verio Flex System w/Device KitIndications:High blood sugar,Type [...] 5% 5-fluorouracil cream) 60 g 10/18/2022 Active Vitamin B-12 1000 MCG Oral Tablet (Cyanocobalamin) Take 1 Tablet by mouth in the morning. Active TwijectorTouch Delica Plus [id number] :Type 2 diabetes mellitus with hemoglobin A1c goal of less than 7.0% ([facility]LY [facility]),High blood sugar USE TO CHECK GLUCOSE ONCE DAILY 100 Each 3 08/22/[address] Verio In Vitro Strip (Glucose Blood)Indications:Ty pe [...] A1c goal of less than 7.0% (HCC) TAKE 1 TABLET BY MOUTH WITH BREAKFAST [...] to 180 days 1 Each 02/26/2024 Active Additional Information Patient not taking.Reported on 03/13/2024 traMADol HCl 50 MG Oral Tablet (Ultram) Q4H 02/29/2024 Acti ve Acetaminophen 325 MG Oral Tablet (Tylenol) 2 Tablets. 02/29/2024 Active Diclofenac Sodium 1 % External Gel (Voltaren) 4 g. 03/09/2024 Active rOPINIRole HCl 0.25 MG Oral Tablet (Requip)Indications: Restless legs syndrome Take 1 Tablet by mouth at bedtime. 90 Tablet 3 03/23/2024 Active documented as of this encounter (statuses as of 04/11/2024) Active Problems Problem Noted Date Diagnosed Date [...] as of this encounter (statuses as of 04/11/2024) Resolved Problems Problem Noted Date Diagnosed Date Resolved Date Sinus pause 07/26/2018 10/16/2018 History of malignant neoplasm of skin 05/02/2018 04/08/2019 History of migraine 05/02/2018 04/08/20 19 Cryptogenic stroke 01/21/2018 9 Anticoagulated on warfarin 01/21/2018 0 08/05/2021 Prediabetes 08/28/2017 06/30/2021 Overview: Per Prediabetes protocol #1 RLL 1.4 cm nodule 05/04/2011 12/01/2017 Overview: 08/2009 CT -- [id number] 11/2012 CT -- 11x8mm, f/u in 18 [...] surveillance.- tubular adenoma Migraine without aura 05/15/20052017 senior care current use of ant icoagulant therapy 07/08/2003 [...] as of this encounter (statuses as of 04/11/2024) Immunizations Name Administration Dates Next Due COVID-19 mRNA, LNP-s, No Pre serve, 2-Dose Series ([employer]) 04/13/2021,09/11/2020,08/21/2020 COVID-19, LNP-s, No Preserve , Cholo-sucrose, Ages 12+ (Pfizer) 10/20/2021 Covid-19, Mrna, Lnp-s, Pf, B ivalent, 30 Mcg, IM, 12 yrs and above ([employer]) 03/29/2022 H1N1 2009 Influenza, IM 07/02/2009 Pneumococcal [...] lent, No Preserve, IM 03/30/2017,03/28/2016 Seasonal Influenza, Trivalen t, (IIV3), with Preserv, (Fluzone) 04/01/2015,03/18/2014,03/29/2013,03/16,05/04/2011,05/05/2010,05/10/20,05/25/2008,05/09/2007,05/14/2006 03/18/2015 Seasonal Influenza, Trivalen t, Adjuvanted, 65+ YRS, PF, (Fluad) 04/08/2019 TD, Preservative Free 05/25/2008 TDAP (age [...] as of this encounter Progress Notes * Ayana Sarabia RPh - 04/11/2024 12:36 PM EDT Noted. Will place patient on schedule for Sunday to follow up regarding symptoms and ER visit. Thank you, Ayana Sarabia PharmD Clinical Pharmacist [facility] ([facility]) 04/11/2024 12:36 PM * Liliya Corona PHARM Tech - 04/11/2024 12:03 PM EDT Contacts Contact Date/Time Type Contact Phone/Fax 04/11/2024 10:26 AM EDT Phone (Incoming) Alejandrina (Other) [phone] 04/11/2024 11:53 AM EDT Phone (Outgoing) NANO MALONEMARIE (Emergency Contact) [phone] (H) Subjective Patient Findings Positives: Emergency department visit (spoke to patient's , patient is on his way to the ER.) Negatives: Signs/symptoms of bleeding, Change in health, Change in activity, Upcoming invasive procedure, Missed doses, Extra doses, Change in medications, Change in diet/appetite, Bruising Advised patient to contact Anticoagulation Clinic if any unusual bruising or bleeding, recent illness, changes in medication, or questions/concerns. PT/INR results, Coumadin dose instructions, and next PT/INR date communicated as noted by Pharmacist: Yes KYRIE STRAUSS 04/11/2024, 12:03 PM * Ayana Sarabia [facility] - 04/11/2024 11:37 AM EDT Images from the original note were not included. Coumadin Clinic (region specific) Objective Current Warfarin Dose As of 04/11/2024 Warfarin maintenance plan: 5 mg (2.5 mg x 2) every Shara, Sat; 2.5 mg (2.5 mg x 1) all other days INR Result As of 04/11/2024 INR goal: 2.0-3.0 INR used for dosin.2 (04/11/2024) Assessment & Plan Warfarin Plan As of 04/11/2024 Full warfarin instructions: 04/12: Hold; Otherwise 5 mg every Shara, Sat; 2.5 mg all other days Next INR check: 04/18/2024 HH reported blood in patient's urine. Patient should continue to monitor and contact [facility] or go to ER if symptoms persist. Repeat PT/INR in 1 week(s) Weekly dose: not changed Additional Dosing Information: Description (Takes in AM) [facility] 1.25mg MWF, 2.5mg all other days - Bactrim DS Tech to contact patient with dose instructions as noted. Ayana Sarabia [facility] 04/11/2024, 11:37 AM * La Mcghee CPhT - 04/11/2024 10:24 AM EDT Caller's name: Alejandrina nurse Preferred call back number(OFFICE NUMBER FOR HH): [phone] Reason for call: nursing facility, [facility], calling with INR results. Result is 3.2 which was drawnon 04/11/2024. Patient is not being discharged. Alejandrina also reports having blood in urine. Patient does straight cath himself. Thank you, La Mcghee CPhT Pipe Wrapping Machine Operator II [facility] ([facility]) 04/11/2024,10:24 AM documented in this encounter Plan of Treatment Upcoming Encounters Date Type Department Care Team (Late st Contact Info) Description 04/14/2024 6:45 AM EDT Anticoagulation [facility] Clinical Pharmacy Services, Ney Castañeda [address] [place] [address] [place] [phone] [place] [address] 04/14/2024 11:00 AM EDT Office Visit Orthopaedics [facility] [address] [place] [address] Norm Galan, [address] [place] [address] 04/17/2024 4:15 PM EDT Imaging Radiology [facility], [place] [address] [place] [address] 04/18/2024 6:15 PM EDT Anticoagulation [facility], Ney Castañeda [address] [place] [address] [place] [phone] [facility], [address] [place] [address] 05/27/2024 8:15 AM EST Office Visit MOHS Surgery [facility] [address] [place] [address] Jewell Pastor MD [address] [place] [address] 06/23/2024 2:30 PM EST Office Visit Cardiology, [facility] [address] [place] [address] Juancho Nelson DO [address] [place] [address] 10/28/2024 2:40 PM EDT Office Visit General Internal Medicine [facility] [address] [place] [address] Anurag Mora MD [address] [place] [address] 01/15/2025 1:30 PM EDT Office Visit Neurology [address] [place] [address] Evelyn Mcgill PA-C [address] [facility] [place] [phone] Scheduled Procedures Name Priority Associated Diagnoses Date/Ti me COLONOSCOPY FLEXIBLE PROXIMA L DIAGNOSTIC Recall History of colonic polyps Health Maintenance Due Date Last Done Comments Adult Wellness Visit 05/26/2023 05/26/2022, 05/25/20 21 Depression Screening 05/26/2023 05/26/2022 Albumin/Creatinine Ratio 07/27/2023 07/27/2022, 08/2021 HbA1c 02/15/2024 08/17/2023, 01/14, 07/27/2022, Additional history exists COVID-19 Vaccine (2023- season) 2024 04/30/2023, 03/29/2022, 10/20/2021, Additional history exists Influenza Vaccine (FLU shot) (#1) 2024 04/11/2023, 03/23/2022, 03/15/2021, Additional history exists Zoster Vaccines (3 of 3) 04/22/2024 02/26/2024, 04/16 Diabetic Foot Exam 08/15/2024 08/15/2023, 0 07/26/2022, 08/05/2021 Diabetic Eye Exam 12/17/2024 12/18/2023, , 12/18/2023, Additional history exists GFR 03/08/2025 03/08/2024, 02/13, 02/26/2024, Additional history exists DTap/Tdap Vaccines (2 - Td or Tdap) 03/28/2026 [...] this encounter Medical Devices Implanted Type Area Fountain Server Device Identifier Shelf Expiration Date Model / Serial / Lot Lens Intraoc 18.0 - [id number] - [id number] Implanted:Qty: 1 on 12/11/2017 by Bryan Alfaro MD at OR [facility] Right: Eye [employer] 07/15/2021 [id number] / [id number] / [id number] Clip Quick 2.8mm 230cm - [id number] Implanted:Qty: 1 on 08/11/2020 by Anaid Powell, DO at ENDOSCOPY [facility] [employer] 09/15/2022 HX-202UR.A / / [id number] Clip Quick 2.8mm 230cm - [id number] Implanted:Qty: 1 on 08/11/2020 by Anaid Powell, DO at ENDOSCOPY [facility] [employer] 09/15/2022 HX-202UR.A / / [id number] Clip Quick 2.8mm 230cm - [id number] Implanted:Qty: 1 on 08/11/2020 by Anaid Powell, DO at ENDOSCOPY [facility] [employer] 09/15/2022 HX-UR.A / / [id number] Clip Quick 2.8mm 230cm - [id number] Implanted:Qty: 1 on 08/11/2020 by Anaid Powell, DO at ENDOSCOPY [facility] [address] [employer] 09/15/2022 HX-UR.A / / [id number] documented as of this encounter Procedures Procedure Name Priority Date/Time Associated Diagnosis Comments OUTSIDE LAB-PT/INR Routine 04/11/2024 documented in this encounter Results * OUTSIDE LAB-PT/INR (04/11/2024) INR-OUTSIDE LAB 3.2 04/11/2024 History Per Patient LABORATORY documented in this [...] were consensually agreed upon. Care Teams Electrical Manufacturing Engineer Relationship Specialty Start Date End Date Anurag Mora MD [address] [place] [address] [place], [place] [address] PCP - General Internal Medicine 05/06/21 documented as of this encounter
[2024-04-12 06:57] LABS: Hematocrit (blood only) 38.4 % (42.0-52.0); Hemoglobin 12.7 g/dl (14.0-18.0); Mean Corpuscular Hemoglobin 30.5 pg (25.0-34.0); Mean Corpuscular Hgb Conc 33.1 g/dL (32.0-36.0); Mean Corpuscular Volume 92.3 fL (80.0-100.0); Mean Platelet Volume 10.4 fL (9.4-12.4); Platelet Count 216 K/uL (130-400); RDW Coefficient of Variation 13.7 % (11.5-14.5); Red Blood Count 4.16 M/uL (4.70-6.10); White Blood Count 7.84 K/ul (4.8-10.8)
[2024-04-12 07:21] LABS: Prothrombin Time 11.3 Seconds (9.0-12.0)
[2024-04-12 07:32] LABS: BUN Creatinine Ratio 26.1 (10-20); Calcium 8.8 mg/dl (8.6-10.3); Creatinine Clr Calc Pharmacy 97.8 ml/min; Est GFR (African American) 103.2 ml/min; Magnesium 1.7 mg/dl (1.7-2.4)
--- NOTE | 2024-04-12 09:22 | Urology Progress Note ---
Date of Service April 12, 2024 Assessment & Plan (1) Gross hematuria: Plan 83-year-old male who is admitted due to hematuria and a CT scan showed a possible clot versus tumor in bladder. His INR was elevated at 3.3 and he was reversed. CBI clamped on rounds. Discussed with nursing that if urine stays clear over the next several hours he can be disconnected from CBI and to have a yellow placed Patient can have a diet from a urologic perspective Not unreasonable to restart Coumadin at this time as it will take several days for him to become therapeutic. Ultimately, will defer anticoagulation plan to a primary team but okay to restart from a urologic perspective Patient will need outpatient workup in the form of cystoscopy to determine cause of bleeding. No indication for any procedure while currently admitted Follow-up urine culture and treat accordingly Urology to follow Admission and Anticipated Discharge Date Admission Date: April 11, 2024 Subjective Afebrile with stable vitals. Hemoglobin stable today. Creatinine stable. Urine is blood-tinged essentially off CBI. Physical Exam Physical Exam: General: Alert and oriented, no acute distress HEENT: Normocephalic, mucous membranes moist Pulmonary: Nonlabored respirations Abdomen: Nondistended : Catheter draining pink-tinged urine, CBI essentially clamped on rounds Extremities: Moves all 4 spontaneously Neuro: No gross deficits Skin: Warm, dry, no rashes noted Results & Data Vital Signs (Past 12 Hours) Vital Signs Temp Pulse Pulse Resp BP Pulse Ox O2 Del Method 04/12/24 07:46 36.8 C 59 L 18 146/84 H 97 BiPAP 04/12/24 04:07 04/12/24 03:38 36.8 C 60 18 155/77 H 96 Room Air 04/11/24 23:49 36.5 C 58 L 18 138/80 96 CPAP 04/11/24 22:05 59 L 04/11/24 21:50 55 L 12 99 FiO2 04/12/24 07:46 04/12/24 04:07 21 04/12/24 03:38 04/11/24 23:49 04/11/24 22:05 04/11/24 21:50 21 PG Care Time/CCT Total # of Minutes Spent Total Time Spent with Patient: Total time spent is greater than 50% in coordination of care (as documented) at patient's floor/unit and/or counseling patient: Coding Level of Care Code 74734 SUB INP/OBS CARE 235MIN Diagnoses Gross hematuria R31.0
[2024-04-12 09:28] LABS: Estimated Average Glucose 126 mg/dl
--- NOTE | 2024-04-12 13:44 | Hospitalist Progress Note ---
Date of Service April 12, 2024 Assessment & Plan (1) Complicated UTI (urinary tract infection): (2) Supratherapeutic INR: (3) Gross hematuria: (4) History of pulmonary embolism: (5) BPH (benign prostatic hyperplasia): (6) Dyslipidemia: (7) Sleep apnea: (8) Coronary artery disease: Plan Mr. Morfin is an 83-year-old male past medical history significant for CAD status post stent, HTN, HLD, history of PAF/PE/recurrent cryptogenic stroke on chronic Coumadin, history of retroperitoneal bleed, PVD with a history of thoracic aortic aneurysm, ABDULLAHI on CPAP at night, BPH with chronic UTI, [id number] diabetic. admitted for management of supratherapeutic INR, gross hematuria, and complicated UTI CT abdominal pelvis revealed .8 x 2.6 cm hyperdense focus within the dependent aspect of the bladder suggestive of clot. A coexistent urothelial lesion be difficult to completely exclude but is not identified. Moderately distended bladder. No hydronephrosis. No urinary calculi. Expected evolution of the previously described right iliopsoas intramuscular hematoma. Interval enlargement of an adjacent right adductor muscle suggestive of subacute intramuscular hemorrhage. Patient was started on CBI. Patient s/p vitamin K and Kcentra. Ortho consulted given the history of retroperitoneal bleed--no surgical intervention given subacute appearance and stable hgb. Urology plans to follow for now, stop CBI, and treat infection. Decision pending if inpatient cystoscopy will be pursued Otherwise, given stable hgb will resume warfarin as patient has risk factors for stroke. Will trend INR and start 2.5mg daily. Will need close follow up . Continue IV abx until mode results. #Acute Complicated UTI: #Gross Hematuria: no leukocytosis, does not appear toxic Previous urine cultures: 04/03/24 E.Coli, 01/26/24: GPC, 12/26/23 Enterobacte loacae Urine culture pending three way CBI inserted in ED; dark red blood not Continue cefepime Urology consulted, reviewed recommendations #Supratherapeutic INR #Chronic anticoagulation #hx PE #recurrent CVA #cryptogenic stroke INR 3.3 on admission, given concern for expanding hematoma and hemtauria s/p vit K and kcentra Urine clearing at this time will resume warfarin without bridge #Chronic normocytic Anemia #History of Retroperitoneal Bleed c/b R iliopsoas Hematoma #b12 deficiency Continue home folate, iron and b12 supplements Pt currently hemodynamically stable Abdomen.Pelvis CT: 3.8 x 2.6 cm hyperdense focus within the dependent aspect of the bladder suggestive of clot. A coexistent urothelial lesion be difficult to completely exclude but is not identified. Moderately distended bladder. No hydronephrosis. No urinary calculi. Expected evolution of the previously described right iliopsoas intramuscular hematoma. Interval enlargement of an adjacent right adductor muscle suggestive of subacute intramuscular hemorrhage. No active signs of hematoma on examination. 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 Admission and Anticipated Discharge Date Admission Date: April 11, 2024 Subjective NAEO Reports feeling much improved today Denies any abdominal pain or new symptoms Denies fevers or chills this am Reports feeling happy that urine clearing--stating this is common when he has UTIs Physical Exam Constitutional: WD/WN, vitals as above Respiratory: normal respiratory effort, lungs clear to auscultation Cardiovascular: RRR, no murmur, no edema Gastrointestinal (Abdomen): normal bowel sounds, soft, nontender, no hepatospl enomegaly Shahid examined: clear urine in tubing and bag Results & Data Results & Data Vital Signs (Past 12 Hours) Vital Signs Temp Pulse Resp BP Pulse Ox O2 Del Method FiO2 04/12/24 11:33 37.1 C 58 L 18 125/71 95 Room Air 04/12/24 07:46 36.8 C 59 L 18 146/84 H 97 BiPAP 04/12/24 04:07 21 04/12/24 03:38 36.8 C 60 18 155/77 H 96 Room Air Laboratory Results Short CBC 04/12/24 Range/Units 06:08 WBC 7.84 (4.8-10.8) K/ul Hgb 12.7 L (14.0-18.0) g/dl Hct 38.4 L (42.0-52.0) % Plt Count 216 (130-400) K/uL BMP 04/12/24 06:08 Sodium 138 Potassium 4.0 Chloride 105 Carbon Dioxide 28 BUN 18 Creatinine 0.69 Glucose 89 Calcium 8.8 Medications Administered Home Medications Medication Instructions Recorded Confirmed Last Taken cetirizine 10 mg tablet (Zyrtec) 10 mg PO PM 08/14/19 04/11/24 12/13/22 folic acid 1 mg tablet 1 mg PO QAM 08/14/19 04/11/24 12/14/22 06:00 losartan 50 mg tablet 50 mg PO PM 08/14/19 04/11/24 12/13/22 metoprolol succinate 25 mg 25 mg PO QAM 08/14/19 04/11/24 12/14/22 06:00 tablet,extended release 24 hr nitroglycerin 0.4 mg sublingual 0.4 mg sublingual UD PRN Chest Pain 08/14/19 04/11/24 Unknown tablet pantoprazole 40 mg tablet,delayed 40 mg PO QAM 08/14/19 04/11/24 12/14/22 06:00 release polyethylene glycol 3350 17 17 g PO DAILY PRN Constipation 08/14/19 04/11/24 12/09/21 gram/dose oral powder (Miralax) rosuvastatin 20 mg tablet 20 mg PO PM 08/14/19 04/11/24 12/13/22 cholecalciferol (vitamin D3) 25 25 mcg PO PM 05/22/20 04/11/24 12/13/22 mcg (1,000 unit) tablet (Vitamin D3) lorazepam 1 mg tablet 0.5 mg PO ONCE HS PRN Insomnia 05/22/20 04/11/24 03/21/21 ropinirole 0.25 mg tablet 0.25 mg PO HS 03/11/21 04/11/24 12/13/22 ferrous sulfate 325 mg (65 mg 325 mg PO QPM 12/05/21 04/11/24 12/11/22 iron) tablet (Iron (ferrous sulfate)) psyllium husk 3.4 gram/5.4 gram 1 tsp PO DAILY PRN Constipation 12/05/21 04/11/24 12/01/21 oral powder (Metamucil) metformin 1,000 mg tablet 1,000 mg PO BID 04/08/22 04/11/24 12/14/22 06:00 warfarin 2.5 mg tablet 5 mg PO 2XWK 06/21/22 04/11/24 12/08/22 amlodipine 2.5 mg tablet 2.5 mg PO QAM 01/26/24 04/11/24 Unknown calcipotriene 0.005 % topical cream 1 applic topical .BID UD 01/26/24 04/11/24 Unknown cyanocobalamin (vitamin B-12) 1,000 mcg PO DAILY 01/26/24 04/11/24 Unknown 1,000 mcg tablet (Vitamin B-12) duloxetine 60 mg capsule,delayed 60 mg PO QPM 01/26/24 04/11/24 Unknown release dutasteride 0.5 mg capsule 0.5 mg PO HS 01/26/24 04/11/24 Unknown tamsulosin 0.4 mg capsule 0.4 mg PO DAILY 02/27/24 04/11/24 Unknown warfarin 2.5 mg tablet 2.5 mg PO 5XWK 02/27/24 04/11/24 Unknown acetaminophen 325 mg tablet 650 mg (2 x 325 mg) PO QID PRN 02/29/24 04/11/24 Unknown mild pain (scale score 1-4) #0 tabs diclofenac sodium 1 % topical gel 4 g EXT Q8H #0 grams 02/29/24 04/11/24 Unknown (Voltaren Arthritis Pain) tramadol 50 mg tablet 25 - 50 mg (0.5 - 1 x 50 mg) PO 02/29/24 04/11/24 Unknown Q4H PRN #0 tabs methenamine hippurate 1 gram tablet 1 g PO BID #180 tabs 03/21/24 04/11/24 Unknown Active Medications Generic Name Dose Route Start Last Admin Trade Name Freq PRN Reason Stop Dose Admin Cefepime HCl 2,000 mg/ Syringe 20 mls @ 5 mls/min 04/11/24 21:00 04/12/24 09:33 IV 04/21/24 20:59 5 mls/min Q12H MIRANDA Administration Protocol Insulin Aspart 0 units 04/11/24 21:00 04/12/24 09:27 Insulin Aspart Per Unit Charge SC 05/11/24 20:59 Not Given ACHS MIRANDA
[2024-04-12] MEDS ORDERED: ACETAMINOPHEN 325 MG TAB PO PRN (13:47)
[2024-04-12] MEDS ORDERED: PSYLLIUM or GUAR GUM FIBER 4GM PACKET PO PRN (14:33)
[2024-04-12] MEDS ORDERED: WARFARIN SOD 5 MG TAB PO SCH (16:00)
[2024-04-12] MEDS: WARFARIN SOD 2.5 MG TAB PO SCH (16:23)
[2024-04-12] MEDS: ROSUVASTATIN CALCIUM 20 MG TAB PO SCH (21:24)
[2024-04-12] MEDS: rOPINIRole HCL 0.25 MG TABLET PO SCH (21:24)
[2024-04-12] MEDS: FINASTERIDE 5 MG TAB PO SCH (21:24)
[2024-04-12] MEDS: CETIRIZINE HCL 10 MG TABLET PO SCH (21:25)
[2024-04-12] MEDS: CHOLECALCIFEROL 25 MCG (1000 UNITS) TAB PO SCH (21:25)
[2024-04-12] MEDS: DULoxetine HCL 60 MG CAP PO SCH (21:25)
[2024-04-13 05:10] LABS: Hemoglobin 13.1 g/dl (14.0-18.0); Mean Corpuscular Hemoglobin 30.1 pg (25.0-34.0); Mean Corpuscular Hgb Conc 33.6 g/dL (32.0-36.0); Mean Corpuscular Volume 89.7 fL (80.0-100.0); Mean Platelet Volume 10.2 fL (9.4-12.4); Platelet Count 237 K/uL (130-400); RDW Coefficient of Variation 13.6 % (11.5-14.5); RDW Standard Deviation 44.7 fL (36.4-46.3); Red Blood Count 4.35 M/uL (4.70-6.10); White Blood Count 7.72 K/ul (4.8-10.8)
[2024-04-13 05:15] LABS: BUN Creatinine Ratio 18.8 (10-20); Creatinine Clr Calc Pharmacy 84.4 ml/min; Est GFR (African American) 97.1 ml/min; Est GFR (Non-African American) 83.8 ml/min; Phosphorus 3.5 mg/dl (2.5-4.9); Potassium 3.9 mmol/L (3.5-5.1)
[2024-04-13 05:32] LABS: Prothrombin Time 10.7 Seconds (9.0-12.0)
[2024-04-13 08:29] LABS: Prothrombin Time 10.9 Seconds (9.0-12.0)
[2024-04-13] MEDS: TAMSULOSIN HCL 0.4 MG CAP PO SCH (08:42)
[2024-04-13] MEDS: CYANOCOBALAMIN (B-12) 500 MCG TABLET PO SCH (08:42)
[2024-04-13] MEDS: METOPROLOL SUCC 25MG EXT REL TAB PO SCH (08:42)
[2024-04-13] MEDS: PANTOprazole 40 MG TAB PO SCH (08:42)
--- NOTE | 2024-04-13 12:58 | Hospitalist Progress Note ---
Date of Service April 13, 2024 Assessment & Plan (1) Complicated UTI (urinary tract infection): (2) Supratherapeutic INR: (3) Gross hematuria: (4) History of pulmonary embolism: (5) BPH (benign prostatic hyperplasia): (6) Dyslipidemia: (7) Sleep apnea: (8) Coronary artery disease: Plan Mr. Morfin is an 83-year-old male past medical history significant for CAD status post stent, HTN, HLD, history of PAF/PE/recurrent cryptogenic stroke on chronic Coumadin, history of retroperitoneal bleed, PVD with a history of thoracic aortic aneurysm, ABDULLAHI on CPAP at night, BPH with chronic UTI, [id number] diabetic. admitted for management of supratherapeutic INR, gross hematuria, and complicated UTI CT abdominal pelvis revealed .8 x 2.6 cm hyperdense focus within the dependent aspect of the bladder suggestive of clot. A coexistent urothelial lesion be difficult to completely exclude but is not identified. Moderately distended bladder. No hydronephrosis. No urinary calculi. Expected evolution of the previously described right iliopsoas intramuscular hematoma. Interval enlargement of an adjacent right adductor muscle suggestive of subacute intramuscular hemorrhage. Patient was started on CBI. Patient s/p vitamin K and Kcentra. Ortho consulted given the history of retroperitoneal bleed--no surgical intervention given subacute appearance and stable hgb. Urology plans to follow for now, stop CBI, and treat infection. Decision pending if inpatient cystoscopy will be pursued Otherwise, given stable hgb will resume warfarin as patient has risk factors for stroke. Will trend INR and start 2.5mg daily. Will need close follow up . Continue IV abx until mode results. #Acute Complicated UTI: #Gross Hematuria: no leukocytosis, does not appear toxic Previous urine cultures: 04/03/24 E.Coli, 01/26/24: GPC, 12/26/23 Enterobacte loacae Urine culture pending three way CBI inserted in ED; dark red blood noted at that time Continue cefepime Urology consulted, reviewed recommendations -No need CBI at this time -Plan to resume CIC, zuniga discontinued 2/2 clear urine Will likely discharge tomorrow #Supratherapeutic INR #Chronic anticoagulation #hx PE #recurrent CVA #cryptogenic stroke INR 3.3 on admission, given concern for expanding hematoma and hemtauria s/p vit K and kcentra Urine clearing at this time will resume warfarin without bridge -INR 1.0 today #Chronic normocytic Anemia #History of Retroperitoneal Bleed c/b R iliopsoas Hematoma #b12 deficiency Continue home folate, iron and b12 supplements Pt currently hemodynamically stable Abdomen.Pelvis CT: 3.8 x 2.6 cm hyperdense focus within the dependent aspect of the bladder suggestive of clot. A coexistent urothelial lesion be difficult to completely exclude but is not identified. Moderately distended bladder. No hydronephrosis. No urinary calculi. Expected evolution of the previously described right iliopsoas intramuscular hematoma. Interval enlargement of an adjacent right adductor muscle suggestive of subacute intramuscular hemorrhage. No active signs of hematoma on examination. 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 Admission and Anticipated Discharge Date Admission Date: April 11, 2024 Subjective NAEO Reports feeling much improved Physical Exam Constitutional: WD/WN, vitals as above Respiratory: normal respiratory effort, lungs clear to auscultation Cardiovascular: RRR, no murmur, no edema Gastrointestinal (Abdomen): normal bowel sounds, soft, nontender, no hepatosplenomegaly Results & Data Results & Data Vital Signs (Past 12 Hours) Vital Signs Temp Pulse Pulse Resp BP Pulse Ox O2 Del Method 04/13/24 12:14 36.5 C 79 18 131/78 95 Room Air 04/13/24 07:29 36.8 C 58 L 18 127/96 96 Room Air 04/13/24 03:29 36.4 C L 59 L 20 139/80 95 CPAP 04/13/24 03:23 60 12 96 Laboratory Results Short CBC 04/13/24 Range/Units 04:15 WBC 7.72 (4.8-10.8) K/ul Hgb 13.1 L (14.0-18.0) g/dl Hct 39.0 L (42.0-52.0) % Plt Count 237 (130-400) K/uL BMP 04/13/24 04:15 Sodium 137 Potassium 3.9 Chloride 103 Carbon Dioxide 29 BUN 15 Creatinine 0.80 Glucose 108 H Calcium 9.0 Medications Administered Home Medications Medication Instructions Recorded Confirmed Last Taken cetirizine 10 mg tablet (Zyrtec) 10 mg PO PM 08/14/19 04/11/24 12/13/22 folic acid 1 mg tablet 1 mg PO QAM 08/14/19 04/11/24 12/14/22 06:00 losartan 50 mg tablet 50 mg PO PM 08/14/19 04/11/24 12/13/22 metoprolol succinate 25 mg 25 mg PO QAM 08/14/19 04/11/24 12/14/22 06:00 tablet,extended release 24 hr nitroglycerin 0.4 mg sublingual 0.4 mg sublingual UD PRN Chest Pain 08/14/19 04/11/24 Unknown tablet pantoprazole 40 mg tablet,delayed 40 mg PO QAM 08/14/19 04/11/24 12/14/22 06:00 release polyethylene glycol 3350 17 17 g PO DAILY PRN Constipation 08/14/19 04/11/24 12/09/21 gram/dose oral powder (Miralax) rosuvastatin 20 mg tablet 20 mg PO PM 08/14/19 04/11/24 12/13/22 cholecalciferol (vitamin D3) 25 25 mcg PO PM 05/22/20 04/11/24 12/13/22 mcg (1,000 unit) tablet (Vitamin D3) lorazepam 1 mg tablet 0.5 mg PO ONCE HS PRN Insomnia 05/22/20 04/11/24 03/21/21 ropinirole 0.25 mg tablet 0.25 mg PO HS 03/11/21 04/11/24 12/13/22 ferrous sulfate 325 mg (65 mg 325 mg PO QPM 12/05/21 04/11/24 12/11/22 iron) tablet (Iron (ferrous sulfate)) psyllium husk 3.4 gram/5.4 gram 1 tsp PO DAILY PRN Constipation 12/05/21 04/11/24 12/01/21 oral powder (Metamucil) metformin 1,000 mg tablet 1,000 mg PO BID 04/08/22 04/11/24 12/14/22 06:00 warfarin 2.5 mg tablet 5 mg PO 2XWK 06/21/22 04/11/24 12/08/22 amlodipine 2.5 mg tablet 2.5 mg PO QAM 01/26/24 04/11/24 Unknown calcipotriene 0.005 % topical cream 1 applic topical .BID UD 01/26/24 04/11/24 Unknown cyanocobalamin (vitamin B-12) 1,000 mcg PO DAILY 01/26/24 04/11/24 Unknown 1,000 mcg tablet (Vitamin B-12) duloxetine 60 mg capsule,delayed 60 mg PO QPM 01/26/24 04/11/24 Unknown release dutasteride 0.5 mg capsule 0.5 mg PO HS 01/26/24 04/11/24 Unknown tamsulosin 0.4 mg capsule 0.4 mg PO DAILY 02/27/24 04/11/24 Unknown warfarin 2.5 mg tablet 2.5 mg PO 5XWK 02/27/24 04/11/24 Unknown acetaminophen 325 mg tablet 650 mg (2 x 325 mg) PO QID PRN 02/29/24 04/11/24 Unknown mild pain (scale score 1-4) #0 tabs diclofenac sodium 1 % topical gel 4 g EXT Q8H #0 grams 02/29/24 04/11/24 Unknown (Voltaren Arthritis Pain) tramadol 50 mg tablet 25 - 50 mg (0.5 - 1 x 50 mg) PO 02/29/24 04/11/24 Unknown Q4H PRN #0 tabs methenamine hippurate 1 gram tablet 1 g PO BID #180 tabs 03/21/24 04/11/24 Unknown Active Medications Generic Name Dose Route Start Last Admin Trade Name Freq PRN Reason Stop Dose Admin Cetirizine HCl 10 mg 04/12/24 21:00 04/12/24 21:25 Cetirizine Hcl 10 Mg Tablet PO 05/12/24 20:59 10 mg PM MIRANDA Administration Cyanocobalamin 1,000 mcg 04/13/24 09:00 04/13/24 08:42 Cyanocobalamin (B-12) 500 Mcg Tablet PO 05/13/24 08:59 1,000 mcg DAILY MIRANDA Administration Duloxetine HCl 60 mg 04/12/24 21:00 04/12/24 21:25 Duloxetine Hcl 60 Mg Cap PO 05/12/24 20:59 60 mg QPM MIRANDA Administration Finasteride 5 mg 04/12/24 21:00 04/12/24 21:24 Finasteride 5 Mg Tab PO 05/12/24 20:59 5 mg HS MIRANDA Administration Cefepime HCl 2,000 mg/ Syringe 20 mls @ 5 mls/min 04/11/24 21:00 04/13/24 08:47 IV 04/21/24 20:59 5 mls/min Q12H MIRANDA Administration Protocol Insulin Aspart 0 units 04/11/24 21:00 04/13/24 13:31 Insulin Aspart Per Unit Charge SC 05/11/24 20:59 Not Given ACHS MIRANDA Metoprolol Succinate 25 mg 04/13/24 09:00 04/13/24 08:42 Metoprolol Succ 25mg Ext Rel Tab PO 05/13/24 08:59 25 mg QAM MIRANDA Administration Pantoprazole Sodium 40 mg 04/13/24 09:00 04/13/24 08:42 Pantoprazole 40 Mg Tab PO 05/13/24 08:59 40 mg QAM MIRANDA Administration Ropinirole HCl 0.25 mg 04/12/24 21:00 04/12/24 21:24 Ropinirole Hcl 0.25 Mg Tablet PO 05/12/24 20:59 0.25 mg HS MIRANDA Administration Rosuvastatin Calcium 20 mg 04/12/24 21:00 04/12/24 21:24 Rosuvastatin Calcium 20 Mg Tab PO 05/12/24 20:59 20 mg PM MIRANDA Administration Tamsulosin HCl 0.4 mg 04/13/24 09:00 04/13/24 08:42 Tamsulosin Hcl 0.4 Mg Cap PO 05/13/24 08:59 0.4 mg DAILY MIRANDA Administration Vitamin D 25 mcg 04/12/24 21:00 04/12/24 21:25 Cholecalciferol 25 Mcg (1000 Units) Tab PO 05/12/24 20:59 25 mcg PM MIRANDA Administration Warfarin Sodium 2.5 mg 04/12/24 16:00 04/12/24 16:23 Warfarin Sod 2.5 Mg Tab PO 05/12/24 15:59 2.5 mg DAILY@1600 MIRANDA Administration
[2024-04-13] MEDS ORDERED: WARFARIN SOD 2.5 MG TAB PO SCH (16:00)
[2024-04-13] MEDS: LORazepam 0.5 MG TAB PO PRN (21:16)
[2024-04-14] MEDS: POLYETHYLENE (MIRALAX) 17 GM PACK PO PRN (06:24)
[2024-04-14 07:44] VITALS: RESP 18; TEMP 98.1; O2SAT 97
[2024-04-14 08:49] LABS: Hematocrit (blood only) 43.1 % (42.0-52.0); Hemoglobin 14.4 g/dl (14.0-18.0); Mean Corpuscular Hgb Conc 33.4 g/dL (32.0-36.0); Mean Corpuscular Volume 89.8 fL (80.0-100.0); Mean Platelet Volume 9.5 fL (9.4-12.4); Platelet Count 253 K/uL (130-400); RDW Coefficient of Variation 13.7 % (11.5-14.5); RDW Standard Deviation 45.9 fL (36.4-46.3)
[2024-04-14 09:16] LABS: INR 1.1 (0.9-1.1); Prothrombin Time 11.4 Seconds (9.0-12.0)
[2024-04-14 11:12] VITALS: PULSE 82
--- NOTE | 2024-04-14 15:22 | Discharge Summary ---
Discharge Summary Date of Service April 14, 2024 Principal Dx & Hospital Course #1 = Principal Diagnosis (1) Complicated UTI (urinary tract infection): (2) Supratherapeutic INR: (3) Gross hematuria: (4) History of pulmonary embolism: (5) BPH (benign prostatic hyperplasia): (6) Dyslipidemia: (7) Sleep apnea: (8) Coronary artery disease: Plan Mr. Morfin is an 83-year-old male past medical history significant for CAD status post stent, HTN, HLD, history of PAF/PE/recurrent cryptogenic stroke on chronic Coumadin, history of retroperitoneal bleed, PVD with a history of thoracic aortic aneurysm, ABDULLAHI on CPAP at night, BPH with chronic UTI, [id number] diabetic. admitted for management of supratherapeutic INR, gross hematuria, and complicated UTI CT abdominal pelvis revealed .8 x 2.6 cm hyperdense focus within the dependent aspect of the bladder suggestive of clot. A coexistent urothelial lesion be difficult to completely exclude but is not identified. Moderately distended bladder. No hydronephrosis. No urinary calculi. Expected evolution of the previously described right iliopsoas intramuscular hematoma. Interval enlargement of an adjacent right adductor muscle suggestive of subacute intramuscular hemorrhage. Patient was started on CBI.Patient s/p vitamin K and Kcentra. Ortho consulted given the history of retroperitoneal bleed--no surgical intervention given subacute appearance and stable hgb. Urology plans to follow for now, stop CBI, and treat infection.Cystoscopy will be pursued as an op. Otherwise, given stable hgb will resume warfarin as patient has risk factors for stroke. On day of discharge patient reports he is at his baseline and ambulating as he was at home, confirmed by neighbor. Patient states that he is going to resume with home health and he does not wish to pursue rehab. #Acute Complicated UTI: #Gross Hematuria: no leukocytosis, does not appear toxic Previous urine cultures: 04/03/24 E.Coli, 01/26/24: GPC, 12/26/[address] CBI inserted in ED; dark red blood noted at that time Continue cefepime Urology consulted, reviewed recommendations -No need CBI at this time -Plan to resume CIC, zuniga discontinued 2/2 clear urine Transition to augmentin po bid for 5 more days hold methenamine until course clear #Supratherapeutic INR #Chronic anticoagulation #hx PE #recurrent CVA #cryptogenic stroke INR 3.3 on admission, given concern for expanding hematoma and hemtauria s/p vit K and kcentra Urine clearing at this time will resume warfarin without bridge -INR 1.1 today #Chronic normocytic Anemia #History of Retroperitoneal Bleed c/b R iliopsoas Hematoma #b12 deficiency Continue home folate, iron and b12 supplements Pt currently hemodynamically stable Abdomen.Pelvis CT: 3.8 x 2.6 cm hyperdense focus within the dependent aspect of the bladder suggestive of clot. A coexistent urothelial lesion be difficult to completely exclude but is not identified. Moderately distended bladder. No hydronephrosis. No urinary calculi. Expected evolution of the previously described right iliopsoas intramuscular hematoma. Interval enlargement of an adjacent right adductor muscle suggestive of subacute intramuscular hemorrhage. No active signs of hematoma on examination. 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 Notes For Next Care Provider -Follow up with [facility] orthopedics for iliopsoas bursal mass -Follow up with Urology for cystoscopy 1-2 weeks Repeat INR in 3 days Medication Changes From Visit Augmentin BID 5 days Hold losartan Hold amlodipine Hold methenamine Admission HPI Per Admitting Provider Mr. Morfin is an 83-year-old male past medical history significant for CAD status post stent, HTN, HLD, history of PAF/PE/recurrent cryptogenic stroke on chronic Coumadin, history of retroperitoneal bleed, PVD with a history of thoracic aortic aneurysm, ABDULLAHI on CPAP at night, BPH with chronic UTI, [id number] diabetic. Presented to the ED with argenis hematuria. Patient is compliant with his Coumadin. INR found to be 3.3. Abdominal pelvis CT results: 3.8 x 2.6 cm hyperdense focus within the dependent aspect of the bladder suggestive of clot. A coexistent urothelial lesion be difficult to completely exclude but is not identified. Moderately distended bladder. No hydronephrosis. No urinary calculi. Expected evolution of the previously described right iliopsoas intramuscular hematoma. Interval enlargement of an adjacent right adductor muscle suggestive of subacute intramuscular hemorrhage. No leukocytosis and otherwise hemodynamically stable, does not appear toxic and lactic acid was normal. Kidney function normal. Patient was started on ceftriaxone in ED and a three-way Zuniga CBI was inserted. Discussed on the phone with Dr. Frances who recommended vitamin K 10 mg IV once now and followed by Sree with the orders that she has calculated. Given the history of retroperitoneal bleed. Patient with numerous urine cultures over the past few months 12/26/2023 enterobacte cloacae, 01/25 GPC, 04/03 E. coli. Patient will be admitted for further evaluation of supratherapeutic INR with urology consult and continued continuous bladder irrigation, continue with cefepime due to MDR, await further recommendations with urology. On examination no signs of active bleeding. Please see A/P for further details. Admission Exam Per Admitting Provider Neuro: AAOx4, PERRLA, no aphagia, memory changes, CNII-XII grossly intact HEENT: head normocephalic, moist mucus membranes CV: S1/S2, (-) M/G/R, (-) edema, cap refill < 3 seconds Resp: Lungs CTA in all avitia. On RA GI: Abdomen S/NT/ND, Ax4 bowel sounds, (-) CVA tenderness Musculoskeletal: 5/5 B/L UE strength, 5/5 B/L LE strength. No gait disturbance Skin: (-) rashes , (-) erythema. Psych: euthymic mood Discharge Exam Constitutional WD/WN, vitals as above Respiratory normal respiratory effort, lungs clear to auscultation Cardiovascular RRR, no murmur, no edema Gastrointestinal (Abdomen) normal bowel sounds, soft, nontender, no hepatosplenomegaly Neurologic PERRL, EOMI, accommodation nl, no face palsy, no dysarthria Updated Medication List Medication Instructions Recorded Confirmed Type cetirizine 10 mg tablet (Zyrtec) 10 mg PO PM 08/14/19 04/11/24 History folic acid 1 mg tablet 1 mg PO QAM 08/14/19 04/11/24 History losartan 50 mg tablet 50 mg PO PM 08/14/19 04/11/24 History metoprolol succinate 25 mg 25 mg PO QAM 08/14/19 04/11/24 History tablet,extended release 24 hr nitroglycerin 0.4 mg sublingual 0.4 mg sublingual UD PRN Chest Pain 08/14/19 04/11/24 History tablet pantoprazole 40 mg tablet,delayed 40 mg PO QAM 08/14/19 04/11/24 History release polyethylene glycol 3350 17 17 g PO DAILY PRN Constipation 08/14/19 04/11/24 History gram/dose oral powder (Miralax) rosuvastatin 20 mg tablet 20 mg PO PM 08/14/19 04/11/24 History cholecalciferol (vitamin D3) 25 25 mcg PO PM 05/22/20 04/11/24 History mcg (1,000 unit) tablet (Vitamin D3) lorazepam 1 mg tablet 0.5 mg PO ONCE HS PRN Insomnia 05/22/20 04/11/24 History ropinirole 0.25 mg tablet 0.25 mg PO HS 03/11/21 04/11/24 History ferrous sulfate 325 mg (65 mg 325 mg PO QPM 12/05/21 04/11/24 History iron) tablet (Iron (ferrous sulfate)) psyllium husk 3.4 gram/5.4 gram 1 tsp PO DAILY PRN Constipation 12/05/21 04/11/24 History oral powder (Metamucil) metformin 1,000 mg tablet 1,000 mg PO BID 04/08/22 04/11/24 History warfarin 2.5 mg tablet 5 mg PO 2XWK 06/21/22 04/11/24 History amlodipine 2.5 mg tablet 2.5 mg PO QAM 01/26/24 04/11/24 History calcipotriene 0.005 % topical cream 1 applic topical .BID UD 01/26/24 04/11/24 H istory cyanocobalamin (vitamin B-12) 1,000 mcg PO DAILY 01/26/24 04/11/24 History 1,000 mcg tablet (Vitamin B-12) duloxetine 60 mg capsule,delayed 60 mg PO QPM 01/26/24 04/11/24 History release dutasteride 0.5 mg capsule 0.5 mg PO HS 01/26/24 04/11/24 History tamsulosin 0.4 mg capsule 0.4 mg PO DAILY 02/27/24 04/11/24 History warfarin 2.5 mg tablet 2.5 mg PO 5XWK 02/27/24 04/11/24 History acetaminophen 325 mg tablet 650 mg (2 x 325 mg) PO QID PRN 02/29/24 04/11/24 Rx mild pain (scale score 1-4) #0 tabs diclofenac sodium 1 % topical gel 4 g EXT Q8H #0 grams 02/29/24 04/11/24 Rx (Voltaren Arthritis Pain) tramadol 50 mg tablet 25 - 50 mg (0.5 - 1 x 50 mg) PO 02/29/24 04/11/24 Rx Q4H PRN #0 tabs methenamine hippurate 1 gram tablet 1 g PO BID #180 tabs 03/21/24 04/11/24 Rx amoxicillin 500 mg-potassium 1 tab PO BID #11 tabs 04/14/24 Rx clavulanate 125 mg tablet Hospital Stay Data Consultations 04/11/24 16:04 ED Decision to Admit Stat 04/11/24 16:14 Consult Orthopedic Surgery Routine Consult Urology Routine Diagnostic Imagining Performed 04/11/24 11:52 CT abd pelvis IV con only Stat Pending Results Patient Have Any Pending Studies at Discharge: No Discharge Instructions Given to Patient (Per Discharging Provider) You were admitted for blood in your urine and found to have a urinary tract infection Please continue the following: -Augmentin 1 tablet by mouth two times a day with a meal until course complete -Please hold your methenamine until done with your antibiotics You were noted to have low/normal blood pressure without taking two of your blood pressure medications. Please hold amlodipine and losartan. Resume at discretion of your PCP Please follow up in 2 weeks with urology to schedule cystoscope Please resume home warfarin dosing and follow up with INR check in 3 days. Total Time Total Time Spent Total Time Spent (In Minutes): 45
[2024-04-14 15:57] VITALS: BP 165/81
== END 2024-04-14 16:44 | disposition home health service (06) | DRG 690 ==
LOC: ED 11:39 → 4W 16:29 → SUATTDRO 16:29 → 4W 18:14

== ENCOUNTER 2024-05-06 07:28 | Inpatient (IN) ==
--- NOTE | 2024-05-06 07:42 | Emergency Department Note ---
Impression & Plan Altered mental status, Anemia, Weakness, Elevated lactic acid level, Anticoagulated on Coumadin, Leukocytosis, Hypomagnesemia, Hypocalcemia, Elevated troponin ED Provider Note NAME: JUANY MALONE AGE: 83 SEX: M : 1940 ARRIVES VIA: Ambulance INFORMANT: [Patient][EMS, nursing] ED PROVIDER(S): [Tex Carr MD] CHIEF COMPLAINT: Fall HISTORY OF PRESENT ILLNESS: The patient is an 83-year-old male who was found at the side of his bed this morning by family. He had apparently fallen out of bed. He was noted to be covered in stool and was quite confused. He was not at his mental baseline. He was sent for evaluation. The patient really has no complaints at the present, he is unsure why he is here at the hospital. Given the circumstances, no further history obtainable. Of note, the patient was in our facility recently for high INR and hematuria. He has a history of complicated UTI. He is on warfarin daily. PMHx/PSHx/Social Hx: See Below PHYSICAL EXAM: GENERAL: Patient is in no acute distress. Covered in dry stool. HEENT: No acute trauma, normocephalic atraumatic, mucous membranes dry, no nasal congestion. NECK: No stridor, no adenopathy, no meningismus, trachea is midline. LUNGS: Clear to auscultation bilaterally, no wheeze, no rhonchi, breath sounds equal. HEART: Heart tones are quite distant. ABDOMEN: Soft, nontender, no peritonitis. EXTREMITIES: No cyanosis, full range of motion of all the joints without pain or difficulty. NEUROLOGIC: No speech slur, moves all extremities, confused. SKIN: No jaundice, no diaphoresis. Pelvis: Stable with rock. DIFFERENTIAL DIAGNOSIS: Intracranial bleeding, stroke, UTI, dehydration, electrolyte imbalance, anemia, medication reaction, among others. EMERGENCY DEPARTMENT PROCEDURES: MEDICAL DECISION MAKING: There is a slight leukocytosis, this could be consistent with infection or the stress of his presentation. Hemoglobin was low at around 11, this is a drop when looking back at previous testing. There was a normal platelet count. INR was over the therapeutic window at 4.3. Magnesium and calcium were both low. No renal failure. Lactic acid level was quite elevated at over 6. This lactic acid relation could be secondary to infection versus dehydration. There was no concerning liver enzyme elevation. The patient appeared to be in a euthyroid state. ECG showed a sinus rhythm, no ST elevation. Cardiac enzyme testing x 1 was elevated, this troponin elevation could be secondary to cardiac injury or just mismatch from his metabolic issues. Urinalysis showed some dehydration, no obvious infection. COVID, influenza and RSV test were negative. Chest x-ray did not show pneumonia or CHF. Head CT did not show acute bleed or mass effect. On exam, the patient appeared dehydrated. He was covered in dried stool, he was confused. The patient was aggressively managed given his presentation. Given my concerns for potential sepsis, the patient received 3 L of IV saline. This should meet for sepsis protocol with regard to IV fluid administration based on his actual body weight. He received IV cefepime as IV antibiotic therapy. He was given IV magnesium. He received IV calcium. The patient is doing well with our treatment. His vital signs have remained stable. His mentation seems to be improving. The patient is clearly in need of a hospital stay. My concerns for sepsis persist, although, I have found no source. He requires further hydration and care in the hospital. His hemoglobin will need to be trended. His troponin will need to be trended. I spoke with the patient and case management, the on-call hospitalist was consulted. Prior/Outside records/notes reviewed: Today's EMS notes describing his presentation and transport to this hospital. ECG per my interpretation: Indication was fall and weakness. The ECG shows a sinus rhythm with a first-degree AV block. The rate is 85. LVH is present. There are T wave inversions seen laterally. No ST elevation, no PVCs. The QTc is 495. Continuous Cardiac Monitoring per my interpretation: An order was placed for continuous cardiac monitoring. The monitor shows a rate of 88 with sinus rhythm with a first AV block. Imaging/x-ray results per my interpretation: Chest x-ray does not show mediastinal widening, pneumonia or pneumothorax. Chronic Medical/Social conditions affecting care: Advanced age, warfarin use. Care/Management discussed with: Case management, the on-call hospitalist. Level of care consideration(s): After review of the information above and other included data: --I believe the patient requires escalation of care to admission Critical Care Note: I have personally spent 46 minutes of critical care time in the direct management of this patient. This includes bedside care, interpretation of diagnostic studies, and testing, discussion with consultants, patient, and family members, and other required patient management activities. This 46 minutes is in excess of all separately billable procedures. DISPOSITION: Admission Past Med/Surg History Problem List Hematoma of extraperitoneal space Syncope and collapse Complicated UTI (urinary tract infection) Coronary artery disease follows with Sleep apnea cpap Intramuscular hematoma (Acute) Acute UTI (urinary tract infection) (Acute) Gross hematuria (Acute) Acute hip pain (Acute) First degree AV block Sinus tachycardia Retroperitoneal bleed Hematoma Contusion of leg, right (Acute) Recurrent UTI (urinary tract infection) Heme positive stool Stroke Migraine headache (Chronic) Urinary retention Incomplete emptying of bladder Elevated prostate specific antigen (PSA) Gastric polyp Encounter for pre-operative examination Encounter for pre-operative examination Colon polyp Anemia Anemia (Acute) Anemia Encounter for pre-operative examination Status post recent transurethral resection of prostate (Chronic) Status post lumbar laminectomy (Chronic) BPH (benign prostatic hyperplasia) (Chronic) History of pulmonary embolism (Chronic) early , post op complication > Warfarin Dyslipidemia (Chronic) Medical History Supratherapeutic INR Hypotension Hematuria Supratherapeutic INR Diabetes mellitus, type 2 On anticoagulant therapy warfarin daily Hard of hearing Peripheral neuropathy bilat legs Restless leg syndrome Urinary retention on occasion, meds help per pt Stroke 2018 > no residual effects > [facility] > was in therapy for reading for a while, all better now > doesn't see neuro anymore Myocardial Infarction early Pancreatic cyst just monitoring PAF (paroxysmal atrial fibrillation) Elevated INR T2DM (type 2 diabetes mellitus) Actinic keratosis History of SCC (squamous cell carcinoma) of skin removed History of basal cell carcinoma removed Chronic urinary tract infection Thoracic aortic aneurysm follows with Dr. Poole with [facility]> last checked around October 2020 > unsure of size Hypertension CVA (cerebral vascular accident) Surgical History History of cardiac cath several > late 1989's early s, last one 2007> no stents any time History of tooth extraction History of esophagogastroduodenoscopy (EGD) History of colonoscopy last 12/09/21 @ [facility] History of cataract surgery right Hx of tonsillectomy Family History Father Prostate cancer Diabetes Heart disease Hypertension Other No family history of adverse response to anesthesia Social History Smoking Status: Never smoker Second Hand Exposure: No; Do You Dip or Chew Tobacco: No; Tobacco Cessation Education Requested by Patient: No Hx Alcohol Use: No Hx Substance Use: No Preferred Language: Maori Communication Ability: Effective Utilization Management Rn Required: No Beliefs That Will Affect Care: None marital status: Current Living Situation: Spouse and Family Current Living Situation Comment: Lives with and son current occupational status: retired Other Information That Helps Us Care for You: No Feels Safe at Home: Yes Safety Concerns: Feels Safe At This Time Diet: regular Assistive Devices: Cane and Hearing Aid - Bilateral Allergies Allergies Allergy/AdvReac Type Severity Reaction Status Date / Time propoxyphene Allergy Intermediate Hallucinati Verified 02/27/24 23:05 ng omeprazole Allergy Unknown Unknown Verified 02/27/24 23:05 ELINOR Inhibitors AdvReac Mild Cough Verified 02/27/24 23:05 gabapentin AdvReac Mild Nausea Verified 02/27/24 23:05 Home Meds Home Medications Medication Instructions Recorded Confirmed cetirizine 10 mg tablet (Zyrtec) 10 mg PO PM 08/14/19 05/06/24 folic acid 1 mg tablet 1 mg PO QAM 08/14/19 05/06/24 losartan 50 mg tablet 50 mg PO PM 08/14/19 05/06/24 metoprolol succinate 25 mg 25 mg PO QAM 08/14/19 05/06/24 tablet,extended release 24 hr nitroglycerin 0.4 mg sublingual 0.4 mg sublingual UD PRN Chest Pain 08/14/19 05/06/24 tablet pantoprazole 40 mg tablet,delayed 40 mg PO QAM 08/14/19 05/06/24 release polyethylene glycol 3350 17 17 g PO DAILY PRN Constipation 08/14/19 05/06/24 gram/dose oral powder (Miralax) rosuvastatin 20 mg tablet 20 mg PO PM 08/14/19 05/06/24 cholecalciferol (vitamin D3) 25 25 mcg PO PM 05/22/20 05/06/24 mcg (1,000 unit) tablet (Vitamin D3) lorazepam 1 mg tablet 0.5 mg PO ONCE HS PRN Insomnia 05/22/20 05/06/24 ropinirole 0.25 mg tablet 0.25 mg PO HS 03/11/21 05/06/24 ferrous sulfate 325 mg (65 mg 325 mg PO QPM 12/05/21 05/06/24 iron) tablet (Iron (ferrous sulfate)) psyllium husk 3.4 gram/5.4 gram 1 tsp PO DAILY PRN Constipation 12/05/21 05/06/24 oral powder (Metamucil) metformin 1,000 mg tablet 1,000 mg PO BID 04/08/22 05/06/24 warfarin 2.5 mg tablet 5 mg PO 2XWK 06/21/22 05/06/24 amlodipine 2.5 mg tablet 2.5 mg PO QAM 01/26/24 05/06/24 calcipotriene 0.005 % topical cream 1 applic topical .BID UD 01/26/24 05/06/24 cyanocobalamin (vitamin B-12) 1,000 mcg PO DAILY 01/26/24 05/06/24 1,000 mcg tablet (Vitamin B-12) duloxetine 60 mg capsule,delayed 60 mg PO QPM 01/26/24 05/06/24 release dutasteride 0.5 mg capsule 0.5 mg PO HS 01/26/24 05/06/24 tamsulosin 0.4 mg capsule 0.4 mg PO DAILY 02/27/24 05/06/24 warfarin 2.5 mg tablet 2.5 mg PO 5XWK 02/27/24 05/06/24 Previous Rx's Medication Instructions Recorded acetaminophen 325 mg tablet 650 mg (2 x 325 mg) PO QID PRN 02/29/24 mild pain (scale score 1-4) #0 tabs diclofenac sodium 1 % topical gel 4 g EXT Q8H #0 grams 02/29/24 (Voltaren Arthritis Pain) tramadol 50 mg tablet 25 - 50 mg (0.5 - 1 x 50 mg) PO 02/29/24 Q4H PRN #0 tabs methenamine hippurate 1 gram tablet 1 g PO BID #180 tabs 03/21/24 Results & Data (ED) Vital Signs Vital Signs - 24 hr 05/06/24 07:14 05/06/24 07:35 05/06/24 07:35 Temperature 36.6 C 36.6 C Temperature Source Oral Pulse Rate 82 82 Pulse Rate [Bilateral Radial] Pulse Rate from SpO2 Sensor Pulse Rhythm Regular Pulse Rhythm [Bilateral Radial] Pulse Strength Normal Pulse Strength [Bilateral Radial] Pulse Strength [Bilateral] Normal Respiratory Rate 20 20 Respiratory Effort / Characteristics Non-Labored Spontaneous Respiratory Depth Normal Respiratory Pattern Regular Blood Pressure 119/81 Blood Pressure [Right Arm] Blood Pressure Mean Blood Pressure Mean [Right Arm] Blood Pressure Position Sitting Blood Pressure Position [Right Arm] Pulse Oximetry 94 94 94 Oxygen Delivery Method Room Air Room Air Room Air Sepsis Recent Fever Within 48 Hours No Sepsis New/Unexplained Change in Mental Status Yes Sepsis Action Taken by Nursing No Action Required 05/06/24 07:35 05/06/24 07:37 05/06/24 08:15 Temperature 36.6 C Temperature Source Oral Pulse Rate 80 83 Pulse Rate [Bilateral Radial] 80 Pulse Rate from SpO2 Sensor Pulse Rhythm Regular Pulse Rhythm [Bilateral Radial] Regular Pulse Strength Pulse Strength [Bilateral Radial] Normal Pulse Strength [Bilateral] Respiratory Rate 20 20 Respiratory Effort / Characteristics Non-Labored Spontaneous Respiratory Depth Normal Respiratory Pattern Regular Blood Pressure Blood Pressure [Right Arm] 121/80 Blood Pressure Mean Blood Pressure Mean [Right Arm] 93 Blood Pressure Position Blood Pressure Position [Right Arm] Lying Pulse Oximetry 94 95 Oxygen Delivery Method Room Air Room Air Sepsis Recent Fever Within 48 Hours Sepsis New/Unexplained Change in Mental Status Sepsis Action Taken by Nursing 05/06/24 08:24 05/06/24 08:30 05/06/24 08:39 Temperature Temperature Source Pulse Rate 87 88 Pulse Rate [Bilateral Radial] Pulse Rate from SpO2 Sensor 86 87 Pulse Rhythm Pulse Rhythm [Bilateral Radial] Pulse Strength Pulse Strength [Bilateral Radial] Pulse Strength [Bilateral] Respiratory Rate 23 19 Respiratory Effort / Characteristics Respiratory Depth Respiratory Pattern Blood Pressure 115/62 Blood Pressure [Right Arm] Blood Pressure Mean 81 Blood Pressure Mean [Right Arm] Blood Pressure Position Blood Pressure Position [Right Arm] Pulse Oximetry 94 97 Oxygen Delivery Method Sepsis Recent Fever Within 48 Hours Sepsis New/Unexplained Change in Mental Status Sepsis Action Taken by Alf Medications Current Medication List: was personally reviewed by me Laboratory Data Attestation: I reviewed the patient's lab results. 05/06/24 07:55 05/06/24 07:55 Lab Results 05/06/24 05/06/24 Range/Units 07:55 08:00 WBC 13.72 H (4.8-10.8) K/ul RBC 3.62 L (4.70-6.10) M/uL Hgb 10.9 L (14.0-18.0) g/dl Hct 33.9 L (42.0-52.0) % MCV 93.6 (80.0-100.0) fL MCH 30.1 (25.0-34.0) pg MCHC 32.2 (32.0-36.0) g/dL RDW Std Deviation 50.4 H (36.4-46.3) fL RDW Coeff of Argelia 14.7 H (11.5-14.5) % Plt Count 202 (130-400) K/uL MPV 10.5 (9.4-12.4) fL Immature Gran % (Auto) 0.4 % Neut % (Auto) 87.5 % Lymph % (Auto) 6.3 % Clay % (Auto) 5.6 % Eos % (Auto) 0.0 % Baso % (Auto) 0.2 % Neut # (Auto) 12.00 H (1.40-6.50) K/uL Lymph # (Auto) 0.86 L (1.20-3.40) K/uL Clay # (Auto) 0.77 H (0.11-0.59) K/uL Eos # (Auto) 0.00 (0.00-0.50) K/uL Baso # (Auto) 0.03 (0.00-0.20) K/uL Immature Gran # (Auto) 0.06 (0.01-0.20) K/uL PT 40.9 H (9.0-12.0) Seconds INR 4.3 H (0.9-1.1) APTT 37 H (21-31) Seconds PTT Ratio 1.4 Sodium 137 (136-145) mmol/L Potassium 3.9 (3.5-5.1) mmol/L Chloride 104 (98-107) mmol/L Carbon Dioxide 21 (21-32) mmol/L Anion Gap 12 H (3-11) BUN 27 H (6-23) mg/dl Creatinine 1.01 (0.6-1.4) mg/dl Est Cr Clr Drug Dosing 69.1 ml/min eGFR 74.72 BUN/Creatinine Ratio 26.7 H (10-20) Glucose 223 H (70-99(Fasting)) mg/dl Lactate 6.5 H* (0.4-2.0) mmol/L Calcium 8.5 L (8.6-10.3) mg/dl Magnesium 1.6 L (1.7-2.4) mg/dl Total Bilirubin 0.8 (0.2-1.0) mg/dl AST 15 (13-39) U/L ALT 12 (7-52) U/L Alkaline Phosphatase 87 (34-104) U/L Ammonia 26.0 (18-72) umol/L Total Creatine Kinase 140 (30-223) U/L Troponin I High Sens 64.4 H* (0-20) pg/ml Total Protein 5.4 L (6.0-8.3) gm/dl Albumin 3.7 (3.4-5.0) gm/dl Globulin 1.7 L (2.5-4.0) gm/dl Albumin/Globulin Ratio 2.2 H (0.9-2) Procalcitonin 0.09 (0-0.5) ng/ml TSH 0.771 (0.300-4.500) uIu/ml Administered Medications Prothrombin Complex Concent ( (Human) 3,500 units/ Syringe) 140 mls @ 10 mls/min IV 1345 MIRANDA; Protocol Stop: 05/06/24 16:00 Last Admin: 05/06/24 14:12 Dose: 10 mls/min Documented By: CEF Insulin Aspart (Insulin Aspart Per Unit Charge) 0 units SC ACHS [facility] Stop: 06/05/24 11:54 Last Admin: 05/06/24 13:39 Dose: Not Given Documented By: CEF Metoprolol Succinate (Metoprolol Succ 25mg Ext Rel Tab) 25 mg PO QAM [facility] Stop: 06/05/24 12:14 Last Admin: 05/06/24 13:42 Dose: 25 mg Documented By: CEF Discontinued Medications Sodium Chloride (Nss) 1,000 mls @ 999 mls/hr IV .Q1H1M ONE Stop: 05/06/24 09:16 Last Infusion: 05/06/24 11:20 Dose: Infused Documented By: Admin: 05/06/24 09:18 Dose: 999 mls/hr Documented By: Infusion: 05/06/24 09:18 Dose: Infused Documented By: Admin: 05/06/24 08:21 Dose: 999 mls/hr Documented By: KLAUDIA Cefepime HCl (Maxipime 2000mg) 2,000 mg in 20 mls @ 5 mls/min IV NOW STA Stop: 05/06/24 08:23 Last Admin: 05/06/24 09:19 Dose: 5 mls/min Documented By: CAROLEE Sodium Chloride (Nss) 1,000 mls @ 999 mls/hr IV .Q1H1M ONE Stop: 05/06/24 09:25 Last Infusion: 05/06/24 11:20 Dose: Infused Documented By: Admin: 05/06/24 09:31 Dose: 999 mls/hr Documented By: CAROLEE Magnesium Sulfate/Dextrose (Magnesium Sulfate / D5w) 1 gm in 100 mls @ 100 mls/hr IV NOW STA Stop: 05/06/24 09:35 Last Infusion: 05/06/24 11:19 Dose: Infused Documented By: Admin: 05/06/24 09:29 Dose: 100 mls/hr Documented By: CAROLEE Calcium Gluconate () 1,000 mg in 60 mls @ 240 mls/hr IV NOW STA Stop: 05/06/24 08:50 Last Infusion: 05/06/24 11:19 Dose: Infused Documented By: Admin: 05/06/24 09:29 Dose: 240 mls/hr Documented By: CAROLEE Sodium Chloride (Nss) 1,000 mls @ 999 mls/hr IV .Q1H1M ONE Stop: 05/06/24 09:56 Last Infusion: 05/06/24 11:20 Dose: Infused Documented By: Admin: 05/06/24 09:19 Dose: 999 mls/hr Documented By: CAROLEE Sodium Chloride (Nss) 500 mls @ 999 mls/hr IV .Q31M ONE Stop: 05/06/24 10:45 Last Infusion: 05/06/24 11:56 Dose: Infused Documented By: Admin: 05/06/24 11:21 Dose: 999 mls/hr Documented By: CEF Phytonadione 10 mg/ Dextrose 51 mls @ 102 mls/hr IV ONE ONE Stop: 05/06/24 13:22 Last Admin: 05/06/24 13:48 Dose: Not Given Documented By: CEF Phytonadione 5 mg/ Dextrose 50.5 mls @ 101 mls/hr IV ONE ONE Stop: 05/06/24 13:32 Last Infusion: 05/06/24 14:36 Dose: Infused Documented By: Admin: 05/06/24 13:51 Dose: 101 mls/hr Documented By: CEF Imaging Data Radiologist's Impression: Chest X-Ray 05/06/24 07:37 SINGLE VIEW CHEST CLINICAL HISTORY: Generalized weakness. FINDINGS: 2 AP, portable, upright chest radiographs are compared to study dated 04/03/2024. An electronic device projects over the left lower chest. The heart is enlarged. The pulmonary vasculature is noncongested. There is minimal bibasilar atelectasis. The lungs and pleural spaces are otherwise clear. No pneumothorax is seen. The skeletal structures are osteopenic. The bony thorax is grossly intact. Fusion hardware is seen in the lumbar spine. IMPRESSION: Cardiomegaly with no active disease in the chest. ACT 112: Negative or not required by law. Electronically signed by: Tex Serrano M.D. 05/06/2024 8:[address] 05/06/24 07:37 CT SCAN OF THE BRAIN WITHOUT IV CONTRAST CLINICAL HISTORY: Fall. COMPARISON STUDY: CT of the brain dated 12/24/2017. TECHNIQUE: Unenhanced axial CT scan of the brain is performed from the vertex to the skull base. A dose lowering technique was utilized adhering to the principles of ALARA. CT DOSE: 703.85 mGy.cm FINDINGS: Brain parenchyma: There is age-related involutional change noting moderate subcortical and periventricular microangiopathic disease. There is no hemorrhage, mass effect, or evidence of acute territorial ischemia by CT criteria. A chronic lacunar infarct is noted in the left thalamus. Parks-white matter differentiation is preserved. No extra-axial fluid collection is seen. Ventricles, sulci, cisterns: Prominent secondary to involutional change. Intracranial vasculature: There is atherosclerotic calcification of the cavernous carotid and vertebral arteries. Calvarium: Unremarkable. Sinuses and mastoids: The paranasal sinuses are clear. The mastoid air cells are well pneumatized. Orbits: The bony orbits are grossly intact. There is a right ocular lens implant. IMPRESSION: There is no hemorrhage, mass effect, or evidence of acute territorial ischemia by CT criteria. ACT 112: Negative or not required by law. Electronically signed by: Tex Serrano M.D. 05/06/2024 8:25 AM Discharge Plan Visit Data Chief Complaint: Trauma ED Provider: Tex Carr Discharge Problem: Altered mental status, Anemia, Weakness, Elevated lactic acid level, Anticoagulated on Coumadin, Leukocytosis, Hypomagnesemia, Hypocalcemia, Elevated troponin Patient Disposition: Admitted As Inpatient Condition: Serious Discharge Instructions Interventions: ED Discharge Assessment Last Done: 05/06/24 11:40
--- OUTSIDE RECORDS SUMMARY | 2024-05-06 08:15 | External Medical Summary | Summary of Care ---
Author Name Unknown Organization [facility] Address [address] [place] [address] Phone [phone] Care Team Providers Care Painter Aircraft Name Role Phone Anurag Mora MD Primary Care Provider + Reason for Visit * Reason Onset Date Comments Order Request 01/31/2024 Catheters see my note Encounter Details Date Type Department Care Team (Late st Contact Info) Description 01/31/2024 Telephone General Internal Medicine [facility] 200 [facility] [place] [address] Anurag Mora MD 200 [facility] [place] [id number] Order Request (Catheters see my note) Allergies Active Allergy Reactions Criticality Noted Date Comments Deandre Inhibitors Cough Medium 05/25/2008 Propoxyphene N-Acetaminophen Nausea/vomiting Low 04/26/2010 Gabapentin Nausea/vomiting Low 04/10/2011 Omeprazole 12/05/2002 bad side effects Propoxyphene High 12/26/2023 Hallucination documented as of this encounter (statuses as of 05/01/2024) Medications Medication Sig Dispensed Refills Start Date End Date Status FOLIC ACID TABS 1 MG ORIndications:Acute [place], anterior wall (HCC) 1 TABLET DAILY 30 [...] 10 cm every night at bedtime. Active ShipziTouch Verio Flex System w/Device KitIndications:High blood sugar,Type 2 diabetes mellitus with hemoglobin A1c goal of less than 7.0% ([facility]) Use as directed. Use to test blood [...] in the morning. Active OneTouch Delica Plus [id number] :Type 2 diabetes mellitus with hemoglobin A1c goal of less than 7.0% ([facility]),High blood sugar USE TO CHECK GLUCOSE ONCE DAILY 100 Each 3 08/22/2023 Active OneTouch Verio In Vitro Strip (Glucose Blood)Indications:Ty pe 2 diabetes mellitus with hemoglobin A1c goal of less than 7.0% ([facility]),High blood sugar USE 1 STRIP TO CHECK [...] 11/22/2023 Active Additional Information Patient taking differently: [facility], Reported on 11/29/2023 documented as of this encounter (statuses as of 05/01/2024) Active Problems Problem Noted Date Diagnosed Date [...] as of this encounter (statuses as of 05/01/2024) Resolved Problems Problem Noted Date Diagnosed Date Resolved Date Sinus pause 07/26/2018 10/16/2018 History of malignant neoplasm of skin 05/02/2018 04/08/2019 History of migraine 05/02/2018 04/08/20 19 Cryptogenic stroke 01/21/2018 9 Anticoagulated on warfarin 01/21/2018 0 08/05/2021 Prediabetes 08/28/2017 06/30/2021 Overview: Per Prediabetes protocol #1 RLL 1.4 cm nodule 05/04/2011 12/01/2017 Overview: 08/2009 CT -- 78t30hd 11/2012 CT -- 11x8mm, f/u in 18 [...] surveillance.- tubular adenoma Migraine without aura 05/15/20052017 terminal gauger current use of ant icoagulant therapy 07/08/2003 [...] as of this encounter (statuses as of 05/01/2024) Immunizations Name Administration Dates Next Due COVID-19 mRNA, LNP-s, No Pre serve, 2-Dose Series ([employer]) 04/13/2021,09/11/2020,08/21/2020 COVID-19, LNP-s, No Preserve , Cholo-sucrose, Ages 12+ (Pfizer) 10/20/2021 Covid-19, Mrna, Lnp-s, Pf, B ivalent, 30 Mcg, IM, 12 yrs and above (Pfizer) 03/29/2022 H1N1 2009 Influenza, IM 07/02/2009 Pneumococcal Conjugate Vacc, 13 Valent (Prevnar) 10/06/2015 Pneumococcal Polysaccharide PPV23 (Pneumovax) 06/08/2008 Season Influenza, Quad, PF, Adjuvanted, 65+ Yrs, IM (FLUAD) 03/19/2020 Seasonal Influenza Vac., MDV , IM, 0.5 mL (Fluzone) 04/01/2015,03/18/2014,03/29/2013,03/16,05/04/2011,05/05/2010,05/10/20 09,05/25/2008,05/09/2007,05/14/2006 03/18/2015 Seasonal Influenza, PF, 6 M & above, IM , (FluLaval or Fluzone) 04/17/2018 Seasonal Influenza, Quadriva lent Hd (Fluzone Hd) 04/11/2023,03/23/2022 Seasonal Influenza, Quadriva lent Hd, 65+ Yrs 03/15/2021 Seasonal Influenza, Quadriva lent, No Preserve, IM 03/30/2017,03/28/2016 Seasonal Influenza, Trivalen t, Adjuvanted, 65+ YRS, [...] encounter Miscellaneous Notes * Telephone Encounter - Yvette Thomas, MED ASSIST - 01/31/2024 3:23 PM EDT Spoke with Hoa. She states that her brain isn't working correctly right now. She is going to call us back with who previously ordered them, the type they are and the quantity they typically receive. * Telephone Encounter - Anurag Mora MD - 01/31/2024 2:22 PM EDT What type of catheters? Who was ordering prior? How many are they looking to get? * Telephone Encounter - Jane Escalante OSA - 01/31/2024 1:49 PM EDT Patients calling patient is in the hospital and they are talking about d/c'ing him today - patient gets catheters by mail order and they only have 3 left. She is requesting call back - needs to order more through [employer]. Please return call. [phone] Thank you. documented in this encounter Plan of Treatment Upcoming Encounters Date Type Department Care Team (Late st Contact Info) Description 05/08/2024 6:30 AM EDT Anticoagulation Centralized Clinical Pharm[facility] Services, Ney Castañeda [address] [place] [address] [place] [address] [facility] [address] [place] [address] 05/19/2024 9:00 AM EST Office Visit Orthopaedics [facility] [address] [facility] [place] [address] Norm Galan, DO [address] [facility] [place] [address] 05/27/2024 8:15 AM EST Office Visit MOHS Surgery [facility] [address] [facility] [address] Jewell Pastor MD [address] [place] [address] [place] [address] 06/23/2024 2:30 PM EST Office Visit Cardiology, [facility] [address] [facility] [place] [address] Juancho Nelson, DO [address] [place] [address] 10/28/2024 2:40 PM EDT Office Visit General Internal Medicine [address] [place] [address] Anurag Mora MD [address] [place] [address] [place] [address] 01/15/2025 1:30 PM EDT Office Visit Neurology [address] [place] [address] Evelyn Mcgill PA-C [facility] [place] [id number] Scheduled Procedures Name Priority Associated Diagnoses Date/Ti me COLONOSCOPY FLEXIBLE PROXIMA L DIAGNOSTIC Recall History of colonic polyps Health Maintenance Due Date Last Done Comments Adult Wellness Visit 05/26/2023 05/26/2022, 05/25/20 21 Depression Screening 05/26/2023 05/26/2022 Albumin/Creatinine Ratio 07/27/2023 07/27/2022, 0208/2021 HbA1c 02/15/2024 08/17/2023, 01/14, 07/27/2022, Additional history [...] this encounter Medical Devices Implanted Type Area Scraper Tender Device Identifier Shelf Expiration Date Model / Serial / Lot Lens Intraoc 18.0 - [id number] - [id number] Implanted:Qty: 1 on 12/11/2017 by Bryan lAfaro MD at OR [facility] Right: Eye [employer] 07/15/2021 [id number] / [id number] / [id number] Clip Quick 2.8mm 230cm - [id number] Implanted:Qty: 1 on 08/11/2020 by Anaid Powell, DO at ENDOSCOPY [facility] [employer] 09/15/2022 HX-202UR.A / / [id number] Clip Quick 2.8mm 230cm - [id number] Implanted:Qty: 1 on 08/11/2020 by Anaid Powell, DO at ENDOSCOPY [facility] [employer] 09/15/2022 HX-202UR.A / / [id number] Clip Quick 2.8mm 230cm - [id number] Implanted:Qty: 1 on 08/11/2020 by Anaid Powell, DO at ENDOSCOPY [facility] [employer] 09/15/2022 HX-202UR.A / / [id number] Clip Quick 2.8mm 230cm - [id number] Implanted:Qty: 1 on 08/11/2020 by Anaid Powell, DO at ENDOSCOPY [facility] [employer] 09/15/2022 HX-UR.A / / [id number] documented as of this encounter Advance Directives * Full Code (Latest Code Status on File) Date Activated Date Inactivated Comments 12/11/2017 12:38 PM 12/11/2017 7:16 PM This order reflects the patients wishes and were consensually agreed upon. Care Teams Painter Aircraft Relationship Specialty Start Date End Date Anurag Mora MD 200 [facility], [place] [address] PCP - General Internal Medicine 05/06/21 documented as of this encounter
--- OUTSIDE RECORDS SUMMARY | 2024-05-06 08:15 | External Medical Summary | Summary of Care ---
Author Name Unknown Organization [facility] Address [address] [facility] [address] Phone [phone] Care Team Providers Care Glass Silverer Name Role Phone Anurag Mora MD Primary Care Provider + Reason for Visit * Reason Comments Dosage Adjustment Via Phone (anticoag Cl inic) Encounter Details Date Type Department Care Team (Late st Contact Info) Description 05/01/2024 6:30 AM EDT Anticoagulation Centralized Clinical Pharmacy Services, Ney Castañeda [address] [place] [address] [place] [address] [facility], [address] [place] [address] H/O ischemic multifocal posterior circulation stroke*; History [...] Status FOLIC ACID TABS 1 MG ORIndications:Acute [place], anterior wall (HCC) 1 TABLET DAILY 30 [...] 10 cm every night at bedtime. Active [employer]ureTo[employer]vention Verio Flex System w/Device KitIndications:High blood sugar,Type 2 diabetes mellitus with hemoglobin A1c goal of less than 7.0% ([facility]) Use as directed. Use to [...] in the morning. Active OneTouch Delica Plus [id number] :Type 2 diabetes mellitus with hemoglobin A1c [...] Tablet (Coumadin)Indication s:PAF (paroxysmal atrial fibrillation) ([facility]) TAKE 2 TABLETS BY MOUTH ON SUNDAY AND 1 TABLET ON OTHER DAYS OF THE WEEK OR DIRECTED BY COAG CLINIC 104 Tablet 2 11/22/2023 Active metFORMIN HCl 1000 MG Oral Tablet (Glucophage)Indicati ons:High blood sugar,Type 2 diabetes mellitus with hemoglobin A1c goal of less than 7.0% ([facility]) TAKE 1 TABLET BY MOUTH [...] migraine 05/02/2018 04/08/20 19 Cryptogenic stroke 01/21/2018 04/ 9 Anticoagulated on warfarin 01/21/2018 0 08/05/2021 Prediabetes 08/28/2017 06/30/2021 Overview: Per Prediabetes protocol #1 RLL 1.4 cm nodule 05/04/2011 12/01/2017 Overview: 08/2009 CT -- 05x11pc 11/2012 CT -- 11x8mm, f/u in 18 [...] mRNA, LNP-s, No Pre serve, 2-Dose Series ([employer]) 04/13/2021,09/11/2020,08/21/2020 COVID-19, LNP-s, No Preserve , Cholo-sucrose, Ages 12+ (Pfizer) 10/20/2021 Covid-19, Mrna, Lnp-s, Pf, B ivalent, 30 Mcg, IM, 12 yrs and above (Pfizer) 03/29/2022 H1N1 2009 Influenza, IM 07/02/2009 Pneumococcal Conjugate Vacc, 13 Valent (Prevnar) 10/06/2015 Pneumococcal Polysaccharide PPV23 (Pneumovax) 06/08/2008 Season Influenza, Quad, PF, Adjuvanted, 65+ Yrs, IM (FLUAD) 03/19/2020 Seasonal Influenza Vac., MDV , IM, 0.5 mL (Fluzone) 04/01/2015,03/18/2014,03/29/2013,03/16,05/04/2011,05/05/2010,05/10/20,05/25/2008,05/09/2007,05/14/2006 03/18/2015 Seasonal Influenza, PF, 6 M & [...] as of this encounter Progress Notes * Shivani Douglas, [facility] - 05/01/2024 9:49 AM EDT Contacts Contact Date/Time Type Contact Phone/Fax 05/01/2024 09:49 AM EDT Phone (Outgoing) Arnulfo Morfin (Self) [phone] (H) Subjective Advised patient to contact Anticoagulation Clinic if any unusual bruising or bleeding, recent illness, changes in medication, or questions/concerns. PT/INR results, Coumadin dose instructions, and next PT/INR date communicated as noted by Pharmacist: Yes SHIVANI DOUGLAS CPhT 05/01/2024, 9:49 AM * Jewell Barahona [facility] - 05/01/2024 8:46 AM EDT Images from the original note were not included. Coumadin Clinic (region specific) Objective Current Warfarin Dose As of 05/01/2024 Warfarin maintenance plan: 5 mg (2.5 mg x 2) every Shara, Sat; 2.5 mg (2.5 mg x 1) all other days INR Result As of 05/01/2024 INR goal: 2.0-3.0 INR used for dosin.4 (04/30/2024) Assessment & Plan Warfarin Plan As of 05/01/2024 Full warfarin instructions: 05/01: Hold; Otherwise 5 mg every Shara, Sat; 2.5 mg all other days Next INR check: 05/07/2024 Repeat PT/INR in 1 week(s) Weekly dose: not changed Additional Dosing Information: Description (Takes in AM) Omni 1.25mg MWF, 2.5mg all other days - Bactrim DS Tech to contact patient with dose instructions as noted. Jewell Barahona [facility] 05/01/2024, 8:46 AM * Phoebe Pandya CPhT - 04/30/2024 10:24 AM EDT Caller's name: Alejandrina Preferred call back number(OFFICE NUMBER FOR ): [phone] Reason for call: [facility]. Result is 3.4 which was drawnon 04/30/24. Patient is not being discharged. Thank you, Phoebe Pandya [facility] Pathology Secretary II [facility] Services ([facility]) [phone] 04/30/2024,10:24 AM documented in this encounter Plan of Treatment Upcoming Encounters Date Type Department Care Team (Late st Contact Info) Description 05/08/2024 6:30 AM EDT Anticoagulation Centralized Clinical Pharmacy Services, Ney Castañeda [address] [place] [address] [place] [address] [facility], [address] [place] [address] 05/19/2024 9:00 AM EST Office Visit Orthopaedics [facility] [address] [place] [address] Norm Galan, DO [address] [place] [address] 05/27/2024 8:15 AM EST Office Visit MOHS Surgery [facility] 200 [facility] [place] [address] Jewell Pastor MD [address] [place] [address] [place] [address] 06/23/2024 2:30 PM EST Office Visit Cardiology, [facility] 132 [facility] [place] [address] Juancho Nelson, DO [address] [place] [address] 10/28/2024 2:40 PM EDT Office Visit General Internal Medicine [facility] 200 [facility] [place] [address] Anurag Mora MD 200 [facility] [place] [address] 01/15/2025 1:30 PM EDT Office Visit Neurology [facility] 200 [facility] [place] [address] Evelyn Mcgill PA-C [address] [facility] [place] [address] Scheduled Procedures Name Priority Associated Diagnoses Date/Ti me COLONOSCOPY FLEXIBLE PROXIMA L DIAGNOSTIC Recall History of colonic polyps Health Maintenance Due Date Last Done Comments Adult Wellness Visit 05/26/2023 05/26/2022, 05/25/20 21 Depression Screening 05/26/2023 05/26/2022 Albumin/Creatinine Ratio 07/27/2023 07/27/2022, 08/2021 HbA1c 02/15/2024 08/17/2023, 01/14, 07/27/2022, Additional history exists COVID-19 Vaccine ( season) 2024 04/30/2023, 03/29/2022, 10/20/2021, Additional history [...] encounter Medical Devices Implanted Type Area Director Sales And Trade Marketing Device Identifier Shelf Expiration Date Model / Serial / Lot Lens Intraoc 18.0 - [id number] - [id number] Implanted:Qty: 1 on 12/11/2017 by Bryan Alfaro MD at [facility] Right: Eye [employer] 07/15/2021 [id number] / [id number] / [id number] Clip Quick 2.8mm 230cm - [id number] Implanted:Qty: 1 on 08/11/2020 by Anaid Powell DO at ENDOSCOPY [facility] [employer] [facility] 09/15/2022 HX-202UR.A / / [id number] Clip Quick 2.8mm 230cm - [id number] Implanted:Qty: 1 on 08/11/2020 by Anaid Powell DO at ENDOSCOPY [facility] [employer] [facility] 09/15/2022 HX-202UR.A / / [id number] Clip Quick 2.8mm 230cm - [id number] Implanted:Qty: 1 on 08/11/2020 by Anaid Powell DO at ENDOSCOPY [facility] [employer] [facility] 09/15/2022 HX-202UR.A / / [id number] Clip Quick 2.8mm 230cm - [id number] Implanted:Qty: 1 on 08/11/2020 by Anaid Powell DO at ENDOSCOPY [facility] [employer] [facility] 09/15/2022 HX-202UR.A / / [id number] documented as of this encounter Procedures Procedure Name Priority Date/Time Associated Diagnosis Comments OUTSIDE LAB-PT/INR Routine 04/30/2024 documented in this encounter Results * OUTSIDE LAB-PT/INR (04/30/2024) INR-OUTSIDE LAB 3.4 History Per Patient LABORATORY documented in this [...] and were consensually agreed upon. Care Teams Glass Silverer Relationship Specialty Start Date End Date Anurag Mora MD [address] [place] [address] PCP - General Internal Medicine 05/06/21 documented as of this encounter
[2024-05-06] MEDS ORDERED: CEFEPIME 2,000 MG in SYRINGE 7.5 ML IV STA (08:16)
--- OUTSIDE RECORDS SUMMARY | 2024-05-06 08:16 | External Medical Summary | Summary of Care ---
Author Name Unknown Organization [facility] Address [address] [place] [address] Phone [phone] Care Team Providers Care Road Freight Firer Name Role Phone Anurag Mora MD Primary Care Provider + Reason for Referral * Evaluate & Treat - Unlimited Visits (Within 10 days (routine)) - Authorized Specialty Diagnoses / Procedures Referred By Candi poe Referred To Contact Orthopaedic Surgery / Orthopedics Diagnoses Iliopsoas bursitis of right hip Closed nondisplaced fracture of lesser trochanter of right femur, initial encounter ([facility]) Fidencio Clemente MD [address] [place] [address] Referral ID Status Reason Start Date Expiration Date Visits Requested Visits Authorized [id number] Authorized Specialty Services Required 4 [phone] Question Answer Referral Priority Within 10 days (routine) Where should this appointment be scheduled? [facility] What body part is the patient being seen for? Hip What condition is the patient being seen for? Fracture including related infection Reason for Visit * Reason Onset Date Comments Referral 04/24/2024 Encounter Details Date Type Department Care Team (Late st Contact Info) Description 04/24/2024 Telephone Orthopaedics [facility] [address] [place] [address] Norm Galan DO [address] [place] [address] Referral Allergies Active Allergy Reactions Criticality Noted Date Comments Deandre Inhibitors Cough Medium 05/25/2008 Propoxyphene N-Acetaminophen Nausea/vomiting Low 04/26/2010 Gabapentin Nausea/vomiting Low 04/10/2011 Omeprazole 12/05/2002 bad side effects Propoxyphene High 12/26/2023 Hallucination documented as of this encounter (statuses as of 04/24/2024) Medications Medication Sig Dispensed Refills Start Date [...] in the morning. Active OneTouch Delica Plus [id number] :Type 2 diabetes mellitus with hemoglobin A1c [...] as of this encounter (statuses as of 04/24/2024) Active Problems Problem Noted Date Diagnosed Date [...] as of this encounter (statuses as of 04/24/2024) Resolved Problems Problem Noted Date Diagnosed Date Resolved Date Sinus pause 07/26/2018 10/16/2018 History of malignant neoplasm of skin 05/02/2018 04/08/2019 History of migraine 05/02/2018 04/08/20 19 Cryptogenic stroke 01/21/2018 9 Anticoagulated on warfarin 01/21/2018 0 08/05/2021 Prediabetes 08/28/2017 06/30/2021 Overview: Per Prediabetes protocol #1 RLL 1.4 cm nodule 05/04/2011 12/01/2017 Overview: 08/2009 CT -- 35e55yk 11/2012 CT -- 11x8mm, f/u in 18 [...] surveillance.- tubular adenoma Migraine without aura 05/15/20052017 tank terminal gauger current use of ant icoagulant [...] as of this encounter (statuses as of 04/24/2024) Immunizations Name Administration Dates Next Due COVID-19 [...] MDV , IM, 0.5 mL (Fluzone) 04/01/2015,03/18/2014,03/29/2013,03/16,05/04/2011,05/05/2010,05/10/20 09,05/25/2008,05/09/2007,05/14/2006,1 03/18/2015 Seasonal Influenza, PF, 6 M & above, IM , (FluLaval or Fluzone) 04/17/2018 Seasonal Influenza, Quadriva lent Hd (Fluzone Hd) 04/11/2023,03/23/2022 Seasonal Influenza, Quadriva lent Hd, 65+ Yrs 03/15/2021 Seasonal Influenza, Quadriva lent, No Preserve, IM 03/30/2017,03/28/2016 Seasonal Influenza, Trivalen t, Adjuvanted, 65+ YRS, PF, (Fluad) 04/08/2019 TD - Tetanus/Diptheria (ADULT) 02/04/1996 TD, [...] encounter Miscellaneous Notes * Telephone Encounter - Jo Sanders OSA - 04/24/2024 2:[address] Clemente Spoke w/ patient's and she confirmed it with him patient is aware that his appointment is now for May 19 at 9am * Telephone Encounter - Fidencio Clemente MD - 04/24/2024 2:12 PM EDT New referral created. Needs to be scheduled as new patient for 30 mins per provider. * Telephone Encounter - Jo Sanders OSA - 04/24/2024 2:[address] Clemente please see below I scheduled this by mistake it was in the return notes and I didn't see an order attached I should have asked before scheduling it as a return Could you put in an order for new patient and I can call patient to reschedule Only issue is Dr Galan does not have anything open for new patients until May please advise * Telephone Encounter - Norm Galan DO - 04/24/2024 1:02 PM EDT Patient is a new patient. Please schedule appropriately. Please discuss with corporate secretary why this wasdone in this manner. I have never seen this patient before and it is for a hospital follow up/MRI follow up documented in this encounter Plan of Treatment Upcoming Encounters Date Type Department Care Team (Late st Contact Info) Description 05/01/2024 6:30 AM EDT Anticoagulation Centralized Clinical Pharmacy Services, Ney Castañeda [address] [place] [address] [place] [address] [place] [address] 05/27/2024 8:15 AM EST Office Visit MOHS Surgery [facility] 200 [facility] [place] [address] Jewell Pastor MD [address] [place] [address] [place] [address] 06/23/2024 2:30 PM EST Office Visit Cardiology, [facility] [address] [place] [address] Juancho Nelson DO [address] [place] [address] 10/28/2024 2:40 PM EDT Office Visit General Internal Medicine [facility] 200 [facility] [place] [address] Anurag Mora MD 200 [facility] [place] [address] 01/15/2025 1:30 PM EDT Office Visit Neurology [facility] 200 [facility] [place] [address] Evelyn Mcgill PA-C [facility] [place] [address] Scheduled Procedures Name Priority Associated Diagnoses Date/Ti me COLONOSCOPY FLEXIBLE PROXIMA L DIAGNOSTIC Recall History of colonic polyps Scheduled Referrals Name Type Priority Associated Diagnoses Orde r Schedule ORTHOPAEDICS REFERRAL OP Referral Within 10 days (routine) Iliopsoas bursitis of right hip Closed nondisplaced fracture of lesser trochanter of right femur, initial encounter (HCC) Ordered: 04/24/2024 Health Maintenance Due Date Last Done Comments Adult Wellness Visit 05/26/2023 05/26/2022, 05/25/20 21 Depression Screening 05/26/2023 05/26/2022 Albumin/Creatinine Ratio 07/27/2023 07/27/2022, 02/0 08/2021 HbA1c 02/15/2024 08/17/2023, 01/14, 07/27/2022, Additional [...] this encounter Medical Devices Implanted Type Area Commercial Mortgage Broker Device Identifier Shelf Expiration Date Model / Serial / Lot Lens Intraoc 18.0 - [id number] - [id number] Implanted:Qty: 1 on 12/11/2017 by Bryan Alfaro MD at OR [facility] Right: Eye [employer] 07/15/2021 [id number] / [id number] / [id number] Clip Quick 2.8mm 230cm - [id number] Implanted:Qty: 1 on 08/11/2020 by Anaid Powell, DO at ENDOSCOPY [facility] [employer] 09/15/2022 HX-202UR.A / / [id number] Clip Quick 2.8mm 230cm - [id number] Implanted:Qty: 1 on 08/11/2020 by Anaid Powell, DO at ENDOSCOPY [facility] [employer] 09/15/2022 HX-202UR.A / / [id number] Clip Quick 2.8mm 230cm - [id number] Implanted:Qty: 1 on 08/11/2020 by Anaid Powell, DO at ENDOSCOPY [facility] [employer] 09/15/2022 HX-202UR.A / / [id number] Clip Quick 2.8mm 230cm - [id number] Implanted:Qty: 1 on 08/11/2020 by Anaid Powell, DO at ENDOSCOPY [facility] [employer] 09/15/2022 HX-202UR.A / / [id number] documented as of this encounter Visit Diagnoses Diagnosis Iliopsoas bursitis of right hip- Primary Closed nondisplaced fracture of lesser trochanter of right femur, initial encounter (HCC) documented in this encounter Advance Directives * Full Code (Latest Code Status on File) Date Activated Date Inactivated Comments 12/11/2017 12:38 PM 12/11/2017 7:16 PM This order reflects the patients wishes and were consensually agreed upon. Care Teams Road Freight Firer Relationship Specialty Start Date End Date Anurag Mora MD [address] [place] [address] PCP - General Internal Medicine 05/06/21 documented as of this encounter
--- OUTSIDE RECORDS SUMMARY | 2024-05-06 08:16 | External Medical Summary | Summary of Care ---
Author Name Unknown Organization [facility] Address [address] [address] Phone [phone] Care Team Providers Care Plaster Lather Name Role Phone Anurag Mora MD Primary Care Provider + Reason for Visit * Reason Comments Dosage Adjustment Via Phone (anticoag Cl inic) Encounter Details Date Type Department Care Team (Late st Contact Info) Description 04/24/2024 6:30 AM EDT Anticoagulation [facility], Ney Castañeda [address] [place] [address] [place] [address] [facility], [address] [place] [address] H/O ischemic multifocal posterior circulation stroke*; History [...] Status FOLIC ACID TABS 1 MG ORIndications:Acute [place], anterior wall (HCC) 1 TABLET DAILY 30 [...] 10 cm every night at bedtime. Active [employer] Verio Flex System w/Device KitIndications:High blood sugar,Type 2 diabetes mellitus with hemoglobin A1c goal of less than 7.0% ([facility]) Use as directed. Use to [...] in the morning. Active OneTouch Delica Plus [id number] :Type 2 diabetes mellitus with hemoglobin A1c [...] Oral Tablet (Coumadin)Indication s:PAF (paroxysmal atrial fibrillation) ([facility]) TAKE 2 TABLETS BY MOUTH ON SUNDAY AND 1 TABLET ON OTHER DAYS OF THE WEEK OR DIRECTED BY [facility] CLINIC 104 Tablet 2 11/22/2023 Active metFORMIN HCl 1000 MG Oral Tablet (Glucophage)Indicati ons:High blood sugar,Type 2 diabetes mellitus with hemoglobin A1c goal of less than 7.0% ([facility]) TAKE 1 TABLET BY MOUTH [...] nodule 05/04/2011 12/01/2017 Overview: 08/2009 CT -- [id number] 11/2012 CT -- 11x8mm, f/u in 18 [...] surveillance.- tubular adenoma Migraine without aura 05/15/20052017 care home current use of ant icoagulant therapy [...] mRNA, LNP-s, No Pre serve, 2-Dose Series (H2020) 04/13/2021,09/11/2020,08/21/2020 COVID-19, LNP-s, No Preserve , Cholo-sucrose, [...] as of this encounter Progress Notes * Tasneem Broussard, turf farm worker - 04/24/2024 9:42 AM EDT Contacts Contact Date/Time Type Contact Phone/Fax 04/23/2024 09:20 AM EDT Phone (Incoming) [facility] (Other) [phone] 04/24/2024 09:18 AM EDT Phone (Outgoing) Arnulfo Malone (Self) [phone] (H) Spoke to Dexter. Patient still in bed, would like call back later today 04/24/2024 09:41 AM EDT Phone (Incoming) DEXTER MALONE (Emergency Contact) [phone] (H) Subjective Patient Findings Negatives: Signs/symptoms of thrombosis, Signs/symptoms [...] date communicated as noted by Pharmacist: Yes TASNEEM BROUSSARD CPhT 04/24/2024, 9:42 AM * Jewell Barahona RPh - 04/24/2024 8:57 AM EDT Coumadin Clinic (region specific) Objective Current Warfarin Dose As of 04/24/2024 Warfarin maintenance plan: 5 mg (2.5 mg x 2) every Shara, Sat; 2.5 mg (2.5 mg x 1) all other days INR Result As of 04/24/2024 INR goal: 2.0-3.0 INR used for dosin.0 (04/23/2024) Assessment & Plan Warfarin Plan As of 04/24/2024 Full warfarin instructions: 5 mg every Shara, Sat; 2.5 mg all other days No change documented: Jewell Barahona RPh Next INR check: 04/30/2024 Repeat PT/INR in 1 week(s) Weekly dose: not changed Additional Dosing Information: Description (Takes in AM) [facility] 1.25mg MWF, 2.5mg all other days - Bactrim DS Tech to contact patient with dose instructions as noted. Jewell Barahona RPh 04/24/2024, 8:57 AM * Alina Casey PHARM Tech - 04/23/2024 9:20 AM EDT Caller's name: Carmel Mac call back number(OFFICE NUMBER FOR HH): [phone] Reason for call: nursing facility, [facility], calling with INR results. Result is 2.0 which was drawnon 04/23/24. Patient is not being discharged. Thank you, Alina Casey Machine Farmworker [facility] Services 04/23/2024,9:20 AM documented in this encounter Plan of Treatment Upcoming Encounters Date Type Department Care Team (Late st Contact Info) Description 04/28/2024 10:00 AM EDT Office Visit Orthopaedics [facility] [address] [place] [address] Norm Galan, DO [address] [place] [address] 05/01/2024 6:30 AM EDT Anticoagulation Central[facility] Clinical Pharm[facility] Services, Ney Castañeda [address] [place] [address] [place] [address] [place] [address] 05/27/2024 8:15 AM EST Office Visit [facility] [address] [place] [address] Jewell Pastor MD [address] [place] [address] [place] [address] 06/23/2024 2:30 PM EST Office Visit Cardiology, [facility] [address] [place] [address] Juancho Nelson, DO [address] [place] [address] 10/28/2024 2:40 PM EDT Office Visit General Internal Medicine [facility] [address] [facility] [place] [address] Anurag Mora MD [address] [facility] [place] [address] 01/15/2025 1:30 PM EDT Office Visit Neurology [facility] [address] [facility] [place] [address] Evelyn Mcgill PA-C [address] [place] [address] Scheduled Procedures Name Priority Associated Diagnoses Date/Ti [...] this encounter Medical Devices Implanted Type Area Senior Accounts Payable Clerk Device Identifier Shelf Expiration Date Model / Serial / Lot Lens Intraoc 18.0 - [id number] - [id number] Implanted:Qty: 1 on 12/11/2017 by Bryan Alfaro MD at OR [facility] Right: Eye [employer] 07/15/2021 [id number] / [id number] / [id number] Clip Quick 2.8mm 230cm - [id number] Implanted:Qty: 1 on 08/11/2020 by Anaid Powell DO at ENDOSCOPY [facility] [employer] 09/15/2022 HX-202UR.A / / [id number] Clip Quick 2.8mm 230cm - [id number] Implanted:Qty: 1 on 08/11/2020 by Anaid Powell DO at ENDOSCOPY [facility] [employer] 09/15/2022 HX-202UR.A / / [id number] Clip Quick 2.8mm 230cm - [id number] Implanted:Qty: 1 on 08/11/2020 by Anaid Powell DO at ENDOSCOPY [facility] [employer] 09/15/2022 HX-202UR.A / / [id number] Clip Quick 2.8mm 230cm - [id number] Implanted:Qty: 1 on 08/11/2020 by Anaid Powell DO at ENDOSCOPY [facility] [employer] 09/15/2022 HX-202UR.A / / [id number] documented as of this encounter Procedures Procedure Name Priority Date/Time Associated Diagnosis Comments OUTSIDE LAB-PT/INR Routine 04/23/2024 documented in this encounter Results * OUTSIDE LAB-PT/INR (04/23/2024) INR-OUTSIDE LAB 2.0 History Per Patient LABORATORY documented in this [...] and were consensually agreed upon. Care Teams Plaster Lather Relationship Specialty Start Date End Date Anurag Mora MD [address] [facility] [place] [address] PCP - General Internal Medicine 05/06/21 documented as of this encounter
--- OUTSIDE RECORDS SUMMARY | 2024-05-06 08:16 | External Medical Summary | Summary of Care ---
Author Name Unknown Organization [facility] Address [address] [facility] [place] [address] Phone [phone] Care Team Providers Care Spanish Linguist Name Role Phone Anurag Mora MD Primary Care Provider + Reason for Visit * Reason Onset Date Comments Hospital Follow-Up Pt here for a hospital f/u from [facility] on 04/14 for UTI. Pt reports that he is doing fine now. Hospital Follow-Up 04/17/2024 Encounter Details Date Type Department Care Team (Late st Contact Info) Description 04/17/2024 2:20 PM EDT Office Visit [facility] [address] [facility] [place] [address] Fidencio Olivares MD [address] [place] [address] Complicated UTI (urinary tract infection)*; Supratherapeutic INR; Blood clot in bladder; Hospital discharge follow-up Allergies Active Allergy Reactions Criticality Noted Date Comments Deandre Inhibitors Cough Medium 05/25/2008 Propoxyphene N-Acetaminophen Nausea/vomiting Low 04/26/2010 Gabapentin Nausea/vomiting Low 04/10/2011 Omeprazole 12/05/2002 bad side effects Propoxyphene High 12/26/2023 Hallucination documented as of this encounter (statuses as of 04/17/2024) Medications Medication Sig Dispensed Refills Start Date End Date Status FOLIC ACID TABS 1 MG ORIndications:Acute [place], anterior wall (HCC) 1 TABLET DAILY 30 [...] in the morning. Active OneTouch Delica Plus [id number] :Type 2 diabetes mellitus with hemoglobin A1c [...] at bedtime. 90 Tablet 3 03/23/2024 Active Amoxicillin 500 MG Oral Tablet Take 1 Tablet by mouth in the morning and 1 Tablet before bedtime. 04/14/2024 Active Amoxicillin-Pot Clavulanate 500-125 MG Oral Tablet (Augmentin) Take 1 Tablet by mouth in the morning and 1 Tablet before bedtime. 04/14/2024 Active documented as of this encounter (statuses as of 04/17/2024) Active Problems Problem Noted Date Diagnosed Date [...] as of this encounter (statuses as of 04/17/2024) Resolved Problems Problem Noted Date Diagnosed Date Resolved Date Sinus pause 07/26/2018 10/16/2018 History of malignant neoplasm of skin 05/02/2018 04/08/2019 History of migraine 05/02/2018 04/08/20 19 Cryptogenic stroke 01/21/2018 9 Anticoagulated on warfarin 01/21/2018 0 08/05/2021 Prediabetes 08/28/2017 06/30/2021 Overview: Per Prediabetes protocol #1 RLL 1.4 cm nodule 05/04/2011 12/01/2017 Overview: 08/2009 CT -- [id number] 11/2012 CT -- 11x8mm, f/u in 18 [...] tubular adenoma Migraine without aura 05/15/20052017 intermediate frame tender current use of ant icoagulant therapy 07/08/2003 [...] as of this encounter (statuses as of 04/17/2024) Immunizations Name Administration Dates Next Due COVID-19 [...] Sign Reading Time Taken Comments Blood Pressure 132/74 04/17/2024 2:37 PM EDT Pulse 71 04/17/2024 2:37 PM EDT Temperature 36.3 C (97.4 F) 04/17/2024 2:37 PM ED T Respiratory Rate 16 04/17/2024 2:37 PM EDT Oxygen Saturation 96% 04/17/2024 2:37 PM EDT Inhaled Oxygen Concentration - - Weight 91.6 kg (202 lb) 04/17/2024 2:37 PM EDT Height 177.8 cm (5' 10") 04/17/2024 2:37 PM EDT Body Mass Index 28.98 04/17/2024 2:37 PM EDT documented in this encounter Functional Status Functional [...] as of this encounter Progress Notes * Fidencio Olivares MD - 04/17/2024 2:48 PM EDT SUBJECTIVE: Arnulfo Morfin is a 83 year old male. Chief Complaint Patient presents with Hospital Follow-Up Pt here for a hospital f/u from [facility] on 04/14 for UTI. Pt reports that he is doing fine now. Hospital Follow-Up Recent Admission: Patient was recently admitted to [facility] on 04/11/2024. The date of discharge was 04/14/2024. Discharge report received and reviewed. HPI: [address] Mora at [facility] presented to ER with hematuria and found to have supratherapeutic INR with large blood clot in bladder, complicated UTI, evolving psoas hematoma, and right gluteal hematoma that had enlarged from previous eval. Started on continuous bladder irrigation and urology consulted. Ortho consulted re: bleed of muscles. Ultimately treatment conservatively and treated with abx for infection. Cystoscopy to be pursued asoutpatient. Coumadin was reversed. It has since been reinitiated with last PT/INR yesterday with INR 1.8. He is going to have this checked again via home draw by [facility] in the next few days. Augmentin PO for abx coverage as culture grew E Coli. Methenamine held. He still has a few days in his course.Methenamine will be resumed next week. Patient Active Problem List Diagnosis Anticoagulation management [...] degree AV block PAF (paroxysmal atrial fibrillation) ([facility]) Pancreatic cyst HTN, goal below 140/90 Type 2 diabetes mellitus with hemoglobin A1c goal of less than 7.0% ([facility]) Restless legs syndrome (RLS) Myelopathy ([facility]) Ascending aorta enlargement ([facility]) Type 2 diabetes mellitus with diabetic polyneuropathy ([facility]) Current Outpatient Medications Medication Sig Dispense [...] CPAP 10 cm every night at bedtime. [employer] Verio Flex System w/Device Kit Use as directed. [...] CAPSULE BY MOUTH DAILY 90 Capsule 3 Vitamin B-12 1000 MCG Oral Tablet (Cyanocobalamin) Take 1 Tablet by mouth in the morning. OneTouch Delica Plus [id number] USE TO CHECK GLUCOSE ONCE DAILY 100 [...] BY MOUTH AT NIGHT 90 Capsule 3 traMADol HCl 50 MG Oral Tablet (Ultram) Q4H rOPINIRole HCl 0.25 MG Oral Tablet (Requip) Take 1 Tablet by mouth at bedtime. 90 Tablet 3 Amoxicillin 500 MG Oral Tablet Take 1 Tablet by mouth in the morning and 1 Tablet before bedtime. Amoxicillin-Pot Clavulanate 500-125 MG Oral Tablet (Augmentin) Take 1 Tablet by mouth in the morning and 1 Tablet before bedtime. Calcipotriene 0.005 % External Cream (Calcitrene) Apply topically to affected area 2 times a day. Apply to scalp, ears, temples and nose as directed (mix with 5% 5-fluorouracil cream) 60 g 0 Zoster Vac Recomb Adjuvanted 50 MCG/0.5ML Intramuscular Suspension Reconstituted (Shingrix) Inject 0.5 mL into a large muscle now and repeat dose in 60 to 180 days (Patient not taking: Reported on 03/13/2024) 1 Each 0 Acetaminophen 325 MG Oral Tablet (Tylenol) 2 Tablets. (Patient not taking: Reported on 03/13/2024) Diclofenac Sodium 1 % External Gel (Voltaren) 4 g. No current facility-administered medications for this visit. Current and discharge medications have been reconciled. Review of patient's allergies indicates: Allergen Reactions Propoxyphene Hallucination Deandre Inhibitors Cough Omeprazole bad side effects Darvocet [Propoxyphene N-Acetaminophen] Nausea/vomiting Neurontin [Gabapentin] Nausea/vomiting OBJECTIVE: BP 132/74 (BP Site: Left Arm, BP Position: Sitting, BP Cuff Size: Regular) | Pulse 71 | Temp 36.3 C (97.4 F) (Tympanic) | Resp 16 | Ht 1.778 m (5' 10") | Wt 91.6 kg (202 lb) | SpO2 96% | BMI 28.98 kg/m | BSA 2.13 m REVIEW OF SYSTEMS: PHYSICAL EXAM: BP 132/74 (BP Site: Left Arm, BP Position: Sitting, BP Cuff Size: Regular) | Pulse 71 | Temp 36.3 C (97.4 F) (Tympanic) | Resp 16 | Ht 1.778 m (5' 10") | Wt 91.6 kg (202 lb) | SpO2 96% | BMI 28.98 kg/m | BSA 2.13 m NAD Non ill appearing Hard of hearing Slow speech but lucid and direct Neck supple Throat clear PERRL, + cataractous changes RRR Lungs clear Hyperactive bowel sounds Ambulating with cane Tenderness right hip flexor area ASSESSMENT: Complicated UTI (urinary tract infection) (Primary) - complete course of abx. Ok to cont to self calf. Resume methenamine next week. F/u with urology Supratherapeutic INR - 1.8 last check yesterday, repeat in coming days. Cont same dose for now Blood clot in bladder - outpatient cystoscopy being arranged. Arthritis of right hip - MRI hip being done later today after much delay. He is anxious to have this done. Hospital discharge follow-up - DISCH MED RECON CUR MED LIS PLAN: Follow up as scheduled with PCP. I spent a total of 30-39 minutes (exact time 33 mins) minutes on the date of service in preparation, delivery, and documentation of the care provided to Arnulfo Morfin excluding any time spent in performance of separately billed services. Fidencio Olivares MD documented in this encounter Plan of Treatment Upcoming Encounters Date Type Department Care Team (Late st Contact Info) Description 04/17/2024 4:15 PM EDT Imaging Radiology [facility] 1st [facility] [address] [place] [address] Acute pain of right hip; Primary osteoarthritis of right hip; Ground-level fall; Abnormal finding on CT scan 04/24/2024 6:30 AM EDT Anticoagulation Centralized Clinical Pharmacy Services, Ney Castañeda [address] [place] [address] [place] [address] [facility], [address] [place] [address] 04/28/2024 10:00 AM EDT Office Visit [facility] [place] [address] Norm Galan, DO [address] [place] [address] 05/27/2024 8:15 AM EST Office Visit MOHS Surgery [facility] [address] [place] [address] Jewell Pastor MD [address] [place], [place] [address] [address] 06/23/2024 2:30 PM EST Office Visit Cardiology, [facility] [address] [facility] [place] [address] Juancho Nelson, DO [address] [facility] [place] [address] 10/28/2024 2:40 PM EDT Office Visit General Internal Medicine [facility] [address] [place] [address] Anurag Mora MD [address] [facility] [place] [address] 01/15/2025 1:30 PM EDT Office Visit Neurology [facility] [place] [address] [place] [address] Evelyn Mcgill PA-C [address] [place] [address] Scheduled Procedures Name Priority Associated Diagnoses Date/Ti [...] this encounter Medical Devices Implanted Type Area Employee Communications Specialist Device Identifier Shelf Expiration Date Model / Serial / Lot Lens Intraoc 18.0 - [id number] - [id number] Implanted:Qty: 1 on 12/11/2017 by Bryan Alfaro MD at [facility] Right: Eye [employer] 07/15/2021 [id number] / [id number] / [id number] Clip Quick 2.8mm 230cm - [id number] Implanted:Qty: 1 on 08/11/2020 by Anaid Powell DO at ENDOSCOPY [facility] [employer] 09/15/2022 HX-202UR.A / / [id number] Clip Quick 2.8mm 230cm - [id number] Implanted:Qty: 1 on 08/11/2020 by Anaid Powell DO at ENDOSCOPY [facility] [employer] 09/15/2022 HX-202UR.A / / [id number] Clip Quick 2.8mm 230cm - [id number] Implanted:Qty: 1 on 08/11/2020 by Anaid Powell DO at ENDOSCOPY [facility] [employer] 09/15/2022 HX-202UR.A / / [id number] Clip Quick 2.8mm 230cm - [id number] Implanted:Qty: 1 on 08/11/2020 by Anaid Powell DO at ENDOSCOPY [facility] [employer] 09/15/2022 HX-202UR.A / / [id number] documented as of this encounter Visit Diagnoses Diagnosis Acute pain of right hip Pain in joint, pelvic region and thigh Primary osteoarthritis of right hip Primary localized osteoarthrosis, pelvic region and thigh Ground-level fall Abnormal finding on CT scan Other nonspecific (abnormal) findings on radiological and other examinations of body structure Complicated UTI (urinary tract infection)- Primary Urinary tract infection, site not specified Supratherapeutic INR Abnormal coagulation profile Blood clot in bladder Hemorrhage into bladder wall Hospital discharge follow-up Other follow-up examination documented in this encounter Advance Directives * Full Code (Latest Code Status on File) Date Activated Date Inactivated Comments 12/11/2017 12:38 PM 12/11/2017 7:16 PM This order reflects the patients wishes and were consensually agreed upon. Care Teams Spanish Linguist Relationship Specialty Start Date End Date Anurag Mora MD [address] [place] [address] PCP - General Internal Medicine 05/06/21 documented as of this encounter
--- OUTSIDE RECORDS SUMMARY | 2024-05-06 08:16 | External Medical Summary | Summary of Care ---
Author Name Unknown Organization [facility] Address [address] [facility] [address] Phone [phone] Care Team Providers Care Blanket Winder Operator Name Role Phone Anurag Mora MD Primary Care Provider + Reason for Visit * Reason Comments Dosage Adjustment Via Phone (anticoag Cl inic) Encounter Details Date Type Department Care Team (Late st Contact Info) Description 04/16/2024 6:15 PM EDT Anticoagulation [facility] Services, Ney Castañeda [address] [place] [address] [place] [address] [facility], [address] [place] [address] H/O ischemic multifocal posterior circulation stroke*; History of pulmonary embolism Allergies Active Allergy Reactions Criticality Noted Date Comments Deandre Inhibitors Cough Medium 05/25/2008 Propoxyphene N-Acetaminophen Nausea/vomiting Low 04/26/2010 Gabapentin Nausea/vomiting Low 04/10/2011 Omeprazole 12/05/2002 bad side effects documented as of this encounter (statuses as of 04/16/2024) Medications Medication Sig Dispensed Refills Start Date End Date Status FOLIC ACID TABS 1 MG ORIndications:Acute [place], anterior wall (HCC) 1 TABLET DAILY 30 [...] 10 cm every night at bedtime. Active Inform Direct Verio Flex System w/Device KitIndications:High blood sugar,Type 2 diabetes mellitus with hemoglobin A1c goal of less than 7.0% ([facility]) Use as directed. Use to [...] Tablet by mouth in the morning. 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 07/26/2022 Restless legs syndrome (RLS) 08/05/2021 Type [...] as of this encounter (statuses as of 04/16/2024) Resolved Problems Problem Noted Date Diagnosed Date Resolved Date Sinus pause 07/26/2018 10/16/2018 History of malignant neoplasm of skin 05/02/2018 04/08/2019 History of migraine 05/02/2018 04/08/20 19 Cryptogenic stroke 01/21/2018 9 Anticoagulated on warfarin 01/21/2018 0 08/05/2021 Prediabetes 08/28/2017 06/30/2021 Overview: Per Prediabetes protocol #1 RLL 1.4 cm nodule 05/04/2011 12/01/2017 Overview: 08/2009 CT -- [id number] 11/2012 CT -- 11x8mm, f/u in 18 [...] as of this encounter (statuses as of 04/16/2024) Immunizations Name Administration Dates Next Due COVID-19 mRNA, LNP-s, No Pre serve, 2-Dose Series (cafegive) 04/13/2021,09/11/2020,08/21/2020 COVID-19, LNP-s, No Preserve , Cholo-sucrose, Ages 12+ (Pfizer) 10/20/2021 Covid-19, Mrna, Lnp-s, Pf, B ivalent, 30 Mcg, IM, 12 yrs and above (cafegive) 03/29/2022 H1N1 2009 Influenza, IM 07/02/2009 Pneumococcal [...] of this encounter Progress Notes * Tasneem Torres, [facility] - 04/16/2024 11:03 AM EDT Contacts Contact Date/Time Type Contact Phone/Fax 04/16/2024 11:01 AM EDT Phone (Outgoing) Arnulfo Morfin (Self) [phone] (H) No Answer/Busy 04/16/2024 11:02 AM EDT Phone (Outgoing) Arnulfo Morfin (Self) [phone] (M) Left Message Subjective Advised patient to contact Anticoagulation Clinic if any unusual bruising or bleeding, recent illness, changes in medication, or questions/concerns. PT/INR results, Coumadin dose instructions, and next PT/INR date communicated as noted by Pharmacist: Yes TASNEEM TORRES CPhT 04/16/2024, 11:03 AM * Jewell Barahona RPh - 04/16/2024 10:50 AM EDT Images from the original note were not included. Coumadin Clinic (region specific) Objective Current Warfarin Dose As of 04/16/2024 Warfarin maintenance plan: 5 mg (2.5 mg x 2) every Shara, Sat; 2.5 mg (2.5 mg x 1) all other days INR Result As of 04/16/2024 INR goal: 2.0-3.0 INR used for dosin.8 (04/16/2024) Assessment & Plan Warfarin Plan As of 04/16/2024 Full warfarin instructions: 04/16: 5 mg; Otherwise 5 mg every Shara, Sat; 2.5 mg all other days Next INR check: 04/23/2024 Repeat PT/INR in 1 week(s) Weekly dose: not changed Additional Dosing Information: Description (Takes in AM) Omni 1.25mg MWF, 2.5mg all other days - Bactrim DS Tech to contact patient with dose instructions as noted. Jewell Barahona RPh 04/16/2024, 10:50 AM * Lenka Varma PHARM Tech - 04/16/2024 10:35 AM EDT Caller's name: Gracie Preferred call back number(OFFICE NUMBER FOR ): [phone] Reason for call: [facility] result. INR=1.8 Thank you, Lenka Varma Director Inpatient Headache Program I [facility] Services ([facility]) 04/16/2024, 10:35 AM documented in this encounter Plan of Treatment Upcoming Encounters Date Type Department Care Team (Late st Contact Info) Description 04/17/2024 2:20 PM EDT Office Visit Family Practice [facility] [address] [place] [address] Fidencio Clemente MD [address] [place] [address] 04/17/2024 4:15 PM EDT [facility] [address] [place] [address] 04/24/2024 6:30 AM EDT Anticoagulation [facility], [address] [place] [address] [facility], [address] [place] [address] 05/27/2024 8:15 AM EST Office Visit MOHS [facility] [address] Jewell Pastor MD [address] [place] [address] [place] [address] 06/23/2024 2:30 PM EST Office Visit Cardiology, [facility] [address] [place] [address] Juancho Nelson DO [address] [place] [address] 10/28/2024 2:40 PM EDT Office Visit General Internal Medicine [facility] 200 [facility] [place] [address] Anurag Mora MD 200 [facility] [place] [address] 01/15/2025 1:30 PM EDT Office Visit Neurology Devang Valdes [place] [address] [facility] [place] [address] Evelyn Mcgill PA-C [address] [place] [address] Scheduled Procedures Name Priority Associated Diagnoses Date/Ti [...] this encounter Medical Devices Implanted Type Area Fruit Cutter Device Identifier Shelf Expiration Date Model / Serial / Lot Lens Intraoc 18.0 - [id number] - [id number] Implanted:Qty: 1 on 12/11/2017 by Bryan Alfaro MD at [facility] Right: Eye [employer] 07/15/2021 [id number] / [id number] / [id number] Clip Quick 2.8mm 230cm - [id number] Implanted:Qty: 1 on 08/11/2020 by Anaid Powell DO at END[facility]COPY [facility] [employer] 09/15/2022 HX-202UR.A / / [id number] Clip Quick 2.8mm 230cm - [id number] Implanted:Qty: 1 on 08/11/2020 by Anaid Powell DO at [facility]COPY [facility] [employer] 09/15/2022 HX-202UR.A / / [id number] Clip Quick 2.8mm 230cm - [id number] Implanted:Qty: 1 on 08/11/2020 by Anaid Powell DO at [facility]COPY [facility] [employer] 09/15/2022 HX-202UR.A / / [id number] Clip Quick 2.8mm 230cm - [id number] Implanted:Qty: 1 on 08/11/2020 by Anaid Powell DO at END[facility]COPY [facility] [employer] 09/15/2022 HX-202UR.A / / [id number] documented as of this encounter Procedures Procedure Name Priority Date/Time Associated Diagnosis Comments OUTSIDE LAB-PT/INR Routine 04/16/2024 documented in this encounter Results * OUTSIDE LAB-PT/INR (04/16/2024) INR-OUTSIDE LAB 1.8 04/16/2024 History Per Patient LABORATORY documented in this [...] and were consensually agreed upon. Care Teams Blanket Winder Operator Relationship Specialty Start Date End Date Anurag Mora MD 200 [place] [address] PCP - General Internal Medicine 05/06/21 documented as of this encounter
--- OUTSIDE RECORDS SUMMARY | 2024-05-06 08:16 | External Medical Summary | Summary of Care ---
Author Name Unknown Organization [facility] Address [address] [place] [address] Phone [phone] Care Team Providers Care Head Lineman Name Role Phone Anurag Mora MD Primary Care Provider + Reason for Visit * Reason Onset Date Comments FYI 04/03/2024 Encounter Details Date Type Department Care Team (Late st Contact Info) Description 04/03/2024 Telephone General Internal Medicine [facility] [place] [address] Anurag Mora MD 200 [facility] [place] [address] FYI Allergies Active Allergy Reactions Criticality Noted Date Comments Deandre Inhibitors Cough Medium 05/25/2008 Propoxyphene N-Acetaminophen Nausea/vomiting Low 04/26/2010 Gabapentin Nausea/vomiting Low 04/10/2011 Omeprazole 12/05/2002 bad side effects Propoxyphene High 12/26/2023 Hallucination documented as of this encounter (statuses as of 04/23/2024) Medications Medication Sig Dispensed Refills Start Date End Date Status FOLIC ACID TABS 1 MG ORIndications:Acute [place], anterior wall (HCC) 1 TABLET DAILY 30 [...] 10 cm every night at bedtime. Active ParkzzzTouch Verio Flex System w/Device KitIndications:High blood sugar,Type [...] Tablet by mouth in the morning. Active ParkzzzTouch Delica Plus [id number] :Type 2 diabetes mellitus with hemoglobin A1c [...] as of this encounter (statuses as of 04/23/2024) Active Problems Problem Noted Date Diagnosed Date [...] as of this encounter (statuses as of 04/23/2024) Resolved Problems Problem Noted Date Diagnosed Date Resolved Date Sinus pause 07/26/2018 10/16/2018 History of malignant neoplasm of skin 05/02/2018 04/08/2019 History of migraine 05/02/2018 04/08/20 19 Cryptogenic stroke 01/21/2018 04 9 Anticoagulated on warfarin 01/21/2018 0 08/05/2021 Prediabetes 08/28/2017 06/30/2021 Overview: Per Prediabetes protocol #1 RLL 1.4 cm nodule 05/04/2011 12/01/2017 Overview: 08/2009 CT -- 11r02ko 11/2012 CT -- 11x8mm, f/u in 18 [...] surveillance.- tubular adenoma Migraine without aura 05/15/20052017 [facility] current use of ant icoagulant therapy 07/08/2003 [...] as of this encounter (statuses as of 04/23/2024) Immunizations Name Administration Dates Next Due COVID-19 mRNA, LNP-s, No Pre serve, 2-Dose Series (Aimetis) 04/13/2021,09/11/2020,08/21/2020 COVID-19, LNP-s, No Preserve , Cholo-sucrose, Ages 12+ (Pfizer) 10/20/2021 Covid-19, Mrna, Lnp-s, Pf, B ivalent, 30 Mcg, IM, 12 yrs and above (Aimetis) 03/29/2022 H1N1 2009 Influenza, IM 07/02/2009 Pneumococcal [...] Miscellaneous Notes * Telephone Encounter - Yvette Thomas MED ASSIST - 04/23/2024 2:41 PM EDT Spoke with patient. He states that he did have a follow up appointment with a physician at [facility]. He had an MRI and is seeing ortho on 04/28. * Telephone Encounter - Alysa Martin ABDULLAHI - 04/03/2024 11:00 AM EDT pt with omni mariapatient fell yesterday, can't weight bear or get down step, she called the ambulance . Right leg gave way. Seeing him today, she is waiting for the ambulance now. [facility] documented in this encounter Plan of Treatment Upcoming Encounters Date Type Department Care Team (Late st Contact Info) Description 04/24/2024 6:30 AM EDT Anticoagulation Centralized Clinical Pharmacy Services, Ney Castañeda [address] [place] [address] [place] [address] [facility], [address] [place] [address] H/O ischemic multifocal posterior circulation stroke*; History of pulmonary embolism 04/28/2024 10:00 AM EDT Office Visit Orthopaedics [facility] [address] [place] [address] Norm Galan, DO [address] [place] [address] 05/27/2024 8:15 AM EST Office Visit [facility] [address] Jewell Pastor MD [address] [place] [address] [place] [address] 06/23/2024 2:30 PM EST Office Visit Cardiology, [facility] [address] [place] [address] Juancho Nelson O, DO [address] [place] [address] 10/28/2024 2:40 PM EDT Office Visit General Internal Medicine [facility] 200 [place] [address] Anurag Mora MD [address] [place] [address] [facility] [place] [address] 01/15/2025 1:30 PM EDT Office Visit Neurology Devang Valdes [place] [address] [facility] [place] [address] Evelyn Mcgill PA-C [address] [place] [address] Scheduled Procedures Name Priority Associated Diagnoses Date/Ti [...] this encounter Medical Devices Implanted Type Area Refrigeration Mechanic Device Identifier Shelf Expiration Date Model / Serial / Lot Lens Intraoc 18.0 - [id number] - [id number] Implanted:Qty: 1 on 12/11/2017 by Bryan Alfaro MD at OR [facility] Right: Eye [employer] 07/15/2021 [id number] / [id number] / [id number] Clip Quick 2.8mm 230cm - [id number] Implanted:Qty: 1 on 08/11/2020 by Anaid Powell DO at ENDOSCOPY [facility] [employer] 09/15/2022 HX-202UR.A / / [id number] Clip Quick 2.8mm 230cm - [id number] Implanted:Qty: 1 on 08/11/2020 by Anaid Powell DO at ENDOSCOPY [facility] [employer] 09/15/2022 HX-202UR.A / / [id number] Clip Quick 2.8mm 230cm - [id number] Implanted:Qty: 1 on 08/11/2020 by Anaid Powell DO at ENDOSCOPY [facility] [employer] 09/15/2022 HX-202UR.A / / [id number] Clip Quick 2.8mm 230cm - [id number] Implanted:Qty: 1 on 08/11/2020 by Anaid Powell DO at ENDOSCOPY [facility] [employer] 09/15/2022 HX-202UR.A / / [id number] documented as of this encounter Advance Directives * Full Code (Latest Code Status on File) Date Activated Date Inactivated Comments 12/11/2017 12:38 PM 12/11/2017 7:16 PM This order reflects the patients wishes and were consensually agreed upon. Care Teams Head Lineman Relationship Specialty Start Date End Date Anurag Mora MD [address] [place] [address], [place] [address] PCP - General Internal Medicine 05/06/21 documented as of this encounter
--- OUTSIDE RECORDS SUMMARY | 2024-05-06 08:16 | External Medical Summary | Summary of Care ---
Author Name Unknown Organization [facility] Address [address] [place] [address] Phone [phone] Care Team Providers Care Rayon Winder Name Role Phone Anurag Mora MD Primary Care Provider + Reason for Visit * Reason Onset Date Comments FYI 04/03/2024 Encounter Details Date Type Department Care Team (Late st Contact Info) Description 04/03/2024 Telephone General Internal Medicine [facility] 200 [facility] [place] [address] Anurag Mora MD 200 [facility] [place] [place] [address] FYI Allergies Active Allergy Reactions Criticality Noted Date Comments Deandre Inhibitors Cough Medium 05/25/2008 Propoxyphene N-Acetaminophen Nausea/vomiting Low 04/26/2010 Gabapentin Nausea/vomiting Low 04/10/2011 Omeprazole 12/05/2002 bad side effects Propoxyphene High 12/26/2023 Hallucination documented as of this encounter (statuses as of 04/23/2024) Medications Medication Sig Dispensed Refills Start Date End Date Status FOLIC ACID TABS 1 MG ORIndications:Acute [place], anterior wall (HCC) 1 TABLET DAILY 30 [...] 10 cm every night at bedtime. Active GeoSentricTouch Verio Flex System w/Device KitIndications:High blood sugar,Type 2 diabetes mellitus with hemoglobin A1c goal of less than 7.0% ([facility]) Use as directed. Use to test blood [...] Tablet by mouth in the morning. Active GeoSentricTouch Delica Plus [id number] :Type 2 diabetes mellitus with hemoglobin A1c goal of less than 7.0% ([facility]),High blood sugar USE TO CHECK GLUCOSE ONCE DAILY 100 Each 3 08/22/2023 Active OneTouch Verio In Vitro Strip (Glucose Blood)Indications:Ty pe 2 diabetes mellitus with hemoglobin A1c goal of less than 7.0% ([facility]),High blood sugar USE 1 STRIP TO CHECK [...] nodule 05/04/2011 12/01/2017 Overview: 08/2009 CT -- 25x79ym 11/2012 CT -- 11x8mm, f/u in 18 [...] surveillance.- tubular adenoma Migraine without aura 05/15/20052017 alf current use of ant icoagulant therapy 07/08/2003 [...] mRNA, LNP-s, No Pre serve, 2-Dose Series (Unbxd) 04/13/2021,09/11/2020,08/21/2020 COVID-19, LNP-s, No Preserve , Cholo-sucrose, Ages 12+ (Pfizer) 10/20/2021 Covid-19, Mrna, Lnp-s, Pf, B ivalent, 30 Mcg, IM, 12 yrs and above (Unbxd) 03/29/2022 H1N1 2009 Influenza, IM 07/02/2009 Pneumococcal [...] follow up appointment with a physician at [facility]. He had an MRI and is seeing ortho on 04/28. * Telephone Encounter - Alysa Martin ABDULLAHI - 04/03/2024 11:00 AM EDT pt with omni mariapatient fell yesterday, can't weight bear or get down step, she called the ambulance . Right leg gave way. Seeing him today, she is waiting for the ambulance now. Probably will [facility]. documented in this encounter Plan of Treatment Upcoming Encounters Date Type Department Care Team (Late st Contact Info) Description 04/24/2024 6:30 AM EDT Anticoagulation Centralized Clinical Pharmacy Services, Ney Castañeda [address] [place] [address] [place] [address] [facility], [address] [place] [address] H/O ischemic multifocal posterior circulation stroke*; History of pulmonary embolism 04/28/2024 10:00 AM EDT Office Visit Orthopaedics [facility] [address] [place] [address] Norm Galan, DO [address] [place] [address] 05/27/2024 8:15 AM EST Office Visit MOHS Surgery [facility] [address] Jewell Pastor MD [address] [place] [address] [place] [address] 06/23/2024 2:30 PM EST Office Visit Cardiology, [facility] [address] [place] [address] Juancho Nelson O, DO [address] [place] [address] 10/28/2024 2:40 PM EDT Office Visit General Internal Medicine [facility] 200 [place] [address] Anurag Mora MD [address] [place] [address] [facility] [place] [address] 01/15/2025 1:30 PM EDT Office Visit Neurology Devang Valdes [place] 200 [facility] [place] [address] Evelyn Mcgill PA-C [address] [place] [address] Scheduled Procedures Name Priority Associated Diagnoses Date/Ti [...] this encounter Medical Devices Implanted Type Area Bss Solution Architect Device Identifier Shelf Expiration Date Model / Serial / Lot Lens Intraoc 18.0 - [id number] - [id number] Implanted:Qty: 1 on 12/11/2017 by Bryan Alfaro MD at OR [facility] Right: Eye [employer] 07/15/2021 [id number] / [id number] / [id number] Clip Quick 2.8mm 230cm - [id number] Implanted:Qty: 1 on 08/11/2020 by Anaid Powell DO at ENDOSCOPY [facility] [employer] 09/15/2022 HX-202UR.A / / [id number] Clip Quick 2.8mm 230cm - [id number] Implanted:Qty: 1 on 08/11/2020 by Anaid Powell DO at ENDOSCOPY [facility] [employer] 09/15/2022 HX-202UR.A / / [id number] Clip Quick 2.8mm 230cm - [id number] Implanted:Qty: 1 on 08/11/2020 by Anaid Powell DO at ENDOSCOPY [facility] [employer] 09/15/2022 HX-202UR.A / / [id number] Clip Quick 2.8mm 230cm - [id number] Implanted:Qty: 1 on 08/11/2020 by Anaid Powell DO at ENDOSCOPY [facility] [employer] 09/15/2022 HX-202UR.A / / [id number] documented as of this encounter Advance Directives * Full Code (Latest Code Status on File) Date Activated Date Inactivated Comments 12/11/2017 12:38 PM 12/11/2017 7:16 PM This order reflects the patients wishes and were consensually agreed upon. Care Teams Rayon Winder Relationship Specialty Start Date End Date Anurag Mora MD [address] [place] [address], [place] [address] PCP - General Internal Medicine 05/06/21 documented as of this encounter
--- OUTSIDE RECORDS SUMMARY | 2024-05-06 08:16 | External Medical Summary | Summary of Care ---
Author Name Unknown Organization [facility] Address [address] [place] [address] Phone [phone] Care Team Providers Care Composition Worker Name Role Phone Anurag Mora MD Primary Care Provider + Reason for Visit * Reason Onset Date Comments Home Health 04/11/2024 Encounter Details Date Type Department Care Team (Late st Contact Info) Description 04/11/2024 Telephone General Internal Medicine [facility] 200 [facility] [place] [address] Anurag Mora MD 200 [place] [address] Home Health Allergies Active Allergy Reactions Criticality Noted Date [...] 10 cm every night at bedtime. Active [place] ResearchToAfrimarket Verio Flex System w/Device KitIndications:High blood sugar,Type 2 diabetes mellitus with hemoglobin A1c goal of less than 7.0% ([facility]) Use as directed. Use to [...] in the morning. Active OneTouch Delica Plus [id number] :Type 2 diabetes mellitus with hemoglobin A1c goal of less than 7.0% ([facility]),High blood sugar USE TO CHECK GLUCOSE ONCE DAILY 100 Each 3 08/22/2023 Active [place] ResearchTouch Verio In Vitro Strip (Glucose Blood)Indications:Ty pe [...] of migraine 05/02/2018 04/08/20 Cryptogenic stroke 01/21/2018 04// 9 Anticoagulated on warfarin 01/21/2018 0 08/05/2021 Prediabetes 08/28/2017 06/30/2021 Overview: Per Prediabetes protocol #1 RLL 1.4 cm nodule 05/04/2011 12/01/2017 Overview: 08/2009 CT -- 12p37lt 11/2012 CT -- 11x8mm, f/u in 18 [...] mRNA, LNP-s, No Pre serve, 2-Dose Series ([employer]) 04/13/2021,09/11/2020,08/21/2020 COVID-19, LNP-s, No Preserve , Cholo-sucrose, Ages 12+ (Pfizer) 10/20/2021 Covid-19, Mrna, Lnp-s, Pf, B ivalent, 30 Mcg, IM, 12 yrs and above ([employer]) 03/29/2022 H1N1 2009 Influenza, IM 07/02/2009 Pneumococcal [...] Influenza, Trivalen t, (IIV3), with Preserv, (Fluzone) 04/01/2015,03/18/2014,03/29/2013,03/16,05/04/2011,05/05/2010,05/10/20 09,05/25/2008,05/09/2007,05/14/2006 03/18/2015 Seasonal Influenza, Trivalen t, [...] encounter Miscellaneous Notes * Telephone Encounter - Madelaine Rob LPN - 04/11/2024 3:15 PM EDT Called and spoke with Alejandrina - RN from [facility] - she sent him to the ER She states that she had pt pee in a specimen cup - pt was able to urinate, but Alejandrina states that itjust looked like straight blood * Telephone Encounter - Anurag Mora MD - 04/11/2024 10:59 AM EDT I would suggest he been seen for this khari, please schedule, if bleeding persists, suggest er! * Telephone Encounter - Leisa Ramirez LPN - 04/11/2024 10:31 AM EDT HH Concerns TYRONE Tinoco, Calling from: [employer] Report/Concerns of: Medication Related Symptoms: Hematuria Vitals: T 98.9 P 75 and regular RR 18 BP 120/88 SP O2 95% RA Lung sounds Clear Blood sugar 111 fasting Narrative: Reports that she checked the pt's INR today and resulted at 3.2. She did reach out to the coag clinic and made them aware of the results and that the pt stated when he self caths, he has been seeing blood in his urine since last night. Sometimes the blood is bright red with clots and sometimes it's mandarin speaking nanny in color. Only time pt feels a burning sensation when his bladder is full but resolves after self cath. Denies frequency or urgency. Is asking if a urine specimen should be obtained? Please advise. Call back TYRONE Tinoco with any advice or orders at [phone] Please fax new orders to [facility] [phone] Office * Telephone Encounter - Adriel Leyva OSA - 04/11/2024 10:28 AM EDT Reason for patient's call: PT/INR is 3.2 - urine has blood in it Caller was transferred to [facility] at the nurse line. documented in this encounter Plan of Treatment Upcoming Encounters Date Type Department Care Team (Late st Contact Info) Description 04/11/2024 6:15 PM EDT Anticoagulation Centralized Clinical Pharmacy Services, Ney Castañeda [address] [place] [address] [place] [address] [place] [address] H/O ischemic multifocal posterior circulation stroke*; History of pulmonary embolism 04/14/2024 6:45 AM EDT Anticoagulation Centralized Clinical Pharmacy Services, Ney Castañeda [address] [place] [address] [place] [address] [place] [address] 04/14/2024 11:00 AM EDT Office Visit Orthopaedics [facility] [address] [place] [address] Norm Galan, DO [address] [place] [address] 04/17/2024 4:15 PM EDT Imaging Radiology [facility] 1st Floor, [place] 132 [facility] [place] [address] 04/18/2024 6:15 PM EDT Anticoagulation Centralized Clinical Pharmacy Services, [address] [place] [address] [place] [address] 05/27/2024 8:15 AM EST Office Visit MOHS Surgery [facility] [address] [facility] [address] [place] [address] Jewell Pastor MD [address] [place], [place] [address] [address] 06/23/2024 2:30 PM EST Office Visit Cardiology, [facility] [address] [place] [address] Juancho Nelson, DO [address] [place] [address] 10/28/2024 2:40 PM EDT Office Visit General Internal Medicine [address] [place] [address] Anurag Mora MD 200 [facility] [place] [address] 01/15/2025 1:30 PM EDT Office Visit Neurology [facility] 200 [facility] [place] [address] Evelyn Mcgill PA-C [address] [place] [address] Scheduled Procedures Name Priority Associated Diagnoses Date/Ti [...] this encounter Medical Devices Implanted Type Area Compensation Business Partner Device Identifier Shelf Expiration Date Model / Serial / Lot Lens Intraoc 18.0 - [id number] - [id number] Implanted:Qty: 1 on 12/11/2017 by Bryan Alfaro MD at [facility] Right: Eye [employer] 07/15/2021 [id number] / [id number] / [id number] Clip Quick 2.8mm 230cm - [id number] Implanted:Qty: 1 on 08/11/2020 by Anaid Powell, DO at ENDOSCOPY [facility] [email or web address] 09/15/2022 HX-202UR.A / / [id number] Clip Quick 2.8mm 230cm - [id number] Implanted:Qty: 1 on 08/11/2020 by Anaid Powell DO at ENDOSCOPY [facility] [email or web address] 09/15/2022 HX-202UR.A / / [id number] Clip Quick 2.8mm 230cm - [id number] Implanted:Qty: 1 on 08/11/2020 by Anaid Powell DO at ENDOSCOPY [facility] [email or web address] 09/15/2022 HX-202UR.A / / [id number] Clip Quick 2.8mm 230cm - [id number] Implanted:Qty: 1 on 08/11/2020 by Anaid Powell DO at ENDOSCOPY [facility] [email or web address] 09/15/2022 HX-202UR.A / / [id number] documented as of this encounter Advance Directives * Full Code (Latest Code Status on File) Date Activated Date Inactivated Comments 12/11/2017 12:38 PM 12/11/2017 7:16 PM This order reflects the patients wishes and were consensually agreed upon. Care Teams Composition Worker Relationship Specialty Start Date End Date Anurag Mora MD [address] [place] [address] PCP - General Internal Medicine 05/06/21 documented as of this encounter
--- OUTSIDE RECORDS SUMMARY | 2024-05-06 08:16 | External Medical Summary | Summary of Care ---
Author Name Unknown Organization [facility] [address] [facility] [address] Phone [phone] Care Team Providers Care Ditch Worker Name Role Phone Anurag Mora MD Primary Care Provider + Reason for Visit * Reason Comments Dosage Adjustment Via Phone (anticoag Cl inic) Encounter Details Date Type Department Care Team (Late st Contact Info) Description 04/15/2024 6:45 AM EDT Anticoagulation Centralized Clinical Pharmacy Services, Ney Castañeda [address] [place] [address] [place] [address] [facility], [address] [place] [address] H/O ischemic multifocal posterior circulation stroke*; History of pulmonary embolism Allergies Active Allergy Reactions Criticality Noted Date Comments Deandre Inhibitors Cough Medium 05/25/2008 Propoxyphene N-Acetaminophen Nausea/vomiting Low 04/26/2010 Gabapentin Nausea/vomiting Low 04/10/2011 Omeprazole 12/05/2002 bad side effects documented as of this encounter (statuses as of 04/15/2024) Medications Medication Sig Dispensed Refills Start Date [...] 10 cm every night at bedtime. Active brotips Verio Flex System w/Device KitIndications:High blood sugar,Type 2 diabetes mellitus with hemoglobin A1c goal of less than 7.0% ([facility]) Use as directed. Use to [...] Tablet by mouth in the morning. Active C4X DiscoveryTouch Delica Plus [id number] :Type 2 diabetes mellitus with hemoglobin A1c goal of less than 7.0% ([facility]),High blood sugar USE TO CHECK GLUCOSE ONCE DAILY 100 Each 3 08/22/2023 Active C4X DiscoveryToGeneCentric Diagnostics Verio In Vitro Strip (Glucose Blood)Indications:Ty pe 2 diabetes mellitus with hemoglobin A1c goal of less than 7.0% ([facility]),High blood sugar USE 1 STRIP [...] as of this encounter (statuses as of 04/15/2024) Active Problems Problem Noted Date Diagnosed Date [...] as of this encounter (statuses as of 04/15/2024) Resolved Problems Problem Noted Date Diagnosed Date Resolved Date Sinus pause 07/26/2018 10/16/2018 History of malignant neoplasm of skin 05/02/2018 04/08/2019 History of migraine 05/02/2018 04/08/20 19 Cryptogenic stroke 01/21/2018 9 Anticoagulated on warfarin 01/21/2018 0 08/05/2021 Prediabetes 08/28/2017 06/30/2021 Overview: Per Prediabetes protocol #1 RLL 1.4 cm nodule 05/04/2011 12/01/2017 Overview: 08/2009 CT -- 83k93nx 11/2012 CT -- 11x8mm, f/u in 18 [...] tubular adenoma Migraine without aura 05/15/20052017 intermediate current use of ant icoagulant therapy 07/08/2003 [...] as of this encounter (statuses as of 04/15/2024) Immunizations Name Administration Dates Next Due COVID-19 mRNA, LNP-s, No Pre serve, 2-Dose Series ([facility]) 04/13/2021,09/11/2020,08/21/2020 COVID-19, LNP-s, No Preserve , Cholo-sucrose, Ages 12+ (Pfizer) 10/20/2021 Covid-19, Mrna, Lnp-s, Pf, B ivalent, 30 Mcg, IM, 12 yrs and above ([facility]) 03/29/2022 H1N1 2009 Influenza, IM 07/02/2009 Pneumococcal [...] as of this encounter Progress Notes * Jewell Barahona, [facility] - 04/15/2024 3:15 PM EDT Medication Therapy Disease Management - Anticoagulation Patient: Arnulfo Morfin | : 1940 Subjective Contacts Contact Date/Time Type Contact Phone/Fax 04/15/2024 03:15 PM EDT Phone (Outgoing) Arnulfo Morfin (Self) [phone] (H) Spoke to Patient Patient-Reported Symptoms: Patient Findings Positives: Hospital admission Comments: Pt was discharged from [facility] to home. Pt was admitted for UTI. Pertinent medications changes Augmentin, not a significant interaction. Advised to call if NVD >24 hours. INR at discharge was 1.1. Pt was provided the following directions at discharge: resume home warfarin regimen with no bridge and repeat INR in 3 days Objective Current Warfarin Dose As of 04/15/2024 Warfarin maintenance plan: 5 mg (2.5 mg x 2) every Shara, Sat; 2.5 mg (2.5 mg x 1) all other days INR Result As of 04/15/2024 INR goal: 2.0-3.0 INR used for dosing: No new INR was available at the time of this encounter. Assessment & Plan Warfarin Plan As of 04/15/2024 Full warfarin instructions: 5 mg every Shara, Sat; 2.5 mg all other days Next INR check: 04/16/2024 Repeat PT/INR in 1 day(s) Weekly dose: not changed Additional Dosing Information: Description (Takes in AM) Omni 1.25mg MWF, 2.5mg all other days - Bactrim DS Jewell Barahona [facility] Clinical Pharmacist 04/15/2024, 3:15 PM documented in this encounter Plan of Treatment Upcoming Encounters Date Type Department Care Team (Late st Contact Info) Description 04/17/2024 2:20 PM EDT Office Visit Family Practice [facility] [address] [place] [address] Fidencio Clemente MD 132 [facility] [place] [address] 04/17/2024 4:15 PM EDT Imaging Radiology [address] [place] [address] 04/18/2024 6:15 PM EDT Anticoagulation Centralized Clinical Pharmacy Services, Ney Castañeda [address] [place] [address] [place] [address] [place] [address] 05/27/2024 8:15 AM EST Office Visit MOHS Surgery [facility] 200 [place] [address] Jewell Pastor MD [address] [place] [address] [place] [address] 06/23/2024 2:30 PM EST Office Visit Cardiology, [facility] [address] [place] [address] Juancho Nelson DO [address] [place] [address] 10/28/2024 2:40 PM EDT Office Visit General Internal Medicine [facility] 200 [facility] [place] [address] Anurag Mora MD 200 [facility] [place] [address] 01/15/2025 1:30 PM EDT Office Visit Neurology [address] [place] [address] Evelyn Mcgill PA-C [address] [place] [address] Scheduled Procedures Name Priority Associated Diagnoses Date/Ti [...] this encounter Medical Devices Implanted Type Area Pig Furnace Operator Device Identifier Shelf Expiration Date Model / Serial / Lot Lens Intraoc 18.0 - [id number] - [id number] Implanted:Qty: 1 on 12/11/2017 by Bryan Alfaro MD at OR [facility] Right: Eye [employer] 07/15/2021 [id number] / [id number] / [id number] Clip Quick 2.8mm 230cm - [id number] Implanted:Qty: 1 on 08/11/2020 by Anaid Powell DO at [facility]COPY [facility] [employer] 09/15/2022 HX-202UR.A / / [id number] Clip Quick 2.8mm 230cm - [id number] Implanted:Qty: 1 on 08/11/2020 by Anaid Powell, DO at ENDOSCOPY [facility] [employer] 09/15/2022 HX-202UR.A / / [id number] Clip Quick 2.8mm 230cm - [id number] Implanted:Qty: 1 on 08/11/2020 by Anaid Powell, DO at [facility] [employer] 09/15/2022 HX-202UR.A / / [id number] Clip Quick 2.8mm 230cm - [id number] Implanted:Qty: 1 on 08/11/2020 by Anaid Powell, DO at ENDOSCOPY [facility] [employer] 09/15/2022 HX-202UR.A / / [id number] documented as of this encounter Visit Diagnoses [...] and were consensually agreed upon. Care Teams Ditch Worker Relationship Specialty Start Date End Date Anurag Mora MD 200 [facility] [place] [address] PCP - General Internal Medicine 05/06/21 documented as of this encounter"
--- OUTSIDE RECORDS SUMMARY | 2024-05-06 08:16 | External Medical Summary | Summary of Care ---
Author Name Unknown Organization [facility] Address [address] [place] [address] Phone [phone] Care Team Providers Care Inventory Administrator Name Role Phone Anurag Mora MD Primary Care Provider + Reason for Referral * Evaluate & Treat - Unlimited Visits (Within 10 days (routine)) - Authorized Specialty Diagnoses / Procedures Referred By Candi poe Referred To Contact Orthopaedic Surgery / Orthopedics Diagnoses Iliopsoas bursitis of right hip Closed nondisplaced fracture of lesser trochanter of right femur, initial encounter ([facility]) Fidencio Clemente MD [address] [place] [address] Referral ID Status Reason Start Date Expiration Date Visits Requested Visits Authorized [id number] Authorized Specialty Services Required 4 999 999 [...] st Contact Info) Description 04/24/2024 Telephone Orthopaedics [facility] [address] [place] [address] Norm Galan DO [address] [place] [address] Referral Allergies Active Allergy Reactions Criticality Noted Date Comments Deandre Inhibitors Cough Medium 05/25/2008 Propoxyphene N-Acetaminophen Nausea/vomiting Low 04/26/2010 Gabapentin Nausea/vomiting Low 04/10/2011 Omeprazole 12/05/2002 bad side effects Propoxyphene High 12/26/2023 Hallucination documented as of this encounter (statuses as of 04/24/2024) Medications Medication Sig Dispensed Refills Start Date End Date Status FOLIC ACID TABS 1 MG ORIndications:Acute MS, anterior wall (HCC) 1 TABLET DAILY 30 [...] hemoglobin A1c goal of less than 7.0% ([facility]) Use as directed. Use to test [...] in the morning. Active OneTouch Delica Plus [id number] :Type 2 diabetes mellitus with hemoglobin A1c goal of less than 7.0% ([facility]),High blood sugar USE TO CHECK GLUCOSE ONCE DAILY 100 Each 3 08/22/2023 Active OneTouch Verio In Vitro Strip (Glucose Blood)Indications:Ty pe 2 diabetes mellitus with hemoglobin A1c goal of less than 7.0% ([facility]),High blood sugar USE 1 STRIP TO [...] hemoglobin A1c goal of less than 7.0% (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 Please schedule appropriately. Please discuss with planner/scheduler why this wasdone in this manner. I have never seen this patient before and it is for a hospital follow up/MRI follow up documented in this encounter Plan of Treatment Upcoming Encounters Date Type Department Care Team (Late st Contact Info) Description 05/01/2024 6:30 AM EDT Anticoagulation Centralized Clinical Pharmacy Services, Ney Castañeda [address] [place] [address] [place] [address] [facility], [address] [place] [address] 05/19/2024 9:00 AM EST Office Visit Orthopaedics [facility] 132 [facility] [place] [address] Norm Galan DO [address] [place] [address] 05/27/2024 8:15 AM EST [facility] 200 [facility] [address] Jewell Pastor MD [address] [place] [address] [place] [address] 06/23/2024 2:30 PM EST Office Visit Cardiology, [facility] 132 [facility] [place] [address] Juancho Nelson DO 132 [facility] [place] [address] 10/28/2024 2:40 PM EDT Office Visit General Internal Medicine [facility] 200 [facility] [place] [address] Anurag Mora MD 200 [facility] [place] [address] 01/15/2025 1:30 PM EDT Office Visit [facility]rology [facility] 200 [facility] [place] [address] [place] Mcgill PA-C [address] [place] [address] Scheduled Procedures Name Priority Associated Diagnoses Date/Ti [...] this encounter Medical Devices Implanted Type Area Blade Bender Furnace Tender Device Identifier Shelf Expiration Date Model / Serial / Lot Lens Intraoc 18.0 - [id number] - [id number] Implanted:Qty: 1 on 12/11/2017 by Bryan Alfaro MD at [facility] Right: Eye [employer] 07/15/2021 [id number] / [id number] / [id number] Clip Quick 2.8mm 230cm - [id number] Implanted:Qty: 1 on 08/11/2020 by Anaid Powell DO at ENDOSCOPY [facility] [employer] 09/15/2022 HX-202UR.A / / [id number] Clip Quick 2.8mm 230cm - [id number] Implanted:Qty: 1 on 08/11/2020 by Anaid Powell DO at END[facility]COPY [facility] [employer] [facility] 09/15/2022 HX-202UR.A / / [id number] Clip Quick 2.8mm 230cm - [id number] Implanted:Qty: 1 on 08/11/2020 by Anaid Powell DO at END[facility]COPY [facility] [employer] 09/15/2022 HX-202UR.A / / [id number] Clip Quick 2.8mm 230cm - [id number] Implanted:Qty: 1 on 08/11/2020 by Anaid Powell DO at ENDOSCOPY [facility] [employer] 09/15/2022 HX-202UR.A / / [id number] documented as of this encounter Visit Diagnoses [...] and were consensually agreed upon. Care Teams Inventory Administrator Relationship Specialty Start Date End Date Anurag Mora MD 200 [facility] [place] [address] PCP - General Internal Medicine 05/06/21 documented as of this encounter
[2024-05-06 08:18] LABS: Basophils # (auto) 0.03 K/uL (0.00-0.20); Basophils % (auto) 0.2 %; Hematocrit (blood only) 33.9 % (42.0-52.0); Hemoglobin 10.9 g/dl (14.0-18.0); Immature Granulocytes # (auto) 0.06 K/uL (0.01-0.20); Immature Granulocytes % (auto) 0.4 %; Lymphocytes # (auto) 0.86 K/uL (1.20-3.40); Lymphocytes % (auto) 6.3 %; Mean Corpuscular Hemoglobin 30.1 pg (25.0-34.0); Mean Corpuscular Hgb Conc 32.2 g/dL (32.0-36.0); Mean Corpuscular Volume 93.6 fL (80.0-100.0); Mean Platelet Volume 10.5 fL (9.4-12.4); Monocytes # (auto) 0.77 K/uL (0.11-0.59); Monocytes % (auto) 5.6 %; Neutrophils % (auto) 87.5 %; Platelet Count 202 K/uL (130-400); RDW Coefficient of Variation 14.7 % (11.5-14.5); RDW Standard Deviation 50.4 fL (36.4-46.3); Red Blood Count 3.62 M/uL (4.70-6.10); White Blood Count 13.72 K/ul (4.8-10.8)
[2024-05-06] MEDS: SODIUM CHLORIDE 0.9% 1,000 ML IV ONE ×3 (08:21→09:31)
--- NOTE | 2024-05-06 08:26 | CT Scan Report ---
CT SCAN OF THE BRAIN WITHOUT IV CONTRAST CLINICAL HISTORY: Fall. COMPARISON STUDY: CT of the brain dated 12/24/2017. TECHNIQUE: Unenhanced axial CT scan of the brain is performed from the vertex to the skull base. A do se lowering technique was utilized adhering to the principles of ALARA. CT DOSE: 703.85 mGy.cm FINDINGS: Brain parenchyma: There is age-related involutional change noting moderate subcortical and periventri cular microangiopathic disease. There is no hemorrhage, mass effect, or evidence of acute territorial ischemia by CT criteria. A chronic lacunar infarct is noted in the left thalamus. Parks-white matter differentiation is preserved. No extra-axial fluid collection is seen. Ventricles, sulci, cisterns: Prominent secondary to involutional change. Intracranial vasculature: There is atherosclerotic calcification of the cavernous carotid and vertebr al arteries. Calvarium: Unremarkable. Sinuses and mastoids: The paranasal sinuses are clear. The mastoid air cells are well pneumatized. Orbits: The bony orbits are grossly intact. There is a right ocular lens implant. IMPRESSION: There is no hemorrhage, mass effect, or evidence of acute territorial ischemia by CT yarely pollack. ACT 112: Negative or not required by law. Electronically signed by: Tex Serrano M.D. 05/06/2024 8:25 AM
[2024-05-06 08:32] LABS: Albumin Globulin Ratio 2.2 (0.9-2); Albumin Level 3.7 gm/dl (3.4-5.0); BUN Creatinine Ratio 26.7 (10-20); Bilirubin,Total 0.8 mg/dl (0.2-1.0); Calcium 8.5 mg/dl (8.6-10.3); Creatinine Clr Calc Pharmacy 69.1 ml/min; Globulin 1.7 gm/dl (2.5-4.0); Magnesium 1.6 mg/dl (1.7-2.4); Potassium 3.9 mmol/L (3.5-5.1); Total Protein 5.4 gm/dl (6.0-8.3)
[2024-05-06 08:38] LABS: INR 4.3 (0.9-1.1); Partial Thromboplastin Ratio 1.4; Partial Thromboplastin Time 37 Seconds (21-31); Prothrombin Time 40.9 Seconds (9.0-12.0)
[2024-05-06 08:45] LABS: Troponin I High Sensitivity 64.4 pg/ml (0-20)
[2024-05-06 08:46] LABS: Thyroid Stimulating Hormone 0.771 uIu/ml (0.300-4.500)
--- NOTE | 2024-05-06 08:53 | XRay Report ---
SINGLE VIEW CHEST CLINICAL HISTORY: Generalized weakness. FINDINGS: 2 AP, portable, upright chest radiographs are compared to study dated 04/03/2024. An electro nathan device projects over the left lower chest. The heart is enlarged. The pulmonary vasculature is no ncongested. There is minimal bibasilar atelectasis. The lungs and pleural spaces are otherwise clear. No pneumothorax is seen. The skeletal structures are osteopenic. The bony thorax is grossly intact. Fusion hardware is seen in the lumbar spine. IMPRESSION: Cardiomegaly with no active disease in the chest. ACT 112: Negative or not required by law. Electronically signed by: Tex Serrano M.D. 05/06/2024 8:51 AM
[2024-05-06 09:03] LABS: Appearance Urine Clear (Clear); Bacteria Urine Automated None Seen (None Seen); Bilirubin Urine Negative (Negative); Blood Urine Negative (Negative); Color Urine Yellow; Epithelial Cell Urine Auto >20 /hpf (0-2); Glucose Urine UA 1+ (Negative); Ketones Urine 1+ (Negative); Leukocyte Esterase Urine Trace (Negative); Nitrite Urine Negative (Negative); Protein Urine 1+ (Negative); RBC Urine Automated 0-2 /hpf (0-2); Specific Gravity Urine 1.021 (1.000-1.030); Urobilinogen Urine Negative (Negative); pH Urine 5.5 (4.5-7.5)
[2024-05-06] MEDS: CEFEPIME 2000MG 2,000 MG/20 ML SYR IV STA (09:19)
[2024-05-06] MEDS: CALCIUM GLUCONATE 1,000 MG/60 ML BAG IV STA (09:29)
[2024-05-06] MEDS: MAGNESIUM SULFATE / D5W 1 GM/100 ML BAG IV STA (09:29)
[2024-05-06 09:43] LABS: Influenza A virus by PCR Negative (Neg); Influenza B virus by PCR Negative (Neg); RSV by PCR Negative (Neg); SARS CoV2 RNA(COVID-19) Ceph NEGATIVE (Negative)
--- NOTE | 2024-05-06 10:17 | History & Physical Report ---
Date of Service May 06, 2024 Assessment & Plan (1) Syncope and collapse: (2) Hematoma of iliopsoas muscle: (3) Retroperitoneal bleed: (4) Hematoma of extraperitoneal space: Plan Mr. Morfin is an 83-year-old male past medical history significant for CAD status post stent, HTN, HLD, history of PAF/PE/recurrent cryptogenic stroke on chronic Coumadin, history of retroperitoneal bleed, PVD with a history of thoracic aortic aneurysm, ABDULLAHI on CPAP at night, BPH with chronic UTI, lls-fjnrcqs-iriboidtl diabetic who presents to ED after being found down next to his bed. Acute metabolic encephalopathy Lactic acidosis Unwitnessed falle - after pt more alert he reports walking into the bedroom and he thinks he passed out, no presyncopal sx Syncope Possible Sepsis admit to PCU pt found on floor next to bed covered in dried feces all over and confused discussed with over phone who is unable to provide history and states, "I don't remember what happened." Pt tx in ED for suspected sepsis given significant lactic acidosis and mild le ukocytosis - also noted pt is on metformin He will have received 3L of IVF in ED along with mag and calcium IV Lactic acid 6.5 --> 4.8, will repeat in 1 hr after bolus fluids complete continue empiric IV Cefepime for now, no source of infection at this time, CXR and urine negative, await blood cultures, MRSA screen after 2 L of IVF pt cognition has improved, he is now A and O x 3 but is unaware of the events that happened obtain EEG, echo, carotid US, orthostatics given syncope He will need a ZIO patch as outpt Complex CM case for d/c needs Addendum @ 1300: CT a/p: Interval development of a large amount of intramuscular and retroperitoneal/extraperitoneal hemorrhage since CT of April 11, 2024. This includes intramuscular hemorrhage within the left psoas, iliopsoas, iliacus, left adductor and left thigh musculature, partially imaged on this exam. Associated extraperitoneal and retroperitoneal hemorrhage, including perinephric hemorrhage, as described above. This finding will be called/faxed to the ordering provider at time of dictation. Discussed with Dr. Osman who recommends IV Vit K and Kcentra Type and cross, place 4 units on hold, blood consent obtained Blood consent was obtained from the patient (or patient delegate) as delegated by Dr. Velazquez. Risks and benefits were explained. All questions were answered, and the patient (or patient delegate) was offered the opportunity to discuss with attending physician and declined. H/H q6hr consult General surgery and Urology regarding specific areas of hemorrhage to determine if any intervention is required vs. conservative management given that this is pts 2 significant hemorrhage in 1 months time it is strongly recommended pt cease warfarin as the risk of bleed outweighs stroke risk Supratherapeutic INR Chronic anticoagulation hx PE recurrent CVA cryptogenic stroke INR 4.3 on admission, no current signs of bleeding Stop Warfarin IV Vit K and K centra Chronic normocytic Anemia History of Retroperitoneal Bleed c/b R iliopsoas Hematoma b12 deficiency Continue home folate, iron and b12 supplements Pt hgb downtrended from previous admission 13-14 --> 10.[address] a/p given recent intramuscular hematoma check FOBT, repeat hgb @ 1600 HTN hx CAD Elevated troponin Chronic, status post stent Holding losartan and amlodipine for now given bp on softer side Continue metoprolol Last echo 01/2024 - preserved EF, will update given syncope HLD: Chronic Takes rosuvastatin; hold, repeat CK in am., if remains negative then resume CIC performs 3-4 times daily at baseline will bladder scan BPH/chronic recurrent UTI on chronic methenamine Rx continue tamsulosin/finasteride 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 He states pt is very confused and has severe dementia. It is becoming very difficult for the patient. The son also lives there but sleeps during the day, ?works at night. It is evident pt needs more support at home. Complex case management issues. Pt was seen and examined in collaboration with Dr. Velazquez, please see addendum I spent a total of 96 minutes reviewing notes, outpatient records, labs, medication, coordinating, documenting and providing care for this patient excluding time spent in the performance of separately billed services. History of Present Illness Chief Complaint: Found on ground next to bed covered in feces. Primary Care Provider: Anurag Mora MD Mr. Morfin is an 83-year-old male past medical history significant for CAD status post stent, HTN, HLD, history of PAF/PE/recurrent cryptogenic stroke on chronic Coumadin, history of retroperitoneal bleed, PVD with a history of thoracic aortic aneurysm, ABDULLAHI on CPAP at night, BPH with chronic UTI, iic-pwoocst-jjqjbxmmn diabetic who presents to ED after being found down next to his bed. Hx provided from pt himself and chart review. Pt was technically a, "trauma alert," due to being on warfarin and being found on ground, but it is suspected he fell out of bed. Initially when pt presented to ED he was very confused and hx unobtainable. He was found by son this morning laying out of bed, covered in stool and confused. When asked what the patient last remembers, he states, "going to bed." He does not recall any events of falling out of bed. He denies any recent illness. He re calls being hospitalized in March due to hematuria, blood in his R pelvis and a UTI. He typically ambulates with assist device. He states he lives with his and son. He denies f/c/s, chest pain, sob, n/v/d. He c/o R hip pain which has been present for weeks and he is following orthopedics. In ED pt was hemodynamically stable. He had a lactic acidosis of 6.5, elevated trop in 60s, glucose 223, INR 4.3, wbc 13k,mag 1.6, CK WNL, NH3 WNL, UA negative and head CT negative. He received 2L of IVF and was covered empirically with IV cefepime. Per ED RN upon my evaluation and 1.5L of IVF pt has become more alert and less confused. Allergies Allergy/AdvReac Type Severity Reaction Status Date / Time propoxyphene Allergy Intermediate Hallucinati Verified 02/27/24 23:05 ng omeprazole Allergy Unknown Unknown Verified 02/27/24 23:05 ELINOR Inhibitors AdvReac Mild Cough Verified 02/27/24 23:05 gabapentin AdvReac Mild Nausea Verified 02/27/24 23:05 Home Medications Medication Instructions Recorded Confirmed Type cetirizine 10 mg tablet (Zyrtec) 10 mg PO PM 08/14/19 05/06/24 History folic acid 1 mg tablet 1 mg PO QAM 08/14/19 05/06/24 History losartan 50 mg tablet 50 mg PO PM 08/14/19 05/06/24 History metoprolol succinate 25 mg 25 mg PO QAM 08/14/19 05/06/24 History tablet,extended release 24 hr nitroglycerin 0.4 mg sublingual 0.4 mg sublingual UD PRN Chest Pain 08/14/19 05/06/24 History tablet pantoprazole 40 mg tablet,delayed 40 mg PO QAM 08/14/19 05/06/24 History release polyethylene glycol 3350 17 17 g PO DAILY PRN Constipation 08/14/19 05/06/24 History gram/dose oral powder (Miralax) rosuvastatin 20 mg tablet 20 mg PO PM 08/14/19 05/06/24 History cholecalciferol (vitamin D3) 25 25 mcg PO PM 05/22/20 05/06/24 History mcg (1,000 unit) tablet (Vitamin D3) lorazepam 1 mg tablet 0.5 mg PO ONCE HS PRN Insomnia 05/22/20 05/06/24 History ropinirole 0.25 mg tablet 0.25 mg PO HS 03/11/21 05/06/24 History ferrous sulfate 325 mg (65 mg 325 mg PO QPM 12/05/21 05/06/24 History iron) tablet (Iron (ferrous sulfate)) psyllium husk 3.4 gram/5.4 gram 1 tsp PO DAILY PRN Constipation 12/05/21 05/06/24 History oral powder (Metamucil) metformin 1,000 mg tablet 1,000 mg PO BID 04/08/22 05/06/24 History warfarin 2.5 mg tablet 5 mg PO 2XWK 06/21/22 05/06/24 History amlodipine 2.5 mg tablet 2.5 mg PO QAM 01/26/24 05/06/24 History calcipotriene 0.005 % topical cream 1 applic topical .BID UD 01/26/24 05/06/24 History cyanocobalamin (vitamin B-12) 1,000 mcg PO DAILY 01/26/24 05/06/24 History 1,000 mcg tablet (Vitamin B-12) duloxetine 60 mg capsule,delayed 60 mg PO QPM 01/26/24 05/06/24 History release dutasteride 0.5 mg capsule 0.5 mg PO HS 01/26/24 05/06/24 History tamsulosin 0.4 mg capsule 0.4 mg PO DAILY 02/27/24 05/06/24 History warfarin 2.5 mg tablet 2.5 mg PO 5XWK 02/27/24 05/06/24 History acetaminophen 325 mg tablet 650 mg (2 x 325 mg) PO QID PRN 02/29/24 05/06/24 Rx mild pain (scale score 1-4) #0 tabs diclofenac sodium 1 % topical gel 4 g EXT Q8H #0 grams 02/29/24 05/06/24 Rx (Voltaren Arthritis Pain) tramadol 50 mg tablet 25 - 50 mg (0.5 - 1 x 50 mg) PO 02/29/24 05/06/24 Rx Q4H PRN #0 tabs methenamine hippurate 1 gram tablet 1 g PO BID #180 tabs 03/21/24 05/06/24 Rx Past Med/Surg History Problem List Hematoma of extraperitoneal space Syncope and collapse Complicated UTI (urinary tract infection) Coronary artery disease follows with Sleep apnea cpap Intramuscular hematoma (Acute) Acute UTI (urinary tract infection) (Acute) Gross hematuria (Acute) Acute hip pain (Acute) First degree AV block Sinus tachycardia Retroperitoneal bleed Hematoma Contusion of leg, right (Acute) Recurrent UTI (urinary tract infection) Heme positive stool Stroke Migraine headache (Chronic) Urinary retention Incomplete emptying of bladder Elevated prostate specific antigen (PSA) Gastric polyp Encounter for pre-operative examination Encounter for pre-operative examination Colon polyp Anemia Anemia (Acute) Anemia Encounter for pre-operative examination Status post recent transurethral resection of prostate (Chronic) Status post lumbar laminectomy (Chronic) BPH (benign prostatic hyperplasia) (Chronic) History of pulmonary embolism (Chronic) early , post op complication > Warfarin Dyslipidemia (Chronic) Medical History Supratherapeutic INR Hypotension Hematuria Supratherapeutic INR Diabetes mellitus, type 2 On anticoagulant therapy warfarin daily Hard of hearing Peripheral neuropathy bilat legs Restless leg syndrome Urinary retention on occasion, meds help per pt Stroke 2018 > no residual effects > [facility] > was in therapy for reading for a while, all better now > doesn't see neuro anymore Myocardial Infarction early Pancreatic cyst just monitoring PAF (paroxysmal atrial fibrillation) Elevated INR T2DM (type 2 diabetes mellitus) Actinic keratosis History of SCC (squamous cell carcinoma) of skin removed History of basal cell carcinoma removed Chronic urinary tract infection Thoracic aortic aneurysm follows with Dr. Poole with [facility]> last checked around October 2020 > unsure of size Hypertension CVA (cerebral vascular accident) Surgical History History of cardiac cath several > late 1989's early , last one 2007> no stents any time History of tooth extraction History of esophagogastroduodenoscopy (EGD) History of colonoscopy last 12/09/21 @ [facility] History of cataract surgery right Hx of tonsillectomy Family History Father Prostate cancer Diabetes Heart disease Hypertension Other No family history of adverse response to anesthesia Social History Smoking Status: Never smoker Second Hand Exposure: No; Do You Dip or Chew Tobacco: No; Tobacco Cessation Education Requested by Patient: No Hx Alcohol Use: No Hx Substance Use: No Preferred Language: Mosotho Communication Ability: Effective Welfare Aide Required: No Beliefs That Will Affect Care: None marital status: Current Living Situation: Spouse and Family Current Living Situation Comment: Lives with and son current occupational status: retired Other Information That Helps Us Care for You: No Feels Safe at Home: Yes Safety Concerns: Feels Safe At This Time Diet: regular Assistive Devices: Cane and Hearing Aid - Bilateral Review of Systems Review of Systems: All systems reviewed & are unremarkable except as noted in HPI & below Physical Exam Physical Exam: Constitutional: WD/WN, male, vitals as above, NAD, sitting up in bed, pleasant, conversing easily , [place] Head: Normocephalic, Atraumatic Eyes: PERRL, conjunctivae normal, anicteric sclerae ENMT: external ear and nose normal, oropharynx normal Neck: trachea midline, no thyromegaly normal visual inspection Respiratory: normal respiratory effort, lungs clear to auscultation, no wheeze, rales, rhonchi. Normal insp/exp effort, no accessory muscle use Cardiovascular: RRR, no murmur, no edema Vessels: no JVD or carotid bruit Chest: normal inspection of chest Abdomen: normal bowel sounds, soft, nontender, no hepatosplenomegaly Musculoskeletal: no cyanosis or clubbing, AROM x 4 Skin: no rashes, + fecal matter crusted to skin, warm and dry normal turgor Neurologic: no face palsy, no dysarthria CN's II-XI intact bilaterally and moves all extremities Psychiatric: A+Ox3 to basics, euthymic affect Lymphatic: no cervical or axillary lymphadenopathy : deferred Results & Data Results & Data Vital Signs (Past 12 Hours) Vital Signs Temp Pulse Pulse Resp BP BP Pulse Ox 05/06/24 08:39 88 19 97 05/06/24 08:30 115/62 05/06/24 08:24 87 23 94 05/06/24 08:15 83 05/06/24 07:37 80 20 95 05/06/24 07:35 36.6 C 80 20 121/80 94 05/06/24 07:35 36.6 C 82 20 119/81 94 05/06/24 07:35 36.6 C 82 20 94 05/06/24 07:14 94 O2 Del Method 05/06/24 08:39 05/06/24 08:30 05/06/24 08:24 05/06/24 08:15 05/06/24 07:37 Room Air 05/06/24 07:35 Room Air 05/06/24 07:35 Room Air 05/06/24 07:35 Room Air 05/06/24 07:14 Room Air Laboratory Results I have independently reviewed and interpreted patient's admitting labs including CBC, CMP, CK, NH3, UA, PT/INR, mag and troponin. Diagnostic Findings Chest X-Ray 05/06/24 07:37 SINGLE VIEW CHEST CLINICAL HISTORY: Generalized weakness. FINDINGS: 2 AP, portable, upright chest radiographs are compared to study dated 04/03/2024. An electronic device projects over the left lower chest. The heart is enlarged. The pulmonary vasculature is noncongested. There is minimal bibasilar atelectasis. The lungs and pleural spaces are otherwise clear. No pneumothorax is seen. The skeletal structures are osteopenic. The bony thorax is grossly intact. Fusion hardware is seen in the lumbar spine. IMPRESSION: Cardiomegaly with no active disease in the chest. ACT 112: Negative or not required by law. Electronically signed by: Tex Serrano M.D. 05/06/2024 8:[address] 05/06/24 07:37 CT SCAN OF THE BRAIN WITHOUT IV CONTRAST CLINICAL HISTORY: Fall. COMPARISON STUDY: CT of the brain dated 12/24/2017. TECHNIQUE: Unenhanced axial CT scan of the brain is performed from the vertex to the skull base. A dose lowering technique was utilized adhering to the principles of ALARA. CT DOSE: 703.85 mGy.cm FINDINGS: Brain parenchyma: There is age-related involutional change noting moderate subcortical and periventricular microangiopathic disease. There is no hemorrhage, mass effect, or evidence of acute territorial ischemia by CT criteria. A chronic lacunar infarct is noted in the left thalamus. Parks-white matter differentiation is preserved. No extra-axial fluid collection is seen. Ventricles, sulci, cisterns: Prominent secondary to involutional change. Intracranial vasculature: There is atherosclerotic calcification of the cavernous carotid and vertebral arteries. Calvarium: Unremarkable. Sinuses and mastoids: The paranasal sinuses are clear. The mastoid air cells are well pneumatized. Orbits: The bony orbits are grossly intact. There is a right ocular lens implant. IMPRESSION: There is no hemorrhage, mass effect, or evidence of acute territorial ischemia by CT criteria. ACT 112: Negative or not required by law. Electronically signed by: Tex Serrano M.D. 05/06/2024 8:25 AM Medications Administered Medication List Discontinued Medications Sodium Chloride (Nss) 1,000 mls @ 999 mls/hr IV .Q1H1M ONE Stop: 05/06/24 09:16 Last Admin: 05/06/24 09:18 Dose: 999 mls/hr Documented By: Infusion: 05/06/24 09:18 Dose: Infused Documented By: Admin: 05/06/24 08:21 Dose: 999 mls/hr Documented By: KLAUDIA Cefepime HCl (Maxipime 2000mg) 2,000 mg in 20 mls @ 5 mls/min IV NOW STA Stop: 05/06/24 08:23 Last Admin: 05/06/24 09:19 Dose: 5 mls/min Documented By: CAROLEE Sodium Chloride (Nss) 1,000 mls @ 999 mls/hr IV .Q1H1M ONE Stop: 05/06/24 09:25 Last Admin: 05/06/24 09:31 Dose: 999 mls/hr Documented By: CAROLEE Magnesium Sulfate/Dextrose (Magnesium Sulfate / D5w) 1 gm in 100 mls @ 100 ml s/hr IV NOW STA Stop: 05/06/24 09:35 Last Admin: 05/06/24 09:29 Dose: 100 mls/hr Documented By: CAROLEE Calcium Gluconate () 1,000 mg in 60 mls @ 240 mls/hr IV NOW STA Stop: 05/06/24 08:50 Last Admin: 05/06/24 09:29 Dose: 240 mls/hr Documented By: CAROLEE Sodium Chloride (Nss) 1,000 mls @ 999 mls/hr IV .Q1H1M ONE Stop: 05/06/24 09:56 Last Admin: 05/06/24 09:19 Dose: 999 mls/hr Documented By: CAROLEE Code Status & VTE Plan VTE Prophylaxis Plan VTE Prophylaxis will be ordered: No Reason for no VTE drug order: Treatment not indicated Supervising Physician Co-Signing Physician Notes 83-year-old male with PMH of CAD status post stent, HTN, HLD, PAF/PE/recurrent cryptogenic stroke on chronic Coumadin, retroperitoneal bleed, PVD, thoracic aortic aneurysm, ABDULLAHI on CPAP at night, BPH with chronic UTI, NIDDM presented to the ED after being found down on the hard floor next to his bed. Per patient, he remembers going upstairs to go to his bedroom and once in the bedroom "boom". He does not remember anything after that. He is able to tell that he did not have nausea or sweating prior to fall. He did state that he had 1 episode of diarrhea last night and can't relate how far away from the fall he did move that bowel. He was apparently confused even after he woke up when he was found on the floor by his son the following morning. He was also covered in the stool. Patient also complains of sore throat, mild erythema noted on exam. He denies headache/dizziness/cough/chest pain/palpitation/nausea/vomiting/pain or burning while passing urine/changes in appetite. Labs and Imaging reviewed: WBC elevated at 13.72K [does not appear to be hemoconcentration], lactate elevated at 6.5, hemoglobin 10.9 (baseline around 12-14). Procal neg. renal function and electrolytes fairly WNL except for magnesium 1.6. ---> replete Mg. UA negative for UTI. PT/INR 4.3 CXR with no active disease. CT head with no acute findings. Troponin elevated at 64, then 70. EKG with sinus rhythm with first-degree AV block, QTc 495. No acute ST or T changes noted. Blood culture pending Active problems: Acute metabolic encephalopathy, rule out infection: UA negative, patient denies pain or burning while passing urine. Patient denies cough, does have sore throat and mild erythema on exam. Send full respiratory [employer], sent stool PCR if with further diarrhea. Follow admitting blood culture, send CTAP to rule out bleed/infection. Increase blood lactic acid level: Lactic acid trending down, continue with IV fluid, trend lactic acid until normal. Possible sepsis, infectious source unknown: c/w cefepime empirically. Unwitnessed fall: Send orthostatic vitals, fall precaution, get EEG, Zio patch monitoring on discharge. Trend CPK in AM. Low threshold for repeat CT Head if w/ any headache or confusion. PT/OT. Supratherapeutic INR, history of PE and PAF: Hold warfarin, PT/INR in AM. if bleeding noted in CTAP, will need reversal. On exam: GENERAL: Alert and oriented x3. NAD, on RA. appropriate response, slow to res pond. very [place]. HEENT: No pallor, no icterus. Pupils equal, round and reactive to light. Oral mucosa dry. mild erythema of throat. NECK: No JVD, no neck masses. HEART: S1 and S2 heard. Regular rate and rhythm. HR in 90s. No murmur, no gallop. RESPIRATORY SYSTEM: Normal AP diameter. No accessory muscle use. No wheezing, no crackles. ABDOMEN: Soft, bowel sounds present, nontender, no distention. CENTRAL NERVOUS SYSTEM: No facial droop. Speech is clear. Obeys simple commands. Moves extremities. EXTREMITIES: No edema, no erythema seen. C-spine, shoulder girdle, chest, pelvic girdle compression test neg. CTAP came back as "Interval development of a large amount of intramuscular and retroperitoneal/extraperitoneal hemorrhage since CT of April 11, 2024. This includes intramuscular hemorrhage within the left psoas, iliopsoas, iliacus, left adductor and left thigh musculature, partially imaged on this exam. Associated extraperitoneal and retroperitoneal hemorrhage, including perinephric hemorrhage. Will consult gen sx, will give vit K 5 mg iv, repeat pt/inr in 3 hours of vit K, HnH every 6 hours, blood transfusion consent. Obtain uro consult for perinephric Hge. Gen sx evaled, conservatice mx for now, if w/ deterioration, will need transfer. Case w/ d/w dr osman as well, veda given. I have seen and examined the patient and have discussed the case with the provider above. I agree with the assessment and plan as stated. time spent: 50 min.
[2024-05-06] MEDS: SODIUM CHLORIDE 0.9% 500 ML IV ONE (11:21)
[2024-05-06] MEDS ORDERED: ALUMINUM/MAGNESIUM SUSP 30 ML UDC PO PRN (11:55)
[2024-05-06] MEDS ORDERED: GLUCAGON FOR INJ 1 MG VIAL SQ PRN (11:55)
[2024-05-06] MEDS ORDERED: DEXTROSE 50% 50 ML SYRINGE IV PRN (11:55)
[2024-05-06] MEDS ORDERED: POLYETHYLENE (MIRALAX) 17 GM PACK PO PRN (11:55)
[2024-05-06] MEDS ORDERED: CARBOHYDRATES FOR HYPOGLYCEMIA PO PRN (11:55)
[2024-05-06] MEDS ORDERED: GLUCOSE 40% GEL 15 GM TUBE PO PRN (11:55)
[2024-05-06] MEDS ORDERED: ACETAMINOPHEN 325 MG TAB PO PRN (11:55)
[2024-05-06] MEDS ORDERED: ONDANSETRON INJ 2 MG/ML 2 ML VIAL IV PRN (11:55)
[2024-05-06] MEDS ORDERED: GLUCOSE 10 TAB/TUBE PO PRN (11:55)
[2024-05-06] MEDS ORDERED: FAMOTIDINE 20 MG TAB PO PRN (11:55)
--- NOTE | 2024-05-06 12:33 | CT Scan Report ---
CT OF THE ABDOMEN AND PELVIS WITHOUT CONTRAST CLINICAL HISTORY: pain, recent R iliopsoas hematoma COMPARISON STUDY: CT of the abdomen and pelvis April 11, 2024. TECHNIQUE: Axial images of the abdomen and pelvis were obtained without IV contrast. Images were revi ewed in the axial, sagittal, and coronal planes. Automated exposure control was utilized for the ami dy. A dose lowering technique was utilized adhering to the principles of ALARA. FINDINGS: There are trace bilateral pleural effusions. Dilatation of visualized portions of the ascen ding aorta measuring up to 5.1 cm is again noted. There is extensive coronary artery calcification. T he heart is mildly enlarged. There are gallstones within the gallbladder are present. Unenhanced imag es of the liver, spleen, adrenal glands and pancreas are unremarkable. There is no hydronephrosis. Th ere is mild bladder wall thickening. Water attenuation left renal lesions are suboptimally assessed o n this unenhanced exam but favor cysts. There has been interval development of extensive intramuscula r hemorrhage within the left psoas, iliopsoas and iliacus muscles as well as partially visualized int ramuscular hemorrhage within the left adductor and proximal left thigh musculature. There is moderate associated extraperitoneal/retroperitoneal hemorrhage which extends across the midline. This mildly displaces the left kidney. Bilateral perirenal hemorrhage is present. Old right iliopsoas hematoma is present. There is also hemorrhage within a left inguinal hernia. No acute fractures are identified. Postoperative finding within the spine are unchanged. The prostate is enlarged. IMPRESSION: 1. Interval development of a large amount of intramuscular and retroperitoneal/extraperitoneal hemorr quan since CT of April 11, 2024. This includes intramuscular hemorrhage within the left psoas, il iopsoas, iliacus, left adductor and left thigh musculature, partially imaged on this exam. Associated extraperitoneal and retroperitoneal hemorrhage, including perinephric hemorrhage, as described above . This finding will be called/faxed to the ordering provider at time of dictation. 2. No hydronephrosis. 3. No bowel obstruction. 4. Old right iliopsoas hematoma with intramuscular calcifications. ACT 112: Negative or not required by law. Electronically signed by: Osiel Gabriel M.D. 05/06/2024 12:32 PM
[2024-05-06] MEDS ORDERED: SODIUM CHLORIDE 0.9% 100 ML IV PRN (12:54)
[2024-05-06] MEDS: INSULIN ASPART PER UNIT CHARGE SC SCH (13:39)
[2024-05-06] MEDS: METOPROLOL SUCC 25MG EXT REL TAB PO SCH (13:42)
[2024-05-06] MEDS: PHYTONADIONE 5 MG in DEXTROSE 5% 50 ML IV ONE (13:48)
[2024-05-06] MEDS: PHYTONADIONE 10 MG in DEXTROSE 5% 50 ML IV ONE (13:48)
--- NOTE | 2024-05-06 13:52 | Surgery Consultation ---
Date of Consultation May 06, 2024 Assessment & Plan (1) Intramuscular hematoma: This is an 83yM with a PMH of coronary artery disease, BPH, h/o PE, h/o stroke, on coumadin who presents to the [facility] ED on 05/06/24 with complaints of inability to walk and get out of bed after a fall/passing out episode last evening. Per chart review however, it appears patient was confused this AM and may be unable to fully remember the events that occurred yesterday and this AM. However it appears regardless there was likely some sort of fall yesterday and the patient was found out of his bed this AM. Patient states he does have some pain of his R lower extremity laterally, however otherwise no complaints. As part of his workup her underwent a CT a/p that revealed interval development of a large amount of intramuscular and retroperitoneal/extraperitoneal hemorrhage since CT of April 11, 2024. This includes intramuscular hemorrhage within the left psoas, iliopsoas, iliacus, left adductor and left thigh musculature, partially imaged on this exam. Associated extraperitoneal and retroperitoneal hemorrhage, including perinephric hemorrhage noted. The patient lives at home with his who has dementia and a son who works the recreation program coordinator. He says he is ambulatory for the most part at home. He currently denies any fevers/chills, CP/SOB, lightheadedness/dizziness, abdominal pain, nausea/vomiting, or change in bowel or bladder habits. Of note the patient was here back in January with a CT read of a RIGHT iliopsoas intramuscular hematoma with extension of hemorrhage into the right retroperitoneal space. This was managed conservatively with INR reversal and monitoring. Today's blood work shows a WBC 13, Hbg 10.9, INR 4.3, Cr 1. Vitals are stable with HRs 80s and stable BPs. On exam patient is awake and in no distress. Abdomen is soft, non distended, overall non tender outside of some mild left sided discomfort. His R buttock and thigh are noted without bruising/skin changes or significant swelling. mild discomfort to palpation. Agree with hospitalization and reversal of INR. Would continue to monitor vitals closely in addition to at least q6h Hbg for now to ensure stability. patient has been type and screened in the event blood transfusion becomes indicated. no plans for acute surgical intervention at this time. if patient's hbg continues to drop or he has a worrisome change in vitals please inform us, however hopefully he will improve with supportive care as previous admission. if intervention becomes warranted he may benefit from transfer to a center with IR capabilities for embolization if needed. History of Present Illness Attending Physician: Dustin Velazquez MD History of Present Illness This is an 83yM with a PMH of coronary artery disease, BPH, h/o PE, h/o stroke, on coumadin who presents to the [facility] ED on 05/06/24 with complaints of inability to walk and get out of bed after a fall/passing out episode last evening. Per chart review however, it appears patient was confused this AM and may be unable to fully remember the events that occurred yesterday and this AM. However it appears regardless there was likely some sort of fall yesterday and the patient was found out of his bed this AM. Patient states he does have some pain of his R lower extremity laterally, however otherwise no complaints. As part of his workup her underwent a CT a/p that revealed interval development of a large amount of intramuscular and retroperitoneal/extraperitoneal hemorrhage since CT of April 11, 2024. This includes intramuscular hemorrhage within the left psoas, iliopsoas, iliacus, left adductor and left thigh musculature, partially imaged on this exam. Associated extraperitoneal and retroperitoneal hemorrhage, including perinephric hemorrhage noted. The patient lives at home with his who has dementia and a son who works the recreation program coordinator. He says he is ambulatory for the most part at home. He currently denies any fevers/chills, CP/SOB, lighth eadedness/dizziness, abdominal pain, nausea/vomiting, or change in bowel or bladder habits. Of note the patient was here back in January with a CT read of a RIGHT iliopsoas intramuscular hematoma with extension of hemorrhage into the right retroperitoneal space. This was managed conservatively with INR reversal and monitoring. Last ate yesterday and last took his coumadin yesterday. Allergies Allergy/AdvReac Type Severity Reaction Status Date / Time propoxyphene Allergy Intermediate Hallucinati Verified 02/27/24 23:05 ng omeprazole Allergy Unknown Unknown Verified 02/27/24 23:05 ELINOR Inhibitors AdvReac Mild Cough Verified 02/27/24 23:05 gabapentin AdvReac Mild Nausea Verified 02/27/24 23:05 Home Medications Medication Instructions Recorded Confirmed Type cetirizine 10 mg tablet (Zyrtec) 10 mg PO PM 08/14/19 05/06/24 History folic acid 1 mg tablet 1 mg PO QAM 08/14/19 05/06/24 History losartan 50 mg tablet 50 mg PO PM 08/14/19 05/06/24 History metoprolol succinate 25 mg 25 mg PO QAM 08/14/19 05/06/24 History tablet,extended release 24 hr nitroglycerin 0.4 mg sublingual 0.4 mg sublingual UD PRN Chest Pain 08/14/19 05/06/24 History tablet pantoprazole 40 mg tablet,delayed 40 mg PO QAM 08/14/19 05/06/24 History release polyethylene glycol 3350 17 17 g PO DAILY PRN Constipation 08/14/19 05/06/24 History gram/dose oral powder (Miralax) rosuvastatin 20 mg tablet 20 mg PO PM 08/14/19 05/06/24 History cholecalciferol (vitamin D3) 25 25 mcg PO PM 05/22/20 05/06/24 History mcg (1,000 unit) tablet (Vitamin D3) lorazepam 1 mg tablet 0.5 mg PO ONCE HS PRN Insomnia 05/22/20 05/06/24 History ropinirole 0.25 mg tablet 0.25 mg PO HS 03/11/21 05/06/24 History ferrous sulfate 325 mg (65 mg 325 mg PO QPM 12/05/21 05/06/24 History iron) tablet (Iron (ferrous sulfate)) psyllium husk 3.4 gram/5.4 gram 1 tsp PO DAILY PRN Constipation 12/05/21 05/06/24 History oral powder (Metamucil) metformin 1,000 mg tablet 1,000 mg PO BID 04/08/22 05/06/24 History warfarin 2.5 mg tablet 5 mg PO 2XWK 06/21/22 05/06/24 History amlodipine 2.5 mg tablet 2.5 mg PO QAM 01/26/24 05/06/24 History calcipotriene 0.005 % topical cream 1 applic topical .BID UD 01/26/24 05/06/24 History cyanocobalamin (vitamin B-12) 1,000 mcg PO DAILY 01/26/24 05/06/24 History 1,000 mcg tablet (Vitamin B-12) duloxetine 60 mg capsule,delayed 60 mg PO QPM 01/26/24 05/06/24 History release dutasteride 0.5 mg capsule 0.5 mg PO HS 01/26/24 05/06/24 History tamsulosin 0.4 mg capsule 0.4 mg PO DAILY 02/27/24 05/06/24 History warfarin 2.5 mg tablet 2.5 mg PO 5XWK 02/27/24 05/06/24 History acetaminophen 325 mg tablet 650 mg (2 x 325 mg) PO QID PRN 02/29/24 05/06/24 Rx mild pain (scale score 1-4) #0 tabs diclofenac sodium 1 % topical gel 4 g EXT Q8H #0 grams 02/29/24 05/06/24 Rx (Voltaren Arthritis Pain) tramadol 50 mg tablet 25 - 50 mg (0.5 - 1 x 50 mg) PO 02/29/24 05/06/24 Rx Q4H PRN #0 tabs methenamine hippurate 1 gram tablet 1 g PO BID #180 tabs 03/21/24 05/06/24 Rx Patient History Medical History Supratherapeutic INR Hypotension Hematuria Supratherapeutic INR Diabetes mellitus, type 2 On anticoagulant therapy warfarin daily Hard of hearing Peripheral neuropathy bilat legs Restless leg syndrome Urinary retention on occasion, meds help per pt Stroke 2017 > no residual effects > [facility] > was in therapy for reading for a while, all better now > doesn't see neuro anymore Myocardial Infarction early Pancreatic cyst just monitoring PAF (paroxysmal atrial fibrillation) Elevated INR T2DM (type 2 diabetes mellitus) Actinic keratosis History of SCC (squamous cell carcinoma) of skin removed History of basal cell carcinoma removed Chronic urinary tract infection Thoracic aortic [facility] checked around October 2020 > unsure of size Hypertension CVA (cerebral vascular accident) Surgical History History of cardiac cath several > late 1989's early s, last one 2007> no stents any time History of tooth extraction History of esophagogastroduodenoscopy (EGD) History of colonoscopy last 12/09/21 @ [facility] History of cataract surgery right Hx of tonsillectomy Family History Father Prostate cancer Diabetes Heart disease Hypertension Other No family history of adverse response to anesthesia Social History Smoking Status: Never smoker Second Hand Exposure: No; Do You Dip or Chew Tobacco: No; Tobacco Cessation Education Requested by Patient: No Hx Alcohol Use: No Hx Substance Use: No Preferred Language: Urdu Communication Ability: Effective Restaurant Cashier Required: No Beliefs That Will Affect Care: None marital status: Current Living Situation: Spouse and Family Current Living Situation Comment: Lives with and son current occupational status: retired Other Information That Helps Us Care for You: No Feels Safe at Home: Yes Safety Concerns: Feels Safe At This Time Diet: regular Assistive Devices: Cane and Hearing Aid - Bilateral Review of Systems Constitutional: no fever and no chills Respiratory: no dyspnea Cardiovascular: no chest pain Gastrointestinal: no abdominal pain, no bloating, no nausea, no vomiting, no change in bowel habits and no blood in stools Genitourinary: no problem reported Musculoskeletal: pain in R lateral thigh/buttocks, extending down to knee Neurologic: no dizziness Physical Exam Physical Exam: awake, no distress Respiratory: normal respiratory effort Gastrointestinal (Abdomen): Inspection/Auscultation: abdomen not distended Percussion/Palpation: + abdomen tender (reported some mild LLQ discomfort to palpation ) and abdomen soft Musculoskeletal: R buttock/lateral thigh without bruising/skin changes or significant swelling. mild discomfort to palpation Results & Data Vital Signs (Past 12 Hours) Vital Signs Temp Pulse Pulse Pulse Resp BP BP 05/06/24 12:21 97.5 F L 87 23 152/88 H 05/06/24 11:37 76 17 159/88 H 05/06/24 11:12 79 19 159/88 H 05/06/24 10:51 83 17 05/06/24 08:39 88 19 05/06/24 08:30 115/62 05/06/24 08:24 87 23 05/06/24 08:15 83 05/06/24 07:37 80 20 05/06/24 07:35 97.9 F 80 20 121/80 05/06/24 07:35 97.9 F 82 20 119/81 05/06/24 07:35 97.9 F 82 20 05/06/24 07:14 Pulse Ox O2 Del Method 05/06/24 12:21 97 Room Air 05/06/24 11:37 95 Room Air 05/06/24 11:12 98 05/06/24 10:51 97 05/06/24 08:39 97 05/06/24 08:30 05/06/24 08:24 94 05/06/24 08:15 05/06/24 07:37 95 Room Air 05/06/24 07:35 94 Room Air 05/06/24 07:35 94 Room Air 05/06/24 07:35 94 Room Air 05/06/24 07:14 94 Room Air Diagnostic Findings CT OF THE ABDOMEN AND PELVIS WITHOUT CONTRAST CLINICAL HISTORY: pain, recent R iliopsoas hematoma COMPARISON STUDY: CT of the abdomen and pelvis April 11, 2024. TECHNIQUE: Axial images of the abdomen and pelvis were obtained without IV contrast. Images were reviewed in the axial, sagittal, and coronal planes. Automated exposure control was utilized for the study. A dose lowering technique was utilized adhering to the principles of ALARA. FINDINGS: There are trace bilateral pleural effusions. Dilatation of visualized portions of the ascending aorta measuring up to 5.1 cm is again noted. There is extensive coronary artery calcification. The heart is mildly enlarged. There are gallstones within the gallbladder are present. Unenhanced images of the liver, spleen, adrenal glands and pancreas are unremarkable. There is no hydronephrosis. There is mild bladder wall thickening. Water attenuation left renal lesions are suboptimally assessed on this unenhanced exam but favor cysts. There has been interval development of extensive intramuscular hemorrhage within the left psoas, iliopsoas and iliacus muscles as well as partially visualized intramuscular hemorrhage within the left adductor and proximal left thigh musculature. There is moderate associated extraperitoneal/retroperitoneal hemorr quan which extends across the midline. This mildly displaces the left kidney. Bilateral perirenal hemorrhage is present. Old right iliopsoas hematoma is present. There is also hemorrhage within a left inguinal hernia. No acute fractures are identified. Postoperative finding within the spine are unchanged. The prostate is enlarged. IMPRESSION: 1. Interval development of a large amount of intramuscular and retroperitoneal/extraperitoneal hemorrhage since CT of April 11, 2024. This includes intramuscular hemorrhage within the left psoas, iliopsoas, iliacus, left adductor and left thigh musculature, partially imaged on this exam. Associated extraperitoneal and retroperitoneal hemorrhage, including perinephric hemorrhage, as described above. This finding will be called/faxed to the [facility] provider at time of dictation. 2. No hydronephrosis. 3. No bowel obstruction. 4. Old right iliopsoas hematoma with intramuscular calcifications. ACT 112: Negative or not required by law. Electronically signed by: Osiel Gabriel M.D. 05/06/2024 12:32 PM PG Care Time/CCT Total # of Minutes Spent Total Time Spent with Patient: Total time spent is greater than 50% in coordination of care (as documented) at patient's floor/unit and/or counseling patient: Coding Level of Care Code 04744 OP VST NEW MOD 45 MIN Diagnoses Intramuscular hematoma T14.8XXA
[2024-05-06] MEDS: PROTHROMBIN COMP CONC- KCENTRA 3,500 UNITS in SYRINGE 0 ML IV SCH (14:12)
--- NOTE | 2024-05-06 14:15 | Urology Consultation ---
Date of Consultation May 06, 2024 Assessment & Plan (1) Intramuscular hematoma: (2) Hematoma of extraperitoneal space: (3) Retroperitoneal bleed: 83 yo/M admitted for left intramuscular and retroperitoneal/extraperitoneal hemorrhage after fall/found down next to bed. Urology is consulted regarding perinephric hemorrhage Patient afebrile and hemodynamically stable Labs reviewedcreatinine 1.01, WBC 13.72, hemoglobin 10.9, lactate 6.5-->4.8 CT reviewed personally and with Dr. Haywoodit appears that intramuscular/psoas bleed tracks up behind the kidney, but the kidney does not appear to be involved, just adjacent to the issue No acute intervention Defer to Ortho and medicine regarding intramuscular bleed Patient is receiving Vit K and K centra to reverse INR Continue to trend H/H/labs and transfuse as necessary per medicine Continue supportive care medical management per hospital medicine Patient was hospitalized in [place] for gross hematuriawill need f/u with urology as an outpatient will follow History of Present Illness Attending Physician: Dustin Velazquez MD History of Present Illness This is an 83-year-old male with past medical history of type 2 diabetes, CAD status post stent, hypertension, hyperlipidemia, PAF, PE, CVA on chronic warfarin, retroperitoneal bleed, and BPH with history of UTIs presenting to emergency department after being found down next to his bed. Workup in ED included CT abdomen and pelvis without contrast which demonstrated interval development of a large amount of intramuscular and retroperitoneal/extraperitoneal hemorrhage's since CT of 04/11/2024, including intramuscular hemorrhage within the left psoas, iliopsoas, illiacus, left adductor and left thigh musculature; associated extraperitoneal and retrop eritoneal hemorrhage, including perinephric hemorrhage. No hydronephrosis. He is afebrile and hemodynamically stable in ED. Labs showed creatinine 1.01, WBC 13.72, hemoglobin 10.9, INR 4.3, troponin 70.1, lactate 6.5-->4.8. Blood cultures collected and pending. Urinalysis with 1+ protein, 1+ glucose, 1+ ketones, trace LE, 6-10 WBC, >20 epithelial cells, negative for bacteria. ED course included IV fluids, cefepime, vitamin K and Kcentra. Patient seen and examined in the emergency department. He is awake and resting in litter. His friend, Sinan, is present. Patient denies flank pain. He is voiding spontaneously. No hematuria. He reports some discomfort in right hip area. Denies nausea, vomiting, fever or chills. Allergies Allergy/AdvReac Type Severity Reaction Status Date / Time propoxyphene Allergy Intermediate Hallucinati Verified 02/27/24 23:05 ng omeprazole Allergy Unknown Unknown Verified 02/27/24 23:05 ELINOR Inhibitors AdvReac Mild Cough Verified 02/27/24 23:05 gabapentin AdvReac Mild Nausea Verified 02/27/24 23:05 Home Medications Medication Instructions Recorded Confirmed Type cetirizine 10 mg tablet (Zyrtec) 10 mg PO PM 08/14/19 05/06/24 History folic acid 1 mg tablet 1 mg PO QAM 08/14/19 05/06/24 History losartan 50 mg tablet 50 mg PO PM 08/14/19 05/06/24 History metoprolol succinate 25 mg 25 mg PO QAM 08/14/19 05/06/24 History tablet,extended release 24 hr nitroglycerin 0.4 mg sublingual 0.4 mg sublingual UD PRN Chest Pain 08/14/19 05/06/24 History tablet pantoprazole 40 mg tablet,delayed 40 mg PO QAM 08/14/19 05/06/24 History release polyethylene glycol 3350 17 17 g PO DAILY PRN Constipation 08/14/19 05/06/24 History gram/dose oral powder (Miralax) rosuvastatin 20 mg tablet 20 mg PO PM 08/14/19 05/06/24 History cholecalciferol (vitamin D3) 25 25 mcg PO PM 05/22/20 05/06/24 History mcg (1,000 unit) tablet (Vitamin D3) lorazepam 1 mg tablet 0.5 mg PO ONCE HS PRN Insomnia 05/22/20 05/06/24 History ropinirole 0.25 mg tablet 0.25 mg PO HS 03/11/21 05/06/24 History ferrous sulfate 325 mg (65 mg 325 mg PO QPM 12/05/21 05/06/24 History iron) tablet (Iron (ferrous sulfate)) psyllium husk 3.4 gram/5.4 gram 1 tsp PO DAILY PRN Constipation 12/05/21 05/06/24 History oral powder (Metamucil) metformin 1,000 mg tablet 1,000 mg PO BID 04/08/22 05/06/24 History warfarin 2.5 mg tablet 5 mg PO 2XWK 06/21/22 05/06/24 History amlodipine 2.5 mg tablet 2.5 mg PO QAM 01/26/24 05/06/24 History calcipotriene 0.005 % topical cream 1 applic topical .BID UD 01/26/24 05/06/24 History cyanocobalamin (vitamin B-12) 1,000 mcg PO DAILY 01/26/24 05/06/24 History 1,000 mcg tablet (Vitamin B-12) duloxetine 60 mg capsule,delayed 60 mg PO QPM 01/26/24 05/06/24 History release dutasteride 0.5 mg capsule 0.5 mg PO HS 01/26/24 05/06/24 History tamsulosin 0.4 mg capsule 0.4 mg PO DAILY 02/27/24 05/06/24 History warfarin 2.5 mg tablet 2.5 mg PO 5XWK 02/27/24 05/06/24 History acetaminophen 325 mg tablet 650 mg (2 x 325 mg) PO QID PRN 02/29/24 05/06/24 Rx mild pain (scale score 1-4) #0 tabs diclofenac sodium 1 % topical gel 4 g EXT Q8H #0 grams 02/29/24 05/06/24 Rx (Voltaren Arthritis Pain) tramadol 50 mg tablet 25 - 50 mg (0.5 - 1 x 50 mg) PO 02/29/24 05/06/24 Rx Q4H PRN #0 tabs methenamine hippurate 1 gram tablet 1 g PO BID #180 tabs 03/21/24 05/06/24 Rx Patient History Medical History Supratherapeutic INR Hypotension Hematuria Supratherapeutic INR Diabetes mellitus, type 2 On anticoagulant therapy warfarin daily Hard of hearing Peripheral neuropathy bilat legs Restless leg syndrome Urinary retention on occasion, meds help per pt Stroke 2017 > no residual effects > [place] > was in therapy for reading for a while, all better now > doesn't see neuro anymore Myocardial Infarction early 1999' Pancreatic cyst just monitoring PAF (paroxysmal atrial fibrillation) Elevated INR T2DM (type 2 diabetes mellitus) Actinic keratosis History of SCC (squamous cell carcinoma) of skin removed History of basal cell carcinoma removed Chronic urinary tract infection Thoracic aortic aneurysm follows with Dr. Poole with [facility]> last checked around October 2020 > unsure of size Hypertension CVA (cerebral vascular accident) Surgical History History of cardiac cath several > late 1989's early , last one 2007> no stents any time History of tooth extraction History of esophagogastroduodenoscopy (EGD) History of colonoscopy last 12/09/21 @ [facility] History of cataract surgery right Hx of tonsillectomy Family History Father Prostate cancer Diabetes Heart disease Hypertension Other No family history of adverse response to anesthesia Social History Smoking Status: Never smoker Second Hand Exposure: No; Do You Dip or Chew Tobacco: No; Tobacco Cessation Education Requested by Patient: No Hx Alcohol Use: No Hx Substance Use: No Preferred Language: Angolan Communication Ability: Effective Sports Physiotherapist Required: No Beliefs That Will Affect Care: None marital status: Current Living Situation: Spouse and Family Current Living Situation Comment: Lives with and son current occupational status: retired Other Information That Helps Us Care for You: No Feels Safe at Home: Yes Safety Concerns: Feels Safe At This Time Diet: regular Assistive Devices: Cane and Hearing Aid - Bilateral Review of Systems Review of Systems: All systems reviewed & are unremarkable except as noted in HPI & below Physical Exam Constitutional: well developed and well nourished; no acute distress Respiratory: normal respiratory effort; no respiratory distress and no labored breathing Gastrointestinal (Abdomen): Inspection/Auscultation: abdomen normal to inspection Musculoskeletal: Head/Neck/Chest: normocephalic Neurologic: moves all extremities and awake Psychiatric: Orientation: alert and oriented x 3 Genitourinary: No bruising or tenderness to palpation over bilateral flanks Results & Data Vital Signs (Past 12 Hours) Vital Signs Temp Pulse Pulse Pulse Resp BP BP 05/06/24 12:21 36.4 C L 87 23 152/88 H 05/06/24 11:37 76 17 159/88 H 05/06/24 11:12 79 19 159/88 H 05/06/24 10:51 83 17 05/06/24 08:39 88 19 05/06/24 08:30 115/62 05/06/24 08:24 87 23 05/06/24 08:15 83 05/06/24 07:37 80 20 05/06/24 07:35 36.6 C 80 20 121/80 05/06/24 07:35 36.6 C 82 20 119/81 05/06/24 07:35 36.6 C 82 20 05/06/24 07:14 Pulse Ox O2 Del Method 05/06/24 12:21 97 Room Air 05/06/24 11:37 95 Room Air 05/06/24 11:12 98 05/06/24 10:51 97 05/06/24 08:39 97 05/06/24 08:30 05/06/24 08:24 94 05/06/24 08:15 05/06/24 07:37 95 Room Air 05/06/24 07:35 94 Room Air 05/06/24 07:35 94 Room Air 05/06/24 07:35 94 Room Air 05/06/24 07:14 94 Room Air Diagnostic Findings CT OF THE ABDOMEN AND PELVIS WITHOUT CONTRAST CLINICAL HISTORY: pain, recent R iliopsoas hematoma COMPARISON STUDY: CT of the abdomen and pelvis April 11, 2024. TECHNIQUE: Axial images of the abdomen and pelvis were obtained without IV contrast. Images were reviewed in the axial, sagittal, and coronal planes. Automated exposure control was utilized for the study. A dose lowering technique was utilized adhering to the principles of ALARA. FINDINGS: There are trace bilateral pleural effusions. Dilatation of visualized portions of the ascending aorta measuring up to 5.1 cm is again noted. There is extensive coronary artery calcification. The heart is mildly enlarged. There are gallstones within the gallbladder are present. Unenhanced images of the liver, spleen, adrenal glands and pancreas are unremarkable. There is no hydronephrosi s. There is mild bladder wall thickening. Water attenuation left renal lesions are suboptimally assessed on this unenhanced exam but favor cysts. There has been interval development of extensive intramuscular hemorrhage within the left psoas, iliopsoas and iliacus muscles as well as partially visualized intramuscular hemorrhage within the left adductor and proximal left thigh musculature. There is moderate associated extraperitoneal/retroperitoneal hemorrhage which extends across the midline. This mildly displaces the left kidney. Bilateral perirenal hemorrhage is present. Old right iliopsoas hematoma is present. There is also hemorrhage within a left inguinal hernia. No acute fractures are identified. Postoperative finding within the spine are unchanged. The prostate is enlarged. IMPRESSION: 1. Interval development of a large amount of intramuscular and retroperitoneal/extraperitoneal hemorrhage since CT of April 11, 2024. This includes intramuscular hemorrhage within the left psoas, iliopsoas, iliacus, left adductor and left thigh musculature, partially imaged on this exam. Associated extraperitoneal and retroperitoneal hemorrhage, including perinephric hemorrhage, as described above. This finding will be called/faxed to the ordering provider at time of dictation. 2. No hydronephrosis. 3. No bowel obstruction. 4. Old right iliopsoas hematoma with intramuscular calcifications. PG Care Time/CCT Total # of Minutes Spent Total Time Spent with Patient: Total time spent is greater than 50% in coordination of care (as documented) at patient's floor/unit and/or counseling patient: Coding Level of Care Code 57031 INT INP/OBS CARE 2/55MIN Diagnoses Intramuscular hematoma T14.8XXA Hematoma of extraperitoneal space K68.3 Retroperitoneal bleed R58
[2024-05-06 14:49] LABS: Hematocrit (blood only) 27.9 % (42.0-52.0)
--- NOTE | 2024-05-06 16:20 | Ultrasound Report ---
US carotid doppler BI CLINICAL HISTORY: 83 years-old Male with syncope. COMPARISON: 11/09/2018 TECHNIQUE: Multiple real time sonographic images of the carotid bifurcations were obtained assessing espinoza scale, color Doppler and spectral wave form appearance FINDINGS: RIGHT CAROTID: The peak systolic velocity measured in the right ICA is 51 cm/sec. The end diastolic velocity measured 19 cm/sec. The ICA to CCA ratio measured 0.67 which correlates with a stenosis of 0-50%. [id number] atherosclerosis. LEFT CAROTID: The peak systolic velocity measured in the left ICA is 55 cm/sec. The end diastolic v elocity measured 19 cm/sec. The ICA to CCA ratio measured 1.0 which correlates with a stenosis of 0-5 0%. [id number] atherosclerosis. There is normal antegrade vertebral flow bilaterally. IMPRESSION: 1. Atherosclerosis without hemodynamically significant stenosis. 2. Normal antegrade vertebral flow bilaterally. ACT 112: Negative or not required by law. The above report was generated using voice recognition software. It may contain grammatical, syntax o r spelling errors. Electronically signed by: Juan Drake M.D. 05/06/2024 4:19 PM
[2024-05-06 17:17] LABS: Adenovirus PCR Not Detected (NotDetected); Bordetella parapertussis PCR Not Detected (NotDetected); Bordetella pertussis PCR Not Detected (NotDetected); Chlamydia pneumoniae PCR Not Detected (NotDetected); Coronavirus 229E PCR Not Detected (NotDetected); Coronavirus CoV-2 (COVID19)PCR DETECTED (NotDetected); Coronavirus HKU1 PCR Not Detected (NotDetected); Coronavirus NL63 PCR Not Detected (NotDetected); Coronavirus OC43PCR Not Detected (NotDetected); Human Metapneumovirus PCR Not Detected (NotDetected); Influenza A PCR Not Detected (NotDetected); Influenza B PCR Not Detected (NotDetected); Mycoplasma pneumoniae PCR Not Detected (NotDetected); Parainfluenza Virus 1 PCR Not Detected (NotDetected); Parainfluenza Virus 2 PCR Not Detected (NotDetected); Parainfluenza Virus 3 PCR Not Detected (NotDetected); Parainfluenza Virus 4 PCR Not Detected (NotDetected); Respiratory Syncytial VirusPCR Not Detected (NotDetected); Rhinovirus/Enterovirus PCR Not Detected (NotDetected)
[2024-05-06] MEDS: CEFEPIME 2000MG 2,000 MG/20 ML SYR IV SCH (19:21)
[2024-05-06 20:19] LABS: Hematocrit (blood only) 26.1 % (42.0-52.0); Hemoglobin 8.6 g/dl (14.0-18.0)
[2024-05-06] MEDS: FINASTERIDE 5 MG TAB PO SCH (20:36)
[2024-05-06] MEDS: MAGNESIUM OXIDE 400 MG TAB PO SCH (20:36)
[2024-05-06] MEDS: CHOLECALCIFEROL 25 MCG (1000 UNITS) TAB PO SCH (20:36)
[2024-05-06] MEDS: FERROUS SULFATE 325 MG TAB PO SCH (20:37)
[2024-05-06] MEDS: DULoxetine HCL 60 MG CAP PO SCH (20:37)
[2024-05-06] MEDS: CETIRIZINE HCL 10 MG TABLET PO SCH (20:37)
[2024-05-06] MEDS: LANTUS PER UNIT CHARGE SQ SCH (20:38)
[2024-05-06] MEDS: METHENAMINE HIPPURATE 1 GM TAB PO SCH (20:39)
[2024-05-06] MEDS: rOPINIRole HCL 0.25 MG TABLET PO SCH (20:39)
[2024-05-06 20:48] LABS: INR 1.1 (0.9-1.1); Prothrombin Time 11.6 Seconds (9.0-12.0)
[2024-05-07 01:14] LABS: Basophils # (auto) 0.02 K/uL (0.00-0.20); Basophils % (auto) 0.2 %; Eosinophils # (auto) 0.03 K/uL (0.00-0.50); Eosinophils % (auto) 0.3 %; Hematocrit (blood only) 24.7 % (42.0-52.0); Immature Granulocytes # (auto) 0.03 K/uL (0.01-0.20); Immature Granulocytes % (auto) 0.3 %; Lymphocytes % (auto) 9.5 %; Mean Corpuscular Hgb Conc 32.4 g/dL (32.0-36.0); Mean Corpuscular Volume 92.5 fL (80.0-100.0); Monocytes # (auto) 0.88 K/uL (0.11-0.59); Monocytes % (auto) 8.3 %; Neutrophils # (auto) 8.58 K/uL (1.40-6.50); Neutrophils % (auto) 81.4 %; Platelet Count 152 K/uL (130-400); RDW Coefficient of Variation 15.1 % (11.5-14.5); RDW Standard Deviation 50.9 fL (36.4-46.3); Red Blood Count 2.67 M/uL (4.70-6.10); White Blood Count 10.54 K/ul (4.8-10.8)
--- NOTE | 2024-05-07 09:04 | Surgery Progress Note ---
Date of Service May 07, 2024 Assessment & Plan (1) Intramuscular hematoma: Plan: Patient here with large intramuscular hematoma and retro and extra peritoneal spaces Vitals remain stable Hbg downtrending to 8 from 10.9 on admission. INR reversed 1.1 (4.3) Abdominal pain remains present in LLQ and now extending into groin regions. Reporting + L thigh pain No ecchymosis or skin changes noted in abdomen/back/flanks. Some small amount of bruising now noted on anterior L thigh. no specific area's of swelling noted Will leave up to medicine on guidelines for transfusion in patient with hbg of 8 Continue to trend hbg to ensure stability now that INR reversed Will discuss with attending but could consider repeat imaging to evaluate for any active bleeding If any issues pt will likely require tsfer to tertiary center with IR capabilities for embolization as above. pt seen. having some pelvic pain ( expected). has good peripheral pulses and feet are warm INR corrected. monitor H/H. if evidence of on going bleeding will need transfer for IR. no tobar rgery indicated. please call if any questions/concerns Admission and Anticipated Discharge Date Admission Date: May 06, 2024 Subjective Patient reports some pain in his abdomen, similar to yesterday in LLQ region but now extending into his groins. His R leg was uncomfortable for him yesterday, but now he reports some new L thigh discomfort. Otherwise no CP/SOB, no lightheadedness, or dizziness. No nausea/vomiting. No issues with voiding. No back/flank pain. Physical Exam Physical Exam: awake and appears more alert than yesterday Gastrointestinal (Abdomen): Inspection/Auscultation: abdomen not distended Percussion/Palpation: + abdomen tender (mild discomfort in LLQ and bilateral groin) and abdomen soft Musculoskeletal: some discomfort to palpation around L thigh. small amount of bruising noted on anterior L thigh. No other area's of bruising/swelling noted. No bilateral flank or back pain or ecchymosis noted Results & Data Vital Signs (Past 12 Hours) Vital Signs Temp Pulse Pulse Resp BP Pulse Ox O2 Del Method 05/07/24 07:44 97.9 F 76 18 109/61 95 Room Air 05/07/24 03:18 97.9 F 92 H 16 116/77 96 Room Air 05/06/24 23:31 97.9 F 94 H 16 117/70 94 Room Air 05/06/24 21:58 81 PG Care Time/CCT Total # of Minutes Spent Total Time Spent with Patient: Total time spent is greater than 50% in coordination of care (as documented) at patient's floor/unit and/or counseling patient: Coding Level of Care Code 36059 SUB INP/OBS CARE 08/09MIN Diagnoses Intramuscular hematoma T14.8XXA
--- NOTE | 2024-05-07 09:19 | Urology Progress Note ---
Date of Service May 07, 2024 Assessment & Plan (1) Intramuscular hematoma: (2) Hematoma of extraperitoneal space: (3) Retroperitoneal bleed: Plan: 83 yo/M admitted for left intramuscular and retroperitoneal/extraperitoneal hemorrhage after fall/found down next to bed. Patient afebrile, vitals stable Labs reviewedWBC 10.54, Hgb 8.0 (10.9 on arrival), INR reversed (1.1) Intramuscular bleed appears to track up to kidney, but kidney does not appear to be involved No acute intervention Continue to trend H/H/labs and transfuse as necessary per medicine Continue supportive care and medical management per hospital medicine Defer to med/ortho/gen surg regarding intramuscular bleed He is voiding spontaneously, no hematuria Patient was hospitalized in [place] for gross hematuriawill need f/u with urology as an outpatient will sign off Admission and Anticipated Discharge Date Admission Date: May 06, 2024 Subjective Patient seen and examined at bedside this morning. He reports some mild discomfort in his left lower abdomen as well as left thigh discomfort and bilateral inguinal area. Voiding without difficulty, no hematuria. No flank or back pain. No nausea or vomiting. Review of Systems Constitutional: as per Subjective / HPI Genitourinary: + as per Subjective / HPI Physical Exam Constitutional: no acute distress Respiratory: normal respiratory effort; no respiratory distress and no labored breathing Gastrointestinal (Abdomen): Inspection/Auscultation: abdomen normal to inspection Percussion/Palpation: + abdomen tender (mild tenderness at left lower quadrant) and abdomen soft Musculoskeletal: Head/Neck/Chest: normocephalic Mild tenderness to palpation of left anterior upper thigh, small ecchymosis noted just below left inguinal fold Neurologic: moves all extremities and awake Psychiatric: Orientation: alert and oriented x 3 Genitourinary: No ecchymosis or tenderness to palpation over bilateral flanks Results & Data Vital Signs (Past 12 Hours) Vital Signs Temp Pulse Pulse Resp BP Pulse Ox O2 Del Method 05/07/24 07:44 36.6 C 76 18 109/61 95 Room Air 05/07/24 03:18 36.6 C 92 H 16 116/77 96 Room Air 05/06/24 23:31 36.6 C 94 H 16 117/70 94 Room Air 05/06/24 21:58 81 PG Care Time/CCT Total # of Minutes Spent Total Time Spent with Patient: Total time spent is greater than 50% in coordination of care (as documented) at patient's floor/unit and/or counseling patient: Coding Level of Care Code 26868 SUB INP/OBS CARE 08/09MIN Diagnoses Intramuscular hematoma T14.8XXA Hematoma of extraperitoneal space K68.3 Retroperitoneal bleed R58
[2024-05-07 09:30] LABS: Hematocrit (blood only) 24.8 % (42.0-52.0)
[2024-05-07] MEDS: ADVANCED PROBIOTIC 625 MG CAPSULE PO SCH (09:35)
[2024-05-07] MEDS: FOLIC ACID 1 MG TAB PO SCH (09:36)
[2024-05-07] MEDS: TAMSULOSIN HCL 0.4 MG CAP PO SCH (09:36)
[2024-05-07] MEDS: PANTOprazole 40 MG TAB PO SCH (09:36)
[2024-05-07] MEDS: CYANOCOBALAMIN (B-12) 500 MCG TABLET PO SCH (09:36)
[2024-05-07 09:46] LABS: Albumin Globulin Ratio 2.1 (0.9-2); Albumin Level 3.3 gm/dl (3.4-5.0); BUN Creatinine Ratio 37.3 (10-20); Bilirubin,Total 0.9 mg/dl (0.2-1.0); Calcium 8.1 mg/dl (8.6-10.3); Creatinine Clr Calc Pharmacy 91.5 ml/min; Globulin 1.6 gm/dl (2.5-4.0); Magnesium 1.8 mg/dl (1.7-2.4); Potassium 3.6 mmol/L (3.5-5.1); Total Protein 4.9 gm/dl (6.0-8.3)
[2024-05-07 09:54] LABS: Prothrombin Time 10.7 Seconds (9.0-12.0); Troponin I High Sensitivity 649.5 pg/ml (0-20)
[2024-05-07 10:43] LABS: Estimated Average Glucose 120 mg/dl; Hemoglobin A1C 5.8 % (4.5-5.6)
--- NOTE | 2024-05-07 12:15 | Hospitalist Progress Note ---
Date of Service May 07, 2024 Assessment & Plan (1) Syncope and collapse: (2) Hematoma of iliopsoas muscle: (3) Retroperitoneal bleed: (4) Hematoma of extraperitoneal space: Plan 83-year-old male past medical history significant for CAD status post stent, HTN, HLD, history of PAF/PE/recurrent cryptogenic stroke on chronic Coumadin, history of retroperitoneal bleed, PVD with a history of thoracic aortic aneurysm, ABDULLAHI on CPAP at night, BPH with chronic UTI, non -insulin-dependent diabetic who presents to ED after being found down next to his bed. Syncope Lactic acidosis Unwitnessed fall Possible Sepsis Patient was found on floor next to bed covered in dried feces all over and confused Pt was treated in ED for suspected sepsis, possible metabolic encephalopathy given significant lactic acidosis and mild leukocytosis He will have received 3L of IVF in ED along with mag and calcium IV Lactic acid 6.5 --> 4.8-->2.1 Infectious workup negative so far CT head did not show acute abnormalities Carotid USS showed atherosclerosis without hemodynamically significant stenosis Based on available results, unlikely sepsis Lactic acidosis likely due to ischemia in background home metformin Will stop cefepime for now and monitor Will get PT/OT eventually Retroperitoneal hemorrhage Acute on Chronic normocytic Anemia Supratherapeutic INR History of Retroperitoneal Bleed c/b R iliopsoas Hematoma History of recurrent CVA/cryptogenic CVA History of PE CT Abdomen and pelvis: Interval development of a large amount of intramuscular and retroperitoneal/extraperitoneal hemorrhage since CT of April 11, 2024. This includes intramuscular hemorrhage within the left psoas, iliopsoas, iliacus, left adductor and left thigh musculature, partially imaged on this exam. Associated extraperitoneal and retroperitoneal hemorrhage, including perinephric hemorrhage, INR on admission was 4.[address] discussed with Dr. Osman who recommended reversal with IV Vit K and Kcentra Type and cross, place 4 units on hold INR today is 1.0 Gen surg and Urology eval noted Hb downtrended from previous admission 13-14 --> 10.9 on admission Down to 8s now Continue to monitor Hb q6h Considering recurrent retroperitoneal hemorrhage, will have to consider holding off anticoagulation retirement Patient will need follow up with Hematology for this considering his thrombotic as well as bleeding risk Elevated troponin Hypertension History of CAD status post stent Continue to hold losartan and amlodipine for now given bp on softer side Continue metoprolol Echo on 05/06/24 showed no significant change, mod conc LVH, septal motion consistent with conduction abnormality, mod size infe and post WMA with hypokinesis of segments. 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 Prn pain meds DM2 on oral medications A1C 6.0% on admission Lantus/SSI inpatient ABDULLAHI: Cpap at HS DVT ppx: hold warfarin as above FULL CODE PCP: Abby I spent a total of 60 minutes coordinating, documenting and providing care for this patient excluding time spent in performance of separately billed services Admission and Anticipated Discharge Date Admission Date: May 06, 2024 Subjective Patient seen and examined Reports generalized weakness Reports bilateral groin pain with movement Denied dizziness, chest pain, cough, SOB, nausea, vomiting, dysuria, freq, urgency No BM since admission yesterday Physical Exam Constitutional: + well hydrated; no acute distress Eyes: PERRL, conjunctivae normal, anicteric sclerae ENMT: Some hearing deficits Respiratory: normal respiratory effort, lungs clear to auscultation Cardiovascular: Rate/Rhythm: regular rate and regular rhythm Gastrointestinal (Abdomen): normal bowel sounds, soft, nontender, no hepatosplenomegaly Musculoskeletal: No pedal edema Neurologic: PERRL, EOMI, accommodation nl, no face palsy, no dysarthria Psychiatric: A+Ox3, euthymic affect Results & Data Results & Data Vital Signs (Past 12 Hours) Vital Signs Temp Pulse Pulse Resp BP Pulse Ox O2 Del Method 05/07/24 11:37 36.4 C L 82 21 150/75 H 97 Room Air 05/07/24 11:10 75 05/07/24 07:44 36.6 C 76 18 109/61 95 Room Air 05/07/24 03:18 36.6 C 92 H 16 116/77 96 Room Air Laboratory Results Abnormal lab results 05/06/24 05/06/24 05/06/24 Range/Units 13:36 14:20 16:02 RBC (4.70-6.10) M/uL Hgb 9.0 L (14.0-18.0) g/dl Hct 27.9 L (42.0-52.0) % RDW Std Deviation (36.4-46.3) fL RDW Coeff of Argelia (11.5-14.5) % Neut # (Auto) (1.40-6.50) K/uL Lymph # (Auto) (1.20-3.40) K/uL Mitchell # (Auto) (0.11-0.59) K/uL Chloride (98-107) mmol/L BUN (6-23) mg/dl BUN/Creatinine Ratio (10-20) Glucose (70-99(Fasting)) mg/dl POC Glucose 128 H (70-99) mg/dl Hemoglobin A1c (4.5-5.6) % Lactate 2.3 H* 2.1 H* (0.4-2.0) mmol/L Calcium (8.6-10.3) mg/dl Total Creatine Kinase (30-223) U/L Troponin I High Sens (0-20) pg/ml Total Protein (6.0-8.3) gm/dl Albumin (3.4-5.0) gm/dl Globulin (2.5-4.0) gm/dl Albumin/Globulin Ratio (0.9-2) SARS-CoV-2 (PCR) (NotDetected) Crossmatch See Detail 05/06/24 05/06/24 05/06/24 Range/Units 16:03 16:20 20:06 RBC (4.70-6.10) M/uL Hgb 8.6 L (14.0-18.0) g/dl Hct 26.1 L (42.0-52.0) % RDW Std Deviation (36.4-46.3) fL RDW Coeff of Argelia (11.5-14.5) % Neut # (Auto) (1.40-6.50) K/uL Lymph # (Auto) (1.20-3.40) K/uL Mitchell # (Auto) (0.11-0.59) K/uL Chloride (98-107) mmol/L BUN (6-23) mg/dl BUN/Creatinine Ratio (10-20) Glucose (70-99(Fasting)) mg/dl POC Glucose 108 H (70-99) mg/dl Hemoglobin A1c (4.5-5.6) % Lactate (0.4-2.0) mmol/L Calcium (8.6-10.3) mg/dl Total Creatine Kinase (30-223) U/L Troponin I High Sens 68.0 H* (0-20) pg/ml Total Protein (6.0-8.3) gm/dl Albumin (3.4-5.0) gm/dl Globulin (2.5-4.0) gm/dl Albumin/Globulin Ratio (0.9-2) SARS-CoV-2 (PCR) DETECTED A (NotDetected) Crossmatch 05/06/24 05/07/24 05/07/24 Range/Units 20:08 01:01 07:43 RBC 2.67 L (4.70-6.10) M/uL Hgb 8.0 L (14.0-18.0) g/dl Hct 24.7 L (42.0-52.0) % RDW Std Deviation 50.9 H (36.4-46.3) fL RDW Coeff of Argelia 15.1 H (11.5-14.5) % Neut # (Auto) 8.58 H (1.40-6.50) K/uL Lymph # (Auto) 1.00 L (1.20-3.40) K/uL Mitchell # (Auto) 0.88 H (0.11-0.59) K/uL Chloride (98-107) mmol/L BUN (6-23) mg/dl BUN/Creatinine Ratio (10-20) Glucose (70-99(Fasting)) mg/dl POC Glucose 117 H 103 H (70-99) mg/dl Hemoglobin A1c (4.5-5.6) % Lactate (0.4-2.0) mmol/L Calcium (8.6-10.3) mg/dl Total Creatine Kinase (30-223) U/L Troponin I High Sens (0-20) pg/ml Total Protein (6.0-8.3) gm/dl Albumin (3.4-5.0) gm/dl Globulin (2.5-4.0) gm/dl Albumin/Globulin Ratio (0.9-2) SARS-CoV-2 (PCR) (NotDetected) Crossmatch 05/07/24 05/07/24 Range/Units 08:52 11:25 RBC (4.70-6.10) M/uL Hgb 8.0 L (14.0-18.0) g/dl Hct 24.8 L (42.0-52.0) % RDW Std Deviation (36.4-46.3) fL RDW Coeff of Argelia (11.5-14.5) % Neut # (Auto) (1.40-6.50) K/uL Lymph # (Auto) (1.20-3.40) K/uL Mitchell # (Auto) (0.11-0.59) K/uL Chloride 108 H (98-107) mmol/L BUN 28 H (6-23) mg/dl BUN/Creatinine Ratio 37.3 H (10-20) Glucose 124 H (70-99(Fasting)) mg/dl POC Glucose 114 H (70-99) mg/dl Hemoglobin A1c 5.8 H (4.5-5.6) % Lactate (0.4-2.0) mmol/L Calcium 8.1 L (8.6-10.3) mg/dl Total Creatine Kinase 471 H (30-223) U/L Troponin I High Sens 649.5 H* D (0-20) pg/ml Total Protein 4.9 L (6.0-8.3) gm/dl Albumin 3.3 L (3.4-5.0) gm/dl Globulin 1.6 L (2.5-4.0) gm/dl Albumin/Globulin Ratio 2.1 H (0.9-2) SARS-CoV-2 (PCR) (NotDetected) Crossmatch
--- NOTE | 2024-05-07 12:17 | Cardiology Consultation ---
Date of Consultation May 07, 2024 Assessment & Plan (1) Syncope and collapse: (2) Retroperitoneal hematoma: (3) Hematoma of extraperitoneal space: (4) ASCVD (arteriosclerotic cardiovascular disease): (5) Ascending aortic aneurysm: (6) History of pulmonary embolism: (7) Recurrent strokes: Plan Complex 83 year old male readmitted to [facility] after experiencing an undefined syncope episode. Imaging with a large amount of intramuscular, retroperitoneal, perinephric hemorrhage and extraperitoneal hemorrhage within the left psoas, iliopsoas, iliacus, left abductor, left thigh musculature. INR on admission was 4.3, reversed with IV vitamin K and Kcentra. Patient with known aortic root and ascending thoracic aortic aneurysm; imaging not suggestive of aortic dissection/involvement. Patient asymptomatic in regarding to overt angina symptoms. Elevated troponin likely represents demand ischemia, exacerbated by acute on chronic anemia in the setting of known multivessel coronary artery disease by remote testing. Resting echocardiography unchanged compared to prior. LV function preserved. Recommend continuing medical management of the patient's underlying coronary artery disease. Continue telemetry monitoring while an inpatient. ZIO monitor to be arranged on discharge unless significant arrhythmias observed on inpatient evaluation. Long-term anticoagulation use to be determined. Need for long-term placement discussed. Supervising Physician Co-Signing Physician Notes Patient seen and personally examined. Assessment and plan as outlined above. Care and management discussed personally with advanced provider and endorsed. Complex 83-year-old male with known coronary artery disease including chronic right coronary artery occlusion, aortic root and ascending aortic aneurysm. Chronically anticoagulated with warfarin due to prior DVT pulmonary embolus in remote past as well as multiple recurrent strokes in 2018 while on antiplatelet therapy. Paroxysmal atrial fibrillation previously observed. No recent arrhythmia Now second admission with retroperitoneal hemorrhage in association with supratherapeutic INR question secondary to injury versus precipitating fall Patient notes acute fall with little recollection after eventl. Does not admit to acute syncope but not excluded Anticoagulation now reversed Laboratory studies notable for elevation in troponin. Echocardiogram with similar wall motion abnormalities involving inferior posterior wall in comparison to prior studies. EKGs without acute change. Troponin elevation as noted likely secondary to acute blood loss anemia, stressors of illness and acidosis. No complaints of chest pain or discomfort. Currently notes marked weakness on standing but no other focal complaint Anticoagulation appropriately remains on hold Recurrent retroperitoneal bleed contraindication to ongoing anticoagulation. May need to consider Watchman procedure Consider Linq insertion assess for occult arrhythmias given fall and past paro xysmal atrial arrhythmias Losartan and amlodipine held on presentation Will resume amlodipine this evening Plan as above continue management of chronic ischemic heart disease with prehospital medications including metoprolol succinate, rosuvastatin History of Present Illness Reason for Consultation: Elevated trop 600s, demand ischemia, bleeding Requesting Physician: Dr. Andressa Barclay MD Attending Physician: Dr. Andressa Barclay MD History of Present Illness Mr. Arnulfo Morfin is a complex 83-year-old male who presented to [facility] via EMS on May 06, 2024 after being found on the floor in the bedroom confused and covered in feces. Patient recalls being outside yesterday for little bit and then going back into the house to watch some television. After watching television for an unknown period of time the patient walked upstairs to the bedroom. He recalls walking into the bedroom and then experiencing a syncopal episode without warning. Patient eventually found by his son who summoned EMS. In the ER patient received 3 L of IV fluid resuscitation along with magnesium and calcium. Imaging revealed a large amount of intramuscular, retroperitoneal, perinephric hemorrhage and extraperitoneal hemorrhage within the left psoas, iliopsoas, iliacus, left abductor, left thigh musculature. INR on admission was 4.3, reversed with IV vitamin K and Kcentra. Patient hospitalized in January, presenting at that time with spontaneous right thigh and retroperitoneal hematoma in the setting of supratherapeutic INR (5.5) following antibiotic treatment for UTI, in February with hip pain post fall, and in March with a complicated UTI, gross hematuria. Patient high risk for recurrent VTE/cryptogenic CVA Cardiology consultation requested secondary to elevated troponin. EKG with anterolateral STT wave abnormality. Resting echocardiography on May 06, 2024 without significant change compared to prior, revealing preserved LV systolic function, moderate sized inferior and posterior wall motion abnormality, moderate LVH. Patient without overt angina symptoms. Problem list: 1. Atherosclerotic coronary disease with prior remote coronary interventions to the right coronary. Last cardiac catheterization in 03/2004 with in-stent restenosis of the RCA with antegrade collateral flow, a 30% ostial left main, 30% circumflex and 40% stenosis of the second diagonal. 2. Class II angina pectoris. 3. Dilated aortic root and thoracic aorta 4. History of past pulmonary embolus. 5. Obstructive sleep apnea. 6. Labile hypertension. 7. Hyperlipidemia. 8. Occipital stroke in October 2017. 9. 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 10. Paroxysmal atrial fibrillation, on chronic anticoagulation 11. Chronic back pain. 12. Chronic urinary retention, intermittent straight catheterization Family History: Mother with breast cancer. Father with an AK at 65 and Alzheimer's disease. Brother with CABG at 54. Social History: Nonsmoker. Chronic alcohol use. No illegal drug use. , [place]. 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 Two grown children. Son lives with them. Allergies Allergy/AdvReac Type Severity Reaction Status Date / Time propoxyphene Allergy Intermediate Hallucinati Verified 02/27/24 23:05 ng omeprazole Allergy Unknown Unknown Verified 02/27/24 23:05 ELINOR Inhibitors AdvReac Mild Cough Verified 02/27/24 23:05 gabapentin AdvReac Mild Nausea Verified 02/27/24 23:05 Home Medications Medication Instructions Recorded Confirmed Type cetirizine 10 mg tablet (Zyrtec) 10 mg PO PM 08/14/19 05/06/24 History folic acid 1 mg tablet 1 mg PO QAM 08/14/19 05/06/24 History losartan 50 mg tablet 50 mg PO PM 08/14/19 05/06/24 History metoprolol succinate 25 mg 25 mg PO QAM 08/14/19 05/06/24 History tablet,extended release 24 hr nitroglycerin 0.4 mg sublingual 0.4 mg sublingual UD PRN Chest Pain 08/14/19 05/06/24 History tablet pantoprazole 40 mg tablet,delayed 40 mg PO QAM 08/14/19 05/06/24 History release polyethylene glycol 3350 17 17 g PO DAILY PRN Constipation 08/14/19 05/06/24 History gram/dose oral powder (Miralax) rosuvastatin 20 mg tablet 20 mg PO PM 08/14/19 05/06/24 History cholecalciferol (vitamin D3) 25 25 mcg PO PM 05/22/20 05/06/24 History mcg (1,000 unit) tablet (Vitamin D3) lorazepam 1 mg tablet 0.5 mg PO ONCE HS PRN Insomnia 05/22/20 05/06/24 History ropinirole 0.25 mg tablet 0.25 mg PO HS 03/11/21 05/06/24 History ferrous sulfate 325 mg (65 mg 325 mg PO QPM 12/05/21 05/06/24 History iron) tablet (Iron (ferrous sulfate)) psyllium husk 3.4 gram/5.4 gram 1 tsp PO DAILY PRN Constipation 12/05/21 05/06/24 History oral powder (Metamucil) metformin 1,000 mg tablet 1,000 mg PO BID 04/08/22 05/06/24 History warfarin 2.5 mg tablet 5 mg PO 2XWK 06/21/22 05/06/24 History amlodipine 2.5 mg tablet 2.5 mg PO QAM 01/26/24 05/06/24 History calcipotriene 0.005 % topical cream 1 applic topical .BID UD 01/26/24 05/06/24 History cyanocobalamin (vitamin B-12) 1,000 mcg PO DAILY 01/26/24 05/06/24 History 1,000 mcg tablet (Vitamin B-12) duloxetine 60 mg capsule,delayed 60 mg PO QPM 01/26/24 05/06/24 History release dutasteride 0.5 mg capsule 0.5 mg PO HS 01/26/24 05/06/24 History tamsulosin 0.4 mg capsule 0.4 mg PO DAILY 02/27/24 05/06/24 History warfarin 2.5 mg tablet 2.5 mg PO 5XWK 02/27/24 05/06/24 History acetaminophen 325 mg tablet 650 mg (2 x 325 mg) PO QID PRN 02/29/24 05/06/24 Rx mild pain (scale score 1-4) #0 tabs diclofenac sodium 1 % topical gel 4 g EXT Q8H #0 grams 02/29/24 05/06/24 Rx (Voltaren Arthritis Pain) tramadol 50 mg tablet 25 - 50 mg (0.5 - 1 x 50 mg) PO 02/29/24 05/06/24 Rx Q4H PRN #0 tabs methenamine hippurate 1 gram tablet 1 g PO BID #180 tabs 03/21/24 05/06/24 Rx Patient History Medical History Supratherapeutic INR Hypotension Hematuria Supratherapeutic INR Diabetes mellitus, type 2 On anticoagulant therapy warfarin daily Hard of hearing Peripheral neuropathy bilat legs Restless leg syndrome Urinary retention on occasion, meds help per pt Stroke 2018 > no residual effects > [facility] > was in therapy for reading for a while, all better now > doesn't see neuro anymore Myocardial Infarction early Pancreatic cyst just monitoring PAF (paroxysmal atrial fibrillation) Elevated INR T2DM (type 2 diabetes mellitus) Actinic keratosis History of SCC (squamous cell carcinoma) of skin removed History of basal cell carcinoma removed Chronic urinary tract infection Thoracic aortic aneurysm follows with Dr. Poole with [facility]> last checked around October 2020 > unsure of size Hypertension CVA (cerebral vascular accident) Surgical History History of cardiac cath several > late 1989's early , last one 2007> no stents any time History of tooth extraction History of esophagogastroduodenoscopy (EGD) History of colonoscopy last 12/09/21 @ [facility] History of cataract surgery right Hx of tonsillectomy Family History Father Prostate cancer Diabetes Heart disease Hypertension Other No family history of adverse response to anesthesia Social History Smoking Status: Never smoker Second Hand Exposure: No; Do You Dip or Chew Tobacco: No; Hx Alcohol Use: No Hx Substance Use: No Preferred Language: Northern Irish Communication Ability: Effective Screwhead Polisher Required: No Beliefs That Will Affect Care: None marital status: Current Living Situation: Spouse and Family Current Living Situation Comment: Lives with and son current occupational status: retired Feels Safe at Home: Yes Diet: regular Assistive Devices: Cane, CPAP and Walker Review of Systems Review of Systems: Complete Review of Systems is as stated above, negative, or noncontributory. Physical Exam Physical Exam: General: A&Ox3. NAD. HENT: Normocephalic. Atraumatic. Eyes: PER. Conjunctiva pink, sclera clear. Neck: Carotid bruits. No JVD. Heart: Regular at 90 bpm. No murmur. No rub. Lungs: Clear to auscultation. Abdomen: +BS. Soft. Nontender. No masses or organomegaly. Extremities: No clubbing, cyanosis, or edema. Limited neurological examination is without focal deficits. Pulses: radial=2/4, posterior tibial=2/4 on the left and 1-2/4 on the right. Results & Data Vital Signs (Past 12 Hours) Vital Signs Temp Pulse Pulse Resp BP Pulse Ox O2 Del Method 05/07/24 11:37 36.4 C L 82 21 150/75 H 97 Room Air 05/07/24 11:10 75 05/07/24 07:44 36.6 C 76 18 109/61 95 Room Air 05/07/24 03:18 36.6 C 92 H 16 116/77 96 Room Air Laboratory Results Cardiac Enzymes 05/06/24 05/07/24 Range/Units 20:06 08:52 AST 25 (13-39) U/L Troponin I High Sens 68.0 H* 649.5 H* D (0-20) pg/ml Coagulation 05/06/24 05/07/24 Range/Units 20:06 08:52 PT 11.6 10.7 (9.0-12.0) Seconds CBC 05/06/24 05/06/24 05/07/24 Range/Units 14:20 20:06 01:01 WBC 10.54 (4.8-10.8) K/ul RBC 2.67 L (4.70-6.10) M/uL Hgb 9.0 L 8.6 L 8.0 L (14.0-18.0) g/dl Hct 27.9 L 26.1 L 24.7 L (42.0-52.0) % Plt Count 152 (130-400) K/uL Neut # (Auto) 8.58 H (1.40-6.50) K/uL Lymph # (Auto) 1.00 L (1.20-3.40) K/uL Hendricks # (Auto) 0.88 H (0.11-0.59) K/uL Eos # (Auto) 0.03 (0.00-0.50) K/uL Baso # (Auto) 0.02 (0.00-0.20) K/uL 05/07/24 Range/Units 08:52 WBC (4.8-10.8) K/ul RBC (4.70-6.10) M/uL Hgb 8.0 L (14.0-18.0) g/dl Hct 24.8 L (42.0-52.0) % Plt Count (130-400) K/uL Neut # (Auto) (1.40-6.50) K/uL Lymph # (Auto) (1.20-3.40) K/uL Hendricks # (Auto) (0.11-0.59) K/uL Eos # (Auto) (0.00-0.50) K/uL Baso # (Auto) (0.00-0.20) K/uL Comprehensive Metabolic Panel 05/07/24 Range/Units 08:52 Sodium 138 (136-145) mmol/L Potassium 3.6 (3.5-5.1) mmol/L Chloride 108 H (98-107) mmol/L Carbon Dioxide 26 (21-32) mmol/L BUN 28 H (6-23) mg/dl Creatinine 0.75 (0.6-1.4) mg/dl Glucose 124 H (70-99(Fasting)) mg/dl Calcium 8.1 L (8.6-10.3) mg/dl AST 25 (13-39) U/L ALT 13 (7-52) U/L Alkaline Phosphatase 68 (34-104) U/L Total Protein 4.9 L (6.0-8.3) gm/dl Albumin 3.3 L (3.4-5.0) gm/dl Intake and Output 05/06/24 05/07/24 05/07/24 22:59 06:59 14:59 Intake Total 240 / 4899.55 Output Total 100 / 200 Balance 140 / 4699.55 Intake: Oral 240 / 240 Output: Urine 100 / 200 Diagnostic Findings Telemetry: Sinus/sinus tachycardia. Very brief episode of possible accelerated junctional rhythm around 50 bpm yesterday
[2024-05-07 14:25] LABS: Hematocrit (blood only) 24.6 % (42.0-52.0); Hemoglobin 8.1 g/dl (14.0-18.0)
[2024-05-07 20:30] LABS: Hemoglobin 7.4 g/dl (14.0-18.0)
[2024-05-07] MEDS: amLODIPine BESYLATE 5 MG TAB PO SCH (20:40)
[2024-05-08 02:01] LABS: Hemoglobin 7.6 g/dl (14.0-18.0); Mean Corpuscular Hemoglobin 30.6 pg (25.0-34.0); Mean Corpuscular Volume 92.7 fL (80.0-100.0); Mean Platelet Volume 10.1 fL (9.4-12.4); Platelet Count 153 K/uL (130-400); RDW Coefficient of Variation 15.1 % (11.5-14.5); RDW Standard Deviation 50.8 fL (36.4-46.3); Red Blood Count 2.48 M/uL (4.70-6.10); White Blood Count 7.81 K/ul (4.8-10.8)
[2024-05-08 02:15] LABS: Albumin Globulin Ratio 1.9 (0.9-2); Albumin Level 3.3 gm/dl (3.4-5.0); BUN Creatinine Ratio 34.7 (10-20); Creatinine Clr Calc Pharmacy 95.4 ml/min; Globulin 1.7 gm/dl (2.5-4.0); Magnesium 1.8 mg/dl (1.7-2.4); Phosphorus 2.1 mg/dl (2.5-4.9); Potassium 3.6 mmol/L (3.5-5.1)
[2024-05-08 08:03] LABS: Hematocrit (blood only) 24.2 % (42.0-52.0); Hemoglobin 7.9 g/dl (14.0-18.0)
--- NOTE | 2024-05-08 09:38 | Cardiology Progress Note ---
Date of Service May 08, 2024 Assessment & Plan (1) Syncope and collapse: (2) Retroperitoneal hematoma: (3) Hematoma of extraperitoneal space: (4) ASCVD (arteriosclerotic cardiovascular disease): (5) Ascending aortic aneurysm: (6) History of pulmonary embolism: (7) Recurrent strokes: Plan Hospitalized in January 2024 with spontaneous right thigh and retroperitoneal hematoma in the setting of supratherapeutic INR (5.5) following antibiotic treatment for UTI Hospitalized in February 2024 with hip pain post fall Hospitalized in March with a complicated UTI, gross hematuria. Readmitted now after an undefined syncope episode. Imaging this admission with a large amount of retroperitoneal, perinephric, and extraperitoneal hemorrhage. INR 4.3 on presentation, reversed with IV vitamin K and Kcentra. Prior to the present admission patient prescribed Warfarin anticoagulation due to history of prior DVT, PE, multiple recurrent strokes while on antiplatelet therapy, and past paroxysmal atrial fibrillation. Laboratory work with elevated troponin. Hemoglobin as low as 7.4 g/dL on 05/07 Known multivessel coronary artery disease including chronic right coronary artery occlusion Patient asymptomatic in regarding to angina symptoms. EKG without acute change TTE with similar wall motion abnormalities involving inferior posterior wall in comparison to prior studies. LV function preserved History of aortic root and ascending thoracic aortic aneurysm; imaging not suggestive of aortic dissection/involvement. Recommend medical management of the patient's underlying coronary artery disease. Continue telemetry monitoring while an inpatient. 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 Risks of anticoagulation felt to be greater than benefit Possible future Watchman procedure if recurrent PAF observed. Continue metoprolol and amlodipine Rosuvastatin to be resumed when able No losartan Patient may need long-term placement Admission and Anticipated Discharge Date Admission Date: May 06, 2024 Supervising Physician Co-Signing Physician Notes Patient seen and personally examined. Assessment and plan as outlined above. Care and management discussed personally with advanced provider and endorsed. Patient mildly disoriented overnight No acute cardiac complaints No arrhythmias on telemetry Strengths better today with patient able to be out of bed and walk to bathroom with walker Hemoglobin low but stable Heart rate and blood pressure controlled Will tentatively replace loop recorder Subjective Patient seen and examined. Chart, medications, and telemetry reviewed. No chest pain. No dyspnea. No palpitations. No orthopnea or PND. No lower extremity peripheral edema. Telemetry: Sinus with a first-degree AV block, heart rates predominantly in the 70s and 80s. Review of Systems Review of Systems: Complete Review of Systems is as stated above, negative, or noncontributory. Physical Exam Physical Exam: General: A&Ox3. NAD. HENT: Normocephalic. Atraumatic. Eyes: PER. Conjunctiva pink, sclera clear. Neck: Carotid bruits. No JVD. Heart: Regular at 90 bpm with occasional ectopic beat Lungs: Clear to auscultation. Abdomen: +BS. Soft. Nontender. No masses or organomegaly. Extremities: No clubbing, cyanosis, or edema. Limited neurological examination is without focal deficits. Pulses: radial=2/4, posterior tibial=2/4 on the left and 1-2/4 on the right. Results & Data Vital Signs (Past 12 Hours) Vital Signs Temp Pulse Pulse Resp BP BP Pulse Ox 05/08/24 07:29 36.8 C 77 18 109/61 94 05/08/24 07:12 88 05/08/24 03:29 36.6 C 80 15 108/49 L 90 05/08/24 00:27 85 05/07/24 23:00 36.8 C 87 18 113/66 95 O2 Del Method 05/08/24 07:29 Room Air 05/08/24 07:12 05/08/24 03:29 Room Air 05/08/24 00:27 05/07/24 23:00 Room Air Laboratory Results Cardiac Enzymes 05/07/24 05/08/24 Range/Units 08:52 01:46 AST 25 43 H (13-39) U/L Troponin I High Sens 649.5 H* D (0-20) pg/ml Coagulation 05/07/24 Range/Units 08:52 PT 10.7 (9.0-12.0) Seconds CBC 05/07/24 05/07/24 05/08/24 Range/Units 14:06 20:15 01:46 WBC 7.81 (4.8-10.8) K/ul RBC 2.48 L (4.70-6.10) M/uL Hgb 8.1 L 7.4 L 7.6 L (14.0-18.0) g/dl Hct 24.6 L 22.0 L 23.0 L (42.0-52.0) % Plt Count 153 (130-400) K/uL 05/08/24 Range/Units 07:35 WBC (4.8-10.8) K/ul RBC (4.70-6.10) M/uL Hgb 7.9 L (14.0-18.0) g/dl Hct 24.2 L (42.0-52.0) % Plt Count (130-400) K/uL Comprehensive Metabolic Panel 05/07/24 05/08/24 Range/Units 08:52 01:46 Sodium 138 138 (136-145) mmol/L Potassium 3.6 3.6 (3.5-5.1) mmol/L Chloride 108 H 108 H (98-107) mmol/L Carbon Dioxide 26 24 (21-32) mmol/L BUN 28 H 25 H (6-23) mg/dl Creatinine 0.75 0.72 (0.6-1.4) mg/dl Glucose 124 H 110 H (70-99(Fasting)) mg/dl Calcium 8.1 L 8.0 L (8.6-10.3) mg/dl AST 25 43 H (13-39) U/L ALT 13 20 (7-52) U/L Alkaline Phosphatase 68 69 (34-104) U/L Total Protein 4.9 L 5.0 L (6.0-8.3) gm/dl Albumin 3.3 L 3.3 L (3.4-5.0) gm/dl Intake and Output 05/07/24 05/08/24 05/08/24 22:59 06:59 14:59 Intake Total 360 / 360 Output Total 250 / 1811 801 / 1811 Balance 110 / -1451 -801 / -1451 Intake: Oral 360 / 360 Output: Urine 250 / 1260 800 / 1260 # Bowel Movements Other: Weight 95.7 kg Weight Measurement Method Built in [facility]
--- NOTE | 2024-05-08 10:17 | Hospitalist Progress Note ---
Date of Service May 08, 2024 Assessment & Plan (1) Syncope and collapse: (2) Hematoma of iliopsoas muscle: (3) Retroperitoneal bleed: (4) Hematoma of extraperitoneal space: Plan 83-year-old male past medical history significant for CAD status post stent, HTN, HLD, history of PAF/PE/recurrent cryptogenic stroke on chronic Coumadin, history of retroperitoneal bleed, PVD with a history of thoracic aortic aneurysm, ABDULLAHI on CPAP at night, BPH with chronic UTI, non -insulin-dependent diabetic who presents to ED after being found down next to his bed. Syncope Lactic acidosis Unwitnessed fall Possible Sepsis Patient was found on floor next to bed covered in dried feces all over and confused Pt was treated in ED for suspected sepsis, possible metabolic encephalopathy given significant lactic acidosis and mild leukocytosis He will have received 3L of IVF in ED along with mag and calcium IV Lactic acid 6.5 --> 4.8-->2.1 Infectious workup negative so far CT head did not show acute abnormalities Carotid USS showed atherosclerosis without hemodynamically significant stenosis Based on available results, unlikely sepsis Lactic acidosis likely due to ischemia in background home metformin Will stop cefepime for now and monitor Will get PT/OT eventually Retroperitoneal hemorrhage Acute on Chronic normocytic Anemia Supratherapeutic INR History of Retroperitoneal Bleed c/b R iliopsoas Hematoma History of recurrent CVA/cryptogenic CVA History of PE CT Abdomen and pelvis: Interval development of a large amount of intramuscular and retroperitoneal/extraperitoneal hemorrhage since CT of April 11, 2024. This includes intramuscular hemorrhage within the left psoas, iliopsoas, iliacus, left adductor and left thigh musculature, partially imaged on this exam. Associated extraperitoneal and retroperitoneal hemorrhage, including perinephric hemorrhage, INR on admission was 4.[address] discussed with Dr. Osman who recommended reversal with IV Vit K and Kcentra Type and cross, place 4 units on hold INR today is 1.0 Gen surg and Urology eval noted Hb downtrended from previous admission 13-14 --> 10.9 on admission Hb trended down. 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 EF 50-55%, mild to mod MR, aortic root and ascending aorta are mod to severely enlarged 4.7 and 5cm respectively Trop elevated [id number] Elevated trop is likely due to demand ischemia in the setting of acute on chronic anemia from retroperitoneal bleed Cardiology eval and recs noted Continue to hold losartan Continue amlodipine resumed by Cardiology Continue metoprolol HLD: Chronic Takes rosuvastatin at home, currently on hold CPK 630. 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 Prn pain meds DM2 on oral medications A1C 6.0% on admission Lantus/SSI inpatient ABDULLAHI: Cpap at HS DVT ppx: hold warfarin as above FULL CODE PCP: Abby Called son and updated him I spent a total of 50 minutes coordinating, documenting and providing care for this patient excluding time spent in performance of separately billed services Admission and Anticipated Discharge Date Admission Date: May 06, 2024 Subjective Patient seen and examined Reports generalized weakness especially in the LE Still reports bilateral groin pain with movement Denied dizziness, chest pain, cough, SOB, nausea, vomiting, dysuria, freq, urgency Denied any palpitation Physical Exam Constitutional: + well hydrated; no acute distress Eyes: PERRL, conjunctivae normal, anicteric sclerae Respiratory: normal respiratory effort, lungs clear to auscultation Cardiovascular: Rate/Rhythm: regular rate and regular rhythm Gastrointestinal (Abdomen): normal bowel sounds, soft, nontender, no hepatosplenomegaly Musculoskeletal: No pedal edema Left groin bruise. Nontender. No swelling Neurologic: PERRL, EOMI, accommodation nl, no face palsy, no dysarthria Psychiatric: A+Ox3, euthymic affect Results & Data Results & Data Vital Signs (Past 12 Hours) Vital Signs Temp Pulse Pulse Resp BP BP Pulse Ox 05/08/24 07:29 36.8 C 77 18 109/61 94 05/08/24 07:12 88 05/08/24 03:29 36.6 C 80 15 108/49 L 90 05/08/24 00:27 85 05/07/24 23:00 36.8 C 87 18 113/66 95 O2 Del Method 05/08/24 07:29 Room Air 05/08/24 07:12 05/08/24 03:29 Room Air 05/08/24 00:27 05/07/24 23:00 Room Air
[2024-05-08] MEDS: POTASSIUM CHLORIDE 10 MEQ TABCR PO ONE (10:46)
[2024-05-08 14:36] LABS: Hemoglobin 7.8 g/dl (14.0-18.0)
[2024-05-09 06:16] LABS: Hematocrit (blood only) 24.8 % (42.0-52.0); Mean Corpuscular Hemoglobin 29.7 pg (25.0-34.0); Mean Corpuscular Hgb Conc 32.3 g/dL (32.0-36.0); Mean Corpuscular Volume 92.2 fL (80.0-100.0); Mean Platelet Volume 10.2 fL (9.4-12.4); Platelet Count 167 K/uL (130-400); RDW Coefficient of Variation 15.5 % (11.5-14.5); RDW Standard Deviation 51.2 fL (36.4-46.3); Red Blood Count 2.69 M/uL (4.70-6.10); White Blood Count 6.98 K/ul (4.8-10.8)
[2024-05-09 06:34] LABS: Albumin Globulin Ratio 1.9 (0.9-2); Albumin Level 3.3 gm/dl (3.4-5.0); Bilirubin,Total 1.5 mg/dl (0.2-1.0); Calcium 8.2 mg/dl (8.6-10.3); Globulin 1.7 gm/dl (2.5-4.0); Magnesium 1.8 mg/dl (1.7-2.4); Phosphorus 2.4 mg/dl (2.5-4.9); Potassium 3.5 mmol/L (3.5-5.1)
[2024-05-09] MEDS: POT PHOSPHATE MONOBASIC W/ SOD TAB PO SCH (08:06)
--- NOTE | 2024-05-09 11:50 | Cardiology Progress Note ---
Date of Service May 09, 2024 Assessment & Plan (1) Syncope and collapse: (2) Retroperitoneal hematoma: (3) Hematoma of extraperitoneal space: (4) ASCVD (arteriosclerotic cardiovascular disease): (5) Ascending aortic aneurysm: (6) History of pulmonary embolism: (7) Recurrent strokes: Plan Hospitalized in January 2024 with spontaneous right thigh and retroperitoneal hematoma in the setting of supratherapeutic INR (5.5) following antibiotic treatment for UTI Hospitalized in February 2024 with hip pain post fall Hospitalized in March with a complicated UTI, gross hematuria. Readmitted now after an undefined syncope episode. Imaging this admission with a large amount of retroperitoneal, perinephric, and extraperitoneal hemorrhage. INR 4.3 on presentation, reversed with IV vitamin K and Kcentra. Prior to the present admission patient prescribed Warfarin anticoagulation due to history of prior DVT, PE, multiple recurrent strokes while on antiplatelet therapy, and past paroxysmal atrial fibrillation. Laboratory work with elevated troponin. Hemoglobin as low as 7.4 g/dL on 05/07, stable Known multivessel coronary artery disease including chronic right coronary artery occlusion Patient asymptomatic in regarding to angina symptoms. EKG without acute change Inpatient telemetry benign TTE with similar wall motion abnormalities involving inferior posterior wall in comparison to prior studies. LV function preserved History of aortic root and ascending thoracic aortic aneurysm; imaging not suggestive of aortic dissection/involvement. ? Underlying dementia, hospital acquire delirium. Recommendations Medical management of the patient's underlying coronary artery disease. Continue telemetry monitoring while an inpatient. Outpatient Loop Recorder exchange, RE: Garcia-Corrales event, evaluate for PAF. Anticoagulation risks are greater than benefit Possible future Watchman procedure if recurrent PAF observed. Continue metoprolol and amlodipine Rosuvastatin to be resumed when able No losartan Patient may need long-term placement Please contact with any questions or concerns. Admission and Anticipated Discharge Date Admission Date: May 06, 2024 Supervising Physician Co-Signing Physician Notes Patient seen and personally examined. Assessment and plan as outlined above. Care and management discussed personally with advanced provider and endorsed. Better oriented today. Hip. back more tolerable, hgb stable. Subjective Patient seen and examined. Chart, medications, and telemetry reviewed. Complaints: Left upper leg discomfort. No chest pain. No dyspnea. No palpitations. No orthopnea or PND. Telemetry: Sinus with a first-degree AV block, heart rates predominantly in the 70s and 80s. Review of Systems Review of Systems: Complete Review of Systems is as stated above, negative, or noncontributory. Physical Exam Physical Exam: General: NAD. HENT: Normocephalic. Atraumatic. Eyes: PER. Conjunctiva pink, sclera clear. Neck: Carotid bruits. No JVD. Heart: Regular at 84 bpm Lungs: Clear to auscultation. Abdomen: +BS. Soft. Nontender. No masses or organomegaly. Extremities: Improving ecchymosis left upper leg. No distal edema. Limited neurological examination is without focal deficits. Pulses: radial=2/4, posterior tibial=2/4 on the left and 1-2/4 on the right. Results & Data Vital Signs (Past 12 Hours) Vital Signs Temp Pulse Pulse Resp BP Pulse Ox O2 Del Method 05/09/24 11:32 36.8 C 83 17 121/62 91 Room Air 05/09/24 10:06 Room Air 05/09/24 08:47 36.6 C 108 H 20 136/69 91 Room Air 05/09/24 07:06 80 05/09/24 02:52 36.5 C 85 20 110/65 93 Room Air Laboratory Results Cardiac Enzymes 05/09/24 Range/Units 05:31 AST 36 (13-39) U/L CBC 05/08/24 05/09/24 Range/Units 14:02 05:31 WBC 6.98 (4.8-10.8) K/ul RBC 2.69 L (4.70-6.10) M/uL Hgb 7.8 L 8.0 L (14.0-18.0) g/dl Hct 24.0 L 24.8 L (42.0-52.0) % Plt Count 167 (130-400) K/uL Comprehensive Metabolic Panel 05/09/24 Range/Units 05:31 Sodium 139 (136-145) mmol/L Potassium 3.5 (3.5-5.1) mmol/L Chloride 108 H (98-107) mmol/L Carbon Dioxide 25 (21-32) mmol/L BUN 24 H (6-23) mg/dl Creatinine 0.60 (0.6-1.4) mg/dl Glucose 107 H (70-99(Fasting)) mg/dl Calcium 8.2 L (8.6-10.3) mg/dl AST 36 (13-39) U/L ALT 20 (7-52) U/L Alkaline Phosphatase 69 (34-104) U/L Total Protein 5.0 L (6.0-8.3) gm/dl Albumin 3.3 L (3.4-5.0) gm/dl Intake and Output 05/08/24 05/09/24 05/09/24 22:59 06:59 14:59 Intake Total 360 / 360 Output Total 450 / 1025 400 / 1025 Balance -90 / -665 -400 / -665 Intake: Oral 360 / 360 Output: Urine 450 / 1025 400 / 1025 Other: Weight 95.7 kg [facility]
--- NOTE | 2024-05-09 12:05 | Hospitalist Progress Note ---
Date of Service May 09, 2024 Assessment & Plan (1) Syncope and collapse: (2) Hematoma of iliopsoas muscle: (3) Retroperitoneal bleed: (4) Hematoma of extraperitoneal space: Plan 83-year-old male past medical history significant for CAD status post stent, HTN, HLD, history of PAF/PE/recurrent cryptogenic stroke on chronic Coumadin, history of retroperitoneal bleed, PVD with a history of thoracic aortic aneurysm, ABDULLAHI on CPAP at night, BPH with chronic UTI, non -insulin-dependent diabetic who presents to ED after being found down next to his bed. Syncope Lactic acidosis Unwitnessed fall Possible Sepsis Patient was found on floor next to bed covered in dried feces all over and confused Pt was treated in ED for suspected sepsis, possible metabolic encephalopathy given significant lactic acidosis and mild leukocytosis He will have received 3L of IVF in ED along with mag and calcium IV Lactic acid 6.5 --> 4.8-->2.1 Infectious workup negative so far CT head did not show acute abnormalities Carotid USS showed atherosclerosis without hemodynamically significant stenosis Based on available results, unlikely sepsis Lactic acidosis likely due to ischemia in background home metformin Will stop cefepime for now and monitor Will get PT/OT eventually Retroperitoneal hemorrhage Acute on Chronic normocytic Anemia Supratherapeutic INR History of Retroperitoneal Bleed c/b R iliopsoas Hematoma History of recurrent CVA/cryptogenic CVA History of PE CT Abdomen and pelvis: Interval development of a large amount of intramuscular and retroperitoneal/extraperitoneal hemorrhage since CT of April 11, 2024. This includes intramuscular hemorrhage within the left psoas, iliopsoas, iliacus, left adductor and left thigh musculature, partially imaged on this exam. Associated extraperitoneal and retroperitoneal hemorrhage, including perinephric hemorrhage, INR on admission was 4.[address] discussed with Dr. Osman who recommended reversal with IV Vit K and Kcentra Type and cross, place 4 units on hold INR today is 1.0 Gen surg and Urology eval noted Hb downtrended from previous admission 13-14 --> 10.9 on admission Hb trended down. Stable so far. Hb is 8 today Continue to monitor Hb Considering recurrent retroperitoneal hemorrhage, anticoagulation have been discontinued Patient will need follow up with Hematology as well considering his thrombotic as well as bleeding risk Elevated troponin Hypertension History of CAD status post stent Echo on 05/06/24 showed no significant change, mod conc LVH, septal motion consistent with conduction abnormality, mod size infe and post WMA with hypokinesis of segments. EF 50-55%, mild to mod MR, aortic root and ascending aorta are mod to severely enlarged 4.7 and 5cm respectively Trop elevated [id number] Elevated trop is likely due to demand ischemia in the setting of acute on chronic anemia from retroperitoneal bleed Cardiology eval and recs noted Losartan discontinued Continue amlodipine resumed by Cardiology Continue metoprolol Cardiology recommends outpatient Loop Recorder exchange, RE: Garcia-Corrales event, evaluate for PAF. Possible future Watchman procedure if recurrent PAF observed. HLD: Chronic Takes rosuvastatin at home, currently on hold CPK 630-->389. 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 Prn pain meds DM2 on oral medications A1C 6.0% on admission Lantus/SSI inpatient ABDULLAHI: Cpap at HS DVT ppx: hold warfarin as above FULL CODE PCP: Abby FELDER workign on rehab I spent a total of 50 minutes coordinating, documenting and providing care for this patient excluding time spent in performance of separately billed services Admission and Anticipated Discharge Date Admission Date: May 06, 2024 Subjective Patient seen and examined Still reports bilateral groin pain with movement Denied any other complaints on ROS Physical Exam Constitutional: + well hydrated; no acute distress Eyes: PERRL, conjunctivae normal, anicteric sclerae Respiratory: normal respiratory effort, lungs clear to auscultation Cardiovascular: Rate/Rhythm: regular rate and regular rhythm Gastrointestinal (Abdomen): normal bowel sounds, soft, nontender, no hepatosplenomegaly Musculoskeletal: No pedal edema Neurologic: PERRL, EOMI, accommodation nl, no face palsy, no dysarthria Psychiatric: A+Ox3, euthymic affect Results & Data Results & Data Vital Signs (Past 12 Hours) Vital Signs Temp Pulse Pulse Resp BP Pulse Ox O2 Del Method 05/09/24 11:32 36.8 C 83 17 121/62 91 Room Air 05/09/24 10:06 Room Air 05/09/24 08:47 36.6 C 108 H 20 136/69 91 Room Air 05/09/24 07:06 80 05/09/24 02:52 36.5 C 85 20 110/65 93 Room Air Laboratory Results Abnormal lab results 05/06/24 05/08/24 05/08/24 Range/Units 14:20 16:26 20:13 RBC (4.70-6.10) M/uL Hgb (14.0-18.0) g/dl Hct (42.0-52.0) % RDW Std Deviation (36.4-46.3) fL RDW Coeff of Argelia (11.5-14.5) % Chloride (98-107) mmol/L BUN (6-23) mg/dl BUN/Creatinine Ratio (10-20) Glucose (70-99(Fasting)) mg/dl POC Glucose 126 H 121 H (70-99) mg/dl Calcium (8.6-10.3) mg/dl Phosphorus (2.5-4.9) mg/dl Total Bilirubin (0.2-1.0) mg/dl Total Creatine Kinase (30-223) U/L Total Protein (6.0-8.3) gm/dl Albumin (3.4-5.0) gm/dl Globulin (2.5-4.0) gm/dl Crossmatch See Detail 05/09/24 05/09/24 05/09/24 Range/Units 05:31 07:20 11:39 RBC 2.69 L (4.70-6.10) M/uL Hgb 8.0 L (14.0-18.0) g/dl Hct 24.8 L (42.0-52.0) % RDW Std Deviation 51.2 H (36.4-46.3) fL RDW Coeff of Argelia 15.5 H (11.5-14.5) % Chloride 108 H (98-107) mmol/L BUN 24 H (6-23) mg/dl BUN/Creatinine Ratio 40.0 H (10-20) Glucose 107 H (70-99(Fasting)) mg/dl POC Glucose 116 H 122 H (70-99) mg/dl Calcium 8.2 L (8.6-10.3) mg/dl Phosphorus 2.4 L (2.5-4.9) mg/dl Total Bilirubin 1.5 H (0.2-1.0) mg/dl Total Creatine Kinase 389 H (30-223) U/L Total Protein 5.0 L (6.0-8.3) gm/dl Albumin 3.3 L (3.4-5.0) gm/dl Globulin 1.7 L (2.5-4.0) gm/dl Crossmatch
--- NOTE | 2024-05-09 22:45 | Electrocardiogram Report ---
Test Reason : Blood Pressure : */* mmHG Vent. Rate : 85 BPM Atrial Rate : 85 BPM P-R Int : 236 ms QRS Dur : 138 ms QT Int : 416 ms P-R-T Axes : 10 -47 194 degrees QTcB Int : 495 ms Sinus rhythm with 1st degree A-V block Left axis deviation Left ventricular hypertrophy Non-specific intra-ventricular conduction block T wave abnormality, consider lateral ischemia Abnormal ECG When compared with ECG of 03-Apr-2024 11:50, No significant change was found Confirmed by Harvey Queen ([id number] on 05/09/2024 10:45:19 PM Referred By: Confirmed By: Harvey Queen
--- NOTE | 2024-05-09 22:46 | Electrocardiogram Report ---
Test Reason : Blood Pressure : */* mmHG Vent. Rate : 72 BPM Atrial Rate : 72 BPM P-R Int : 236 ms QRS Dur : 140 ms QT Int : 422 ms P-R-T Axes : 33 -24 205 degrees QTcB Int : 462 ms Sinus rhythm with 1st degree A-V block Non-specific intra-ventricular conduction block T wave abnormality, consider inferior ischemia T wave abnormality, consider anterolateral ischemia Abnormal ECG When compared with ECG of 06-May-2024 07:53, No significant change was found Confirmed by Harvey Queen ([id number] on 05/09/2024 10:46:06 PM Referred By: REFERRED SELF Confirmed By: Harvey Queen
[2024-05-10 07:40] LABS: Hematocrit (blood only) 26.9 % (42.0-52.0); Mean Corpuscular Hemoglobin 31.1 pg (25.0-34.0); Mean Corpuscular Hgb Conc 33.5 g/dL (32.0-36.0); Mean Corpuscular Volume 93.1 fL (80.0-100.0); Mean Platelet Volume 10.6 fL (9.4-12.4); Nucleated RBC # (auto) 0.04 K/uL (0.00-0.12); Nucleated RBC % (auto) 0.6 %; Platelet Count 206 K/uL (130-400); RDW Coefficient of Variation 15.9 % (11.5-14.5); RDW Standard Deviation 52.2 fL (36.4-46.3); Red Blood Count 2.89 M/uL (4.70-6.10); White Blood Count 6.33 K/ul (4.8-10.8)
[2024-05-10 07:53] LABS: Albumin Globulin Ratio 1.9 (0.9-2); Albumin Level 3.4 gm/dl (3.4-5.0); BUN Creatinine Ratio 39.7 (10-20); Bilirubin,Total 2.5 mg/dl (0.2-1.0); Calcium 8.6 mg/dl (8.6-10.3); Creatinine Clr Calc Pharmacy 108.3 ml/min; Globulin 1.8 gm/dl (2.5-4.0); Potassium 3.8 mmol/L (3.5-5.1); Total Protein 5.2 gm/dl (6.0-8.3)
--- NOTE | 2024-05-10 11:07 | Hospitalist Progress Note ---
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 Syncope Lactic acidosis Unwitnessed fall Possible Sepsis Patient was found on floor next to bed covered in dried feces all over and confused Pt was treated in ED for suspected sepsis, possible metabolic encephalopathy given significant lactic acidosis and mild leukocytosis He will have received 3L of IVF in ED along with mag and calcium IV Lactic acid 6.5 --> 4.8-->2.1 Infectious workup negative so far CT head did not show acute abnormalities Carotid USS showed atherosclerosis without hemodynamically significant stenosis Based on available results, unlikely sepsis Lactic acidosis likely due to ischemia in background home metformin Sepsis ruled out Retroperitoneal hemorrhage Acute on Chronic normocytic Anemia Supratherapeutic INR History of Retroperitoneal Bleed c/b R iliopsoas Hematoma History of recurrent CVA/cryptogenic CVA History of PE CT Abdomen and pelvis: Interval development of a large amount of intramuscular and retroperitoneal/extraperitoneal hemorrhage since CT of April 11, 2024. This includes intramuscular hemorrhage within the left psoas, iliopsoas, iliacus, left adductor and left thigh musculature, partially imaged on this exam. Associated extraperitoneal and retroperitoneal hemorrhage, including perinephric hemorrhage, INR on admission was 4.[address] discussed with Dr. Osman who recommended reversal with IV Vit K and Kcentra INR was reversed Gen surg and Urology eval noted Hb downtrended from previous admission 13-14 --> 10.9 on admission Hb trended down. Stable so far. Hb is 9 today Considering recurrent retroperitoneal hemorrhage, anticoagulation have been discontinued Patient will need follow up with Hematology as well considering his thrombotic as well as bleeding risk Elevated troponin Hypertension History of CAD status post stent Echo on 05/06/24 showed no significant change, mod conc LVH, septal motion consistent with conduction abnormality, mod size infe and post WMA with hypokinesis of segments. EF 50-55%, mild to mod MR, aortic root and ascending ao rta are mod to severely enlarged 4.7 and 5cm respectively Trop elevated [id number] Elevated trop is likely due to demand ischemia in the setting of acute on chronic anemia from retroperitoneal bleed Cardiology eval and recs noted Losartan discontinued Continue amlodipine resumed by Cardiology Continue metoprolol Cardiology recommends outpatient Loop Recorder exchange, RE: Garcia-Corrales event, evaluate for PAF. Possible future Watchman procedure if recurrent PAF observed. HLD: Chronic Takes rosuvastatin at home, currently on hold CPK 630-->389. 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 once bed is available I spent a total of 50 minutes coordinating, documenting and providing care for this patient excluding time spent in performance of separately billed services Admission and Anticipated Discharge Date Admission Date: May 06, 2024 Subjective Patient seen and examined Reports feeling better today No new complaints Denied any other complaints on ROS Physical Exam Constitutional: + well hydrated; no acute distress Eyes: PERRL, conjunctivae normal, anicteric sclerae Respiratory: normal respiratory effort, lungs clear to auscultation Cardiovascular: Rate/Rhythm: regular rate and regular rhythm Gastrointestinal (Abdomen): normal bowel sounds, soft, nontender, no hepatosplenomegaly Musculoskeletal: No pedal edema. Left upper thigh bruise Neurologic: PERRL, EOMI, accommodation nl, no face palsy, no dysarthria Psychiatric: A+Ox3, euthymic affect Results & Data Results & Data Vital Signs (Past 12 Hours) Vital Signs Temp Pulse Pulse Resp BP Pulse Ox O2 Del Method 05/10/24 07:40 36.8 C 92 H 18 125/67 93 Room Air 05/10/24 07:26 Room Air 05/10/24 07:10 78 05/10/24 04:26 36.5 C 90 18 150/88 H 93 Room Air 05/09/24 23:22 36.7 C 93 H 20 156/90 H 92 Room Air Laboratory Results Abnormal lab results 05/06/24 05/09/24 05/09/24 Range/Units 14:20 11:39 16:31 RBC (4.70-6.10) M/uL Hgb (14.0-18.0) g/dl Hct (42.0-52.0) % RDW Std Deviation (36.4-46.3) fL RDW Coeff of Argelia (11.5-14.5) % Chloride (98-107) mmol/L BUN (6-23) mg/dl BUN/Creatinine Ratio (10-20) Glucose (70-99(Fasting)) mg/dl POC Glucose 122 H 129 H (70-99) mg/dl Total Bilirubin (0.2-1.0) mg/dl Total Protein (6.0-8.3) gm/dl Globulin (2.5-4.0) gm/dl Crossmatch See Detail 05/09/24 05/10/24 05/10/24 Range/Units 19:47 06:57 07:10 RBC 2.89 L (4.70-6.10) M/uL Hgb 9.0 L (14.0-18.0) g/dl Hct 26.9 L (42.0-52.0) % RDW Std Deviation 52.2 H (36.4-46.3) fL RDW Coeff of Argelia 15.9 H (11.5-14.5) % Chloride 108 H (98-107) mmol/L BUN 25 H (6-23) mg/dl BUN/Creatinine Ratio 39.7 H (10-20) Glucose 106 H (70-99(Fasting)) mg/dl POC Glucose 108 H 119 H (70-99) mg/dl Total Bilirubin 2.5 H D (0.2-1.0) mg/dl Total Protein 5.2 L (6.0-8.3) gm/dl Globulin 1.8 L (2.5-4.0) gm/dl Crossmatch
[2024-05-10] MEDS: traMADol HCL 50 MG TABLET PO PRN (19:30)
[2024-05-11] MEDS: MELATONIN 3 MG TAB PO PRN (01:39)
[2024-05-11 06:44] LABS: Hematocrit (blood only) 28.5 % (42.0-52.0); Hemoglobin 9.3 g/dl (14.0-18.0); Mean Corpuscular Hemoglobin 30.7 pg (25.0-34.0); Mean Corpuscular Hgb Conc 32.6 g/dL (32.0-36.0); Mean Corpuscular Volume 94.1 fL (80.0-100.0); Mean Platelet Volume 10.4 fL (9.4-12.4); Nucleated RBC # (auto) 0.04 K/uL (0.00-0.12); Nucleated RBC % (auto) 0.5 %; Platelet Count 216 K/uL (130-400); RDW Coefficient of Variation 16.5 % (11.5-14.5); RDW Standard Deviation 53.2 fL (36.4-46.3); Red Blood Count 3.03 M/uL (4.70-6.10)
[2024-05-11 07:08] LABS: BUN Creatinine Ratio 42.9 (10-20); Calcium 8.6 mg/dl (8.6-10.3); Creatinine Clr Calc Pharmacy 121.7 ml/min; Potassium 3.7 mmol/L (3.5-5.1)
[2024-05-11 07:41] VITALS: RESP 18
--- NOTE | 2024-05-11 10:46 | Discharge Summary ---
Date of Service May 11, 2024 Admission HPI Per Admitting Provider Mr. 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 Hx provided from pt himself and chart review. Pt was technically a, "trauma alert," due to being on warfarin and being found on ground, but it is suspected he fell out of bed. Initially when pt presented to ED he was very confused and hx unobtainable. He was found by son this morning laying out of bed, covered in stool and confused. When asked what the patient last remembers, he states, "going to bed." He does not recall any events of falling out of bed. He denies any recent illness. He re calls being hospitalized in March due to hematuria, blood in his R pelvis and a UTI. He typically ambulates with assist device. He states he lives with his and son. He denies f/c/s, chest pain, sob, n/v/d. He c/o R hip pain which has been present for weeks and he is following orthopedics. In ED pt was hemodynamically stable. He had a lactic acidosis of 6.5, elevated trop in 60s, glucose 223, INR 4.3, wbc 13k,mag 1.6, CK WNL, NH3 WNL, UA negative and head CT negative. He received 2L of IVF and was covered empirically with IV cefepime. Per ED RN upon my evaluation and 1.5L of IVF pt has become more alert and less confused. Admission Exam Per Admitting Provider Constitutional: WD/WN, male, vitals as above, NAD, sitting up in bed, pleasant, conversing easily , [place] Head: Normocephalic, Atraumatic Eyes: PERRL, conjunctivae normal, anicteric sclerae ENMT: external ear and nose normal, oropharynx normal Neck: trachea midline, no thyromegaly normal visual inspection Respiratory: normal respiratory effort, lungs clear to auscultation, no wheeze, rales, rhonchi. Normal insp/exp effort, no accessory muscle use Cardiovascular: RRR, no murmur, no edema Vessels: no JVD or carotid bruit Chest: normal inspection of chest Abdomen: normal bowel sounds, soft, nontender, no hepatosplenomegaly Musculoskeletal: no cyanosis or clubbing, AROM x 4 Skin: no rashes, + fecal matter crusted to skin, warm and dry normal turgor Neurologic: no face palsy, no dysarthria CN's II-XI intact bilaterally and moves all extremities Psychiatric: A+Ox3 to basics, euthymic affect Lymphatic: no cervical or axillary lymphadenopathy : deferred Principal Diagnosis Syncope Retroperitoneal hemorrhage Iliopsoas hematoma Lactic acidosis Acute on chronic anemia Discharge Exam Constitutional + well hydrated; no acute distress Eyes PERRL, conjunctivae normal, anicteric sclerae ENMT +hearing deficit Respiratory normal respiratory effort, lungs clear to auscultation Cardiovascular Rate/Rhythm: regular rate and regular rhythm Gastrointestinal (Abdomen) normal bowel sounds, soft, nontender, no hepatosplenomegaly Musculoskeletal No pedal edema. +Left thigh bruise Neurologic PERRL, EOMI, accommodation nl, no face palsy, no dysarthria Psychiatric A+Ox3, euthymic affect Discharge Data Allergies Allergy/AdvReac Type Severity Reaction Status Date / Time propoxyphene Allergy Intermediate Hallucinati Verified 02/27/24 23:05 ng omeprazole Allergy Unknown Unknown Verified 02/27/24 23:05 ELINOR Inhibitors AdvReac Mild Cough Verified 02/27/24 23:05 gabapentin AdvReac Mild Nausea Verified 02/27/24 23:05 Consultations 05/06/24 08:55 ED Decision to Admit Stat 05/06/24 13:26 Consult Urology Routine 05/06/24 13:42 Consult General Surgery Routine 05/07/24 11:37 Consult Cardiology Routine Ordered Studies 05/06/24 07:37 CT head/brain wo con Stat There is no hemorrhage, mass effect, or evidence of acute territorial ischemia by CT criteria. 05/06/24 09:57 CT Abd and Pelvis [CT abd pelvis wo con] Stat There are trace bilateral pleural effusions. Dilatation of visualized portions of the ascending aorta measuring up to 5.1 cm is again noted. There is extensive coronary artery calcification. The heart is mildly enlarged. There are gallstones within the gallbladder are present. Unenhanced images of the liver, spleen, adrenal glands and pancreas are unremarkable. There is no hydronephrosis. There is mild bladder wall thickening. Water attenuation left renal lesions are suboptimally assessed on this unenhanced exam but favor cysts. There has been interval development of extensive intramuscular hemorrhage within the left psoas, iliopsoas and iliacus muscles as well as partially visualized intramuscular hemorrhage within the left adductor and proximal left thigh musculature. There is moderate associated extraperitoneal/retroperitoneal hemorrhage which extends across the midline. This mildly displaces the left kidney. Bilateral perirenal hemorrhage is present. Old right iliopsoas hematoma is present. There is also hemorrhage within a left inguinal hernia. No acute fractures are identified. Postoperative finding within the spine are unchanged. The prostate is enlarged. IMPRESSION: 1. Interval development of a large amount of intramuscular and retroperitoneal/extraperitoneal hemorrhage since CT of April 11, 2024. This includes intramuscular hemorrhage within the left psoas, iliopsoas, iliacus, left adductor and left thigh musculature, partially imaged on this exam. Associated extraperitoneal and retroperitoneal hemorrhage, including perinephric hemorrhage, as described above. This finding will be called/faxed to the ordering provider at time of dictation. 2. No hydronephrosis. 3. No bowel obstruction. 4. Old right iliopsoas hematoma with intramuscular calcifications. 05/06/24 13:50 Carotid duplex [US carotid doppler BI] Routine RIGHT CAROTID: The peak systolic velocity measured in the right ICA is 51 cm/sec. The end diastolic velocity measured 19 cm/sec. The ICA to CCA ratio measured 0.67 which correlates with a stenosis of 0-50%. [id number] atherosclerosis. LEFT CAROTID: The peak systolic velocity measured in the left ICA is 55 cm/sec. The end diastolic velocity measured 19 cm/sec. The ICA to CCA ratio measured 1.0 which correlates with a stenosis of 0-50%. [id number]-lr-dhtchrpu atherosclerosis. There is normal antegrade vertebral flow bilaterally. IMPRESSION: 1. Atherosclerosis without hemodynamically significant stenosis. 2. Normal antegrade vertebral flow bilaterally. 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 Syncope Lactic acidosis Unwitnessed fall Patient was found on floor next to bed covered in dried feces all over and confused Pt was treated in ED for suspected sepsis, possible metabolic encephalopathy given significant lactic acidosis and mild leukocytosis He will have received 3L of IVF in ED along with mag and calcium IV Lactic acid 6.5 --> 4.8-->2.1 Infectious workup was negative CT head did not show acute abnormalities Carotid USS showed atherosclerosis without hemodynamically significant stenosis Based on available results, unlikely sepsis Lactic acidosis likely due to ischemia in background home metformin Sepsis ruled out Retroperitoneal hemorrhage Acute on Chronic normocytic Anemia Supratherapeutic INR History of Retroperitoneal Bleed c/b R iliopsoas Hematoma History of recurrent CVA/cryptogenic CVA History of PE CT Abdomen and pelvis: Interval development of a large amount of intramuscular and retroperitoneal/extraperitoneal hemorrhage since CT of April 11, 2024. This includes intramuscular hemorrhage within the left psoas, iliopsoas, iliacus, left adductor and left thigh musculature, partially imaged on this exam. Associated extraperitoneal and retroperitoneal hemorrhage, including perinephric hemorrhage, INR on admission was 4.[address] discussed with Dr. Osman who recommended reversal with IV Vit K and Kcentra INR was reversed Hb downtrended from previous admission 13-14 --> 10.9 on admission Hb trended down and stabilized. Hb is 9 today Considering recurrent retroperitoneal hemorrhage, anticoagulation has been discontinued Patient will need follow up with Hematology as well considering his thrombotic as well as bleeding risk. PCP to arrange this Elevated troponin Hypertension History of CAD status post stent Echo on 05/06/24 showed no significant change, mod conc LVH, septal motion consistent with conduction abnormality, mod size infe and post WMA with hypokine sis of segments. EF 50-55%, mild to mod MR, aortic root and ascending aorta are mod to severely enlarged 4.7 and 5cm respectively Trop elevated [id number] Elevated trop is likely due to demand ischemia in the setting of acute on chronic anemia from retroperitoneal bleed Cardiology evaluated while inpatient Losartan discontinued Continue amlodipine and metoprolol He needs to follow up with Cardiology outpatient. Cardiology recommends outpatient Loop Recorder exchange, RE: Garcia-Corrales event, evaluate for PAF. Possible future Watchman procedure if recurrent PAF observed. HLD: Chronic Takes rosuvastatin at home. This was held while inpatient CPK 630-->389. 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 Prn pain meds DM2 Continue home antidiabetic regimen A1C 6.0% on admission ABDULLAHI: Cpap at HS Total Time Total Time Spent Total Time Spent (In Minutes): 45 Total Time Includes: Examination of the Patient, Discharge Planning, Medication Reconciliation and Other Discharge Plan Discharge Items Patient Disposition: Transfer Inpatient Rehab Fac Reason For Visit: Found down Discharge Diagnosis: Syncope Retroperitoneal hemorrhage Iliopsoas hematoma Lactic acidosis Acute on chronic anemia Condition on Discharge: Serious Activity: As commented below Activity Comment: As recommended by Physical therapist Non-emergency contact: Primary Care Provider and Vamp Stitcher Call non-emergency contact if: you have any medication questions and your symptoms worsen Follow-up/Referrals: Anurag Mora MD [Primary Care Provider] - Diet: Carb Consistent or DM2, Heart Healthy and Low Sodium (2gm) Addtl Attending Provider Instructions: Mr Morfin You were admitted to the hospital and managed for the above diagnoses. Your blood thinner, warfarin was stopped. Please do not resume this on discharge for now. You need to follow up with Hematology for further evaluation of your bleeding r isk. You also need to follow up with Cardiology who will arrange for outpatient Loop recorder and other treatment Please stop taking losartan for now. You are being discharged to [facility] for rehab It was a pleasure taking care of you Pending Studies at Discharge: No Stand-Alone Forms: My [facility] Skilled Items Patient informed of condition?: Yes DNR: No Discharge Level of Care: Acute rehab Communicable Disease: No Discharge Prognosis: Stable Lines: None Urinary Catheter: No Medications and DC Order Prescriptions: Continued methenamine hippurate 1 gram tablet 1 g PO BID Qty: 180 3RF Hold Instructions: Until complete with antibiotics pantoprazole 40 mg tablet,delayed release (DR/EC) 40 mg PO QAM metoprolol succinate 25 mg tablet extended release 24 hr 25 mg PO QAM rosuvastatin 20 mg tablet 20 mg PO PM nitroglycerin 0.4 mg Tablet, Sublingual 0.4 mg sublingual UD PRN (Reason: Chest Pain) cetirizine [Zyrtec] 10 mg Tablet 10 mg PO PM folic acid 1 mg Tablet 1 mg PO QAM polyethylene glycol 3350 [Miralax] 17 gram/dose Powder 17 g PO DAILY PRN (Reason: Constipation) lorazepam 1 mg tablet 0.5 mg PO ONCE HS PRN (Reason: Insomnia) cholecalciferol (vitamin D3) [Vitamin D3] 25 mcg (1,000 unit) Tablet 25 mcg PO PM ropinirole 0.25 mg Tablet 0.25 mg PO HS Rx Instructions: take this med with food ferrous sulfate [Iron (ferrous sulfate)] 325 mg (65 mg iron) Tablet 325 mg PO QPM Metamucil 3.4 gram/5.4 gram Powder 1 tsp PO DAILY PRN (Reason: Constipation) metformin 1,000 mg tablet 1,000 mg PO BID duloxetine 60 mg capsule,delayed release(DR/EC) 60 mg PO QPM amlodipine 2.5 mg tablet 2.5 mg PO QAM Hold Instructions: Hold until told to resume by PCP calcipotriene 0.005 % Cream 1 applic TOPICAL .BID UD Rx Instructions: rub in gently and completely dutasteride 0.5 mg capsule 0.5 mg PO HS Rx Instructions: TAKE 1 CAPSULE BY MOUTH AT BEDTIME cyanocobalamin (vitamin B-12) [Vitamin B-12] 1,000 mcg Tablet 1,000 mcg PO DAILY tamsulosin 0.4 mg capsule 0.4 mg PO DAILY acetaminophen 325 mg Tablet 650 mg PO QID PRN (Reason: mild pain (scale score 1-4)) Qty: 0 0RF tramadol 50 mg Tablet 25 - 50 mg PO Q4H PRNQty: 0 0RF diclofenac sodium [Voltaren Arthritis Pain] 1 % Gel 4 g EXT Q8H Qty: 0 0RF Discontinued losartan 50 mg tablet 50 mg PO PM Hold Instructions: Hold until told to resume by PCP Rx Instructions: Patient states this dose warfarin 2.5 mg Tablet 5 mg PO [id number] Rx Instructions: TAKE 5MG ( 2.5MG X TWO TABS) EVERY SUNDAY AND SUNDAY. warfarin 2.5 mg tablet 2.5 mg PO [id number] Rx Instructions: TAKE 2.5MG EVERY SUNDAY/SUNDAY/SUNDAY/SUNDAY/SUNDAY Discharge Orders: Discharge Order (Routine); Ordered 05/11/24 Ordered By: Andressa Griggs/Other Patient Handouts: Managing Type 2 Diabetes Admission Data Admit Date/Time: 05/06/24 09:12 Attending Provider: Andressa Barclay I. Admit Provider: Dustin Velazquez Primary Care Provider: Anurag Mora Other Providers: Dustin Velazquez; Antony Haywood; Adán Morales; Jagdeep Poole; [facility]
[2024-05-11 11:29] VITALS: TEMP 98.2
--- NOTE | 2024-05-11 15:06 | Hospitalist Progress Note ---
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 Syncope Lactic acidosis Unwitnessed fall Patient was found on floor next to bed covered in dried feces all over and confused Pt was treated in ED for suspected sepsis, possible metabolic encephalopathy given significant lactic acidosis and mild leukocytosis He will have received 3L of IVF in ED along with mag and calcium IV Lactic acid 6.5 --> 4.8-->2.1 Infectious workup negative so far CT head did not show acute abnormalities Carotid USS showed atherosclerosis without hemodynamically significant stenosis Based on available results, unlikely sepsis Lactic acidosis likely due to ischemia in background home metformin Sepsis ruled out Retroperitoneal hemorrhage Acute on Chronic normocytic Anemia Supratherapeutic INR History of Retroperitoneal Bleed c/b R iliopsoas Hematoma History of recurrent CVA/cryptogenic CVA History of PE CT Abdomen and pelvis: Interval development of a large amount of intramuscular and retroperitoneal/extraperitoneal hemorrhage since CT of April 11, 2024. This includes intramuscular hemorrhage within the left psoas, iliopsoas, iliacus, left adductor and left thigh musculature, partially imaged on this exam. Associated extraperitoneal and retroperitoneal hemorrhage, including perinephric hemorrhage, INR on admission was 4.[address] discussed with Dr. Osman who recommended reversal with IV Vit K and Kcentra INR was reversed Gen surg and Urology eval noted Hb downtrended from previous admission 13-14 --> 10.9 on admission Hb trended down. Stable so far. Hb is 9.3 today Considering recurrent retroperitoneal hemorrhage, anticoagulation has been discontinued Patient will need follow up with Hematology as well considering his thrombotic as well as bleeding risk Elevated troponin Hypertension History of CAD status post stent Echo on 05/06/24 showed no significant change, mod conc LVH, septal motion consistent with conduction abnormality, mod size infe and post WMA with hypokinesis of segments. EF 50-55%, mild to mod MR, aortic root and ascending aorta are mod to severely enlarged 4.7 and 5cm respectively Trop elevated [id number] Elevated trop is likely due to demand ischemia in the setting of acute on chronic anemia from retroperitoneal bleed Cardiology eval and recs noted Losartan discontinued Continue amlodipine resumed by Cardiology Continue metoprolol Cardiology recommends outpatient Loop Recorder exchange, RE: Garcia-Corrales event, evaluate for PAF. Possible future Watchman procedure if recurrent PAF observed. HLD: Chronic Takes rosuvastatin at home, currently on hold CPK 630-->389. 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 CM working on that Admission and Anticipated Discharge Date Admission Date: May 06, 2024 Subjective Patient seen and examined Reports feeling tired today and a little congested on waking up Reports some groin pain with movement Denied other complaints Physical Exam Constitutional: + well hydrated; no acute distress Eyes: PERRL, conjunctivae normal, anicteric sclerae ENMT: +hearing deficits Respiratory: normal respiratory effort, lungs clear to auscultation Cardiovascular: Rate/Rhythm: regular rate and regular rhythm Gastrointestinal (Abdomen): normal bowel sounds, soft, nontender, no hepatosplenomegaly Musculoskeletal: No pedal edema. Left thigh bruise Neurologic: PERRL, EOMI, accommodation nl, no face palsy, no dysarthria Psychiatric: A+Ox3, euthymic affect Results & Data Results & Data Vital Signs (Past 12 Hours) Vital Signs Temp Pulse Pulse Resp BP Pulse Ox O2 Del Method 05/11/24 11:28 36.8 C 78 18 148/81 H 90 Room Air 05/11/24 07:40 36.6 C 86 18 119/72 92 Room Air 05/11/24 07:30 80 05/11/24 07:30 Room Air Laboratory Results Abnormal lab results 05/10/24 05/10/24 05/11/24 Range/Units 16:11 20:02 06:26 RBC 3.03 L (4.70-6.10) M/uL Hgb 9.3 L (14.0-18.0) g/dl Hct 28.5 L (42.0-52.0) % RDW Std Deviation 53.2 H (36.4-46.3) fL RDW Coeff of Argelia 16.5 H (11.5-14.5) % BUN 24 H (6-23) mg/dl Creatinine 0.56 L (0.6-1.4) mg/dl BUN/Creatinine Ratio 42.9 H (10-20) Glucose 107 H (70-99(Fasting)) mg/dl POC Glucose 136 H 104 H (70-99) mg/dl 05/11/24 05/11/24 Range/Units 07:11 10:58 RBC (4.70-6.10) M/uL Hgb (14.0-18.0) g/dl Hct (42.0-52.0) % RDW Std Deviation (36.4-46.3) fL RDW Coeff of Argelia (11.5-14.5) % BUN (6-23) mg/dl Creatinine (0.6-1.4) mg/dl BUN/Creatinine Ratio (10-20) Glucose (70-99(Fasting)) mg/dl POC Glucose 105 H 137 H (70-99) mg/dl
[2024-05-11 15:37] VITALS: BP 113/71; O2SAT 94
[2024-05-11 15:59] VITALS: PULSE 79
== END 2024-05-11 17:27 | DRG 371 ==
LOC: ED 07:28 → EDINP 09:12 → SUATTDRO 09:12 → 2E 15:46